=== PATIENT | female | born 1950 | race Caucasian/White ===

== ENCOUNTER 2020-06-16 15:19 | Inpatient (IN) | payer MEDICARE, BC, OTHER ==
[~2020-06-16] VITALS: Ht 175.3 cm; Wt 92.6 kg
[2020-06-16] MEDS ORDERED: METO-239 PO (18:25)
[2020-06-16] MEDS ORDERED: METF500T PO (18:25)
[2020-06-16] MEDS ORDERED: QUET50TA5 PO (18:25)
[2020-06-16] MEDS ORDERED: LACT1CAP2 PO (18:25)
[2020-06-16] MEDS ORDERED: INSU100I13 SQ (18:25)
[2020-06-16] MEDS ORDERED: vitamin d PO (18:25)
[2020-06-16] MEDS ORDERED: ATOR40TA PO (18:25)
[2020-06-16] MEDS ORDERED: MELA3TAB4 PO (18:25)
[2020-06-16] MEDS ORDERED: ASPI-889 PO (18:25)
[2020-06-16] MEDS ORDERED: APIX5TAB3 PO (18:25)
[2020-06-16] MEDS ORDERED: MULT-121 PO (18:25)
[2020-06-16] MEDS ORDERED: OMEP20CA16 PO (18:25)
[2020-06-16] MEDS ORDERED: GABA100C81 PO (18:25)
[2020-06-16] MEDS ORDERED: DIVA125C2 PO (18:25)
[2020-06-16] MEDS ORDERED: HYDR-2155 PO (18:25)
[2020-06-16] MEDS ORDERED: CYAN500T17 PO (18:25)
[2020-06-16] MEDS ORDERED: LINA5TAB4 PO (18:25)
[2020-06-16] MEDS ORDERED: NICO1PAT25 TD (18:25)
[2020-06-16] MEDS ORDERED: MAG HYDROX/AL HYDROX/SIMETH 30 ML ORAL.SUSP PO PRN (20:30)
[2020-06-16] MEDS ORDERED: METHYL SALICYLATE/MENTHOL TOPICAL OINTMENT 57GM TUBE. TP PRN (20:30)
[2020-06-16] MEDS ORDERED: MAGNESIUM HYDROXIDE 2,400 MG/30 ML ORAL.SUSP. PO PRN (20:30)
[2020-06-16] MEDS ORDERED: INSU100I40 SQ (20:52)
[2020-06-16 20:55] VITALS: BP 194/90
[2020-06-16] MEDS ORDERED: DEXTROSE 50% 25 GM / 50ML DISP.SYRIN. IV PRN (21:00)
[2020-06-16] MEDS ORDERED: HYDROcodone/APAP 5/325MG 1 TAB TABLET PO PRN (21:00)
--- NOTE | 2020-06-16 21:53 | PDOC ---
Exam Note: Edgar Note: Please also refer to the separate dictated note~for this date of service dictated separately.~Patient seen individually. Discussed the patient with Nursing staff reviewed the chart.~Reviewed interim history and current functioning. Reviewed vital signs,~Labs/ Radiology~and current medications noted below. Continue current treatment with the changes noted in the dictated addendum note Assessment: Vital Signs/I&O: Vital Signs Date Time Temp Pulse Resp B/P (MAP) Pulse Ox O2 Delivery O2 Flow Rate FiO2 06/16/20 20:55 98.3 103 20 194/90 (124) 97 Room Air Labs: Laboratory Tests Test 06/16/20 20:21 Glucose (Fingerstick) 240 mg/dL (70-99) H Current Medications: I have reviewed the current psychotropics carefully including drug interactions. Risk benefit ratio favors no change other than as noted in my dictated progress note. Diagnosis: Problems: (1) Schizoaffective disorder, bipolar type CHAVO WANG MD Jun 16, 2020 21:53
[2020-06-16] MEDS: ATORVASTATIN CALCIUM 20 MG TABLET PO SCH ×2 (22:42→22:59)
[2020-06-16] MEDS: APIXABAN 5 MG TABLET. PO SCH (22:42)
[2020-06-16] MEDS: MELATONIN 3 MG TABLET PO SCH ×2 (22:42→23:00)
[2020-06-16] MEDS: DIVALPROEX 125 MG CAP.SPRINK PO SCH ×2 (22:42→22:59)
[2020-06-16] MEDS: QUEtiapine 50 MG TABLET. PO SCH (22:42)
[2020-06-16] MEDS: GABAPENTIN 100 MG CAPSULE. PO SCH ×2 (22:42→23:00)
[2020-06-16 22:50] LABS: BASO % 0 % (0-3); EOS # 0.1 x10^3/uL (0.0-0.7); EOS % 2 % (0-3); HEMOGLOBIN 11.3 g/dL (12.0-15.5); LYMPH # 2.7 x10^3/uL (1.0-4.8); LYMPH % 31 % (24-48); MEAN CORPUSCULAR HEMOGLOBIN 28 pg (25-35); MEAN CORPUSCULAR HGB CONC 32 g/dL (31-37); MEAN CORPUSCULAR VOLUME 85 fL (79-100); MONO # 0.8 x10^3/uL (0.0-1.1); MONO % 8 % (0-9); NEUT # 5.3 x10^3uL (1.8-7.7); NEUT % 59 % (31-73); PLATELET COUNT 252 x10^3/uL (140-400); RED BLOOD COUNT 4.11 x10^6/uL (3.50-5.40); RED CELL DISTRIBUTION WIDTH 15.8 % (11.5-14.5); WHITE BLOOD COUNT 8.9 x10^3/uL (4.0-11.0)
--- NOTE | 2020-06-16 22:59 | HP ---
ADMIT DATE: 06/16/2020 PSYCHIATRIC ADMISSION HISTORY AND EVALUATION This was a telehealth visit with the patient. Previously discussed with Sadaf Mendosa, drug safety coordinator and nursing staff. IDENTIFYING DATA: The patient is a 70-year-old female referred to us from [facility] in [place], [place] by her primary care physician/psychiatrist on account of acute exacerbation of schizoaffective disorder, bipolar type. She has been manic, yelling, "help me." She was angry, agitated, aggressive to staff and peers and intrusive, intimidating and restless. She is having sleep and appetite changes, appeared paranoid. Behaviors were deemed dangerous, unmanageable at the facility, having failed outpatient psychiatric interventions. She was referred inpatient stabilization. CHIEF COMPLAINT: "There is nothing wrong with me. We will have a traffic technician to decide this." HISTORY OF PRESENT ILLNESS: The patient reportedly has a history of schizoaffective disorder, bipolar type. She has been increasingly manic, grandiose with marked mood lability, agitation, paranoia as noted above. Behaviors have been disruptive, dangerous, unmanageable at the facility. No active suicidal or homicidal ideation. Since admission on the unit, the patient has been agitated, labile, angry, paranoid, demeaning, using profanities with everyone, threatening. PAST PSYCHIATRIC HISTORY: As above. 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 ALLERGIES: DOXYCYCLINE AND AUGMENTIN. CODE STATUS: Full code. ACCU-CHEKS: Before meals and at bedtime. DIET: Diabetic. Ambulates wheelchair, Justice for transfers. CURRENT PSYCHOTROPICS: Melatonin 3 mg at bedtime, Seroquel 50 mg b.i.d., Depakote Sprinkles 125 mg t.i.d., Zyprexa was added p.r.n. following admission because of her marked psychosis, agitation, and mood lability. FAMILY HISTORY: Noncontributory. SOCIAL HISTORY: No history of alcohol, drug abuse, physical, sexual or elder abuse. She is not known to be a perpetrator. REACTION TO HOSPITALIZATION: The patient accepting of it. REVIEW OF SYSTEMS: Ambulation impaired. No CV, , pulmonary, eye, ENT system symptoms on review. Reliability poor. She was threatening, demanding, loud, labile as I met with her on telehealth rounds. MENTAL STATUS EXAMINATION: The patient is oriented to herself and situation. Speech coherent, rapid, loud at times. Abstraction fair, computation impaired, language function intact, attention span short. Mood and affect, extremely labile. She is very inattentive, distractible, grandiose. LABORATORY DATA: Reviewed. IMPRESSION: Schizoaffective disorder, bipolar type, mixed with psychotic features; anxiety disorder, unspecified; impulse control disorder, unspecified. Rest as above. PLAN: Admit to Geropsychiatry Unit at [facility]. I will see the patient daily individually from a psychiatric standpoint. Medical followup with Dr. Reddy/Dr. Cheema. Continue the patient on her current psychotropics. Check a valproic acid level since she is on Depakote Sprinkles 125 mg t.i.d. Adjust to reach therapeutic level. ESTIMATED LENGTH OF STAY: 10-12 days. DISPOSITION: Plans back to snf when stable. MAN Lisa WANG MD DR: LA/abhinav JOB#: [id number] / [id number]
[2020-06-16 23:01] LABS: ALBUMIN 3.1 g/dL (3.4-5.0); ALBUMIN/GLOBULIN RATIO 0.9 (1.0-1.7); ALK PHOS 86 U/L (46-116); ALT (SGPT) 22 U/L (14-59); ANION GAP 9 (6-14); AST (SGOT) 11 U/L (15-37); BLOOD UREA NITROGEN 16 mg/dL (7-20); BUN/CREATININE RATIO 16 (6-20); CALCIUM 8.6 mg/dL (8.5-10.1); CARBON DIOXIDE 26 mmol/L (21-32); CHLORIDE 103 mmol/L (98-107); GLUCOSE 233 mg/dL (70-99); MAGNESIUM 1.6 mg/dL (1.8-2.4); POTASSIUM 3.7 mmol/L (3.5-5.1); SODIUM 138 mmol/L (136-145); TOTAL BILIRUBIN 0.2 mg/dL (0.2-1.0); TOTAL PROTEIN 6.6 g/dL (6.4-8.2)
[2020-06-16 23:16] LABS: VAL ACID 15 mcg/mL (50-100)
[2020-06-17] MEDS: INSULIN LISPRO 300 UNITS/3 ML VIAL. SQ SCH ×3 (08:00→17:00)
[2020-06-17] MEDS: QUEtiapine 50 MG TABLET. PO SCH ×2 (08:16→21:00)
[2020-06-17] MEDS: METOPROLOL SUCC 24HR ER 25 MG TAB.ER.24H. PO SCH (08:16)
[2020-06-17] MEDS: GABAPENTIN 100 MG CAPSULE. PO SCH ×2 (08:16→21:02)
[2020-06-17] MEDS: APIXABAN 5 MG TABLET. PO SCH ×2 (08:16→21:02)
[2020-06-17] MEDS: CHOLECALCIFEROL (VITAMIN D3) 1,000 UNIT TABLET PO SCH (08:17)
[2020-06-17] MEDS: LINAGLIPTIN 5 MG TABLET PO SCH (08:17)
[2020-06-17] MEDS: DIVALPROEX 125 MG CAP.SPRINK PO SCH ×3 (08:17→20:59)
[2020-06-17] MEDS: metFORMIN 500 MG TABLET PO SCH ×2 (08:17→17:12)
[2020-06-17] MEDS: CYANOCOBALAMIN (VITAMIN B-12) 250 MCG TABLET. PO SCH (08:17)
[2020-06-17] MEDS: ASPIRIN ENTERIC COATED 81 MG TABLET.DR. PO SCH (08:17)
[2020-06-17] MEDS: PANTOPRAZOLE 40 MG TABLET. PO SCH (08:17)
[2020-06-17] MEDS: INSULIN GLARGINE SYRINGE. SQ SCH (08:18)
[2020-06-17] MEDS: MULTIVITAMIN with MINERAL TABLET. PO SCH (08:18)
[2020-06-17] MEDS: LACTOBACILLUS RHAMNOSUS GG 1 CAPSULE. PO SCH (08:18)
[2020-06-17] MEDS: NICOTINE 14MG PATCH. TD SCH (08:19)
--- NOTE | 2020-06-17 11:36 | PN ---
DATE: 06/17/2020 SUBJECTIVE: The patient was seen today, met with the staff, chart reviewed and also covering for Dr. Conteh. Staff reports that the patient is constantly yelling loud, verbally abusive towards staff, increased agitation, restlessness, having significant problems with her thinking and not able to follow directions. OBSERVATION: The patient refused vital signs. The patient slept fair. Appetite normal. The patient is noncompliant with the treatment, constantly yelling, confronting the staff why she is here and wanting to be discharged. The patient is not able to talk about her problems. The patient verbally abusive to the staff. The patient was able to share limited information stating that she was a resident at [facility], but she does not know why she is there and also questioning why she was sent here. The patient denies the problems that she had prior to coming here that was reported. The patient claims she has been working until recently. 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 She also stated that she is single, no children. Her main contact with her brother. The patient did not want to talk about her treatment, her medications, her options. MEDICATIONS: The patient's current medications include Seroquel 50 mg twice a day. The patient is also on Depakote 125 mg t.i.d. p.o. The patient is also on metoprolol, Humalog, Lipitor, gabapentin. LABORATORY DATA: The patient's lab reviewed. The patient's hemoglobin was 11.3, HCT 35. The patient's electrolytes were within normal range. Blood sugar was 240 yesterday, today was 161. The patient's Depakote level was 15. ASSESSMENT: 1. Schizoaffective disorder, bipolar type. 2. Generalized anxiety disorder. PLAN: The patient is currently not willing to participate in any programs. She is hostile, intimidating, loud, verbally abusive towards the staff. The patient currently not showing much insight to her problems. The patient denies any visual or auditory hallucinations. The patient appears to be irritable, rasmussen and also somewhat grandiose and having racing thoughts and also agitated easily. She is oriented to time, place and person. Her memory seems to be intact. Judgment is impaired. Insight limited. The patient's Seroquel to be changed to 150 mg at night and also increase her Depakote 250 mg t.i.d. p.o. and monitor serum Depakote levels. JP DOMINGUEZ MD DR: MARCO/abhinav JOB#: [id number] / [id number]
--- NOTE | 2020-06-17 11:37 | CONS ---
DATE OF CONSULTATION: NO DICTATION MELANIE HUTCHINSON MD DR: CHINMAY/abhinav JOB#: [id number] / [id number]
--- NOTE | 2020-06-17 12:09 | CONS ---
DATE OF CONSULTATION: 06/17/2020 REASON FOR CONSULTATION: Medical management. HISTORY OF PRESENT ILLNESS: The patient is a 70-year-old female patient who was referred from [facility] at [place], [place] by her primary care physician and psychiatrist on account of acute exacerbation of schizoaffective disorder, bipolar type. She has been manic, yelling, help me. She was angry, agitated, aggressive to staff and peers and intrusive, intimidating and restless. She is having sleep and appetite changes, appeared paranoid behaviors that are deemed dangerous, unmanageable at the facility, having failed outpatient psychiatric intervention. She was admitted to this unit for inpatient psychiatric stabilization. PAST MEDICAL HISTORY: Significant for type 2 diabetes mellitus, hypertension, hyperlipidemia, atrial fibrillation, chronic kidney disease, history of DVT, history of osteomyelitis. PAST SURGICAL HISTORY: Significant for left below-knee amputation, tonsillectomy and cholecystectomy. ALLERGIES: SHE IS ALLERGIC TO AMOXICILLIN/CLAVULANIC ACID, AND DOXYCYCLINE. MEDICATIONS: She is currently on following medications: She is on Nicoderm patch 14 mg transdermal daily, apixaban 5 mg twice a day, atorvastatin calcium 40 mg at bedtime. She is on metoprolol succinate 25 mg once a day, aspirin 81 mg once a day, hydrocodone/APAP 5/325 one tablet every 4 hours, divalproex 125 mg 3 times a day, gabapentin 100 mg twice a day, quetiapine fumarate 50 mg twice a day, lactobacillus acidophilus 1 capsule once a day, omeprazole 20 mg twice a day, metformin 500 mg twice a day with meals. She is on linagliptin 5 mg daily. She is on Lantus insulin 35 units subcutaneously daily. She is on insulin lispro 2-5 units subcutaneously 4 times a day before meals and bedtime. She is on cyanocobalamin 500 mcg tablet once a day, multivitamin 1 tablet once a day, melatonin 3 mg at bedtime, and vitamin E 400 units once a day. FAMILY HISTORY: Noncontributory. SOCIAL HISTORY: She is a resident at [facility]. She apparently does not smoke, drink alcohol or use recreational drugs. REVIEW OF SYSTEMS: As per history of present illness. PHYSICAL EXAMINATION: GENERAL: When I examined her, she was sitting in her wheelchair comfortably, in no apparent distress. No pallor, jaundice, cyanosis or thyromegaly. No jugular venous distention or limb edema. VITAL SIGNS: Her heart rate was 103, blood pressure was 194/90, temperature was 98.3, respiratory rate 20, and oxygen saturation was 97%. HEAD, EYES, EARS, NOSE AND THROAT: Showed normocephalic, atraumatic. NECK: Supple. HEART: Normal first and second heart sounds. No gallop or murmur. CHEST: Clear to auscultation. No crepitation or rhonchi. ABDOMEN: Distended, soft, nontender. NEUROLOGIC: She is awake, alert, responding appropriately. All cranial nerves intact. EXTREMITIES: She moves her upper extremities without difficulty. She wheels herself around in her wheelchair. She has left below-knee amputation. LABORATORY DATA: Showed a white cell count of 8900, hemoglobin 11, hematocrit 35, MCV 85 and platelet count 252,000. Her chemistry showed a serum sodium 138, potassium 3.7, chloride 103, bicarbonate 26, anion gap of 9, BUN 16, creatinine 1, estimated GFR was 55 mL per minute. Her glucose was 233, calcium was 8.6, magnesium was 1.6. Total bilirubin, AST, ALT, alkaline phosphatase were normal. Total protein 6.6, albumin 3.1. Her D-dimer was high at 0.94 and urine toxic screen showed his valproic acid was only 15 mcg/mL. IMPRESSION: In summary, this is a 70-year-old female patient who was referred from [facility] on account of acute exacerbation of her schizoaffective disorder, bipolar type. She has been manic, yelling, angry, agitated, aggressive to staff and peers and intrusive and intimidating and restless. She apparently has failed outpatient psychiatric several interventions and given that her behaviors were deemed dangerous and unmanageable, she was admitted for inpatient psychiatric stabilization. Medically, she has type 2 diabetes mellitus, hyperlipidemia, heart disease, atrial fibrillation, chronic kidney disease, history of DVT, left below-knee amputation and history of osteomyelitis. The patient's blood pressures seem to be poorly controlled. Unfortunately, while she is agitated, it might be the reason why her blood pressure is extremely high like that. She is only on metoprolol 25 mg once a day and her heart rate is high and could theoretically increase her metoprolol to 50 mg. Other than that, she has also normochromic normocytic anemia and she does have hypomagnesemia and chronic kidney disease. Her blood pressure is suboptimally controlled. PLAN: My plan is to continue to monitor her blood sugar and adjust her insulin as needed. Continue to monitor her blood pressure, if continues to be high, we could increase her metoprolol to 50 mg or even higher as her heart rate and blood pressure are extremely high. Thank you, Dr. Conteh, for allowing me to participate in the care of this patient. MELANIE HUTCHINSON MD DR: CHINMAY/abhinav JOB#: [id number] / [id number]
[2020-06-17 12:10] LABS: THYROID STIM HORMONE (TSH) 1.586 uIU/mL (0.358-3.740)
[2020-06-17 14:06] LABS: BILIRUBIN,URINE NEG (NEG); CLARITY,URINE CLOUDY; COLOR,URINE YELLOW; GLUCOSE,URINE 250 mg/dL (NEG)
[2020-06-17 14:07] LABS: BACTERIA,URINE MANY /HPF (0-FEW); NITRITE,URINE NEG (NEG); RBC,URINE OCC /HPF (0-2); SQUAMOUS EPITHELIAL CELL,UR FEW /LPF; UROBILINOGEN,URINE 0.2 mg/dL (0.2 mg/dL); WBC,URINE >40 /HPF (0-4)
[2020-06-17 15:28] VITALS: BP 146/82
[2020-06-17] MEDS: MELATONIN 3 MG TABLET PO SCH (20:59)
[2020-06-17] MEDS: ATORVASTATIN CALCIUM 20 MG TABLET PO SCH (21:01)
[2020-06-18 01:16] LABS: THYROXINE 5.9 ug/dL (4.5-12.0)
[2020-06-18 05:41] LABS: HEMOGLOBIN A1C 8.3 % (4.8-5.6)
[2020-06-18 06:32] VITALS: BP 151/73
[2020-06-18] MEDS: INSULIN LISPRO 300 UNITS/3 ML VIAL. SQ SCH ×3 (08:00→17:00)
[2020-06-18] MEDS: METOPROLOL SUCC 24HR ER 25 MG TAB.ER.24H. PO SCH (08:12)
[2020-06-18] MEDS: NICOTINE 14MG PATCH. TD SCH (08:12)
[2020-06-18] MEDS: MULTIVITAMIN with MINERAL TABLET. PO SCH (08:12)
[2020-06-18] MEDS: LINAGLIPTIN 5 MG TABLET PO SCH (08:12)
[2020-06-18] MEDS: LACTOBACILLUS RHAMNOSUS GG 1 CAPSULE. PO SCH (08:12)
[2020-06-18] MEDS: PANTOPRAZOLE 40 MG TABLET. PO SCH (08:12)
[2020-06-18] MEDS: ASPIRIN ENTERIC COATED 81 MG TABLET.DR. PO SCH (08:12)
[2020-06-18] MEDS: APIXABAN 5 MG TABLET. PO SCH ×2 (08:12→20:28)
[2020-06-18] MEDS: GABAPENTIN 100 MG CAPSULE. PO SCH ×2 (08:12→20:27)
[2020-06-18] MEDS: CYANOCOBALAMIN (VITAMIN B-12) 250 MCG TABLET. PO SCH (08:13)
[2020-06-18] MEDS: CHOLECALCIFEROL (VITAMIN D3) 1,000 UNIT TABLET PO SCH (08:13)
[2020-06-18] MEDS: DIVALPROEX 125 MG CAP.SPRINK PO SCH ×3 (08:13→20:28)
[2020-06-18] MEDS: metFORMIN 500 MG TABLET PO SCH ×2 (08:13→17:16)
[2020-06-18] MEDS: INSULIN GLARGINE SYRINGE. SQ SCH (08:14)
[2020-06-18] MEDS: QUEtiapine 25 MG TABLET. PO PRN ×2 (10:34→18:14)
--- NOTE | 2020-06-18 12:52 | PN ---
DATE: 06/18/2020 SUBJECTIVE: The patient was seen today, met with the staff, chart reviewed. The patient's behavior remains the same. She is angry being here, wanting to live and also angry with the staff. The patient is not admitting to having any problems. OBSERVATION: VITAL SIGNS: Temperature 97.9, blood pressure 151/73, pulse 73, respirations 18, O2 sat 96%. GENERAL: Slept about 8 hours last night. The patient's appetite is normal. The patient continues to have behavior problems, resistive to care, wanting to stay in bed, not accepting of her treatment. She is also loud, hollering, cursing, not showing much insight to her problems. The patient has taken her medication last night, she took Seroquel 150 mg at night. Apparently, she slept better and staff reports that the patient is still having problems during the daytime and she was started on Seroquel 25 mg every 4-6 hours p.r.n. The patient is not presenting with any medical issues at this time. LABORATORY DATA: Reviewed. Her hemoglobin was 11.3. Blood sugar fluctuates around 160 to 274. The patient's hemoglobin A1c 8.3 also has hyperlipidemia. ASSESSMENT: 1. Schizoaffective disorder, bipolar type. 2. Generalized anxiety disorder. PLAN: To continue with the current treatment plan. LENGTH OF STAY: 5-7 days. JP DOMINGUEZ MD DR: MARCO/abhinav JOB#: [id number] / [id number]
[2020-06-18 16:01] VITALS: BP 150/80
[2020-06-18] MEDS: QUEtiapine 50 MG TABLET. PO SCH (20:27)
[2020-06-18] MEDS: ATORVASTATIN CALCIUM 20 MG TABLET PO SCH (20:27)
[2020-06-18] MEDS: MELATONIN 3 MG TABLET PO SCH (20:28)
[2020-06-19 06:00] VITALS: BP 166/92
[2020-06-19] MEDS: INSULIN LISPRO 300 UNITS/3 ML VIAL. SQ SCH ×3 (08:00→17:00)
[2020-06-19] MEDS: METOPROLOL SUCC 24HR ER 25 MG TAB.ER.24H. PO SCH (09:01)
[2020-06-19] MEDS: metFORMIN 500 MG TABLET PO SCH ×2 (09:01→17:17)
[2020-06-19] MEDS: DIVALPROEX 125 MG CAP.SPRINK PO SCH ×3 (09:01→21:34)
[2020-06-19] MEDS: ASPIRIN ENTERIC COATED 81 MG TABLET.DR. PO SCH (09:01)
[2020-06-19] MEDS: GABAPENTIN 100 MG CAPSULE. PO SCH ×2 (09:01→21:34)
[2020-06-19] MEDS: CHOLECALCIFEROL (VITAMIN D3) 1,000 UNIT TABLET PO SCH (09:01)
[2020-06-19] MEDS: CYANOCOBALAMIN (VITAMIN B-12) 250 MCG TABLET. PO SCH (09:01)
[2020-06-19] MEDS: LACTOBACILLUS RHAMNOSUS GG 1 CAPSULE. PO SCH (09:01)
[2020-06-19] MEDS: PANTOPRAZOLE 40 MG TABLET. PO SCH (09:02)
[2020-06-19] MEDS: LINAGLIPTIN 5 MG TABLET PO SCH (09:02)
[2020-06-19] MEDS: NICOTINE 14MG PATCH. TD SCH (09:02)
[2020-06-19] MEDS: MULTIVITAMIN with MINERAL TABLET. PO SCH (09:02)
[2020-06-19] MEDS: APIXABAN 5 MG TABLET. PO SCH ×2 (09:02→21:34)
[2020-06-19] MEDS: INSULIN GLARGINE SYRINGE. SQ SCH (09:07)
[2020-06-19] MEDS: QUEtiapine 25 MG TABLET. PO PRN (12:55)
[2020-06-19 16:26] VITALS: BP 135/83
--- NOTE | 2020-06-19 20:59 | PDOC ---
Exam Note: Edgar Note: Please also refer to the separate dictated note~for this date of service dictated separately.~Patient seen individually. Discussed the patient with Nursing staff reviewed the chart.~Reviewed interim history and current functioning. Reviewed vital signs,~Labs/ Radiology~and current medications noted below. Continue current treatment with the changes noted in the dictated addendum note Assessment: Vital Signs/I&O: Vital Signs Date Time Temp Pulse Resp B/P (MAP) Pulse Ox O2 Delivery O2 Flow Rate FiO2 06/19/20 16:26 98.1 95 16 135/83 (100) 99 06/18/20 06:32 Room Air I & O 06/18/20 06/18/20 06/19/20 15:00 23:00 07:00 Intake Total 360 ml 360 ml Balance 360 ml 360 ml Labs: Laboratory Tests Test 06/19/20 07:20 06/19/20 11:32 06/19/20 17:01 06/19/20 19:07 Glucose (Fingerstick) 189 mg/dL (70-99) H 190 mg/dL (70-99) H 211 mg/dL (70-99) H 253 mg/dL (70-99) H Current Medications: I have reviewed the current psychotropics carefully including drug interactions. Risk benefit ratio favors no change other than as noted in my dictated progress note. Diagnosis: Problems: (1) Schizoaffective disorder, bipolar type (2) Bipolar disorder, curr episode mixed, severe, with psychotic features (3) Anxiety disorder, unspecified (4) Impulse control disorder, unspecified CHAVO WANG MD Jun 19, 2020 20:59
[2020-06-19] MEDS: ATORVASTATIN CALCIUM 20 MG TABLET PO SCH (21:34)
[2020-06-19] MEDS: QUEtiapine 50 MG TABLET. PO SCH (21:34)
[2020-06-19] MEDS: MELATONIN 3 MG TABLET PO SCH (21:35)
[2020-06-20 05:43] VITALS: BP 109/66
[2020-06-20 07:30] LABS: BASO % 1 % (0-3); EOS # 0.2 x10^3/uL (0.0-0.7); EOS % 2 % (0-3); HEMATOCRIT 33.6 % (36.0-47.0); HEMOGLOBIN 10.8 g/dL (12.0-15.5); LYMPH # 2.6 x10^3/uL (1.0-4.8); LYMPH % 37 % (24-48); MEAN CORPUSCULAR HEMOGLOBIN 27 pg (25-35); MEAN CORPUSCULAR HGB CONC 32 g/dL (31-37); MEAN CORPUSCULAR VOLUME 85 fL (79-100); MONO # 0.6 x10^3/uL (0.0-1.1); MONO % 9 % (0-9); NEUT # 3.5 x10^3uL (1.8-7.7); NEUT % 51 % (31-73); PLATELET COUNT 252 x10^3/uL (140-400); RED BLOOD COUNT 3.95 x10^6/uL (3.50-5.40); RED CELL DISTRIBUTION WIDTH 15.6 % (11.5-14.5); WHITE BLOOD COUNT 6.9 x10^3/uL (4.0-11.0)
[2020-06-20 07:39] LABS: ALBUMIN 2.8 g/dL (3.4-5.0); ALBUMIN/GLOBULIN RATIO 0.8 (1.0-1.7); ALK PHOS 63 U/L (46-116); ALT (SGPT) 24 U/L (14-59); ANION GAP 10 (6-14); AST (SGOT) 14 U/L (15-37); BLOOD UREA NITROGEN 18 mg/dL (7-20); BUN/CREATININE RATIO 20 (6-20); CALCIUM 8.7 mg/dL (8.5-10.1); CARBON DIOXIDE 26 mmol/L (21-32); CHLORIDE 107 mmol/L (98-107); CREATININE 0.9 mg/dL (0.6-1.0); GFR 62.1; GLUCOSE 116 mg/dL (70-99); POTASSIUM 3.4 mmol/L (3.5-5.1); SODIUM 143 mmol/L (136-145); TOTAL BILIRUBIN 0.4 mg/dL (0.2-1.0); TOTAL PROTEIN 6.1 g/dL (6.4-8.2)
[2020-06-20 07:47] LABS: VAL ACID 32 mcg/mL (50-100)
[2020-06-20] MEDS: INSULIN LISPRO 300 UNITS/3 ML VIAL. SQ SCH ×3 (08:00→17:00)
[2020-06-20] MEDS: GABAPENTIN 100 MG CAPSULE. PO SCH ×2 (08:28→20:53)
[2020-06-20] MEDS: DIVALPROEX 125 MG CAP.SPRINK PO SCH ×2 (08:28→13:04)
[2020-06-20] MEDS: LINAGLIPTIN 5 MG TABLET PO SCH (08:28)
[2020-06-20] MEDS: CYANOCOBALAMIN (VITAMIN B-12) 250 MCG TABLET. PO SCH (08:28)
[2020-06-20] MEDS: metFORMIN 500 MG TABLET PO SCH ×2 (08:29→17:27)
[2020-06-20] MEDS: METOPROLOL SUCC 24HR ER 25 MG TAB.ER.24H. PO SCH (08:29)
[2020-06-20] MEDS: MULTIVITAMIN with MINERAL TABLET. PO SCH (08:29)
[2020-06-20] MEDS: PANTOPRAZOLE 40 MG TABLET. PO SCH (08:30)
[2020-06-20] MEDS: NICOTINE 14MG PATCH. TD SCH (08:30)
[2020-06-20] MEDS: LACTOBACILLUS RHAMNOSUS GG 1 CAPSULE. PO SCH (08:30)
[2020-06-20] MEDS: APIXABAN 5 MG TABLET. PO SCH ×2 (08:30→20:53)
[2020-06-20] MEDS: ASPIRIN ENTERIC COATED 81 MG TABLET.DR. PO SCH (08:30)
[2020-06-20] MEDS: CHOLECALCIFEROL (VITAMIN D3) 1,000 UNIT TABLET PO SCH (08:30)
[2020-06-20] MEDS: INSULIN GLARGINE SYRINGE. SQ SCH (08:42)
--- NOTE | 2020-06-20 08:53 | PDOC ---
Exam Note: Edgar Note: This note is a late entry for 06/19/2020 covers elements not covered in my initial note. Subjective: The patient was reviewed on telehealth rounds in the morning of 06/19/2020 for a treatment team meeting with Iraida Wills, Sadaf Aguilar and Mari (geriatric social work professor), Zonia Merida, activity therapy and Treasure MELGAR. The patient was also seen in the evening on telehealth rounds. Reviewed information from Dr. Gleason, reviewed the chart. She slept 8-1/2 hours previous night. She has been having episodes of yelling, agitation, falling to the floor from the wheelchair. Stool for C. difficile is negative. Valproic acid level is 15, subtherapeutic on 250 mg twice a day and we will repeat labs and a level in the morning. Review of Systems: Ambulation impaired. No CV, , pulmonary, eye, ENT system symptoms on review. Mental Status Exam: The patient is oriented to herself and situation. Speech is coherent, rapid, loud, disruptive, yelling, and abrasive as I met with her, demanding, threatening to staff. Attention span is short. Language function is intact. Attention span is short. Mood and affect remains labile. Laboratory Data: Reviewed. Impression: Schizoaffective disorder bipolar type, mixed with psychotic features. Anxiety disorder unspecified. Impulse control disorder unspecified. Plan: Check CBC, CMP, valproic acid level, ammonia level in the morning. Adjust Depakote to reach therapeutic level. Continue rest of the psychotropics. We may need to increase Seroquel as a mood stabilizer. UA is greater than 100,000 colonies of E. coli. We will defer to Dr. Reddy to treat the UTI. Assessment: Vital Signs/I&O: Vital Signs Date Time Temp Pulse Resp B/P (MAP) Pulse Ox O2 Delivery O2 Flow Rate FiO2 06/20/20 08:29 85 109/66 06/20/20 05:43 97.0 18 97 06/18/20 06:32 Room Air I & O 06/19/20 06/19/20 06/20/20 15:00 23:00 07:00 Intake Total 720 ml 480 ml Balance 720 ml 480 ml Labs: Laboratory Tests Test 06/19/20 11:32 06/19/20 17:01 06/19/20 19:07 1/19/21 06:28 Glucose (Fingerstick) 190 mg/dL (70-99) H 211 mg/dL (70-99) H 253 mg/dL (70-99) H White Blood Count 6.9 x10^3/uL (4.0-11.0) Red Blood Count 3.95 x10^6/uL (3.50-5.40) Hemoglobin 10.8 g/dL (12.0-15.5) L Hematocrit 33.6 % (36.0-47.0) L Mean Corpuscular Volume 85 fL (79-100) Mean Corpuscular Hemoglobin 27 pg (25-35) Mean Corpuscular Hemoglobin Concent 32 g/dL (31-37) Red Cell Distribution Width 15.6 % (11.5-14.5) H Platelet Count 252 x10^3/uL (140-400) Neutrophils (%) (Auto) 51 % (31-73) Lymphocytes (%) (Auto) 37 % (24-48) Monocytes (%) (Auto) 9 % (0-9) Eosinophils (%) (Auto) 2 % (0-3) Basophils (%) (Auto) 1 % (0-3) Neutrophils # (Auto) 3.5 x10^3uL (1.8-7.7) Lymphocytes # (Auto) 2.6 x10^3/uL (1.0-4.8) Monocytes # (Auto) 0.6 x10^3/uL (0.0-1.1) Eosinophils # (Auto) 0.2 x10^3/uL (0.0-0.7) Basophils # (Auto) 0.0 x10^3/uL (0.0-0.2) Sodium Level 143 mmol/L (136-145) Potassium Level 3.4 mmol/L (3.5-5.1) L Chloride Level 107 mmol/L (98-107) Carbon Dioxide Level 26 mmol/L (21-32) Anion Gap 10 (6-14) Blood Urea Nitrogen 18 mg/dL (7-20) Creatinine 0.9 mg/dL (0.6-1.0) Estimated GFR (Cockcroft-Gault) 62.1 BUN/Creatinine Ratio 20 (6-20) Glucose Level 116 mg/dL (70-99) H Calcium Level 8.7 mg/dL (8.5-10.1) Total Bilirubin 0.4 mg/dL (0.2-1.0) Aspartate Amino Transferase (AST) 14 U/L (15-37) L Alanine Aminotransferase (ALT) 24 U/L (14-59) Alkaline Phosphatase 63 U/L (46-116) Total Protein 6.1 g/dL (6.4-8.2) L Albumin 2.8 g/dL (3.4-5.0) L Albumin/Globulin Ratio 0.8 (1.0-1.7) L Valproic Acid Level 32 mcg/mL (50-100) L Valproic Acid Last Dose Date 06/19/20 Valproic Acid Last Dose Time 2100 Test 06/20/20 07:38 Glucose (Fingerstick) 139 mg/dL (70-99) H Current Medications: Meds: Laboratory Tests Test 06/19/20 11:32 06/19/20 17:01 06/19/20 19:07 06/20/20 06:28 Glucose (Fingerstick) 190 mg/dL 211 mg/dL 253 mg/dL White Blood Count 6.9 x10^3/uL Red Blood Count 3.95 x10^6/uL Hemoglobin 10.8 g/dL Hematocrit 33.6 % Mean Corpuscular Volume 85 fL Mean Corpuscular Hemoglobin 27 pg Mean Corpuscular Hemoglobin Concent 32 g/dL Red Cell Distribution Width 15.6 % Platelet Count 252 x10^3/uL Neutrophils (%) (Auto) 51 % Lymphocytes (%) (Auto) 37 % Monocytes (%) (Auto) 9 % Eosinophils (%) (Auto) 2 % Basophils (%) (Auto) 1 % Neutrophils # (Auto) 3.5 x10^3uL Lymphocytes # (Auto) 2.6 x10^3/uL Monocytes # (Auto) 0.6 x10^3/uL Eosinophils # (Auto) 0.2 x10^3/uL Basophils # (Auto) 0.0 x10^3/uL Sodium Level 143 mmol/L Potassium Level 3.4 mmol/L Chloride Level 107 mmol/L Carbon Dioxide Level 26 mmol/L Anion Gap 10 Blood Urea Nitrogen 18 mg/dL Creatinine 0.9 mg/dL Estimated GFR (Cockcroft-Gault) 62.1 BUN/Creatinine Ratio 20 Glucose Level 116 mg/dL Calcium Level 8.7 mg/dL Total Bilirubin 0.4 mg/dL Aspartate Amino Transf (AST/SGOT) 14 U/L Alanine Aminotransferase (ALT/SGPT) 24 U/L Alkaline Phosphatase 63 U/L Total Protein 6.1 g/dL Albumin 2.8 g/dL Albumin/Globulin Ratio 0.8 Valproic Acid (Depakene) Level 32 mcg/mL Valproic Acid Last Dose Date 06/19/20 Valproic Acid Last Dose Time 2100 Test 06/20/20 07:38 Glucose (Fingerstick) 139 mg/dL Current Medications Medications (Trade) Dose Ordered Sig/Alexx Route PRN Reason Start Time Stop Time Status Last Admin Dose Admin Acetaminophen (Tylenol) 650 mg PRN Q6HRS PRN PO MILD PAIN / TEMP > 100.3'F 06/16/20 20:30 Multi-Ingredient Ointment (Analgesic [place]) 1 rocio PRN QID PRN TP MUSCLE PAIN 06/16/20 20:30 Al Hydroxide/Mg Hydroxide (Mylanta Plus Xs) 15 ml PRN AFTMEALHC PRN PO DYSPEPSIA 06/16/20 20:30 Magnesium Hydroxide (Milk Of Magnesia) 2,400 mg PRN QHS PRN PO CONSTIPATION 06/16/20 20:30 Apixaban (Eliquis) 5 mg BID PO 06/16/20 21:00 06/20/20 08:30 Aspirin (Aspirin Enteric Coated) 81 mg DAILY PO 06/17/20 09:00 06/20/20 08:30 Divalproex Sodium (Depakote Sprinkles) 125 mg TID PO 06/16/20 21:30 06/17/20 11:56 DC 06/17/20 08:17 Gabapentin (Neurontin) 100 mg BID PO 06/16/20 21:30 06/20/20 08:28 Acetaminophen/ Hydrocodone Bitart (Lortab 5/325) 1 tab PRN Q4HRS PRN PO PAIN 06/16/20 21:00 Linagliptin (Tradjenta) 5 mg DAILY PO 06/17/20 09:00 06/20/20 08:28 Melatonin (Melatonin) 3 mg HS PO 06/16/20 21:30 06/19/20 21:35 Metformin HCl (Glucophage) 750 mg BIDWMEALS PO 06/17/20 08:00 06/20/20 08:29 Metoprolol Succinate (Toprol Xl) 25 mg DAILY PO 06/17/20 09:00 06/20/20 08:29 Nicotine (Nicoderm Cq 14mg Patch) 1 patch DAILY TD 06/17/20 09:00 06/20/20 08:30 Quetiapine Fumarate (SEROquel) 50 mg BID PO 06/16/20 21:30 06/17/20 11:56 DC 06/17/20 08:16 Atorvastatin Calcium (Lipitor) 40 mg QHS PO 06/16/20 21:30 06/19/20 21:34 Cyanocobalamin (Vitamin B-12) 500 mcg DAILY PO 06/17/20 09:00 06/20/20 08:28 Insulin Glargine (Lantus Syringe) 35 unit DAILY SQ 06/17/20 09:00 06/20/20 08:42 Lactobacillus Rhamnosus (Culturelle) 1 cap DAILY PO 06/17/20 09:00 06/20/20 08:30 Multivitamins/ Calcium (Thera-M Plus) 1 tab DAILY PO 06/17/20 09:00 06/20/20 08:29 Pantoprazole Sodium (Protonix) 40 mg DAILY PO 06/17/20 09:00 06/20/20 08:30 Vitamin D (Vitamin D3) 500 unit DAILY PO 06/17/20 09:00 06/20/20 08:30 Insulin Human Lispro (HumaLOG) 0-5 UNITS TIDWMEALS SQ 06/17/20 08:00 06/17/20 12:18 Dextrose (Dextrose 50%-Water Syringe) 12.5 gm PRN Q15MIN PRN IV SEE COMMENTS 06/16/20 21:00 Olanzapine (ZyPREXA ZYDIS) 2.5 mg PRN Q2HRS PRN PO PSYCHOSIS/Agitation 06/16/20 21:15 06/18/20 18:00 DC 06/18/20 08:45 Divalproex Sodium (Depakote Sprinkles) 250 mg TID PO 06/17/20 14:00 06/20/20 08:28 Quetiapine Fumarate (SEROquel) 150 mg HS PO 06/17/20 21:00 06/19/20 21:34 Quetiapine Fumarate (SEROquel) 25 mg PRN Q4HRS PRN PO AGITATION 06/18/20 10:00 06/19/20 12:55 I have reviewed the current psychotropics carefully including drug interactions. Risk benefit ratio favors no change other than as noted in my dictated progress note. Diagnosis: Problems: (1) Schizoaffective disorder, bipolar type (2) Impulse control disorder, unspecified (3) Anxiety disorder, unspecified (4) Bipolar disorder, curr episode mixed, severe, with psychotic features CHAVO WANG MD Jun 20, 2020 08:53
--- NOTE | 2020-06-20 11:25 | TX PLAN ---
Interdisciplinary Tx Plan Admission Information Jun 16, 2020 at 19:54 Legal Status (on Admission): Voluntary DPOA/Guardian Name: Jerman Carrera Contact Other Contact Name: Lucy Murry Other Contact Verified Code Status: Full Code Allergies: Coded Allergies: amoxicillin (Verified Allergy, Unknown, 06/16/20) clavulanic acid (Verified Allergy, Unknown, 06/16/20) doxycycline (Verified Allergy, Unknown, 06/16/20) Diagnoses Primary Diagnosis: Schizoaffective Bipolar type exacerbation Reasons for Admission: Aggressive, Agitated, Combative, Poor impulse control Problem in Patient's Words: When she is bored,she creates trouble. Her behaviors have also increased and concerned that her medications are not stable. Additional Admission Comments: According to the intake, pt is manic,yelling out "help me", angry/agitated, aggressive towards staff and peers, invading others' space, intimidating, restless Problems Active Problems: Medication resistive Yelling out Agitated Aggressive Restless Inactive Problems: N/A Pt Strengths/Limitations Ability for [place]: Poor Cognitive Functioning/Ability: Poor Communication Skills/Ability: Fair Financial Resources: Fair Insight/Judgement: Poor Intellectual Ability: Fair Physical Health: Poor Social Skills: Poor Stability in Family: Good Stability in School/Work: Poor Verbal Skills: Fair Discharge Criteria Discharge Criteria: No need for close observ., Adequate arrangements @DC, Improved behavior, Improved mood/thought Preliminary Discharge Plan Preliminary DC Plan: Current Living Arrange. Special Precautions Fall Risk: Moderate Initial D/C Plan Pt will plan to return to [facility] Identified Discharge Needs: Psychiatric services Currently Utilized Resources Currently Utilized Resources/P: Primary Care Physician Telehealth for counseling Referrals Community Resources: Psychiatrist Identified Problems/Hx/Goals Objectives/Short-Term Goals Short Term Goals: Dec. Aggression, Dec. Hallucination/Delus, Dec. Outbursts, Improved Social Skills, Promote Coping Skill Short Term Goals in Patient's: N/A Interventions/Frequency Staff Interventions/Frequency&: Psychiatrist to assess pt at least 3x per week for medicaiton management. Social Work to assess pt at least 2x per week for discharge planning and identification of any barriers to care. Nursing to asses pt medication effects, behavioral management, and complete 15 minute checks. Encourage group participation in group activities (if applicable) or 1:1 engagement based off Activity Dept goals. History Vocational History: Pt worked for the post [employer] for many years. 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 Pt has a Bachelors and Masters in Business Administration Community Follow-up Primary Care Physician Telehealth for counseling Community Provider/Family Inpu: "Just make sure you keep her busy. It'll help everyone out in the long run" Treatment Plan Explained Patient/Living Manager had this treatment plan explained to him/her as indicated by the signature below and has been given the opportunity to ask questions and make suggestions: Date: Patient/Living Manager Signature: Patient/Living Manager Decline: JEANNIE Michael Jun 20, 2020 11:25
[2020-06-20] MEDS: QUEtiapine 25 MG TABLET. PO PRN (13:04)
[2020-06-20 16:02] VITALS: BP 185/83
[2020-06-20] MEDS: ATORVASTATIN CALCIUM 20 MG TABLET PO SCH (20:53)
[2020-06-20] MEDS: QUEtiapine 50 MG TABLET. PO SCH (20:53)
[2020-06-20] MEDS: MELATONIN 3 MG TABLET PO SCH (20:53)
[2020-06-20] MEDS: SMZ/TMP 400/80MG TABLET. PO SCH (20:55)
--- NOTE | 2020-06-20 21:01 | PDOC ---
Exam Note: Edgar Note: Please also refer to the separate dictated note~for this date of service dictated separately.~Patient seen individually. Discussed the patient with Nursing staff reviewed the chart.~Reviewed interim history and current functioning. Reviewed vital signs,~Labs/ Radiology~and current medications noted below. Continue current treatment with the changes noted in the dictated addendum note Assessment: Vital Signs/I&O: Vital Signs Date Time Temp Pulse Resp B/P (MAP) Pulse Ox O2 Delivery O2 Flow Rate FiO2 06/20/20 16:02 98.6 83 20 185/83 (117) 97 06/18/20 06:32 Room Air I & O 06/19/20 06/19/20 06/20/20 15:00 23:00 07:00 Intake Total 720 ml 480 ml Balance 720 ml 480 ml Labs: Laboratory Tests Test 06/20/20 06:28 06/20/20 07:38 06/20/20 11:58 06/20/20 17:02 White Blood Count 6.9 x10^3/uL (4.0-11.0) Red Blood Count 3.95 x10^6/uL (3.50-5.40) Hemoglobin 10.8 g/dL (12.0-15.5) L Hematocrit 33.6 % (36.0-47.0) L Mean Corpuscular Volume 85 fL (79-100) Mean Corpuscular Hemoglobin 27 pg (25-35) Mean Corpuscular Hemoglobin Concent 32 g/dL (31-37) Red Cell Distribution Width 15.6 % (11.5-14.5) H Platelet Count 252 x10^3/uL (140-400) Neutrophils (%) (Auto) 51 % (31-73) Lymphocytes (%) (Auto) 37 % (24-48) Monocytes (%) (Auto) 9 % (0-9) Eosinophils (%) (Auto) 2 % (0-3) Basophils (%) (Auto) 1 % (0-3) Neutrophils # (Auto) 3.5 x10^3uL (1.8-7.7) Lymphocytes # (Auto) 2.6 x10^3/uL (1.0-4.8) Monocytes # (Auto) 0.6 x10^3/uL (0.0-1.1) Eosinophils # (Auto) 0.2 x10^3/uL (0.0-0.7) Basophils # (Auto) 0.0 x10^3/uL (0.0-0.2) Sodium Level 143 mmol/L (136-145) Potassium Level 3.4 mmol/L (3.5-5.1) L Chloride Level 107 mmol/L (98-107) Carbon Dioxide Level 26 mmol/L (21-32) Anion Gap 10 (6-14) Blood Urea Nitrogen 18 mg/dL (7-20) Creatinine 0.9 mg/dL (0.6-1.0) Estimated GFR (Cockcroft-Gault) 62.1 BUN/Creatinine Ratio 20 (6-20) Glucose Level 116 mg/dL (70-99) H Calcium Level 8.7 mg/dL (8.5-10.1) Total Bilirubin 0.4 mg/dL (0.2-1.0) Aspartate Amino Transferase (AST) 14 U/L (15-37) L Alanine Aminotransferase (ALT) 24 U/L (14-59) Alkaline Phosphatase 63 U/L (46-116) Total Protein 6.1 g/dL (6.4-8.2) L Albumin 2.8 g/dL (3.4-5.0) L Albumin/Globulin Ratio 0.8 (1.0-1.7) L Valproic Acid Level 32 mcg/mL (50-100) L Valproic Acid Last Dose Date 06/19/20 Valproic Acid Last Dose Time 2100 Glucose (Fingerstick) 139 mg/dL (70-99) H 151 mg/dL (70-99) H 151 mg/dL (70-99) H Test 06/20/20 19:00 Glucose (Fingerstick) 182 mg/dL (70-99) H Current Medications: Meds: Laboratory Tests Test 06/20/20 06:28 06/20/20 07:38 06/20/20 11:58 06/20/20 17:02 White Blood Count 6.9 x10^3/uL Red Blood Count 3.95 x10^6/uL Hemoglobin 10.8 g/dL Hematocrit 33.6 % Mean Corpuscular Volume 85 fL Mean Corpuscular Hemoglobin 27 pg Mean Corpuscular Hemoglobin Concent 32 g/dL Red Cell Distribution Width 15.6 % Platelet Count 252 x10^3/uL Neutrophils (%) (Auto) 51 % Lymphocytes (%) (Auto) 37 % Monocytes (%) (Auto) 9 % Eosinophils (%) (Auto) 2 % Basophils (%) (Auto) 1 % Neutrophils # (Auto) 3.5 x10^3uL Lymphocytes # (Auto) 2.6 x10^3/uL Monocytes # (Auto) 0.6 x10^3/uL Eosinophils # (Auto) 0.2 x10^3/uL Basophils # (Auto) 0.0 x10^3/uL Sodium Level 143 mmol/L Potassium Level 3.4 mmol/L Chloride Level 107 mmol/L Carbon Dioxide Level 26 mmol/L Anion Gap 10 Blood Urea Nitrogen 18 mg/dL Creatinine 0.9 mg/dL Estimated GFR (Cockcroft-Gault) 62.1 BUN/Creatinine Ratio 20 Glucose Level 116 mg/dL Calcium Level 8.7 mg/dL Total Bilirubin 0.4 mg/dL Aspartate Amino Transf (AST/SGOT) 14 U/L Alanine Aminotransferase (ALT/SGPT) 24 U/L Alkaline Phosphatase 63 U/L Total Protein 6.1 g/dL Albumin 2.8 g/dL Albumin/Globulin Ratio 0.8 Valproic Acid (Depakene) Level 32 mcg/mL Valproic Acid Last Dose Date 06/19/20 Valproic Acid Last Dose Time 2100 Glucose (Fingerstick) 139 mg/dL 151 mg/dL 151 mg/dL Test 06/20/20 19:00 Glucose (Fingerstick) 182 mg/dL Current Medications Medications (Trade) Dose Ordered Sig/Alexx Route PRN Reason Start Time Stop Time Status Last Admin Dose Admin Acetaminophen (Tylenol) 650 mg PRN Q6HRS PRN PO MILD PAIN / TEMP > 100.3'F 06/16/20 20:30 Multi-Ingredient Ointment (Analgesic [place]) 1 rocio PRN QID PRN TP MUSCLE PAIN 06/16/20 20:30 Al Hydroxide/Mg Hydroxide (Mylanta Plus Xs) 15 ml PRN AFTMEALHC PRN PO DYSPEPSIA 06/16/20 20:30 Magnesium Hydroxide (Milk Of Magnesia) 2,400 mg PRN QHS PRN PO CONSTIPATION 06/16/20 20:30 Apixaban (Eliquis) 5 mg BID PO 06/16/20 21:00 06/20/20 20:53 Aspirin (Aspirin Enteric Coated) 81 mg DAILY PO 06/17/20 09:00 06/20/20 08:30 Divalproex Sodium (Depakote Sprinkles) 125 mg TID PO 06/16/20 21:30 06/17/20 11:56 DC 06/17/20 08:17 Gabapentin (Neurontin) 100 mg BID PO 06/16/20 21:30 06/20/20 20:53 Acetaminophen/ Hydrocodone Bitart (Lortab 5/325) 1 tab PRN Q4HRS PRN PO MOD-SEV PAIN 06/16/20 21:00 Linagliptin (Tradjenta) 5 mg DAILY PO 06/17/20 09:00 06/20/20 08:28 Melatonin (Melatonin) 3 mg HS PO 06/16/20 21:30 06/20/20 20:53 Metformin HCl (Glucophage) 750 mg BIDWMEALS PO 06/17/20 08:00 06/20/20 17:27 Metoprolol Succinate (Toprol Xl) 25 mg DAILY PO 06/17/20 09:00 06/20/20 16:14 DC 06/20/20 08:29 Nicotine (Nicoderm Cq 14mg Patch) 1 patch DAILY TD 06/17/20 09:00 06/20/20 08:30 Quetiapine Fumarate (SEROquel) 50 mg BID PO 06/16/20 21:30 06/17/20 11:56 DC 06/17/20 08:16 Atorvastatin Calcium (Lipitor) 40 mg QHS PO 06/16/20 21:30 06/20/20 20:53 Cyanocobalamin (Vitamin B-12) 500 mcg DAILY PO 06/17/20 09:00 06/20/20 08:28 Insulin Glargine (Lantus Syringe) 35 unit DAILY SQ 06/17/20 09:00 06/20/20 08:42 Lactobacillus Rhamnosus (Culturelle) 1 cap DAILY PO 06/17/20 09:00 06/20/20 08:30 Multivitamins/ Calcium (Thera-M Plus) 1 tab DAILY PO 06/17/20 09:00 06/20/20 08:29 Pantoprazole Sodium (Protonix) 40 mg DAILY PO 06/17/20 09:00 06/20/20 08:30 Vitamin D (Vitamin D3) 500 unit DAILY PO 06/17/20 09:00 06/20/20 08:30 Insulin Human Lispro (HumaLOG) 0-5 UNITS TIDWMEALS SQ 06/17/20 08:00 06/17/20 12:18 Dextrose (Dextrose 50%-Water Syringe) 12.5 gm PRN Q15MIN PRN IV SEE COMMENTS 06/16/20 21:00 Olanzapine (ZyPREXA ZYDIS) 2.5 mg PRN Q2HRS PRN PO PSYCHOSIS/Agitation 06/16/20 21:15 06/18/20 18:00 DC 06/18/20 08:45 Divalproex Sodium (Depakote Sprinkles) 250 mg TID PO 06/17/20 14:00 06/20/20 18:07 DC 06/20/20 13:04 Quetiapine Fumarate (SEROquel) 150 mg HS PO 06/17/20 21:00 06/20/20 20:53 Quetiapine Fumarate (SEROquel) 25 mg PRN Q4HRS PRN PO AGITATION 06/18/20 10:00 06/20/20 13:04 Trimethoprim/ Sulfamethoxazole (Bactrim Ss) 1 tab BID PO 06/20/20 21:00 06/28/20 21:00 06/20/20 20:55 Metoprolol Succinate (Toprol Xl) 50 mg DAILY PO 06/21/20 09:00 Divalproex Sodium (Depakote Sprinkles) 500 mg 0900,1700 PO 06/21/20 09:00 Current Medications Medications (Trade) Dose Ordered Sig/Alexx Route PRN Reason Start Time Stop Time Status Last Admin Dose Admin Trimethoprim/ Sulfamethoxazole (Bactrim Ss) 1 tab BID PO 06/20/20 21:00 06/28/20 21:00 06/20/20 20:55 I have reviewed the current psychotropics carefully including drug interactions. Risk benefit ratio favors no change other than as noted in my dictated progress note. Diagnosis: Problems: (1) Schizoaffective disorder, bipolar type (2) Impulse control disorder, unspecified (3) Anxiety disorder, unspecified (4) Bipolar disorder, curr episode mixed, severe, with psychotic features CHAVO WANG MD Jun 20, 2020 21:01
[2020-06-21 06:32] VITALS: BP 155/79
[2020-06-21] MEDS: INSULIN LISPRO 300 UNITS/3 ML VIAL. SQ SCH ×3 (08:00→17:00)
[2020-06-21] MEDS: metFORMIN 500 MG TABLET PO SCH ×2 (08:00→17:00)
[2020-06-21] MEDS: ASPIRIN ENTERIC COATED 81 MG TABLET.DR. PO SCH (08:13)
[2020-06-21] MEDS: SMZ/TMP 400/80MG TABLET. PO SCH ×2 (08:14→21:05)
[2020-06-21] MEDS: LACTOBACILLUS RHAMNOSUS GG 1 CAPSULE. PO SCH (08:14)
[2020-06-21] MEDS: DIVALPROEX 125 MG CAP.SPRINK PO SCH ×2 (08:15→17:00)
[2020-06-21] MEDS: GABAPENTIN 100 MG CAPSULE. PO SCH ×2 (08:15→21:00)
[2020-06-21] MEDS: PANTOPRAZOLE 40 MG TABLET. PO SCH (08:15)
[2020-06-21] MEDS: APIXABAN 5 MG TABLET. PO SCH ×2 (08:15→21:04)
[2020-06-21] MEDS: LINAGLIPTIN 5 MG TABLET PO SCH (08:16)
[2020-06-21] MEDS: MULTIVITAMIN with MINERAL TABLET. PO SCH (08:16)
[2020-06-21] MEDS: CYANOCOBALAMIN (VITAMIN B-12) 250 MCG TABLET. PO SCH (08:17)
[2020-06-21] MEDS: CHOLECALCIFEROL (VITAMIN D3) 1,000 UNIT TABLET PO SCH (08:17)
[2020-06-21] MEDS: NICOTINE 14MG PATCH. TD SCH (08:18)
[2020-06-21] MEDS: INSULIN GLARGINE SYRINGE. SQ SCH (08:21)
[2020-06-21] MEDS: METOPROLOL SUCC 24HR ER 50 MG TAB.ER.24H. PO SCH (08:22)
[2020-06-21 15:09] VITALS: BP 146/77
[2020-06-21] MEDS: hydrALAZINE 25 MG TABLET PO PRN (17:44)
--- NOTE | 2020-06-21 20:44 | PDOC ---
Exam Note: Edgar Note: Please also refer to the separate dictated note~for this date of service dictated separately.~Patient seen individually. Discussed the patient with Nursing staff reviewed the chart.~Reviewed interim history and current functioning. Reviewed vital signs,~Labs/ Radiology~and current medications noted below. Continue current treatment with the changes noted in the dictated addendum note Assessment: Vital Signs/I&O: Vital Signs Date Time Temp Pulse Resp B/P (MAP) Pulse Ox O2 Delivery O2 Flow Rate FiO2 06/21/20 17:44 87 146/77 06/21/20 15:09 97.5 18 96 06/21/20 06:32 Room Air I & O 06/20/20 06/20/20 06/21/20 15:00 23:00 07:00 Intake Total 600 ml 450 ml Balance 600 ml 450 ml Labs: Laboratory Tests Test 06/21/20 07:46 06/21/20 11:38 06/21/20 16:54 06/21/20 19:44 Glucose (Fingerstick) 126 mg/dL (70-99) H 154 mg/dL (70-99) H 176 mg/dL (70-99) H 129 mg/dL (70-99) H Current Medications: Meds: Laboratory Tests Test 06/21/20 07:46 06/21/20 11:38 06/21/20 16:54 06/21/20 19:44 Glucose (Fingerstick) 126 mg/dL 154 mg/dL 176 mg/dL 129 mg/dL Current Medications Medications (Trade) Dose Ordered Sig/Alexx Route PRN Reason Start Time Stop Time Status Last Admin Dose Admin Acetaminophen (Tylenol) 650 mg PRN Q6HRS PRN PO MILD PAIN / TEMP > 100.3'F 06/16/20 20:30 Multi-Ingredient Ointment (Analgesic [place]) 1 rocio PRN QID PRN TP MUSCLE PAIN 06/16/20 20:30 Al Hydroxide/Mg Hydroxide (Mylanta Plus Xs) 15 ml PRN AFTMEALHC PRN PO DYSPEPSIA 06/16/20 20:30 Magnesium Hydroxide (Milk Of Magnesia) 2,400 mg PRN QHS PRN PO CONSTIPATION 06/16/20 20:30 Apixaban (Eliquis) 5 mg BID PO 06/16/20 21:00 06/21/20 08:15 Aspirin (Aspirin Enteric Coated) 81 mg DAILY PO 06/17/20 09:00 06/21/20 08:13 Divalproex Sodium (Depakote Sprinkles) 125 mg TID PO 06/16/20 21:30 06/17/20 11:56 DC 06/17/20 08:17 Gabapentin (Neurontin) 100 mg BID PO 06/16/20 21:30 06/21/20 08:15 Acetaminophen/ Hydrocodone Bitart (Lortab 5/325) 1 tab PRN Q4HRS PRN PO MOD-SEV PAIN 06/16/20 21:00 Linagliptin (Tradjenta) 5 mg DAILY PO 06/17/20 09:00 06/21/20 08:16 Melatonin (Melatonin) 3 mg HS PO 06/16/20 21:30 06/20/20 20:53 Metformin HCl (Glucophage) 750 mg BIDWMEALS PO 06/17/20 08:00 06/21/20 17:00 Metoprolol Succinate (Toprol Xl) 25 mg DAILY PO 06/17/20 09:00 06/20/20 16:14 DC 06/20/20 08:29 Nicotine (Nicoderm Cq 14mg Patch) 1 patch DAILY TD 06/17/20 09:00 06/21/20 08:18 Quetiapine Fumarate (SEROquel) 50 mg BID PO 06/16/20 21:30 06/17/20 11:56 DC 06/17/20 08:16 Atorvastatin Calcium (Lipitor) 40 mg QHS PO 06/16/20 21:30 06/20/20 20:53 Cyanocobalamin (Vitamin B-12) 500 mcg DAILY PO 06/17/20 09:00 06/21/20 08:17 Insulin Glargine (Lantus Syringe) 35 unit DAILY SQ 06/17/20 09:00 06/21/20 08:21 Lactobacillus Rhamnosus (Culturelle) 1 cap DAILY PO 06/17/20 09:00 06/21/20 08:14 Multivitamins/ Calcium (Thera-M Plus) 1 tab DAILY PO 06/17/20 09:00 06/21/20 08:16 Pantoprazole Sodium (Protonix) 40 mg DAILY PO 06/17/20 09:00 06/21/20 08:15 Vitamin D (Vitamin D3) 500 unit DAILY PO 06/17/20 09:00 06/21/20 08:17 Insulin Human Lispro (HumaLOG) 0-5 UNITS TIDWMEALS SQ 06/17/20 08:00 06/17/20 12:18 Dextrose (Dextrose 50%-Water Syringe) 12.5 gm PRN Q15MIN PRN IV SEE COMMENTS 06/16/20 21:00 Olanzapine (ZyPREXA ZYDIS) 2.5 mg PRN Q2HRS PRN PO PSYCHOSIS/Agitation 06/16/20 21:15 06/18/20 18:00 DC 06/18/20 08:45 Divalproex Sodium (Depakote Sprinkles) 250 mg TID PO 06/17/20 14:00 06/20/20 18:07 DC 06/20/20 13:04 Quetiapine Fumarate (SEROquel) 150 mg HS PO 06/17/20 21:00 06/21/20 17:15 DC 06/20/20 20:53 Quetiapine Fumarate (SEROquel) 25 mg PRN Q4HRS PRN PO AGITATION 06/18/20 10:00 06/20/20 13:04 Trimethoprim/ Sulfamethoxazole (Bactrim Ss) 1 tab BID PO 06/20/20 21:00 06/28/20 21:00 06/21/20 08:14 Metoprolol Succinate (Toprol Xl) 50 mg DAILY PO 06/21/20 09:00 06/21/20 08:22 Divalproex Sodium (Depakote Sprinkles) 500 mg 0900,1700 PO 06/21/20 09:00 06/21/20 17:00 Risperidone (RisperDAL) 0.5 mg BID PO 06/21/20 21:00 Hydralazine HCl (Apresoline) 25 mg PRN TID PRN PO anxiety 06/21/20 17:30 06/21/20 17:44 Current Medications Medications (Trade) Dose Ordered Sig/Alexx Route PRN Reason Start Time Stop Time Status Last Admin Dose Admin Trimethoprim/ Sulfamethoxazole (Bactrim Ss) 1 tab BID PO 06/20/20 21:00 06/28/20 21:00 06/21/20 08:14 Metoprolol Succinate (Toprol Xl) 50 mg DAILY PO 06/21/20 09:00 06/21/20 08:22 Divalproex Sodium (Depakote Sprinkles) 500 mg 0900,1700 PO 06/21/20 09:00 06/21/20 17:00 Hydralazine HCl (Apresoline) 25 mg PRN TID PRN PO anxiety 06/21/20 17:30 06/21/20 17:44 I have reviewed the current psychotropics carefully including drug interactions. Risk benefit ratio favors no change other than as noted in my dictated progress note. Diagnosis: Problems: (1) Schizoaffective disorder, bipolar type (2) Impulse control disorder, unspecified (3) Anxiety disorder, unspecified (4) Bipolar disorder, curr episode mixed, severe, with psychotic features CHAVO WANG MD Jun 21, 2020 20:44
--- NOTE | 2020-06-21 20:44 | PDOC ---
Exam Note: Edgar Note: This note is a late entry for 06/20/2020 covers elements not covered in my initial note. Subjective: The patient was reviewed on telehealth rounds in the evening of 06/20/2020 with rTeasure MELGAR. Discussed with nursing staff, reviewed the chart. She slept 5-1/4 hours previous night. Previous evening reportedly the patient was arguing with a nursing staff regarding her medications and during the day on 06/20 she was yelling profanities at the nursing staff. She did receive p.r.n. Seroquel at 1300 hours. She does have UTI on antibiotics and hopefully as this resolves, some of her irritability will improve as well. Review of Systems: Ambulation impaired. No CV, , pulmonary, eye, ENT system symptoms on review. Reliability poor. Mental Status Exam: The patient is reasonably oriented. Speech rapid, loud, disruptive, angry, paranoid, threatening staff and myself for admitting her here, threatening legal action, extremely labile in her mood. Attention span is short. Language function is intact. Laboratory Data: Reviewed. Valproic acid level is subtherapeutic at 32 on Depakote Sprinkle 250 mg t.i.d. Impression: Schizoaffective disorder bipolar type, mixed with psychotic features. Anxiety disorder unspecified. Impulse control disorder unspecified. Plan: Increase Depakote to 500 mg b.i.d. at 9 a.m., 5 p.m. Check CBC, CMP, valproic acid level in 3 days with plan to reach therapeutic level. Continue melatonin, Seroquel unchanged, the latter both p.r.n. and scheduled. We may need to change Seroquel to Risperdal if psychotic symptoms persist. I have carefully reviewed drug interactions, risk-benefit ratio. Assessment: Vital Signs/I&O: Vital Signs Date Time Temp Pulse Resp B/P (MAP) Pulse Ox O2 Delivery O2 Flow Rate FiO2 06/21/20 17:44 87 146/77 06/21/20 15:09 97.5 18 96 06/21/20 06:32 Room Air I & O 06/20/20 06/20/20 06/21/20 15:00 23:00 07:00 Intake Total 600 ml 450 ml Balance 600 ml 450 ml Labs: Laboratory Tests Test 06/21/20 07:46 06/21/20 11:38 06/21/20 16:54 06/21/20 19:44 Glucose (Fingerstick) 126 mg/dL (70-99) H 154 mg/dL (70-99) H 176 mg/dL (70-99) H 129 mg/dL (70-99) H Current Medications: Meds: Laboratory Tests Test 06/21/20 07:46 06/21/20 11:38 06/21/20 16:54 06/21/20 19:44 Glucose (Fingerstick) 126 mg/dL 154 mg/dL 176 mg/dL 129 mg/dL Current Medications Medications (Trade) Dose Ordered Sig/Alexx Route PRN Reason Start Time Stop Time Status Last Admin Dose Admin Acetaminophen (Tylenol) 650 mg PRN Q6HRS PRN PO MILD PAIN / TEMP > 100.3'F 06/16/20 20:30 Multi-Ingredient Ointment (Analgesic [place]) 1 rocio PRN QID PRN TP MUSCLE PAIN 06/16/20 20:30 Al Hydroxide/Mg Hydroxide (Mylanta Plus Xs) 15 ml PRN AFTMEALHC PRN PO DYSPEPSIA 06/16/20 20:30 Magnesium Hydroxide (Milk Of Magnesia) 2,400 mg PRN QHS PRN PO CONSTIPATION 06/16/20 20:30 Apixaban (Eliquis) 5 mg BID PO 06/16/20 21:00 06/21/20 08:15 Aspirin (Aspirin Enteric Coated) 81 mg DAILY PO 06/17/20 09:00 06/21/20 08:13 Divalproex Sodium (Depakote Sprinkles) 125 mg TID PO 06/16/20 21:30 06/17/20 11:56 DC 06/17/20 08:17 Gabapentin (Neurontin) 100 mg BID PO 06/16/20 21:30 06/21/20 08:15 Acetaminophen/ Hydrocodone Bitart (Lortab 5/325) 1 tab PRN Q4HRS PRN PO MOD-SEV PAIN 06/16/20 21:00 Linagliptin (Tradjenta) 5 mg DAILY PO 06/17/20 09:00 06/21/20 08:16 Melatonin (Melatonin) 3 mg HS PO 06/16/20 21:30 06/20/20 20:53 Metformin HCl (Glucophage) 750 mg BIDWMEALS PO 06/17/20 08:00 06/21/20 17:00 Metoprolol Succinate (Toprol Xl) 25 mg DAILY PO 06/17/20 09:00 06/20/20 16:14 DC 06/20/20 08:29 Nicotine (Nicoderm Cq 14mg Patch) 1 patch DAILY TD 06/17/20 09:00 06/21/20 08:18 Quetiapine Fumarate (SEROquel) 50 mg BID PO 06/16/20 21:30 06/17/20 11:56 DC 06/17/20 08:16 Atorvastatin Calcium (Lipitor) 40 mg QHS PO 06/16/20 21:30 06/20/20 20:53 Cyanocobalamin (Vitamin B-12) 500 mcg DAILY PO 06/17/20 09:00 06/21/20 08:17 Insulin Glargine (Lantus Syringe) 35 unit DAILY SQ 06/17/20 09:00 06/21/20 08:21 Lactobacillus Rhamnosus (Culturelle) 1 cap DAILY PO 06/17/20 09:00 06/21/20 08:14 Multivitamins/ Calcium (Thera-M Plus) 1 tab DAILY PO 06/17/20 09:00 06/21/20 08:16 Pantoprazole Sodium (Protonix) 40 mg DAILY PO 06/17/20 09:00 06/21/20 08:15 Vitamin D (Vitamin D3) 500 unit DAILY PO 06/17/20 09:00 06/21/20 08:17 Insulin Human Lispro (HumaLOG) 0-5 UNITS TIDWMEALS SQ 06/17/20 08:00 06/17/20 12:18 Dextrose (Dextrose 50%-Water Syringe) 12.5 gm PRN Q15MIN PRN IV SEE COMMENTS 06/16/20 21:00 Olanzapine (ZyPREXA ZYDIS) 2.5 mg PRN Q2HRS PRN PO PSYCHOSIS/Agitation 06/16/20 21:15 06/18/20 18:00 DC 06/18/20 08:45 Divalproex Sodium (Depakote Sprinkles) 250 mg TID PO 06/17/20 14:00 06/20/20 18:07 DC 06/20/20 13:04 Quetiapine Fumarate (SEROquel) 150 mg HS PO 06/17/20 21:00 06/21/20 17:15 DC 06/20/20 20:53 Quetiapine Fumarate (SEROquel) 25 mg PRN Q4HRS PRN PO AGITATION 06/18/20 10:00 06/20/20 13:04 Trimethoprim/ Sulfamethoxazole (Bactrim Ss) 1 tab BID PO 06/20/20 21:00 06/28/20 21:00 06/21/20 08:14 Metoprolol Succinate (Toprol Xl) 50 mg DAILY PO 06/21/20 09:00 06/21/20 08:22 Divalproex Sodium (Depakote Sprinkles) 500 mg 0900,1700 PO 06/21/20 09:00 06/21/20 17:00 Risperidone (RisperDAL) 0.5 mg BID PO 06/21/20 21:00 Hydralazine HCl (Apresoline) 25 mg PRN TID PRN PO anxiety 06/21/20 17:30 06/21/20 17:44 Current Medications Medications (Trade) Dose Ordered Sig/Alexx Route PRN Reason Start Time Stop Time Status Last Admin Dose Admin Trimethoprim/ Sulfamethoxazole (Bactrim Ss) 1 tab BID PO 06/20/20 21:00 06/28/20 21:00 06/21/20 08:14 Metoprolol Succinate (Toprol Xl) 50 mg DAILY PO 06/21/20 09:00 06/21/20 08:22 Divalproex Sodium (Depakote Sprinkles) 500 mg 0900,1700 PO 06/21/20 09:00 06/21/20 17:00 Hydralazine HCl (Apresoline) 25 mg PRN TID PRN PO anxiety 06/21/20 17:30 06/21/20 17:44 I have reviewed the current psychotropics carefully including drug interactions. Risk benefit ratio favors no change other than as noted in my dictated progress note. Diagnosis: Problems: (1) Schizoaffective disorder, bipolar type (2) Impulse control disorder, unspecified (3) Anxiety disorder, unspecified (4) Bipolar disorder, curr episode mixed, severe, with psychotic features CHAVO WANG MD Jun 21, 2020 20:44
[2020-06-21] MEDS: MELATONIN 3 MG TABLET PO SCH (21:00)
[2020-06-21] MEDS: ATORVASTATIN CALCIUM 20 MG TABLET PO SCH (21:01)
[2020-06-21] MEDS: risperiDONE 0.5 MG TABLET. PO SCH (21:04)
[2020-06-22 06:17] VITALS: BP 170/68
[2020-06-22] MEDS: INSULIN LISPRO 300 UNITS/3 ML VIAL. SQ SCH ×3 (08:00→17:00)
--- NOTE | 2020-06-22 08:01 | PDOC ---
Exam Note: Edgar Note: This note is a late entry for 06/21/2020 covers elements not covered in my initial note. Subjective: The patient was reviewed on telehealth rounds in the evening of 06/21/2020 with Sandra MELGAR. Discussed with nursing staff, reviewed the chart. She slept 8-1/2 hours previous night. The patient has been anxious, especially about her leg that has been amputated, wanting something for this and we will add hydroxyzine 25 mg t.i.d. p.r.n. anxiety. She has been aggressive with cares, yelling in the morning, then did better in the afternoon after getting her p.r.n. Review of Systems: Ambulation impaired in wheelchair. No CV, , pulmonary, eye, ENT system symptoms on review. Mental Status Exam: The patient is reasonably oriented. Speech coherent, rapid at times. Abstraction is fair. Computation is impaired. Language function is intact. She is less grandiose. No active suicidal or homicidal ideation. She remains paranoid. Laboratory Data: Reviewed. Impression: Schizoaffective disorder bipolar type, mixed versus bipolar disorder mixed with psychotic features. Anxiety disorder unspecified. Impulse control disorder unspecified. Plan: Given the extent of the patients psychosis, we will change Seroquel 50 mg b.i.d. to Risperdal 0.5 mg b.i.d. Maintain Depakote 500 mg b.i.d. Check valproic acid level. Continue Seroquel p.r.n., melatonin at current dosage. Adjust further as clinically indicated. Assessment: Vital Signs/I&O: Vital Signs Date Time Temp Pulse Resp B/P (MAP) Pulse Ox O2 Delivery O2 Flow Rate FiO2 06/22/20 06:17 97.4 86 18 170/68 (102) 94 Room Air I & O 06/21/20 06/21/20 06/22/20 14:59 22:59 06:59 Intake Total 840 ml 580 ml Balance 840 ml 580 ml Labs: Laboratory Tests Test 06/21/20 11:38 06/21/20 16:54 06/21/20 19:44 Glucose (Fingerstick) 154 mg/dL (70-99) H 176 mg/dL (70-99) H 129 mg/dL (70-99) H Current Medications: Meds: Laboratory Tests Test 06/21/20 11:38 06/21/20 16:54 06/21/20 19:44 Glucose (Fingerstick) 154 mg/dL 176 mg/dL 129 mg/dL Current Medications Medications (Trade) Dose Ordered Sig/Alexx Route PRN Reason Start Time Stop Time Status Last Admin Dose Admin Acetaminophen (Tylenol) 650 mg PRN Q6HRS PRN PO MILD PAIN / TEMP > 100.3'F 06/16/20 20:30 Multi-Ingredient Ointment (Analgesic [place]) 1 rocio PRN QID PRN TP MUSCLE PAIN 06/16/20 20:30 Al Hydroxide/Mg Hydroxide (Mylanta Plus Xs) 15 ml PRN AFTMEALHC PRN PO DYSPEPSIA 06/16/20 20:30 Magnesium Hydroxide (Milk Of Magnesia) 2,400 mg PRN QHS PRN PO CONSTIPATION 06/16/20 20:30 Apixaban (Eliquis) 5 mg BID PO 06/16/20 21:00 06/21/20 21:04 Aspirin (Aspirin Enteric Coated) 81 mg DAILY PO 06/17/20 09:00 06/21/20 08:13 Divalproex Sodium (Depakote Sprinkles) 125 mg TID PO 06/16/20 21:30 06/17/20 11:56 DC 06/17/20 08:17 Gabapentin (Neurontin) 100 mg BID PO 06/16/20 21:30 06/21/20 21:00 Acetaminophen/ Hydrocodone Bitart (Lortab 5/325) 1 tab PRN Q4HRS PRN PO MOD-SEV PAIN 06/16/20 21:00 Linagliptin (Tradjenta) 5 mg DAILY PO 06/17/20 09:00 06/21/20 08:16 Melatonin (Melatonin) 3 mg HS PO 06/16/20 21:30 06/21/20 21:00 Metformin HCl (Glucophage) 750 mg BIDWMEALS PO 06/17/20 08:00 06/21/20 17:00 Metoprolol Succinate (Toprol Xl) 25 mg DAILY PO 06/17/20 09:00 06/20/20 16:14 DC 06/20/20 08:29 Nicotine (Nicoderm Cq 14mg Patch) 1 patch DAILY TD 06/17/20 09:00 06/21/20 08:18 Quetiapine Fumarate (SEROquel) 50 mg BID PO 06/16/20 21:30 06/17/20 11:56 DC 06/17/20 08:16 Atorvastatin Calcium (Lipitor) 40 mg QHS PO 06/16/20 21:30 06/21/20 21:01 Cyanocobalamin (Vitamin B-12) 500 mcg DAILY PO 06/17/20 09:00 06/21/20 08:17 Insulin Glargine (Lantus Syringe) 35 unit DAILY SQ 06/17/20 09:00 06/21/20 08:21 Lactobacillus Rhamnosus (Culturelle) 1 cap DAILY PO 06/17/20 09:00 06/21/20 08:14 Multivitamins/ Calcium (Thera-M Plus) 1 tab DAILY PO 06/17/20 09:00 06/21/20 08:16 Pantoprazole Sodium (Protonix) 40 mg DAILY PO 06/17/20 09:00 06/21/20 08:15 Vitamin D (Vitamin D3) 500 unit DAILY PO 06/17/20 09:00 06/21/20 08:17 Insulin Human Lispro (HumaLOG) 0-5 UNITS TIDWMEALS SQ 06/17/20 08:00 06/17/20 12:18 Dextrose (Dextrose 50%-Water Syringe) 12.5 gm PRN Q15MIN PRN IV SEE COMMENTS 06/16/20 21:00 Olanzapine (ZyPREXA ZYDIS) 2.5 mg PRN Q2HRS PRN PO PSYCHOSIS/Agitation 06/16/20 21:15 06/18/20 18:00 DC 06/18/20 08:45 Divalproex Sodium (Depakote Sprinkles) 250 mg TID PO 06/17/20 14:00 06/20/20 18:07 DC 06/20/20 13:04 Quetiapine Fumarate (SEROquel) 150 mg HS PO 06/17/20 21:00 06/21/20 17:15 DC 06/20/20 20:53 Quetiapine Fumarate (SEROquel) 25 mg PRN Q4HRS PRN PO AGITATION 06/18/20 10:00 06/20/20 13:04 Trimethoprim/ Sulfamethoxazole (Bactrim Ss) 1 tab BID PO 06/20/20 21:00 06/28/20 21:00 06/21/20 21:05 Metoprolol Succinate (Toprol Xl) 50 mg DAILY PO 06/21/20 09:00 06/21/20 08:22 Divalproex Sodium (Depakote Sprinkles) 500 mg 0900,1700 PO 06/21/20 09:00 06/21/20 17:00 Risperidone (RisperDAL) 0.5 mg BID PO 06/21/20 21:00 06/21/20 21:04 Hydralazine HCl (Apresoline) 25 mg PRN TID PRN PO anxiety 06/21/20 17:30 06/21/20 17:44 Current Medications Medications (Trade) Dose Ordered Sig/Alexx Route PRN Reason Start Time Stop Time Status Last Admin Dose Admin Metoprolol Succinate (Toprol Xl) 50 mg DAILY PO 06/21/20 09:00 06/21/20 08:22 Divalproex Sodium (Depakote Sprinkles) 500 mg 0900,1700 PO 06/21/20 09:00 06/21/20 17:00 Risperidone (RisperDAL) 0.5 mg BID PO 06/21/20 21:00 06/21/20 21:04 Hydralazine HCl (Apresoline) 25 mg PRN TID PRN PO anxiety 06/21/20 17:30 06/21/20 17:44 I have reviewed the current psychotropics carefully including drug interactions. Risk benefit ratio favors no change other than as noted in my dictated progress note. Diagnosis: Problems: (1) Schizoaffective disorder, bipolar type (2) Impulse control disorder, unspecified (3) Anxiety disorder, unspecified (4) Bipolar disorder, curr episode mixed, severe, with psychotic features CHAVO WANG MD Jun 22, 2020 08:01
[2020-06-22] MEDS: LINAGLIPTIN 5 MG TABLET PO SCH (08:57)
[2020-06-22] MEDS: risperiDONE 0.5 MG TABLET. PO SCH ×2 (08:57→20:09)
[2020-06-22] MEDS: DIVALPROEX 125 MG CAP.SPRINK PO SCH ×2 (08:57→17:11)
[2020-06-22] MEDS: LACTOBACILLUS RHAMNOSUS GG 1 CAPSULE. PO SCH (08:57)
[2020-06-22] MEDS: CYANOCOBALAMIN (VITAMIN B-12) 250 MCG TABLET. PO SCH (08:57)
[2020-06-22] MEDS: ASPIRIN ENTERIC COATED 81 MG TABLET.DR. PO SCH (08:57)
[2020-06-22] MEDS: APIXABAN 5 MG TABLET. PO SCH ×2 (08:57→20:10)
[2020-06-22] MEDS: CHOLECALCIFEROL (VITAMIN D3) 1,000 UNIT TABLET PO SCH (08:57)
[2020-06-22] MEDS: metFORMIN 500 MG TABLET PO SCH ×2 (08:57→17:11)
[2020-06-22] MEDS: METOPROLOL SUCC 24HR ER 50 MG TAB.ER.24H. PO SCH (08:57)
[2020-06-22] MEDS: MULTIVITAMIN with MINERAL TABLET. PO SCH (08:58)
[2020-06-22] MEDS: SMZ/TMP 400/80MG TABLET. PO SCH ×2 (09:00→20:11)
[2020-06-22] MEDS: GABAPENTIN 100 MG CAPSULE. PO SCH ×2 (09:01→20:10)
[2020-06-22] MEDS: PANTOPRAZOLE 40 MG TABLET. PO SCH (09:01)
[2020-06-22] MEDS: NICOTINE 14MG PATCH. TD SCH (09:02)
[2020-06-22] MEDS: INSULIN GLARGINE SYRINGE. SQ SCH (09:04)
[2020-06-22 16:07] VITALS: BP 147/76
[2020-06-22] MEDS: MELATONIN 3 MG TABLET PO SCH (20:09)
[2020-06-22] MEDS: ATORVASTATIN CALCIUM 20 MG TABLET PO SCH (20:09)
--- NOTE | 2020-06-22 20:58 | PDOC ---
Exam Note: Edgar Note: Please also refer to the separate dictated note~for this date of service dictated separately.~Patient seen individually. Discussed the patient with Nursing staff reviewed the chart.~Reviewed interim history and current functioning. Reviewed vital signs,~Labs/ Radiology~and current medications noted below. Continue current treatment with the changes noted in the dictated addendum note Assessment: Vital Signs/I&O: Vital Signs Date Time Temp Pulse Resp B/P (MAP) Pulse Ox O2 Delivery O2 Flow Rate FiO2 06/22/20 16:07 98.0 86 20 147/76 (99) 97 06/22/20 06:17 Room Air I & O 06/21/20 06/21/20 06/22/20 14:59 22:59 06:59 Intake Total 840 ml 580 ml Balance 840 ml 580 ml Labs: Laboratory Tests Test 06/22/20 07:54 06/22/20 11:54 06/22/20 16:49 Glucose (Fingerstick) 122 mg/dL (70-99) H 194 mg/dL (70-99) H 95 mg/dL (70-99) Current Medications: Meds: Laboratory Tests Test 06/22/20 07:54 06/22/20 11:54 06/22/20 16:49 Glucose (Fingerstick) 122 mg/dL 194 mg/dL 95 mg/dL Current Medications Medications (Trade) Dose Ordered Sig/Alexx Route PRN Reason Start Time Stop Time Status Last Admin Dose Admin Acetaminophen (Tylenol) 650 mg PRN Q6HRS PRN PO MILD PAIN / TEMP > 100.3'F 06/16/20 20:30 Multi-Ingredient Ointment (Analgesic [place]) 1 rocio PRN QID PRN TP MUSCLE PAIN 06/16/20 20:30 Al Hydroxide/Mg Hydroxide (Mylanta Plus Xs) 15 ml PRN AFTMEALHC PRN PO DYSPEPSIA 06/16/20 20:30 Magnesium Hydroxide (Milk Of Magnesia) 2,400 mg PRN QHS PRN PO CONSTIPATION 06/16/20 20:30 Apixaban (Eliquis) 5 mg BID PO 06/16/20 21:00 06/22/20 20:10 Aspirin (Aspirin Enteric Coated) 81 mg DAILY PO 06/17/20 09:00 06/22/20 08:57 Divalproex Sodium (Depakote Sprinkles) 125 mg TID PO 06/16/20 21:30 06/17/20 11:56 DC 06/17/20 08:17 Gabapentin (Neurontin) 100 mg BID PO 06/16/20 21:30 06/22/20 20:10 Acetaminophen/ Hydrocodone Bitart (Lortab 5/325) 1 tab PRN Q4HRS PRN PO MOD-SEV PAIN 06/16/20 21:00 Linagliptin (Tradjenta) 5 mg DAILY PO 06/17/20 09:00 06/22/20 08:57 Melatonin (Melatonin) 3 mg HS PO 06/16/20 21:30 06/22/20 20:09 Metformin HCl (Glucophage) 750 mg BIDWMEALS PO 06/17/20 08:00 06/22/20 17:11 Metoprolol Succinate (Toprol Xl) 25 mg DAILY PO 06/17/20 09:00 06/20/20 16:14 DC 06/20/20 08:29 Nicotine (Nicoderm Cq 14mg Patch) 1 patch DAILY TD 06/17/20 09:00 06/22/20 09:02 Quetiapine Fumarate (SEROquel) 50 mg BID PO 06/16/20 21:30 06/17/20 11:56 DC 06/17/20 08:16 Atorvastatin Calcium (Lipitor) 40 mg QHS PO 06/16/20 21:30 06/22/20 20:09 Cyanocobalamin (Vitamin B-12) 500 mcg DAILY PO 06/17/20 09:00 06/22/20 08:57 Insulin Glargine (Lantus Syringe) 35 unit DAILY SQ 06/17/20 09:00 06/22/20 09:04 Lactobacillus Rhamnosus (Culturelle) 1 cap DAILY PO 06/17/20 09:00 06/22/20 08:57 Multivitamins/ Calcium (Thera-M Plus) 1 tab DAILY PO 06/17/20 09:00 06/22/20 08:58 Pantoprazole Sodium (Protonix) 40 mg DAILY PO 06/17/20 09:00 06/22/20 09:01 Vitamin D (Vitamin D3) 500 unit DAILY PO 06/17/20 09:00 06/22/20 08:57 Insulin Human Lispro (HumaLOG) 0-5 UNITS TIDWMEALS SQ 06/17/20 08:00 06/17/20 12:18 Dextrose (Dextrose 50%-Water Syringe) 12.5 gm PRN Q15MIN PRN IV SEE COMMENTS 06/16/20 21:00 Olanzapine (ZyPREXA ZYDIS) 2.5 mg PRN Q2HRS PRN PO PSYCHOSIS/Agitation 06/16/20 21:15 06/18/20 18:00 DC 06/18/20 08:45 Divalproex Sodium (Depakote Sprinkles) 250 mg TID PO 06/17/20 14:00 06/20/20 18:07 DC 06/20/20 13:04 Quetiapine Fumarate (SEROquel) 150 mg HS PO 06/17/20 21:00 06/21/20 17:15 DC 06/20/20 20:53 Quetiapine Fumarate (SEROquel) 25 mg PRN Q4HRS PRN PO AGITATION 06/18/20 10:00 06/20/20 13:04 Trimethoprim/ Sulfamethoxazole (Bactrim Ss) 1 tab BID PO 06/20/20 21:00 06/28/20 21:00 06/22/20 20:11 Metoprolol Succinate (Toprol Xl) 50 mg DAILY PO 06/21/20 09:00 06/22/20 08:57 Divalproex Sodium (Depakote Sprinkles) 500 mg 0900,1700 PO 06/21/20 09:00 06/22/20 17:11 Risperidone (RisperDAL) 0.5 mg BID PO 06/21/20 21:00 06/22/20 20:09 Hydralazine HCl (Apresoline) 25 mg PRN TID PRN PO anxiety 06/21/20 17:30 06/21/20 17:44 Current Medications Medications (Trade) Dose Ordered Sig/Alexx Route PRN Reason Start Time Stop Time Status Last Admin Dose Admin Risperidone (RisperDAL) 0.5 mg BID PO 06/21/20 21:00 06/22/20 20:09 I have reviewed the current psychotropics carefully including drug interactions. Risk benefit ratio favors no change other than as noted in my dictated progress note. Diagnosis: Problems: (1) Schizoaffective disorder, bipolar type (2) Impulse control disorder, unspecified (3) Anxiety disorder, unspecified (4) Bipolar disorder, curr episode mixed, severe, with psychotic features CHAVO WANG MD Jun 22, 2020 20:58
[2020-06-23 06:07] VITALS: BP 161/71
[2020-06-23] MEDS: INSULIN LISPRO 300 UNITS/3 ML VIAL. SQ SCH ×3 (08:00→17:00)
--- NOTE | 2020-06-23 08:16 | PDOC ---
Exam Note: Edgar Note: This note is a late entry for 06/22/2020 covers elements not covered in my initial note. Subjective: The patient was reviewed on telehealth rounds in the evening of 06/22/2020 with Treasure MELGAR. Discussed with nursing staff, reviewed the chart. She slept 7-1/2 hours previous night. The patient has been agitated, yelling at night, wanting to call 911. She took her medications hesitantly. Today she was yelling in the evening, still demanding. There was no reason for her to be sent here. I processed this with her. Review of Systems: Ambulation impaired in wheelchair and she has leg amputation. No CV, , pulmonary, eye, ENT system symptoms on review. Mental Status Exam: The patient is reasonably oriented. Speech coherent, rapid, loud at times. Abstraction is fair. Computation is impaired. Language function is intact. Attention span is short. Mood and affect remains labile but improved. Laboratory Data: Reviewed. Impression: Schizoaffective disorder bipolar type, mixed versus bipolar disorder mixed with psychotic features. Anxiety disorder unspecified. Impulse control disorder unspecified. Plan: Continue current psychotropics. We will check a valproic acid level on 06/24. Adjust Depakote to reach therapeutic level. Assessment: Vital Signs/I&O: Vital Signs Date Time Temp Pulse Resp B/P (MAP) Pulse Ox O2 Delivery O2 Flow Rate FiO2 06/23/20 06:07 98.2 91 18 161/71 (101) 97 06/22/20 06:17 Room Air I & O 06/22/20 06/22/20 06/23/20 15:00 23:00 07:00 Intake Total 840 ml 340 ml Balance 840 ml 340 ml Labs: Laboratory Tests Test 06/22/20 11:54 06/22/20 16:49 06/23/20 07:26 Glucose (Fingerstick) 194 mg/dL (70-99) H 95 mg/dL (70-99) 137 mg/dL (70-99) H Current Medications: Meds: Laboratory Tests Test 06/22/20 11:54 06/22/20 16:49 06/23/20 07:26 Glucose (Fingerstick) 194 mg/dL 95 mg/dL 137 mg/dL Current Medications Medications (Trade) Dose Ordered Sig/Alexx Route PRN Reason Start Time Stop Time Status Last Admin Dose Admin Acetaminophen (Tylenol) 650 mg PRN Q6HRS PRN PO MILD PAIN / TEMP > 100.3'F 06/16/20 20:30 Multi-Ingredient Ointment (Analgesic [place]) 1 rocio PRN QID PRN TP MUSCLE PAIN 06/16/20 20:30 Al Hydroxide/Mg Hydroxide (Mylanta Plus Xs) 15 ml PRN AFTMEALHC PRN PO DYSPEPSIA 06/16/20 20:30 Magnesium Hydroxide (Milk Of Magnesia) 2,400 mg PRN QHS PRN PO CONSTIPATION 06/16/20 20:30 Apixaban (Eliquis) 5 mg BID PO 06/16/20 21:00 06/22/20 20:10 Aspirin (Aspirin Enteric Coated) 81 mg DAILY PO 06/17/20 09:00 06/22/20 08:57 Divalproex Sodium (Depakote Sprinkles) 125 mg TID PO 06/16/20 21:30 06/17/20 11:56 DC 06/17/20 08:17 Gabapentin (Neurontin) 100 mg BID PO 06/16/20 21:30 06/22/20 20:10 Acetaminophen/ Hydrocodone Bitart (Lortab 5/325) 1 tab PRN Q4HRS PRN PO MOD-SEV PAIN 06/16/20 21:00 Linagliptin (Tradjenta) 5 mg DAILY PO 06/17/20 09:00 06/22/20 08:57 Melatonin (Melatonin) 3 mg HS PO 06/16/20 21:30 06/22/20 20:09 Metformin HCl (Glucophage) 750 mg BIDWMEALS PO 06/17/20 08:00 06/22/20 17:11 Metoprolol Succinate (Toprol Xl) 25 mg DAILY PO 06/17/20 09:00 06/20/20 16:14 DC 06/20/20 08:29 Nicotine (Nicoderm Cq 14mg Patch) 1 patch DAILY TD 06/17/20 09:00 06/22/20 09:02 Quetiapine Fumarate (SEROquel) 50 mg BID PO 06/16/20 21:30 06/17/20 11:56 DC 06/17/20 08:16 Atorvastatin Calcium (Lipitor) 40 mg QHS PO 06/16/20 21:30 06/22/20 20:09 Cyanocobalamin (Vitamin B-12) 500 mcg DAILY PO 06/17/20 09:00 06/22/20 08:57 Insulin Glargine (Lantus Syringe) 35 unit DAILY SQ 06/17/20 09:00 06/22/20 09:04 Lactobacillus Rhamnosus (Culturelle) 1 cap DAILY PO 06/17/20 09:00 06/22/20 08:57 Multivitamins/ Calcium (Thera-M Plus) 1 tab DAILY PO 06/17/20 09:00 06/22/20 08:58 Pantoprazole Sodium (Protonix) 40 mg DAILY PO 06/17/20 09:00 06/22/20 09:01 Vitamin D (Vitamin D3) 500 unit DAILY PO 06/17/20 09:00 06/22/20 08:57 Insulin Human Lispro (HumaLOG) 0-5 UNITS TIDWMEALS SQ 06/17/20 08:00 06/17/20 12:18 Dextrose (Dextrose 50%-Water Syringe) 12.5 gm PRN Q15MIN PRN IV SEE COMMENTS 06/16/20 21:00 Olanzapine (ZyPREXA ZYDIS) 2.5 mg PRN Q2HRS PRN PO PSYCHOSIS/Agitation 06/16/20 21:15 06/18/20 18:00 DC 06/18/20 08:45 Divalproex Sodium (Depakote Sprinkles) 250 mg TID PO 06/17/20 14:00 06/20/20 18:07 DC 06/20/20 13:04 Quetiapine Fumarate (SEROquel) 150 mg HS PO 06/17/20 21:00 06/21/20 17:15 DC 06/20/20 20:53 Quetiapine Fumarate (SEROquel) 25 mg PRN Q4HRS PRN PO AGITATION 06/18/20 10:00 06/20/20 13:04 Trimethoprim/ Sulfamethoxazole (Bactrim Ss) 1 tab BID PO 06/20/20 21:00 06/28/20 21:00 06/22/20 20:11 Metoprolol Succinate (Toprol Xl) 50 mg DAILY PO 06/21/20 09:00 06/22/20 08:57 Divalproex Sodium (Depakote Sprinkles) 500 mg 0900,1700 PO 06/21/20 09:00 06/22/20 17:11 Risperidone (RisperDAL) 0.5 mg BID PO 06/21/20 21:00 06/22/20 20:09 Hydralazine HCl (Apresoline) 25 mg PRN TID PRN PO anxiety 06/21/20 17:30 06/21/20 17:44 I have reviewed the current psychotropics carefully including drug interactions. Risk benefit ratio favors no change other than as noted in my dictated progress note. Diagnosis: Problems: (1) Schizoaffective disorder, bipolar type (2) Impulse control disorder, unspecified (3) Anxiety disorder, unspecified (4) Bipolar disorder, curr episode mixed, severe, with psychotic features CHAVO WANG MD Jun 23, 2020 08:16
[2020-06-23] MEDS: metFORMIN 500 MG TABLET PO SCH ×2 (08:41→17:34)
[2020-06-23] MEDS: CHOLECALCIFEROL (VITAMIN D3) 1,000 UNIT TABLET PO SCH (08:41)
[2020-06-23] MEDS: DIVALPROEX 125 MG CAP.SPRINK PO SCH ×2 (08:41→17:33)
[2020-06-23] MEDS: ASPIRIN ENTERIC COATED 81 MG TABLET.DR. PO SCH (08:41)
[2020-06-23] MEDS: LINAGLIPTIN 5 MG TABLET PO SCH (08:41)
[2020-06-23] MEDS: MULTIVITAMIN with MINERAL TABLET. PO SCH (08:42)
[2020-06-23] MEDS: NICOTINE 14MG PATCH. TD SCH (08:42)
[2020-06-23] MEDS: GABAPENTIN 100 MG CAPSULE. PO SCH ×2 (08:42→21:18)
[2020-06-23] MEDS: APIXABAN 5 MG TABLET. PO SCH ×2 (08:42→21:18)
[2020-06-23] MEDS: risperiDONE 0.5 MG TABLET. PO SCH ×2 (08:42→21:18)
[2020-06-23] MEDS: CYANOCOBALAMIN (VITAMIN B-12) 250 MCG TABLET. PO SCH (08:42)
[2020-06-23] MEDS: METOPROLOL SUCC 24HR ER 50 MG TAB.ER.24H. PO SCH (08:42)
[2020-06-23] MEDS: PANTOPRAZOLE 40 MG TABLET. PO SCH (08:42)
[2020-06-23] MEDS: LACTOBACILLUS RHAMNOSUS GG 1 CAPSULE. PO SCH (08:42)
[2020-06-23] MEDS: INSULIN GLARGINE SYRINGE. SQ SCH (08:45)
[2020-06-23] MEDS: SMZ/TMP 400/80MG TABLET. PO SCH ×2 (08:47→21:00)
[2020-06-23] MEDS: QUEtiapine 25 MG TABLET. PO PRN ×2 (10:38→14:55)
[2020-06-23] MEDS: hydrALAZINE 25 MG TABLET PO PRN (10:38)
[2020-06-23 16:29] VITALS: BP 117/74
--- NOTE | 2020-06-23 21:06 | PDOC ---
Exam Note: Edgar Note: Please also refer to the separate dictated note~for this date of service dictated separately.~Patient seen individually. Discussed the patient with Nursing staff reviewed the chart.~Reviewed interim history and current functioning. Reviewed vital signs,~Labs/ Radiology~and current medications noted below. Continue current treatment with the changes noted in the dictated addendum note Assessment: Vital Signs/I&O: Vital Signs Date Time Temp Pulse Resp B/P (MAP) Pulse Ox O2 Delivery O2 Flow Rate FiO2 06/23/20 16:29 97.2 95 20 117/74 (88) 97 Room Air I & O 06/22/20 06/22/20 06/23/20 15:00 23:00 07:00 Intake Total 840 ml 340 ml Balance 840 ml 340 ml Labs: Laboratory Tests Test 06/23/20 07:26 06/23/20 11:42 06/23/20 16:49 06/23/20 19:53 Glucose (Fingerstick) 137 mg/dL (70-99) H 176 mg/dL (70-99) H 185 mg/dL (70-99) H 155 mg/dL (70-99) H Current Medications: Meds: Laboratory Tests Test 06/23/20 07:26 06/23/20 11:42 06/23/20 16:49 06/23/20 19:53 Glucose (Fingerstick) 137 mg/dL 176 mg/dL 185 mg/dL 155 mg/dL Current Medications Medications (Trade) Dose Ordered Sig/Alexx Route PRN Reason Start Time Stop Time Status Last Admin Dose Admin Acetaminophen (Tylenol) 650 mg PRN Q6HRS PRN PO MILD PAIN / TEMP > 100.3'F 06/16/20 20:30 Multi-Ingredient Ointment (Analgesic [place]) 1 rocio PRN QID PRN TP MUSCLE PAIN 06/16/20 20:30 Al Hydroxide/Mg Hydroxide (Mylanta Plus Xs) 15 ml PRN AFTMEALHC PRN PO DYSPEPSIA 06/16/20 20:30 Magnesium Hydroxide (Milk Of Magnesia) 2,400 mg PRN QHS PRN PO CONSTIPATION 06/16/20 20:30 Apixaban (Eliquis) 5 mg BID PO 06/16/20 21:00 06/23/20 08:42 Aspirin (Aspirin Enteric Coated) 81 mg DAILY PO 06/17/20 09:00 06/23/20 08:41 Divalproex Sodium (Depakote Sprinkles) 125 mg TID PO 06/16/20 21:30 06/17/20 11:56 DC 06/17/20 08:17 Gabapentin (Neurontin) 100 mg BID PO 06/16/20 21:30 06/23/20 08:42 Acetaminophen/ Hydrocodone Bitart (Lortab 5/325) 1 tab PRN Q4HRS PRN PO MOD-SEV PAIN 06/16/20 21:00 Linagliptin (Tradjenta) 5 mg DAILY PO 06/17/20 09:00 06/23/20 08:41 Melatonin (Melatonin) 3 mg HS PO 06/16/20 21:30 06/22/20 20:09 Metformin HCl (Glucophage) 750 mg BIDWMEALS PO 06/17/20 08:00 06/23/20 17:34 Metoprolol Succinate (Toprol Xl) 25 mg DAILY PO 06/17/20 09:00 06/20/20 16:14 DC 06/20/20 08:29 Nicotine (Nicoderm Cq 14mg Patch) 1 patch DAILY TD 06/17/20 09:00 06/23/20 08:42 Quetiapine Fumarate (SEROquel) 50 mg BID PO 06/16/20 21:30 06/17/20 11:56 DC 06/17/20 08:16 Atorvastatin Calcium (Lipitor) 40 mg QHS PO 06/16/20 21:30 06/22/20 20:09 Cyanocobalamin (Vitamin B-12) 500 mcg DAILY PO 06/17/20 09:00 06/23/20 08:42 Insulin Glargine (Lantus Syringe) 35 unit DAILY SQ 06/17/20 09:00 06/23/20 08:45 Lactobacillus Rhamnosus (Culturelle) 1 cap DAILY PO 06/17/20 09:00 06/23/20 08:42 Multivitamins/ Calcium (Thera-M Plus) 1 tab DAILY PO 06/17/20 09:00 06/23/20 08:42 Pantoprazole Sodium (Protonix) 40 mg DAILY PO 06/17/20 09:00 06/23/20 08:42 Vitamin D (Vitamin D3) 500 unit DAILY PO 06/17/20 09:00 06/23/20 08:41 Insulin Human Lispro (HumaLOG) 0-5 UNITS TIDWMEALS SQ 06/17/20 08:00 06/17/20 12:18 Dextrose (Dextrose 50%-Water Syringe) 12.5 gm PRN Q15MIN PRN IV SEE COMMENTS 06/16/20 21:00 Olanzapine (ZyPREXA ZYDIS) 2.5 mg PRN Q2HRS PRN PO PSYCHOSIS/Agitation 06/16/20 21:15 06/18/20 18:00 DC 06/18/20 08:45 Divalproex Sodium (Depakote Sprinkles) 250 mg TID PO 06/17/20 14:00 06/20/20 18:07 DC 06/20/20 13:04 Quetiapine Fumarate (SEROquel) 150 mg HS PO 06/17/20 21:00 06/21/20 17:15 DC 06/20/20 20:53 Quetiapine Fumarate (SEROquel) 25 mg PRN Q4HRS PRN PO AGITATION 06/18/20 10:00 06/23/20 14:55 Trimethoprim/ Sulfamethoxazole (Bactrim Ss) 1 tab BID PO 06/20/20 21:00 06/28/20 21:00 06/23/20 08:47 Metoprolol Succinate (Toprol Xl) 50 mg DAILY PO 06/21/20 09:00 06/23/20 08:42 Divalproex Sodium (Depakote Sprinkles) 500 mg 0900,1700 PO 06/21/20 09:00 06/23/20 17:33 Risperidone (RisperDAL) 0.5 mg BID PO 06/21/20 21:00 06/23/20 08:42 Hydralazine HCl (Apresoline) 25 mg PRN TID PRN PO anxiety 06/21/20 17:30 06/23/20 10:38 I have reviewed the current psychotropics carefully including drug interactions. Risk benefit ratio favors no change other than as noted in my dictated progress note. Diagnosis: Problems: (1) Schizoaffective disorder, bipolar type (2) Impulse control disorder, unspecified (3) Anxiety disorder, unspecified (4) Bipolar disorder, curr episode mixed, severe, with psychotic features CHAVO WANG MD Jun 23, 2020 21:06
[2020-06-23] MEDS: MELATONIN 3 MG TABLET PO SCH (21:18)
[2020-06-23] MEDS: ATORVASTATIN CALCIUM 20 MG TABLET PO SCH (21:18)
[2020-06-24 05:57] VITALS: BP 134/80
[2020-06-24 07:23] LABS: BASO % 1 % (0-3); EOS # 0.1 x10^3/uL (0.0-0.7); EOS % 2 % (0-3); HEMOGLOBIN 11.4 g/dL (12.0-15.5); LYMPH # 2.1 x10^3/uL (1.0-4.8); LYMPH % 23 % (24-48); MEAN CORPUSCULAR HEMOGLOBIN 28 pg (25-35); MEAN CORPUSCULAR HGB CONC 32 g/dL (31-37); MEAN CORPUSCULAR VOLUME 88 fL (79-100); MONO # 0.7 x10^3/uL (0.0-1.1); MONO % 8 % (0-9); NEUT # 6.2 x10^3uL (1.8-7.7); NEUT % 67 % (31-73); PLATELET COUNT 271 x10^3/uL (140-400); RED CELL DISTRIBUTION WIDTH 15.9 % (11.5-14.5); WHITE BLOOD COUNT 9.3 x10^3/uL (4.0-11.0)
--- NOTE | 2020-06-24 07:37 | PDOC ---
Exam Note: Edgar Note: This note is a late entry for 06/23/2020 covers elements not covered in my initial note. Subjective: The patient was reviewed on telehealth rounds in the evening of 06/23/2020 with Treasure MELGAR. Discussed with nursing staff, reviewed the chart. She slept 4-1/2 hours previous night. The patient has irritable, putting herself on the floor, rolled on the floor, hollering, agitated, paranoid, wanting to call 911. [facility] and is on contact precaution since she has ESBL E. coli in her urine. She received p.r.n. x2. I met with her on telehealth rounds in the evening. She is paranoid, talking that she has not been arrested because she did not even get her citations and her environmental attorney told her this. Review of Systems: Ambulation impaired. No CV, , pulmonary, eye, ENT system symptoms on review. Mental Status Exam: The patient is reasonably oriented. Speech coherent, pressured at times. Abstraction is fair. Computation is impaired. Language function is intact. Mood and affect withdrawn. Laboratory Data: Reviewed. Impression: Schizoaffective disorder bipolar type, mixed versus bipolar disorder mixed with psychotic features. Anxiety disorder unspecified. Impulse control disorder unspecified. Plan: No change from initial note. We will make further adjustments in psychotropics as clinically indicated. We will check CBC, CMP, valproic acid level in the morning. Assessment: Vital Signs/I&O: Vital Signs Date Time Temp Pulse Resp B/P (MAP) Pulse Ox O2 Delivery O2 Flow Rate FiO2 06/24/20 05:57 98.1 90 18 134/80 (98) 95 06/23/20 16:29 Room Air I & O 06/23/20 06/23/20 06/24/20 14:59 22:59 06:59 Intake Total 600 ml 340 ml Balance 600 ml 340 ml Labs: Laboratory Tests Test 06/23/20 11:42 06/23/20 16:49 06/23/20 19:53 06/24/20 07:11 Glucose (Fingerstick) 176 mg/dL (70-99) H 185 mg/dL (70-99) H 155 mg/dL (70-99) H 130 mg/dL (70-99) H Current Medications: Meds: Laboratory Tests Test 06/23/20 11:42 06/23/20 16:49 06/23/20 19:53 06/24/20 07:11 Glucose (Fingerstick) 176 mg/dL 185 mg/dL 155 mg/dL 130 mg/dL Current Medications Medications (Trade) Dose Ordered Sig/Alexx Route PRN Reason Start Time Stop Time Status Last Admin Dose Admin Acetaminophen (Tylenol) 650 mg PRN Q6HRS PRN PO MILD PAIN / TEMP > 100.3'F 06/16/20 20:30 Multi-Ingredient Ointment (Analgesic [place]) 1 rocio PRN QID PRN TP MUSCLE PAIN 06/16/20 20:30 Al Hydroxide/Mg Hydroxide (Mylanta Plus Xs) 15 ml PRN AFTMEALHC PRN PO DYSPEPSIA 06/16/20 20:30 Magnesium Hydroxide (Milk Of Magnesia) 2,400 mg PRN QHS PRN PO CONSTIPATION 06/16/20 20:30 Apixaban (Eliquis) 5 mg BID PO 06/16/20 21:00 06/23/20 21:18 Aspirin (Aspirin Enteric Coated) 81 mg DAILY PO 06/17/20 09:00 06/23/20 08:41 Divalproex Sodium (Depakote Sprinkles) 125 mg TID PO 06/16/20 21:30 06/17/20 11:56 DC 06/17/20 08:17 Gabapentin (Neurontin) 100 mg BID PO 06/16/20 21:30 06/23/20 21:18 Acetaminophen/ Hydrocodone Bitart (Lortab 5/325) 1 tab PRN Q4HRS PRN PO MOD-SEV PAIN 06/16/20 21:00 Linagliptin (Tradjenta) 5 mg DAILY PO 06/17/20 09:00 06/23/20 08:41 Melatonin (Melatonin) 3 mg HS PO 06/16/20 21:30 06/23/20 21:18 Metformin HCl (Glucophage) 750 mg BIDWMEALS PO 06/17/20 08:00 06/23/20 17:34 Metoprolol Succinate (Toprol Xl) 25 mg DAILY PO 06/17/20 09:00 06/20/20 16:14 DC 06/20/20 08:29 Nicotine (Nicoderm Cq 14mg Patch) 1 patch DAILY TD 06/17/20 09:00 06/23/20 08:42 Quetiapine Fumarate (SEROquel) 50 mg BID PO 06/16/20 21:30 06/17/20 11:56 DC 06/17/20 08:16 Atorvastatin Calcium (Lipitor) 40 mg QHS PO 06/16/20 21:30 06/23/20 21:18 Cyanocobalamin (Vitamin B-12) 500 mcg DAILY PO 06/17/20 09:00 06/23/20 08:42 Insulin Glargine (Lantus Syringe) 35 unit DAILY SQ 06/17/20 09:00 06/23/20 08:45 Lactobacillus Rhamnosus (Culturelle) 1 cap DAILY PO 06/17/20 09:00 06/23/20 08:42 Multivitamins/ Calcium (Thera-M Plus) 1 tab DAILY PO 06/17/20 09:00 06/23/20 08:42 Pantoprazole Sodium (Protonix) 40 mg DAILY PO 06/17/20 09:00 06/23/20 08:42 Vitamin D (Vitamin D3) 500 unit DAILY PO 06/17/20 09:00 06/23/20 08:41 Insulin Human Lispro (HumaLOG) 0-5 UNITS TIDWMEALS SQ 06/17/20 08:00 06/17/20 12:18 Dextrose (Dextrose 50%-Water Syringe) 12.5 gm PRN Q15MIN PRN IV SEE COMMENTS 06/16/20 21:00 Olanzapine (ZyPREXA ZYDIS) 2.5 mg PRN Q2HRS PRN PO PSYCHOSIS/Agitation 06/16/20 21:15 06/18/20 18:00 DC 06/18/20 08:45 Divalproex Sodium (Depakote Sprinkles) 250 mg TID PO 06/17/20 14:00 06/20/20 18:07 DC 06/20/20 13:04 Quetiapine Fumarate (SEROquel) 150 mg HS PO 06/17/20 21:00 06/21/20 17:15 DC 06/20/20 20:53 Quetiapine Fumarate (SEROquel) 25 mg PRN Q4HRS PRN PO AGITATION 06/18/20 10:00 06/23/20 14:55 Trimethoprim/ Sulfamethoxazole (Bactrim Ss) 1 tab BID PO 06/20/20 21:00 06/28/20 21:00 06/23/20 21:00 Metoprolol Succinate (Toprol Xl) 50 mg DAILY PO 06/21/20 09:00 06/23/20 08:42 Divalproex Sodium (Depakote Sprinkles) 500 mg 0900,1700 PO 06/21/20 09:00 06/23/20 17:33 Risperidone (RisperDAL) 0.5 mg BID PO 06/21/20 21:00 06/23/20 21:18 Hydralazine HCl (Apresoline) 25 mg PRN TID PRN PO anxiety 06/21/20 17:30 06/23/20 10:38 I have reviewed the current psychotropics carefully including drug interactions. Risk benefit ratio favors no change other than as noted in my dictated progress note. Diagnosis: Problems: (1) Schizoaffective disorder, bipolar type (2) Impulse control disorder, unspecified (3) Anxiety disorder, unspecified (4) Bipolar disorder, curr episode mixed, severe, with psychotic features CHAVO WANG MD Jun 24, 2020 07:37
[2020-06-24] MEDS: INSULIN LISPRO 300 UNITS/3 ML VIAL. SQ SCH ×3 (07:49→17:00)
[2020-06-24] MEDS: ASPIRIN ENTERIC COATED 81 MG TABLET.DR. PO SCH (08:42)
[2020-06-24] MEDS: MULTIVITAMIN with MINERAL TABLET. PO SCH (08:42)
[2020-06-24] MEDS: metFORMIN 500 MG TABLET PO SCH ×2 (08:42→17:21)
[2020-06-24] MEDS: METOPROLOL SUCC 24HR ER 50 MG TAB.ER.24H. PO SCH (08:42)
[2020-06-24] MEDS: APIXABAN 5 MG TABLET. PO SCH ×2 (08:42→21:00)
[2020-06-24] MEDS: risperiDONE 0.5 MG TABLET. PO SCH ×2 (08:42→19:23)
[2020-06-24] MEDS: CYANOCOBALAMIN (VITAMIN B-12) 250 MCG TABLET. PO SCH (08:42)
[2020-06-24] MEDS: DIVALPROEX 125 MG CAP.SPRINK PO SCH ×2 (08:43→21:00)
[2020-06-24] MEDS: GABAPENTIN 100 MG CAPSULE. PO SCH ×2 (08:43→19:22)
[2020-06-24] MEDS: CHOLECALCIFEROL (VITAMIN D3) 1,000 UNIT TABLET PO SCH (08:43)
[2020-06-24] MEDS: LACTOBACILLUS RHAMNOSUS GG 1 CAPSULE. PO SCH (08:43)
[2020-06-24] MEDS: LINAGLIPTIN 5 MG TABLET PO SCH (08:43)
[2020-06-24] MEDS: PANTOPRAZOLE 40 MG TABLET. PO SCH (08:43)
[2020-06-24] MEDS: NICOTINE 14MG PATCH. TD SCH (08:43)
[2020-06-24] MEDS: INSULIN GLARGINE SYRINGE. SQ SCH (08:45)
[2020-06-24] MEDS: SMZ/TMP 400/80MG TABLET. PO SCH ×2 (08:45→21:00)
[2020-06-24 09:12] LABS: ALBUMIN/GLOBULIN RATIO 0.9 (1.0-1.7); ALK PHOS 67 U/L (46-116); ALT (SGPT) 32 U/L (14-59); ANION GAP 10 (6-14); AST (SGOT) 18 U/L (15-37); BLOOD UREA NITROGEN 18 mg/dL (7-20); BUN/CREATININE RATIO 15 (6-20); CALCIUM 8.8 mg/dL (8.5-10.1); CARBON DIOXIDE 25 mmol/L (21-32); CHLORIDE 105 mmol/L (98-107); CREATININE 1.2 mg/dL (0.6-1.0); GFR 44.5; GLUCOSE 134 mg/dL (70-99); POTASSIUM 3.9 mmol/L (3.5-5.1); SODIUM 140 mmol/L (136-145); TOTAL BILIRUBIN 0.3 mg/dL (0.2-1.0); TOTAL PROTEIN 6.5 g/dL (6.4-8.2)
[2020-06-24 09:28] LABS: VAL ACID 51 mcg/mL (50-100)
[2020-06-24 16:08] VITALS: BP 110/73
[2020-06-24] MEDS: ATORVASTATIN CALCIUM 20 MG TABLET PO SCH (19:22)
[2020-06-24] MEDS: MELATONIN 3 MG TABLET PO SCH (19:22)
--- NOTE | 2020-06-24 20:50 | PDOC ---
Exam Note: Edgar Note: Please also refer to the separate dictated note~for this date of service dictated separately.~Patient seen individually. Discussed the patient with Nursing staff reviewed the chart.~Reviewed interim history and current functioning. Reviewed vital signs,~Labs/ Radiology~and current medications noted below. Continue current treatment with the changes noted in the dictated addendum note Assessment: Vital Signs/I&O: Vital Signs Date Time Temp Pulse Resp B/P (MAP) Pulse Ox O2 Delivery O2 Flow Rate FiO2 06/24/20 16:08 97.8 95 18 110/73 (85) 98 06/23/20 16:29 Room Air I & O 06/23/20 06/23/20 06/24/20 15:00 23:00 07:00 Intake Total 600 ml 340 ml Balance 600 ml 340 ml Labs: Laboratory Tests Test 06/24/20 07:00 06/24/20 07:11 06/24/20 11:31 06/24/20 16:28 White Blood Count 9.3 x10^3/uL (4.0-11.0) Red Blood Count 4.10 x10^6/uL (3.50-5.40) Hemoglobin 11.4 g/dL (12.0-15.5) L Hematocrit 36.0 % (36.0-47.0) Mean Corpuscular Volume 88 fL (79-100) Mean Corpuscular Hemoglobin 28 pg (25-35) Mean Corpuscular Hemoglobin Concent 32 g/dL (31-37) Red Cell Distribution Width 15.9 % (11.5-14.5) H Platelet Count 271 x10^3/uL (140-400) Neutrophils (%) (Auto) 67 % (31-73) Lymphocytes (%) (Auto) 23 % (24-48) L Monocytes (%) (Auto) 8 % (0-9) Eosinophils (%) (Auto) 2 % (0-3) Basophils (%) (Auto) 1 % (0-3) Neutrophils # (Auto) 6.2 x10^3uL (1.8-7.7) Lymphocytes # (Auto) 2.1 x10^3/uL (1.0-4.8) Monocytes # (Auto) 0.7 x10^3/uL (0.0-1.1) Eosinophils # (Auto) 0.1 x10^3/uL (0.0-0.7) Basophils # (Auto) 0.0 x10^3/uL (0.0-0.2) Sodium Level 140 mmol/L (136-145) Potassium Level 3.9 mmol/L (3.5-5.1) Chloride Level 105 mmol/L (98-107) Carbon Dioxide Level 25 mmol/L (21-32) Anion Gap 10 (6-14) Blood Urea Nitrogen 18 mg/dL (7-20) Creatinine 1.2 mg/dL (0.6-1.0) H Estimated GFR (Cockcroft-Gault) 44.5 BUN/Creatinine Ratio 15 (6-20) Glucose Level 134 mg/dL (70-99) H Calcium Level 8.8 mg/dL (8.5-10.1) Total Bilirubin 0.3 mg/dL (0.2-1.0) Aspartate Amino Transferase (AST) 18 U/L (15-37) Alanine Aminotransferase (ALT) 32 U/L (14-59) Alkaline Phosphatase 67 U/L (46-116) Total Protein 6.5 g/dL (6.4-8.2) Albumin 3.0 g/dL (3.4-5.0) L Albumin/Globulin Ratio 0.9 (1.0-1.7) L Valproic Acid Level 51 mcg/mL (50-100) Valproic Acid Last Dose Date 06/23/2020 Valproic Acid Last Dose Time 1700 Glucose (Fingerstick) 130 mg/dL (70-99) H 118 mg/dL (70-99) H 140 mg/dL (70-99) H Test 06/24/20 19:32 Glucose (Fingerstick) 117 mg/dL (70-99) H Current Medications: Meds: Laboratory Tests Test 06/24/20 07:00 06/24/20 07:11 06/24/20 11:31 06/24/20 16:28 White Blood Count 9.3 x10^3/uL Red Blood Count 4.10 x10^6/uL Hemoglobin 11.4 g/dL Hematocrit 36.0 % Mean Corpuscular Volume 88 fL Mean Corpuscular Hemoglobin 28 pg Mean Corpuscular Hemoglobin Concent 32 g/dL Red Cell Distribution Width 15.9 % Platelet Count 271 x10^3/uL Neutrophils (%) (Auto) 67 % Lymphocytes (%) (Auto) 23 % Monocytes (%) (Auto) 8 % Eosinophils (%) (Auto) 2 % Basophils (%) (Auto) 1 % Neutrophils # (Auto) 6.2 x10^3uL Lymphocytes # (Auto) 2.1 x10^3/uL Monocytes # (Auto) 0.7 x10^3/uL Eosinophils # (Auto) 0.1 x10^3/uL Basophils # (Auto) 0.0 x10^3/uL Sodium Level 140 mmol/L Potassium Level 3.9 mmol/L Chloride Level 105 mmol/L Carbon Dioxide Level 25 mmol/L Anion Gap 10 Blood Urea Nitrogen 18 mg/dL Creatinine 1.2 mg/dL Estimated GFR (Cockcroft-Gault) 44.5 BUN/Creatinine Ratio 15 Glucose Level 134 mg/dL Calcium Level 8.8 mg/dL Total Bilirubin 0.3 mg/dL Aspartate Amino Transf (AST/SGOT) 18 U/L Alanine Aminotransferase (ALT/SGPT) 32 U/L Alkaline Phosphatase 67 U/L Total Protein 6.5 g/dL Albumin 3.0 g/dL Albumin/Globulin Ratio 0.9 Valproic Acid (Depakene) Level 51 mcg/mL Valproic Acid Last Dose Date 06/23/2020 Valproic Acid Last Dose Time 1700 Glucose (Fingerstick) 130 mg/dL 118 mg/dL 140 mg/dL Test 06/24/20 19:32 Glucose (Fingerstick) 117 mg/dL Current Medications Medications (Trade) Dose Ordered Sig/Alexx Route PRN Reason Start Time Stop Time Status Last Admin Dose Admin Acetaminophen (Tylenol) 650 mg PRN Q6HRS PRN PO MILD PAIN / TEMP > 100.3'F 06/16/20 20:30 Multi-Ingredient Ointment (Analgesic [place]) 1 rocio PRN QID PRN TP MUSCLE PAIN 06/16/20 20:30 Al Hydroxide/Mg Hydroxide (Mylanta Plus Xs) 15 ml PRN AFTMEALHC PRN PO DYSPEPSIA 06/16/20 20:30 Magnesium Hydroxide (Milk Of Magnesia) 2,400 mg PRN QHS PRN PO CONSTIPATION 06/16/20 20:30 Apixaban (Eliquis) 5 mg BID PO 06/16/20 21:00 06/24/20 08:42 Aspirin (Aspirin Enteric Coated) 81 mg DAILY PO 06/17/20 09:00 06/24/20 08:42 Divalproex Sodium (Depakote Sprinkles) 125 mg TID PO 06/16/20 21:30 06/17/20 11:56 DC 06/17/20 08:17 Gabapentin (Neurontin) 100 mg BID PO 06/16/20 21:30 06/24/20 19:22 Acetaminophen/ Hydrocodone Bitart (Lortab 5/325) 1 tab PRN Q4HRS PRN PO MOD-SEV PAIN 06/16/20 21:00 Linagliptin (Tradjenta) 5 mg DAILY PO 06/17/20 09:00 06/24/20 08:43 Melatonin (Melatonin) 3 mg HS PO 06/16/20 21:30 06/24/20 19:22 Metformin HCl (Glucophage) 750 mg BIDWMEALS PO 06/17/20 08:00 06/24/20 17:21 Metoprolol Succinate (Toprol Xl) 25 mg DAILY PO 06/17/20 09:00 06/20/20 16:14 DC 06/20/20 08:29 Nicotine (Nicoderm Cq 14mg Patch) 1 patch DAILY TD 06/17/20 09:00 06/24/20 08:43 Quetiapine Fumarate (SEROquel) 50 mg BID PO 06/16/20 21:30 06/17/20 11:56 DC 06/17/20 08:16 Atorvastatin Calcium (Lipitor) 40 mg QHS PO 06/16/20 21:30 06/24/20 19:22 Cyanocobalamin (Vitamin B-12) 500 mcg DAILY PO 06/17/20 09:00 06/24/20 08:42 Insulin Glargine (Lantus Syringe) 35 unit DAILY SQ 06/17/20 09:00 06/24/20 08:45 Lactobacillus Rhamnosus (Culturelle) 1 cap DAILY PO 06/17/20 09:00 06/24/20 08:43 Multivitamins/ Calcium (Thera-M Plus) 1 tab DAILY PO 06/17/20 09:00 06/24/20 08:42 Pantoprazole Sodium (Protonix) 40 mg DAILY PO 06/17/20 09:00 06/24/20 08:43 Vitamin D (Vitamin D3) 500 unit DAILY PO 06/17/20 09:00 06/24/20 08:43 Insulin Human Lispro (HumaLOG) 0-5 UNITS TIDWMEALS SQ 06/17/20 08:00 06/17/20 12:18 Dextrose (Dextrose 50%-Water Syringe) 12.5 gm PRN Q15MIN PRN IV SEE COMMENTS 06/16/20 21:00 Olanzapine (ZyPREXA ZYDIS) 2.5 mg PRN Q2HRS PRN PO PSYCHOSIS/Agitation 06/16/20 21:15 06/18/20 18:00 DC 06/18/20 08:45 Divalproex Sodium (Depakote Sprinkles) 250 mg TID PO 06/17/20 14:00 06/20/20 18:07 DC 06/20/20 13:04 Quetiapine Fumarate (SEROquel) 150 mg HS PO 06/17/20 21:00 06/21/20 17:15 DC 06/20/20 20:53 Quetiapine Fumarate (SEROquel) 25 mg PRN Q4HRS PRN PO AGITATION 06/18/20 10:00 06/23/20 14:55 Trimethoprim/ Sulfamethoxazole (Bactrim Ss) 1 tab BID PO 06/20/20 21:00 06/28/20 21:00 06/24/20 08:45 Metoprolol Succinate (Toprol Xl) 50 mg DAILY PO 06/21/20 09:00 06/24/20 08:42 Divalproex Sodium (Depakote Sprinkles) 500 mg 0900,1700 PO 06/21/20 09:00 06/24/20 17:10 DC 06/24/20 08:43 Risperidone (RisperDAL) 0.5 mg BID PO 06/21/20 21:00 06/24/20 19:23 Hydralazine HCl (Apresoline) 25 mg PRN TID PRN PO anxiety 06/21/20 17:30 06/23/20 10:38 Divalproex Sodium (Depakote Sprinkles) 500 mg 0900 PO 06/25/20 09:00 Divalproex Sodium (Depakote Sprinkles) 750 mg HS PO 06/24/20 21:00 I have reviewed the current psychotropics carefully including drug interactions. Risk benefit ratio favors no change other than as noted in my dictated progress note. Diagnosis: Problems: (1) Schizoaffective disorder, bipolar type (2) Impulse control disorder, unspecified (3) Anxiety disorder, unspecified (4) Bipolar disorder, curr episode mixed, severe, with psychotic features CHAVO WANG MD Jun 24, 2020 20:50
[2020-06-25 06:39] VITALS: BP 138/85
--- NOTE | 2020-06-25 07:37 | PDOC ---
Exam Note: Edgar Note: This note is a late entry for 06/24/2020 covers elements not covered in my initial note. Subjective: The patient was reviewed on telehealth rounds in the evening of 06/24/2020 with Tomi MELGAR. Discussed with nursing staff, reviewed the chart. She slept 8 hours previous night. Overall the patient has done better. She remains in the [facility] hallway to reduce her sensory stimuli and this seems to have been very helpful to her agitation. She has been in the wheelchair at times during the day, yelling, upset. Valproic acid level is 51 on Depakote 500 mg b.i.d. We will increase it to 500 mg a.m. and 750 mg h.s. Check CBC, CMP, valproic acid level in 3 days. Review of Systems: Impaired ambulation. No CV, , pulmonary, eye, ENT system symptoms on review. Mental Status Exam: The patient is reasonably oriented. Speech coherent, little pressured. Abstraction is fair. Computation is impaired. Language function is intact. Attention span is short. Mood and affect less anxious, labile though earlier in the day it was quite labile. Laboratory Data: Reviewed. Impression: Schizoaffective disorder bipolar type, mixed versus bipolar disorder mixed with psychotic features. Anxiety disorder unspecified. Impulse control disorder unspecified. Plan: Increase the Depakote as above. Continue rest of the psychotropics unchanged. Adjust as clinically indicated. Assessment: Vital Signs/I&O: Vital Signs Date Time Temp Pulse Resp B/P (MAP) Pulse Ox O2 Delivery O2 Flow Rate FiO2 06/25/20 06:39 97.1 85 18 138/85 (102) 97 06/23/20 16:29 Room Air I & O 06/24/20 06/24/20 06/25/20 14:59 22:59 06:59 Intake Total 480 ml 600 ml Balance 480 ml 600 ml Labs: Laboratory Tests Test 06/24/20 11:31 06/24/20 16:28 06/24/20 19:32 Glucose (Fingerstick) 118 mg/dL (70-99) H 140 mg/dL (70-99) H 117 mg/dL (70-99) H Current Medications: Meds: Laboratory Tests Test 06/24/20 11:31 06/24/20 16:28 06/24/20 19:32 Glucose (Fingerstick) 118 mg/dL 140 mg/dL 117 mg/dL Current Medications Medications (Trade) Dose Ordered Sig/Alexx Route PRN Reason Start Time Stop Time Status Last Admin Dose Admin Acetaminophen (Tylenol) 650 mg PRN Q6HRS PRN PO MILD PAIN / TEMP > 100.3'F 06/16/20 20:30 Multi-Ingredient Ointment (Analgesic [place]) 1 rocio PRN QID PRN TP MUSCLE PAIN 06/16/20 20:30 Al Hydroxide/Mg Hydroxide (Mylanta Plus Xs) 15 ml PRN AFTMEALHC PRN PO DYSPEPSIA 06/16/20 20:30 Magnesium Hydroxide (Milk Of Magnesia) 2,400 mg PRN QHS PRN PO CONSTIPATION 06/16/20 20:30 Apixaban (Eliquis) 5 mg BID PO 06/16/20 21:00 06/24/20 21:00 Aspirin (Aspirin Enteric Coated) 81 mg DAILY PO 06/17/20 09:00 06/24/20 08:42 Divalproex Sodium (Depakote Sprinkles) 125 mg TID PO 06/16/20 21:30 06/17/20 11:56 DC 06/17/20 08:17 Gabapentin (Neurontin) 100 mg BID PO 06/16/20 21:30 06/24/20 19:22 Acetaminophen/ Hydrocodone Bitart (Lortab 5/325) 1 tab PRN Q4HRS PRN PO MOD-SEV PAIN 06/16/20 21:00 Linagliptin (Tradjenta) 5 mg DAILY PO 06/17/20 09:00 06/24/20 08:43 Melatonin (Melatonin) 3 mg HS PO 06/16/20 21:30 06/24/20 19:22 Metformin HCl (Glucophage) 750 mg BIDWMEALS PO 06/17/20 08:00 06/24/20 17:21 Metoprolol Succinate (Toprol Xl) 25 mg DAILY PO 06/17/20 09:00 06/20/20 16:14 DC 06/20/20 08:29 Nicotine (Nicoderm Cq 14mg Patch) 1 patch DAILY TD 06/17/20 09:00 06/24/20 08:43 Quetiapine Fumarate (SEROquel) 50 mg BID PO 06/16/20 21:30 06/17/20 11:56 DC 06/17/20 08:16 Atorvastatin Calcium (Lipitor) 40 mg QHS PO 06/16/20 21:30 06/24/20 19:22 Cyanocobalamin (Vitamin B-12) 500 mcg DAILY PO 06/17/20 09:00 06/24/20 08:42 Insulin Glargine (Lantus Syringe) 35 unit DAILY SQ 06/17/20 09:00 06/24/20 08:45 Lactobacillus Rhamnosus (Culturelle) 1 cap DAILY PO 06/17/20 09:00 06/24/20 08:43 Multivitamins/ Calcium (Thera-M Plus) 1 tab DAILY PO 06/17/20 09:00 06/24/20 08:42 Pantoprazole Sodium (Protonix) 40 mg DAILY PO 06/17/20 09:00 06/24/20 08:43 Vitamin D (Vitamin D3) 500 unit DAILY PO 06/17/20 09:00 06/24/20 08:43 Insulin Human Lispro (HumaLOG) 0-5 UNITS TIDWMEALS SQ 06/17/20 08:00 06/17/20 12:18 Dextrose (Dextrose 50%-Water Syringe) 12.5 gm PRN Q15MIN PRN IV SEE COMMENTS 06/16/20 21:00 Olanzapine (ZyPREXA ZYDIS) 2.5 mg PRN Q2HRS PRN PO PSYCHOSIS/Agitation 06/16/20 21:15 06/18/20 18:00 DC 06/18/20 08:45 Divalproex Sodium (Depakote Sprinkles) 250 mg TID PO 06/17/20 14:00 06/20/20 18:07 DC 06/20/20 13:04 Quetiapine Fumarate (SEROquel) 150 mg HS PO 06/17/20 21:00 06/21/20 17:15 DC 06/20/20 20:53 Quetiapine Fumarate (SEROquel) 25 mg PRN Q4HRS PRN PO AGITATION 06/18/20 10:00 06/23/20 14:55 Trimethoprim/ Sulfamethoxazole (Bactrim Ss) 1 tab BID PO 06/20/20 21:00 06/28/20 21:00 06/24/20 21:00 Metoprolol Succinate (Toprol Xl) 50 mg DAILY PO 06/21/20 09:00 06/24/20 08:42 Divalproex Sodium (Depakote Sprinkles) 500 mg 0900,1700 PO 06/21/20 09:00 06/24/20 17:10 DC 06/24/20 08:43 Risperidone (RisperDAL) 0.5 mg BID PO 06/21/20 21:00 06/24/20 19:23 Hydralazine HCl (Apresoline) 25 mg PRN TID PRN PO anxiety 06/21/20 17:30 06/23/20 10:38 Divalproex Sodium (Depakote Sprinkles) 500 mg 0900 PO 06/25/20 09:00 Divalproex Sodium (Depakote Sprinkles) 750 mg HS PO 06/24/20 21:00 06/24/20 21:00 Current Medications Medications (Trade) Dose Ordered Sig/Alexx Route PRN Reason Start Time Stop Time Status Last Admin Dose Admin Divalproex Sodium (Depakote Sprinkles) 750 mg HS PO 06/24/20 21:00 06/24/20 21:00 I have reviewed the current psychotropics carefully including drug interactions. Risk benefit ratio favors no change other than as noted in my dictated progress note. Diagnosis: Problems: (1) Schizoaffective disorder, bipolar type (2) Impulse control disorder, unspecified (3) Anxiety disorder, unspecified (4) Bipolar disorder, curr episode mixed, severe, with psychotic features CHAVO WANG MD Jun 25, 2020 07:37
[2020-06-25] MEDS: INSULIN LISPRO 300 UNITS/3 ML VIAL. SQ SCH ×3 (08:00→17:00)
[2020-06-25] MEDS: metFORMIN 500 MG TABLET PO SCH ×2 (08:22→17:04)
[2020-06-25] MEDS: DIVALPROEX 125 MG CAP.SPRINK PO SCH ×2 (08:22→19:33)
[2020-06-25] MEDS: PANTOPRAZOLE 40 MG TABLET. PO SCH (08:23)
[2020-06-25] MEDS: risperiDONE 0.5 MG TABLET. PO SCH ×2 (08:23→19:35)
[2020-06-25] MEDS: LACTOBACILLUS RHAMNOSUS GG 1 CAPSULE. PO SCH (08:23)
[2020-06-25] MEDS: MULTIVITAMIN with MINERAL TABLET. PO SCH (08:23)
[2020-06-25] MEDS: METOPROLOL SUCC 24HR ER 50 MG TAB.ER.24H. PO SCH (08:23)
[2020-06-25] MEDS: LINAGLIPTIN 5 MG TABLET PO SCH (08:23)
[2020-06-25] MEDS: APIXABAN 5 MG TABLET. PO SCH ×2 (08:23→19:33)
[2020-06-25] MEDS: ASPIRIN ENTERIC COATED 81 MG TABLET.DR. PO SCH (08:23)
[2020-06-25] MEDS: GABAPENTIN 100 MG CAPSULE. PO SCH ×2 (08:23→19:35)
[2020-06-25] MEDS: SMZ/TMP 400/80MG TABLET. PO SCH ×2 (08:23→19:35)
[2020-06-25] MEDS: CYANOCOBALAMIN (VITAMIN B-12) 250 MCG TABLET. PO SCH (08:24)
[2020-06-25] MEDS: CHOLECALCIFEROL (VITAMIN D3) 1,000 UNIT TABLET PO SCH (08:24)
[2020-06-25] MEDS: NICOTINE 14MG PATCH. TD SCH (08:24)
[2020-06-25] MEDS: INSULIN GLARGINE SYRINGE. SQ SCH (08:25)
[2020-06-25 15:44] VITALS: BP 131/83
[2020-06-25] MEDS: ACETAMINOPHEN 325 MG TABLET PO PRN (18:24)
[2020-06-25] MEDS: MELATONIN 3 MG TABLET PO SCH (19:33)
[2020-06-25] MEDS: ATORVASTATIN CALCIUM 20 MG TABLET PO SCH (19:33)
--- NOTE | 2020-06-25 20:49 | PDOC ---
Exam Note: Edgar Note: Please also refer to the separate dictated note~for this date of service dictated separately.~Patient seen individually. Discussed the patient with Nursing staff reviewed the chart.~Reviewed interim history and current functioning. Reviewed vital signs,~Labs/ Radiology~and current medications noted below. Continue current treatment with the changes noted in the dictated addendum note Assessment: Vital Signs/I&O: Vital Signs Date Time Temp Pulse Resp B/P (MAP) Pulse Ox O2 Delivery O2 Flow Rate FiO2 06/25/20 15:44 97.7 89 18 131/83 (99) 96 06/23/20 16:29 Room Air I & O 06/24/20 06/24/20 06/25/20 15:00 23:00 07:00 Intake Total 480 ml 600 ml Balance 480 ml 600 ml Labs: Laboratory Tests Test 06/25/20 12:07 06/25/20 17:01 06/25/20 19:37 Glucose (Fingerstick) 156 mg/dL (70-99) H 252 mg/dL (70-99) H 229 mg/dL (70-99) H Current Medications: Meds: Laboratory Tests Test 06/25/20 12:07 06/25/20 17:01 06/25/20 19:37 Glucose (Fingerstick) 156 mg/dL 252 mg/dL 229 mg/dL Current Medications Medications (Trade) Dose Ordered Sig/Alexx Route PRN Reason Start Time Stop Time Status Last Admin Dose Admin Acetaminophen (Tylenol) 650 mg PRN Q6HRS PRN PO MILD PAIN / TEMP > 100.3'F 06/16/20 20:30 06/25/20 18:24 Multi-Ingredient Ointment (Analgesic [place]) 1 rocio PRN QID PRN TP MUSCLE PAIN 06/16/20 20:30 Al Hydroxide/Mg Hydroxide (Mylanta Plus Xs) 15 ml PRN AFTMEALHC PRN PO DYSPEPSIA 06/16/20 20:30 Magnesium Hydroxide (Milk Of Magnesia) 2,400 mg PRN QHS PRN PO CONSTIPATION 06/16/20 20:30 Apixaban (Eliquis) 5 mg BID PO 06/16/20 21:00 06/25/20 19:33 Aspirin (Aspirin Enteric Coated) 81 mg DAILY PO 06/17/20 09:00 06/25/20 08:23 Divalproex Sodium (Depakote Sprinkles) 125 mg TID PO 06/16/20 21:30 06/17/20 11:56 DC 06/17/20 08:17 Gabapentin (Neurontin) 100 mg BID PO 06/16/20 21:30 06/25/20 19:35 Acetaminophen/ Hydrocodone Bitart (Lortab 5/325) 1 tab PRN Q4HRS PRN PO MOD-SEV PAIN 06/16/20 21:00 Linagliptin (Tradjenta) 5 mg DAILY PO 06/17/20 09:00 06/25/20 08:23 Melatonin (Melatonin) 3 mg HS PO 06/16/20 21:30 06/25/20 19:33 Metformin HCl (Glucophage) 750 mg BIDWMEALS PO 06/17/20 08:00 06/25/20 17:04 Metoprolol Succinate (Toprol Xl) 25 mg DAILY PO 06/17/20 09:00 06/20/20 16:14 DC 06/20/20 08:29 Nicotine (Nicoderm Cq 14mg Patch) 1 patch DAILY TD 06/17/20 09:00 06/25/20 08:24 Quetiapine Fumarate (SEROquel) 50 mg BID PO 06/16/20 21:30 06/17/20 11:56 DC 06/17/20 08:16 Atorvastatin Calcium (Lipitor) 40 mg QHS PO 06/16/20 21:30 06/25/20 19:33 Cyanocobalamin (Vitamin B-12) 500 mcg DAILY PO 06/17/20 09:00 06/25/20 08:24 Insulin Glargine (Lantus Syringe) 35 unit DAILY SQ 06/17/20 09:00 06/25/20 08:25 Lactobacillus Rhamnosus (Culturelle) 1 cap DAILY PO 06/17/20 09:00 06/25/20 08:23 Multivitamins/ Calcium (Thera-M Plus) 1 tab DAILY PO 06/17/20 09:00 06/25/20 08:23 Pantoprazole Sodium (Protonix) 40 mg DAILY PO 06/17/20 09:00 06/25/20 08:23 Vitamin D (Vitamin D3) 500 unit DAILY PO 06/17/20 09:00 06/25/20 08:24 Insulin Human Lispro (HumaLOG) 0-5 UNITS TIDWMEALS SQ 06/17/20 08:00 06/17/20 12:18 Dextrose (Dextrose 50%-Water Syringe) 12.5 gm PRN Q15MIN PRN IV SEE COMMENTS 06/16/20 21:00 Olanzapine (ZyPREXA ZYDIS) 2.5 mg PRN Q2HRS PRN PO PSYCHOSIS/Agitation 06/16/20 21:15 06/18/20 18:00 DC 06/18/20 08:45 Divalproex Sodium (Depakote Sprinkles) 250 mg TID PO 06/17/20 14:00 06/20/20 18:07 DC 06/20/20 13:04 Quetiapine Fumarate (SEROquel) 150 mg HS PO 06/17/20 21:00 06/21/20 17:15 DC 06/20/20 20:53 Quetiapine Fumarate (SEROquel) 25 mg PRN Q4HRS PRN PO AGITATION 06/18/20 10:00 06/23/20 14:55 Trimethoprim/ Sulfamethoxazole (Bactrim Ss) 1 tab BID PO 06/20/20 21:00 06/28/20 21:00 06/25/20 19:35 Metoprolol Succinate (Toprol Xl) 50 mg DAILY PO 06/21/20 09:00 06/25/20 08:23 Divalproex Sodium (Depakote Sprinkles) 500 mg 0900,1700 PO 06/21/20 09:00 06/24/20 17:10 DC 06/24/20 08:43 Risperidone (RisperDAL) 0.5 mg BID PO 06/21/20 21:00 06/25/20 19:35 Hydralazine HCl (Apresoline) 25 mg PRN TID PRN PO anxiety 06/21/20 17:30 06/23/20 10:38 Divalproex Sodium (Depakote Sprinkles) 500 mg 0900 PO 06/25/20 09:00 06/25/20 08:22 Divalproex Sodium (Depakote Sprinkles) 750 mg HS PO 06/24/20 21:00 06/25/20 19:33 Current Medications Medications (Trade) Dose Ordered Sig/Alexx Route PRN Reason Start Time Stop Time Status Last Admin Dose Admin Divalproex Sodium (Depakote Sprinkles) 500 mg 0900 PO 06/25/20 09:00 06/25/20 08:22 Divalproex Sodium (Depakote Sprinkles) 750 mg HS PO 06/24/20 21:00 06/25/20 19:33 I have reviewed the current psychotropics carefully including drug interactions. Risk benefit ratio favors no change other than as noted in my dictated progress note. Diagnosis: Problems: (1) Schizoaffective disorder, bipolar type (2) Impulse control disorder, unspecified (3) Anxiety disorder, unspecified (4) Bipolar disorder, curr episode mixed, severe, with psychotic features CHAVO WANG MD Jun 25, 2020 20:49
[2020-06-26 06:06] VITALS: BP 141/74
[2020-06-26] MEDS: INSULIN LISPRO 300 UNITS/3 ML VIAL. SQ SCH ×3 (08:00→17:00)
[2020-06-26] MEDS: APIXABAN 5 MG TABLET. PO SCH ×2 (08:18→20:21)
[2020-06-26] MEDS: metFORMIN 500 MG TABLET PO SCH ×2 (08:18→17:28)
[2020-06-26] MEDS: MULTIVITAMIN with MINERAL TABLET. PO SCH (08:18)
[2020-06-26] MEDS: CHOLECALCIFEROL (VITAMIN D3) 1,000 UNIT TABLET PO SCH (08:18)
[2020-06-26] MEDS: LINAGLIPTIN 5 MG TABLET PO SCH (08:18)
[2020-06-26] MEDS: GABAPENTIN 100 MG CAPSULE. PO SCH ×2 (08:18→20:21)
[2020-06-26] MEDS: METOPROLOL SUCC 24HR ER 50 MG TAB.ER.24H. PO SCH (08:19)
[2020-06-26] MEDS: ASPIRIN ENTERIC COATED 81 MG TABLET.DR. PO SCH (08:19)
[2020-06-26] MEDS: risperiDONE 0.5 MG TABLET. PO SCH ×2 (08:19→20:20)
[2020-06-26] MEDS: LACTOBACILLUS RHAMNOSUS GG 1 CAPSULE. PO SCH (08:19)
[2020-06-26] MEDS: PANTOPRAZOLE 40 MG TABLET. PO SCH (08:19)
[2020-06-26] MEDS: DIVALPROEX 125 MG CAP.SPRINK PO SCH ×2 (08:19→20:20)
[2020-06-26] MEDS: CYANOCOBALAMIN (VITAMIN B-12) 250 MCG TABLET. PO SCH (08:20)
[2020-06-26] MEDS: NICOTINE 14MG PATCH. TD SCH (08:20)
--- NOTE | 2020-06-26 08:21 | PDOC ---
Exam Note: Edgar Note: This note is a late entry for 06/25/2020 covers elements not covered in my initial note. Subjective: The patient was reviewed on telehealth rounds in the evening of 06/25/2020 with Tomi MELGAR. Discussed with nursing staff, reviewed the chart. She slept 4 hours previous night. The patient has had a good day. She has been in a wheelchair, is back in her room rather than the West hallway. 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 Review of Systems: Impaired ambulation. No CV, , pulmonary, eye, ENT system symptoms on review. Mental Status Exam: The patient is awake, alert and oriented. She is pleasant, interactive. Speech coherent, less pressured, verbal, smiling. Abstraction is fair. Computation is impaired. Language function is intact. Attention span is short. Mood and affect showing improvement, less paranoid. Laboratory Data: Reviewed. Impression: Schizoaffective disorder bipolar type, mixed versus bipolar disorder mixed with psychotic features. Anxiety disorder unspecified. Impulse control disorder unspecified. Plan: Continue current psychotropics. Valproic acid level is therapeutic. We have still increased the Depakote. Repeat level on 06/27. Continue rest of the psychotropics unchanged including Risperdal 0.5 mg b.i.d. and Seroquel p.r.n. Assessment: Vital Signs/I&O: Vital Signs Date Time Temp Pulse Resp B/P (MAP) Pulse Ox O2 Delivery O2 Flow Rate FiO2 06/26/20 06:06 97.7 87 20 141/74 (96) 97 Room Air I & O 06/25/20 06/25/20 06/26/20 15:00 23:00 07:00 Intake Total 580 ml 480 ml Balance 580 ml 480 ml Labs: Laboratory Tests Test 06/25/20 12:07 06/25/20 17:01 06/25/20 19:37 06/26/20 07:29 Glucose (Fingerstick) 156 mg/dL (70-99) H 252 mg/dL (70-99) H 229 mg/dL (70-99) H 145 mg/dL (70-99) H Current Medications: Meds: Laboratory Tests Test 06/25/20 12:07 06/25/20 17:01 06/25/20 19:37 06/26/20 07:29 Glucose (Fingerstick) 156 mg/dL 252 mg/dL 229 mg/dL 145 mg/dL Current Medications Medications (Trade) Dose Ordered Sig/Alexx Route PRN Reason Start Time Stop Time Status Last Admin Dose Admin Acetaminophen (Tylenol) 650 mg PRN Q6HRS PRN PO MILD PAIN / TEMP > 100.3'F 06/16/20 20:30 06/25/20 18:24 Multi-Ingredient Ointment (Analgesic [place]) 1 rocio PRN QID PRN TP MUSCLE PAIN 06/16/20 20:30 Al Hydroxide/Mg Hydroxide (Mylanta Plus Xs) 15 ml PRN AFTMEALHC PRN PO DYSPEPSIA 06/16/20 20:30 Magnesium Hydroxide (Milk Of Magnesia) 2,400 mg PRN QHS PRN PO CONSTIPATION 06/16/20 20:30 Apixaban (Eliquis) 5 mg BID PO 06/16/20 21:00 06/25/20 19:33 Aspirin (Aspirin Enteric Coated) 81 mg DAILY PO 06/17/20 09:00 06/25/20 08:23 Divalproex Sodium (Depakote Sprinkles) 125 mg TID PO 06/16/20 21:30 06/17/20 11:56 DC 06/17/20 08:17 Gabapentin (Neurontin) 100 mg BID PO 06/16/20 21:30 06/25/20 19:35 Acetaminophen/ Hydrocodone Bitart (Lortab 5/325) 1 tab PRN Q4HRS PRN PO MOD-SEV PAIN 06/16/20 21:00 Linagliptin (Tradjenta) 5 mg DAILY PO 06/17/20 09:00 06/25/20 08:23 Melatonin (Melatonin) 3 mg HS PO 06/16/20 21:30 06/25/20 19:33 Metformin HCl (Glucophage) 750 mg BIDWMEALS PO 06/17/20 08:00 06/25/20 17:04 Metoprolol Succinate (Toprol Xl) 25 mg DAILY PO 06/17/20 09:00 06/20/20 16:14 DC 06/20/20 08:29 Nicotine (Nicoderm Cq 14mg Patch) 1 patch DAILY TD 06/17/20 09:00 06/25/20 08:24 Quetiapine Fumarate (SEROquel) 50 mg BID PO 06/16/20 21:30 06/17/20 11:56 DC 06/17/20 08:16 Atorvastatin Calcium (Lipitor) 40 mg QHS PO 06/16/20 21:30 06/25/20 19:33 Cyanocobalamin (Vitamin B-12) 500 mcg DAILY PO 06/17/20 09:00 06/25/20 08:24 Insulin Glargine (Lantus Syringe) 35 unit DAILY SQ 06/17/20 09:00 06/25/20 08:25 Lactobacillus Rhamnosus (Culturelle) 1 cap DAILY PO 06/17/20 09:00 06/25/20 08:23 Multivitamins/ Calcium (Thera-M Plus) 1 tab DAILY PO 06/17/20 09:00 06/25/20 08:23 Pantoprazole Sodium (Protonix) 40 mg DAILY PO 06/17/20 09:00 06/25/20 08:23 Vitamin D (Vitamin D3) 500 unit DAILY PO 06/17/20 09:00 06/25/20 08:24 Insulin Human Lispro (HumaLOG) 0-5 UNITS TIDWMEALS SQ 06/17/20 08:00 06/17/20 12:18 Dextrose (Dextrose 50%-Water Syringe) 12.5 gm PRN Q15MIN PRN IV SEE COMMENTS 06/16/20 21:00 Olanzapine (ZyPREXA ZYDIS) 2.5 mg PRN Q2HRS PRN PO PSYCHOSIS/Agitation 06/16/20 21:15 06/18/20 18:00 DC 06/18/20 08:45 Divalproex Sodium (Depakote Sprinkles) 250 mg TID PO 06/17/20 14:00 06/20/20 18:07 DC 06/20/20 13:04 Quetiapine Fumarate (SEROquel) 150 mg HS PO 06/17/20 21:00 06/21/20 17:15 DC 06/20/20 20:53 Quetiapine Fumarate (SEROquel) 25 mg PRN Q4HRS PRN PO AGITATION 06/18/20 10:00 06/23/20 14:55 Trimethoprim/ Sulfamethoxazole (Bactrim Ss) 1 tab BID PO 06/20/20 21:00 06/28/20 21:00 06/25/20 19:35 Metoprolol Succinate (Toprol Xl) 50 mg DAILY PO 06/21/20 09:00 06/25/20 08:23 Divalproex Sodium (Depakote Sprinkles) 500 mg 0900,1700 PO 06/21/20 09:00 06/24/20 17:10 DC 06/24/20 08:43 Risperidone (RisperDAL) 0.5 mg BID PO 06/21/20 21:00 06/25/20 19:35 Hydralazine HCl (Apresoline) 25 mg PRN TID PRN PO anxiety 06/21/20 17:30 06/23/20 10:38 Divalproex Sodium (Depakote Sprinkles) 500 mg 0900 PO 06/25/20 09:00 06/25/20 08:22 Divalproex Sodium (Depakote Sprinkles) 750 mg HS PO 06/24/20 21:00 06/25/20 19:33 Current Medications Medications (Trade) Dose Ordered Sig/Alexx Route PRN Reason Start Time Stop Time Status Last Admin Dose Admin Divalproex Sodium (Depakote Sprinkles) 500 mg 0900 PO 06/25/20 09:00 06/25/20 08:22 I have reviewed the current psychotropics carefully including drug interactions. Risk benefit ratio favors no change other than as noted in my dictated progress note. Diagnosis: Problems: (1) Schizoaffective disorder, bipolar type (2) Impulse control disorder, unspecified (3) Anxiety disorder, unspecified (4) Bipolar disorder, curr episode mixed, severe, with psychotic features CHAVO WANG MD Jun 26, 2020 08:21
[2020-06-26] MEDS: SMZ/TMP 400/80MG TABLET. PO SCH ×2 (08:23→20:22)
[2020-06-26] MEDS: INSULIN GLARGINE SYRINGE. SQ SCH (08:35)
[2020-06-26 16:28] VITALS: BP 139/65
--- NOTE | 2020-06-26 17:21 | TX PLAN ---
Interdisciplinary Tx Plan Admission Information Jun 16, 2020 at 19:54 Legal Status (on Admission): Voluntary DPOA/Guardian Name: Jerman Carrera Contact Other Contact Name: Lucy Murry Other Contact Verified Code Status: Full Code Allergies: Coded Allergies: I S O L A T I O N *CONTACT* (Verified Allergy, Unknown, 06/21/20) ESBL amoxicillin (Verified Allergy, Unknown, 06/16/20) clavulanic acid (Verified Allergy, Unknown, 06/16/20) doxycycline (Verified Allergy, Unknown, 06/16/20) Diagnoses Primary Diagnosis: Schizoaffective Bipolar type exacerbation Reasons for Admission: Aggressive, Agitated, Combative, Poor impulse control Problem in Patient's Words: When she is bored,she creates trouble. Her behaviors have also increased and concerned that her medications are not stable. Additional Admission Comments: According to the intake, pt is manic,yelling out "help me", angry/agitated, aggressive towards staff and peers, invading others' space, intimidating, restless Problems Active Problems: Medication resistive Yelling out Agitated Aggressive Restless Inactive Problems: N/A Pt Strengths/Limitations Ability for [place]: Poor Cognitive Functioning/Ability: Poor Communication Skills/Ability: Fair Financial Resources: Fair Insight/Judgement: Poor Intellectual Ability: Fair Physical Health: Poor Social Skills: Poor Stability in Family: Good Stability in School/Work: Poor Verbal Skills: Fair Discharge Criteria Discharge Criteria: No need for close observ., Adequate arrangements @DC, Improved behavior, Improved mood/thought Preliminary Discharge Plan Preliminary DC Plan: Current Living Arrange. Special Precautions Fall Risk: Moderate Initial D/C Plan Pt will plan to return to [facility] Identified Discharge Needs: Psychiatric services Currently Utilized Resources Currently Utilized Resources/P: Primary Care Physician Telehealth for counseling Referrals Community Resources: Psychiatrist Identified Problems/Hx/Goals Objectives/Short-Term Goals Short Term Goals: Dec. Aggression, Dec. Hallucination/Delus, Dec. Outbursts, Improved Social Skills, Promote Coping Skill Short Term Goals in Patient's: N/A Interventions/Frequency Staff Interventions/Frequency&: Psychiatrist to assess pt at least 3x per week for medicaiton management. Social Work to assess pt at least 2x per week for discharge planning and identification of any barriers to care. Nursing to asses pt medication effects, behavioral management, and complete 15 minute checks. Encourage group participation in group activities (if applicable) or 1:1 engagement based off Activity Dept goals. History Vocational History: Pt worked for the post [employer] for many years. 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 Pt has a Bachelors and Masters in Business Administration Community Follow-up Primary Care Physician Telehealth for counseling Community Provider/Family Inpu: "Just make sure you keep her busy. It'll help everyone out in the long run" Treatment Plan Explained Patient/Log Skidder had this treatment plan explained to him/her as indicated by the signature below and has been given the opportunity to ask questions and make suggestions: Date: Patient/Log Skidder Signature: Status Update Update Pt is eating 100% of meals and sleeping on average 9 hours per night. Pt is ca lm, cooperative and medication compliant. Pt is on Isolation contact due to ESBL in her urine. Pt has been intermittently placing herself on the floor when she gets upset; but is redirectable. At this time, pt will plan to return to [facility] later this week. Pt is currently on Seroquel, Risperdal, Depakote Sprinkles, and Melatonin. JEANNIE ROMERO Jun 26, 2020 17:21
[2020-06-26] MEDS: MELATONIN 3 MG TABLET PO SCH (20:20)
[2020-06-26] MEDS: ATORVASTATIN CALCIUM 20 MG TABLET PO SCH (20:21)
--- NOTE | 2020-06-26 20:55 | PDOC ---
Exam Note: Edgar Note: Please also refer to the separate dictated note~for this date of service dictated separately.~Patient seen individually. Discussed the patient with Nursing staff reviewed the chart.~Reviewed interim history and current functioning. Reviewed vital signs,~Labs/ Radiology~and current medications noted below. Continue current treatment with the changes noted in the dictated addendum note Assessment: Vital Signs/I&O: Vital Signs Date Time Temp Pulse Resp B/P (MAP) Pulse Ox O2 Delivery O2 Flow Rate FiO2 06/26/20 16:28 98.0 85 18 139/65 (89) 96 06/26/20 06:06 Room Air I & O 06/25/20 06/25/20 06/26/20 15:00 23:00 07:00 Intake Total 580 ml 480 ml Balance 580 ml 480 ml Labs: Laboratory Tests Test 06/26/20 07:29 06/26/20 12:00 06/26/20 17:23 06/26/20 19:11 Glucose (Fingerstick) 145 mg/dL (70-99) H 160 mg/dL (70-99) H 210 mg/dL (70-99) H 203 mg/dL (70-99) H Current Medications: Meds: Laboratory Tests Test 06/26/20 07:29 06/26/20 12:00 06/26/20 17:23 06/26/20 19:11 Glucose (Fingerstick) 145 mg/dL 160 mg/dL 210 mg/dL 203 mg/dL Current Medications Medications (Trade) Dose Ordered Sig/Alexx Route PRN Reason Start Time Stop Time Status Last Admin Dose Admin Acetaminophen (Tylenol) 650 mg PRN Q6HRS PRN PO MILD PAIN / TEMP > 100.3'F 06/16/20 20:30 06/25/20 18:24 Multi-Ingredient Ointment (Analgesic [place]) 1 rocio PRN QID PRN TP MUSCLE PAIN 06/16/20 20:30 Al Hydroxide/Mg Hydroxide (Mylanta Plus Xs) 15 ml PRN AFTMEALHC PRN PO DYSPEPSIA 06/16/20 20:30 Magnesium Hydroxide (Milk Of Magnesia) 2,400 mg PRN QHS PRN PO CONSTIPATION 06/16/20 20:30 Apixaban (Eliquis) 5 mg BID PO 06/16/20 21:00 06/26/20 20:21 Aspirin (Aspirin Enteric Coated) 81 mg DAILY PO 06/17/20 09:00 06/26/20 08:19 Divalproex Sodium (Depakote Sprinkles) 125 mg TID PO 06/16/20 21:30 06/17/20 11:56 DC 06/17/20 08:17 Gabapentin (Neurontin) 100 mg BID PO 06/16/20 21:30 06/26/20 20:21 Acetaminophen/ Hydrocodone Bitart (Lortab 5/325) 1 tab PRN Q4HRS PRN PO MOD-SEV PAIN 06/16/20 21:00 Linagliptin (Tradjenta) 5 mg DAILY PO 06/17/20 09:00 06/26/20 08:18 Melatonin (Melatonin) 3 mg HS PO 06/16/20 21:30 06/26/20 20:20 Metformin HCl (Glucophage) 750 mg BIDWMEALS PO 06/17/20 08:00 06/26/20 17:28 Metoprolol Succinate (Toprol Xl) 25 mg DAILY PO 06/17/20 09:00 06/20/20 16:14 DC 06/20/20 08:29 Nicotine (Nicoderm Cq 14mg Patch) 1 patch DAILY TD 06/17/20 09:00 06/26/20 08:20 Quetiapine Fumarate (SEROquel) 50 mg BID PO 06/16/20 21:30 06/17/20 11:56 DC 06/17/20 08:16 Atorvastatin Calcium (Lipitor) 40 mg QHS PO 06/16/20 21:30 06/26/20 20:21 Cyanocobalamin (Vitamin B-12) 500 mcg DAILY PO 06/17/20 09:00 06/26/20 08:20 Insulin Glargine (Lantus Syringe) 35 unit DAILY SQ 06/17/20 09:00 06/26/20 08:35 Lactobacillus Rhamnosus (Culturelle) 1 cap DAILY PO 06/17/20 09:00 06/26/20 08:19 Multivitamins/ Calcium (Thera-M Plus) 1 tab DAILY PO 06/17/20 09:00 06/26/20 08:18 Pantoprazole Sodium (Protonix) 40 mg DAILY PO 06/17/20 09:00 06/26/20 08:19 Vitamin D (Vitamin D3) 500 unit DAILY PO 06/17/20 09:00 06/26/20 08:18 Insulin Human Lispro (HumaLOG) 0-5 UNITS TIDWMEALS SQ 06/17/20 08:00 06/17/20 12:18 Dextrose (Dextrose 50%-Water Syringe) 12.5 gm PRN Q15MIN PRN IV SEE COMMENTS 06/16/20 21:00 Olanzapine (ZyPREXA ZYDIS) 2.5 mg PRN Q2HRS PRN PO PSYCHOSIS/Agitation 06/16/20 21:15 06/18/20 18:00 DC 06/18/20 08:45 Divalproex Sodium (Depakote Sprinkles) 250 mg TID PO 06/17/20 14:00 06/20/20 18:07 DC 06/20/20 13:04 Quetiapine Fumarate (SEROquel) 150 mg HS PO 06/17/20 21:00 06/21/20 17:15 DC 06/20/20 20:53 Quetiapine Fumarate (SEROquel) 25 mg PRN Q4HRS PRN PO AGITATION 06/18/20 10:00 06/23/20 14:55 Trimethoprim/ Sulfamethoxazole (Bactrim Ss) 1 tab BID PO 06/20/20 21:00 06/28/20 21:00 06/26/20 20:22 Metoprolol Succinate (Toprol Xl) 50 mg DAILY PO 06/21/20 09:00 06/26/20 08:19 Divalproex Sodium (Depakote Sprinkles) 500 mg 0900,1700 PO 06/21/20 09:00 06/24/20 17:10 DC 06/24/20 08:43 Risperidone (RisperDAL) 0.5 mg BID PO 06/21/20 21:00 06/26/20 20:20 Hydralazine HCl (Apresoline) 25 mg PRN TID PRN PO anxiety 06/21/20 17:30 06/23/20 10:38 Divalproex Sodium (Depakote Sprinkles) 500 mg 0900 PO 06/25/20 09:00 06/26/20 08:19 Divalproex Sodium (Depakote Sprinkles) 750 mg HS PO 06/24/20 21:00 06/26/20 20:20 I have reviewed the current psychotropics carefully including drug interactions. Risk benefit ratio favors no change other than as noted in my dictated progress note. Diagnosis: Problems: (1) Schizoaffective disorder, bipolar type (2) Impulse control disorder, unspecified (3) Anxiety disorder, unspecified (4) Bipolar disorder, curr episode mixed, severe, with psychotic features CHAVO WANG MD Jun 26, 2020 20:55
[2020-06-27 05:58] VITALS: BP 162/68
[2020-06-27 07:08] LABS: BASO % 0 % (0-3); EOS # 0.2 x10^3/uL (0.0-0.7); EOS % 3 % (0-3); HEMATOCRIT 34.6 % (36.0-47.0); LYMPH # 2.8 x10^3/uL (1.0-4.8); LYMPH % 36 % (24-48); MEAN CORPUSCULAR HEMOGLOBIN 28 pg (25-35); MEAN CORPUSCULAR HGB CONC 32 g/dL (31-37); MEAN CORPUSCULAR VOLUME 88 fL (79-100); MONO # 0.7 x10^3/uL (0.0-1.1); MONO % 9 % (0-9); NEUT # 3.9 x10^3uL (1.8-7.7); NEUT % 51 % (31-73); PLATELET COUNT 258 x10^3/uL (140-400); RED BLOOD COUNT 3.93 x10^6/uL (3.50-5.40); RED CELL DISTRIBUTION WIDTH 15.7 % (11.5-14.5); WHITE BLOOD COUNT 7.6 x10^3/uL (4.0-11.0)
[2020-06-27 07:24] LABS: ALBUMIN 2.9 g/dL (3.4-5.0); ALBUMIN/GLOBULIN RATIO 0.9 (1.0-1.7); ALK PHOS 66 U/L (46-116); ALT (SGPT) 37 U/L (14-59); ANION GAP 10 (6-14); AST (SGOT) 21 U/L (15-37); BLOOD UREA NITROGEN 19 mg/dL (7-20); BUN/CREATININE RATIO 19 (6-20); CALCIUM 8.7 mg/dL (8.5-10.1); CARBON DIOXIDE 24 mmol/L (21-32); CHLORIDE 104 mmol/L (98-107); GLUCOSE 145 mg/dL (70-99); POTASSIUM 4.2 mmol/L (3.5-5.1); SODIUM 138 mmol/L (136-145); TOTAL BILIRUBIN 0.2 mg/dL (0.2-1.0); TOTAL PROTEIN 6.2 g/dL (6.4-8.2)
[2020-06-27 07:27] LABS: VAL ACID 66 mcg/mL (50-100)
[2020-06-27] MEDS: CYANOCOBALAMIN (VITAMIN B-12) 250 MCG TABLET. PO SCH (07:48)
[2020-06-27] MEDS: ASPIRIN ENTERIC COATED 81 MG TABLET.DR. PO SCH (07:48)
[2020-06-27] MEDS: DIVALPROEX 125 MG CAP.SPRINK PO SCH ×2 (07:48→19:58)
[2020-06-27] MEDS: risperiDONE 0.5 MG TABLET. PO SCH ×2 (07:49→19:57)
[2020-06-27] MEDS: MULTIVITAMIN with MINERAL TABLET. PO SCH (07:49)
[2020-06-27] MEDS: metFORMIN 500 MG TABLET PO SCH ×2 (07:49→17:17)
[2020-06-27] MEDS: LACTOBACILLUS RHAMNOSUS GG 1 CAPSULE. PO SCH (07:49)
[2020-06-27] MEDS: LINAGLIPTIN 5 MG TABLET PO SCH (07:49)
[2020-06-27] MEDS: NICOTINE 14MG PATCH. TD SCH (07:50)
[2020-06-27] MEDS: METOPROLOL SUCC 24HR ER 50 MG TAB.ER.24H. PO SCH (07:50)
[2020-06-27] MEDS: APIXABAN 5 MG TABLET. PO SCH ×2 (07:50→19:57)
[2020-06-27] MEDS: CHOLECALCIFEROL (VITAMIN D3) 1,000 UNIT TABLET PO SCH (07:50)
[2020-06-27] MEDS: INSULIN LISPRO 300 UNITS/3 ML VIAL. SQ SCH ×3 (07:52→17:00)
[2020-06-27] MEDS: PANTOPRAZOLE 40 MG TABLET. PO SCH (07:52)
[2020-06-27] MEDS: GABAPENTIN 100 MG CAPSULE. PO SCH ×2 (07:55→19:58)
[2020-06-27] MEDS: SMZ/TMP 400/80MG TABLET. PO SCH ×2 (07:55→20:02)
--- NOTE | 2020-06-27 08:11 | PDOC ---
Exam Note: Edgar Note: This note is a late entry for 06/26/2020 covers elements not covered in my initial note. Subjective: The patient was seen face to face in the morning of 06/26/2020 for a treatment team meeting with Iraida Wills, Sadaf Aguilar and Mari (school social worker), Zonia Merida, activity therapy and Treasure MELGAR. Discussed with nursing staff, reviewed the chart. She slept 4-1/2 hours previous night. Overall the patient was agitated previous evening, had to be in the West hallway but today is back in her room where I met with her in the evening. Review of Systems: Impaired ambulation. No CV, , pulmonary, eye, ENT system symptoms on review. Mental Status Exam: The patient is oriented. She is pleasant, verbal, interactive, quite animated as I met with her, not irritable or yelling, less paranoid. Speech coherent, less pressured, verbal, smiling. Abstraction is fair. Computation is impaired. Language function is intact. Attention span is short. Mood and affect showing improvement, less paranoid. No suicidal or homicidal ideation. Laboratory Data: Reviewed. Impression: Schizoaffective disorder bipolar type, mixed versus bipolar disorder mixed with psychotic features. Anxiety disorder unspecified. Impulse control disorder unspecified. Plan: No change from initial note. Assessment: Vital Signs/I&O: Vital Signs Date Time Temp Pulse Resp B/P (MAP) Pulse Ox O2 Delivery O2 Flow Rate FiO2 06/27/20 07:50 77 162/68 06/27/20 05:58 98.8 22 97 Room Air I & O 06/26/20 06/26/20 06/27/20 15:00 23:00 07:00 Intake Total 480 ml 360 ml Balance 480 ml 360 ml Labs: Laboratory Tests Test 06/26/20 12:00 06/26/20 17:23 06/26/20 19:11 06/27/20 06:30 Glucose (Fingerstick) 160 mg/dL (70-99) H 210 mg/dL (70-99) H 203 mg/dL (70-99) H White Blood Count 7.6 x10^3/uL (4.0-11.0) Red Blood Count 3.93 x10^6/uL (3.50-5.40) Hemoglobin 11.0 g/dL (12.0-15.5) L Hematocrit 34.6 % (36.0-47.0) L Mean Corpuscular Volume 88 fL (79-100) Mean Corpuscular Hemoglobin 28 pg (25-35) Mean Corpuscular Hemoglobin Concent 32 g/dL (31-37) Red Cell Distribution Width 15.7 % (11.5-14.5) H Platelet Count 258 x10^3/uL (140-400) Neutrophils (%) (Auto) 51 % (31-73) Lymphocytes (%) (Auto) 36 % (24-48) Monocytes (%) (Auto) 9 % (0-9) Eosinophils (%) (Auto) 3 % (0-3) Basophils (%) (Auto) 0 % (0-3) Neutrophils # (Auto) 3.9 x10^3uL (1.8-7.7) Lymphocytes # (Auto) 2.8 x10^3/uL (1.0-4.8) Monocytes # (Auto) 0.7 x10^3/uL (0.0-1.1) Eosinophils # (Auto) 0.2 x10^3/uL (0.0-0.7) Basophils # (Auto) 0.0 x10^3/uL (0.0-0.2) Sodium Level 138 mmol/L (136-145) Potassium Level 4.2 mmol/L (3.5-5.1) Chloride Level 104 mmol/L (98-107) Carbon Dioxide Level 24 mmol/L (21-32) Anion Gap 10 (6-14) Blood Urea Nitrogen 19 mg/dL (7-20) Creatinine 1.0 mg/dL (0.6-1.0) Estimated GFR (Cockcroft-Gault) 55.0 BUN/Creatinine Ratio 19 (6-20) Glucose Level 145 mg/dL (70-99) H Calcium Level 8.7 mg/dL (8.5-10.1) Total Bilirubin 0.2 mg/dL (0.2-1.0) Aspartate Amino Transferase (AST) 21 U/L (15-37) Alanine Aminotransferase (ALT) 37 U/L (14-59) Alkaline Phosphatase 66 U/L (46-116) Total Protein 6.2 g/dL (6.4-8.2) L Albumin 2.9 g/dL (3.4-5.0) L Albumin/Globulin Ratio 0.9 (1.0-1.7) L Valproic Acid Level 66 mcg/mL (50-100) Valproic Acid Last Dose Date 06/26/20 Valproic Acid Last Dose Time 2100 Test 06/27/20 07:28 Glucose (Fingerstick) 155 mg/dL (70-99) H Current Medications: Meds: Laboratory Tests Test 06/26/20 12:00 06/26/20 17:23 06/26/20 19:11 06/27/20 06:30 Glucose (Fingerstick) 160 mg/dL 210 mg/dL 203 mg/dL White Blood Count 7.6 x10^3/uL Red Blood Count 3.93 x10^6/uL Hemoglobin 11.0 g/dL Hematocrit 34.6 % Mean Corpuscular Volume 88 fL Mean Corpuscular Hemoglobin 28 pg Mean Corpuscular Hemoglobin Concent 32 g/dL Red Cell Distribution Width 15.7 % Platelet Count 258 x10^3/uL Neutrophils (%) (Auto) 51 % Lymphocytes (%) (Auto) 36 % Monocytes (%) (Auto) 9 % Eosinophils (%) (Auto) 3 % Basophils (%) (Auto) 0 % Neutrophils # (Auto) 3.9 x10^3uL Lymphocytes # (Auto) 2.8 x10^3/uL Monocytes # (Auto) 0.7 x10^3/uL Eosinophils # (Auto) 0.2 x10^3/uL Basophils # (Auto) 0.0 x10^3/uL Sodium Level 138 mmol/L Potassium Level 4.2 mmol/L Chloride Level 104 mmol/L Carbon Dioxide Level 24 mmol/L Anion Gap 10 Blood Urea Nitrogen 19 mg/dL Creatinine 1.0 mg/dL Estimated GFR (Cockcroft-Gault) 55.0 BUN/Creatinine Ratio 19 Glucose Level 145 mg/dL Calcium Level 8.7 mg/dL Total Bilirubin 0.2 mg/dL Aspartate Amino Transf (AST/SGOT) 21 U/L Alanine Aminotransferase (ALT/SGPT) 37 U/L Alkaline Phosphatase 66 U/L Total Protein 6.2 g/dL Albumin 2.9 g/dL Albumin/Globulin Ratio 0.9 Valproic Acid (Depakene) Level 66 mcg/mL Valproic Acid Last Dose Date 06/26/20 Valproic Acid Last Dose Time 2100 Test 06/27/20 07:28 Glucose (Fingerstick) 155 mg/dL Current Medications Medications (Trade) Dose Ordered Sig/Alexx Route PRN Reason Start Time Stop Time Status Last Admin Dose Admin Acetaminophen (Tylenol) 650 mg PRN Q6HRS PRN PO MILD PAIN / TEMP > 100.3'F 06/16/20 20:30 06/25/20 18:24 Multi-Ingredient Ointment (Analgesic [place]) 1 rocio PRN QID PRN TP MUSCLE PAIN 06/16/20 20:30 Al Hydroxide/Mg Hydroxide (Mylanta Plus Xs) 15 ml PRN AFTMEALHC PRN PO DYSPEPSIA 06/16/20 20:30 Magnesium Hydroxide (Milk Of Magnesia) 2,400 mg PRN QHS PRN PO CONSTIPATION 06/16/20 20:30 Apixaban (Eliquis) 5 mg BID PO 06/16/20 21:00 06/27/20 07:50 Aspirin (Aspirin Enteric Coated) 81 mg DAILY PO 06/17/20 09:00 06/27/20 07:48 Divalproex Sodium (Depakote Sprinkles) 125 mg TID PO 06/16/20 21:30 06/17/20 11:56 DC 06/17/20 08:17 Gabapentin (Neurontin) 100 mg BID PO 06/16/20 21:30 06/27/20 07:55 Acetaminophen/ Hydrocodone Bitart (Lortab 5/325) 1 tab PRN Q4HRS PRN PO MOD-SEV PAIN 06/16/20 21:00 Linagliptin (Tradjenta) 5 mg DAILY PO 06/17/20 09:00 06/27/20 07:49 Melatonin (Melatonin) 3 mg HS PO 06/16/20 21:30 06/26/20 20:20 Metformin HCl (Glucophage) 750 mg BIDWMEALS PO 06/17/20 08:00 06/27/20 07:49 Metoprolol Succinate (Toprol Xl) 25 mg DAILY PO 06/17/20 09:00 06/20/20 16:14 DC 06/20/20 08:29 Nicotine (Nicoderm Cq 14mg Patch) 1 patch DAILY TD 06/17/20 09:00 06/27/20 07:50 Quetiapine Fumarate (SEROquel) 50 mg BID PO 06/16/20 21:30 06/17/20 11:56 DC 06/17/20 08:16 Atorvastatin Calcium (Lipitor) 40 mg QHS PO 06/16/20 21:30 06/26/20 20:21 Cyanocobalamin (Vitamin B-12) 500 mcg DAILY PO 06/17/20 09:00 06/27/20 07:48 Insulin Glargine (Lantus Syringe) 35 unit DAILY SQ 06/17/20 09:00 06/26/20 08:35 Lactobacillus Rhamnosus (Culturelle) 1 cap DAILY PO 06/17/20 09:00 06/27/20 07:49 Multivitamins/ Calcium (Thera-M Plus) 1 tab DAILY PO 06/17/20 09:00 06/27/20 07:49 Pantoprazole Sodium (Protonix) 40 mg DAILY PO 06/17/20 09:00 06/27/20 07:52 Vitamin D (Vitamin D3) 500 unit DAILY PO 06/17/20 09:00 06/27/20 07:50 Insulin Human Lispro (HumaLOG) 0-5 UNITS TIDWMEALS SQ 06/17/20 08:00 06/17/20 12:18 Dextrose (Dextrose 50%-Water Syringe) 12.5 gm PRN Q15MIN PRN IV SEE COMMENTS 06/16/20 21:00 Olanzapine (ZyPREXA ZYDIS) 2.5 mg PRN Q2HRS PRN PO PSYCHOSIS/Agitation 06/16/20 21:15 06/18/20 18:00 DC 06/18/20 08:45 Divalproex Sodium (Depakote Sprinkles) 250 mg TID PO 06/17/20 14:00 06/20/20 18:07 DC 06/20/20 13:04 Quetiapine Fumarate (SEROquel) 150 mg HS PO 06/17/20 21:00 06/21/20 17:15 DC 06/20/20 20:53 Quetiapine Fumarate (SEROquel) 25 mg PRN Q4HRS PRN PO AGITATION 06/18/20 10:00 06/23/20 14:55 Trimethoprim/ Sulfamethoxazole (Bactrim Ss) 1 tab BID PO 06/20/20 21:00 06/28/20 21:00 06/27/20 07:55 Metoprolol Succinate (Toprol Xl) 50 mg DAILY PO 06/21/20 09:00 06/27/20 07:50 Divalproex Sodium (Depakote Sprinkles) 500 mg 0900,1700 PO 06/21/20 09:00 06/24/20 17:10 DC 06/24/20 08:43 Risperidone (RisperDAL) 0.5 mg BID PO 06/21/20 21:00 06/27/20 07:49 Hydralazine HCl (Apresoline) 25 mg PRN TID PRN PO anxiety 06/21/20 17:30 06/23/20 10:38 Divalproex Sodium (Depakote Sprinkles) 500 mg 0900 PO 06/25/20 09:00 06/27/20 07:48 Divalproex Sodium (Depakote Sprinkles) 750 mg HS PO 06/24/20 21:00 06/26/20 20:20 I have reviewed the current psychotropics carefully including drug interactions. Risk benefit ratio favors no change other than as noted in my dictated progress note. Diagnosis: Problems: (1) Schizoaffective disorder, bipolar type (2) Impulse control disorder, unspecified (3) Anxiety disorder, unspecified (4) Bipolar disorder, curr episode mixed, severe, with psychotic features CHAVO WANG MD Jun 27, 2020 08:11
[2020-06-27] MEDS: INSULIN GLARGINE SYRINGE. SQ SCH (09:12)
[2020-06-27] MEDS: QUEtiapine 25 MG TABLET. PO PRN (10:30)
[2020-06-27] MEDS: hydrALAZINE 25 MG TABLET PO PRN (15:50)
[2020-06-27 15:59] VITALS: BP 135/67
[2020-06-27] MEDS: ATORVASTATIN CALCIUM 20 MG TABLET PO SCH (19:57)
[2020-06-27] MEDS: MELATONIN 3 MG TABLET PO SCH (19:57)
--- NOTE | 2020-06-27 21:27 | PDOC ---
Exam Note: Edgar Note: Please also refer to the separate dictated note~for this date of service dictated separately.~Patient seen individually. Discussed the patient with Nursing staff reviewed the chart.~Reviewed interim history and current functioning. Reviewed vital signs,~Labs/ Radiology~and current medications noted below. Continue current treatment with the changes noted in the dictated addendum note Assessment: Vital Signs/I&O: Vital Signs Date Time Temp Pulse Resp B/P (MAP) Pulse Ox O2 Delivery O2 Flow Rate FiO2 06/27/20 15:59 97.6 124 20 135/67 (89) 98 Room Air I & O 06/26/20 06/26/20 06/27/20 15:00 23:00 07:00 Intake Total 480 ml 360 ml Balance 480 ml 360 ml Labs: Laboratory Tests Test 06/27/20 06:30 06/27/20 07:28 06/27/20 11:38 06/27/20 17:04 White Blood Count 7.6 x10^3/uL (4.0-11.0) Red Blood Count 3.93 x10^6/uL (3.50-5.40) Hemoglobin 11.0 g/dL (12.0-15.5) L Hematocrit 34.6 % (36.0-47.0) L Mean Corpuscular Volume 88 fL (79-100) Mean Corpuscular Hemoglobin 28 pg (25-35) Mean Corpuscular Hemoglobin Concent 32 g/dL (31-37) Red Cell Distribution Width 15.7 % (11.5-14.5) H Platelet Count 258 x10^3/uL (140-400) Neutrophils (%) (Auto) 51 % (31-73) Lymphocytes (%) (Auto) 36 % (24-48) Monocytes (%) (Auto) 9 % (0-9) Eosinophils (%) (Auto) 3 % (0-3) Basophils (%) (Auto) 0 % (0-3) Neutrophils # (Auto) 3.9 x10^3uL (1.8-7.7) Lymphocytes # (Auto) 2.8 x10^3/uL (1.0-4.8) Monocytes # (Auto) 0.7 x10^3/uL (0.0-1.1) Eosinophils # (Auto) 0.2 x10^3/uL (0.0-0.7) Basophils # (Auto) 0.0 x10^3/uL (0.0-0.2) Sodium Level 138 mmol/L (136-145) Potassium Level 4.2 mmol/L (3.5-5.1) Chloride Level 104 mmol/L (98-107) Carbon Dioxide Level 24 mmol/L (21-32) Anion Gap 10 (6-14) Blood Urea Nitrogen 19 mg/dL (7-20) Creatinine 1.0 mg/dL (0.6-1.0) Estimated GFR (Cockcroft-Gault) 55.0 BUN/Creatinine Ratio 19 (6-20) Glucose Level 145 mg/dL (70-99) H Calcium Level 8.7 mg/dL (8.5-10.1) Total Bilirubin 0.2 mg/dL (0.2-1.0) Aspartate Amino Transferase (AST) 21 U/L (15-37) Alanine Aminotransferase (ALT) 37 U/L (14-59) Alkaline Phosphatase 66 U/L (46-116) Total Protein 6.2 g/dL (6.4-8.2) L Albumin 2.9 g/dL (3.4-5.0) L Albumin/Globulin Ratio 0.9 (1.0-1.7) L Valproic Acid Level 66 mcg/mL (50-100) Valproic Acid Last Dose Date 06/26/20 Valproic Acid Last Dose Time 2100 Glucose (Fingerstick) 155 mg/dL (70-99) H 146 mg/dL (70-99) H 185 mg/dL (70-99) H Test 06/27/20 19:06 Glucose (Fingerstick) 198 mg/dL (70-99) H Current Medications: Meds: Laboratory Tests Test 06/27/20 06:30 06/27/20 07:28 06/27/20 11:38 06/27/20 17:04 White Blood Count 7.6 x10^3/uL Red Blood Count 3.93 x10^6/uL Hemoglobin 11.0 g/dL Hematocrit 34.6 % Mean Corpuscular Volume 88 fL Mean Corpuscular Hemoglobin 28 pg Mean Corpuscular Hemoglobin Concent 32 g/dL Red Cell Distribution Width 15.7 % Platelet Count 258 x10^3/uL Neutrophils (%) (Auto) 51 % Lymphocytes (%) (Auto) 36 % Monocytes (%) (Auto) 9 % Eosinophils (%) (Auto) 3 % Basophils (%) (Auto) 0 % Neutrophils # (Auto) 3.9 x10^3uL Lymphocytes # (Auto) 2.8 x10^3/uL Monocytes # (Auto) 0.7 x10^3/uL Eosinophils # (Auto) 0.2 x10^3/uL Basophils # (Auto) 0.0 x10^3/uL Sodium Level 138 mmol/L Potassium Level 4.2 mmol/L Chloride Level 104 mmol/L Carbon Dioxide Level 24 mmol/L Anion Gap 10 Blood Urea Nitrogen 19 mg/dL Creatinine 1.0 mg/dL Estimated GFR (Cockcroft-Gault) 55.0 BUN/Creatinine Ratio 19 Glucose Level 145 mg/dL Calcium Level 8.7 mg/dL Total Bilirubin 0.2 mg/dL Aspartate Amino Transf (AST/SGOT) 21 U/L Alanine Aminotransferase (ALT/SGPT) 37 U/L Alkaline Phosphatase 66 U/L Total Protein 6.2 g/dL Albumin 2.9 g/dL Albumin/Globulin Ratio 0.9 Valproic Acid (Depakene) Level 66 mcg/mL Valproic Acid Last Dose Date 06/26/20 Valproic Acid Last Dose Time 2100 Glucose (Fingerstick) 155 mg/dL 146 mg/dL 185 mg/dL Test 06/27/20 19:06 Glucose (Fingerstick) 198 mg/dL Current Medications Medications (Trade) Dose Ordered Sig/Alexx Route PRN Reason Start Time Stop Time Status Last Admin Dose Admin Acetaminophen (Tylenol) 650 mg PRN Q6HRS PRN PO MILD PAIN / TEMP > 100.3'F 06/16/20 20:30 06/25/20 18:24 Multi-Ingredient Ointment (Analgesic [place]) 1 rocio PRN QID PRN TP MUSCLE PAIN 06/16/20 20:30 Al Hydroxide/Mg Hydroxide (Mylanta Plus Xs) 15 ml PRN AFTMEALHC PRN PO DYSPEPSIA 06/16/20 20:30 Magnesium Hydroxide (Milk Of Magnesia) 2,400 mg PRN QHS PRN PO CONSTIPATION 06/16/20 20:30 Apixaban (Eliquis) 5 mg BID PO 06/16/20 21:00 06/27/20 19:57 Aspirin (Aspirin Enteric Coated) 81 mg DAILY PO 06/17/20 09:00 06/27/20 07:48 Divalproex Sodium (Depakote Sprinkles) 125 mg TID PO 06/16/20 21:30 06/17/20 11:56 DC 06/17/20 08:17 Gabapentin (Neurontin) 100 mg BID PO 06/16/20 21:30 06/27/20 19:58 Acetaminophen/ Hydrocodone Bitart (Lortab 5/325) 1 tab PRN Q4HRS PRN PO MOD-SEV PAIN 06/16/20 21:00 Linagliptin (Tradjenta) 5 mg DAILY PO 06/17/20 09:00 06/27/20 07:49 Melatonin (Melatonin) 3 mg HS PO 06/16/20 21:30 06/27/20 19:57 Metformin HCl (Glucophage) 750 mg BIDWMEALS PO 06/17/20 08:00 06/27/20 17:17 Metoprolol Succinate (Toprol Xl) 25 mg DAILY PO 06/17/20 09:00 06/20/20 16:14 DC 06/20/20 08:29 Nicotine (Nicoderm Cq 14mg Patch) 1 patch DAILY TD 06/17/20 09:00 06/27/20 07:50 Quetiapine Fumarate (SEROquel) 50 mg BID PO 06/16/20 21:30 06/17/20 11:56 DC 06/17/20 08:16 Atorvastatin Calcium (Lipitor) 40 mg QHS PO 06/16/20 21:30 06/27/20 19:57 Cyanocobalamin (Vitamin B-12) 500 mcg DAILY PO 06/17/20 09:00 06/27/20 07:48 Insulin Glargine (Lantus Syringe) 35 unit DAILY SQ 06/17/20 09:00 06/27/20 09:12 Lactobacillus Rhamnosus (Culturelle) 1 cap DAILY PO 06/17/20 09:00 06/27/20 07:49 Multivitamins/ Calcium (Thera-M Plus) 1 tab DAILY PO 06/17/20 09:00 06/27/20 07:49 Pantoprazole Sodium (Protonix) 40 mg DAILY PO 06/17/20 09:00 06/27/20 07:52 Vitamin D (Vitamin D3) 500 unit DAILY PO 06/17/20 09:00 06/27/20 07:50 Insulin Human Lispro (HumaLOG) 0-5 UNITS TIDWMEALS SQ 06/17/20 08:00 06/17/20 12:18 Dextrose (Dextrose 50%-Water Syringe) 12.5 gm PRN Q15MIN PRN IV SEE COMMENTS 06/16/20 21:00 Olanzapine (ZyPREXA ZYDIS) 2.5 mg PRN Q2HRS PRN PO PSYCHOSIS/Agitation 06/16/20 21:15 06/18/20 18:00 DC 06/18/20 08:45 Divalproex Sodium (Depakote Sprinkles) 250 mg TID PO 06/17/20 14:00 06/20/20 18:07 DC 06/20/20 13:04 Quetiapine Fumarate (SEROquel) 150 mg HS PO 06/17/20 21:00 06/21/20 17:15 DC 06/20/20 20:53 Quetiapine Fumarate (SEROquel) 25 mg PRN Q4HRS PRN PO AGITATION 06/18/20 10:00 06/27/20 10:30 Trimethoprim/ Sulfamethoxazole (Bactrim Ss) 1 tab BID PO 06/20/20 21:00 06/28/20 21:00 06/27/20 20:02 Metoprolol Succinate (Toprol Xl) 50 mg DAILY PO 06/21/20 09:00 06/27/20 07:50 Divalproex Sodium (Depakote Sprinkles) 500 mg 0900,1700 PO 06/21/20 09:00 06/24/20 17:10 DC 06/24/20 08:43 Risperidone (RisperDAL) 0.5 mg BID PO 06/21/20 21:00 06/27/20 19:57 Hydralazine HCl (Apresoline) 25 mg PRN TID PRN PO anxiety 06/21/20 17:30 06/27/20 15:50 Divalproex Sodium (Depakote Sprinkles) 500 mg 0900 PO 06/25/20 09:00 06/27/20 07:48 Divalproex Sodium (Depakote Sprinkles) 750 mg HS PO 06/24/20 21:00 06/27/20 19:58 I have reviewed the current psychotropics carefully including drug interactions. Risk benefit ratio favors no change other than as noted in my dictated progress note. Diagnosis: Problems: (1) Schizoaffective disorder, bipolar type (2) Impulse control disorder, unspecified (3) Anxiety disorder, unspecified (4) Bipolar disorder, curr episode mixed, severe, with psychotic features CHAVO WANG MD Jun 27, 2020 21:27
[2020-06-28 06:01] VITALS: BP 122/71
[2020-06-28] MEDS: INSULIN LISPRO 300 UNITS/3 ML VIAL. SQ SCH ×3 (08:00→17:00)
[2020-06-28] MEDS: NICOTINE 14MG PATCH. TD SCH (08:48)
[2020-06-28] MEDS: METOPROLOL SUCC 24HR ER 50 MG TAB.ER.24H. PO SCH (08:49)
[2020-06-28] MEDS: metFORMIN 500 MG TABLET PO SCH ×2 (08:49→17:03)
[2020-06-28] MEDS: PANTOPRAZOLE 40 MG TABLET. PO SCH (08:49)
[2020-06-28] MEDS: LACTOBACILLUS RHAMNOSUS GG 1 CAPSULE. PO SCH (08:49)
[2020-06-28] MEDS: CYANOCOBALAMIN (VITAMIN B-12) 250 MCG TABLET. PO SCH (08:49)
[2020-06-28] MEDS: risperiDONE 0.5 MG TABLET. PO SCH ×2 (08:49→20:38)
[2020-06-28] MEDS: LINAGLIPTIN 5 MG TABLET PO SCH (08:49)
[2020-06-28] MEDS: CHOLECALCIFEROL (VITAMIN D3) 1,000 UNIT TABLET PO SCH (08:49)
[2020-06-28] MEDS: DIVALPROEX 125 MG CAP.SPRINK PO SCH ×2 (08:49→20:38)
[2020-06-28] MEDS: ASPIRIN ENTERIC COATED 81 MG TABLET.DR. PO SCH (08:50)
[2020-06-28] MEDS: MULTIVITAMIN with MINERAL TABLET. PO SCH (08:50)
[2020-06-28] MEDS: APIXABAN 5 MG TABLET. PO SCH ×2 (08:50→20:38)
[2020-06-28] MEDS: SMZ/TMP 400/80MG TABLET. PO SCH ×2 (08:53→20:39)
[2020-06-28] MEDS: GABAPENTIN 100 MG CAPSULE. PO SCH ×2 (08:53→20:38)
[2020-06-28] MEDS: INSULIN GLARGINE SYRINGE. SQ SCH (09:32)
[2020-06-28] MEDS: QUEtiapine 25 MG TABLET. PO PRN (12:23)
[2020-06-28 17:38] VITALS: BP 138/64
[2020-06-28] MEDS: ATORVASTATIN CALCIUM 20 MG TABLET PO SCH (20:38)
[2020-06-28] MEDS: MELATONIN 3 MG TABLET PO SCH (20:38)
--- NOTE | 2020-06-28 20:50 | PDOC ---
Exam Note: Edgar Note: Please also refer to the separate dictated note~for this date of service dictated separately.~Patient seen individually. Discussed the patient with Nursing staff reviewed the chart.~Reviewed interim history and current functioning. Reviewed vital signs,~Labs/ Radiology~and current medications noted below. Continue current treatment with the changes noted in the dictated addendum note Assessment: Vital Signs/I&O: Vital Signs Date Time Temp Pulse Resp B/P (MAP) Pulse Ox O2 Delivery O2 Flow Rate FiO2 06/28/20 17:38 98.2 79 16 138/64 (88) 96 06/28/20 06:01 Room Air I & O 06/27/20 06/27/20 06/28/20 15:00 23:00 07:00 Intake Total 720 ml 360 ml Balance 720 ml 360 ml Labs: Laboratory Tests Test 06/28/20 07:24 06/28/20 16:54 06/28/20 19:11 Glucose (Fingerstick) 114 mg/dL (70-99) H 181 mg/dL (70-99) H 179 mg/dL (70-99) H Current Medications: Meds: Laboratory Tests Test 06/28/20 07:24 06/28/20 16:54 06/28/20 19:11 Glucose (Fingerstick) 114 mg/dL 181 mg/dL 179 mg/dL Current Medications Medications (Trade) Dose Ordered Sig/Alexx Route PRN Reason Start Time Stop Time Status Last Admin Dose Admin Acetaminophen (Tylenol) 650 mg PRN Q6HRS PRN PO MILD PAIN / TEMP > 100.3'F 06/16/20 20:30 06/25/20 18:24 Multi-Ingredient Ointment (Analgesic [place]) 1 rocio PRN QID PRN TP MUSCLE PAIN 06/16/20 20:30 Al Hydroxide/Mg Hydroxide (Mylanta Plus Xs) 15 ml PRN AFTMEALHC PRN PO DYSPEPSIA 06/16/20 20:30 Magnesium Hydroxide (Milk Of Magnesia) 2,400 mg PRN QHS PRN PO CONSTIPATION 06/16/20 20:30 Apixaban (Eliquis) 5 mg BID PO 06/16/20 21:00 06/28/20 20:38 Aspirin (Aspirin Enteric Coated) 81 mg DAILY PO 06/17/20 09:00 06/28/20 08:50 Divalproex Sodium (Depakote Sprinkles) 125 mg TID PO 06/16/20 21:30 06/17/20 11:56 DC 06/17/20 08:17 Gabapentin (Neurontin) 100 mg BID PO 06/16/20 21:30 06/28/20 20:38 Acetaminophen/ Hydrocodone Bitart (Lortab 5/325) 1 tab PRN Q4HRS PRN PO MOD-SEV PAIN 06/16/20 21:00 Linagliptin (Tradjenta) 5 mg DAILY PO 06/17/20 09:00 06/28/20 08:49 Melatonin (Melatonin) 3 mg HS PO 06/16/20 21:30 06/28/20 20:38 Metformin HCl (Glucophage) 750 mg BIDWMEALS PO 06/17/20 08:00 06/28/20 17:03 Metoprolol Succinate (Toprol Xl) 25 mg DAILY PO 06/17/20 09:00 06/20/20 16:14 DC 06/20/20 08:29 Nicotine (Nicoderm Cq 14mg Patch) 1 patch DAILY TD 06/17/20 09:00 06/28/20 08:48 Quetiapine Fumarate (SEROquel) 50 mg BID PO 06/16/20 21:30 06/17/20 11:56 DC 06/17/20 08:16 Atorvastatin Calcium (Lipitor) 40 mg QHS PO 06/16/20 21:30 06/28/20 20:38 Cyanocobalamin (Vitamin B-12) 500 mcg DAILY PO 06/17/20 09:00 06/28/20 08:49 Insulin Glargine (Lantus Syringe) 35 unit DAILY SQ 06/17/20 09:00 06/28/20 09:32 Lactobacillus Rhamnosus (Culturelle) 1 cap DAILY PO 06/17/20 09:00 06/28/20 08:49 Multivitamins/ Calcium (Thera-M Plus) 1 tab DAILY PO 06/17/20 09:00 06/28/20 08:50 Pantoprazole Sodium (Protonix) 40 mg DAILY PO 06/17/20 09:00 06/28/20 08:49 Vitamin D (Vitamin D3) 500 unit DAILY PO 06/17/20 09:00 06/28/20 08:49 Insulin Human Lispro (HumaLOG) 0-5 UNITS TIDWMEALS SQ 06/17/20 08:00 06/17/20 12:18 Dextrose (Dextrose 50%-Water Syringe) 12.5 gm PRN Q15MIN PRN IV SEE COMMENTS 06/16/20 21:00 Olanzapine (ZyPREXA ZYDIS) 2.5 mg PRN Q2HRS PRN PO PSYCHOSIS/Agitation 06/16/20 21:15 06/18/20 18:00 DC 06/18/20 08:45 Divalproex Sodium (Depakote Sprinkles) 250 mg TID PO 06/17/20 14:00 06/20/20 18:07 DC 06/20/20 13:04 Quetiapine Fumarate (SEROquel) 150 mg HS PO 06/17/20 21:00 06/21/20 17:15 DC 06/20/20 20:53 Quetiapine Fumarate (SEROquel) 25 mg PRN Q4HRS PRN PO AGITATION 06/18/20 10:00 06/28/20 12:23 Trimethoprim/ Sulfamethoxazole (Bactrim Ss) 1 tab BID PO 06/20/20 21:00 06/28/20 21:00 06/28/20 20:39 Metoprolol Succinate (Toprol Xl) 50 mg DAILY PO 06/21/20 09:00 06/28/20 08:49 Divalproex Sodium (Depakote Sprinkles) 500 mg 0900,1700 PO 06/21/20 09:00 06/24/20 17:10 DC 06/24/20 08:43 Risperidone (RisperDAL) 0.5 mg BID PO 06/21/20 21:00 06/28/20 20:38 Hydralazine HCl (Apresoline) 25 mg PRN TID PRN PO anxiety 06/21/20 17:30 06/28/20 11:51 DC 06/27/20 15:50 Divalproex Sodium (Depakote Sprinkles) 500 mg 0900 PO 06/25/20 09:00 06/28/20 08:49 Divalproex Sodium (Depakote Sprinkles) 750 mg HS PO 06/24/20 21:00 06/28/20 20:38 Hydroxyzine HCl (Atarax) 25 mg PRN TID PRN PO ANXIETY / AGITATION 06/28/20 12:00 I have reviewed the current psychotropics carefully including drug interactions. Risk benefit ratio favors no change other than as noted in my dictated progress note. Diagnosis: Problems: (1) Schizoaffective disorder, bipolar type (2) Impulse control disorder, unspecified (3) Anxiety disorder, unspecified (4) Bipolar disorder, curr episode mixed, severe, with psychotic features CHAVO WANG MD Jun 28, 2020 20:50
[2020-06-29 06:19] VITALS: BP 115/66
[2020-06-29] MEDS: INSULIN LISPRO 300 UNITS/3 ML VIAL. SQ SCH ×3 (08:00→17:00)
[2020-06-29] MEDS: CYANOCOBALAMIN (VITAMIN B-12) 250 MCG TABLET. PO SCH (08:11)
[2020-06-29] MEDS: DIVALPROEX 125 MG CAP.SPRINK PO SCH ×2 (08:11→19:57)
[2020-06-29] MEDS: risperiDONE 0.5 MG TABLET. PO SCH ×2 (08:11→19:57)
[2020-06-29] MEDS: NICOTINE 14MG PATCH. TD SCH (08:11)
[2020-06-29] MEDS: LINAGLIPTIN 5 MG TABLET PO SCH (08:11)
[2020-06-29] MEDS: CHOLECALCIFEROL (VITAMIN D3) 1,000 UNIT TABLET PO SCH (08:11)
[2020-06-29] MEDS: APIXABAN 5 MG TABLET. PO SCH ×2 (08:11→19:57)
[2020-06-29] MEDS: GABAPENTIN 100 MG CAPSULE. PO SCH ×2 (08:12→19:57)
[2020-06-29] MEDS: LACTOBACILLUS RHAMNOSUS GG 1 CAPSULE. PO SCH (08:12)
[2020-06-29] MEDS: metFORMIN 500 MG TABLET PO SCH ×2 (08:12→17:24)
[2020-06-29] MEDS: ASPIRIN ENTERIC COATED 81 MG TABLET.DR. PO SCH (08:12)
[2020-06-29] MEDS: MULTIVITAMIN with MINERAL TABLET. PO SCH (08:12)
[2020-06-29] MEDS: PANTOPRAZOLE 40 MG TABLET. PO SCH (08:12)
[2020-06-29] MEDS: METOPROLOL SUCC 24HR ER 50 MG TAB.ER.24H. PO SCH (08:12)
--- NOTE | 2020-06-29 08:52 | PDOC ---
Exam Note: Edgar Note: This note is a late entry for 06/27/2020 covers elements not covered in my initial note. Subjective: The patient was seen face to face in the evening of 06/27/2020 with Treasure MELGAR. Discussed with nursing staff, reviewed the chart. She slept 6-1/4 hours previous night. The patient had one episode of yelling, otherwise, done better. She had one episode of urinary incontinence as well. Received Seroquel for anxiety and her heart rate was 124 at that time. Valproic acid level is 66, therapeutic. Review of Systems: Ambulation impaired. No CV, , pulmonary, eye system symptoms on review. She does complain of some discomfort at times. Mental Status Exam: The patient is reasonably oriented. Speech is coherent, less pressured. Abstraction is fair. Computation is impaired. Language function is intact. Overall mood is better. Over the weekend she had some mood lability, but since then she has shown gradual stabilization of her mood. Attention span is short. No suicidal or homicidal ideation. Laboratory Data: Reviewed. Impression: Schizoaffective disorder bipolar type, mixed versus bipolar disorder mixed with psychotic features. Anxiety disorder unspecified. Impulse control disorder unspecified. Plan: No change from initial note. Additionally her valproic acid level is therapeutic at 66. Also discussed with Iraida Wills, social service staff about [facility] plans [facility]. Assessment: Vital Signs/I&O: Vital Signs Date Time Temp Pulse Resp B/P (MAP) Pulse Ox O2 Delivery O2 Flow Rate FiO2 06/29/20 08:12 84 115/66 06/29/20 06:19 97.6 19 96 Room Air I & O 06/28/20 06/28/20 06/29/20 15:00 23:00 07:00 Intake Total 840 ml 480 ml Balance 840 ml 480 ml Labs: Laboratory Tests Test 06/28/20 16:54 06/28/20 19:11 06/29/20 07:31 Glucose (Fingerstick) 181 mg/dL (70-99) H 179 mg/dL (70-99) H 87 mg/dL (70-99) Current Medications: Meds: Laboratory Tests Test 06/28/20 16:54 06/28/20 19:11 06/29/20 07:31 Glucose (Fingerstick) 181 mg/dL 179 mg/dL 87 mg/dL Current Medications Medications (Trade) Dose Ordered Sig/Alexx Route PRN Reason Start Time Stop Time Status Last Admin Dose Admin Acetaminophen (Tylenol) 650 mg PRN Q6HRS PRN PO MILD PAIN / TEMP > 100.3'F 06/16/20 20:30 06/25/20 18:24 Multi-Ingredient Ointment (Analgesic [place]) 1 rocio PRN QID PRN TP MUSCLE PAIN 06/16/20 20:30 Al Hydroxide/Mg Hydroxide (Mylanta Plus Xs) 15 ml PRN AFTMEALHC PRN PO DYSPEPSIA 06/16/20 20:30 Magnesium Hydroxide (Milk Of Magnesia) 2,400 mg PRN QHS PRN PO CONSTIPATION 06/16/20 20:30 Apixaban (Eliquis) 5 mg BID PO 06/16/20 21:00 06/29/20 08:11 Aspirin (Aspirin Enteric Coated) 81 mg DAILY PO 06/17/20 09:00 06/29/20 08:12 Divalproex Sodium (Depakote Sprinkles) 125 mg TID PO 06/16/20 21:30 06/17/20 11:56 DC 06/17/20 08:17 Gabapentin (Neurontin) 100 mg BID PO 06/16/20 21:30 06/29/20 08:12 Acetaminophen/ Hydrocodone Bitart (Lortab 5/325) 1 tab PRN Q4HRS PRN PO MOD-SEV PAIN 06/16/20 21:00 Linagliptin (Tradjenta) 5 mg DAILY PO 06/17/20 09:00 06/29/20 08:11 Melatonin (Melatonin) 3 mg HS PO 06/16/20 21:30 06/28/20 20:38 Metformin HCl (Glucophage) 750 mg BIDWMEALS PO 06/17/20 08:00 06/29/20 08:12 Metoprolol Succinate (Toprol Xl) 25 mg DAILY PO 06/17/20 09:00 06/20/20 16:14 DC 06/20/20 08:29 Nicotine (Nicoderm Cq 14mg Patch) 1 patch DAILY TD 06/17/20 09:00 06/29/20 08:11 Quetiapine Fumarate (SEROquel) 50 mg BID PO 06/16/20 21:30 06/17/20 11:56 DC 06/17/20 08:16 Atorvastatin Calcium (Lipitor) 40 mg QHS PO 06/16/20 21:30 06/28/20 20:38 Cyanocobalamin (Vitamin B-12) 500 mcg DAILY PO 06/17/20 09:00 06/29/20 08:11 Insulin Glargine (Lantus Syringe) 35 unit DAILY SQ 06/17/20 09:00 06/28/20 09:32 Lactobacillus Rhamnosus (Culturelle) 1 cap DAILY PO 06/17/20 09:00 06/29/20 08:12 Multivitamins/ Calcium (Thera-M Plus) 1 tab DAILY PO 06/17/20 09:00 06/29/20 08:12 Pantoprazole Sodium (Protonix) 40 mg DAILY PO 06/17/20 09:00 06/29/20 08:12 Vitamin D (Vitamin D3) 500 unit DAILY PO 06/17/20 09:00 06/29/20 08:11 Insulin Human Lispro (HumaLOG) 0-5 UNITS TIDWMEALS SQ 06/17/20 08:00 06/17/20 12:18 Dextrose (Dextrose 50%-Water Syringe) 12.5 gm PRN Q15MIN PRN IV SEE COMMENTS 06/16/20 21:00 Olanzapine (ZyPREXA ZYDIS) 2.5 mg PRN Q2HRS PRN PO PSYCHOSIS/Agitation 06/16/20 21:15 06/18/20 18:00 DC 06/18/20 08:45 Divalproex Sodium (Depakote Sprinkles) 250 mg TID PO 06/17/20 14:00 06/20/20 18:07 DC 06/20/20 13:04 Quetiapine Fumarate (SEROquel) 150 mg HS PO 06/17/20 21:00 06/21/20 17:15 DC 06/20/20 20:53 Quetiapine Fumarate (SEROquel) 25 mg PRN Q4HRS PRN PO AGITATION 06/18/20 10:00 06/28/20 12:23 Trimethoprim/ Sulfamethoxazole (Bactrim Ss) 1 tab BID PO 06/20/20 21:00 06/28/20 21:00 DC 06/28/20 20:39 Metoprolol Succinate (Toprol Xl) 50 mg DAILY PO 06/21/20 09:00 06/29/20 08:12 Divalproex Sodium (Depakote Sprinkles) 500 mg 0900,1700 PO 06/21/20 09:00 06/24/20 17:10 DC 06/24/20 08:43 Risperidone (RisperDAL) 0.5 mg BID PO 06/21/20 21:00 06/29/20 08:11 Hydralazine HCl (Apresoline) 25 mg PRN TID PRN PO anxiety 06/21/20 17:30 06/28/20 11:51 DC 06/27/20 15:50 Divalproex Sodium (Depakote Sprinkles) 500 mg 0900 PO 06/25/20 09:00 06/29/20 08:11 Divalproex Sodium (Depakote Sprinkles) 750 mg HS PO 06/24/20 21:00 06/28/20 20:38 Hydroxyzine HCl (Atarax) 25 mg PRN TID PRN PO ANXIETY / AGITATION 06/28/20 12:00 I have reviewed the current psychotropics carefully including drug interactions. Risk benefit ratio favors no change other than as noted in my dictated progress note. Diagnosis: Problems: (1) Schizoaffective disorder, bipolar type (2) Impulse control disorder, unspecified (3) Anxiety disorder, unspecified (4) Bipolar disorder, curr episode mixed, severe, with psychotic features CHAVO WANG MD Jun 29, 2020 08:52
--- NOTE | 2020-06-29 09:12 | PDOC ---
Exam Note: Edgar Note: This note is a late entry for 06/28/2020 covers elements not covered in my initial note. Subjective: The patient was seen face to face in the evening of 06/28/2020 with Treasure MELGAR. Discussed with nursing staff, reviewed the chart. She slept 6-3/4 hours previous night. Overall the patient has been fairly cooperative, alittle anxious, restless, labile in her mood in the evening. Review of Systems: Ambulation impaired in wheelchair. 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 No CV, , pulmonary, eye system symptoms on review. Mental Status Exam: The patient is reasonably oriented. She is pleasant, verbal, alittle paranoid. Speech is coherent, less pressured. Abstraction is fair. Computation is impaired. Language function is intact. Attention span is short. Mood and affect much less labile. No suicidal or homicidal ideation. Laboratory Data: Reviewed. Valproic acid level is therapeutic at 66. Impression: Schizoaffective disorder bipolar type, mixed versus bipolar disorder mixed with psychotic features. Anxiety disorder unspecified. Impulse control disorder unspecified. Plan: No change from initial note. Assessment: Vital Signs/I&O: Vital Signs Date Time Temp Pulse Resp B/P (MAP) Pulse Ox O2 Delivery O2 Flow Rate FiO2 06/29/20 08:12 84 115/66 06/29/20 06:19 97.6 19 96 Room Air I & O 06/28/20 06/28/20 06/29/20 15:00 23:00 07:00 Intake Total 840 ml 480 ml Balance 840 ml 480 ml Labs: Laboratory Tests Test 06/28/20 16:54 06/28/20 19:11 06/29/20 07:31 Glucose (Fingerstick) 181 mg/dL (70-99) H 179 mg/dL (70-99) H 87 mg/dL (70-99) Current Medications: Meds: Laboratory Tests Test 06/28/20 16:54 06/28/20 19:11 06/29/20 07:31 Glucose (Fingerstick) 181 mg/dL 179 mg/dL 87 mg/dL Current Medications Medications (Trade) Dose Ordered Sig/Alexx Route PRN Reason Start Time Stop Time Status Last Admin Dose Admin Acetaminophen (Tylenol) 650 mg PRN Q6HRS PRN PO MILD PAIN / TEMP > 100.3'F 1/15/21 20:30 06/25/20 18:24 Multi-Ingredient Ointment (Analgesic [place]) 1 rocio PRN QID PRN TP MUSCLE PAIN 06/16/20 20:30 Al Hydroxide/Mg Hydroxide (Mylanta Plus Xs) 15 ml PRN AFTMEALHC PRN PO DYSPEPSIA 06/16/20 20:30 Magnesium Hydroxide (Milk Of Magnesia) 2,400 mg PRN QHS PRN PO CONSTIPATION 06/16/20 20:30 Apixaban (Eliquis) 5 mg BID PO 06/16/20 21:00 06/29/20 08:11 Aspirin (Aspirin Enteric Coated) 81 mg DAILY PO 06/17/20 09:00 06/29/20 08:12 Divalproex Sodium (Depakote Sprinkles) 125 mg TID PO 06/16/20 21:30 06/17/20 11:56 DC 06/17/20 08:17 Gabapentin (Neurontin) 100 mg BID PO 06/16/20 21:30 06/29/20 08:12 Acetaminophen/ Hydrocodone Bitart (Lortab 5/325) 1 tab PRN Q4HRS PRN PO MOD-SEV PAIN 06/16/20 21:00 Linagliptin (Tradjenta) 5 mg DAILY PO 06/17/20 09:00 06/29/20 08:11 Melatonin (Melatonin) 3 mg HS PO 06/16/20 21:30 06/28/20 20:38 Metformin HCl (Glucophage) 750 mg BIDWMEALS PO 06/17/20 08:00 06/29/20 08:12 Metoprolol Succinate (Toprol Xl) 25 mg DAILY PO 06/17/20 09:00 06/20/20 16:14 DC 06/20/20 08:29 Nicotine (Nicoderm Cq 14mg Patch) 1 patch DAILY TD 06/17/20 09:00 06/29/20 08:11 Quetiapine Fumarate (SEROquel) 50 mg BID PO 06/16/20 21:30 06/17/20 11:56 DC 06/17/20 08:16 Atorvastatin Calcium (Lipitor) 40 mg QHS PO 06/16/20 21:30 06/28/20 20:38 Cyanocobalamin (Vitamin B-12) 500 mcg DAILY PO 06/17/20 09:00 06/29/20 08:11 Insulin Glargine (Lantus Syringe) 35 unit DAILY SQ 06/17/20 09:00 06/28/20 09:32 Lactobacillus Rhamnosus (Culturelle) 1 cap DAILY PO 06/17/20 09:00 06/29/20 08:12 Multivitamins/ Calcium (Thera-M Plus) 1 tab DAILY PO 06/17/20 09:00 06/29/20 08:12 Pantoprazole Sodium (Protonix) 40 mg DAILY PO 06/17/20 09:00 06/29/20 08:12 Vitamin D (Vitamin D3) 500 unit DAILY PO 06/17/20 09:00 06/29/20 08:11 Insulin Human Lispro (HumaLOG) 0-5 UNITS TIDWMEALS SQ 06/17/20 08:00 06/17/20 12:18 Dextrose (Dextrose 50%-Water Syringe) 12.5 gm PRN Q15MIN PRN IV SEE COMMENTS 06/16/20 21:00 Olanzapine (ZyPREXA ZYDIS) 2.5 mg PRN Q2HRS PRN PO PSYCHOSIS/Agitation 06/16/20 21:15 06/18/20 18:00 DC 06/18/20 08:45 Divalproex Sodium (Depakote Sprinkles) 250 mg TID PO 06/17/20 14:00 06/20/20 18:07 DC 06/20/20 13:04 Quetiapine Fumarate (SEROquel) 150 mg HS PO 06/17/20 21:00 06/21/20 17:15 DC 06/20/20 20:53 Quetiapine Fumarate (SEROquel) 25 mg PRN Q4HRS PRN PO AGITATION 06/18/20 10:00 06/28/20 12:23 Trimethoprim/ Sulfamethoxazole (Bactrim Ss) 1 tab BID PO 06/20/20 21:00 06/28/20 21:00 DC 06/28/20 20:39 Metoprolol Succinate (Toprol Xl) 50 mg DAILY PO 06/21/20 09:00 06/29/20 08:12 Divalproex Sodium (Depakote Sprinkles) 500 mg 0900,1700 PO 06/21/20 09:00 06/24/20 17:10 DC 06/24/20 08:43 Risperidone (RisperDAL) 0.5 mg BID PO 06/21/20 21:00 06/29/20 08:11 Hydralazine HCl (Apresoline) 25 mg PRN TID PRN PO anxiety 06/21/20 17:30 06/28/20 11:51 DC 06/27/20 15:50 Divalproex Sodium (Depakote Sprinkles) 500 mg 0900 PO 06/25/20 09:00 06/29/20 08:11 Divalproex Sodium (Depakote Sprinkles) 750 mg HS PO 06/24/20 21:00 06/28/20 20:38 Hydroxyzine HCl (Atarax) 25 mg PRN TID PRN PO ANXIETY / AGITATION 06/28/20 12:00 I have reviewed the current psychotropics carefully including drug interactions. Risk benefit ratio favors no change other than as noted in my dictated progress note. Diagnosis: Problems: (1) Schizoaffective disorder, bipolar type (2) Impulse control disorder, unspecified (3) Anxiety disorder, unspecified (4) Bipolar disorder, curr episode mixed, severe, with psychotic features CHAVO WANG MD Jun 29, 2020 09:12
[2020-06-29] MEDS: INSULIN GLARGINE SYRINGE. SQ SCH (10:38)
[2020-06-29] MEDS: hydrOXYzine HCL 25 MG TABLET PO PRN (14:26)
[2020-06-29 15:37] VITALS: BP 133/77
[2020-06-29] MEDS: MELATONIN 3 MG TABLET PO SCH (19:57)
[2020-06-29] MEDS: ATORVASTATIN CALCIUM 20 MG TABLET PO SCH (19:58)
--- NOTE | 2020-06-29 21:04 | PDOC ---
Exam Note: Edgar Note: Please also refer to the separate dictated note~for this date of service dictated separately.~Patient seen individually. Discussed the patient with Nursing staff reviewed the chart.~Reviewed interim history and current functioning. Reviewed vital signs,~Labs/ Radiology~and current medications noted below. Continue current treatment with the changes noted in the dictated addendum note Assessment: Vital Signs/I&O: Vital Signs Date Time Temp Pulse Resp B/P (MAP) Pulse Ox O2 Delivery O2 Flow Rate FiO2 06/29/20 15:37 97.4 94 16 133/77 (95) 99 06/29/20 06:19 Room Air I & O 06/28/20 06/28/20 06/29/20 15:00 23:00 07:00 Intake Total 840 ml 480 ml Balance 840 ml 480 ml Labs: Laboratory Tests Test 06/29/20 07:31 06/29/20 10:00 06/29/20 11:42 06/29/20 17:13 Glucose (Fingerstick) 87 mg/dL (70-99) 133 mg/dL (70-99) H 124 mg/dL (70-99) H 194 mg/dL (70-99) H Test 06/29/20 19:17 Glucose (Fingerstick) 296 mg/dL (70-99) H Current Medications: Meds: Laboratory Tests Test 06/29/20 07:31 06/29/20 10:00 06/29/20 11:42 06/29/20 17:13 Glucose (Fingerstick) 87 mg/dL 133 mg/dL 124 mg/dL 194 mg/dL Test 06/29/20 19:17 Glucose (Fingerstick) 296 mg/dL Current Medications Medications (Trade) Dose Ordered Sig/Alexx Route PRN Reason Start Time Stop Time Status Last Admin Dose Admin Acetaminophen (Tylenol) 650 mg PRN Q6HRS PRN PO MILD PAIN / TEMP > 100.3'F 06/16/20 20:30 06/25/20 18:24 Multi-Ingredient Ointment (Analgesic [place]) 1 rocio PRN QID PRN TP MUSCLE PAIN 06/16/20 20:30 Al Hydroxide/Mg Hydroxide (Mylanta Plus Xs) 15 ml PRN AFTMEALHC PRN PO DYSPEPSIA 06/16/20 20:30 Magnesium Hydroxide (Milk Of Magnesia) 2,400 mg PRN QHS PRN PO CONSTIPATION 06/16/20 20:30 Apixaban (Eliquis) 5 mg BID PO 06/16/20 21:00 06/29/20 19:57 Aspirin (Aspirin Enteric Coated) 81 mg DAILY PO 06/17/20 09:00 06/29/20 08:12 Divalproex Sodium (Depakote Sprinkles) 125 mg TID PO 06/16/20 21:30 06/17/20 11:56 DC 06/17/20 08:17 Gabapentin (Neurontin) 100 mg BID PO 06/16/20 21:30 06/29/20 19:57 Acetaminophen/ Hydrocodone Bitart (Lortab 5/325) 1 tab PRN Q4HRS PRN PO MOD-SEV PAIN 06/16/20 21:00 Linagliptin (Tradjenta) 5 mg DAILY PO 06/17/20 09:00 06/29/20 08:11 Melatonin (Melatonin) 3 mg HS PO 06/16/20 21:30 06/29/20 19:57 Metformin HCl (Glucophage) 750 mg BIDWMEALS PO 06/17/20 08:00 06/29/20 17:24 Metoprolol Succinate (Toprol Xl) 25 mg DAILY PO 06/17/20 09:00 06/20/20 16:14 DC 06/20/20 08:29 Nicotine (Nicoderm Cq 14mg Patch) 1 patch DAILY TD 06/17/20 09:00 06/29/20 08:11 Quetiapine Fumarate (SEROquel) 50 mg BID PO 06/16/20 21:30 06/17/20 11:56 DC 06/17/20 08:16 Atorvastatin Calcium (Lipitor) 40 mg QHS PO 06/16/20 21:30 06/29/20 19:58 Cyanocobalamin (Vitamin B-12) 500 mcg DAILY PO 06/17/20 09:00 06/29/20 08:11 Insulin Glargine (Lantus Syringe) 35 unit DAILY SQ 06/17/20 09:00 06/29/20 10:38 Lactobacillus Rhamnosus (Culturelle) 1 cap DAILY PO 06/17/20 09:00 06/29/20 08:12 Multivitamins/ Calcium (Thera-M Plus) 1 tab DAILY PO 06/17/20 09:00 06/29/20 08:12 Pantoprazole Sodium (Protonix) 40 mg DAILY PO 06/17/20 09:00 06/29/20 08:12 Vitamin D (Vitamin D3) 500 unit DAILY PO 06/17/20 09:00 06/29/20 08:11 Insulin Human Lispro (HumaLOG) 0-5 UNITS TIDWMEALS SQ 06/17/20 08:00 06/17/20 12:18 Dextrose (Dextrose 50%-Water Syringe) 12.5 gm PRN Q15MIN PRN IV SEE COMMENTS 06/16/20 21:00 Olanzapine (ZyPREXA ZYDIS) 2.5 mg PRN Q2HRS PRN PO PSYCHOSIS/Agitation 06/16/20 21:15 06/18/20 18:00 DC 06/18/20 08:45 Divalproex Sodium (Depakote Sprinkles) 250 mg TID PO 06/17/20 14:00 06/20/20 18:07 DC 06/20/20 13:04 Quetiapine Fumarate (SEROquel) 150 mg HS PO 06/17/20 21:00 06/21/20 17:15 DC 06/20/20 20:53 Quetiapine Fumarate (SEROquel) 25 mg PRN Q4HRS PRN PO AGITATION 06/18/20 10:00 06/28/20 12:23 Trimethoprim/ Sulfamethoxazole (Bactrim Ss) 1 tab BID PO 06/20/20 21:00 06/28/20 21:00 DC 06/28/20 20:39 Metoprolol Succinate (Toprol Xl) 50 mg DAILY PO 06/21/20 09:00 06/29/20 08:12 Divalproex Sodium (Depakote Sprinkles) 500 mg 0900,1700 PO 06/21/20 09:00 06/24/20 17:10 DC 06/24/20 08:43 Risperidone (RisperDAL) 0.5 mg BID PO 06/21/20 21:00 06/29/20 19:57 Hydralazine HCl (Apresoline) 25 mg PRN TID PRN PO anxiety 06/21/20 17:30 06/28/20 11:51 DC 06/27/20 15:50 Divalproex Sodium (Depakote Sprinkles) 500 mg 0900 PO 06/25/20 09:00 06/29/20 08:11 Divalproex Sodium (Depakote Sprinkles) 750 mg HS PO 06/24/20 21:00 06/29/20 19:57 Hydroxyzine HCl (Atarax) 25 mg PRN TID PRN PO ANXIETY / AGITATION 06/28/20 12:00 06/29/20 14:26 I have reviewed the current psychotropics carefully including drug interactions. Risk benefit ratio favors no change other than as noted in my dictated progress note. Diagnosis: Problems: (1) Schizoaffective disorder, bipolar type (2) Impulse control disorder, unspecified (3) Anxiety disorder, unspecified (4) Bipolar disorder, curr episode mixed, severe, with psychotic features CHAVO WANG MD Jun 29, 2020 21:04
[2020-06-29] MEDS ORDERED: ACET325T21 PO (23:32)
[2020-06-29] MEDS ORDERED: DIVA125C2 PO (23:35)
[2020-06-29] MEDS ORDERED: MAG-83 PO (23:38)
[2020-06-29] MEDS ORDERED: MAGN24003 PO (23:38)
[2020-06-29] MEDS ORDERED: METH28OI2 TP (23:39)
[2020-06-29] MEDS ORDERED: RISP0.5T62 PO (23:40)
[2020-06-29] MEDS ORDERED: HYDR25TA PO (23:40)
[2020-06-30 06:04] VITALS: BP 145/74
--- NOTE | 2020-06-30 07:31 | PDOC ---
Exam Note: Edgar Note: This note is a late entry for 06/29/2020 covers elements not covered in my initial note. Subjective: The patient was seen face to face in the evening of 06/29/2020 with Treasure MELGAR. Discussed with nursing staff, reviewed the chart. She slept 4-3/4 hours previous night. The patients contact precautions have been discontinued. She has been less agitated, less labile in her mood. I met with her at some length and discussed discharge for 06/30. Review of Systems: Ambulation impaired in wheelchair. No CV, , pulmonary, eye system symptoms on review. Mental Status Exam: The patient is reasonably oriented. Speech is coherent, less pressured. Abstraction is fair. Computation is impaired. Language function is intact. Attention span is short. Mood and affect remains improved, less labile. Laboratory Data: Reviewed. Impression: Schizoaffective disorder bipolar type, mixed versus bipolar disorder mixed with psychotic features. Anxiety disorder unspecified. Impulse control disorder unspecified. Plan: No change from initial note. Transition back to [facility] 06/30/2020. Assessment: Vital Signs/I&O: Vital Signs Date Time Temp Pulse Resp B/P (MAP) Pulse Ox O2 Delivery O2 Flow Rate FiO2 06/30/20 06:04 97.0 83 18 145/74 (97) 97 Room Air I & O 06/29/20 06/29/20 06/30/20 15:00 23:00 07:00 Intake Total 840 ml 360 ml Balance 840 ml 360 ml Labs: Laboratory Tests Test 06/29/20 07:31 06/29/20 10:00 06/29/20 11:42 06/29/20 17:13 Glucose (Fingerstick) 87 mg/dL (70-99) 133 mg/dL (70-99) H 124 mg/dL (70-99) H 194 mg/dL (70-99) H Test 06/29/20 19:17 Glucose (Fingerstick) 296 mg/dL (70-99) H Current Medications: Meds: Laboratory Tests Test 06/29/20 07:31 06/29/20 10:00 06/29/20 11:42 06/29/20 17:13 Glucose (Fingerstick) 87 mg/dL 133 mg/dL 124 mg/dL 194 mg/dL Test 06/29/20 19:17 Glucose (Fingerstick) 296 mg/dL Current Medications Medications (Trade) Dose Ordered Sig/Alexx Route PRN Reason Start Time Stop Time Status Last Admin Dose Admin Acetaminophen (Tylenol) 650 mg PRN Q6HRS PRN PO MILD PAIN / TEMP > 100.3'F 06/16/20 20:30 06/25/20 18:24 Multi-Ingredient Ointment (Analgesic [place]) 1 rocio PRN QID PRN TP MUSCLE PAIN 06/16/20 20:30 Al Hydroxide/Mg Hydroxide (Mylanta Plus Xs) 15 ml PRN AFTMEALHC PRN PO DYSPEPSIA 06/16/20 20:30 Magnesium Hydroxide (Milk Of Magnesia) 2,400 mg PRN QHS PRN PO CONSTIPATION 06/16/20 20:30 Apixaban (Eliquis) 5 mg BID PO 06/16/20 21:00 06/29/20 19:57 Aspirin (Aspirin Enteric Coated) 81 mg DAILY PO 06/17/20 09:00 06/29/20 08:12 Divalproex Sodium (Depakote Sprinkles) 125 mg TID PO 06/16/20 21:30 06/17/20 11:56 DC 06/17/20 08:17 Gabapentin (Neurontin) 100 mg BID PO 06/16/20 21:30 06/29/20 19:57 Acetaminophen/ Hydrocodone Bitart (Lortab 5/325) 1 tab PRN Q4HRS PRN PO MOD-SEV PAIN 06/16/20 21:00 Linagliptin (Tradjenta) 5 mg DAILY PO 06/17/20 09:00 06/29/20 08:11 Melatonin (Melatonin) 3 mg HS PO 06/16/20 21:30 06/29/20 19:57 Metformin HCl (Glucophage) 750 mg BIDWMEALS PO 06/17/20 08:00 06/29/20 17:24 Metoprolol Succinate (Toprol Xl) 25 mg DAILY PO 06/17/20 09:00 06/20/20 16:14 DC 06/20/20 08:29 Nicotine (Nicoderm Cq 14mg Patch) 1 patch DAILY TD 06/17/20 09:00 06/29/20 08:11 Quetiapine Fumarate (SEROquel) 50 mg BID PO 06/16/20 21:30 06/17/20 11:56 DC 06/17/20 08:16 Atorvastatin Calcium (Lipitor) 40 mg QHS PO 06/16/20 21:30 06/29/20 19:58 Cyanocobalamin (Vitamin B-12) 500 mcg DAILY PO 06/17/20 09:00 06/29/20 08:11 Insulin Glargine (Lantus Syringe) 35 unit DAILY SQ 06/17/20 09:00 06/29/20 10:38 Lactobacillus Rhamnosus (Culturelle) 1 cap DAILY PO 06/17/20 09:00 06/29/20 08:12 Multivitamins/ Calcium (Thera-M Plus) 1 tab DAILY PO 06/17/20 09:00 06/29/20 08:12 Pantoprazole Sodium (Protonix) 40 mg DAILY PO 06/17/20 09:00 06/29/20 08:12 Vitamin D (Vitamin D3) 500 unit DAILY PO 06/17/20 09:00 06/29/20 08:11 Insulin Human Lispro (HumaLOG) 0-5 UNITS TIDWMEALS SQ 06/17/20 08:00 06/17/20 12:18 Dextrose (Dextrose 50%-Water Syringe) 12.5 gm PRN Q15MIN PRN IV SEE COMMENTS 06/16/20 21:00 Olanzapine (ZyPREXA ZYDIS) 2.5 mg PRN Q2HRS PRN PO PSYCHOSIS/Agitation 06/16/20 21:15 06/18/20 18:00 DC 06/18/20 08:45 Divalproex Sodium (Depakote Sprinkles) 250 mg TID PO 06/17/20 14:00 06/20/20 18:07 DC 06/20/20 13:04 Quetiapine Fumarate (SEROquel) 150 mg HS PO 06/17/20 21:00 06/21/20 17:15 DC 06/20/20 20:53 Quetiapine Fumarate (SEROquel) 25 mg PRN Q4HRS PRN PO AGITATION 06/18/20 10:00 06/28/20 12:23 Trimethoprim/ Sulfamethoxazole (Bactrim Ss) 1 tab BID PO 06/20/20 21:00 06/28/20 21:00 DC 06/28/20 20:39 Metoprolol Succinate (Toprol Xl) 50 mg DAILY PO 06/21/20 09:00 06/29/20 08:12 Divalproex Sodium (Depakote Sprinkles) 500 mg 0900,1700 PO 06/21/20 09:00 06/24/20 17:10 DC 06/24/20 08:43 Risperidone (RisperDAL) 0.5 mg BID PO 06/21/20 21:00 06/29/20 19:57 Hydralazine HCl (Apresoline) 25 mg PRN TID PRN PO anxiety 06/21/20 17:30 06/28/20 11:51 DC 06/27/20 15:50 Divalproex Sodium (Depakote Sprinkles) 500 mg 0900 PO 06/25/20 09:00 06/29/20 08:11 Divalproex Sodium (Depakote Sprinkles) 750 mg HS PO 06/24/20 21:00 06/29/20 19:57 Hydroxyzine HCl (Atarax) 25 mg PRN TID PRN PO ANXIETY / AGITATION 06/28/20 12:00 06/29/20 14:26 I have reviewed the current psychotropics carefully including drug interactions. Risk benefit ratio favors no change other than as noted in my dictated progress note. Diagnosis: Problems: (1) Schizoaffective disorder, bipolar type (2) Impulse control disorder, unspecified (3) Anxiety disorder, unspecified (4) Bipolar disorder, curr episode mixed, severe, with psychotic features CHAVO WANG MD Jun 30, 2020 07:31
[2020-06-30] MEDS: INSULIN LISPRO 300 UNITS/3 ML VIAL. SQ SCH ×3 (08:00→16:55)
[2020-06-30] MEDS: APIXABAN 5 MG TABLET. PO SCH ×2 (08:32→20:56)
[2020-06-30] MEDS: DIVALPROEX 125 MG CAP.SPRINK PO SCH ×2 (08:32→20:57)
[2020-06-30] MEDS: LINAGLIPTIN 5 MG TABLET PO SCH (08:32)
[2020-06-30] MEDS: NICOTINE 14MG PATCH. TD SCH (08:32)
[2020-06-30] MEDS: CHOLECALCIFEROL (VITAMIN D3) 1,000 UNIT TABLET PO SCH (08:33)
[2020-06-30] MEDS: ASPIRIN ENTERIC COATED 81 MG TABLET.DR. PO SCH (08:33)
[2020-06-30] MEDS: risperiDONE 0.5 MG TABLET. PO SCH ×2 (08:33→20:57)
[2020-06-30] MEDS: METOPROLOL SUCC 24HR ER 50 MG TAB.ER.24H. PO SCH (08:33)
[2020-06-30] MEDS: PANTOPRAZOLE 40 MG TABLET. PO SCH (08:33)
[2020-06-30] MEDS: LACTOBACILLUS RHAMNOSUS GG 1 CAPSULE. PO SCH (08:33)
[2020-06-30] MEDS: metFORMIN 500 MG TABLET PO SCH ×2 (08:34→16:55)
[2020-06-30] MEDS: GABAPENTIN 100 MG CAPSULE. PO SCH ×2 (08:34→20:56)
[2020-06-30] MEDS: CYANOCOBALAMIN (VITAMIN B-12) 250 MCG TABLET. PO SCH (08:34)
[2020-06-30] MEDS: MULTIVITAMIN with MINERAL TABLET. PO SCH (08:34)
[2020-06-30] MEDS: INSULIN GLARGINE SYRINGE. SQ SCH (09:12)
[2020-06-30 16:10] VITALS: BP 132/73
[2020-06-30] MEDS: ATORVASTATIN CALCIUM 20 MG TABLET PO SCH (20:57)
[2020-06-30] MEDS: MELATONIN 3 MG TABLET PO SCH (20:57)
--- NOTE | 2020-06-30 21:06 | PDOC ---
Exam Note: Edgar Note: Please also refer to the separate dictated note~for this date of service dictated separately.~Patient seen individually. Discussed the patient with Nursing staff reviewed the chart.~Reviewed interim history and current functioning. Reviewed vital signs,~Labs/ Radiology~and current medications noted below. Continue current treatment with the changes noted in the dictated addendum note Assessment: Vital Signs/I&O: Vital Signs Date Time Temp Pulse Resp B/P (MAP) Pulse Ox O2 Delivery O2 Flow Rate FiO2 06/30/20 16:10 97.6 78 20 132/73 (92) 98 Room Air I & O 06/29/20 06/29/20 06/30/20 15:00 23:00 07:00 Intake Total 840 ml 360 ml Balance 840 ml 360 ml Labs: Laboratory Tests Test 06/30/20 07:33 06/30/20 11:45 06/30/20 16:35 06/30/20 19:05 Glucose (Fingerstick) 115 mg/dL (70-99) H 125 mg/dL (70-99) H 162 mg/dL (70-99) H 155 mg/dL (70-99) H Current Medications: Meds: Laboratory Tests Test 06/30/20 07:33 06/30/20 11:45 06/30/20 16:35 06/30/20 19:05 Glucose (Fingerstick) 115 mg/dL 125 mg/dL 162 mg/dL 155 mg/dL Current Medications Medications (Trade) Dose Ordered Sig/Alexx Route PRN Reason Start Time Stop Time Status Last Admin Dose Admin Acetaminophen (Tylenol) 650 mg PRN Q6HRS PRN PO MILD PAIN / TEMP > 100.3'F 06/16/20 20:30 06/25/20 18:24 Multi-Ingredient Ointment (Analgesic [place]) 1 rocio PRN QID PRN TP MUSCLE PAIN 06/16/20 20:30 Al Hydroxide/Mg Hydroxide (Mylanta Plus Xs) 15 ml PRN AFTMEALHC PRN PO DYSPEPSIA 06/16/20 20:30 Magnesium Hydroxide (Milk Of Magnesia) 2,400 mg PRN QHS PRN PO CONSTIPATION 06/16/20 20:30 Apixaban (Eliquis) 5 mg BID PO 06/16/20 21:00 06/30/20 20:56 Aspirin (Aspirin Enteric Coated) 81 mg DAILY PO 06/17/20 09:00 06/30/20 08:33 Divalproex Sodium (Depakote Sprinkles) 125 mg TID PO 06/16/20 21:30 06/17/20 11:56 DC 06/17/20 08:17 Gabapentin (Neurontin) 100 mg BID PO 06/16/20 21:30 06/30/20 20:56 Acetaminophen/ Hydrocodone Bitart (Lortab 5/325) 1 tab PRN Q4HRS PRN PO MOD-SEV PAIN 06/16/20 21:00 Linagliptin (Tradjenta) 5 mg DAILY PO 06/17/20 09:00 06/30/20 08:32 Melatonin (Melatonin) 3 mg HS PO 06/16/20 21:30 06/30/20 20:57 Metformin HCl (Glucophage) 750 mg BIDWMEALS PO 06/17/20 08:00 06/30/20 16:55 Metoprolol Succinate (Toprol Xl) 25 mg DAILY PO 06/17/20 09:00 06/20/20 16:14 DC 06/20/20 08:29 Nicotine (Nicoderm Cq 14mg Patch) 1 patch DAILY TD 06/17/20 09:00 06/30/20 08:32 Quetiapine Fumarate (SEROquel) 50 mg BID PO 06/16/20 21:30 06/17/20 11:56 DC 06/17/20 08:16 Atorvastatin Calcium (Lipitor) 40 mg QHS PO 06/16/20 21:30 06/30/20 20:57 Cyanocobalamin (Vitamin B-12) 500 mcg DAILY PO 06/17/20 09:00 06/30/20 08:34 Insulin Glargine (Lantus Syringe) 35 unit DAILY SQ 06/17/20 09:00 06/30/20 09:12 Lactobacillus Rhamnosus (Culturelle) 1 cap DAILY PO 06/17/20 09:00 06/30/20 08:33 Multivitamins/ Calcium (Thera-M Plus) 1 tab DAILY PO 06/17/20 09:00 06/30/20 08:34 Pantoprazole Sodium (Protonix) 40 mg DAILY PO 06/17/20 09:00 06/30/20 08:33 Vitamin D (Vitamin D3) 500 unit DAILY PO 06/17/20 09:00 06/30/20 08:33 Insulin Human Lispro (HumaLOG) 0-5 UNITS TIDWMEALS SQ 06/17/20 08:00 06/17/20 12:18 Dextrose (Dextrose 50%-Water Syringe) 12.5 gm PRN Q15MIN PRN IV SEE COMMENTS 06/16/20 21:00 Olanzapine (ZyPREXA ZYDIS) 2.5 mg PRN Q2HRS PRN PO PSYCHOSIS/Agitation 06/16/20 21:15 06/18/20 18:00 DC 06/18/20 08:45 Divalproex Sodium (Depakote Sprinkles) 250 mg TID PO 06/17/20 14:00 06/20/20 18:07 DC 06/20/20 13:04 Quetiapine Fumarate (SEROquel) 150 mg HS PO 06/17/20 21:00 06/21/20 17:15 DC 06/20/20 20:53 Quetiapine Fumarate (SEROquel) 25 mg PRN Q4HRS PRN PO AGITATION 06/18/20 10:00 06/28/20 12:23 Trimethoprim/ Sulfamethoxazole (Bactrim Ss) 1 tab BID PO 06/20/20 21:00 06/28/20 21:00 DC 06/28/20 20:39 Metoprolol Succinate (Toprol Xl) 50 mg DAILY PO 06/21/20 09:00 06/30/20 08:33 Divalproex Sodium (Depakote Sprinkles) 500 mg 0900,1700 PO 06/21/20 09:00 06/24/20 17:10 DC 06/24/20 08:43 Risperidone (RisperDAL) 0.5 mg BID PO 06/21/20 21:00 06/30/20 20:57 Hydralazine HCl (Apresoline) 25 mg PRN TID PRN PO anxiety 06/21/20 17:30 06/28/20 11:51 DC 06/27/20 15:50 Divalproex Sodium (Depakote Sprinkles) 500 mg 0900 PO 06/25/20 09:00 06/30/20 08:32 Divalproex Sodium (Depakote Sprinkles) 750 mg HS PO 06/24/20 21:00 06/30/20 20:57 Hydroxyzine HCl (Atarax) 25 mg PRN TID PRN PO ANXIETY / AGITATION 06/28/20 12:00 06/29/20 14:26 I have reviewed the current psychotropics carefully including drug interactions. Risk benefit ratio favors no change other than as noted in my dictated progress note. Diagnosis: Problems: (1) Schizoaffective disorder, bipolar type (2) Impulse control disorder, unspecified (3) Anxiety disorder, unspecified (4) Bipolar disorder, curr episode mixed, severe, with psychotic features CHAVO WANG MD Jun 30, 2020 21:05
[2020-07-01 06:07] VITALS: BP 131/67
[2020-07-01] MEDS: NICOTINE 14MG PATCH. TD SCH (07:48)
[2020-07-01] MEDS: PANTOPRAZOLE 40 MG TABLET. PO SCH (07:49)
[2020-07-01] MEDS: risperiDONE 0.5 MG TABLET. PO SCH ×2 (07:49→20:17)
[2020-07-01] MEDS: ASPIRIN ENTERIC COATED 81 MG TABLET.DR. PO SCH (07:49)
[2020-07-01] MEDS: DIVALPROEX 125 MG CAP.SPRINK PO SCH ×2 (07:49→20:17)
[2020-07-01] MEDS: CHOLECALCIFEROL (VITAMIN D3) 1,000 UNIT TABLET PO SCH (07:49)
[2020-07-01] MEDS: METOPROLOL SUCC 24HR ER 50 MG TAB.ER.24H. PO SCH (07:49)
[2020-07-01] MEDS: APIXABAN 5 MG TABLET. PO SCH ×2 (07:49→20:17)
[2020-07-01] MEDS: LACTOBACILLUS RHAMNOSUS GG 1 CAPSULE. PO SCH (07:49)
[2020-07-01] MEDS: LINAGLIPTIN 5 MG TABLET PO SCH (07:50)
[2020-07-01] MEDS: GABAPENTIN 100 MG CAPSULE. PO SCH ×2 (07:50→20:17)
[2020-07-01] MEDS: CYANOCOBALAMIN (VITAMIN B-12) 250 MCG TABLET. PO SCH (07:50)
[2020-07-01] MEDS: MULTIVITAMIN with MINERAL TABLET. PO SCH (07:50)
[2020-07-01] MEDS: metFORMIN 500 MG TABLET PO SCH ×2 (07:50→17:42)
[2020-07-01] MEDS: INSULIN GLARGINE SYRINGE. SQ SCH (07:56)
[2020-07-01] MEDS: INSULIN LISPRO 300 UNITS/3 ML VIAL. SQ SCH ×3 (07:56→17:00)
[2020-07-01 15:00] VITALS: BP 128/76
[2020-07-01] MEDS: MELATONIN 3 MG TABLET PO SCH (20:16)
[2020-07-01] MEDS: ATORVASTATIN CALCIUM 20 MG TABLET PO SCH (20:17)
[2020-07-01] MEDS: NEOMY/BACITR/POLYMYXIN OINT PACKET. TP SCH (20:18)
--- NOTE | 2020-07-01 21:00 | PDOC ---
Exam Note: Edgar Note: Please also refer to the separate dictated note~for this date of service dictated separately.~Patient seen individually. Discussed the patient with Nursing staff reviewed the chart.~Reviewed interim history and current functioning. Reviewed vital signs,~Labs/ Radiology~and current medications noted below. Continue current treatment with the changes noted in the dictated addendum note Assessment: Vital Signs/I&O: Vital Signs Date Time Temp Pulse Resp B/P (MAP) Pulse Ox O2 Delivery O2 Flow Rate FiO2 07/01/20 15:00 97.6 80 20 128/76 (93) 97 Room Air I & O 06/30/20 06/30/20 07/01/20 14:59 22:59 06:59 Intake Total 720 ml 840 ml Balance 720 ml 840 ml Labs: Laboratory Tests Test 07/01/20 07:45 07/01/20 11:40 07/01/20 16:56 07/01/20 19:00 Glucose (Fingerstick) 128 mg/dL (70-99) H 120 mg/dL (70-99) H 197 mg/dL (70-99) H 270 mg/dL (70-99) H Current Medications: Meds: Laboratory Tests Test 07/01/20 07:45 07/01/20 11:40 07/01/20 16:56 07/01/20 19:00 Glucose (Fingerstick) 128 mg/dL 120 mg/dL 197 mg/dL 270 mg/dL Current Medications Medications (Trade) Dose Ordered Sig/Alexx Route PRN Reason Start Time Stop Time Status Last Admin Dose Admin Acetaminophen (Tylenol) 650 mg PRN Q6HRS PRN PO MILD PAIN / TEMP > 100.3'F 06/16/20 20:30 06/25/20 18:24 Multi-Ingredient Ointment (Analgesic [place]) 1 rocio PRN QID PRN TP MUSCLE PAIN 06/16/20 20:30 Al Hydroxide/Mg Hydroxide (Mylanta Plus Xs) 15 ml PRN AFTMEALHC PRN PO DYSPEPSIA 06/16/20 20:30 Magnesium Hydroxide (Milk Of Magnesia) 2,400 mg PRN QHS PRN PO CONSTIPATION 06/16/20 20:30 Apixaban (Eliquis) 5 mg BID PO 06/16/20 21:00 07/01/20 20:17 Aspirin (Aspirin Enteric Coated) 81 mg DAILY PO 06/17/20 09:00 07/01/20 07:49 Divalproex Sodium (Depakote Sprinkles) 125 mg TID PO 06/16/20 21:30 06/17/20 11:56 DC 06/17/20 08:17 Gabapentin (Neurontin) 100 mg BID PO 06/16/20 21:30 07/01/20 20:17 Acetaminophen/ Hydrocodone Bitart (Lortab 5/325) 1 tab PRN Q4HRS PRN PO MOD-SEV PAIN 06/16/20 21:00 Linagliptin (Tradjenta) 5 mg DAILY PO 06/17/20 09:00 07/01/20 07:50 Melatonin (Melatonin) 3 mg HS PO 06/16/20 21:30 07/01/20 20:16 Metformin HCl (Glucophage) 750 mg BIDWMEALS PO 06/17/20 08:00 07/01/20 17:42 Metoprolol Succinate (Toprol Xl) 25 mg DAILY PO 06/17/20 09:00 06/20/20 16:14 DC 06/20/20 08:29 Nicotine (Nicoderm Cq 14mg Patch) 1 patch DAILY TD 06/17/20 09:00 07/01/20 07:48 Quetiapine Fumarate (SEROquel) 50 mg BID PO 06/16/20 21:30 06/17/20 11:56 DC 06/17/20 08:16 Atorvastatin Calcium (Lipitor) 40 mg QHS PO 06/16/20 21:30 07/01/20 20:17 Cyanocobalamin (Vitamin B-12) 500 mcg DAILY PO 06/17/20 09:00 07/01/20 07:50 Insulin Glargine (Lantus Syringe) 35 unit DAILY SQ 06/17/20 09:00 07/01/20 07:56 Lactobacillus Rhamnosus (Culturelle) 1 cap DAILY PO 06/17/20 09:00 07/01/20 07:49 Multivitamins/ Calcium (Thera-M Plus) 1 tab DAILY PO 06/17/20 09:00 07/01/20 07:50 Pantoprazole Sodium (Protonix) 40 mg DAILY PO 06/17/20 09:00 07/01/20 07:49 Vitamin D (Vitamin D3) 500 unit DAILY PO 06/17/20 09:00 07/01/20 07:49 Insulin Human Lispro (HumaLOG) 0-5 UNITS TIDWMEALS SQ 06/17/20 08:00 06/17/20 12:18 Dextrose (Dextrose 50%-Water Syringe) 12.5 gm PRN Q15MIN PRN IV SEE COMMENTS 06/16/20 21:00 Olanzapine (ZyPREXA ZYDIS) 2.5 mg PRN Q2HRS PRN PO PSYCHOSIS/Agitation 06/16/20 21:15 06/18/20 18:00 DC 06/18/20 08:45 Divalproex Sodium (Depakote Sprinkles) 250 mg TID PO 06/17/20 14:00 06/20/20 18:07 DC 06/20/20 13:04 Quetiapine Fumarate (SEROquel) 150 mg HS PO 06/17/20 21:00 06/21/20 17:15 DC 06/20/20 20:53 Quetiapine Fumarate (SEROquel) 25 mg PRN Q4HRS PRN PO AGITATION 06/18/20 10:00 06/28/20 12:23 Trimethoprim/ Sulfamethoxazole (Bactrim Ss) 1 tab BID PO 06/20/20 21:00 06/28/20 21:00 DC 06/28/20 20:39 Metoprolol Succinate (Toprol Xl) 50 mg DAILY PO 06/21/20 09:00 07/01/20 07:49 Divalproex Sodium (Depakote Sprinkles) 500 mg 0900,1700 PO 06/21/20 09:00 06/24/20 17:10 DC 06/24/20 08:43 Risperidone (RisperDAL) 0.5 mg BID PO 06/21/20 21:00 07/01/20 20:17 Hydralazine HCl (Apresoline) 25 mg PRN TID PRN PO anxiety 06/21/20 17:30 06/28/20 11:51 DC 06/27/20 15:50 Divalproex Sodium (Depakote Sprinkles) 500 mg 0900 PO 06/25/20 09:00 07/01/20 07:49 Divalproex Sodium (Depakote Sprinkles) 750 mg HS PO 06/24/20 21:00 07/01/20 20:17 Hydroxyzine HCl (Atarax) 25 mg PRN TID PRN PO ANXIETY / AGITATION 06/28/20 12:00 06/29/20 14:26 Neomycin/ Polymyxin/ Bacitracin (Triple Antibiotic Ointment) 1 pkt BID TP 07/01/20 21:00 07/01/20 20:18 Current Medications Medications (Trade) Dose Ordered Sig/Alexx Route PRN Reason Start Time Stop Time Status Last Admin Dose Admin Neomycin/ Polymyxin/ Bacitracin (Triple Antibiotic Ointment) 1 pkt BID TP 07/01/20 21:00 07/01/20 20:18 I have reviewed the current psychotropics carefully including drug interactions. Risk benefit ratio favors no change other than as noted in my dictated progress note. Diagnosis: Problems: (1) Schizoaffective disorder, bipolar type (2) Impulse control disorder, unspecified (3) Anxiety disorder, unspecified (4) Bipolar disorder, curr episode mixed, severe, with psychotic features CHAVO WANG MD Jul 01, 2020 21:00
[2020-07-02 06:29] VITALS: BP 137/80
[2020-07-02] MEDS: LINAGLIPTIN 5 MG TABLET PO SCH (07:48)
[2020-07-02] MEDS: NICOTINE 14MG PATCH. TD SCH (07:48)
[2020-07-02] MEDS: DIVALPROEX 125 MG CAP.SPRINK PO SCH ×2 (07:48→20:28)
[2020-07-02] MEDS: METOPROLOL SUCC 24HR ER 50 MG TAB.ER.24H. PO SCH (07:48)
[2020-07-02] MEDS: PANTOPRAZOLE 40 MG TABLET. PO SCH (07:49)
[2020-07-02] MEDS: risperiDONE 0.5 MG TABLET. PO SCH ×2 (07:49→20:28)
[2020-07-02] MEDS: MULTIVITAMIN with MINERAL TABLET. PO SCH (07:49)
[2020-07-02] MEDS: CYANOCOBALAMIN (VITAMIN B-12) 250 MCG TABLET. PO SCH (07:49)
[2020-07-02] MEDS: GABAPENTIN 100 MG CAPSULE. PO SCH ×2 (07:49→20:28)
[2020-07-02] MEDS: ASPIRIN ENTERIC COATED 81 MG TABLET.DR. PO SCH (07:49)
[2020-07-02] MEDS: CHOLECALCIFEROL (VITAMIN D3) 1,000 UNIT TABLET PO SCH (07:49)
[2020-07-02] MEDS: LACTOBACILLUS RHAMNOSUS GG 1 CAPSULE. PO SCH (07:49)
[2020-07-02] MEDS: APIXABAN 5 MG TABLET. PO SCH ×2 (07:49→20:28)
[2020-07-02] MEDS: NEOMY/BACITR/POLYMYXIN OINT PACKET. TP SCH ×2 (07:49→20:28)
[2020-07-02] MEDS: metFORMIN 500 MG TABLET PO SCH ×2 (07:50→17:00)
[2020-07-02] MEDS: hydrOXYzine HCL 25 MG TABLET PO PRN (07:57)
[2020-07-02] MEDS: INSULIN LISPRO 300 UNITS/3 ML VIAL. SQ SCH ×3 (08:00→17:00)
[2020-07-02] MEDS: INSULIN GLARGINE SYRINGE. SQ SCH (08:49)
[2020-07-02 16:35] VITALS: BP 158/88
[2020-07-02] MEDS: MELATONIN 3 MG TABLET PO SCH (20:28)
[2020-07-02] MEDS: ATORVASTATIN CALCIUM 20 MG TABLET PO SCH (20:28)
--- NOTE | 2020-07-02 20:54 | PDOC ---
Exam Note: Edgar Note: This note is a late entry for 06/30/2020 covers elements not covered in my initial note. Subjective: The patient was seen face to face in the evening of 06/30/2020 with Nancie MELGAR. Discussed with nursing staff, reviewed the chart. She slept 7-3/4 hours previous night. Overall the patient did reasonably well, somewhat anxious in the morning, better later in the day. 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 No CV, , pulmonary, eye system symptoms on review. Mental Status Exam: The patient is reasonably oriented. Speech is coherent, less pressured. Abstraction is fair. Computation is impaired. Language function is intact. Attention span is short. Mood and affect remains improved, less labile. Laboratory Data: Reviewed. Impression: Schizoaffective disorder bipolar type, mixed versus bipolar disorder mixed with psychotic features. Anxiety disorder unspecified. Impulse control disorder unspecified. Plan: No change from initial note. Assessment: Vital Signs/I&O: Vital Signs Date Time Temp Pulse Resp B/P (MAP) Pulse Ox O2 Delivery O2 Flow Rate FiO2 07/02/20 16:35 97.5 77 18 158/88 (111) 97 07/02/20 06:29 Room Air I & O 07/01/20 07/01/20 07/02/20 15:00 23:00 07:00 Intake Total 600 ml 560 ml Balance 600 ml 560 ml Labs: Laboratory Tests Test 07/02/20 07:35 07/02/20 12:07 07/02/20 16:46 07/02/20 19:14 Glucose (Fingerstick) 100 mg/dL (70-99) H 99 mg/dL (70-99) 165 mg/dL (70-99) H 207 mg/dL (70-99) H Current Medications: Meds: Laboratory Tests Test 07/02/20 07:35 07/02/20 12:07 07/02/20 16:46 07/02/20 19:14 Glucose (Fingerstick) 100 mg/dL 99 mg/dL 165 mg/dL 207 mg/dL Current Medications Medications (Trade) Dose Ordered Sig/Alexx Route PRN Reason Start Time Stop Time Status Last Admin Dose Admin Acetaminophen (Tylenol) 650 mg PRN Q6HRS PRN PO MILD PAIN / TEMP > 100.3'F 06/16/20 20:30 06/25/20 18:24 Multi-Ingredient Ointment (Analgesic [place]) 1 rocio PRN QID PRN TP MUSCLE PAIN 06/16/20 20:30 Al Hydroxide/Mg Hydroxide (Mylanta Plus Xs) 15 ml PRN AFTMEALHC PRN PO DYSPEPSIA 06/16/20 20:30 Magnesium Hydroxide (Milk Of Magnesia) 2,400 mg PRN QHS PRN PO CONSTIPATION 06/16/20 20:30 Apixaban (Eliquis) 5 mg BID PO 06/16/20 21:00 07/02/20 20:28 Aspirin (Aspirin Enteric Coated) 81 mg DAILY PO 06/17/20 09:00 07/02/20 07:49 Divalproex Sodium (Depakote Sprinkles) 125 mg TID PO 06/16/20 21:30 06/17/20 11:56 DC 06/17/20 08:17 Gabapentin (Neurontin) 100 mg BID PO 06/16/20 21:30 07/02/20 20:28 Acetaminophen/ Hydrocodone Bitart (Lortab 5/325) 1 tab PRN Q4HRS PRN PO MOD-SEV PAIN 06/16/20 21:00 Linagliptin (Tradjenta) 5 mg DAILY PO 06/17/20 09:00 07/02/20 07:48 Melatonin (Melatonin) 3 mg HS PO 06/16/20 21:30 07/02/20 20:28 Metformin HCl (Glucophage) 750 mg BIDWMEALS PO 06/17/20 08:00 07/02/20 17:00 Metoprolol Succinate (Toprol Xl) 25 mg DAILY PO 06/17/20 09:00 06/20/20 16:14 DC 06/20/20 08:29 Nicotine (Nicoderm Cq 14mg Patch) 1 patch DAILY TD 06/17/20 09:00 07/02/20 07:48 Quetiapine Fumarate (SEROquel) 50 mg BID PO 06/16/20 21:30 06/17/20 11:56 DC 06/17/20 08:16 Atorvastatin Calcium (Lipitor) 40 mg QHS PO 06/16/20 21:30 07/02/20 20:28 Cyanocobalamin (Vitamin B-12) 500 mcg DAILY PO 06/17/20 09:00 07/02/20 07:49 Insulin Glargine (Lantus Syringe) 35 unit DAILY SQ 06/17/20 09:00 07/02/20 08:49 Lactobacillus Rhamnosus (Culturelle) 1 cap DAILY PO 06/17/20 09:00 07/02/20 07:49 Multivitamins/ Calcium (Thera-M Plus) 1 tab DAILY PO 06/17/20 09:00 07/02/20 07:49 Pantoprazole Sodium (Protonix) 40 mg DAILY PO 06/17/20 09:00 07/02/20 07:49 Vitamin D (Vitamin D3) 500 unit DAILY PO 06/17/20 09:00 07/02/20 07:49 Insulin Human Lispro (HumaLOG) 0-5 UNITS TIDWMEALS SQ 06/17/20 08:00 06/17/20 12:18 Dextrose (Dextrose 50%-Water Syringe) 12.5 gm PRN Q15MIN PRN IV SEE COMMENTS 06/16/20 21:00 Olanzapine (ZyPREXA ZYDIS) 2.5 mg PRN Q2HRS PRN PO PSYCHOSIS/Agitation 06/16/20 21:15 06/18/20 18:00 DC 06/18/20 08:45 Divalproex Sodium (Depakote Sprinkles) 250 mg TID PO 06/17/20 14:00 06/20/20 18:07 DC 06/20/20 13:04 Quetiapine Fumarate (SEROquel) 150 mg HS PO 06/17/20 21:00 06/21/20 17:15 DC 06/20/20 20:53 Quetiapine Fumarate (SEROquel) 25 mg PRN Q4HRS PRN PO AGITATION 06/18/20 10:00 06/28/20 12:23 Trimethoprim/ Sulfamethoxazole (Bactrim Ss) 1 tab BID PO 06/20/20 21:00 06/28/20 21:00 DC 06/28/20 20:39 Metoprolol Succinate (Toprol Xl) 50 mg DAILY PO 06/21/20 09:00 07/02/20 07:48 Divalproex Sodium (Depakote Sprinkles) 500 mg 0900,1700 PO 06/21/20 09:00 06/24/20 17:10 DC 06/24/20 08:43 Risperidone (RisperDAL) 0.5 mg BID PO 06/21/20 21:00 07/02/20 20:28 Hydralazine HCl (Apresoline) 25 mg PRN TID PRN PO anxiety 06/21/20 17:30 06/28/20 11:51 DC 06/27/20 15:50 Divalproex Sodium (Depakote Sprinkles) 500 mg 0900 PO 06/25/20 09:00 07/02/20 07:48 Divalproex Sodium (Depakote Sprinkles) 750 mg HS PO 06/24/20 21:00 07/02/20 20:28 Hydroxyzine HCl (Atarax) 25 mg PRN TID PRN PO ANXIETY / AGITATION 06/28/20 12:00 07/02/20 07:57 Neomycin/ Polymyxin/ Bacitracin (Triple Antibiotic Ointment) 1 pkt BID TP 07/01/20 21:00 07/02/20 20:28 Current Medications Medications (Trade) Dose Ordered Sig/Alexx Route PRN Reason Start Time Stop Time Status Last Admin Dose Admin Neomycin/ Polymyxin/ Bacitracin (Triple Antibiotic Ointment) 1 pkt BID TP 07/01/20 21:00 07/02/20 20:28 I have reviewed the current psychotropics carefully including drug interactions. Risk benefit ratio favors no change other than as noted in my dictated progress note. Diagnosis: Problems: (1) Schizoaffective disorder, bipolar type (2) Impulse control disorder, unspecified (3) Anxiety disorder, unspecified (4) Bipolar disorder, curr episode mixed, severe, with psychotic features CHAVO WANG MD Jul 02, 2020 20:54
[2020-07-02] MEDS: ACETAMINOPHEN 325 MG TABLET PO PRN (21:11)
--- NOTE | 2020-07-02 21:30 | PDOC ---
Exam Note: Edgar Note: Please also refer to the separate dictated note~for this date of service dictated separately.~Patient seen individually. Discussed the patient with Nursing staff reviewed the chart.~Reviewed interim history and current functioning. Reviewed vital signs,~Labs/ Radiology~and current medications noted below. Continue current treatment with the changes noted in the dictated addendum note Assessment: Vital Signs/I&O: Vital Signs Date Time Temp Pulse Resp B/P (MAP) Pulse Ox O2 Delivery O2 Flow Rate FiO2 07/02/20 16:35 97.5 77 18 158/88 (111) 97 07/02/20 06:29 Room Air I & O 07/01/20 07/01/20 07/02/20 15:00 23:00 07:00 Intake Total 600 ml 560 ml Balance 600 ml 560 ml Labs: Laboratory Tests Test 07/02/20 07:35 07/02/20 12:07 07/02/20 16:46 07/02/20 19:14 Glucose (Fingerstick) 100 mg/dL (70-99) H 99 mg/dL (70-99) 165 mg/dL (70-99) H 207 mg/dL (70-99) H Current Medications: Meds: Laboratory Tests Test 07/02/20 07:35 07/02/20 12:07 07/02/20 16:46 07/02/20 19:14 Glucose (Fingerstick) 100 mg/dL 99 mg/dL 165 mg/dL 207 mg/dL Current Medications Medications (Trade) Dose Ordered Sig/Alexx Route PRN Reason Start Time Stop Time Status Last Admin Dose Admin Acetaminophen (Tylenol) 650 mg PRN Q6HRS PRN PO MILD PAIN / TEMP > 100.3'F 06/16/20 20:30 07/02/20 21:11 Multi-Ingredient Ointment (Analgesic [place]) 1 rocio PRN QID PRN TP MUSCLE PAIN 06/16/20 20:30 Al Hydroxide/Mg Hydroxide (Mylanta Plus Xs) 15 ml PRN AFTMEALHC PRN PO DYSPEPSIA 06/16/20 20:30 Magnesium Hydroxide (Milk Of Magnesia) 2,400 mg PRN QHS PRN PO CONSTIPATION 06/16/20 20:30 Apixaban (Eliquis) 5 mg BID PO 06/16/20 21:00 07/02/20 20:28 Aspirin (Aspirin Enteric Coated) 81 mg DAILY PO 06/17/20 09:00 07/02/20 07:49 Divalproex Sodium (Depakote Sprinkles) 125 mg TID PO 06/16/20 21:30 06/17/20 11:56 DC 06/17/20 08:17 Gabapentin (Neurontin) 100 mg BID PO 06/16/20 21:30 07/02/20 20:28 Acetaminophen/ Hydrocodone Bitart (Lortab 5/325) 1 tab PRN Q4HRS PRN PO MOD-SEV PAIN 06/16/20 21:00 Linagliptin (Tradjenta) 5 mg DAILY PO 06/17/20 09:00 07/02/20 07:48 Melatonin (Melatonin) 3 mg HS PO 06/16/20 21:30 07/02/20 20:28 Metformin HCl (Glucophage) 750 mg BIDWMEALS PO 06/17/20 08:00 07/02/20 17:00 Metoprolol Succinate (Toprol Xl) 25 mg DAILY PO 06/17/20 09:00 06/20/20 16:14 DC 06/20/20 08:29 Nicotine (Nicoderm Cq 14mg Patch) 1 patch DAILY TD 06/17/20 09:00 07/02/20 07:48 Quetiapine Fumarate (SEROquel) 50 mg BID PO 06/16/20 21:30 06/17/20 11:56 DC 06/17/20 08:16 Atorvastatin Calcium (Lipitor) 40 mg QHS PO 06/16/20 21:30 07/02/20 20:28 Cyanocobalamin (Vitamin B-12) 500 mcg DAILY PO 06/17/20 09:00 07/02/20 07:49 Insulin Glargine (Lantus Syringe) 35 unit DAILY SQ 06/17/20 09:00 07/02/20 08:49 Lactobacillus Rhamnosus (Culturelle) 1 cap DAILY PO 06/17/20 09:00 07/02/20 07:49 Multivitamins/ Calcium (Thera-M Plus) 1 tab DAILY PO 06/17/20 09:00 07/02/20 07:49 Pantoprazole Sodium (Protonix) 40 mg DAILY PO 06/17/20 09:00 07/02/20 07:49 Vitamin D (Vitamin D3) 500 unit DAILY PO 06/17/20 09:00 07/02/20 07:49 Insulin Human Lispro (HumaLOG) 0-5 UNITS TIDWMEALS SQ 06/17/20 08:00 06/17/20 12:18 Dextrose (Dextrose 50%-Water Syringe) 12.5 gm PRN Q15MIN PRN IV SEE COMMENTS 06/16/20 21:00 Olanzapine (ZyPREXA ZYDIS) 2.5 mg PRN Q2HRS PRN PO PSYCHOSIS/Agitation 06/16/20 21:15 06/18/20 18:00 DC 06/18/20 08:45 Divalproex Sodium (Depakote Sprinkles) 250 mg TID PO 06/17/20 14:00 06/20/20 18:07 DC 06/20/20 13:04 Quetiapine Fumarate (SEROquel) 150 mg HS PO 06/17/20 21:00 06/21/20 17:15 DC 06/20/20 20:53 Quetiapine Fumarate (SEROquel) 25 mg PRN Q4HRS PRN PO AGITATION 06/18/20 10:00 06/28/20 12:23 Trimethoprim/ Sulfamethoxazole (Bactrim Ss) 1 tab BID PO 06/20/20 21:00 06/28/20 21:00 DC 06/28/20 20:39 Metoprolol Succinate (Toprol Xl) 50 mg DAILY PO 06/21/20 09:00 07/02/20 07:48 Divalproex Sodium (Depakote Sprinkles) 500 mg 0900,1700 PO 06/21/20 09:00 06/24/20 17:10 DC 06/24/20 08:43 Risperidone (RisperDAL) 0.5 mg BID PO 06/21/20 21:00 07/02/20 20:28 Hydralazine HCl (Apresoline) 25 mg PRN TID PRN PO anxiety 06/21/20 17:30 06/28/20 11:51 DC 06/27/20 15:50 Divalproex Sodium (Depakote Sprinkles) 500 mg 0900 PO 06/25/20 09:00 07/02/20 07:48 Divalproex Sodium (Depakote Sprinkles) 750 mg HS PO 06/24/20 21:00 07/02/20 20:28 Hydroxyzine HCl (Atarax) 25 mg PRN TID PRN PO ANXIETY / AGITATION 06/28/20 12:00 07/02/20 07:57 Neomycin/ Polymyxin/ Bacitracin (Triple Antibiotic Ointment) 1 pkt BID TP 07/01/20 21:00 07/02/20 20:28 I have reviewed the current psychotropics carefully including drug interactions. Risk benefit ratio favors no change other than as noted in my dictated progress note. Diagnosis: Problems: (1) Schizoaffective disorder, bipolar type (2) Impulse control disorder, unspecified (3) Anxiety disorder, unspecified (4) Bipolar disorder, curr episode mixed, severe, with psychotic features CHAVO WANG MD Jul 02, 2020 21:30
--- NOTE | 2020-07-02 21:30 | PDOC ---
Exam Note: Edgar Note: This note is a late entry for 07/01/2020 covers elements not covered in my initial note. Subjective: The patient was seen face to face in the evening of 07/01/2020 with Nancie MELGAR. Discussed with nursing staff, reviewed the chart. She slept 5-3/4 hours previous night. The patients was being attention seeking, needy during the day but compliant with her medications. Review of Systems: Ambulation impaired in wheelchair. No CV, , pulmonary, eye system symptoms on review. Mental Status Exam: The patient is reasonably oriented. The patient was upset about the cover for her amputated lower extremity, wanted nursing to change it. We will defer to nursing staff. Speech is coherent, less pressured. Abstraction is fair. Computation is impaired. Language function is intact. Attention span is short. Mood and affect remains less labile. Laboratory Data: Reviewed. Impression: Schizoaffective disorder bipolar type, mixed versus bipolar disorder mixed with psychotic features. Anxiety disorder unspecified. Impulse control disorder unspecified. Plan: No change from initial note. Assessment: Vital Signs/I&O: Vital Signs Date Time Temp Pulse Resp B/P (MAP) Pulse Ox O2 Delivery O2 Flow Rate FiO2 07/02/20 16:35 97.5 77 18 158/88 (111) 97 07/02/20 06:29 Room Air I & O 07/01/20 07/01/20 07/02/20 15:00 23:00 07:00 Intake Total 600 ml 560 ml Balance 600 ml 560 ml Labs: Laboratory Tests Test 07/02/20 07:35 07/02/20 12:07 07/02/20 16:46 07/02/20 19:14 Glucose (Fingerstick) 100 mg/dL (70-99) H 99 mg/dL (70-99) 165 mg/dL (70-99) H 207 mg/dL (70-99) H Current Medications: Meds: Laboratory Tests Test 07/02/20 07:35 07/02/20 12:07 07/02/20 16:46 07/02/20 19:14 Glucose (Fingerstick) 100 mg/dL 99 mg/dL 165 mg/dL 207 mg/dL Current Medications Medications (Trade) Dose Ordered Sig/Alexx Route PRN Reason Start Time Stop Time Status Last Admin Dose Admin Acetaminophen (Tylenol) 650 mg PRN Q6HRS PRN PO MILD PAIN / TEMP > 100.3'F 06/16/20 20:30 07/02/20 21:11 Multi-Ingredient Ointment (Analgesic [place]) 1 rocio PRN QID PRN TP MUSCLE PAIN 06/16/20 20:30 Al Hydroxide/Mg Hydroxide (Mylanta Plus Xs) 15 ml PRN AFTMEALHC PRN PO DYSPEPSIA 06/16/20 20:30 Magnesium Hydroxide (Milk Of Magnesia) 2,400 mg PRN QHS PRN PO CONSTIPATION 06/16/20 20:30 Apixaban (Eliquis) 5 mg BID PO 06/16/20 21:00 07/02/20 20:28 Aspirin (Aspirin Enteric Coated) 81 mg DAILY PO 06/17/20 09:00 07/02/20 07:49 Divalproex Sodium (Depakote Sprinkles) 125 mg TID PO 06/16/20 21:30 06/17/20 11:56 DC 06/17/20 08:17 Gabapentin (Neurontin) 100 mg BID PO 06/16/20 21:30 07/02/20 20:28 Acetaminophen/ Hydrocodone Bitart (Lortab 5/325) 1 tab PRN Q4HRS PRN PO MOD-SEV PAIN 06/16/20 21:00 Linagliptin (Tradjenta) 5 mg DAILY PO 06/17/20 09:00 07/02/20 07:48 Melatonin (Melatonin) 3 mg HS PO 06/16/20 21:30 07/02/20 20:28 Metformin HCl (Glucophage) 750 mg BIDWMEALS PO 06/17/20 08:00 07/02/20 17:00 Metoprolol Succinate (Toprol Xl) 25 mg DAILY PO 06/17/20 09:00 06/20/20 16:14 DC 06/20/20 08:29 Nicotine (Nicoderm Cq 14mg Patch) 1 patch DAILY TD 06/17/20 09:00 07/02/20 07:48 Quetiapine Fumarate (SEROquel) 50 mg BID PO 06/16/20 21:30 06/17/20 11:56 DC 06/17/20 08:16 Atorvastatin Calcium (Lipitor) 40 mg QHS PO 06/16/20 21:30 07/02/20 20:28 Cyanocobalamin (Vitamin B-12) 500 mcg DAILY PO 06/17/20 09:00 07/02/20 07:49 Insulin Glargine (Lantus Syringe) 35 unit DAILY SQ 06/17/20 09:00 07/02/20 08:49 Lactobacillus Rhamnosus (Culturelle) 1 cap DAILY PO 06/17/20 09:00 07/02/20 07:49 Multivitamins/ Calcium (Thera-M Plus) 1 tab DAILY PO 06/17/20 09:00 07/02/20 07:49 Pantoprazole Sodium (Protonix) 40 mg DAILY PO 06/17/20 09:00 07/02/20 07:49 Vitamin D (Vitamin D3) 500 unit DAILY PO 06/17/20 09:00 07/02/20 07:49 Insulin Human Lispro (HumaLOG) 0-5 UNITS TIDWMEALS SQ 06/17/20 08:00 06/17/20 12:18 Dextrose (Dextrose 50%-Water Syringe) 12.5 gm PRN Q15MIN PRN IV SEE COMMENTS 06/16/20 21:00 Olanzapine (ZyPREXA ZYDIS) 2.5 mg PRN Q2HRS PRN PO PSYCHOSIS/Agitation 06/16/20 21:15 06/18/20 18:00 DC 06/18/20 08:45 Divalproex Sodium (Depakote Sprinkles) 250 mg TID PO 06/17/20 14:00 06/20/20 18:07 DC 06/20/20 13:04 Quetiapine Fumarate (SEROquel) 150 mg HS PO 06/17/20 21:00 06/21/20 17:15 DC 06/20/20 20:53 Quetiapine Fumarate (SEROquel) 25 mg PRN Q4HRS PRN PO AGITATION 06/18/20 10:00 06/28/20 12:23 Trimethoprim/ Sulfamethoxazole (Bactrim Ss) 1 tab BID PO 06/20/20 21:00 06/28/20 21:00 DC 06/28/20 20:39 Metoprolol Succinate (Toprol Xl) 50 mg DAILY PO 06/21/20 09:00 07/02/20 07:48 Divalproex Sodium (Depakote Sprinkles) 500 mg 0900,1700 PO 06/21/20 09:00 06/24/20 17:10 DC 06/24/20 08:43 Risperidone (RisperDAL) 0.5 mg BID PO 06/21/20 21:00 07/02/20 20:28 Hydralazine HCl (Apresoline) 25 mg PRN TID PRN PO anxiety 06/21/20 17:30 06/28/20 11:51 DC 06/27/20 15:50 Divalproex Sodium (Depakote Sprinkles) 500 mg 0900 PO 06/25/20 09:00 07/02/20 07:48 Divalproex Sodium (Depakote Sprinkles) 750 mg HS PO 06/24/20 21:00 07/02/20 20:28 Hydroxyzine HCl (Atarax) 25 mg PRN TID PRN PO ANXIETY / AGITATION 06/28/20 12:00 07/02/20 07:57 Neomycin/ Polymyxin/ Bacitracin (Triple Antibiotic Ointment) 1 pkt BID TP 07/01/20 21:00 07/02/20 20:28 I have reviewed the current psychotropics carefully including drug interactions. Risk benefit ratio favors no change other than as noted in my dictated progress note. Diagnosis: Problems: (1) Schizoaffective disorder, bipolar type (2) Impulse control disorder, unspecified (3) Anxiety disorder, unspecified (4) Bipolar disorder, curr episode mixed, severe, with psychotic features CHAVO WANG MD Jul 02, 2020 21:30
[2020-07-03] MEDS: hydrOXYzine HCL 25 MG TABLET PO PRN (05:47)
[2020-07-03 06:12] VITALS: BP 130/75
[2020-07-03] MEDS: INSULIN LISPRO 300 UNITS/3 ML VIAL. SQ SCH ×3 (08:00→17:00)
--- NOTE | 2020-07-03 08:15 | PDOC ---
Exam Note: Edgar Note: This note is a late entry for 07/02/2020 covers elements not covered in my initial note. Subjective: The patient was seen face to face in the evening of 07/02/2020 with Nancie MELGAR. Discussed with nursing staff, reviewed the chart. She slept 6-1/4 hours previous night. The patient has been somewhat anxious at night, yelling with morning cares. Rest of the day better. I met with her in her room. 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 No CV, , pulmonary, eye system symptoms on review. Mental Status Exam: The patient is reasonably oriented. Speech has some latency, coherent, later somewhat pressured. Abstraction is fair. Computation is impaired. Language function is intact. Attention span is short. Mood and affect somewhat withdrawn at times. Laboratory Data: Reviewed. Impression: Schizoaffective disorder bipolar type, mixed versus bipolar disorder mixed with psychotic features. Anxiety disorder unspecified. Impulse control disorder unspecified. Plan: No change from initial note. Assessment: Vital Signs/I&O: Vital Signs Date Time Temp Pulse Resp B/P (MAP) Pulse Ox O2 Delivery O2 Flow Rate FiO2 07/03/20 06:12 97.9 88 14 130/75 (93) 96 Room Air I & O 07/02/20 07/02/20 07/03/20 15:00 23:00 07:00 Intake Total 360 ml 320 ml Balance 360 ml 320 ml Labs: Laboratory Tests Test 07/02/20 12:07 07/02/20 16:46 07/02/20 19:14 07/03/20 07:47 Glucose (Fingerstick) 99 mg/dL (70-99) 165 mg/dL (70-99) H 207 mg/dL (70-99) H 117 mg/dL (70-99) H Current Medications: Meds: Laboratory Tests Test 07/02/20 12:07 07/02/20 16:46 07/02/20 19:14 07/03/20 07:47 Glucose (Fingerstick) 99 mg/dL 165 mg/dL 207 mg/dL 117 mg/dL Current Medications Medications (Trade) Dose Ordered Sig/Alexx Route PRN Reason Start Time Stop Time Status Last Admin Dose Admin Acetaminophen (Tylenol) 650 mg PRN Q6HRS PRN PO MILD PAIN / TEMP > 100.3'F 06/16/20 20:30 07/02/20 21:11 Multi-Ingredient Ointment (Analgesic [place]) 1 rocio PRN QID PRN TP MUSCLE PAIN 06/16/20 20:30 Al Hydroxide/Mg Hydroxide (Mylanta Plus Xs) 15 ml PRN AFTMEALHC PRN PO DYSPEPSIA 06/16/20 20:30 Magnesium Hydroxide (Milk Of Magnesia) 2,400 mg PRN QHS PRN PO CONSTIPATION 06/16/20 20:30 Apixaban (Eliquis) 5 mg BID PO 06/16/20 21:00 07/02/20 20:28 Aspirin (Aspirin Enteric Coated) 81 mg DAILY PO 06/17/20 09:00 07/02/20 07:49 Divalproex Sodium (Depakote Sprinkles) 125 mg TID PO 06/16/20 21:30 06/17/20 11:56 DC 06/17/20 08:17 Gabapentin (Neurontin) 100 mg BID PO 06/16/20 21:30 07/02/20 20:28 Acetaminophen/ Hydrocodone Bitart (Lortab 5/325) 1 tab PRN Q4HRS PRN PO MOD-SEV PAIN 06/16/20 21:00 Linagliptin (Tradjenta) 5 mg DAILY PO 06/17/20 09:00 07/02/20 07:48 Melatonin (Melatonin) 3 mg HS PO 06/16/20 21:30 07/02/20 20:28 Metformin HCl (Glucophage) 750 mg BIDWMEALS PO 06/17/20 08:00 07/02/20 17:00 Metoprolol Succinate (Toprol Xl) 25 mg DAILY PO 06/17/20 09:00 06/20/20 16:14 DC 06/20/20 08:29 Nicotine (Nicoderm Cq 14mg Patch) 1 patch DAILY TD 06/17/20 09:00 07/02/20 07:48 Quetiapine Fumarate (SEROquel) 50 mg BID PO 06/16/20 21:30 06/17/20 11:56 DC 06/17/20 08:16 Atorvastatin Calcium (Lipitor) 40 mg QHS PO 06/16/20 21:30 07/02/20 20:28 Cyanocobalamin (Vitamin B-12) 500 mcg DAILY PO 06/17/20 09:00 07/02/20 07:49 Insulin Glargine (Lantus Syringe) 35 unit DAILY SQ 06/17/20 09:00 07/02/20 08:49 Lactobacillus Rhamnosus (Culturelle) 1 cap DAILY PO 06/17/20 09:00 07/02/20 07:49 Multivitamins/ Calcium (Thera-M Plus) 1 tab DAILY PO 06/17/20 09:00 07/02/20 07:49 Pantoprazole Sodium (Protonix) 40 mg DAILY PO 06/17/20 09:00 07/02/20 07:49 Vitamin D (Vitamin D3) 500 unit DAILY PO 06/17/20 09:00 07/02/20 07:49 Insulin Human Lispro (HumaLOG) 0-5 UNITS TIDWMEALS SQ 06/17/20 08:00 06/17/20 12:18 Dextrose (Dextrose 50%-Water Syringe) 12.5 gm PRN Q15MIN PRN IV SEE COMMENTS 06/16/20 21:00 Olanzapine (ZyPREXA ZYDIS) 2.5 mg PRN Q2HRS PRN PO PSYCHOSIS/Agitation 06/16/20 21:15 06/18/20 18:00 DC 06/18/20 08:45 Divalproex Sodium (Depakote Sprinkles) 250 mg TID PO 06/17/20 14:00 06/20/20 18:07 DC 06/20/20 13:04 Quetiapine Fumarate (SEROquel) 150 mg HS PO 06/17/20 21:00 06/21/20 17:15 DC 06/20/20 20:53 Quetiapine Fumarate (SEROquel) 25 mg PRN Q4HRS PRN PO AGITATION 06/18/20 10:00 06/28/20 12:23 Trimethoprim/ Sulfamethoxazole (Bactrim Ss) 1 tab BID PO 06/20/20 21:00 06/28/20 21:00 DC 06/28/20 20:39 Metoprolol Succinate (Toprol Xl) 50 mg DAILY PO 06/21/20 09:00 07/02/20 07:48 Divalproex Sodium (Depakote Sprinkles) 500 mg 0900,1700 PO 06/21/20 09:00 06/24/20 17:10 DC 06/24/20 08:43 Risperidone (RisperDAL) 0.5 mg BID PO 06/21/20 21:00 07/02/20 20:28 Hydralazine HCl (Apresoline) 25 mg PRN TID PRN PO anxiety 06/21/20 17:30 06/28/20 11:51 DC 06/27/20 15:50 Divalproex Sodium (Depakote Sprinkles) 500 mg 0900 PO 06/25/20 09:00 07/02/20 07:48 Divalproex Sodium (Depakote Sprinkles) 750 mg HS PO 06/24/20 21:00 07/02/20 20:28 Hydroxyzine HCl (Atarax) 25 mg PRN TID PRN PO ANXIETY / AGITATION 06/28/20 12:00 07/03/20 05:47 Neomycin/ Polymyxin/ Bacitracin (Triple Antibiotic Ointment) 1 pkt BID TP 07/01/20 21:00 07/02/20 20:28 I have reviewed the current psychotropics carefully including drug interactions. Risk benefit ratio favors no change other than as noted in my dictated progress note. Diagnosis: Problems: (1) Schizoaffective disorder, bipolar type (2) Impulse control disorder, unspecified (3) Anxiety disorder, unspecified (4) Bipolar disorder, curr episode mixed, severe, with psychotic features CHAVO WANG MD Jul 03, 2020 08:15
[2020-07-03] MEDS: ASPIRIN ENTERIC COATED 81 MG TABLET.DR. PO SCH (09:01)
[2020-07-03] MEDS: CHOLECALCIFEROL (VITAMIN D3) 1,000 UNIT TABLET PO SCH (09:01)
[2020-07-03] MEDS: metFORMIN 500 MG TABLET PO SCH ×2 (09:02→17:03)
[2020-07-03] MEDS: CYANOCOBALAMIN (VITAMIN B-12) 250 MCG TABLET. PO SCH (09:02)
[2020-07-03] MEDS: METOPROLOL SUCC 24HR ER 50 MG TAB.ER.24H. PO SCH (09:02)
[2020-07-03] MEDS: PANTOPRAZOLE 40 MG TABLET. PO SCH (09:02)
[2020-07-03] MEDS: GABAPENTIN 100 MG CAPSULE. PO SCH ×2 (09:02→20:03)
[2020-07-03] MEDS: MULTIVITAMIN with MINERAL TABLET. PO SCH (09:02)
[2020-07-03] MEDS: LINAGLIPTIN 5 MG TABLET PO SCH (09:02)
[2020-07-03] MEDS: risperiDONE 0.5 MG TABLET. PO SCH ×2 (09:02→20:03)
[2020-07-03] MEDS: LACTOBACILLUS RHAMNOSUS GG 1 CAPSULE. PO SCH (09:02)
[2020-07-03] MEDS: APIXABAN 5 MG TABLET. PO SCH ×2 (09:02→20:03)
[2020-07-03] MEDS: NEOMY/BACITR/POLYMYXIN OINT PACKET. TP SCH ×2 (09:03→20:03)
[2020-07-03] MEDS: DIVALPROEX 125 MG CAP.SPRINK PO SCH ×2 (09:03→20:03)
[2020-07-03] MEDS: NICOTINE 14MG PATCH. TD SCH (09:03)
[2020-07-03] MEDS: INSULIN GLARGINE SYRINGE. SQ SCH (10:25)
--- NOTE | 2020-07-03 14:41 | TX PLAN ---
Interdisciplinary Tx Plan Admission Information Jun 16, 2020 at 19:54 Legal Status (on Admission): Voluntary DPOA/Guardian Name: Jerman Carrera Contact Other Contact Name: Lucy Murry Other Contact Verified Code Status: Full Code Allergies: Coded Allergies: I S O L A T I O N *CONTACT* (Verified Allergy, Unknown, 06/21/20) ESBL amoxicillin (Verified Allergy, Unknown, 06/16/20) clavulanic acid (Verified Allergy, Unknown, 06/16/20) doxycycline (Verified Allergy, Unknown, 06/16/20) Diagnoses Primary Diagnosis: Schizoaffective Bipolar type exacerbation Reasons for Admission: Aggressive, Agitated, Combative, Poor impulse control Problem in Patient's Words: When she is bored,she creates trouble. Her behaviors have also increased and concerned that her medications are not stable. Additional Admission Comments: According to the intake, pt is manic,yelling out "help me", angry/agitated, aggressive towards staff and peers, invading others' space, intimidating, restless Problems Active Problems: Medication resistive Yelling out Agitated Aggressive Restless Inactive Problems: N/A Pt Strengths/Limitations Ability for Mize: Poor Cognitive Functioning/Ability: Poor Communication Skills/Ability: Fair Financial Resources: Fair Insight/Judgement: Poor Intellectual Ability: Fair Physical Health: Poor Social Skills: Poor Stability in Family: Good Stability in School/Work: Poor Verbal Skills: Fair Discharge Criteria Discharge Criteria: No need for close observ., Adequate arrangements @DC, Improved behavior, Improved mood/thought Preliminary Discharge Plan Preliminary DC Plan: Current Living Arrange. Special Precautions Fall Risk: Moderate Initial D/C Plan Pt will plan to return to [facility] Identified Discharge Needs: Psychiatric services Currently Utilized Resources Currently Utilized Resources/P: Primary Care Physician Telehealth for counseling Referrals Community Resources: Psychiatrist Identified Problems/Hx/Goals Objectives/Short-Term Goals Short Term Goals: Dec. Aggression, Dec. Hallucination/Delus, Dec. Outbursts, Improved Social Skills, Promote Coping Skill Short Term Goals in Patient's: N/A Interventions/Frequency Staff Interventions/Frequency&: Psychiatrist to assess pt at least 3x per week for medicaiton management. Social Work to assess pt at least 2x per week for discharge planning and identification of any barriers to care. Nursing to asses pt medication effects, behavioral management, and complete 15 minute checks. Encourage group participation in group activities (if applicable) or 1:1 engagement based off Activity Dept goals. History Vocational History: Pt worked for the post [employer] for many years. 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 Pt has a Bachelors and Masters in Business Administration Community Follow-up Primary Care Physician Telehealth for counseling Community Provider/Family Inpu: "Just make sure you keep her busy. It'll help everyone out in the long run" Treatment Plan Explained Patient/Instrument Adjuster had this treatment plan explained to him/her as indicated by the signature below and has been given the opportunity to ask questions and make suggestions: Date: Patient/Instrument Adjuster Signature: Status Update Update Pt is eating 100% of meals and sleeping on average 5 hours per night. Pt has b een more calm and compliant; however, pt did have an episode last night being combative with cares and yelling for "someone to call the elevator operator". Pt was placed in the [place] to calm down and ended up putting herself on the floor. Pt was eventually calm and compliant. Pt morning has been going well. Pt is on Depakote Sprinkles 500mg 0900, 750mg at 1700; Seroquel 25mg PRN, and Risperdal .5mg BID. Pt was initially scheduled to discharge on Friday. Due to a positive Covid case, pt discharge was postponed. SW to follow up with facility to discuss discharge options for quarantine once returned to [facility]. JEANNIE ROMERO Jul 03, 2020 14:41
[2020-07-03 16:19] VITALS: BP 118/80
[2020-07-03] MEDS: ATORVASTATIN CALCIUM 20 MG TABLET PO SCH (20:03)
[2020-07-03] MEDS: MELATONIN 3 MG TABLET PO SCH (20:03)
--- NOTE | 2020-07-03 21:01 | PDOC ---
Exam Note: Edgar Note: Please also refer to the separate dictated note~for this date of service dictated separately.~Patient seen individually. Discussed the patient with Nursing staff reviewed the chart.~Reviewed interim history and current functioning. Reviewed vital signs,~Labs/ Radiology~and current medications noted below. Continue current treatment with the changes noted in the dictated addendum note Assessment: Vital Signs/I&O: Vital Signs Date Time Temp Pulse Resp B/P (MAP) Pulse Ox O2 Delivery O2 Flow Rate FiO2 07/03/20 16:19 98.5 91 20 118/80 (93) 97 07/03/20 06:12 Room Air I & O 07/02/20 07/02/20 07/03/20 15:00 23:00 07:00 Intake Total 360 ml 320 ml Balance 360 ml 320 ml Labs: Laboratory Tests Test 07/03/20 07:47 07/03/20 12:02 07/03/20 16:59 07/03/20 19:07 Glucose (Fingerstick) 117 mg/dL (70-99) H 140 mg/dL (70-99) H 139 mg/dL (70-99) H 137 mg/dL (70-99) H Current Medications: Meds: Laboratory Tests Test 07/03/20 07:47 07/03/20 12:02 07/03/20 16:59 07/03/20 19:07 Glucose (Fingerstick) 117 mg/dL 140 mg/dL 139 mg/dL 137 mg/dL Current Medications Medications (Trade) Dose Ordered Sig/Alexx Route PRN Reason Start Time Stop Time Status Last Admin Dose Admin Acetaminophen (Tylenol) 650 mg PRN Q6HRS PRN PO MILD PAIN / TEMP > 100.3'F 06/16/20 20:30 07/02/20 21:11 Multi-Ingredient Ointment (Analgesic [place]) 1 rocio PRN QID PRN TP MUSCLE PAIN 06/16/20 20:30 Al Hydroxide/Mg Hydroxide (Mylanta Plus Xs) 15 ml PRN AFTMEALHC PRN PO DYSPEPSIA 06/16/20 20:30 Magnesium Hydroxide (Milk Of Magnesia) 2,400 mg PRN QHS PRN PO CONSTIPATION 06/16/20 20:30 Apixaban (Eliquis) 5 mg BID PO 06/16/20 21:00 07/03/20 20:03 Aspirin (Aspirin Enteric Coated) 81 mg DAILY PO 06/17/20 09:00 07/03/20 09:01 Divalproex Sodium (Depakote Sprinkles) 125 mg TID PO 06/16/20 21:30 06/17/20 11:56 DC 06/17/20 08:17 Gabapentin (Neurontin) 100 mg BID PO 06/16/20 21:30 07/03/20 20:03 Acetaminophen/ Hydrocodone Bitart (Lortab 5/325) 1 tab PRN Q4HRS PRN PO MOD-SEV PAIN 06/16/20 21:00 Linagliptin (Tradjenta) 5 mg DAILY PO 06/17/20 09:00 07/03/20 09:02 Melatonin (Melatonin) 3 mg HS PO 06/16/20 21:30 07/03/20 20:03 Metformin HCl (Glucophage) 750 mg BIDWMEALS PO 06/17/20 08:00 07/03/20 17:03 Metoprolol Succinate (Toprol Xl) 25 mg DAILY PO 06/17/20 09:00 06/20/20 16:14 DC 06/20/20 08:29 Nicotine (Nicoderm Cq 14mg Patch) 1 patch DAILY TD 06/17/20 09:00 07/03/20 09:03 Quetiapine Fumarate (SEROquel) 50 mg BID PO 06/16/20 21:30 06/17/20 11:56 DC 06/17/20 08:16 Atorvastatin Calcium (Lipitor) 40 mg QHS PO 06/16/20 21:30 07/03/20 20:03 Cyanocobalamin (Vitamin B-12) 500 mcg DAILY PO 06/17/20 09:00 07/03/20 09:02 Insulin Glargine (Lantus Syringe) 35 unit DAILY SQ 06/17/20 09:00 07/03/20 10:25 Lactobacillus Rhamnosus (Culturelle) 1 cap DAILY PO 06/17/20 09:00 07/03/20 09:02 Multivitamins/ Calcium (Thera-M Plus) 1 tab DAILY PO 06/17/20 09:00 07/03/20 09:02 Pantoprazole Sodium (Protonix) 40 mg DAILY PO 06/17/20 09:00 07/03/20 09:02 Vitamin D (Vitamin D3) 500 unit DAILY PO 06/17/20 09:00 07/03/20 09:01 Insulin Human Lispro (HumaLOG) 0-5 UNITS TIDWMEALS SQ 06/17/20 08:00 06/17/20 12:18 Dextrose (Dextrose 50%-Water Syringe) 12.5 gm PRN Q15MIN PRN IV SEE COMMENTS 06/16/20 21:00 Olanzapine (ZyPREXA ZYDIS) 2.5 mg PRN Q2HRS PRN PO PSYCHOSIS/Agitation 06/16/20 21:15 06/18/20 18:00 DC 06/18/20 08:45 Divalproex Sodium (Depakote Sprinkles) 250 mg TID PO 06/17/20 14:00 06/20/20 18:07 DC 06/20/20 13:04 Quetiapine Fumarate (SEROquel) 150 mg HS PO 06/17/20 21:00 06/21/20 17:15 DC 06/20/20 20:53 Quetiapine Fumarate (SEROquel) 25 mg PRN Q4HRS PRN PO AGITATION 06/18/20 10:00 06/28/20 12:23 Trimethoprim/ Sulfamethoxazole (Bactrim Ss) 1 tab BID PO 06/20/20 21:00 06/28/20 21:00 DC 06/28/20 20:39 Metoprolol Succinate (Toprol Xl) 50 mg DAILY PO 06/21/20 09:00 07/03/20 09:02 Divalproex Sodium (Depakote Sprinkles) 500 mg 0900,1700 PO 06/21/20 09:00 06/24/20 17:10 DC 06/24/20 08:43 Risperidone (RisperDAL) 0.5 mg BID PO 06/21/20 21:00 07/03/20 20:03 Hydralazine HCl (Apresoline) 25 mg PRN TID PRN PO anxiety 06/21/20 17:30 06/28/20 11:51 DC 06/27/20 15:50 Divalproex Sodium (Depakote Sprinkles) 500 mg 0900 PO 06/25/20 09:00 07/03/20 09:03 Divalproex Sodium (Depakote Sprinkles) 750 mg HS PO 06/24/20 21:00 07/03/20 20:03 Hydroxyzine HCl (Atarax) 25 mg PRN TID PRN PO ANXIETY / AGITATION 06/28/20 12:00 07/03/20 05:47 Neomycin/ Polymyxin/ Bacitracin (Triple Antibiotic Ointment) 1 pkt BID TP 07/01/20 21:00 07/03/20 20:03 I have reviewed the current psychotropics carefully including drug interactions. Risk benefit ratio favors no change other than as noted in my dictated progress note. Diagnosis: Problems: (1) Schizoaffective disorder, bipolar type (2) Impulse control disorder, unspecified (3) Anxiety disorder, unspecified (4) Bipolar disorder, curr episode mixed, severe, with psychotic features CHAVO WANG MD Jul 03, 2020 21:01
[2020-07-04 06:29] VITALS: BP 149/67
[2020-07-04 07:21] LABS: BASO % 0 % (0-3); EOS # 0.2 x10^3/uL (0.0-0.7); EOS % 2 % (0-3); HEMATOCRIT 34.2 % (36.0-47.0); HEMOGLOBIN 10.9 g/dL (12.0-15.5); LYMPH # 2.5 x10^3/uL (1.0-4.8); LYMPH % 30 % (24-48); MEAN CORPUSCULAR HEMOGLOBIN 28 pg (25-35); MEAN CORPUSCULAR HGB CONC 32 g/dL (31-37); MEAN CORPUSCULAR VOLUME 88 fL (79-100); MONO # 0.7 x10^3/uL (0.0-1.1); MONO % 9 % (0-9); NEUT # 4.8 x10^3uL (1.8-7.7); NEUT % 58 % (31-73); PLATELET COUNT 198 x10^3/uL (140-400); RED BLOOD COUNT 3.88 x10^6/uL (3.50-5.40); WHITE BLOOD COUNT 8.3 x10^3/uL (4.0-11.0)
[2020-07-04 07:32] LABS: ALBUMIN 2.7 g/dL (3.4-5.0); ALBUMIN/GLOBULIN RATIO 0.8 (1.0-1.7); CALCIUM 8.4 mg/dL (8.5-10.1); CREATININE 0.9 mg/dL (0.6-1.0); GFR 62.1; TOTAL BILIRUBIN 0.2 mg/dL (0.2-1.0); TOTAL PROTEIN 5.9 g/dL (6.4-8.2)
[2020-07-04] MEDS: MULTIVITAMIN with MINERAL TABLET. PO SCH (08:10)
[2020-07-04] MEDS: INSULIN LISPRO 300 UNITS/3 ML VIAL. SQ SCH ×3 (08:10→17:07)
[2020-07-04] MEDS: CHOLECALCIFEROL (VITAMIN D3) 1,000 UNIT TABLET PO SCH (08:11)
[2020-07-04] MEDS: PANTOPRAZOLE 40 MG TABLET. PO SCH (08:11)
[2020-07-04] MEDS: DIVALPROEX 125 MG CAP.SPRINK PO SCH ×2 (08:11→20:19)
[2020-07-04] MEDS: ASPIRIN ENTERIC COATED 81 MG TABLET.DR. PO SCH (08:11)
[2020-07-04] MEDS: LINAGLIPTIN 5 MG TABLET PO SCH (08:11)
[2020-07-04] MEDS: METOPROLOL SUCC 24HR ER 50 MG TAB.ER.24H. PO SCH (08:11)
[2020-07-04] MEDS: metFORMIN 500 MG TABLET PO SCH ×2 (08:12→17:04)
[2020-07-04] MEDS: GABAPENTIN 100 MG CAPSULE. PO SCH ×2 (08:12→20:19)
[2020-07-04] MEDS: CYANOCOBALAMIN (VITAMIN B-12) 250 MCG TABLET. PO SCH (08:12)
[2020-07-04] MEDS: LACTOBACILLUS RHAMNOSUS GG 1 CAPSULE. PO SCH (08:12)
[2020-07-04] MEDS: APIXABAN 5 MG TABLET. PO SCH ×2 (08:12→20:18)
[2020-07-04] MEDS: NICOTINE 14MG PATCH. TD SCH (08:13)
[2020-07-04] MEDS: risperiDONE 0.5 MG TABLET. PO SCH ×2 (08:13→20:18)
[2020-07-04] MEDS: NEOMY/BACITR/POLYMYXIN OINT PACKET. TP SCH ×2 (08:13→20:19)
[2020-07-04] MEDS: INSULIN GLARGINE SYRINGE. SQ SCH (09:36)
[2020-07-04 15:34] VITALS: BP 167/91
[2020-07-04] MEDS: MELATONIN 3 MG TABLET PO SCH (20:18)
[2020-07-04] MEDS: ATORVASTATIN CALCIUM 20 MG TABLET PO SCH (20:18)
--- NOTE | 2020-07-04 20:54 | PDOC ---
Exam Note: Edgar Note: Please also refer to the separate dictated note~for this date of service dictated separately.~Patient seen individually. Discussed the patient with Nursing staff reviewed the chart.~Reviewed interim history and current functioning. Reviewed vital signs,~Labs/ Radiology~and current medications noted below. Continue current treatment with the changes noted in the dictated addendum note Assessment: Vital Signs/I&O: Vital Signs Date Time Temp Pulse Resp B/P (MAP) Pulse Ox O2 Delivery O2 Flow Rate FiO2 07/04/20 15:34 97.8 88 17 167/91 (116) 96 07/04/20 06:29 Room Air I & O 07/03/20 07/03/20 07/04/20 15:00 23:00 07:00 Intake Total 720 ml 360 ml Balance 720 ml 360 ml Labs: Laboratory Tests Test 07/04/20 06:33 07/04/20 07:40 07/04/20 11:30 07/04/20 17:01 White Blood Count 8.3 x10^3/uL (4.0-11.0) Red Blood Count 3.88 x10^6/uL (3.50-5.40) Hemoglobin 10.9 g/dL (12.0-15.5) L Hematocrit 34.2 % (36.0-47.0) L Mean Corpuscular Volume 88 fL (79-100) Mean Corpuscular Hemoglobin 28 pg (25-35) Mean Corpuscular Hemoglobin Concent 32 g/dL (31-37) Red Cell Distribution Width 16.0 % (11.5-14.5) H Platelet Count 198 x10^3/uL (140-400) Neutrophils (%) (Auto) 58 % (31-73) Lymphocytes (%) (Auto) 30 % (24-48) Monocytes (%) (Auto) 9 % (0-9) Eosinophils (%) (Auto) 2 % (0-3) Basophils (%) (Auto) 0 % (0-3) Neutrophils # (Auto) 4.8 x10^3uL (1.8-7.7) Lymphocytes # (Auto) 2.5 x10^3/uL (1.0-4.8) Monocytes # (Auto) 0.7 x10^3/uL (0.0-1.1) Eosinophils # (Auto) 0.2 x10^3/uL (0.0-0.7) Basophils # (Auto) 0.0 x10^3/uL (0.0-0.2) Sodium Level 141 mmol/L (136-145) Potassium Level 4.0 mmol/L (3.5-5.1) Chloride Level 105 mmol/L (98-107) Carbon Dioxide Level 26 mmol/L (21-32) Anion Gap 10 (6-14) Blood Urea Nitrogen 23 mg/dL (7-20) H Creatinine 0.9 mg/dL (0.6-1.0) Estimated GFR (Cockcroft-Gault) 62.1 BUN/Creatinine Ratio 26 (6-20) H Glucose Level 76 mg/dL (70-99) Calcium Level 8.4 mg/dL (8.5-10.1) L Total Bilirubin 0.2 mg/dL (0.2-1.0) Aspartate Amino Transferase (AST) 17 U/L (15-37) Alanine Aminotransferase (ALT) 27 U/L (14-59) Alkaline Phosphatase 56 U/L (46-116) Total Protein 5.9 g/dL (6.4-8.2) L Albumin 2.7 g/dL (3.4-5.0) L Albumin/Globulin Ratio 0.8 (1.0-1.7) L Glucose (Fingerstick) 81 mg/dL (70-99) 118 mg/dL (70-99) H 186 mg/dL (70-99) H Test 07/04/20 19:11 Glucose (Fingerstick) 177 mg/dL (70-99) H Current Medications: Meds: Laboratory Tests Test 07/04/20 06:33 07/04/20 07:40 07/04/20 11:30 07/04/20 17:01 White Blood Count 8.3 x10^3/uL Red Blood Count 3.88 x10^6/uL Hemoglobin 10.9 g/dL Hematocrit 34.2 % Mean Corpuscular Volume 88 fL Mean Corpuscular Hemoglobin 28 pg Mean Corpuscular Hemoglobin Concent 32 g/dL Red Cell Distribution Width 16.0 % Platelet Count 198 x10^3/uL Neutrophils (%) (Auto) 58 % Lymphocytes (%) (Auto) 30 % Monocytes (%) (Auto) 9 % Eosinophils (%) (Auto) 2 % Basophils (%) (Auto) 0 % Neutrophils # (Auto) 4.8 x10^3uL Lymphocytes # (Auto) 2.5 x10^3/uL Monocytes # (Auto) 0.7 x10^3/uL Eosinophils # (Auto) 0.2 x10^3/uL Basophils # (Auto) 0.0 x10^3/uL Sodium Level 141 mmol/L Potassium Level 4.0 mmol/L Chloride Level 105 mmol/L Carbon Dioxide Level 26 mmol/L Anion Gap 10 Blood Urea Nitrogen 23 mg/dL Creatinine 0.9 mg/dL Estimated GFR (Cockcroft-Gault) 62.1 BUN/Creatinine Ratio 26 Glucose Level 76 mg/dL Calcium Level 8.4 mg/dL Total Bilirubin 0.2 mg/dL Aspartate Amino Transf (AST/SGOT) 17 U/L Alanine Aminotransferase (ALT/SGPT) 27 U/L Alkaline Phosphatase 56 U/L Total Protein 5.9 g/dL Albumin 2.7 g/dL Albumin/Globulin Ratio 0.8 Glucose (Fingerstick) 81 mg/dL 118 mg/dL 186 mg/dL Test 07/04/20 19:11 Glucose (Fingerstick) 177 mg/dL Current Medications Medications (Trade) Dose Ordered Sig/Alexx Route PRN Reason Start Time Stop Time Status Last Admin Dose Admin Acetaminophen (Tylenol) 650 mg PRN Q6HRS PRN PO MILD PAIN / TEMP > 100.3'F 06/16/20 20:30 07/02/20 21:11 Multi-Ingredient Ointment (Analgesic [place]) 1 rocio PRN QID PRN TP MUSCLE PAIN 06/16/20 20:30 Al Hydroxide/Mg Hydroxide (Mylanta Plus Xs) 15 ml PRN AFTMEALHC PRN PO DYSPEPSIA 06/16/20 20:30 Magnesium Hydroxide (Milk Of Magnesia) 2,400 mg PRN QHS PRN PO CONSTIPATION 06/16/20 20:30 Apixaban (Eliquis) 5 mg BID PO 06/16/20 21:00 07/04/20 20:18 Aspirin (Aspirin Enteric Coated) 81 mg DAILY PO 06/17/20 09:00 07/04/20 08:11 Divalproex Sodium (Depakote Sprinkles) 125 mg TID PO 06/16/20 21:30 06/17/20 11:56 DC 06/17/20 08:17 Gabapentin (Neurontin) 100 mg BID PO 06/16/20 21:30 07/04/20 20:19 Acetaminophen/ Hydrocodone Bitart (Lortab 5/325) 1 tab PRN Q4HRS PRN PO MOD-SEV PAIN 06/16/20 21:00 Linagliptin (Tradjenta) 5 mg DAILY PO 06/17/20 09:00 07/04/20 08:11 Melatonin (Melatonin) 3 mg HS PO 06/16/20 21:30 07/04/20 20:18 Metformin HCl (Glucophage) 750 mg BIDWMEALS PO 06/17/20 08:00 07/04/20 17:04 Metoprolol Succinate (Toprol Xl) 25 mg DAILY PO 06/17/20 09:00 06/20/20 16:14 DC 06/20/20 08:29 Nicotine (Nicoderm Cq 14mg Patch) 1 patch DAILY TD 06/17/20 09:00 07/04/20 08:13 Quetiapine Fumarate (SEROquel) 50 mg BID PO 06/16/20 21:30 06/17/20 11:56 DC 06/17/20 08:16 Atorvastatin Calcium (Lipitor) 40 mg QHS PO 06/16/20 21:30 07/04/20 20:18 Cyanocobalamin (Vitamin B-12) 500 mcg DAILY PO 06/17/20 09:00 07/04/20 08:12 Insulin Glargine (Lantus Syringe) 35 unit DAILY SQ 06/17/20 09:00 07/04/20 09:36 Lactobacillus Rhamnosus (Culturelle) 1 cap DAILY PO 06/17/20 09:00 07/04/20 08:12 Multivitamins/ Calcium (Thera-M Plus) 1 tab DAILY PO 06/17/20 09:00 07/04/20 08:10 Pantoprazole Sodium (Protonix) 40 mg DAILY PO 06/17/20 09:00 07/04/20 08:11 Vitamin D (Vitamin D3) 500 unit DAILY PO 06/17/20 09:00 07/04/20 08:11 Insulin Human Lispro (HumaLOG) 0-5 UNITS TIDWMEALS SQ 06/17/20 08:00 06/17/20 12:18 Dextrose (Dextrose 50%-Water Syringe) 12.5 gm PRN Q15MIN PRN IV SEE COMMENTS 06/16/20 21:00 Olanzapine (ZyPREXA ZYDIS) 2.5 mg PRN Q2HRS PRN PO PSYCHOSIS/Agitation 06/16/20 21:15 06/18/20 18:00 DC 06/18/20 08:45 Divalproex Sodium (Depakote Sprinkles) 250 mg TID PO 06/17/20 14:00 06/20/20 18:07 DC 06/20/20 13:04 Quetiapine Fumarate (SEROquel) 150 mg HS PO 06/17/20 21:00 06/21/20 17:15 DC 06/20/20 20:53 Quetiapine Fumarate (SEROquel) 25 mg PRN Q4HRS PRN PO AGITATION 06/18/20 10:00 06/28/20 12:23 Trimethoprim/ Sulfamethoxazole (Bactrim Ss) 1 tab BID PO 06/20/20 21:00 06/28/20 21:00 DC 06/28/20 20:39 Metoprolol Succinate (Toprol Xl) 50 mg DAILY PO 06/21/20 09:00 07/04/20 08:11 Divalproex Sodium (Depakote Sprinkles) 500 mg 0900,1700 PO 06/21/20 09:00 06/24/20 17:10 DC 06/24/20 08:43 Risperidone (RisperDAL) 0.5 mg BID PO 06/21/20 21:00 07/04/20 20:18 Hydralazine HCl (Apresoline) 25 mg PRN TID PRN PO anxiety 06/21/20 17:30 06/28/20 11:51 DC 06/27/20 15:50 Divalproex Sodium (Depakote Sprinkles) 500 mg 0900 PO 06/25/20 09:00 07/04/20 08:11 Divalproex Sodium (Depakote Sprinkles) 750 mg HS PO 06/24/20 21:00 07/04/20 20:19 Hydroxyzine HCl (Atarax) 25 mg PRN TID PRN PO ANXIETY / AGITATION 06/28/20 12:00 07/03/20 05:47 Neomycin/ Polymyxin/ Bacitracin (Triple Antibiotic Ointment) 1 pkt BID TP 07/01/20 21:00 07/04/20 20:19 I have reviewed the current psychotropics carefully including drug interactions. Risk benefit ratio favors no change other than as noted in my dictated progress note. Diagnosis: Problems: (1) Schizoaffective disorder, bipolar type (2) Impulse control disorder, unspecified (3) Anxiety disorder, unspecified (4) Bipolar disorder, curr episode mixed, severe, with psychotic features CHAVO WANG MD Jul 04, 2020 20:54
[2020-07-05 06:18] VITALS: BP 139/72
[2020-07-05] MEDS: INSULIN LISPRO 300 UNITS/3 ML VIAL. SQ SCH ×3 (08:00→17:00)
--- NOTE | 2020-07-05 08:39 | PDOC ---
Exam Note: Edgar Note: This note is a late entry for 07/03/2020 covers elements not covered in my initial note. Subjective: The patient was seen face to face in the evening of 07/03/2020 with Carole MELGAR. Discussed with nursing staff, reviewed the chart. She slept 5-3/4 hours previous night. The patient has been obsessed about her left lower extremity amputation and I processed this with her. It seems stable. She was irritable previous night, arguing with the roommate, compliance with medications. The patient is repeatedly asking about discharge plans. Initial plans were for discharge on 07/03 but this has been postponed. We will defer to social service staff. Discussed this with the patient. She was ultimately able to accept this. 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 No CV, , pulmonary, eye system symptoms on review. Mental Status Exam: The patient is reasonably oriented. Speech has some latency, coherent, later somewhat pressured. Abstraction is fair. Computation is impaired. Language function is intact. Attention span is short. Mood and affect somewhat withdrawn at times. Laboratory Data: Reviewed. Impression: Schizoaffective disorder bipolar type, mixed versus bipolar disorder mixed with psychotic features. Anxiety disorder unspecified. Impulse control disorder unspecified. Plan: No change from initial note. Assessment: Vital Signs/I&O: Vital Signs Date Time Temp Pulse Resp B/P (MAP) Pulse Ox O2 Delivery O2 Flow Rate FiO2 07/05/20 06:18 98.0 71 16 139/72 (94) 96 Room Air I & O 07/04/20 07/04/20 07/05/20 15:00 23:00 07:00 Intake Total 720 ml 480 ml Balance 720 ml 480 ml Labs: Laboratory Tests Test 07/04/20 11:30 07/04/20 17:01 07/04/20 19:11 07/05/20 07:32 Glucose (Fingerstick) 118 mg/dL (70-99) H 186 mg/dL (70-99) H 177 mg/dL (70-99) H 81 mg/dL (70-99) Current Medications: Meds: Laboratory Tests Test 07/04/20 11:30 07/04/20 17:01 07/04/20 19:11 07/05/20 07:32 Glucose (Fingerstick) 118 mg/dL 186 mg/dL 177 mg/dL 81 mg/dL Current Medications Medications (Trade) Dose Ordered Sig/Alexx Route PRN Reason Start Time Stop Time Status Last Admin Dose Admin Acetaminophen (Tylenol) 650 mg PRN Q6HRS PRN PO MILD PAIN / TEMP > 100.3'F 06/16/20 20:30 07/02/20 21:11 Multi-Ingredient Ointment (Analgesic [place]) 1 rocio PRN QID PRN TP MUSCLE PAIN 06/16/20 20:30 Al Hydroxide/Mg Hydroxide (Mylanta Plus Xs) 15 ml PRN AFTMEALHC PRN PO DYSPEPSIA 06/16/20 20:30 Magnesium Hydroxide (Milk Of Magnesia) 2,400 mg PRN QHS PRN PO CONSTIPATION 06/16/20 20:30 Apixaban (Eliquis) 5 mg BID PO 06/16/20 21:00 07/04/20 20:18 Aspirin (Aspirin Enteric Coated) 81 mg DAILY PO 06/17/20 09:00 07/04/20 08:11 Divalproex Sodium (Depakote Sprinkles) 125 mg TID PO 06/16/20 21:30 06/17/20 11:56 DC 06/17/20 08:17 Gabapentin (Neurontin) 100 mg BID PO 06/16/20 21:30 07/04/20 20:19 Acetaminophen/ Hydrocodone Bitart (Lortab 5/325) 1 tab PRN Q4HRS PRN PO MOD-SEV PAIN 06/16/20 21:00 Linagliptin (Tradjenta) 5 mg DAILY PO 06/17/20 09:00 07/04/20 08:11 Melatonin (Melatonin) 3 mg HS PO 06/16/20 21:30 07/04/20 20:18 Metformin HCl (Glucophage) 750 mg BIDWMEALS PO 06/17/20 08:00 07/04/20 17:04 Metoprolol Succinate (Toprol Xl) 25 mg DAILY PO 06/17/20 09:00 06/20/20 16:14 DC 06/20/20 08:29 Nicotine (Nicoderm Cq 14mg Patch) 1 patch DAILY TD 06/17/20 09:00 07/04/20 08:13 Quetiapine Fumarate (SEROquel) 50 mg BID PO 06/16/20 21:30 06/17/20 11:56 DC 06/17/20 08:16 Atorvastatin Calcium (Lipitor) 40 mg QHS PO 06/16/20 21:30 07/04/20 20:18 Cyanocobalamin (Vitamin B-12) 500 mcg DAILY PO 06/17/20 09:00 07/04/20 08:12 Insulin Glargine (Lantus Syringe) 35 unit DAILY SQ 06/17/20 09:00 07/04/20 09:36 Lactobacillus Rhamnosus (Culturelle) 1 cap DAILY PO 06/17/20 09:00 07/04/20 08:12 Multivitamins/ Calcium (Thera-M Plus) 1 tab DAILY PO 06/17/20 09:00 07/04/20 08:10 Pantoprazole Sodium (Protonix) 40 mg DAILY PO 06/17/20 09:00 07/04/20 08:11 Vitamin D (Vitamin D3) 500 unit DAILY PO 06/17/20 09:00 07/04/20 08:11 Insulin Human Lispro (HumaLOG) 0-5 UNITS TIDWMEALS SQ 06/17/20 08:00 06/17/20 12:18 Dextrose (Dextrose 50%-Water Syringe) 12.5 gm PRN Q15MIN PRN IV SEE COMMENTS 06/16/20 21:00 Olanzapine (ZyPREXA ZYDIS) 2.5 mg PRN Q2HRS PRN PO PSYCHOSIS/Agitation 06/16/20 21:15 06/18/20 18:00 DC 06/18/20 08:45 Divalproex Sodium (Depakote Sprinkles) 250 mg TID PO 06/17/20 14:00 06/20/20 18:07 DC 06/20/20 13:04 Quetiapine Fumarate (SEROquel) 150 mg HS PO 06/17/20 21:00 06/21/20 17:15 DC 06/20/20 20:53 Quetiapine Fumarate (SEROquel) 25 mg PRN Q4HRS PRN PO AGITATION 06/18/20 10:00 06/28/20 12:23 Trimethoprim/ Sulfamethoxazole (Bactrim Ss) 1 tab BID PO 06/20/20 21:00 06/28/20 21:00 DC 06/28/20 20:39 Metoprolol Succinate (Toprol Xl) 50 mg DAILY PO 06/21/20 09:00 07/04/20 08:11 Divalproex Sodium (Depakote Sprinkles) 500 mg 0900,1700 PO 06/21/20 09:00 06/24/20 17:10 DC 06/24/20 08:43 Risperidone (RisperDAL) 0.5 mg BID PO 06/21/20 21:00 07/04/20 20:18 Hydralazine HCl (Apresoline) 25 mg PRN TID PRN PO anxiety 06/21/20 17:30 06/28/20 11:51 DC 06/27/20 15:50 Divalproex Sodium (Depakote Sprinkles) 500 mg 0900 PO 06/25/20 09:00 07/04/20 08:11 Divalproex Sodium (Depakote Sprinkles) 750 mg HS PO 06/24/20 21:00 07/04/20 20:19 Hydroxyzine HCl (Atarax) 25 mg PRN TID PRN PO ANXIETY / AGITATION 06/28/20 12:00 07/03/20 05:47 Neomycin/ Polymyxin/ Bacitracin (Triple Antibiotic Ointment) 1 pkt BID TP 07/01/20 21:00 07/04/20 20:19 I have reviewed the current psychotropics carefully including drug interactions. Risk benefit ratio favors no change other than as noted in my dictated progress note. Diagnosis: Problems: (1) Schizoaffective disorder, bipolar type (2) Impulse control disorder, unspecified (3) Anxiety disorder, unspecified (4) Bipolar disorder, curr episode mixed, severe, with psychotic features CHAVO WANG MD Jul 05, 2020 08:39
[2020-07-05] MEDS: NICOTINE 14MG PATCH. TD SCH (08:47)
[2020-07-05] MEDS: metFORMIN 500 MG TABLET PO SCH ×2 (08:48→17:29)
[2020-07-05] MEDS: LINAGLIPTIN 5 MG TABLET PO SCH (08:48)
[2020-07-05] MEDS: CHOLECALCIFEROL (VITAMIN D3) 1,000 UNIT TABLET PO SCH (08:48)
[2020-07-05] MEDS: LACTOBACILLUS RHAMNOSUS GG 1 CAPSULE. PO SCH (08:48)
[2020-07-05] MEDS: risperiDONE 0.5 MG TABLET. PO SCH ×2 (08:48→20:23)
[2020-07-05] MEDS: PANTOPRAZOLE 40 MG TABLET. PO SCH (08:48)
[2020-07-05] MEDS: ASPIRIN ENTERIC COATED 81 MG TABLET.DR. PO SCH (08:48)
[2020-07-05] MEDS: MULTIVITAMIN with MINERAL TABLET. PO SCH (08:48)
[2020-07-05] MEDS: GABAPENTIN 100 MG CAPSULE. PO SCH ×2 (08:48→20:22)
[2020-07-05] MEDS: APIXABAN 5 MG TABLET. PO SCH ×2 (08:49→20:23)
[2020-07-05] MEDS: DIVALPROEX 125 MG CAP.SPRINK PO SCH ×2 (08:49→20:22)
[2020-07-05] MEDS: METOPROLOL SUCC 24HR ER 50 MG TAB.ER.24H. PO SCH (08:49)
[2020-07-05] MEDS: NEOMY/BACITR/POLYMYXIN OINT PACKET. TP SCH ×2 (08:52→20:22)
[2020-07-05] MEDS: CYANOCOBALAMIN (VITAMIN B-12) 250 MCG TABLET. PO SCH (08:52)
[2020-07-05] MEDS: INSULIN GLARGINE SYRINGE. SQ SCH (08:53)
--- NOTE | 2020-07-05 09:06 | PDOC ---
Exam Note: Edgar Note: This note is a late entry for 07/04/2020 covers elements not covered in my initial note. Subjective: The patient was seen face to face in the evening of 07/04/2020 with nursing staff, reviewed the chart. She slept 5 hours previous night. Overall the patient has done reasonably well. She has had an episode of emesis after breakfast. We will defer to Dr. Reddy. Blood sugar has been unremarkable. 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 No CV, , pulmonary, eye system symptoms on review. Mental Status Exam: The patient is reasonably oriented. She was again obsessing about discharge plans and social service staff will address with the patient. Abstraction is fair. Computation is impaired. Language function is intact. Attention span is short. Mood and affect somewhat withdrawn at times. Laboratory Data: Reviewed. Impression: Schizoaffective disorder bipolar type, mixed versus bipolar disorder mixed with psychotic features. Anxiety disorder unspecified. Impulse control disorder unspecified. Plan: No change from initial note. Assessment: Vital Signs/I&O: Vital Signs Date Time Temp Pulse Resp B/P (MAP) Pulse Ox O2 Delivery O2 Flow Rate FiO2 07/05/20 08:49 71 139/72 07/05/20 06:18 98.0 16 96 Room Air I & O 07/04/20 07/04/20 07/05/20 15:00 23:00 07:00 Intake Total 720 ml 480 ml Balance 720 ml 480 ml Labs: Laboratory Tests Test 07/04/20 11:30 07/04/20 17:01 07/04/20 19:11 07/05/20 07:32 Glucose (Fingerstick) 118 mg/dL (70-99) H 186 mg/dL (70-99) H 177 mg/dL (70-99) H 81 mg/dL (70-99) Current Medications: Meds: Laboratory Tests Test 07/04/20 11:30 07/04/20 17:01 07/04/20 19:11 07/05/20 07:32 Glucose (Fingerstick) 118 mg/dL 186 mg/dL 177 mg/dL 81 mg/dL Current Medications Medications (Trade) Dose Ordered Sig/Alexx Route PRN Reason Start Time Stop Time Status Last Admin Dose Admin Acetaminophen (Tylenol) 650 mg PRN Q6HRS PRN PO MILD PAIN / TEMP > 100.3'F 06/16/20 20:30 07/02/20 21:11 Multi-Ingredient Ointment (Analgesic [place]) 1 rocio PRN QID PRN TP MUSCLE PAIN 06/16/20 20:30 Al Hydroxide/Mg Hydroxide (Mylanta Plus Xs) 15 ml PRN AFTMEALHC PRN PO DYSPEPSIA 06/16/20 20:30 Magnesium Hydroxide (Milk Of Magnesia) 2,400 mg PRN QHS PRN PO CONSTIPATION 06/16/20 20:30 Apixaban (Eliquis) 5 mg BID PO 06/16/20 21:00 07/05/20 08:49 Aspirin (Aspirin Enteric Coated) 81 mg DAILY PO 06/17/20 09:00 07/05/20 08:48 Divalproex Sodium (Depakote Sprinkles) 125 mg TID PO 06/16/20 21:30 06/17/20 11:56 DC 06/17/20 08:17 Gabapentin (Neurontin) 100 mg BID PO 06/16/20 21:30 07/05/20 08:48 Acetaminophen/ Hydrocodone Bitart (Lortab 5/325) 1 tab PRN Q4HRS PRN PO MOD-SEV PAIN 06/16/20 21:00 Linagliptin (Tradjenta) 5 mg DAILY PO 06/17/20 09:00 07/05/20 08:48 Melatonin (Melatonin) 3 mg HS PO 06/16/20 21:30 07/04/20 20:18 Metformin HCl (Glucophage) 750 mg BIDWMEALS PO 06/17/20 08:00 07/05/20 08:48 Metoprolol Succinate (Toprol Xl) 25 mg DAILY PO 06/17/20 09:00 06/20/20 16:14 DC 06/20/20 08:29 Nicotine (Nicoderm Cq 14mg Patch) 1 patch DAILY TD 06/17/20 09:00 07/05/20 08:47 Quetiapine Fumarate (SEROquel) 50 mg BID PO 06/16/20 21:30 06/17/20 11:56 DC 06/17/20 08:16 Atorvastatin Calcium (Lipitor) 40 mg QHS PO 06/16/20 21:30 07/04/20 20:18 Cyanocobalamin (Vitamin B-12) 500 mcg DAILY PO 06/17/20 09:00 07/05/20 08:52 Insulin Glargine (Lantus Syringe) 35 unit DAILY SQ 06/17/20 09:00 07/05/20 08:53 Lactobacillus Rhamnosus (Culturelle) 1 cap DAILY PO 06/17/20 09:00 07/05/20 08:48 Multivitamins/ Calcium (Thera-M Plus) 1 tab DAILY PO 06/17/20 09:00 07/05/20 08:48 Pantoprazole Sodium (Protonix) 40 mg DAILY PO 06/17/20 09:00 07/05/20 08:48 Vitamin D (Vitamin D3) 500 unit DAILY PO 06/17/20 09:00 07/05/20 08:48 Insulin Human Lispro (HumaLOG) 0-5 UNITS TIDWMEALS SQ 06/17/20 08:00 06/17/20 12:18 Dextrose (Dextrose 50%-Water Syringe) 12.5 gm PRN Q15MIN PRN IV SEE COMMENTS 06/16/20 21:00 Olanzapine (ZyPREXA ZYDIS) 2.5 mg PRN Q2HRS PRN PO PSYCHOSIS/Agitation 06/16/20 21:15 06/18/20 18:00 DC 06/18/20 08:45 Divalproex Sodium (Depakote Sprinkles) 250 mg TID PO 06/17/20 14:00 06/20/20 18:07 DC 06/20/20 13:04 Quetiapine Fumarate (SEROquel) 150 mg HS PO 06/17/20 21:00 06/21/20 17:15 DC 06/20/20 20:53 Quetiapine Fumarate (SEROquel) 25 mg PRN Q4HRS PRN PO AGITATION 06/18/20 10:00 06/28/20 12:23 Trimethoprim/ Sulfamethoxazole (Bactrim Ss) 1 tab BID PO 06/20/20 21:00 06/28/20 21:00 DC 06/28/20 20:39 Metoprolol Succinate (Toprol Xl) 50 mg DAILY PO 06/21/20 09:00 07/05/20 08:49 Divalproex Sodium (Depakote Sprinkles) 500 mg 0900,1700 PO 06/21/20 09:00 06/24/20 17:10 DC 06/24/20 08:43 Risperidone (RisperDAL) 0.5 mg BID PO 06/21/20 21:00 07/05/20 08:48 Hydralazine HCl (Apresoline) 25 mg PRN TID PRN PO anxiety 06/21/20 17:30 06/28/20 11:51 DC 06/27/20 15:50 Divalproex Sodium (Depakote Sprinkles) 500 mg 0900 PO 06/25/20 09:00 07/05/20 08:49 Divalproex Sodium (Depakote Sprinkles) 750 mg HS PO 06/24/20 21:00 07/04/20 20:19 Hydroxyzine HCl (Atarax) 25 mg PRN TID PRN PO ANXIETY / AGITATION 06/28/20 12:00 07/03/20 05:47 Neomycin/ Polymyxin/ Bacitracin (Triple Antibiotic Ointment) 1 pkt BID TP 07/01/20 21:00 07/05/20 08:52 I have reviewed the current psychotropics carefully including drug interactions. Risk benefit ratio favors no change other than as noted in my dictated progress note. Diagnosis: Problems: (1) Schizoaffective disorder, bipolar type (2) Impulse control disorder, unspecified (3) Anxiety disorder, unspecified (4) Bipolar disorder, curr episode mixed, severe, with psychotic features CHAVO WANG MD Jul 05, 2020 09:06
[2020-07-05] MEDS: hydrOXYzine HCL 25 MG TABLET PO PRN ×2 (11:38→20:22)
[2020-07-05 15:55] VITALS: BP 135/99
[2020-07-05] MEDS: ATORVASTATIN CALCIUM 20 MG TABLET PO SCH (20:22)
[2020-07-05] MEDS: MELATONIN 3 MG TABLET PO SCH (20:22)
--- NOTE | 2020-07-05 20:54 | PDOC ---
Exam Note: Edgar Note: Please also refer to the separate dictated note~for this date of service dictated separately.~Patient seen individually. Discussed the patient with Nursing staff reviewed the chart.~Reviewed interim history and current functioning. Reviewed vital signs,~Labs/ Radiology~and current medications noted below. Continue current treatment with the changes noted in the dictated addendum note Assessment: Vital Signs/I&O: Vital Signs Date Time Temp Pulse Resp B/P (MAP) Pulse Ox O2 Delivery O2 Flow Rate FiO2 07/05/20 15:55 98.6 99 18 135/99 (111) 95 07/05/20 06:18 Room Air I & O 07/04/20 07/04/20 07/05/20 15:00 23:00 07:00 Intake Total 720 ml 480 ml Balance 720 ml 480 ml Labs: Laboratory Tests Test 07/05/20 07:32 07/05/20 11:58 07/05/20 16:55 07/05/20 19:02 Glucose (Fingerstick) 81 mg/dL (70-99) 113 mg/dL (70-99) H 149 mg/dL (70-99) H 204 mg/dL (70-99) H Current Medications: Meds: Laboratory Tests Test 07/05/20 07:32 07/05/20 11:58 07/05/20 16:55 07/05/20 19:02 Glucose (Fingerstick) 81 mg/dL 113 mg/dL 149 mg/dL 204 mg/dL Current Medications Medications (Trade) Dose Ordered Sig/Alexx Route PRN Reason Start Time Stop Time Status Last Admin Dose Admin Acetaminophen (Tylenol) 650 mg PRN Q6HRS PRN PO MILD PAIN / TEMP > 100.3'F 06/16/20 20:30 07/02/20 21:11 Multi-Ingredient Ointment (Analgesic [place]) 1 rocio PRN QID PRN TP MUSCLE PAIN 06/16/20 20:30 Al Hydroxide/Mg Hydroxide (Mylanta Plus Xs) 15 ml PRN AFTMEALHC PRN PO DYSPEPSIA 06/16/20 20:30 Magnesium Hydroxide (Milk Of Magnesia) 2,400 mg PRN QHS PRN PO CONSTIPATION 06/16/20 20:30 Apixaban (Eliquis) 5 mg BID PO 06/16/20 21:00 07/05/20 20:23 Aspirin (Aspirin Enteric Coated) 81 mg DAILY PO 06/17/20 09:00 07/05/20 08:48 Divalproex Sodium (Depakote Sprinkles) 125 mg TID PO 06/16/20 21:30 06/17/20 11:56 DC 06/17/20 08:17 Gabapentin (Neurontin) 100 mg BID PO 06/16/20 21:30 07/05/20 20:22 Acetaminophen/ Hydrocodone Bitart (Lortab 5/325) 1 tab PRN Q4HRS PRN PO MOD-SEV PAIN 06/16/20 21:00 Linagliptin (Tradjenta) 5 mg DAILY PO 06/17/20 09:00 07/05/20 08:48 Melatonin (Melatonin) 3 mg HS PO 06/16/20 21:30 07/05/20 20:22 Metformin HCl (Glucophage) 750 mg BIDWMEALS PO 06/17/20 08:00 07/05/20 17:29 Metoprolol Succinate (Toprol Xl) 25 mg DAILY PO 06/17/20 09:00 06/20/20 16:14 DC 06/20/20 08:29 Nicotine (Nicoderm Cq 14mg Patch) 1 patch DAILY TD 06/17/20 09:00 07/05/20 08:47 Quetiapine Fumarate (SEROquel) 50 mg BID PO 06/16/20 21:30 06/17/20 11:56 DC 06/17/20 08:16 Atorvastatin Calcium (Lipitor) 40 mg QHS PO 06/16/20 21:30 07/05/20 20:22 Cyanocobalamin (Vitamin B-12) 500 mcg DAILY PO 06/17/20 09:00 07/05/20 08:52 Insulin Glargine (Lantus Syringe) 35 unit DAILY SQ 06/17/20 09:00 07/05/20 08:53 Lactobacillus Rhamnosus (Culturelle) 1 cap DAILY PO 06/17/20 09:00 07/05/20 08:48 Multivitamins/ Calcium (Thera-M Plus) 1 tab DAILY PO 06/17/20 09:00 07/05/20 08:48 Pantoprazole Sodium (Protonix) 40 mg DAILY PO 06/17/20 09:00 07/05/20 08:48 Vitamin D (Vitamin D3) 500 unit DAILY PO 06/17/20 09:00 07/05/20 08:48 Insulin Human Lispro (HumaLOG) 0-5 UNITS TIDWMEALS SQ 06/17/20 08:00 06/17/20 12:18 Dextrose (Dextrose 50%-Water Syringe) 12.5 gm PRN Q15MIN PRN IV SEE COMMENTS 06/16/20 21:00 Olanzapine (ZyPREXA ZYDIS) 2.5 mg PRN Q2HRS PRN PO PSYCHOSIS/Agitation 06/16/20 21:15 06/18/20 18:00 DC 06/18/20 08:45 Divalproex Sodium (Depakote Sprinkles) 250 mg TID PO 06/17/20 14:00 06/20/20 18:07 DC 06/20/20 13:04 Quetiapine Fumarate (SEROquel) 150 mg HS PO 06/17/20 21:00 06/21/20 17:15 DC 06/20/20 20:53 Quetiapine Fumarate (SEROquel) 25 mg PRN Q4HRS PRN PO AGITATION 06/18/20 10:00 06/28/20 12:23 Trimethoprim/ Sulfamethoxazole (Bactrim Ss) 1 tab BID PO 06/20/20 21:00 06/28/20 21:00 DC 06/28/20 20:39 Metoprolol Succinate (Toprol Xl) 50 mg DAILY PO 06/21/20 09:00 07/05/20 08:49 Divalproex Sodium (Depakote Sprinkles) 500 mg 0900,1700 PO 06/21/20 09:00 06/24/20 17:10 DC 06/24/20 08:43 Risperidone (RisperDAL) 0.5 mg BID PO 06/21/20 21:00 07/05/20 20:23 Hydralazine HCl (Apresoline) 25 mg PRN TID PRN PO anxiety 06/21/20 17:30 06/28/20 11:51 DC 06/27/20 15:50 Divalproex Sodium (Depakote Sprinkles) 500 mg 0900 PO 06/25/20 09:00 07/05/20 08:49 Divalproex Sodium (Depakote Sprinkles) 750 mg HS PO 06/24/20 21:00 07/05/20 20:22 Hydroxyzine HCl (Atarax) 25 mg PRN TID PRN PO ANXIETY / AGITATION 06/28/20 12:00 07/05/20 20:22 Neomycin/ Polymyxin/ Bacitracin (Triple Antibiotic Ointment) 1 pkt BID TP 07/01/20 21:00 07/05/20 20:22 I have reviewed the current psychotropics carefully including drug interactions. Risk benefit ratio favors no change other than as noted in my dictated progress note. Diagnosis: Problems: (1) Schizoaffective disorder, bipolar type (2) Impulse control disorder, unspecified (3) Anxiety disorder, unspecified (4) Bipolar disorder, curr episode mixed, severe, with psychotic features CHAVO WANG MD Jul 05, 2020 20:54
--- NOTE | 2020-07-05 22:33 | PN ---
DATE: 07/05/2020 PSYCHIATRIC PROGRESS NOTE This note covers elements not covered in my initial note 07/05/2020. SUBJECTIVE: Discussed with nursing staff, reviewed the chart. Per TALIA Palacios, the patient slept 6-1/2 hours previous night. Generally she has done well most of the day, but this evening as I met with her at length in her room, she was quite upset with her roommate who is quite demented. She is getting more anxious, but plan is for her to transition to [facility] tomorrow and I addressed with her how important it was for her to improve her perspective of the situation, so as not to jeopardize her discharge for tomorrow. She was insightful. REVIEW OF SYSTEMS: Ambulation impaired, in wheelchair. No CV, , pulmonary, eye system symptoms on review. MENTAL STATUS EXAM: Reasonably oriented. Speech coherent, somewhat pressured. Abstraction fair, computation impaired, language function intact, attention span short. Mood and affect, somewhat anxious, but improved. No suicidal or homicidal ideation. LABORATORY DATA: Reviewed. IMPRESSION: Unchanged from initial note. PLAN: No change from initial note. MAN Lisa WANG MD DR: LA/abhinav JOB#: [id number] / [id number]
[2020-07-06 05:52] VITALS: BP 133/66
[2020-07-06] MEDS: INSULIN LISPRO 300 UNITS/3 ML VIAL. SQ SCH ×2 (08:00→12:00)
[2020-07-06] MEDS: LACTOBACILLUS RHAMNOSUS GG 1 CAPSULE. PO SCH (08:31)
[2020-07-06] MEDS: APIXABAN 5 MG TABLET. PO SCH (08:31)
[2020-07-06] MEDS: CHOLECALCIFEROL (VITAMIN D3) 1,000 UNIT TABLET PO SCH (08:32)
[2020-07-06] MEDS: ASPIRIN ENTERIC COATED 81 MG TABLET.DR. PO SCH (08:32)
[2020-07-06] MEDS: DIVALPROEX 125 MG CAP.SPRINK PO SCH (08:32)
[2020-07-06] MEDS: CYANOCOBALAMIN (VITAMIN B-12) 250 MCG TABLET. PO SCH (08:32)
[2020-07-06] MEDS: risperiDONE 0.5 MG TABLET. PO SCH (08:32)
[2020-07-06 08:33] VITALS: BP 133/66
[2020-07-06] MEDS: NEOMY/BACITR/POLYMYXIN OINT PACKET. TP SCH (08:33)
[2020-07-06] MEDS: metFORMIN 500 MG TABLET PO SCH (08:33)
[2020-07-06] MEDS: MULTIVITAMIN with MINERAL TABLET. PO SCH (08:33)
[2020-07-06] MEDS: LINAGLIPTIN 5 MG TABLET PO SCH (08:33)
[2020-07-06] MEDS: PANTOPRAZOLE 40 MG TABLET. PO SCH (08:33)
[2020-07-06] MEDS: METOPROLOL SUCC 24HR ER 50 MG TAB.ER.24H. PO SCH (08:33)
[2020-07-06] MEDS: GABAPENTIN 100 MG CAPSULE. PO SCH (08:33)
[2020-07-06] MEDS: NICOTINE 14MG PATCH. TD SCH (08:34)
[2020-07-06] MEDS: INSULIN GLARGINE SYRINGE. SQ SCH (08:42)
--- NOTE | 2020-07-06 21:18 | PDOC ---
Exam Note: Edgar Note: Please also refer to the separate dictated note~for this date of service dictated separately.~Patient seen individually. Discussed the patient with Nursing staff reviewed the chart.~Reviewed interim history and current functioning. Reviewed vital signs,~Labs/ Radiology~and current medications noted below. Continue current treatment with the changes noted in the dictated addendum note Assessment: Vital Signs/I&O: Vital Signs Date Time Temp Pulse Resp B/P (MAP) Pulse Ox O2 Delivery O2 Flow Rate FiO2 07/06/20 08:33 72 133/66 07/06/20 05:52 97.2 18 94 07/05/20 06:18 Room Air I & O 07/05/20 07/05/20 07/06/20 15:00 23:00 07:00 Intake Total 480 ml 440 ml Balance 480 ml 440 ml Labs: Laboratory Tests Test 07/06/20 07:40 07/06/20 12:04 Glucose (Fingerstick) 96 mg/dL (70-99) 110 mg/dL (70-99) H Current Medications: Meds: Laboratory Tests Test 07/06/20 07:40 07/06/20 12:04 Glucose (Fingerstick) 96 mg/dL 110 mg/dL Current Medications Medications (Trade) Dose Ordered Sig/Alexx Route PRN Reason Start Time Stop Time Status Last Admin Dose Admin Acetaminophen (Tylenol) 650 mg PRN Q6HRS PRN PO MILD PAIN / TEMP > 100.3'F 06/16/20 20:30 07/06/20 15:22 DC 07/02/20 21:11 Multi-Ingredient Ointment (Analgesic [place]) 1 rocio PRN QID PRN TP MUSCLE PAIN 06/16/20 20:30 07/06/20 15:22 DC Al Hydroxide/Mg Hydroxide (Mylanta Plus Xs) 15 ml PRN AFTMEALHC PRN PO DYSPEPSIA 06/16/20 20:30 07/06/20 15:22 DC Magnesium Hydroxide (Milk Of Magnesia) 2,400 mg PRN QHS PRN PO CONSTIPATION 06/16/20 20:30 07/06/20 15:22 DC Apixaban (Eliquis) 5 mg BID PO 06/16/20 21:00 07/06/20 15:22 DC 07/06/20 08:31 Aspirin (Aspirin Enteric Coated) 81 mg DAILY PO 06/17/20 09:00 07/06/20 15:22 DC 07/06/20 08:32 Divalproex Sodium (Depakote Sprinkles) 125 mg TID PO 06/16/20 21:30 06/17/20 11:56 DC 06/17/20 08:17 Gabapentin (Neurontin) 100 mg BID PO 06/16/20 21:30 07/06/20 15:22 DC 07/06/20 08:33 Acetaminophen/ Hydrocodone Bitart (Lortab 5/325) 1 tab PRN Q4HRS PRN PO MOD-SEV PAIN 06/16/20 21:00 07/06/20 15:22 DC Linagliptin (Tradjenta) 5 mg DAILY PO 06/17/20 09:00 07/06/20 15:22 DC 07/06/20 08:33 Melatonin (Melatonin) 3 mg HS PO 06/16/20 21:30 07/06/20 15:22 DC 07/05/20 20:22 Metformin HCl (Glucophage) 750 mg BIDWMEALS PO 06/17/20 08:00 07/06/20 15:22 DC 07/06/20 08:33 Metoprolol Succinate (Toprol Xl) 25 mg DAILY PO 06/17/20 09:00 06/20/20 16:14 DC 06/20/20 08:29 Nicotine (Nicoderm Cq 14mg Patch) 1 patch DAILY TD 06/17/20 09:00 07/06/20 15:22 DC 07/06/20 08:34 Quetiapine Fumarate (SEROquel) 50 mg BID PO 06/16/20 21:30 06/17/20 11:56 DC 06/17/20 08:16 Atorvastatin Calcium (Lipitor) 40 mg QHS PO 06/16/20 21:30 07/06/20 15:22 DC 07/05/20 20:22 Cyanocobalamin (Vitamin B-12) 500 mcg DAILY PO 06/17/20 09:00 07/06/20 15:22 DC 07/06/20 08:32 Insulin Glargine (Lantus Syringe) 35 unit DAILY SQ 06/17/20 09:00 07/06/20 15:22 DC 07/06/20 08:42 Lactobacillus Rhamnosus (Culturelle) 1 cap DAILY PO 06/17/20 09:00 07/06/20 15:22 DC 07/06/20 08:31 Multivitamins/ Calcium (Thera-M Plus) 1 tab DAILY PO 06/17/20 09:00 07/06/20 15:22 DC 07/06/20 08:33 Pantoprazole Sodium (Protonix) 40 mg DAILY PO 06/17/20 09:00 07/06/20 15:22 DC 07/06/20 08:33 Vitamin D (Vitamin D3) 500 unit DAILY PO 06/17/20 09:00 07/06/20 15:22 DC 07/06/20 08:32 Insulin Human Lispro (HumaLOG) 0-5 UNITS TIDWMEALS SQ 06/17/20 08:00 07/06/20 15:22 DC 06/17/20 12:18 Dextrose (Dextrose 50%-Water Syringe) 12.5 gm PRN Q15MIN PRN IV SEE COMMENTS 06/16/20 21:00 07/06/20 15:22 DC Olanzapine (ZyPREXA ZYDIS) 2.5 mg PRN Q2HRS PRN PO PSYCHOSIS/Agitation 06/16/20 21:15 06/18/20 18:00 DC 06/18/20 08:45 Divalproex Sodium (Depakote Sprinkles) 250 mg TID PO 06/17/20 14:00 06/20/20 18:07 DC 06/20/20 13:04 Quetiapine Fumarate (SEROquel) 150 mg HS PO 06/17/20 21:00 06/21/20 17:15 DC 06/20/20 20:53 Quetiapine Fumarate (SEROquel) 25 mg PRN Q4HRS PRN PO AGITATION 06/18/20 10:00 07/06/20 15:22 DC 06/28/20 12:23 Trimethoprim/ Sulfamethoxazole (Bactrim Ss) 1 tab BID PO 06/20/20 21:00 06/28/20 21:00 DC 06/28/20 20:39 Metoprolol Succinate (Toprol Xl) 50 mg DAILY PO 06/21/20 09:00 07/06/20 15:22 DC 07/06/20 08:33 Divalproex Sodium (Depakote Sprinkles) 500 mg 0900,1700 PO 06/21/20 09:00 06/24/20 17:10 DC 06/24/20 08:43 Risperidone (RisperDAL) 0.5 mg BID PO 06/21/20 21:00 07/06/20 15:22 DC 07/06/20 08:32 Hydralazine HCl (Apresoline) 25 mg PRN TID PRN PO anxiety 06/21/20 17:30 06/28/20 11:51 DC 06/27/20 15:50 Divalproex Sodium (Depakote Sprinkles) 500 mg 0900 PO 06/25/20 09:00 07/06/20 15:22 DC 07/06/20 08:32 Divalproex Sodium (Depakote Sprinkles) 750 mg HS PO 06/24/20 21:00 07/06/20 15:22 DC 07/05/20 20:22 Hydroxyzine HCl (Atarax) 25 mg PRN TID PRN PO ANXIETY / AGITATION 06/28/20 12:00 07/06/20 15:22 DC 07/05/20 20:22 Neomycin/ Polymyxin/ Bacitracin (Triple Antibiotic Ointment) 1 pkt BID TP 07/01/20 21:00 07/06/20 15:22 DC 07/06/20 08:33 I have reviewed the current psychotropics carefully including drug interactions. Risk benefit ratio favors no change other than as noted in my dictated progress note. Diagnosis: Problems: (1) Schizoaffective disorder, bipolar type (2) Impulse control disorder, unspecified (3) Anxiety disorder, unspecified (4) Bipolar disorder, curr episode mixed, severe, with psychotic features CHAVO WANG MD Jul 06, 2020 21:18
--- NOTE | 2020-07-08 21:53 | DS ---
DATE OF DISCHARGE: 07/06/2020 DISCHARGE SUMMARY/PSYCHIATRIC PROGRESS NOTE This late entry date of service 07/06/2020 covers the elements not covered in my initial note. REASON FOR ADMISSION: Please refer to the admission history for details. Briefly, the patient is a 70-year-old female referred to us from [facility] in [place], [place] by her primary care physician and psychiatrist on account of an acute exacerbation of her schizoaffective disorder, bipolar type. She had appeared manic, was yelling "help me" repeatedly. She is angry, agitated, aggressive to staff and peers and intrusive, intimidating and restless. Behaviors had failed outpatient psychiatric interventions. She was unmanageable at the facility, significantly disruptive to the entire environment referred for inpatient psychiatric stabilization. SIGNIFICANT FINDINGS AND CLINICAL COURSE: Following admission, the patient was seen daily individually by myself from a psychiatric standpoint, medical followup per Dr. Reddy/Dr. Bowen. The patient was initially extremely loud, disruptive, angry, aggressive, paranoid, and disruptive. Adjustments were made in her psychotropics and she seemed to respond to a combination of Depakote Sprinkle 750 mg at 1700, 500 mg 0900 with a valproic acid level therapeutic at 66. She was also on melatonin 3 mg at bedtime, Seroquel p.r.n., Risperdal 0.5 mg b.i.d., hydroxyzine 25 mg t.i.d. p.r.n. anxiety. REVIEW OF SYSTEMS: Prior to discharge on 07/06/2020, ambulation impaired, in wheelchair due to her lower extremity amputation. No CV, , pulmonary, eye, ENT system symptoms on review. MENTAL STATUS EXAM: Oriented to herself and situation. Speech coherent, less pressured. Abstraction fair, computation impaired, language function intact, attention span short. Mood and affect remains much improved, euthymic with mild anxiety. No suicidal or homicidal ideation at discharge. CONDITION AT DISCHARGE: Improved. FINAL DIAGNOSES: Schizoaffective disorder, bipolar type, mixed with psychotic features, in partial remission; anxiety disorder, unspecified; impulse control disorder, unspecified. DISCHARGE MEDICATIONS: Please refer to the [facility]. DISCHARGE INSTRUCTIONS: [facility]. Time for discharge day management greater than 30 minutes. MAN Lisa WANG MD DR: Deneen JOB#: [id number] / [id number]
== END 2020-07-06 15:22 | DRG 885 ==
LOC: GEROPSY 19:54
PROVIDERS: ADMIT Psychiatry & Neurology Psychiatry; ATTEND Psychiatry & Neurology Psychiatry
DX: F25.0 Schizoaffective disorder, bipolar type (principal); N18.9 Chronic kidney disease, unspecified; E11.22 Type 2 diabetes mellitus with diabetic chronic kidney disease; E78.5 Hyperlipidemia, unspecified; I12.9 Hypertensive chronic kidney disease with stage 1 through stage 4 chronic kidney disease, or unspecified chronic kidney disease; F63.9 Impulse disorder, unspecified; F41.1 Generalized anxiety disorder; E83.42 Hypomagnesemia; D64.9 Anemia, unspecified; I48.91 Unspecified atrial fibrillation; Z88.8 Allergy status to other drugs, medicaments and biological substances; Z89.512 Acquired absence of left leg below knee; Z91.19 Patient's noncompliance with other medical treatment and regimen; Z79.899 Other long term (current) drug therapy; Z86.718 Personal history of other venous thrombosis and embolism; Z20.822 Contact with and (suspected) exposure to COVID-19
CPT/HCPCS: 36415; 80053; 80061; 80164; 81001; 82306; 82607; 82947; 83036; 83540; 83550; 83735; 84436; 84443; 84480; 85025; 85379; 86592; 87086; 87493; J1815; U0003; 97530

== ENCOUNTER 2020-10-13 18:01 | Observation (INO) | payer MEDICARE, BC ==
[~2020-10-13] VITALS: Ht 175.3 cm; Wt 83.5 kg
[~2020-10-13 18:01] MED LIST: ACET325T21 PO; APIX5TAB3 PO; ASPI-889 PO; ATOR40TA PO; CYAN500T17 PO; DIVA125C2 PO; GABA100C81 PO; HYDR-2155 PO; HYDR25TA PO; INSU100I13 SQ; INSU100I40 SQ; LACT1CAP2 PO; LINA5TAB4 PO; MAG-83 PO; MAGN24003 PO; MELA3TAB4 PO; METF500T PO; METH28OI2 TP; METO-239 PO; MULT-121 PO; NICO1PAT25 TD; OMEP20CA16 PO; QUET50TA5 PO; RISP0.5T62 PO; vitamin d PO
[2020-10-13 18:19] VITALS: BP 108/66
[2020-10-13 19:00] VITALS: BP_SYST 64
--- NOTE | 2020-10-13 19:00 | NUR ---
The patient, MICAELA LYNCH, 70 y/o, F admitted by NAZARIO LEDEZMA MD, was given written information regarding hospital policies, unit procedures and contact persons. Valuables were checked and left with the patient.
[2020-10-13] MEDS: risperiDONE 0.5 MG TABLET. PO SCH ×2 (21:00→23:03)
[2020-10-13] MEDS ORDERED: HYDROcodone/APAP 5/325MG 1 TAB TABLET PO PRN (21:15)
[2020-10-13] MEDS ORDERED: SERT50TA PO (21:18)
[2020-10-13] MEDS ORDERED: FURO-69 PO (21:18)
[2020-10-13] MEDS ORDERED: ASPI-889 PO (21:18)
[2020-10-13] MEDS ORDERED: POTA10TA5 PO (21:18)
[2020-10-13] MEDS ORDERED: DEXTROSE 50% 25 GM / 50ML DISP.SYRIN. IV PRN (21:45)
[2020-10-13 21:50] LABS: HEMATOCRIT 40.9 % (36.0-47.0); HEMOGLOBIN 13.1 g/dL (12.0-15.5); RED BLOOD COUNT 4.42 x10^6/uL (3.50-5.40); RED CELL DISTRIBUTION WIDTH 17.7 % (11.5-14.5); WHITE BLOOD COUNT 11.6 x10^3/uL (4.0-11.0)
[2020-10-13 22:06] LABS: ALBUMIN 2.7 g/dL (3.4-5.0); ALBUMIN/GLOBULIN RATIO 0.7 (1.0-1.7); CALCIUM 8.9 mg/dL (8.5-10.1); CREATININE 1.3 mg/dL (0.6-1.0); GFR 40.6; MAGNESIUM 1.6 mg/dL (1.8-2.4); TOTAL BILIRUBIN 0.2 mg/dL (0.2-1.0); TOTAL PROTEIN 6.4 g/dL (6.4-8.2)
[2020-10-13] MEDS: GABAPENTIN 100 MG CAPSULE. PO SCH (23:02)
[2020-10-13] MEDS: MELATONIN 3 MG TABLET PO SCH (23:02)
[2020-10-13] MEDS: ATORVASTATIN CALCIUM 20 MG TABLET PO SCH (23:02)
[2020-10-13 23:06] VITALS: BP 108/75
--- NOTE | 2020-10-14 05:39 | NUR ---
Pt is pleasant, calm and cooperative. She has slept very little this night. She has been watching television and occasionally calling out "hello." When checked on, she does not have any needs or requests that she can vocalize but rather engages in casual conversation with statements that are not logical. She has asked about some paperwork she "can shuffle and take care of" and another time, pointed at the television asking to "talk to the terminal." Pt has removed her gown and found lying in bed naked watching television. Pt redressed. She has denied pain or discomfort and declined food or drink. Will continue to monitor.
--- NOTE | 2020-10-14 06:24 | EKG ---
[address] [address] Test Date: 2020-10-14 Test Time: 05:00:05 Pat Name: MICAELA LYNCH Department: Room: 105 A Gender: F Dip [place]: : 1950 Requested By: NAZARIO LEDEZMA Order Number: [id number] Reading MD: Measurements Intervals [place] Rate: 128 P: [place]: QRS: -15 QRSD: 86 T: 114 QT: 322 QTc: 474 Interpretive Statements ACCELERATED JUNCTIONAL RHYTHM LEFTWARD AXIS CONSIDER RIGHT VENTRICULAR HYPERTROPHY QRS(T) CONTOUR ABNORMALITY CONSIDER ANTEROSEPTAL INFARCT ST & T ABNORMALITY, CONSIDER HIGH LATERAL ISCHEMIA OR LEFT VENTRICULAR STRAIN ABNORMAL ECG RI6.01 No previous ECG available for comparison
[2020-10-14 06:52] VITALS: BP 96/58
[2020-10-14] MEDS ORDERED: INSULIN LISPRO 300 UNITS/3 ML VIAL. SQ SCH (07:30)
[2020-10-14] MEDS ORDERED: PANTOPRAZOLE 40 MG TABLET. PO SCH (07:30)
[2020-10-14] MEDS: INSULIN LISPRO 300 UNITS/3 ML VIAL. SQ SCH ×4 (07:30→19:22)
[2020-10-14] MEDS: GABAPENTIN 100 MG CAPSULE. PO SCH ×2 (08:15→19:21)
[2020-10-14] MEDS: metFORMIN 500 MG TABLET PO SCH ×2 (08:15→18:07)
[2020-10-14] MEDS: APIXABAN 5 MG TABLET. PO SCH ×2 (08:15→19:21)
[2020-10-14] MEDS: risperiDONE 0.5 MG TABLET. PO SCH ×2 (08:15→19:21)
[2020-10-14] MEDS ORDERED: CHOLECALCIFEROL (VITAMIN D3) 1,000 UNIT TABLET PO SCH (09:00)
[2020-10-14] MEDS ORDERED: LINAGLIPTIN 5 MG TABLET PO SCH (09:00)
[2020-10-14] MEDS ORDERED: METOPROLOL SUCC 24HR ER 25 MG TAB.ER.24H. PO SCH (09:00)
[2020-10-14] MEDS ORDERED: INSULIN GLARGINE SYRINGE. SQ SCH (09:00)
[2020-10-14] MEDS ORDERED: ASPIRIN ENTERIC COATED 81 MG TABLET.DR. PO SCH (09:00)
--- NOTE | 2020-10-14 10:48 | HP ---
ADMIT DATE: 10/13/2020 ATTENDING PHYSICIAN: Dr. Bowen. We are asked to see this patient for admission to the medical floor prior to going to the [facility]. HISTORY OF PRESENT ILLNESS: The patient is a 70-year-old female resident of a group home in [place], [place]. She has underlying dementia with schizoaffective disorder. Lately, she has been refusing showers, bad threatening to harm others, yelling out and has belligerent behavioral issues with being verbally aggressive. She is quite agitated. She had been to the [facility] earlier this year in June spending 3 weeks of therapy. She could not give much history, most of it is obtained from the chart. PAST MEDICAL HISTORY: Significant for generalized anxiety, schizoaffective disorder, paroxysmal atrial fibrillation, type 2 diabetes, dementia, osteoarthritis and peripheral vascular disease. She has had a left [id number] amputation for peripheral vascular disease. CURRENT MEDICATIONS: Her current medicines include Tylenol, apixaban, aspirin, Lipitor, vitamin B12, Depakote, Lasix, Neurontin, hydrocodone, hydroxyzine, lactobacillus, Tradjenta, magnesium, melatonin, metformin, methyl salicylate, metoprolol, multivitamin, Nicoderm patch, omeprazole, potassium, Seroquel, risperidone, Zoloft. SOCIAL HISTORY: She is a smoker. She denies any alcohol use. FAMILY HISTORY: Unobtainable. REVIEW OF SYSTEMS: Unobtainable due to patient's mentation. PHYSICAL EXAMINATION: GENERAL: When I saw her, this is a pleasant, calm, elderly female who is bedridden. INITIAL VITAL SIGNS: Showed a blood pressure 108/75, pulse is 91 and regular, temperature 97.7 degrees Fahrenheit, oxygen saturation 93% on room air. HEENT: Head is without trauma. Pupils are reactive. Sclerae nonicteric. Oropharynx clear. NECK: Supple, no bruits identified. LUNGS: Otherwise clear. CARDIOVASCULAR: Showed regular heart tones. No gallop. ABDOMEN: Soft, obese, protuberant. No organomegaly. Bowel sounds were hypoactive. EXTREMITIES: Showed no edema. There is surgical absence of the left leg [id number]. The stump is clean. SKIN: Warm and dry. PERTINENT LABORATORY STUDIES: Admission hemoglobin 13.1 grams per deciliter. Electrolytes within normal range, creatinine 1.3 mg%. Nonfasting blood sugar 120. Transaminase and liver panel all within normal range. ASSESSMENT: 1. This is a 70-year-old female from a group home at [place], [place] has behavioral issues. 2. Underlying schizoaffective disorder. 3. Dementia. 4. Peripheral vascular disease with left [id number] amputation. 5. Type 2 diabetes. 6. Generalized debilitation. 7. Hypertension. 8. Paroxysmal atrial fibrillation. PLAN: 1. Admit to the medical unit. 2. Await swab for coronavirus. 3. Home meds reviewed and continued. 4. Diabetic diet. 5. She will go upstairs to the behavioral unit when her coronavirus swab comes back negative. LUZMARIA/OLGA DR: Eddie TID: [id number] CC: CHAVO WANG MD
[2020-10-14 11:20] LABS: THYROID STIM HORMONE (TSH) 2.513 uIU/mL (0.358-3.740)
[2020-10-14 11:42] VITALS: BP 92/64
[2020-10-14 15:38] VITALS: BP 110/73
[2020-10-14] MEDS: MELATONIN 3 MG TABLET PO SCH (19:21)
[2020-10-14] MEDS: ATORVASTATIN CALCIUM 20 MG TABLET PO SCH (19:21)
--- NOTE | 2020-10-14 19:55 | NUR ---
Report called to [facility] on [facility]. Pt alert and oriented x4, forgetful at times yelling out. Pt calm and compliant with medications and assessment. pT Transferred to wheelchair x2 assist with seamus. Pt accompanied upstair by tech, all belonging with pt.
[2020-10-14] MEDS ORDERED: NYST15PO9 TP (20:32)
--- NOTE | 2020-10-15 00:43 | DS ---
DATE OF DISCHARGE: 10/14/2020 ATTENDING PHYSICIAN: Dr. Bowen. FINAL DISCHARGE DIAGNOSES: 1. Schizoaffective disorder. 2. Aggressive behavior issues. 3. Type 2 diabetes mellitus. 4. Peripheral vascular disease. 5. Left below-knee amputation. HISTORY OF PRESENT ILLNESS: The patient is a 70-year-old female who is from a alf in [place], [place]. She has underlying schizoaffective disorder. She has had behavioral issues with aggressive behavior, not willing to take her meds and not cooperative. She had [facility] this [facility] in June, she was there for 3 weeks. PHYSICAL EXAMINATION: Please see my dictated note. PERTINENT LABORATORY AND X-RAY STUDIES: Normal CBC, chemistry panel, liver panel unremarkable. Blood sugars within acceptable range and her COVID coronavirus swab was reported as negative. COURSE IN HOSPITAL: The patient was admitted overnight. She had blood work done. Home medications were continued. When her coronavirus swab came back negative, she was able to be discharged for admission to the [facility] on the evening of the second hospital day. Her home meds are as the same as on the H and P unchanged. Her prognosis is fair. She was discharged from our hospital to go to the [facility] in stable condition with explicit instructions and followup care. SILVIA/CHIVO DR: Eddie TID: [id number] CC: CHAVO WANG MD
[2020-10-15 01:06] LABS: HEMOGLOBIN A1C 6.9 % (4.8-5.6)
== END 2020-10-14 20:00 | disposition psychiatric hospital, planned readmission (93) ==
LOC: 1 SOUTH 18:01
PROVIDERS: ADMIT Psychiatry & Neurology Psychiatry; ATTEND Internal Medicine
DX: F25.9 Schizoaffective disorder, unspecified (principal); Z20.822 Contact with and (suspected) exposure to COVID-19; F03.90 Unspecified dementia, unspecified severity, without behavioral disturbance, psychotic disturbance, mood disturbance, and anxiety; I73.9 Peripheral vascular disease, unspecified; E11.9 Type 2 diabetes mellitus without complications; R53.81 Other malaise; I10 Essential (primary) hypertension; I48.0 Paroxysmal atrial fibrillation; F41.1 Generalized anxiety disorder; F17.200 Nicotine dependence, unspecified, uncomplicated; Z89.512 Acquired absence of left leg below knee; Z79.899 Other long term (current) drug therapy; Z98.890 Other specified postprocedural states
CPT/HCPCS: 36415; 80053; 80061; 82306; 82607; 82947; 83036; 83735; 84443; 85027; 85379; 86592; 93005; G0378; G0379; J1815; U0003

== ENCOUNTER 2020-10-14 07:30 | Inpatient (IN) | payer MEDICARE, BC ==
[~2020-10-14] VITALS: Ht 175.3 cm; Wt 83.5 kg
[~2020-10-14 07:30] MED LIST changes: +FURO-69 PO; +POTA10TA5 PO; +SERT50TA PO
[2020-10-14] MEDS ORDERED: ACETAMINOPHEN 325 MG TABLET PO PRN ×2 (20:15→23:15)
[2020-10-14] MEDS ORDERED: MAG HYDROX/AL HYDROX/SIMETH 30 ML ORAL.SUSP PO PRN ×2 (20:15→23:15)
[2020-10-14] MEDS ORDERED: NYST15PO9 TP (20:32)
[2020-10-14] MEDS ORDERED: METHYL SALICYLATE/MENTHOL TOPICAL OINTMENT 57GM TUBE. TP PRN ×2 (21:00→23:15)
[2020-10-14] MEDS: NYSTATIN TOPICAL POWDER 15GM BOTTLE. TP SCH (21:00)
[2020-10-14 22:21] VITALS: BP 110/67
[2020-10-14] MEDS: risperiDONE 0.5 MG TABLET. PO SCH (22:39)
[2020-10-14] MEDS: MELATONIN 3 MG TABLET PO SCH (22:39)
[2020-10-14] MEDS: DIVALPROEX 125 MG CAP.SPRINK PO SCH (22:39)
[2020-10-14] MEDS: GABAPENTIN 100 MG CAPSULE. PO SCH (22:39)
[2020-10-14] MEDS: ATORVASTATIN CALCIUM 20 MG TABLET PO SCH (22:40)
[2020-10-14] MEDS: APIXABAN 5 MG TABLET. PO SCH (22:40)
[2020-10-14] MEDS ORDERED: MAGNESIUM HYDROXIDE 2,400 MG/30 ML ORAL.SUSP. PO PRN (23:15)
--- NOTE | 2020-10-14 23:43 | NUR ---
Nursing Note Pt admitted at shift change. Pt alert but forgetful. Seems pleasant and cooperative at first, but later is threatening staff and doesn't want anyone to touch her. Easily agitated, irritable and generally short tempered. Takes po meds willingly, whole with lots of encouragement, states "I don't want to take this stuff." Pt eventually took that meds after many minutes of swirling the meds around in her cup. Resting well now.
[2020-10-15 06:01] VITALS: BP 103/66
[2020-10-15 06:49] LABS: BASO % 0 % (0-3); EOS # 0.1 x10^3/uL (0.0-0.7); EOS % 2 % (0-3); HEMATOCRIT 38.1 % (36.0-47.0); HEMOGLOBIN 12.4 g/dL (12.0-15.5); LYMPH # 3.2 x10^3/uL (1.0-4.8); LYMPH % 38 % (24-48); MEAN CORPUSCULAR HEMOGLOBIN 30 pg (25-35); MEAN CORPUSCULAR HGB CONC 32 g/dL (31-37); MEAN CORPUSCULAR VOLUME 92 fL (79-100); MONO # 0.7 x10^3/uL (0.0-1.1); MONO % 9 % (0-9); NEUT # 4.4 x10^3uL (1.8-7.7); NEUT % 52 % (31-73); PLATELET COUNT 180 x10^3/uL (140-400); RED BLOOD COUNT 4.16 x10^6/uL (3.50-5.40); RED CELL DISTRIBUTION WIDTH 17.6 % (11.5-14.5); WHITE BLOOD COUNT 8.5 x10^3/uL (4.0-11.0)
[2020-10-15 07:09] LABS: ALBUMIN 2.4 g/dL (3.4-5.0); ALBUMIN/GLOBULIN RATIO 0.7 (1.0-1.7); ALK PHOS 57 U/L (46-116); ALT (SGPT) 19 U/L (14-59); AST (SGOT) 20 U/L (15-37); BLOOD UREA NITROGEN 33 mg/dL (7-20); BUN/CREATININE RATIO 33 (6-20); CALCIUM 8.3 mg/dL (8.5-10.1); CHLORIDE 106 mmol/L (98-107); GLUCOSE 81 mg/dL (70-99); MAGNESIUM 1.6 mg/dL (1.8-2.4); POTASSIUM 3.9 mmol/L (3.5-5.1); SODIUM 141 mmol/L (136-145); TOTAL BILIRUBIN 0.2 mg/dL (0.2-1.0); TOTAL PROTEIN 5.8 g/dL (6.4-8.2)
[2020-10-15 07:38] LABS: ANION GAP 12 (6-14); CARBON DIOXIDE 23 mmol/L (21-32)
[2020-10-15 07:42] LABS: VAL ACID 58 mcg/mL (50-100)
[2020-10-15] MEDS ORDERED: INSULIN LISPRO 300 UNITS/3 ML VIAL. SQ SCH (08:00)
[2020-10-15] MEDS: risperiDONE 0.5 MG TABLET. PO SCH ×2 (08:41→20:28)
[2020-10-15] MEDS: POTASSIUM CHLORIDE 10 MEQ TABLET.ER. PO SCH (08:41)
[2020-10-15] MEDS: PANTOPRAZOLE 40 MG TABLET. PO SCH ×2 (08:41→17:23)
[2020-10-15] MEDS: CYANOCOBALAMIN (VITAMIN B-12) 250 MCG TABLET. PO SCH (08:41)
[2020-10-15] MEDS: metFORMIN 500 MG TABLET PO SCH ×2 (08:41→17:23)
[2020-10-15] MEDS: GABAPENTIN 100 MG CAPSULE. PO SCH ×2 (08:41→20:27)
[2020-10-15] MEDS: LACTOBACILLUS RHAMNOSUS GG 1 CAPSULE. PO SCH (08:41)
[2020-10-15] MEDS: HYDROcodone/APAP 5/325MG 1 TAB TABLET PO PRN (08:41)
[2020-10-15] MEDS: APIXABAN 5 MG TABLET. PO SCH ×2 (08:41→20:28)
[2020-10-15] MEDS: MULTIVITAMIN with MINERAL TABLET. PO SCH (08:41)
[2020-10-15] MEDS: METOPROLOL SUCC 24HR ER 50 MG TAB.ER.24H. PO SCH (08:42)
[2020-10-15] MEDS: LINAGLIPTIN 5 MG TABLET PO SCH (08:42)
[2020-10-15] MEDS: ASPIRIN ENTERIC COATED 81 MG TABLET.DR. PO SCH (08:42)
[2020-10-15] MEDS: SERTRALINE 50 MG TABLET. PO SCH (08:42)
[2020-10-15] MEDS: FUROSEMIDE 20 MG TABLET PO SCH (08:42)
[2020-10-15] MEDS: CHOLECALCIFEROL (VITAMIN D3) 1,000 UNIT TABLET PO SCH (08:42)
[2020-10-15] MEDS: DIVALPROEX 125 MG CAP.SPRINK PO SCH ×4 (08:42→20:29)
[2020-10-15] MEDS: INSULIN GLARGINE SYRINGE. SQ SCH (08:55)
[2020-10-15] MEDS: NYSTATIN TOPICAL POWDER 15GM BOTTLE. TP SCH ×2 (08:56→20:29)
[2020-10-15] MEDS ORDERED: ASPIRIN ENTERIC COATED 81 MG TABLET.DR. PO SCH (09:00)
[2020-10-15] MEDS: INSULIN LISPRO 300 UNITS/3 ML VIAL. SQ SCH ×2 (12:15→17:22)
[2020-10-15 15:58] VITALS: BP 103/73
[2020-10-15] MEDS: MELATONIN 3 MG TABLET PO SCH (20:27)
[2020-10-15] MEDS: ATORVASTATIN CALCIUM 20 MG TABLET PO SCH (20:29)
[2020-10-15 21:58] LABS: THYROID STIM HORMONE (TSH) 2.952 uIU/mL (0.358-3.740)
[2020-10-15 23:08] LABS: THYROXINE 5.4 ug/dL (4.5-12.0)
--- NOTE | 2020-10-16 00:20 | PSYEV ---
DATE OF SERVICE: 10/15/2020 REASON FOR ADMISSION: This 70-year-old female was readmitted to [facility] from medical floor from [facility]. Apparently, she has been presenting with behavior problems including refusing showers, threatening to kick staff, yelling out, name calling, belligerent, verbally aggressive, also cursing and disruptive to others, also difficult to redirect and several episodes of agitation. Staff is unable to manage at the assisted. HISTORY OF PRESENT ILLNESS: The patient has a long history of psychiatric problems with a diagnosis of schizoaffective disorder, bipolar type, and also she has been exhibiting manic symptoms with marked mood lability, agitation and paranoia in the past. The patient also presenting behaviors which are considered dangerous at times. The patient did not make any suicidal statements. The patient denies of having any problems prior to coming here, as she has no recall about her behaviors at the assisted. Patient still irritable, rasmussen and not showing much insight into her problems. PAST PSYCHIATRIC HISTORY: The patient apparently was hospitalized here in 2020. PAST MEDICAL HISTORY: Diabetes mellitus type 2, hyperlipidemia, heart disease, atrial fibrillation, chronic kidney disease, history of DVT, history of osteomyelitis and left below-knee amputation. ALLERGIES: The patient is allergic to DOXYCYCLINE, AUGMENTIN. CODE STATUS: Full code. DIET: Diabetic. Ambulates by wheelchair ____ transfers. CURRENT MEDICATIONS: Include insulin glargine 35 units subcutaneously daily, B12 at 500 mcg daily, Zoloft 50 mg daily, metoprolol 50 mg daily, Tradjenta 5 mg daily, Lasix 20 mg daily, Depakote sprinkles 500 mg 3 times a day, aspirin 81 mg daily, potassium chloride 10 mEq daily, Protonix 40 mg twice a day, metformin 750 mg twice a day, Lipitor 40 mg twice a day, Risperdal 0.5 mg twice a day, melatonin 3 mg at night, gabapentin 100 mg twice a day, Depakote 750 mg at night. FAMILY HISTORY: Noncontributory. SOCIAL HISTORY: The patient has no prior history of alcohol or drug abuse and denies of any physical or sexual abuse. REVIEW OF SYSTEMS: The patient is currently on a wheelchair, not able to ambulate secondary to left below-knee amputation of left lower extremity. The patient dependent on staff for ADLs. The patient is currently not exhibiting any other physical complaints. The patient is mainly confused, does not recall events that happened prior to coming here. MENTAL STATUS EXAM: The patient appeared to be of her stated age, casually dressed, pleasant, but confused. She knew she was in the hospital, but she did not know the date or year. The patient did not show any involuntary movements. Her speech was monosyllabic, but coherent. The patient's ____. The patient currently not presenting with any major behavior problems except episodes of agitation, misinterpretation of her environment. The patient apparently accepting of her stay and she is aware that she was here before. Patient interacts with the staff fairly well. The patient's speech is clear, monotone, decreased rate and rhythm. Affect and mood showed somewhat bewildered. She did not know why they sent her here. Patient has no recall of events that brought her here. The patient denies of having any problems with sleep or appetite. The patient denies of any psychotic symptoms at this time. The patient is disoriented to her surroundings except she knows she has been in the hospital. Patient's memory is not testable at this time. Judgment impaired. Insight limited. STRENGTHS: Fairly in good health. The patient apparently has been compliant with medications. WEAKNESSES: The patient apparently exhibiting behaviors including agitation, hyperverbal, verbally abusive towards others and also threatening, having significant mood swings and also lacking insight to her problems. ADMITTING DIAGNOSES: AXIS I: 1. Schizoaffective disorder, bipolar type, mixed with psychotic features. 2. Generalized anxiety disorder. 3. Impulse control disorder, unspecified. PLAN: To continue with the treatment. The patient will be seen by the psychiatrist daily. Patient to be followed up by Dr. Reddy for medical followup. She will continue on the current medications. Also, we will check the Depakote level. LENGTH OF STAY: 10-12 days. AFTERCARE PLANS: The patient will return to [facility] after she is emotionally and psychiatrically stable. JAMMIE/THERESA DR: Roney TID: [id number]
--- NOTE | 2020-10-16 00:59 | NUR ---
Nursing Note The patient was located in her room for her assessment and medication pass. The patient was alert to name, date and location. The patient was pleasant during interactions with this nurse. The patient was compliant with her medication and was able to take them whole. The patient is currently sleeping in her room.
[2020-10-16 02:09] LABS: HEMOGLOBIN A1C 6.9 % (4.8-5.6)
[2020-10-16 05:55] VITALS: BP 91/60
[2020-10-16] MEDS: INSULIN LISPRO 300 UNITS/3 ML VIAL. SQ SCH ×3 (08:00→17:33)
[2020-10-16] MEDS: CHOLECALCIFEROL (VITAMIN D3) 1,000 UNIT TABLET PO SCH (08:29)
[2020-10-16] MEDS: metFORMIN 500 MG TABLET PO SCH ×2 (08:30→17:26)
[2020-10-16] MEDS: POTASSIUM CHLORIDE 10 MEQ TABLET.ER. PO SCH (08:30)
[2020-10-16] MEDS: SERTRALINE 50 MG TABLET. PO SCH (08:31)
[2020-10-16] MEDS: CYANOCOBALAMIN (VITAMIN B-12) 250 MCG TABLET. PO SCH (08:31)
[2020-10-16] MEDS: DIVALPROEX 125 MG CAP.SPRINK PO SCH ×4 (08:31→21:11)
[2020-10-16] MEDS: risperiDONE 0.5 MG TABLET. PO SCH ×2 (08:31→21:11)
[2020-10-16] MEDS: LINAGLIPTIN 5 MG TABLET PO SCH (08:31)
[2020-10-16] MEDS: ASPIRIN ENTERIC COATED 81 MG TABLET.DR. PO SCH (08:31)
[2020-10-16] MEDS: MULTIVITAMIN with MINERAL TABLET. PO SCH (08:31)
[2020-10-16] MEDS: PANTOPRAZOLE 40 MG TABLET. PO SCH ×2 (08:31→17:26)
[2020-10-16] MEDS: APIXABAN 5 MG TABLET. PO SCH ×2 (08:31→21:12)
[2020-10-16] MEDS: LACTOBACILLUS RHAMNOSUS GG 1 CAPSULE. PO SCH (08:31)
[2020-10-16] MEDS: GABAPENTIN 100 MG CAPSULE. PO SCH ×2 (08:32→21:11)
[2020-10-16] MEDS: FUROSEMIDE 20 MG TABLET PO SCH (08:32)
[2020-10-16] MEDS: NYSTATIN TOPICAL POWDER 15GM BOTTLE. TP SCH ×2 (08:33→21:18)
[2020-10-16] MEDS: METOPROLOL SUCC 24HR ER 50 MG TAB.ER.24H. PO SCH (08:35)
[2020-10-16] MEDS: INSULIN GLARGINE SYRINGE. SQ SCH (08:35)
--- NOTE | 2020-10-16 13:18 | NUR ---
WEEKLY ACTIVITY THERAPY NOTE Date of Admission: 10/14/20 Date of AT Assessment: TBD Precipitating behaviors that initiated intake and admission: yelling out, name calling, belligerent, verbally aggressive, cursing, socially disruptive, agitated, resistant to cares Goal aimed:TBD Initial Goal: TBD Weekly progress towards goal: NA Group participation level: NA Weekly highlights: arrived on [facility] Behaviors observed: Plan: meet/assess pt Beneficial adaptations:music
--- NOTE | 2020-10-16 14:20 | NUR ---
ACTIVITY THERAPY ASSESSMENT completed based on notes, observation and interview.Pt was sitting in her wheelchair in the day room. Pt's leg is amputated below the knee on her left leg. Pt ambulates with a wheelchair. AT explained groups that are offered on [facility]. AT then asked pt what activities she enjoys. Pt said she likes reading, watching TV and listening to music.Pt needed some pharmaceutical assistant listing leisure preferences. Pt is aware and oriented to most facts and details. Pt said that she is not nor does she have children. AT asked pt what brought her here and she said "I'm crazy." AT asked pt to explain why she thinks that. Pt said that the doctor told her she was crazy. AT then asked pt if she felt stressed at this point in time and pt reported no stress. AT asked pt how she jyothi with stress and pt said "I cope with it the best I can." AT then asked pt if she came from home or a facility prior to admission and pt said that she thinks she she came from home. Pt said that she lived on her own. Per notes came from a facility. Initial goal aimed to support socialization and engagement. Pt will participate in at least three individual or group Activity Therapy sessions per week.
[2020-10-16 15:50] VITALS: BP 103/71
--- NOTE | 2020-10-16 16:57 | NUR ---
Nursing note: Pt in dining room at time of AM med pass and assessment. She was compliant with meds floated in applesauce and cooperative with assessment. Pt denies having any pain/concerns. Pt is very pleasant and social with staff and peers. She occasionally will call out for help and is unable to remember why she asked for help. She is currently in the dining room getting ready for supper. Will continue to monitor.
[2020-10-16] MEDS: MELATONIN 3 MG TABLET PO SCH (21:11)
[2020-10-16] MEDS: ATORVASTATIN CALCIUM 20 MG TABLET PO SCH (21:12)
--- NOTE | 2020-10-17 02:25 | NUR ---
Nursing Note The patient was located in her room for her assessment and medication pass. The patient was calm and cooperative during her assessment and medication pass. The patient took her medication whole. The patient is currently sleeping in her room.
--- NOTE | 2020-10-17 03:01 | PN ---
DATE: 10/16/2020 SUBJECTIVE: The patient was seen today, met with the staff, chart reviewed and also covering for Dr. Conteh. Staff reports no major behavioral problems. She is calm, cooperative and medication compliant. OBJECTIVE: VITAL SIGNS: Temperature 98.2, blood pressure 91/60, pulse 70, respirations 20, O2 sat 95%. GENERAL: Slept about 7 hours last night. The patient's appetite improved. MEDICATIONS: Reviewed. The patient currently on Zoloft 50 mg daily, Depakote sprinkles 500 mg 3 times a day, Risperdal 0.5 mg twice a day, melatonin 3 mg at night and gabapentin 100 mg twice a day. She is also on Depakote 750 mg at night. LABORATORY DATA: The patient's lab reviewed. The patient's Depakote level was 58. The patient's appetite, normal. ASSESSMENT: 1. Schizoaffective disorder, bipolar type, mixed with psychotic features. 2. Generalized anxiety disorder. 3. Impulse control disorder, unspecified. PLAN: To continue with the current treatment plan. LENGTH OF STAY: 10-[address]: Roney TID: [id number]
[2020-10-17 06:03] VITALS: BP 93/64
[2020-10-17 06:27] LABS: BACTERIA,URINE MANY /HPF (0-FEW); BILIRUBIN,URINE NEG (NEG); CLARITY,URINE CLEAR; COLOR,URINE YELLOW; GLUCOSE,URINE NEG (NEG); NITRITE,URINE POS (NEG); RBC,URINE 0 /HPF (0-2); SQUAMOUS EPITHELIAL CELL,UR OCC /LPF; UROBILINOGEN,URINE 0.2 mg/dL (0.2 mg/dL)
[2020-10-17] MEDS: INSULIN LISPRO 300 UNITS/3 ML VIAL. SQ SCH ×3 (07:55→17:00)
[2020-10-17] MEDS: metFORMIN 500 MG TABLET PO SCH ×2 (08:42→17:10)
[2020-10-17] MEDS: CYANOCOBALAMIN (VITAMIN B-12) 250 MCG TABLET. PO SCH (08:42)
[2020-10-17] MEDS: ASPIRIN ENTERIC COATED 81 MG TABLET.DR. PO SCH (08:43)
[2020-10-17] MEDS: POTASSIUM CHLORIDE 10 MEQ TABLET.ER. PO SCH (08:43)
[2020-10-17] MEDS: APIXABAN 5 MG TABLET. PO SCH ×2 (08:43→20:31)
[2020-10-17] MEDS: risperiDONE 0.5 MG TABLET. PO SCH ×2 (08:43→20:30)
[2020-10-17] MEDS: LACTOBACILLUS RHAMNOSUS GG 1 CAPSULE. PO SCH (08:43)
[2020-10-17] MEDS: MULTIVITAMIN with MINERAL TABLET. PO SCH (08:43)
[2020-10-17] MEDS: CHOLECALCIFEROL (VITAMIN D3) 1,000 UNIT TABLET PO SCH (08:43)
[2020-10-17] MEDS: PANTOPRAZOLE 40 MG TABLET. PO SCH ×2 (08:44→17:10)
[2020-10-17] MEDS: FUROSEMIDE 20 MG TABLET PO SCH (08:44)
[2020-10-17] MEDS: LINAGLIPTIN 5 MG TABLET PO SCH (08:44)
[2020-10-17] MEDS: DIVALPROEX 125 MG CAP.SPRINK PO SCH ×4 (08:44→20:31)
[2020-10-17] MEDS: SERTRALINE 50 MG TABLET. PO SCH (08:44)
[2020-10-17] MEDS: GABAPENTIN 100 MG CAPSULE. PO SCH ×2 (08:44→20:30)
[2020-10-17] MEDS: NYSTATIN TOPICAL POWDER 15GM BOTTLE. TP SCH ×2 (08:51→20:30)
[2020-10-17] MEDS: METOPROLOL SUCC 24HR ER 50 MG TAB.ER.24H. PO SCH (08:51)
[2020-10-17] MEDS: INSULIN GLARGINE SYRINGE. SQ SCH (10:25)
--- NOTE | 2020-10-17 10:50 | NUR ---
PSYCHOSOCIAL ASSESSMENT ADMISSION DATE: 10/14/20 CONTACT INFORMATION: DPOA/Guardian Contact Name: Jerman Carrera Contact Address: [place] [address] Contact Phone #: ETHNIC ORIGIN: REASONS FOR ADMISSION: ADDITIONAL ADMISSION COMMENTS: According to the intake pt is refusing showers and baths, threatening to kick other's asses, yelling out, name calling peers, belligerent, verbally aggressive, cursing, socially disruptive, agitated, bangs on the duncan, throwing things during outbursts. REASON FOR ADMISSION IN PATIENT/FAMILY'S OWN WORDS: Needs further medication evaluation PATIENT/FAMILY EXPECTATIONS FOR ADMISSION: Medication and behavioral mgmt LIVING SITUATION: Patient lives with: Usp Other living arrangements: Contact Name: [facility] Contact Address: [address] [place] [id number] Contact Phone #: Contact Fax #: FAMILY RELATIONS: Marital Status: Single # of Marriages: 0 # of Children: 0 [facility] Family Support: Involved in DC Planning Additional Comments r/t Family: Pt has never and never had any children. SIGNIFICANT PSYCHIATRIC/MEDICAL HISTORY: Psychiatric/Treatment History: This is pt 2nd admission to [facility], her first June 16, 2020. She has a previous evaluation through an out psychiatrist who reported some short term memory deficits. Pertinent Family History: According to pt brother, there are no major mental illness in the family. Pt father did have Parkinson's and displayed Dementia symptoms (Parkinson's related) towards the end of life. HISTORICAL DATA: Childhood Environment: [place] Supportive Childhood Environment Additional Comments: Pt grew up with both parents in [place] Her father was a police patrol officer and did some part-time gigs for supplemental income. Pt mother was mostly a SAHM with intermittent periods of working random jobs as well. Pt has 1 brother Jerman, who reports that they grew up in a supportive home with everything they needed. 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 service: N Advent background: Grew up Sikh; but does not currently practice any Nikia Sexual orientation: Heterosexual Educational Level: Pt graduated High School (12th grade) and attended college in [place]. Pt has a Bachelors and Masters in Business Administration. Past/Present Interests/Hobbies: Watch TV and tons of chain smoking, thrift shopping, used to [place] (but went [place]) Financial support/resources: Correction/Pension Monthly income: Person handling finances: Money immediately goes to [facility] d/t Medicaid ins. Do you have a history of legal problems: N Cultural considerations: None SOCIAL RELATIONSHIPS-CURRENT/PAST: Psychiatrist: None PCP: Rand Pagan Counselor/Therapist: counselor seen through telehealth Veterans[employer] Administration: None Support Group: None Due Diligence Coordinator/Weather Algorithm Scientist: Stefanie @ [facility] Other relationships: staff @ [facility] STRENGTHS & WEAKNESSES: Patient's strengths: Good family support Good verbal skills Other patient strengths: Patient's weaknesses: Impulsive Health problems Physically Aggressive Verbally Aggressive Other patient weaknesses: PRELIMINARY PLAN OF TREATMENT: Preliminary plan: Dec. Hallucination/Delus Promote Coping Skill Improved Social Skills Dec. Outbursts Dec. Aggression Other preliminary treatment comments: DISCHARGE PLANNING: Discharge planning/disposition: Current Living Arrange. Additional discharge needs identified: Psychiatric services ADDITIONAL INFORMATION: Other Pertinent Data: PSA was completed from pt prior admission. In talking to pt brother, he believes pt just needs her medications tweaked again. It was noted that pt will need a UA completed and wonders if pt has a UTI, which is causing behaviors also. SW will contact Jerman with updates over pt stay.
--- NOTE | 2020-10-17 13:16 | TX PLAN ---
Interdisciplinary Tx Plan Admission Information October 14, 2020 at 07:30 Legal Status (on Admission): Voluntary DPOA/Guardian Name: Jerman Carrera Contact Other Contact Name: [facility] Other Contact Verified Code Status: Full Code Allergies: Coded Allergies: I S O L A T I O N *CONTACT* (Verified Allergy, Unknown, 06/21/20) ESBL amoxicillin (Verified Allergy, Unknown, 06/16/20) clavulanic acid (Verified Allergy, Unknown, 06/16/20) doxycycline (Verified Allergy, Unknown, 06/16/20) Diagnoses Primary Diagnosis: Schizoaffective D/O, Bipolar type Reasons for Admission: Aggressive, Angry, Combative, Confusion/Disoriented Problem in Patient's Words: Needs further medication evaluation Additional Admission Comments: According to the intake pt is refusing showers and baths, threatening to kick other's asses, yelling out, name calling peers, belligerent, verbally aggressive, cursing, socially disruptive, agitated, bangs on the duncan, throwing things during outbursts. Problems Active Problems: Agitated possible UTI attention-seeking Inactive Problems: medication mgmt redirectable Pt Strengths/Limitations Ability for [place]: Poor Cognitive Functioning/Ability: Poor Communication Skills/Ability: Fair Financial Resources: Fair Insight/Judgement: Poor Intellectual Ability: Fair Physical Health: Poor Social Skills: Fair Stability in Family: Good Stability in School/Work: Poor Verbal Skills: Fair Discharge Criteria Discharge Criteria: No need for close observ., Adequate arrangements @DC, Improved behavior, Improved mood/thought Preliminary Discharge Plan Preliminary DC Plan: Current Living Arrange. Special Precautions Fall Risk: Moderate Initial D/C Plan Pt to return to [facility] once stable Identified Discharge Needs: Psychiatric services Currently Utilized Resources Currently Utilized Resources/P: Primary Care physician Identified Problems/Hx/Goals Objectives/Short-Term Goals Short Term Goals: Dec. Aggression, Dec. Hallucination/Delus, Dec. Outbursts, Improved Social Skills, Promote Coping Skill Short Term Goals in Patient's: NA Interventions/Frequency Staff Interventions/Frequency&: Psychiatrist to assess pt at least 3x per week for medication mgmt. Social Work to assess pt at least 2x per week to identify barriers to care and discharge planning. Nursing to assess medication effects, behavior management and completion of 15 minute checks daily. Encourage participation in group activities (if applicable) or 1:1 engagement based off Activity Dept goals. 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 Education: Pt graduated High School (12th grade) and attended college in [place]. Pt has a Bachelors and Masters in Business Administration. 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
--- NOTE | 2020-10-17 14:00 | NUR ---
Nursing note: Pt in hallway at time of AM med pass and assessment. She is pleasant, compliant with meds floated and cooperative with assessment. Pt has no complaints of pain/concerns. She has spent most of the shift in the day room, but is currently resting quietly in bed. Will continue to monitor.
[2020-10-17 16:00] VITALS: BP 117/78
[2020-10-17] MEDS: MELATONIN 3 MG TABLET PO SCH (20:30)
[2020-10-17] MEDS: ATORVASTATIN CALCIUM 20 MG TABLET PO SCH (20:31)
--- NOTE | 2020-10-17 23:56 | NUR ---
Nursing Note The patient was up in her wheel chair while awake this shift. The patient was pleasant and interactive with this nurse during her assessment and medication pass. The patient was cooperative with her medication and took them whole. The patient is currently sleeping in her room. The patient was alert to name, date and location.
[2020-10-18 05:49] VITALS: BP 107/63
[2020-10-18] MEDS: INSULIN LISPRO 300 UNITS/3 ML VIAL. SQ SCH ×3 (08:00→17:00)
[2020-10-18] MEDS: METOPROLOL SUCC 24HR ER 50 MG TAB.ER.24H. PO SCH (08:21)
[2020-10-18] MEDS: PANTOPRAZOLE 40 MG TABLET. PO SCH ×2 (08:21→17:30)
[2020-10-18] MEDS: ASPIRIN ENTERIC COATED 81 MG TABLET.DR. PO SCH (08:21)
[2020-10-18] MEDS: metFORMIN 500 MG TABLET PO SCH ×2 (08:21→17:30)
[2020-10-18] MEDS: MULTIVITAMIN with MINERAL TABLET. PO SCH (08:21)
[2020-10-18] MEDS: APIXABAN 5 MG TABLET. PO SCH ×2 (08:21→20:12)
[2020-10-18] MEDS: CYANOCOBALAMIN (VITAMIN B-12) 250 MCG TABLET. PO SCH (08:22)
[2020-10-18] MEDS: DIVALPROEX 125 MG CAP.SPRINK PO SCH ×4 (08:22→20:12)
[2020-10-18] MEDS: LACTOBACILLUS RHAMNOSUS GG 1 CAPSULE. PO SCH (08:22)
[2020-10-18] MEDS: CHOLECALCIFEROL (VITAMIN D3) 1,000 UNIT TABLET PO SCH (08:22)
[2020-10-18] MEDS: POTASSIUM CHLORIDE 10 MEQ TABLET.ER. PO SCH (08:22)
[2020-10-18] MEDS: risperiDONE 0.5 MG TABLET. PO SCH ×2 (08:23→20:11)
[2020-10-18] MEDS: SERTRALINE 50 MG TABLET. PO SCH (08:23)
[2020-10-18] MEDS: LINAGLIPTIN 5 MG TABLET PO SCH (08:23)
[2020-10-18] MEDS: NYSTATIN TOPICAL POWDER 15GM BOTTLE. TP SCH ×2 (08:23→20:11)
[2020-10-18] MEDS: FUROSEMIDE 20 MG TABLET PO SCH (08:23)
[2020-10-18] MEDS: GABAPENTIN 100 MG CAPSULE. PO SCH ×2 (08:23→20:11)
[2020-10-18] MEDS: INSULIN GLARGINE SYRINGE. SQ SCH (09:00)
--- NOTE | 2020-10-18 11:13 | NUR ---
Nursing note: Pt in dining room for AM med pass and assessment. Pt wished for her meds to be crushed in applesauce this AM for easier swallowing. Pt was compliant with meds crushed and cooperative with assessment. She denies having any pain/concerns. She has been propelling herself around the unit and has not yelled out as of yet this shift. Will continue to monitor.
[2020-10-18 16:03] VITALS: BP 116/72
[2020-10-18] MEDS: ATORVASTATIN CALCIUM 20 MG TABLET PO SCH (20:11)
[2020-10-18] MEDS: MELATONIN 3 MG TABLET PO SCH (20:12)
--- NOTE | 2020-10-19 00:24 | PN ---
DATE: 10/18/2020 SUBJECTIVE: The patient was seen today, met with the staff, chart reviewed. The patient continues to show improvement, pleasant, somewhat withdrawn on wheelchair. The patient has not presented with any major behavior problems today and no medical complaints. PHYSICAL EXAMINATION: VITAL SIGNS: Temperature 97.0, blood pressure 107/63, pulse 79, respirations 16, O2 sat 84%. Slept about 6 hours last night. The patient's appetite normal. CURRENT MEDICATIONS: Include Zoloft 50 mg daily, Depakote Sprinkles 500 mg 3 times daily, Risperdal 0.5 mg twice a day, melatonin 3 mg at night, gabapentin 100 mg twice a day. She is also on Depakote 750 mg at night. LABORATORY DATA: The patient's lab reviewed. The patient's Depakote level was 58. ASSESSMENT: 1. Schizoaffective disorder, bipolar type, mixed with psychotic features. 2. Generalized anxiety disorder. 3. Impulse control disorder, unspecified. PLAN: To continue with the current treatment plan. LENGTH OF STAY: 10 to [address]: Roney TID: [id number]
--- NOTE | 2020-10-19 00:33 | PN ---
DATE: 10/17/2020 SUBJECTIVE: The patient was seen today via telehealth. Discussed with the staff and reviewed the chart. Staff reports no major behavior problems. The patient still does not remember the events that brought her here from [place] [facility]. The patient also has some mild cognitive disorder, tend to forget things. OBJECTIVE: The patient's vital signs stable. Appetite improved. Sleeping fair. MEDICATIONS: The patient's medication reviewed and not having any side effects. LABORATORY DATA: The patient's lab reviewed. ASSESSMENT: 1. Schizoaffective disorder, bipolar type with psychotic features. 2. Generalized anxiety disorder. 3. Impulse control disorder, unspecified. PLAN: Continue with the current treatment. LENGTH OF STAY: 10-[address]: Roney TID: [id number]
--- NOTE | 2020-10-19 01:09 | NUR ---
Last evening pt wheeled self around the unit and has been pleasant and cooperative. Meds were taken whole she cooperated with cares and has had no behaviors tonight.
[2020-10-19 05:41] VITALS: BP 104/61
[2020-10-19] MEDS: INSULIN LISPRO 300 UNITS/3 ML VIAL. SQ SCH ×3 (08:00→17:00)
[2020-10-19] MEDS: MULTIVITAMIN with MINERAL TABLET. PO SCH (09:28)
[2020-10-19] MEDS: CHOLECALCIFEROL (VITAMIN D3) 1,000 UNIT TABLET PO SCH (09:29)
[2020-10-19] MEDS: APIXABAN 5 MG TABLET. PO SCH ×2 (09:30→20:39)
[2020-10-19] MEDS: FUROSEMIDE 20 MG TABLET PO SCH (09:30)
[2020-10-19] MEDS: METOPROLOL SUCC 24HR ER 50 MG TAB.ER.24H. PO SCH (09:30)
[2020-10-19] MEDS: LACTOBACILLUS RHAMNOSUS GG 1 CAPSULE. PO SCH (09:30)
[2020-10-19] MEDS: DIVALPROEX 125 MG CAP.SPRINK PO SCH ×4 (09:31→20:39)
[2020-10-19] MEDS: CYANOCOBALAMIN (VITAMIN B-12) 250 MCG TABLET. PO SCH (09:31)
[2020-10-19] MEDS: POTASSIUM CHLORIDE 10 MEQ TABLET.ER. PO SCH (09:31)
[2020-10-19] MEDS: LINAGLIPTIN 5 MG TABLET PO SCH (09:31)
[2020-10-19] MEDS: metFORMIN 500 MG TABLET PO SCH ×2 (09:31→17:34)
[2020-10-19] MEDS: PANTOPRAZOLE 40 MG TABLET. PO SCH ×2 (09:32→17:34)
[2020-10-19] MEDS: SERTRALINE 50 MG TABLET. PO SCH (09:32)
[2020-10-19] MEDS: GABAPENTIN 100 MG CAPSULE. PO SCH ×2 (09:32→20:39)
[2020-10-19] MEDS: risperiDONE 0.5 MG TABLET. PO SCH ×2 (09:32→20:39)
[2020-10-19] MEDS: ASPIRIN ENTERIC COATED 81 MG TABLET.DR. PO SCH (09:33)
[2020-10-19] MEDS: NYSTATIN TOPICAL POWDER 15GM BOTTLE. TP SCH ×2 (09:33→20:39)
[2020-10-19] MEDS: INSULIN GLARGINE SYRINGE. SQ SCH (09:37)
[2020-10-19 16:06] VITALS: BP 120/77
--- NOTE | 2020-10-19 18:30 | NUR ---
Patient has been disorganized, helpless, and mildly confused throughout this shift. She has been compliant with medications. Patient frequently calls out for help, then is unable to describe what she needs help with, usually stating 'I need you to help me' or 'I don't remember'. Patient's UA positive for ESBL, she was placed in contact isolation in her room. MD notified during rounds, will continue to monitor.
[2020-10-19] MEDS: ATORVASTATIN CALCIUM 20 MG TABLET PO SCH (20:39)
[2020-10-19] MEDS: MELATONIN 3 MG TABLET PO SCH (20:39)
--- NOTE | 2020-10-19 22:15 | PN ---
DATE: 10/19/2020 SUBJECTIVE: The patient was seen today, met with the staff, chart reviewed. Staff reports no major problems. She is calm, cooperative and medication compliant. OBSERVATION: VITAL SIGNS: Temperature 97.6, blood pressure 120/77, pulse 82, respirations 16, O2 sat 99%. GENERAL: The patient's appetite improved. MEDICATIONS: Reviewed, not having any side effects. LABORATORY DATA: Reviewed. ASSESSMENT: 1. Schizoaffective disorder, bipolar type with psychotic features. 2. Generalized anxiety disorder. 3. Impulse control disorder, unspecified. PLAN: To continue with treatment. LENGTH OF STAY: 10-[address]: Roney TID: [id number]
--- NOTE | 2020-10-20 00:50 | NUR ---
Pt withdrawn to her room, lying in bed awake when approached. Pt calm and pleasant during encounter but will intermittently yell out "Help". Pt cooperative with assessment and compliant with medications administered crushed in pudding. No agitation or aggression noted thus far this shift.
[2020-10-20 06:03] VITALS: BP 95/60
[2020-10-20] MEDS: PANTOPRAZOLE 40 MG TABLET. PO SCH ×2 (08:40→17:17)
[2020-10-20] MEDS: CHOLECALCIFEROL (VITAMIN D3) 1,000 UNIT TABLET PO SCH (08:40)
[2020-10-20] MEDS: DIVALPROEX 125 MG CAP.SPRINK PO SCH ×4 (08:40→20:23)
[2020-10-20] MEDS: MULTIVITAMIN with MINERAL TABLET. PO SCH (08:40)
[2020-10-20] MEDS: APIXABAN 5 MG TABLET. PO SCH ×2 (08:40→20:23)
[2020-10-20] MEDS: LACTOBACILLUS RHAMNOSUS GG 1 CAPSULE. PO SCH (08:41)
[2020-10-20] MEDS: risperiDONE 0.5 MG TABLET. PO SCH ×2 (08:41→20:23)
[2020-10-20] MEDS: ASPIRIN ENTERIC COATED 81 MG TABLET.DR. PO SCH (08:42)
[2020-10-20] MEDS: FUROSEMIDE 20 MG TABLET PO SCH (08:42)
[2020-10-20] MEDS: CYANOCOBALAMIN (VITAMIN B-12) 250 MCG TABLET. PO SCH (08:42)
[2020-10-20] MEDS: SERTRALINE 50 MG TABLET. PO SCH (08:42)
[2020-10-20] MEDS: LINAGLIPTIN 5 MG TABLET PO SCH (08:42)
[2020-10-20] MEDS: NYSTATIN TOPICAL POWDER 15GM BOTTLE. TP SCH ×2 (08:42→20:23)
[2020-10-20] MEDS: POTASSIUM CHLORIDE 10 MEQ TABLET.ER. PO SCH (08:42)
[2020-10-20] MEDS: metFORMIN 500 MG TABLET PO SCH ×2 (08:43→17:17)
[2020-10-20] MEDS: GABAPENTIN 100 MG CAPSULE. PO SCH ×2 (08:43→20:23)
[2020-10-20] MEDS: INSULIN LISPRO 300 UNITS/3 ML VIAL. SQ SCH ×3 (08:43→17:00)
[2020-10-20] MEDS: METOPROLOL SUCC 24HR ER 50 MG TAB.ER.24H. PO SCH (08:48)
[2020-10-20] MEDS: ERTAPENEM 1 GM in IV NORMAL SALINE 50ML 50 ML IV SCH (09:57)
[2020-10-20] MEDS: INSULIN GLARGINE SYRINGE. SQ SCH (10:08)
[2020-10-20 15:40] VITALS: BP 111/69
[2020-10-20] MEDS: ATORVASTATIN CALCIUM 20 MG TABLET PO SCH (20:23)
[2020-10-20] MEDS: MELATONIN 3 MG TABLET PO SCH (20:23)
--- NOTE | 2020-10-21 00:01 | PN ---
DATE: 10/20/2020 SUBJECTIVE: The patient was seen today, met with the staff. Chart reviewed and also covering for Dr. Conteh. The patient continues to show improvement. Staff reports no major complaints. She is calm, cooperative and medication compliant. OBSERVATION: VITAL SIGNS: Temperature 97.2, blood pressure 95/60, pulse 73, respirations 16, O2 sat 92%. Slept about 7 hours last night. The patient's appetite is normal. MEDICATIONS: The patient's medications reviewed. She is not having any side effects. LABORATORY DATA: The patient's lab reviewed. ASSESSMENT: 1. Schizoaffective disorder, bipolar type with psychotic features. 2. Generalized anxiety disorder. 3. Impulse control disorder, unspecified. PLAN: To continue with treatment. LENGTH OF STAY: 10-[address]: Roney TID: [id number]
--- NOTE | 2020-10-21 01:46 | NUR ---
Pt withdrawn to room, lying in bed when approached. Pt calm, pleasant, and interactive during encounter. Pt yelling out occasionally. Pt cooperative with assessment and compliant with medications administered crushed.
[2020-10-21 06:14] VITALS: BP 117/69
[2020-10-21] MEDS: INSULIN LISPRO 300 UNITS/3 ML VIAL. SQ SCH ×3 (08:00→17:00)
[2020-10-21] MEDS: ASPIRIN ENTERIC COATED 81 MG TABLET.DR. PO SCH (09:50)
[2020-10-21] MEDS: ERTAPENEM 1 GM in IV NORMAL SALINE 50ML 50 ML IV SCH (09:50)
[2020-10-21] MEDS: MULTIVITAMIN with MINERAL TABLET. PO SCH (09:50)
[2020-10-21] MEDS: PANTOPRAZOLE 40 MG TABLET. PO SCH ×2 (09:50→20:12)
[2020-10-21] MEDS: NYSTATIN TOPICAL POWDER 15GM BOTTLE. TP SCH ×2 (09:50→20:15)
[2020-10-21] MEDS: SERTRALINE 50 MG TABLET. PO SCH (09:50)
[2020-10-21] MEDS: CHOLECALCIFEROL (VITAMIN D3) 1,000 UNIT TABLET PO SCH (09:51)
[2020-10-21] MEDS: LINAGLIPTIN 5 MG TABLET PO SCH (09:51)
[2020-10-21] MEDS: CYANOCOBALAMIN (VITAMIN B-12) 250 MCG TABLET. PO SCH (09:51)
[2020-10-21] MEDS: METOPROLOL SUCC 24HR ER 50 MG TAB.ER.24H. PO SCH (09:51)
[2020-10-21] MEDS: LACTOBACILLUS RHAMNOSUS GG 1 CAPSULE. PO SCH (09:51)
[2020-10-21] MEDS: risperiDONE 0.5 MG TABLET. PO SCH ×2 (09:52→20:12)
[2020-10-21] MEDS: DIVALPROEX 125 MG CAP.SPRINK PO SCH ×4 (09:52→20:12)
[2020-10-21] MEDS: metFORMIN 500 MG TABLET PO SCH ×2 (09:52→17:00)
[2020-10-21] MEDS: APIXABAN 5 MG TABLET. PO SCH ×2 (09:53→20:12)
[2020-10-21] MEDS: GABAPENTIN 100 MG CAPSULE. PO SCH ×2 (09:53→20:12)
[2020-10-21] MEDS: FUROSEMIDE 20 MG TABLET PO SCH (09:53)
[2020-10-21] MEDS: POTASSIUM CHLORIDE 10 MEQ TABLET.ER. PO SCH (09:53)
[2020-10-21] MEDS: INSULIN GLARGINE SYRINGE. SQ SCH ×2 (10:03→17:00)
[2020-10-21 16:04] VITALS: BP 109/71
[2020-10-21] MEDS: ATORVASTATIN CALCIUM 20 MG TABLET PO SCH (20:12)
[2020-10-21] MEDS: MELATONIN 3 MG TABLET PO SCH (20:12)
--- NOTE | 2020-10-21 22:50 | NUR ---
Pt sitting up in w/c in her room when approached. Pt calm, pleasant, and interactive when approached. Pt cooperative with assessment and compliant with medications administered crushed in pudding. No agitation, aggression, or yelling out thus far this shift.
--- NOTE | 2020-10-21 22:57 | PN ---
DATE: 10/21/2020 SUBJECTIVE: The patient was seen today, met with the staff. Chart was reviewed and also covering for Dr. Conteh. Staff reports no major behavioral problems. She is withdrawn, some decreased psychomotor activity, but she is calm, cooperative and medication compliant. The patient complains of feeling tired. OBSERVATION: VITAL SIGNS: Temperature 98.9, blood pressure 117/69, pulse 83, respirations 16, O2 sat 95%. GENERAL: Slept about 9 hours last night. The patient's appetite is fair. CURRENT MEDICATIONS: The patient's medications reviewed. No new side effects. LABORATORY DATA: The patient's lab reviewed. ASSESSMENT: 1. Schizoaffective disorder, bipolar type with psychotic features. 2. Generalized anxiety disorder. 3. Impulse control disorder, unspecified. PLAN: To continue with treatment. LENGTH OF STAY: 10-[address]: Roney TID: [id number]
[2020-10-22 05:57] VITALS: BP 111/71
[2020-10-22] MEDS: ERTAPENEM 1 GM in IV NORMAL SALINE 50ML 50 ML IV SCH (08:40)
[2020-10-22] MEDS: metFORMIN 500 MG TABLET PO SCH ×2 (08:41→17:47)
[2020-10-22] MEDS: NYSTATIN TOPICAL POWDER 15GM BOTTLE. TP SCH ×2 (08:41→20:31)
[2020-10-22] MEDS: MULTIVITAMIN with MINERAL TABLET. PO SCH (08:42)
[2020-10-22] MEDS: GABAPENTIN 100 MG CAPSULE. PO SCH ×2 (08:42→20:30)
[2020-10-22] MEDS: PANTOPRAZOLE 40 MG TABLET. PO SCH ×2 (08:42→17:47)
[2020-10-22] MEDS: risperiDONE 0.5 MG TABLET. PO SCH ×2 (08:42→20:30)
[2020-10-22] MEDS: SERTRALINE 50 MG TABLET. PO SCH (08:42)
[2020-10-22] MEDS: ASPIRIN ENTERIC COATED 81 MG TABLET.DR. PO SCH (08:42)
[2020-10-22] MEDS: LINAGLIPTIN 5 MG TABLET PO SCH (08:42)
[2020-10-22] MEDS: LACTOBACILLUS RHAMNOSUS GG 1 CAPSULE. PO SCH (08:42)
[2020-10-22] MEDS: POTASSIUM CHLORIDE 10 MEQ TABLET.ER. PO SCH (08:42)
[2020-10-22] MEDS: CYANOCOBALAMIN (VITAMIN B-12) 250 MCG TABLET. PO SCH (08:42)
[2020-10-22] MEDS: FUROSEMIDE 20 MG TABLET PO SCH (08:42)
[2020-10-22] MEDS: METOPROLOL SUCC 24HR ER 50 MG TAB.ER.24H. PO SCH (08:43)
[2020-10-22] MEDS: DIVALPROEX 125 MG CAP.SPRINK PO SCH ×4 (08:43→20:31)
[2020-10-22] MEDS: CHOLECALCIFEROL (VITAMIN D3) 1,000 UNIT TABLET PO SCH (08:43)
[2020-10-22] MEDS: APIXABAN 5 MG TABLET. PO SCH ×2 (08:43→20:30)
[2020-10-22] MEDS: INSULIN GLARGINE SYRINGE. SQ SCH (08:57)
[2020-10-22] MEDS: INSULIN LISPRO 300 UNITS/3 ML VIAL. SQ SCH ×3 (08:58→17:00)
[2020-10-22 10:25] LABS: BASO % 0 % (0-3); EOS % 0 % (0-3); HEMATOCRIT 36.6 % (36.0-47.0); HEMOGLOBIN 12.1 g/dL (12.0-15.5); LYMPH # 1.1 x10^3/uL (1.0-4.8); LYMPH % 11 % (24-48); MEAN CORPUSCULAR HEMOGLOBIN 30 pg (25-35); MEAN CORPUSCULAR HGB CONC 33 g/dL (31-37); MEAN CORPUSCULAR VOLUME 91 fL (79-100); MONO % 9 % (0-9); NEUT # 8.4 x10^3uL (1.8-7.7); NEUT % 80 % (31-73); PLATELET COUNT 170 x10^3/uL (140-400); RED BLOOD COUNT 4.03 x10^6/uL (3.50-5.40); RED CELL DISTRIBUTION WIDTH 18.2 % (11.5-14.5); WHITE BLOOD COUNT 10.5 x10^3/uL (4.0-11.0)
[2020-10-22 10:35] LABS: ALBUMIN 2.5 g/dL (3.4-5.0); ALBUMIN/GLOBULIN RATIO 0.6 (1.0-1.7); CALCIUM 8.8 mg/dL (8.5-10.1); POTASSIUM 4.3 mmol/L (3.5-5.1); TOTAL BILIRUBIN 0.3 mg/dL (0.2-1.0); TOTAL PROTEIN 6.4 g/dL (6.4-8.2)
[2020-10-22 15:25] VITALS: BP 103/65
--- NOTE | 2020-10-22 16:36 | NUR ---
nsg note; shift behavior sarbjit has stayed in her room because she is in contact isolation for ESBL. she was up in her wheelchair at shift change, awake and alert. she will answer short questions but longer questions confuse her and she stays silent. she feeds herself and was med compliant. after lunch, she was put back for a nap
[2020-10-22] MEDS: MELATONIN 3 MG TABLET PO SCH (20:30)
[2020-10-22] MEDS: ATORVASTATIN CALCIUM 20 MG TABLET PO SCH (20:30)
--- NOTE | 2020-10-23 00:53 | PN ---
DATE: 10/22/2020 SUBJECTIVE: The patient was seen today, met with the staff, chart reviewed. The patient complains of feeling tired. Staff reports that she has been staying in bed most of the time, but not presenting with any major problems and she is medication compliant. The patient has not presented with any major behavior problems. No psychotic behaviors. OBSERVATION: VITAL SIGNS: Temperature 98.1, blood pressure 111/71, pulse 86, respirations 18, O2 sat 93%. GENERAL: Slept about 7 hours last night. The patient's appetite is fair. LABORATORY DATA: The patient's lab reviewed. MEDICATIONS: The patient's medications reviewed. No new side effects. ASSESSMENT: 1. Schizoaffective disorder, bipolar type with psychotic features. 2. Generalized anxiety disorder. 3. Impulse control disorder, unspecified. PLAN: To continue with the treatment. The patient's Depakote was decreased to 500 mg b.i.d. and 750 mg at night and she will continue on the Risperdal 0.5 mg twice a day and Zoloft 50 mg daily. LENGTH OF STAY: 10-[address]: Roney TID: [id number]
--- NOTE | 2020-10-23 01:00 | NUR ---
Nursing Note The patient was located in her room for her assessment and medication pass. The patient took her medication whole. The patient was alert to name, date and location. The patient was pleasant and appropriate during interactions with this nurse. The patient is currently sleeping in her room.
[2020-10-23 05:36] VITALS: BP 101/65
[2020-10-23] MEDS: INSULIN LISPRO 300 UNITS/3 ML VIAL. SQ SCH ×3 (08:00→17:00)
[2020-10-23] MEDS: FUROSEMIDE 20 MG TABLET PO SCH (10:03)
[2020-10-23] MEDS: POTASSIUM CHLORIDE 10 MEQ TABLET.ER. PO SCH (10:04)
[2020-10-23] MEDS: LINAGLIPTIN 5 MG TABLET PO SCH (10:04)
[2020-10-23] MEDS: NYSTATIN TOPICAL POWDER 15GM BOTTLE. TP SCH ×2 (10:04→21:00)
[2020-10-23] MEDS: ASPIRIN ENTERIC COATED 81 MG TABLET.DR. PO SCH (10:04)
[2020-10-23] MEDS: CYANOCOBALAMIN (VITAMIN B-12) 250 MCG TABLET. PO SCH (10:04)
[2020-10-23] MEDS: LACTOBACILLUS RHAMNOSUS GG 1 CAPSULE. PO SCH (10:04)
[2020-10-23] MEDS: APIXABAN 5 MG TABLET. PO SCH ×2 (10:05→20:54)
[2020-10-23] MEDS: metFORMIN 500 MG TABLET PO SCH ×2 (10:05→16:58)
[2020-10-23] MEDS: GABAPENTIN 100 MG CAPSULE. PO SCH ×2 (10:05→20:54)
[2020-10-23] MEDS: PANTOPRAZOLE 40 MG TABLET. PO SCH ×2 (10:05→16:57)
[2020-10-23] MEDS: risperiDONE 0.5 MG TABLET. PO SCH ×2 (10:06→20:54)
[2020-10-23] MEDS: MULTIVITAMIN with MINERAL TABLET. PO SCH (10:06)
[2020-10-23] MEDS: SERTRALINE 50 MG TABLET. PO SCH (10:06)
[2020-10-23] MEDS: METOPROLOL SUCC 24HR ER 50 MG TAB.ER.24H. PO SCH (10:06)
[2020-10-23] MEDS: CHOLECALCIFEROL (VITAMIN D3) 1,000 UNIT TABLET PO SCH (10:06)
[2020-10-23] MEDS: DIVALPROEX 125 MG CAP.SPRINK PO SCH ×3 (10:07→20:54)
[2020-10-23] MEDS: INSULIN GLARGINE SYRINGE. SQ SCH (10:12)
[2020-10-23] MEDS: ERTAPENEM 1 GM in IV NORMAL SALINE 50ML 50 ML IV SCH (10:30)
--- NOTE | 2020-10-23 13:34 | NUR ---
WEEKLY ACTIVITY THERAPY NOTE Date of Admission: 10/14/20 Date of AT Assessment: 10/16 Precipitating behaviors that initiated intake and admission: yelling out, name calling, belligerent, verbally aggressive, cursing, socially disruptive, agitated, resistant to cares Goal aimed:support socialization and engagement Initial Goal: Pt will participate in at least three individual or group Activity Therapy sessions per week. Weekly progress towards goal: did not achieve, 1/3 Group participation level: 1 mod Weekly highlights: answered Get to Know You questions Friday Behaviors observed: prompting needs, withdrawn to room Plan: no change to goal Beneficial adaptations:music
[2020-10-23 15:38] VITALS: BP 87/54
--- NOTE | 2020-10-23 15:50 | TX PLAN ---
Interdisciplinary Tx Plan Admission Information October 14, 2020 at 07:30 Legal Status (on Admission): Voluntary DPOA/Guardian Name: Jerman Carrera Contact Other Contact Name: [facility] Other Contact Verified Code Status: Full Code Allergies: Coded Allergies: I S O L A T I O N *CONTACT* (Verified Allergy, Unknown, 06/21/20) ESBL amoxicillin (Verified Allergy, Unknown, 06/16/20) clavulanic acid (Verified Allergy, Unknown, 06/16/20) doxycycline (Verified Allergy, Unknown, 06/16/20) Diagnoses Primary Diagnosis: Schizoaffective D/O, Bipolar type Reasons for Admission: Aggressive, Angry, Combative, Confusion/Disoriented Problem in Patient's Words: Needs further medication evaluation Additional Admission Comments: According to the intake pt is refusing showers and baths, threatening to kick other's asses, yelling out, name calling peers, belligerent, verbally aggressive, cursing, socially disruptive, agitated, bangs on the duncan, throwing things during outbursts. Problems Active Problems: Agitated possible UTI attention-seeking Inactive Problems: medication mgmt redirectable Pt Strengths/Limitations Ability for [place]: Poor Cognitive Functioning/Ability: Poor Communication Skills/Ability: Fair Financial Resources: Fair Insight/Judgement: Poor Intellectual Ability: Fair Physical Health: Poor Social Skills: Fair Stability in Family: Good Stability in School/Work: Poor Verbal Skills: Fair Discharge Criteria Discharge Criteria: No need for close observ., Adequate arrangements @DC, Improved behavior, Improved mood/thought Preliminary Discharge Plan Preliminary DC Plan: Current Living Arrange. Special Precautions Fall Risk: Moderate Initial D/C Plan Pt to return to [facility] once stable Identified Discharge Needs: Psychiatric services Currently Utilized Resources Currently Utilized Resources/P: Primary Care physician Identified Problems/Hx/Goals Objectives/Short-Term Goals Short Term Goals: Dec. Aggression, Dec. Hallucination/Delus, Dec. Outbursts, Improved Social Skills, Promote Coping Skill Short Term Goals in Patient's: NA Interventions/Frequency Staff Interventions/Frequency&: Psychiatrist to assess pt at least 3x per week for medication mgmt. Social Work to assess pt at least 2x per week to identify barriers to care and discharge planning. Nursing to assess medication effects, behavior management and completion of 15 minute checks daily. Encourage participation in group activities (if applicable) or 1:1 engagement based off Activity Dept goals. 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 Education: Pt graduated High School (12th grade) and attended college in [place]. Pt has a Bachelors and Masters in Business Administration. Community Follow-up Primary Care Physician Treatment Plan Explained Patient/Veterinary Practice Manager had this treatment plan explained to him/her as indicated by the signature below and has been given the opportunity to ask questions and make suggestions: Date: Patient/Veterinary Practice Manager Signature: Status Update Update Pt is eating roughly 75% of meals; this morning, pt ate 100% of breakfast. Pt is mainly calm, cooperative and compliant with medications whole. Pt was able to attend one group this week with minimal participation before having to be in contact isolation due to ESBL in her urine. Pt has been noted to yell out a lot while in her room for help with various things; however, no physical aggression has been noted as reported upon admission. Pt will plan to return to [facility] at discharge. They have initiated a resident review to be completed in this process which will re-assess if pt is appropriate for a level II placement or will maintain as a Level I. JEANNIE ROMERO October 23, 2020 15:50
[2020-10-23] MEDS: hydrOXYzine HCL 25 MG TABLET PO PRN (16:57)
--- NOTE | 2020-10-23 17:46 | NUR ---
Patient has been disorganized, occasionally helpless, compliant with medications, and mildly confused throughout this shift. Patient occasionally calls out for help. Patient continues on contact isolation in her room. Will continue to monitor and report to oncoming shift.
[2020-10-23] MEDS: MELATONIN 3 MG TABLET PO SCH (20:54)
[2020-10-23] MEDS: ATORVASTATIN CALCIUM 20 MG TABLET PO SCH (20:54)
--- NOTE | 2020-10-23 21:51 | PDOC ---
Exam Note: Edgar Note: Please also refer to the separate dictated note~for this date of service dictated separately.~Patient seen individually. Discussed the patient with Nursing staff reviewed the chart.~Reviewed interim history and current functioning. Reviewed vital signs,~Labs/ Radiology~and current medications noted below. Continue current treatment with the changes noted in the dictated addendum note Assessment: Vital Signs/I&O: Vital Signs Date Time Temp Pulse Resp B/P (MAP) Pulse Ox O2 Delivery O2 Flow Rate FiO2 10/23/20 15:38 97.8 80 16 87/54 (65) 93 10/21/20 16:04 Room Air I & O 10/22/20 10/22/20 10/23/20 15:00 23:00 07:00 Intake Total 690 ml 360 ml Balance 690 ml 360 ml Labs: Laboratory Tests Test 10/23/20 07:41 10/23/20 11:57 10/23/20 16:46 10/23/20 19:10 Glucose (Fingerstick) 118 mg/dL (70-99) H 166 mg/dL (70-99) H 135 mg/dL (70-99) H 131 mg/dL (70-99) H Current Medications: Meds: Laboratory Tests Test 10/23/20 07:41 10/23/20 11:57 10/23/20 16:46 10/23/20 19:10 Glucose (Fingerstick) 118 mg/dL 166 mg/dL 135 mg/dL 131 mg/dL Current Medications Medications (Trade) Dose Ordered Sig/Alexx Route PRN Reason Start Time Stop Time Status Last Admin Dose Admin Acetaminophen (Tylenol) 650 mg PRN Q6HRS PRN PO MILD PAIN / TEMP > 100.3'F 10/14/20 20:15 Apixaban (Eliquis) 5 mg BID PO 10/14/20 21:00 10/23/20 20:54 Aspirin (Aspirin Enteric Coated) 81 mg DAILY PO 10/15/20 09:00 10/23/20 10:04 Aspirin (Aspirin Enteric Coated) 81 mg DAILY PO 10/15/20 09:00 UNV Divalproex Sodium (Depakote Sprinkles) 500 mg 0900,1300,1700 PO 10/15/20 09:00 10/22/20 17:40 DC 10/22/20 13:11 Divalproex Sodium (Depakote Sprinkles) 750 mg HS PO 10/14/20 21:00 10/23/20 20:54 Furosemide (Lasix) 20 mg DAILY PO 10/15/20 09:00 10/23/20 10:03 Gabapentin (Neurontin) 100 mg BID PO 10/14/20 21:00 10/23/20 20:54 Acetaminophen/ Hydrocodone Bitart (Lortab 5/325) 1 tab PRN Q4HRS PRN PO MODERATE PAIN, SEVERE PAIN 10/14/20 20:15 10/15/20 08:41 Hydroxyzine HCl (Atarax) 25 mg PRN TID PRN PO ITCHING 10/14/20 21:00 10/23/20 16:57 Insulin Human Lispro (HumaLOG) 1 units TIDWMEALS SQ 10/15/20 08:00 Cancel Linagliptin (Tradjenta) 5 mg DAILY PO 10/15/20 09:00 10/23/20 10:04 Al Hydroxide/Mg Hydroxide (Mylanta Plus Xs) 15 ml PRN BFRMEALHC PRN PO DYSPEPSIA 10/14/20 20:15 Melatonin (Melatonin) 3 mg HS PO 10/14/20 21:00 10/23/20 20:54 Metformin HCl (Glucophage) 750 mg BIDWMEALS PO 10/15/20 08:00 10/23/20 16:58 Metoprolol Succinate (Toprol Xl) 50 mg DAILY PO 10/15/20 09:00 10/23/20 10:06 Nystatin (Nystop) 15 rocio BID TP 10/14/20 21:00 10/23/20 21:00 Risperidone (RisperDAL) 0.5 mg BID PO 10/14/20 21:00 10/23/20 20:54 Sertraline HCl (Zoloft) 50 mg DAILY PO 10/15/20 09:00 10/23/20 10:06 Atorvastatin Calcium (Lipitor) 40 mg QHS PO 10/14/20 21:00 10/23/20 20:54 Cyanocobalamin (Vitamin B-12) 500 mcg DAILY PO 10/15/20 09:00 10/23/20 10:04 Insulin Glargine (Lantus Syringe) 35 unit DAILY SQ 10/15/20 09:00 10/21/20 16:52 DC 10/21/20 10:03 Lactobacillus Rhamnosus (Culturelle) 1 cap DAILY PO 10/15/20 09:00 10/23/20 10:04 Magnesium Hydroxide (Milk Of Magnesia) 2,400 mg PRN DAILY PRN PO CONSTIPATION 10/14/20 21:00 Multi-Ingredient Ointment (Analgesic [place]) 1 rocio PRN Q6HRS PRN TP MUSCLE PAIN 10/14/20 21:00 Multivitamins/ Calcium (Thera-M Plus) 1 tab DAILY PO 10/15/20 09:00 10/23/20 10:06 Pantoprazole Sodium (Protonix) 40 mg BIDWMEALS PO 10/15/20 08:00 10/23/20 16:57 Potassium Chloride (Klor-Con) 10 meq DAILYWBKFT PO 10/15/20 08:00 10/23/20 10:04 Vitamin D (Vitamin D3) 500 unit DAILY PO 10/15/20 09:00 10/23/20 10:06 Acetaminophen (Tylenol) 650 mg PRN Q6HRS PRN PO MILD PAIN / TEMP > 100.3'F 10/14/20 23:15 10/14/20 23:34 DC Multi-Ingredient Ointment (Analgesic [place]) 1 rocio PRN QID PRN TP MUSCLE PAIN 10/14/20 23:15 10/16/20 08:37 DC Al Hydroxide/Mg Hydroxide (Mylanta Plus Xs) 15 ml PRN AFTMEALHC PRN PO DYSPEPSIA 10/14/20 23:15 10/14/20 23:39 DC Magnesium Hydroxide (Milk Of Magnesia) 2,400 mg PRN QHS PRN PO CONSTIPATION 10/14/20 23:15 10/14/20 23:39 DC Insulin Human Lispro (HumaLOG) 0-5 UNITS TIDWMEALS SQ 10/15/20 12:00 10/23/20 12:45 Ertapenem 1 gm/ Sodium Chloride 50 ml @ 100 mls/hr DAILY IV 10/20/20 09:00 10/28/20 22:00 10/23/20 10:30 Insulin Glargine (Lantus Syringe) 20 unit DAILY SQ 10/21/20 17:00 10/23/20 10:12 Divalproex Sodium (Depakote Sprinkles) 500 mg 0900,1400 PO 10/23/20 09:00 10/23/20 12:42 Current Medications Medications (Trade) Dose Ordered Sig/Alexx Route PRN Reason Start Time Stop Time Status Last Admin Dose Admin Divalproex Sodium (Depakote Sprinkles) 500 mg 0900,1400 PO 10/23/20 09:00 10/23/20 12:42 I have reviewed the current psychotropics carefully including drug interactions. Risk benefit ratio favors no change other than as noted in my dictated progress note. Diagnosis: Problems: (1) Schizoaffective disorder, bipolar type (2) Impulse control disorder, unspecified (3) Anxiety disorder, unspecified (4) Bipolar disorder, curr episode mixed, severe, with psychotic features CHAVO WANG MD October 23, 2020 21:51
--- NOTE | 2020-10-24 01:18 | NUR ---
Nursing Note The patient was located in he room for her assessment and medication pass. The patient took her medication and was pleasant during interactions with this nurse. The patient was alert to name and the name of the hospital. The patient discussed classical music with this nurse. The patient is currently sleeping in her room.
[2020-10-24 05:41] VITALS: BP 114/74
[2020-10-24] MEDS: INSULIN LISPRO 300 UNITS/3 ML VIAL. SQ SCH ×3 (08:00→17:00)
[2020-10-24] MEDS: LACTOBACILLUS RHAMNOSUS GG 1 CAPSULE. PO SCH (09:29)
[2020-10-24] MEDS: LINAGLIPTIN 5 MG TABLET PO SCH (09:29)
[2020-10-24] MEDS: metFORMIN 500 MG TABLET PO SCH ×2 (09:29→17:49)
[2020-10-24] MEDS: MULTIVITAMIN with MINERAL TABLET. PO SCH (09:29)
[2020-10-24] MEDS: PANTOPRAZOLE 40 MG TABLET. PO SCH ×2 (09:30→17:49)
[2020-10-24] MEDS: SERTRALINE 50 MG TABLET. PO SCH (09:30)
[2020-10-24] MEDS: POTASSIUM CHLORIDE 10 MEQ TABLET.ER. PO SCH (09:30)
[2020-10-24] MEDS: GABAPENTIN 100 MG CAPSULE. PO SCH ×2 (09:30→20:42)
[2020-10-24] MEDS: NYSTATIN TOPICAL POWDER 15GM BOTTLE. TP SCH ×2 (09:30→20:43)
[2020-10-24] MEDS: METOPROLOL SUCC 24HR ER 50 MG TAB.ER.24H. PO SCH (09:31)
[2020-10-24] MEDS: DIVALPROEX 125 MG CAP.SPRINK PO SCH ×3 (09:31→20:42)
[2020-10-24] MEDS: CHOLECALCIFEROL (VITAMIN D3) 1,000 UNIT TABLET PO SCH (09:31)
[2020-10-24] MEDS: risperiDONE 0.5 MG TABLET. PO SCH ×2 (09:31→20:42)
[2020-10-24] MEDS: CYANOCOBALAMIN (VITAMIN B-12) 250 MCG TABLET. PO SCH (09:31)
[2020-10-24] MEDS: APIXABAN 5 MG TABLET. PO SCH ×2 (09:31→20:42)
[2020-10-24] MEDS: FUROSEMIDE 20 MG TABLET PO SCH (09:32)
[2020-10-24] MEDS: ERTAPENEM 1 GM in IV NORMAL SALINE 50ML 50 ML IV SCH (09:32)
[2020-10-24] MEDS: ASPIRIN ENTERIC COATED 81 MG TABLET.DR. PO SCH (09:32)
[2020-10-24] MEDS: INSULIN GLARGINE SYRINGE. SQ SCH (09:37)
--- NOTE | 2020-10-24 11:53 | NUR ---
KEITH received a call from Dana with [facility] who is wanting to complete the Level II screen requested from pt facility. KEITH gave Dana an update on pt behaviors and explained that she has ESBL in her urine, which could be cause for the behavior. Pt had the same bacteria on her first stay in June. Dana questioned if pt had the same behaviors here in which KEITH explained that pt has not been physically aggressive; however, is needy and requires a lot of help with things. Pt is in a w/c and uses a seamus for transfers as she is in a wheelchair and left BKA. Dana set up a Zoom meeting for KEITH tomorrow at 1030 so she can assess pt. KEITH will update pt brother about this scenario.
--- NOTE | 2020-10-24 11:58 | NUR ---
SW attempted to contact pt brother Jerman and was not able to leave a message; no answering service/voicemail picked up. KEITH will try back at a later time.
[2020-10-24 15:40] VITALS: BP 110/67
--- NOTE | 2020-10-24 17:00 | NUR ---
Wound/Ostomy Care Wound Type/Assessment: Patient seen per wound care consult. See wound assessment. Patient has stage II PU to left buttock. Wound cleansed and assessed. Patient is extremely incontinent and saturated at this time of assessment. This patient's RN with me for assessment. Patient brief and chux changed at this time. Treatment Recommendations/Plan: Recommendations for calazime cream to be applied BID PRN and with every brief change. Patient to be turned every 2 hours as well. A&D ointment applied at this time. Education provided: Patient educated on turning and PU treatment and managment, but will need reinforcement due to mental status. Offloading surface/device: Patient to turn every 2 hours and for purple wedge to be used when turning. Recommended Referrals/Tests: N/A Discharge Recommendations for dressings: Dressing change instructions left at nursing station and placed in chart. Spoke with RN regarding POC. Wound care will follow up in one week for reassessment.
[2020-10-24] MEDS: HYDROcodone/APAP 5/325MG 1 TAB TABLET PO PRN (17:49)
--- NOTE | 2020-10-24 18:30 | NUR ---
Patient has been disorganized, occasionally helpless, compliant with medications, and mildly confused throughout this shift. Patient occasionally calls out for help. Patient continues on contact isolation in her room. She was resistive when wound care came to evaluate her and changed her brief with staff members. She complained of neck pain at dinner time, prn medication provided per eMAR. Will continue to monitor and report to oncoming shift.
[2020-10-24] MEDS: MELATONIN 3 MG TABLET PO SCH (20:42)
[2020-10-24] MEDS: ATORVASTATIN CALCIUM 20 MG TABLET PO SCH (20:42)
[2020-10-24] MEDS: MAGNESIUM HYDROXIDE 2,400 MG/30 ML ORAL.SUSP. PO PRN (21:36)
--- NOTE | 2020-10-24 21:41 | PDOC ---
Exam Note: Edgar Note: Please also refer to the separate dictated note~for this date of service dictated separately.~Patient seen individually. Discussed the patient with Nursing staff reviewed the chart.~Reviewed interim history and current functioning. Reviewed vital signs,~Labs/ Radiology~and current medications noted below. Continue current treatment with the changes noted in the dictated addendum note Assessment: Vital Signs/I&O: Vital Signs Date Time Temp Pulse Resp B/P (MAP) Pulse Ox O2 Delivery O2 Flow Rate FiO2 10/24/20 18:20 16 96 Room Air 10/24/20 15:40 96.9 75 110/67 (81) I & O 10/23/20 10/23/20 10/24/20 15:00 23:00 07:00 Intake Total 720 ml 120 ml Balance 720 ml 120 ml Labs: Laboratory Tests Test 10/24/20 07:23 10/24/20 11:48 10/24/20 17:10 10/24/20 19:03 Glucose (Fingerstick) 78 mg/dL (70-99) 119 mg/dL (70-99) H 80 mg/dL (70-99) 110 mg/dL (70-99) H Current Medications: Meds: Laboratory Tests Test 10/24/20 07:23 10/24/20 11:48 10/24/20 17:10 10/24/20 19:03 Glucose (Fingerstick) 78 mg/dL 119 mg/dL 80 mg/dL 110 mg/dL Current Medications Medications (Trade) Dose Ordered Sig/Alexx Route PRN Reason Start Time Stop Time Status Last Admin Dose Admin Acetaminophen (Tylenol) 650 mg PRN Q6HRS PRN PO MILD PAIN / TEMP > 100.3'F 10/14/20 20:15 Apixaban (Eliquis) 5 mg BID PO 10/14/20 21:00 10/24/20 20:42 Aspirin (Aspirin Enteric Coated) 81 mg DAILY PO 10/15/20 09:00 10/24/20 09:32 Aspirin (Aspirin Enteric Coated) 81 mg DAILY PO 10/15/20 09:00 UNV Divalproex Sodium (Depakote Sprinkles) 500 mg 0900,1300,1700 PO 10/15/20 09:00 10/22/20 17:40 DC 10/22/20 13:11 Divalproex Sodium (Depakote Sprinkles) 750 mg HS PO 10/14/20 21:00 10/24/20 20:42 Furosemide (Lasix) 20 mg DAILY PO 10/15/20 09:00 10/24/20 09:32 Gabapentin (Neurontin) 100 mg BID PO 10/14/20 21:00 10/24/20 20:42 Acetaminophen/ Hydrocodone Bitart (Lortab 5/325) 1 tab PRN Q4HRS PRN PO MODERATE PAIN, SEVERE PAIN 10/14/20 20:15 10/24/20 17:49 Hydroxyzine HCl (Atarax) 25 mg PRN TID PRN PO ITCHING 10/14/20 21:00 10/23/20 16:57 Insulin Human Lispro (HumaLOG) 1 units TIDWMEALS SQ 10/15/20 08:00 Cancel Linagliptin (Tradjenta) 5 mg DAILY PO 10/15/20 09:00 10/24/20 09:29 Al Hydroxide/Mg Hydroxide (Mylanta Plus Xs) 15 ml PRN BFRMEALHC PRN PO DYSPEPSIA 10/14/20 20:15 Melatonin (Melatonin) 3 mg HS PO 10/14/20 21:00 10/24/20 20:42 Metformin HCl (Glucophage) 750 mg BIDWMEALS PO 10/15/20 08:00 10/24/20 17:49 Metoprolol Succinate (Toprol Xl) 50 mg DAILY PO 10/15/20 09:00 10/24/20 09:31 Nystatin (Nystop) 15 rocio BID TP 10/14/20 21:00 10/24/20 19:29 DC 10/24/20 09:30 Risperidone (RisperDAL) 0.5 mg BID PO 10/14/20 21:00 10/24/20 20:42 Sertraline HCl (Zoloft) 50 mg DAILY PO 10/15/20 09:00 10/24/20 09:30 Atorvastatin Calcium (Lipitor) 40 mg QHS PO 10/14/20 21:00 10/24/20 20:42 Cyanocobalamin (Vitamin B-12) 500 mcg DAILY PO 10/15/20 09:00 10/24/20 09:31 Insulin Glargine (Lantus Syringe) 35 unit DAILY SQ 10/15/20 09:00 10/21/20 16:52 DC 10/21/20 10:03 Lactobacillus Rhamnosus (Culturelle) 1 cap DAILY PO 10/15/20 09:00 10/24/20 09:29 Magnesium Hydroxide (Milk Of Magnesia) 2,400 mg PRN DAILY PRN PO CONSTIPATION 10/14/20 21:00 10/24/20 21:36 Multi-Ingredient Ointment (Analgesic [place]) 1 rocio PRN Q6HRS PRN TP MUSCLE PAIN 10/14/20 21:00 Multivitamins/ Calcium (Thera-M Plus) 1 tab DAILY PO 10/15/20 09:00 10/24/20 09:29 Pantoprazole Sodium (Protonix) 40 mg BIDWMEALS PO 10/15/20 08:00 10/24/20 17:49 Potassium Chloride (Klor-Con) 10 meq DAILYWBKFT PO 10/15/20 08:00 10/24/20 09:30 Vitamin D (Vitamin D3) 500 unit DAILY PO 10/15/20 09:00 10/24/20 09:31 Acetaminophen (Tylenol) 650 mg PRN Q6HRS PRN PO MILD PAIN / TEMP > 100.3'F 10/14/20 23:15 10/14/20 23:34 DC Multi-Ingredient Ointment (Analgesic [place]) 1 rocio PRN QID PRN TP MUSCLE PAIN 10/14/20 23:15 10/16/20 08:37 DC Al Hydroxide/Mg Hydroxide (Mylanta Plus Xs) 15 ml PRN AFTMEALHC PRN PO DYSPEPSIA 10/14/20 23:15 10/14/20 23:39 DC Magnesium Hydroxide (Milk Of Magnesia) 2,400 mg PRN QHS PRN PO CONSTIPATION 10/14/20 23:15 10/14/20 23:39 DC Insulin Human Lispro (HumaLOG) 0-5 UNITS TIDWMEALS SQ 10/15/20 12:00 10/23/20 12:45 Ertapenem 1 gm/ Sodium Chloride 50 ml @ 100 mls/hr DAILY IV 10/20/20 09:00 10/28/20 22:00 10/24/20 09:32 Insulin Glargine (Lantus Syringe) 20 unit DAILY SQ 10/21/20 17:00 10/24/20 09:37 Divalproex Sodium (Depakote Sprinkles) 500 mg 0900,1400 PO 10/23/20 09:00 10/24/20 14:09 Nystatin (Nystop) 1 rocio BID TP 10/24/20 21:00 10/24/20 20:43 Current Medications Medications (Trade) Dose Ordered Sig/Alexx Route PRN Reason Start Time Stop Time Status Last Admin Dose Admin Nystatin (Nystop) 1 rocio BID TP 10/24/20 21:00 10/24/20 20:43 I have reviewed the current psychotropics carefully including drug interactions. Risk benefit ratio favors no change other than as noted in my dictated progress note. Diagnosis: Problems: (1) Schizoaffective disorder, bipolar type (2) Impulse control disorder, unspecified (3) Anxiety disorder, unspecified (4) Bipolar disorder, curr episode mixed, severe, with psychotic features CHAVO WANG MD October 24, 2020 21:41
--- NOTE | 2020-10-25 04:51 | NUR ---
Nursing Note The patient was located in her room for her assessment and medication pass. The patient took her medication whole. The patient was alert to name and location. The patient reports her last BM was 4 days ago. EMR reflects this information. The patient was given Milk of Magnesia per PRN order. The patient is currently sleeping in her room.
[2020-10-25 05:27] VITALS: BP 153/89
[2020-10-25] MEDS: INSULIN LISPRO 300 UNITS/3 ML VIAL. SQ SCH ×3 (08:00→17:00)
--- NOTE | 2020-10-25 08:16 | PDOC ---
Exam Note: Edgar Note: This note is a late entry for 10/23/2020 covers elements not covered in my initial note. Subjective: The patient was reviewed in the morning of 10/23/2020 for a treatment team meeting with Sadaf Aguilar, Iraida Wills and Mari (addiction social worker), Cheri, activity therapy and Mahesh MELGAR, discussed and reviewed the chart. She slept 7 hours previous night. Appetite is 50%. She has been anxious, restless, repeatedly calling out for help. She is on contact precautions due to her ESBL UTI and is on Invanz per Dr. Reddy for her antibiotic. She has been screened for level 2. I met with her in her room at length in the evening. 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 Review of Systems: Ambulation impaired in wheelchair. No CV, , pulmonary, eye system symptoms on review. Mental Status Exam: The patient is reasonably oriented to herself. Speech is coherent, little pressured at times. Abstraction is fair. Computation impaired. Language function intact. Attention span short. Mood and affect remains somewhat anxious, labile. Laboratory Data: Reviewed. Impression: Schizoaffective disorder bipolar type. Impulse control disorder unspecified. Anxiety disorder unspecified. ESBL UTI. Plan: Treat the UTI. Valproic acid level is therapeutic at 58. Continue rest of the psychotropics. Once the UTI resolves, if mood lability persists, we will adjust her psychotropics further perhaps increasing the Risperdal currently 0.5 mg b.i.d. Assessment: Vital Signs/I&O: Vital Signs Date Time Temp Pulse Resp B/P (MAP) Pulse Ox O2 Delivery O2 Flow Rate FiO2 10/25/20 05:27 97.3 66 20 153/89 (110) 94 Room Air I & O 10/24/20 10/24/20 10/25/20 15:00 23:00 07:00 Intake Total 420 ml 480 ml Balance 420 ml 480 ml Labs: Laboratory Tests Test 10/24/20 11:48 10/24/20 17:10 10/24/20 19:03 10/25/20 08:08 Glucose (Fingerstick) 119 mg/dL (70-99) H 80 mg/dL (70-99) 110 mg/dL (70-99) H 102 mg/dL (70-99) H Current Medications: Meds: Laboratory Tests Test 10/24/20 11:48 10/24/20 17:10 10/24/20 19:03 10/25/20 08:08 Glucose (Fingerstick) 119 mg/dL 80 mg/dL 110 mg/dL 102 mg/dL Current Medications Medications (Trade) Dose Ordered Sig/Alexx Route PRN Reason Start Time Stop Time Status Last Admin Dose Admin Acetaminophen (Tylenol) 650 mg PRN Q6HRS PRN PO MILD PAIN / TEMP > 100.3'F 10/14/20 20:15 Apixaban (Eliquis) 5 mg BID PO 10/14/20 21:00 10/24/20 20:42 Aspirin (Aspirin Enteric Coated) 81 mg DAILY PO 10/15/20 09:00 10/24/20 09:32 Aspirin (Aspirin Enteric Coated) 81 mg DAILY PO 10/15/20 09:00 UNV Divalproex Sodium (Depakote Sprinkles) 500 mg 0900,1300,1700 PO 10/15/20 09:00 10/22/20 17:40 DC 10/22/20 13:11 Divalproex Sodium (Depakote Sprinkles) 750 mg HS PO 10/14/20 21:00 10/24/20 20:42 Furosemide (Lasix) 20 mg DAILY PO 10/15/20 09:00 10/24/20 09:32 Gabapentin (Neurontin) 100 mg BID PO 10/14/20 21:00 10/24/20 20:42 Acetaminophen/ Hydrocodone Bitart (Lortab 5/325) 1 tab PRN Q4HRS PRN PO MODERATE PAIN, SEVERE PAIN 10/14/20 20:15 10/24/20 17:49 Hydroxyzine HCl (Atarax) 25 mg PRN TID PRN PO ITCHING 10/14/20 21:00 10/23/20 16:57 Insulin Human Lispro (HumaLOG) 1 units TIDWMEALS SQ 10/15/20 08:00 Cancel Linagliptin (Tradjenta) 5 mg DAILY PO 10/15/20 09:00 10/24/20 09:29 Al Hydroxide/Mg Hydroxide (Mylanta Plus Xs) 15 ml PRN BFRMEALHC PRN PO DYSPEPSIA 10/14/20 20:15 Melatonin (Melatonin) 3 mg HS PO 10/14/20 21:00 10/24/20 20:42 Metformin HCl (Glucophage) 750 mg BIDWMEALS PO 10/15/20 08:00 10/24/20 17:49 Metoprolol Succinate (Toprol Xl) 50 mg DAILY PO 10/15/20 09:00 10/24/20 09:31 Nystatin (Nystop) 15 rocio BID TP 10/14/20 21:00 10/24/20 19:29 DC 10/24/20 09:30 Risperidone (RisperDAL) 0.5 mg BID PO 10/14/20 21:00 10/24/20 20:42 Sertraline HCl (Zoloft) 50 mg DAILY PO 10/15/20 09:00 10/24/20 09:30 Atorvastatin Calcium (Lipitor) 40 mg QHS PO 10/14/20 21:00 10/24/20 20:42 Cyanocobalamin (Vitamin B-12) 500 mcg DAILY PO 10/15/20 09:00 10/24/20 09:31 Insulin Glargine (Lantus Syringe) 35 unit DAILY SQ 10/15/20 09:00 10/21/20 16:52 DC 10/21/20 10:03 Lactobacillus Rhamnosus (Culturelle) 1 cap DAILY PO 10/15/20 09:00 10/24/20 09:29 Magnesium Hydroxide (Milk Of Magnesia) 2,400 mg PRN DAILY PRN PO CONSTIPATION 10/14/20 21:00 10/24/20 21:36 Multi-Ingredient Ointment (Analgesic [place]) 1 rocio PRN Q6HRS PRN TP MUSCLE PAIN 10/14/20 21:00 Multivitamins/ Calcium (Thera-M Plus) 1 tab DAILY PO 10/15/20 09:00 10/24/20 09:29 Pantoprazole Sodium (Protonix) 40 mg BIDWMEALS PO 10/15/20 08:00 10/24/20 17:49 Potassium Chloride (Klor-Con) 10 meq DAILYWBKFT PO 10/15/20 08:00 10/24/20 09:30 Vitamin D (Vitamin D3) 500 unit DAILY PO 10/15/20 09:00 10/24/20 09:31 Acetaminophen (Tylenol) 650 mg PRN Q6HRS PRN PO MILD PAIN / TEMP > 100.3'F 10/14/20 23:15 10/14/20 23:34 DC Multi-Ingredient Ointment (Analgesic [place]) 1 rocio PRN QID PRN TP MUSCLE PAIN 10/14/20 23:15 10/16/20 08:37 DC Al Hydroxide/Mg Hydroxide (Mylanta Plus Xs) 15 ml PRN AFTMEALHC PRN PO DYSPEPSIA 10/14/20 23:15 10/14/20 23:39 DC Magnesium Hydroxide (Milk Of Magnesia) 2,400 mg PRN QHS PRN PO CONSTIPATION 10/14/20 23:15 10/14/20 23:39 DC Insulin Human Lispro (HumaLOG) 0-5 UNITS TIDWMEALS SQ 10/15/20 12:00 10/23/20 12:45 Ertapenem 1 gm/ Sodium Chloride 50 ml @ 100 mls/hr DAILY IV 10/20/20 09:00 10/28/20 22:00 10/24/20 09:32 Insulin Glargine (Lantus Syringe) 20 unit DAILY SQ 10/21/20 17:00 10/24/20 09:37 Divalproex Sodium (Depakote Sprinkles) 500 mg 0900,1400 PO 10/23/20 09:00 10/24/20 14:09 Nystatin (Nystop) 1 rocio BID TP 10/24/20 21:00 10/24/20 20:43 Current Medications Medications (Trade) Dose Ordered Sig/Alexx Route PRN Reason Start Time Stop Time Status Last Admin Dose Admin Nystatin (Nystop) 1 rocio BID TP 10/24/20 21:00 10/24/20 20:43 I have reviewed the current psychotropics carefully including drug interactions. Risk benefit ratio favors no change other than as noted in my dictated progress note. Diagnosis: Problems: (1) UTI due to extended-spectrum beta lactamase (ESBL) producing Escherichia coli (2) Schizoaffective disorder, bipolar type (3) Impulse control disorder, unspecified (4) Anxiety disorder, unspecified (5) Bipolar disorder, curr episode mixed, severe, with psychotic features CHAVO WANG MD October 25, 2020 08:16
--- NOTE | 2020-10-25 08:45 | PDOC ---
Exam Note: Edgar Note: This note is a late entry for 10/23/2020 covers elements not covered in my initial note. Subjective: The patient was seen individually in the evening of 10/24/2020 with Mahesh MELGAR, discussed and reviewed the chart. She slept 8 hours previous night. She has been pleasant. I met with her in her room. She remains on contact precautions due to ESBL UTI. She has involved herself with word searches, spending much time in bed. Nursing staff will give her a alana to try and keep her mind occupied. She had many questions of me about reasons prompting her admission. I addressed with her. Review of Systems: Ambulation impaired in wheelchair with Hoyerlift. She complains of leg pain. No CV, , pulmonary, eye system symptoms on review. Mental Status Exam: The patient is reasonably oriented to herself. Speech is coherent, little pressured at times. Abstraction is fair. Computation impaired. Language function intact. Attention span short. Mood and affect remains somewhat anxious, labile. Laboratory Data: Reviewed. Impression: Schizoaffective disorder bipolar type. Impulse control disorder unspecified. Anxiety disorder unspecified. ESBL UTI. Plan: Continue rest of the psychotropics unchanged. Assessment: Vital Signs/I&O: Vital Signs Date Time Temp Pulse Resp B/P (MAP) Pulse Ox O2 Delivery O2 Flow Rate FiO2 10/25/20 05:27 97.3 66 20 153/89 (110) 94 Room Air I & O 10/24/20 10/24/20 10/25/20 14:59 22:59 06:59 Intake Total 420 ml 480 ml Balance 420 ml 480 ml Labs: Laboratory Tests Test 10/24/20 11:48 10/24/20 17:10 10/24/20 19:03 10/25/20 08:08 Glucose (Fingerstick) 119 mg/dL (70-99) H 80 mg/dL (70-99) 110 mg/dL (70-99) H 102 mg/dL (70-99) H Current Medications: Meds: Laboratory Tests Test 10/24/20 11:48 10/24/20 17:10 10/24/20 19:03 10/25/20 08:08 Glucose (Fingerstick) 119 mg/dL 80 mg/dL 110 mg/dL 102 mg/dL Current Medications Medications (Trade) Dose Ordered Sig/Alexx Route PRN Reason Start Time Stop Time Status Last Admin Dose Admin Acetaminophen (Tylenol) 650 mg PRN Q6HRS PRN PO MILD PAIN / TEMP > 100.3'F 10/14/20 20:15 Apixaban (Eliquis) 5 mg BID PO 10/14/20 21:00 10/24/20 20:42 Aspirin (Aspirin Enteric Coated) 81 mg DAILY PO 10/15/20 09:00 10/24/20 09:32 Aspirin (Aspirin Enteric Coated) 81 mg DAILY PO 10/15/20 09:00 UNV Divalproex Sodium (Depakote Sprinkles) 500 mg 0900,1300,1700 PO 10/15/20 09:00 10/22/20 17:40 DC 10/22/20 13:11 Divalproex Sodium (Depakote Sprinkles) 750 mg HS PO 10/14/20 21:00 10/24/20 20:42 Furosemide (Lasix) 20 mg DAILY PO 10/15/20 09:00 10/24/20 09:32 Gabapentin (Neurontin) 100 mg BID PO 10/14/20 21:00 10/24/20 20:42 Acetaminophen/ Hydrocodone Bitart (Lortab 5/325) 1 tab PRN Q4HRS PRN PO MODERATE PAIN, SEVERE PAIN 10/14/20 20:15 10/24/20 17:49 Hydroxyzine HCl (Atarax) 25 mg PRN TID PRN PO ITCHING 10/14/20 21:00 10/23/20 16:57 Insulin Human Lispro (HumaLOG) 1 units TIDWMEALS SQ 10/15/20 08:00 Cancel Linagliptin (Tradjenta) 5 mg DAILY PO 10/15/20 09:00 10/24/20 09:29 Al Hydroxide/Mg Hydroxide (Mylanta Plus Xs) 15 ml PRN BFRMEALHC PRN PO DYSPEPSIA 10/14/20 20:15 Melatonin (Melatonin) 3 mg HS PO 10/14/20 21:00 10/24/20 20:42 Metformin HCl (Glucophage) 750 mg BIDWMEALS PO 10/15/20 08:00 10/24/20 17:49 Metoprolol Succinate (Toprol Xl) 50 mg DAILY PO 10/15/20 09:00 10/24/20 09:31 Nystatin (Nystop) 15 rocio BID TP 10/14/20 21:00 10/24/20 19:29 DC 10/24/20 09:30 Risperidone (RisperDAL) 0.5 mg BID PO 10/14/20 21:00 10/24/20 20:42 Sertraline HCl (Zoloft) 50 mg DAILY PO 10/15/20 09:00 10/24/20 09:30 Atorvastatin Calcium (Lipitor) 40 mg QHS PO 10/14/20 21:00 10/24/20 20:42 Cyanocobalamin (Vitamin B-12) 500 mcg DAILY PO 10/15/20 09:00 10/24/20 09:31 Insulin Glargine (Lantus Syringe) 35 unit DAILY SQ 10/15/20 09:00 10/21/20 16:52 DC 10/21/20 10:03 Lactobacillus Rhamnosus (Culturelle) 1 cap DAILY PO 10/15/20 09:00 10/24/20 09:29 Magnesium Hydroxide (Milk Of Magnesia) 2,400 mg PRN DAILY PRN PO CONSTIPATION 10/14/20 21:00 10/24/20 21:36 Multi-Ingredient Ointment (Analgesic [place]) 1 rocio PRN Q6HRS PRN TP MUSCLE PAIN 10/14/20 21:00 Multivitamins/ Calcium (Thera-M Plus) 1 tab DAILY PO 10/15/20 09:00 10/24/20 09:29 Pantoprazole Sodium (Protonix) 40 mg BIDWMEALS PO 10/15/20 08:00 10/24/20 17:49 Potassium Chloride (Klor-Con) 10 meq DAILYWBKFT PO 10/15/20 08:00 10/24/20 09:30 Vitamin D (Vitamin D3) 500 unit DAILY PO 10/15/20 09:00 10/24/20 09:31 Acetaminophen (Tylenol) 650 mg PRN Q6HRS PRN PO MILD PAIN / TEMP > 100.3'F 10/14/20 23:15 10/14/20 23:34 DC Multi-Ingredient Ointment (Analgesic [place]) 1 rocio PRN QID PRN TP MUSCLE PAIN 10/14/20 23:15 10/16/20 08:37 DC Al Hydroxide/Mg Hydroxide (Mylanta Plus Xs) 15 ml PRN AFTMEALHC PRN PO DYSPEPSIA 10/14/20 23:15 10/14/20 23:39 DC Magnesium Hydroxide (Milk Of Magnesia) 2,400 mg PRN QHS PRN PO CONSTIPATION 10/14/20 23:15 10/14/20 23:39 DC Insulin Human Lispro (HumaLOG) 0-5 UNITS TIDWMEALS SQ 10/15/20 12:00 10/23/20 12:45 Ertapenem 1 gm/ Sodium Chloride 50 ml @ 100 mls/hr DAILY IV 10/20/20 09:00 10/28/20 22:00 10/24/20 09:32 Insulin Glargine (Lantus Syringe) 20 unit DAILY SQ 10/21/20 17:00 10/24/20 09:37 Divalproex Sodium (Depakote Sprinkles) 500 mg 0900,1400 PO 10/23/20 09:00 10/24/20 14:09 Nystatin (Nystop) 1 rocio BID TP 10/24/20 21:00 10/24/20 20:43 Current Medications Medications (Trade) Dose Ordered Sig/Alexx Route PRN Reason Start Time Stop Time Status Last Admin Dose Admin Nystatin (Nystop) 1 rocio BID TP 10/24/20 21:00 10/24/20 20:43 I have reviewed the current psychotropics carefully including drug interactions. Risk benefit ratio favors no change other than as noted in my dictated progress note. Diagnosis: Problems: (1) Schizoaffective disorder, bipolar type (2) Impulse control disorder, unspecified (3) Anxiety disorder, unspecified (4) Bipolar disorder, curr episode mixed, severe, with psychotic features (5) UTI due to extended-spectrum beta lactamase (ESBL) producing Escherichia coli CHAVO WANG MD October 25, 2020 08:44
[2020-10-25] MEDS: metFORMIN 500 MG TABLET PO SCH ×2 (09:25→17:47)
[2020-10-25] MEDS: MULTIVITAMIN with MINERAL TABLET. PO SCH (09:25)
[2020-10-25] MEDS: SERTRALINE 50 MG TABLET. PO SCH (09:25)
[2020-10-25] MEDS: CYANOCOBALAMIN (VITAMIN B-12) 250 MCG TABLET. PO SCH (09:26)
[2020-10-25] MEDS: LACTOBACILLUS RHAMNOSUS GG 1 CAPSULE. PO SCH (09:26)
[2020-10-25] MEDS: METOPROLOL SUCC 24HR ER 50 MG TAB.ER.24H. PO SCH (09:26)
[2020-10-25] MEDS: DIVALPROEX 125 MG CAP.SPRINK PO SCH ×3 (09:26→20:05)
[2020-10-25] MEDS: CHOLECALCIFEROL (VITAMIN D3) 1,000 UNIT TABLET PO SCH (09:26)
[2020-10-25] MEDS: GABAPENTIN 100 MG CAPSULE. PO SCH ×2 (09:27→20:04)
[2020-10-25] MEDS: ASPIRIN ENTERIC COATED 81 MG TABLET.DR. PO SCH (09:27)
[2020-10-25] MEDS: PANTOPRAZOLE 40 MG TABLET. PO SCH ×2 (09:27→17:46)
[2020-10-25] MEDS: APIXABAN 5 MG TABLET. PO SCH ×2 (09:27→20:04)
[2020-10-25] MEDS: FUROSEMIDE 20 MG TABLET PO SCH (09:27)
[2020-10-25] MEDS: LINAGLIPTIN 5 MG TABLET PO SCH (09:27)
[2020-10-25] MEDS: POTASSIUM CHLORIDE 10 MEQ TABLET.ER. PO SCH (09:27)
[2020-10-25] MEDS: risperiDONE 0.5 MG TABLET. PO SCH ×2 (09:27→20:04)
[2020-10-25] MEDS: NYSTATIN TOPICAL POWDER 15GM BOTTLE. TP SCH ×2 (09:28→20:04)
[2020-10-25] MEDS: ERTAPENEM 1 GM in IV NORMAL SALINE 50ML 50 ML IV SCH (09:28)
[2020-10-25] MEDS: INSULIN GLARGINE SYRINGE. SQ SCH (09:32)
--- NOTE | 2020-10-25 10:45 | NUR ---
KEITH completed a Zoom meeting with the sales representative from the state re: pt Level II. Initially pt was very cooperative; however, by the end of the meet, she became irritated stating "why are you asking so many fucking questions". KEITH explained that the lady wanted to make sure she was getting what she needed at her placement. Pt closed her eyes and turned her head, which KEITH took to mean that she was done with the assessment. Based off Mary's, state workers role, she did not see a need for pt to have a Level II placement. Because pt was not able to answer her orientation questions, a mental health nursing facility is not appropriate for her at this time.
[2020-10-25 15:55] VITALS: BP 108/71
--- NOTE | 2020-10-25 18:30 | NUR ---
Patient has been disorganized, occasionally helpless, compliant with medications, and mildly confused throughout this shift. Patient occasionally calls out 'Help' or 'Hello' repeatedly, she is easily re-directed.. Patient continues on contact isolation in her room. She was resistive when wound care came to evaluate her and changed her brief with staff members. She complained of neck pain at dinner time, prn medication provided per eMAR. Will continue to monitor and report to oncoming shift.
[2020-10-25] MEDS: MAGNESIUM HYDROXIDE 2,400 MG/30 ML ORAL.SUSP. PO PRN (20:04)
[2020-10-25] MEDS: MELATONIN 3 MG TABLET PO SCH (20:05)
[2020-10-25] MEDS: ATORVASTATIN CALCIUM 20 MG TABLET PO SCH (20:05)
--- NOTE | 2020-10-25 22:05 | PDOC ---
Exam Note: Edgar Note: Please also refer to the separate dictated note~for this date of service dictated separately.~Patient seen individually. Discussed the patient with Nursing staff reviewed the chart.~Reviewed interim history and current functioning. Reviewed vital signs,~Labs/ Radiology~and current medications noted below. Continue current treatment with the changes noted in the dictated addendum note Assessment: Vital Signs/I&O: Vital Signs Date Time Temp Pulse Resp B/P (MAP) Pulse Ox O2 Delivery O2 Flow Rate FiO2 10/25/20 15:55 99.1 96 18 108/71 (83) 92 10/25/20 05:27 Room Air I & O 10/24/20 10/24/20 10/25/20 15:00 23:00 07:00 Intake Total 420 ml 480 ml Balance 420 ml 480 ml Labs: Laboratory Tests Test 10/25/20 08:08 10/25/20 12:04 10/25/20 16:44 10/25/20 19:20 Glucose (Fingerstick) 102 mg/dL (70-99) H 171 mg/dL (70-99) H 93 mg/dL (70-99) 106 mg/dL (70-99) H Current Medications: Meds: Laboratory Tests Test 10/25/20 08:08 10/25/20 12:04 10/25/20 16:44 10/25/20 19:20 Glucose (Fingerstick) 102 mg/dL 171 mg/dL 93 mg/dL 106 mg/dL Current Medications Medications (Trade) Dose Ordered Sig/Alexx Route PRN Reason Start Time Stop Time Status Last Admin Dose Admin Acetaminophen (Tylenol) 650 mg PRN Q6HRS PRN PO MILD PAIN / TEMP > 100.3'F 10/14/20 20:15 Apixaban (Eliquis) 5 mg BID PO 10/14/20 21:00 10/25/20 20:04 Aspirin (Aspirin Enteric Coated) 81 mg DAILY PO 10/15/20 09:00 10/25/20 09:27 Aspirin (Aspirin Enteric Coated) 81 mg DAILY PO 10/15/20 09:00 UNV Divalproex Sodium (Depakote Sprinkles) 500 mg 0900,1300,1700 PO 10/15/20 09:00 10/22/20 17:40 DC 10/22/20 13:11 Divalproex Sodium (Depakote Sprinkles) 750 mg HS PO 10/14/20 21:00 10/25/20 20:05 Furosemide (Lasix) 20 mg DAILY PO 10/15/20 09:00 10/25/20 09:27 Gabapentin (Neurontin) 100 mg BID PO 10/14/20 21:00 10/25/20 20:04 Acetaminophen/ Hydrocodone Bitart (Lortab 5/325) 1 tab PRN Q4HRS PRN PO MODERATE PAIN, SEVERE PAIN 10/14/20 20:15 10/24/20 17:49 Hydroxyzine HCl (Atarax) 25 mg PRN TID PRN PO ITCHING 10/14/20 21:00 10/23/20 16:57 Insulin Human Lispro (HumaLOG) 1 units TIDWMEALS SQ 10/15/20 08:00 Cancel Linagliptin (Tradjenta) 5 mg DAILY PO 10/15/20 09:00 10/25/20 09:27 Al Hydroxide/Mg Hydroxide (Mylanta Plus Xs) 15 ml PRN BFRMEALHC PRN PO DYSPEPSIA 10/14/20 20:15 Melatonin (Melatonin) 3 mg HS PO 10/14/20 21:00 10/25/20 20:05 Metformin HCl (Glucophage) 750 mg BIDWMEALS PO 10/15/20 08:00 10/25/20 17:47 Metoprolol Succinate (Toprol Xl) 50 mg DAILY PO 10/15/20 09:00 10/25/20 09:26 Nystatin (Nystop) 15 rocio BID TP 10/14/20 21:00 10/24/20 19:29 DC 10/24/20 09:30 Risperidone (RisperDAL) 0.5 mg BID PO 10/14/20 21:00 10/25/20 20:04 Sertraline HCl (Zoloft) 50 mg DAILY PO 10/15/20 09:00 10/25/20 09:25 Atorvastatin Calcium (Lipitor) 40 mg QHS PO 10/14/20 21:00 10/25/20 20:05 Cyanocobalamin (Vitamin B-12) 500 mcg DAILY PO 10/15/20 09:00 10/25/20 09:26 Insulin Glargine (Lantus Syringe) 35 unit DAILY SQ 10/15/20 09:00 10/21/20 16:52 DC 10/21/20 10:03 Lactobacillus Rhamnosus (Culturelle) 1 cap DAILY PO 10/15/20 09:00 10/25/20 09:26 Magnesium Hydroxide (Milk Of Magnesia) 2,400 mg PRN DAILY PRN PO CONSTIPATION 10/14/20 21:00 10/25/20 20:04 Multi-Ingredient Ointment (Analgesic [place]) 1 rocio PRN Q6HRS PRN TP MUSCLE PAIN 10/14/20 21:00 Multivitamins/ Calcium (Thera-M Plus) 1 tab DAILY PO 10/15/20 09:00 10/25/20 09:25 Pantoprazole Sodium (Protonix) 40 mg BIDWMEALS PO 10/15/20 08:00 10/25/20 17:46 Potassium Chloride (Klor-Con) 10 meq DAILYWBKFT PO 10/15/20 08:00 10/25/20 09:27 Vitamin D (Vitamin D3) 500 unit DAILY PO 10/15/20 09:00 10/25/20 09:26 Acetaminophen (Tylenol) 650 mg PRN Q6HRS PRN PO MILD PAIN / TEMP > 100.3'F 10/14/20 23:15 10/14/20 23:34 DC Multi-Ingredient Ointment (Analgesic [place]) 1 rocio PRN QID PRN TP MUSCLE PAIN 10/14/20 23:15 10/16/20 08:37 DC Al Hydroxide/Mg Hydroxide (Mylanta Plus Xs) 15 ml PRN AFTMEALHC PRN PO DYSPEPSIA 10/14/20 23:15 10/14/20 23:39 DC Magnesium Hydroxide (Milk Of Magnesia) 2,400 mg PRN QHS PRN PO CONSTIPATION 10/14/20 23:15 10/14/20 23:39 DC Insulin Human Lispro (HumaLOG) 0-5 UNITS TIDWMEALS SQ 10/15/20 12:00 10/25/20 12:19 Ertapenem 1 gm/ Sodium Chloride 50 ml @ 100 mls/hr DAILY IV 10/20/20 09:00 10/28/20 22:00 10/25/20 09:28 Insulin Glargine (Lantus Syringe) 20 unit DAILY SQ 5/22/21 17:00 10/25/20 09:32 Divalproex Sodium (Depakote Sprinkles) 500 mg 0900,1400 PO 10/23/20 09:00 10/25/20 13:52 Nystatin (Nystop) 1 rocio BID TP 10/24/20 21:00 10/25/20 20:04 I have reviewed the current psychotropics carefully including drug interactions. Risk benefit ratio favors no change other than as noted in my dictated progress note. Diagnosis: Problems: (1) Schizoaffective disorder, bipolar type (2) Impulse control disorder, unspecified (3) Anxiety disorder, unspecified (4) Bipolar disorder, curr episode mixed, severe, with psychotic features (5) UTI due to extended-spectrum beta lactamase (ESBL) producing Escherichia coli CHAVO WANG MD October 25, 2020 22:05
--- NOTE | 2020-10-25 23:59 | NUR ---
Patient is located in her room on assumption of care, sitting up in her chair. She is disorganized, helpless. Compliant with assessments and medications floated in applesauce. MOM given at HS for no recorded BM since 10/20. No agitation. Patient denies any pain or discomfort. She appears to be sleeping comfortably at present time. Will continue to monitor.
[2020-10-26 06:09] VITALS: BP 107/66
--- NOTE | 2020-10-26 06:46 | PDOC ---
Exam Note: Edgar Note: This note is a late entry for 10/25/2020 covers elements not covered in my initial note. Subjective: The patient was seen individually in the evening of 10/25/2020 with Mahesh MELGAR, discussed and reviewed the chart. She slept 5 hours previous night. She did reasonably well previous night but during the day today she has been repeatedly calling out for nursing staff, screaming during cares. Appetite is poor, compliant with medications. I met with her in her room. She still had her dinner tray in front of her. She remains on isolation due to ESBL UTI. Review of Systems: Ambulation impaired in wheelchair. No CV, , pulmonary, eye system symptoms on review. Mental Status Exam: The patient is reasonably oriented to herself. Speech is coherent. Abstraction is fair. Computation impaired. Language function intact. Attention span short. Mood and affect anxious, labile. Laboratory Data: Reviewed. Impression: Schizoaffective disorder bipolar type. Impulse control disorder unspecified. Anxiety disorder unspecified. ESBL UTI. Plan: Continue rest of the psychotropics unchanged. We will wait for the UTI to resolve and if agitation, mood lability, yelling persist despite this we will make further adjustments in her psychotropics including increasing Zoloft and adjusting the Risperdal. Assessment: Vital Signs/I&O: Vital Signs Date Time Temp Pulse Resp B/P (MAP) Pulse Ox O2 Delivery O2 Flow Rate FiO2 10/26/20 06:09 98.7 75 16 107/66 (80) 92 Room Air I & O 10/25/20 10/25/20 10/26/20 15:00 23:00 07:00 Intake Total 360 ml 480 ml Balance 360 ml 480 ml Labs: Laboratory Tests Test 10/25/20 08:08 10/25/20 12:04 10/25/20 16:44 10/25/20 19:20 Glucose (Fingerstick) 102 mg/dL (70-99) H 171 mg/dL (70-99) H 93 mg/dL (70-99) 106 mg/dL (70-99) H Current Medications: Meds: Laboratory Tests Test 10/25/20 08:08 10/25/20 12:04 10/25/20 16:44 10/25/20 19:20 Glucose (Fingerstick) 102 mg/dL 171 mg/dL 93 mg/dL 106 mg/dL Current Medications Medications (Trade) Dose Ordered Sig/Alexx Route PRN Reason Start Time Stop Time Status Last Admin Dose Admin Acetaminophen (Tylenol) 650 mg PRN Q6HRS PRN PO MILD PAIN / TEMP > 100.3'F 10/14/20 20:15 Apixaban (Eliquis) 5 mg BID PO 10/14/20 21:00 10/25/20 20:04 Aspirin (Aspirin Enteric Coated) 81 mg DAILY PO 10/15/20 09:00 10/25/20 09:27 Aspirin (Aspirin Enteric Coated) 81 mg DAILY PO 10/15/20 09:00 UNV Divalproex Sodium (Depakote Sprinkles) 500 mg 0900,1300,1700 PO 10/15/20 09:00 10/22/20 17:40 DC 10/22/20 13:11 Divalproex Sodium (Depakote Sprinkles) 750 mg HS PO 10/14/20 21:00 10/25/20 20:05 Furosemide (Lasix) 20 mg DAILY PO 10/15/20 09:00 10/25/20 09:27 Gabapentin (Neurontin) 100 mg BID PO 10/14/20 21:00 10/25/20 20:04 Acetaminophen/ Hydrocodone Bitart (Lortab 5/325) 1 tab PRN Q4HRS PRN PO MODERATE PAIN, SEVERE PAIN 10/14/20 20:15 10/24/20 17:49 Hydroxyzine HCl (Atarax) 25 mg PRN TID PRN PO ITCHING 10/14/20 21:00 10/23/20 16:57 Insulin Human Lispro (HumaLOG) 1 units TIDWMEALS SQ 10/15/20 08:00 Cancel Linagliptin (Tradjenta) 5 mg DAILY PO 10/15/20 09:00 10/25/20 09:27 Al Hydroxide/Mg Hydroxide (Mylanta Plus Xs) 15 ml PRN BFRMEALHC PRN PO DYSPEPSIA 10/14/20 20:15 Melatonin (Melatonin) 3 mg HS PO 10/14/20 21:00 10/25/20 20:05 Metformin HCl (Glucophage) 750 mg BIDWMEALS PO 10/15/20 08:00 10/25/20 17:47 Metoprolol Succinate (Toprol Xl) 50 mg DAILY PO 10/15/20 09:00 10/25/20 09:26 Nystatin (Nystop) 15 rocio BID TP 10/14/20 21:00 10/24/20 19:29 DC 10/24/20 09:30 Risperidone (RisperDAL) 0.5 mg BID PO 10/14/20 21:00 10/25/20 20:04 Sertraline HCl (Zoloft) 50 mg DAILY PO 10/15/20 09:00 10/25/20 09:25 Atorvastatin Calcium (Lipitor) 40 mg QHS PO 10/14/20 21:00 10/25/20 20:05 Cyanocobalamin (Vitamin B-12) 500 mcg DAILY PO 10/15/20 09:00 10/25/20 09:26 Insulin Glargine (Lantus Syringe) 35 unit DAILY SQ 10/15/20 09:00 10/21/20 16:52 DC 10/21/20 10:03 Lactobacillus Rhamnosus (Culturelle) 1 cap DAILY PO 10/15/20 09:00 10/25/20 09:26 Magnesium Hydroxide (Milk Of Magnesia) 2,400 mg PRN DAILY PRN PO CONSTIPATION 10/14/20 21:00 10/25/20 20:04 Multi-Ingredient Ointment (Analgesic Harts) 1 rocio PRN Q6HRS PRN TP MUSCLE PAIN 10/14/20 21:00 Multivitamins/ Calcium (Thera-M Plus) 1 tab DAILY PO 10/15/20 09:00 10/25/20 09:25 Pantoprazole Sodium (Protonix) 40 mg BIDWMEALS PO 10/15/20 08:00 10/25/20 17:46 Potassium Chloride (Klor-Con) 10 meq DAILYWBKFT PO 10/15/20 08:00 10/25/20 09:27 Vitamin D (Vitamin D3) 500 unit DAILY PO 10/15/20 09:00 10/25/20 09:26 Acetaminophen (Tylenol) 650 mg PRN Q6HRS PRN PO MILD PAIN / TEMP > 100.3'F 10/14/20 23:15 10/14/20 23:34 DC Multi-Ingredient Ointment (Analgesic Harts) 1 rocio PRN QID PRN TP MUSCLE PAIN 10/14/20 23:15 10/16/20 08:37 DC Al Hydroxide/Mg Hydroxide (Mylanta Plus Xs) 15 ml PRN AFTMEALHC PRN PO DYSPEPSIA 10/14/20 23:15 10/14/20 23:39 DC Magnesium Hydroxide (Milk Of Magnesia) 2,400 mg PRN QHS PRN PO CONSTIPATION 10/14/20 23:15 10/14/20 23:39 DC Insulin Human Lispro (HumaLOG) 0-5 UNITS TIDWMEALS SQ 10/15/20 12:00 10/25/20 12:19 Ertapenem 1 gm/ Sodium Chloride 50 ml @ 100 mls/hr DAILY IV 10/20/20 09:00 10/28/20 22:00 10/25/20 09:28 Insulin Glargine (Lantus Syringe) 20 unit DAILY SQ 10/21/20 17:00 10/25/20 09:32 Divalproex Sodium (Depakote Sprinkles) 500 mg 0900,1400 PO 10/23/20 09:00 10/25/20 13:52 Nystatin (Nystop) 1 rocio BID TP 10/24/20 21:00 10/25/20 20:04 I have reviewed the current psychotropics carefully including drug interactions. Risk benefit ratio favors no change other than as noted in my dictated progress note. Diagnosis: Problems: (1) Schizoaffective disorder, bipolar type (2) Impulse control disorder, unspecified (3) Anxiety disorder, unspecified (4) Bipolar disorder, curr episode mixed, severe, with psychotic features (5) UTI due to extended-spectrum beta lactamase (ESBL) producing Escherichia coli CHAVO WANG MD October 26, 2020 06:45
[2020-10-26] MEDS: INSULIN LISPRO 300 UNITS/3 ML VIAL. SQ SCH ×3 (07:36→17:00)
[2020-10-26] MEDS: NYSTATIN TOPICAL POWDER 15GM BOTTLE. TP SCH ×2 (09:00→20:40)
[2020-10-26] MEDS: INSULIN GLARGINE SYRINGE. SQ SCH (09:00)
[2020-10-26] MEDS: LACTOBACILLUS RHAMNOSUS GG 1 CAPSULE. PO SCH (10:17)
[2020-10-26] MEDS: metFORMIN 500 MG TABLET PO SCH ×2 (10:17→18:05)
[2020-10-26] MEDS: MULTIVITAMIN with MINERAL TABLET. PO SCH (10:18)
[2020-10-26] MEDS: risperiDONE 0.5 MG TABLET. PO SCH ×2 (10:18→20:40)
[2020-10-26] MEDS: APIXABAN 5 MG TABLET. PO SCH ×2 (10:18→20:39)
[2020-10-26] MEDS: GABAPENTIN 100 MG CAPSULE. PO SCH ×2 (10:18→20:40)
[2020-10-26] MEDS: POTASSIUM CHLORIDE 10 MEQ TABLET.ER. PO SCH (10:18)
[2020-10-26] MEDS: CHOLECALCIFEROL (VITAMIN D3) 1,000 UNIT TABLET PO SCH (10:18)
[2020-10-26] MEDS: LINAGLIPTIN 5 MG TABLET PO SCH (10:18)
[2020-10-26] MEDS: PANTOPRAZOLE 40 MG TABLET. PO SCH ×2 (10:18→18:04)
[2020-10-26] MEDS: FUROSEMIDE 20 MG TABLET PO SCH (10:19)
[2020-10-26] MEDS: ASPIRIN ENTERIC COATED 81 MG TABLET.DR. PO SCH (10:19)
[2020-10-26] MEDS: DIVALPROEX 125 MG CAP.SPRINK PO SCH ×3 (10:19→20:40)
[2020-10-26] MEDS: METOPROLOL SUCC 24HR ER 50 MG TAB.ER.24H. PO SCH (10:19)
[2020-10-26] MEDS: SERTRALINE 50 MG TABLET. PO SCH (10:19)
[2020-10-26] MEDS: CYANOCOBALAMIN (VITAMIN B-12) 250 MCG TABLET. PO SCH (10:19)
[2020-10-26] MEDS: ERTAPENEM 1 GM in IV NORMAL SALINE 50ML 50 ML IV SCH (10:20)
--- NOTE | 2020-10-26 11:26 | NUR ---
Please disregard Nursing Communication Intervention documentation for 10/26/20 at 0950, this was entered in error.
--- NOTE | 2020-10-26 11:51 | NUR ---
Pt is alert and forgetful. She is absent of SI/HI/VH/AH/delusions/pain at this time. Her behaviors are appropriate with others. She is compliant with medications taken whole. She remains on isolation precautions d/t ESBL and remains on IV ABT. At this time VS are WNL and she is afebrile. Plan of care continues, will pass to next shift.
[2020-10-26 15:49] VITALS: BP 111/67
[2020-10-26] MEDS: ATORVASTATIN CALCIUM 20 MG TABLET PO SCH (20:39)
[2020-10-26] MEDS: MELATONIN 3 MG TABLET PO SCH (20:40)
--- NOTE | 2020-10-26 21:58 | PDOC ---
Exam Note: Edgar Note: Please also refer to the separate dictated note~for this date of service dictated separately.~Patient seen individually. Discussed the patient with Nursing staff reviewed the chart.~Reviewed interim history and current functioning. Reviewed vital signs,~Labs/ Radiology~and current medications noted below. Continue current treatment with the changes noted in the dictated addendum note Assessment: Vital Signs/I&O: Vital Signs Date Time Temp Pulse Resp B/P (MAP) Pulse Ox O2 Delivery O2 Flow Rate FiO2 10/26/20 15:49 98.5 78 18 111/67 (82) 93 10/26/20 06:09 Room Air I & O 10/25/20 10/25/20 10/26/20 15:00 23:00 07:00 Intake Total 360 ml 480 ml Balance 360 ml 480 ml Labs: Laboratory Tests Test 10/26/20 07:23 10/26/20 11:58 10/26/20 16:39 10/26/20 19:17 Glucose (Fingerstick) 86 mg/dL (70-99) 154 mg/dL (70-99) H 98 mg/dL (70-99) 141 mg/dL (70-99) H Current Medications: Meds: Laboratory Tests Test 10/26/20 07:23 10/26/20 11:58 10/26/20 16:39 10/26/20 19:17 Glucose (Fingerstick) 86 mg/dL 154 mg/dL 98 mg/dL 141 mg/dL Current Medications Medications (Trade) Dose Ordered Sig/Alexx Route PRN Reason Start Time Stop Time Status Last Admin Dose Admin Acetaminophen (Tylenol) 650 mg PRN Q6HRS PRN PO MILD PAIN / TEMP > 100.3'F 10/14/20 20:15 Apixaban (Eliquis) 5 mg BID PO 10/14/20 21:00 10/26/20 20:39 Aspirin (Aspirin Enteric Coated) 81 mg DAILY PO 10/15/20 09:00 10/26/20 10:19 Aspirin (Aspirin Enteric Coated) 81 mg DAILY PO 10/15/20 09:00 UNV Divalproex Sodium (Depakote Sprinkles) 500 mg 0900,1300,1700 PO 10/15/20 09:00 10/22/20 17:40 DC 10/22/20 13:11 Divalproex Sodium (Depakote Sprinkles) 750 mg HS PO 10/14/20 21:00 10/26/20 20:40 Furosemide (Lasix) 20 mg DAILY PO 10/15/20 09:00 10/26/20 10:19 Gabapentin (Neurontin) 100 mg BID PO 10/14/20 21:00 10/26/20 20:40 Acetaminophen/ Hydrocodone Bitart (Lortab 5/325) 1 tab PRN Q4HRS PRN PO MODERATE PAIN, SEVERE PAIN 10/14/20 20:15 10/24/20 17:49 Hydroxyzine HCl (Atarax) 25 mg PRN TID PRN PO ITCHING 10/14/20 21:00 10/23/20 16:57 Insulin Human Lispro (HumaLOG) 1 units TIDWMEALS SQ 10/15/20 08:00 Cancel Linagliptin (Tradjenta) 5 mg DAILY PO 10/15/20 09:00 10/26/20 10:18 Al Hydroxide/Mg Hydroxide (Mylanta Plus Xs) 15 ml PRN BFRMEALHC PRN PO DYSPEPSIA 10/14/20 20:15 Melatonin (Melatonin) 3 mg HS PO 10/14/20 21:00 10/26/20 20:40 Metformin HCl (Glucophage) 750 mg BIDWMEALS PO 10/15/20 08:00 10/26/20 18:05 Metoprolol Succinate (Toprol Xl) 50 mg DAILY PO 10/15/20 09:00 10/26/20 10:19 Nystatin (Nystop) 15 rocio BID TP 10/14/20 21:00 10/24/20 19:29 DC 10/24/20 09:30 Risperidone (RisperDAL) 0.5 mg BID PO 10/14/20 21:00 10/26/20 20:40 Sertraline HCl (Zoloft) 50 mg DAILY PO 10/15/20 09:00 10/26/20 10:19 Atorvastatin Calcium (Lipitor) 40 mg QHS PO 10/14/20 21:00 10/26/20 20:39 Cyanocobalamin (Vitamin B-12) 500 mcg DAILY PO 10/15/20 09:00 10/26/20 10:19 Insulin Glargine (Lantus Syringe) 35 unit DAILY SQ 10/15/20 09:00 10/21/20 16:52 DC 10/21/20 10:03 Lactobacillus Rhamnosus (Culturelle) 1 cap DAILY PO 10/15/20 09:00 10/26/20 10:17 Magnesium Hydroxide (Milk Of Magnesia) 2,400 mg PRN DAILY PRN PO CONSTIPATION 10/14/20 21:00 10/25/20 20:04 Multi-Ingredient Ointment (Analgesic Crane) 1 rocio PRN Q6HRS PRN TP MUSCLE PAIN 10/14/20 21:00 Multivitamins/ Calcium (Thera-M Plus) 1 tab DAILY PO 10/15/20 09:00 10/26/20 10:18 Pantoprazole Sodium (Protonix) 40 mg BIDWMEALS PO 10/15/20 08:00 10/26/20 18:04 Potassium Chloride (Klor-Con) 10 meq DAILYWBKFT PO 10/15/20 08:00 10/26/20 10:18 Vitamin D (Vitamin D3) 500 unit DAILY PO 10/15/20 09:00 10/26/20 10:18 Acetaminophen (Tylenol) 650 mg PRN Q6HRS PRN PO MILD PAIN / TEMP > 100.3'F 10/14/20 23:15 10/14/20 23:34 DC Multi-Ingredient Ointment (Analgesic Crane) 1 rocio PRN QID PRN TP MUSCLE PAIN 10/14/20 23:15 10/16/20 08:37 DC Al Hydroxide/Mg Hydroxide (Mylanta Plus Xs) 15 ml PRN AFTMEALHC PRN PO DYSPEPSIA 10/14/20 23:15 10/14/20 23:39 DC Magnesium Hydroxide (Milk Of Magnesia) 2,400 mg PRN QHS PRN PO CONSTIPATION 10/14/20 23:15 10/14/20 23:39 DC Insulin Human Lispro (HumaLOG) 0-5 UNITS TIDWMEALS SQ 10/15/20 12:00 10/26/20 12:36 Ertapenem 1 gm/ Sodium Chloride 50 ml @ 100 mls/hr DAILY IV 10/20/20 09:00 10/28/20 22:00 10/26/20 10:20 Insulin Glargine (Lantus Syringe) 20 unit DAILY SQ 10/21/20 17:00 10/25/20 09:32 Divalproex Sodium (Depakote Sprinkles) 500 mg 0900,1400 PO 10/23/20 09:00 10/26/20 15:23 Nystatin (Nystop) 1 rocio BID TP 10/24/20 21:00 10/26/20 20:40 I have reviewed the current psychotropics carefully including drug interactions. Risk benefit ratio favors no change other than as noted in my dictated progress note. Diagnosis: Problems: (1) Schizoaffective disorder, bipolar type (2) Impulse control disorder, unspecified (3) Anxiety disorder, unspecified (4) Bipolar disorder, curr episode mixed, severe, with psychotic features (5) UTI due to extended-spectrum beta lactamase (ESBL) producing Escherichia coli CHAVO WANG MD October 26, 2020 21:58
--- NOTE | 2020-10-26 23:59 | NUR ---
Patient is located in her room on assumption of care, sitting up in her chair. She is disorganized, helpless. Compliant with assessments and medications floated in applesauce. No agitation. Patient denies any pain or discomfort. She appears to be sleeping comfortably at present time. Will continue to monitor.
[2020-10-27 06:08] VITALS: BP 112/72
[2020-10-27] MEDS: INSULIN LISPRO 300 UNITS/3 ML VIAL. SQ SCH ×3 (07:54→17:00)
[2020-10-27] MEDS: LINAGLIPTIN 5 MG TABLET PO SCH (09:00)
[2020-10-27] MEDS: NYSTATIN TOPICAL POWDER 15GM BOTTLE. TP SCH ×2 (09:00→20:48)
[2020-10-27] MEDS: risperiDONE 0.5 MG TABLET. PO SCH ×2 (09:00→20:48)
[2020-10-27] MEDS: INSULIN GLARGINE SYRINGE. SQ SCH (09:00)
[2020-10-27] MEDS: CYANOCOBALAMIN (VITAMIN B-12) 250 MCG TABLET. PO SCH (09:00)
[2020-10-27] MEDS: LACTOBACILLUS RHAMNOSUS GG 1 CAPSULE. PO SCH (09:11)
[2020-10-27] MEDS: SERTRALINE 50 MG TABLET. PO SCH (09:11)
[2020-10-27] MEDS: MULTIVITAMIN with MINERAL TABLET. PO SCH (09:11)
[2020-10-27] MEDS: FUROSEMIDE 20 MG TABLET PO SCH (09:11)
[2020-10-27] MEDS: PANTOPRAZOLE 40 MG TABLET. PO SCH ×2 (09:12→17:00)
[2020-10-27] MEDS: CHOLECALCIFEROL (VITAMIN D3) 1,000 UNIT TABLET PO SCH (09:12)
[2020-10-27] MEDS: METOPROLOL SUCC 24HR ER 50 MG TAB.ER.24H. PO SCH (09:12)
[2020-10-27] MEDS: APIXABAN 5 MG TABLET. PO SCH ×2 (09:12→20:48)
[2020-10-27] MEDS: ASPIRIN ENTERIC COATED 81 MG TABLET.DR. PO SCH (09:12)
[2020-10-27] MEDS: DIVALPROEX 125 MG CAP.SPRINK PO SCH ×3 (09:13→20:48)
[2020-10-27] MEDS: metFORMIN 500 MG TABLET PO SCH ×2 (09:14→17:00)
[2020-10-27] MEDS: GABAPENTIN 100 MG CAPSULE. PO SCH ×2 (09:14→20:48)
[2020-10-27] MEDS: POTASSIUM CHLORIDE 10 MEQ TABLET.ER. PO SCH (09:14)
[2020-10-27] MEDS: ERTAPENEM 1 GM in IV NORMAL SALINE 50ML 50 ML IV SCH (09:15)
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
--- NOTE | 2020-10-27 10:16 | PDOC ---
Exam Note: Edgar Note: This note is a late entry for 10/26/2020 covers elements not covered in my initial note. Subjective: The patient was seen individually in the evening of 10/26/2020 with Norberto MELGAR, discussed and reviewed the chart. She slept 7-1/4 hours previous night. She yells out at times for help but otherwise cooperative. We discussed her diagnoses, discharge plans. Review of Systems: Ambulation impaired in wheelchair. No CV, , pulmonary, eye system symptoms on review. Mental Status Exam: The patient is reasonably oriented to herself. I met with her in her room. She was not yelling and actually quite pleasant as I met with her. Speech is coherent. Abstraction is fair. Computation impaired. Language function intact. Attention span short. Mood and affect anxious, labile. Laboratory Data: Reviewed. Impression: Schizoaffective disorder bipolar type. Impulse control disorder unspecified. Anxiety disorder unspecified. Plan: Continue rest of the psychotropics unchanged. Assessment: Vital Signs/I&O: Vital Signs Date Time Temp Pulse Resp B/P (MAP) Pulse Ox O2 Delivery O2 Flow Rate FiO2 10/27/20 09:12 72 112/72 10/27/20 06:08 96.7 20 93 10/26/20 06:09 Room Air I & O 10/26/20 10/26/20 10/27/20 15:00 23:00 07:00 Intake Total 320 ml 550 ml Balance 320 ml 550 ml Labs: Laboratory Tests Test 10/26/20 11:58 10/26/20 16:39 10/26/20 19:17 10/27/20 07:50 Glucose (Fingerstick) 154 mg/dL (70-99) H 98 mg/dL (70-99) 141 mg/dL (70-99) H 115 mg/dL (70-99) H Current Medications: Meds: Laboratory Tests Test 10/26/20 11:58 10/26/20 16:39 10/26/20 19:17 10/27/20 07:50 Glucose (Fingerstick) 154 mg/dL 98 mg/dL 141 mg/dL 115 mg/dL Current Medications Medications (Trade) Dose Ordered Sig/Alexx Route PRN Reason Start Time Stop Time Status Last Admin Dose Admin Acetaminophen (Tylenol) 650 mg PRN Q6HRS PRN PO MILD PAIN / TEMP > 100.3'F 10/14/20 20:15 Apixaban (Eliquis) 5 mg BID PO 10/14/20 21:00 10/27/20 09:12 Aspirin (Aspirin Enteric Coated) 81 mg DAILY PO 10/15/20 09:00 10/27/20 09:12 Aspirin (Aspirin Enteric Coated) 81 mg DAILY PO 10/15/20 09:00 UNV Divalproex Sodium (Depakote Sprinkles) 500 mg 0900,1300,1700 PO 10/15/20 09:00 10/22/20 17:40 DC 10/22/20 13:11 Divalproex Sodium (Depakote Sprinkles) 750 mg HS PO 10/14/20 21:00 10/26/20 20:40 Furosemide (Lasix) 20 mg DAILY PO 10/15/20 09:00 10/27/20 09:11 Gabapentin (Neurontin) 100 mg BID PO 10/14/20 21:00 10/27/20 09:14 Acetaminophen/ Hydrocodone Bitart (Lortab 5/325) 1 tab PRN Q4HRS PRN PO MODERATE PAIN, SEVERE PAIN 10/14/20 20:15 10/24/20 17:49 Hydroxyzine HCl (Atarax) 25 mg PRN TID PRN PO ITCHING 10/14/20 21:00 10/23/20 16:57 Insulin Human Lispro (HumaLOG) 1 units TIDWMEALS SQ 10/15/20 08:00 Cancel Linagliptin (Tradjenta) 5 mg DAILY PO 10/15/20 09:00 10/27/20 09:00 Al Hydroxide/Mg Hydroxide (Mylanta Plus Xs) 15 ml PRN BFRMEALHC PRN PO DYSPEPSIA 10/14/20 20:15 Melatonin (Melatonin) 3 mg HS PO 10/14/20 21:00 10/26/20 20:40 Metformin HCl (Glucophage) 750 mg BIDWMEALS PO 10/15/20 08:00 10/27/20 09:14 Metoprolol Succinate (Toprol Xl) 50 mg DAILY PO 10/15/20 09:00 10/27/20 09:12 Nystatin (Nystop) 15 rocio BID TP 10/14/20 21:00 10/24/20 19:29 DC 10/24/20 09:30 Risperidone (RisperDAL) 0.5 mg BID PO 10/14/20 21:00 10/27/20 09:00 Sertraline HCl (Zoloft) 50 mg DAILY PO 10/15/20 09:00 10/27/20 09:11 Atorvastatin Calcium (Lipitor) 40 mg QHS PO 10/14/20 21:00 10/26/20 20:39 Cyanocobalamin (Vitamin B-12) 500 mcg DAILY PO 10/15/20 09:00 10/27/20 09:00 Insulin Glargine (Lantus Syringe) 35 unit DAILY SQ 10/15/20 09:00 10/21/20 16:52 DC 10/21/20 10:03 Lactobacillus Rhamnosus (Culturelle) 1 cap DAILY PO 10/15/20 09:00 10/27/20 09:11 Magnesium Hydroxide (Milk Of Magnesia) 2,400 mg PRN DAILY PRN PO CONSTIPATION 10/14/20 21:00 10/25/20 20:04 Multi-Ingredient Ointment (Analgesic Ransom) 1 rocio PRN Q6HRS PRN TP MUSCLE PAIN 10/14/20 21:00 Multivitamins/ Calcium (Thera-M Plus) 1 tab DAILY PO 10/15/20 09:00 10/27/20 09:11 Pantoprazole Sodium (Protonix) 40 mg BIDWMEALS PO 10/15/20 08:00 10/27/20 09:12 Potassium Chloride (Klor-Con) 10 meq DAILYWBKFT PO 10/15/20 08:00 10/27/20 09:14 Vitamin D (Vitamin D3) 500 unit DAILY PO 10/15/20 09:00 10/27/20 09:12 Acetaminophen (Tylenol) 650 mg PRN Q6HRS PRN PO MILD PAIN / TEMP > 100.3'F 10/14/20 23:15 10/14/20 23:34 DC Multi-Ingredient Ointment (Analgesic Ransom) 1 rocio PRN QID PRN TP MUSCLE PAIN 10/14/20 23:15 10/16/20 08:37 DC Al Hydroxide/Mg Hydroxide (Mylanta Plus Xs) 15 ml PRN AFTMEALHC PRN PO DYSPEPSIA 10/14/20 23:15 10/14/20 23:39 DC Magnesium Hydroxide (Milk Of Magnesia) 2,400 mg PRN QHS PRN PO CONSTIPATION 10/14/20 23:15 10/14/20 23:39 DC Insulin Human Lispro (HumaLOG) 0-5 UNITS TIDWMEALS SQ 10/15/20 12:00 10/26/20 12:36 Ertapenem 1 gm/ Sodium Chloride 50 ml @ 100 mls/hr DAILY IV 10/20/20 09:00 10/28/20 22:00 10/27/20 09:15 Insulin Glargine (Lantus Syringe) 20 unit DAILY SQ 10/21/20 17:00 10/27/20 09:00 Divalproex Sodium (Depakote Sprinkles) 500 mg 0900,1400 PO 10/23/20 09:00 10/27/20 09:13 Nystatin (Nystop) 1 rocio BID TP 10/24/20 21:00 10/27/20 09:00 I have reviewed the current psychotropics carefully including drug interactions. Risk benefit ratio favors no change other than as noted in my dictated progress note. Diagnosis: Problems: (1) Schizoaffective disorder, bipolar type (2) Impulse control disorder, unspecified (3) Anxiety disorder, unspecified (4) Bipolar disorder, curr episode mixed, severe, with psychotic features CHAVO WANG MD October 27, 2020 10:16
[2020-10-27 15:52] VITALS: BP 111/72
[2020-10-27] MEDS: hydrOXYzine HCL 25 MG TABLET PO PRN (18:36)
--- NOTE | 2020-10-27 18:37 | NUR ---
Pt calling out from her room more repeatedly and reporting increasing anxiety. PRN Hydroxyzine 25 mg PO administered at her request.
[2020-10-27] MEDS: ATORVASTATIN CALCIUM 20 MG TABLET PO SCH (20:48)
[2020-10-27] MEDS: MELATONIN 3 MG TABLET PO SCH (20:48)
--- NOTE | 2020-10-27 21:48 | PDOC ---
Exam Note: Edgar Note: Please also refer to the separate dictated note~for this date of service dictated separately.~Patient seen individually. Discussed the patient with Nursing staff reviewed the chart.~Reviewed interim history and current functioning. Reviewed vital signs,~Labs/ Radiology~and current medications noted below. Continue current treatment with the changes noted in the dictated addendum note Assessment: Vital Signs/I&O: Vital Signs Date Time Temp Pulse Resp B/P (MAP) Pulse Ox O2 Delivery O2 Flow Rate FiO2 10/27/20 15:52 98.0 71 20 111/72 (85) 95 Room Air I & O 10/26/20 10/26/20 10/27/20 15:00 23:00 07:00 Intake Total 320 ml 550 ml Balance 320 ml 550 ml Labs: Laboratory Tests Test 10/27/20 07:50 10/27/20 11:34 10/27/20 17:27 10/27/20 19:11 Glucose (Fingerstick) 115 mg/dL (70-99) H 137 mg/dL (70-99) H 81 mg/dL (70-99) 111 mg/dL (70-99) H Current Medications: Meds: Laboratory Tests Test 10/27/20 07:50 10/27/20 11:34 10/27/20 17:27 10/27/20 19:11 Glucose (Fingerstick) 115 mg/dL 137 mg/dL 81 mg/dL 111 mg/dL Current Medications Medications (Trade) Dose Ordered Sig/Alexx Route PRN Reason Start Time Stop Time Status Last Admin Dose Admin Acetaminophen (Tylenol) 650 mg PRN Q6HRS PRN PO MILD PAIN / TEMP > 100.3'F 10/14/20 20:15 Apixaban (Eliquis) 5 mg BID PO 10/14/20 21:00 10/27/20 20:48 Aspirin (Aspirin Enteric Coated) 81 mg DAILY PO 10/15/20 09:00 10/27/20 09:12 Aspirin (Aspirin Enteric Coated) 81 mg DAILY PO 10/15/20 09:00 UNV Divalproex Sodium (Depakote Sprinkles) 500 mg 0900,1300,1700 PO 10/15/20 09:00 10/22/20 17:40 DC 10/22/20 13:11 Divalproex Sodium (Depakote Sprinkles) 750 mg HS PO 10/14/20 21:00 10/27/20 20:48 Furosemide (Lasix) 20 mg DAILY PO 10/15/20 09:00 10/27/20 09:11 Gabapentin (Neurontin) 100 mg BID PO 10/14/20 21:00 10/27/20 20:48 Acetaminophen/ Hydrocodone Bitart (Lortab 5/325) 1 tab PRN Q4HRS PRN PO MODERATE PAIN, SEVERE PAIN 10/14/20 20:15 10/24/20 17:49 Hydroxyzine HCl (Atarax) 25 mg PRN TID PRN PO ITCHING 10/14/20 21:00 10/27/20 18:36 Insulin Human Lispro (HumaLOG) 1 units TIDWMEALS SQ 10/15/20 08:00 Cancel Linagliptin (Tradjenta) 5 mg DAILY PO 10/15/20 09:00 10/27/20 09:00 Al Hydroxide/Mg Hydroxide (Mylanta Plus Xs) 15 ml PRN BFRMEALHC PRN PO DYSPEPSIA 10/14/20 20:15 Melatonin (Melatonin) 3 mg HS PO 10/14/20 21:00 10/27/20 20:48 Metformin HCl (Glucophage) 750 mg BIDWMEALS PO 10/15/20 08:00 10/27/20 17:00 Metoprolol Succinate (Toprol Xl) 50 mg DAILY PO 10/15/20 09:00 10/27/20 09:12 Nystatin (Nystop) 15 rocio BID TP 10/14/20 21:00 10/24/20 19:29 DC 10/24/20 09:30 Risperidone (RisperDAL) 0.5 mg BID PO 10/14/20 21:00 10/27/20 20:48 Sertraline HCl (Zoloft) 50 mg DAILY PO 10/15/20 09:00 10/27/20 09:11 Atorvastatin Calcium (Lipitor) 40 mg QHS PO 10/14/20 21:00 10/27/20 20:48 Cyanocobalamin (Vitamin B-12) 500 mcg DAILY PO 10/15/20 09:00 10/27/20 09:00 Insulin Glargine (Lantus Syringe) 35 unit DAILY SQ 10/15/20 09:00 10/21/20 16:52 DC 10/21/20 10:03 Lactobacillus Rhamnosus (Culturelle) 1 cap DAILY PO 10/15/20 09:00 10/27/20 09:11 Magnesium Hydroxide (Milk Of Magnesia) 2,400 mg PRN DAILY PRN PO CONSTIPATION 10/14/20 21:00 10/25/20 20:04 Multi-Ingredient Ointment (Analgesic Picacho) 1 rocio PRN Q6HRS PRN TP MUSCLE PAIN 10/14/20 21:00 Multivitamins/ Calcium (Thera-M Plus) 1 tab DAILY PO 10/15/20 09:00 10/27/20 09:11 Pantoprazole Sodium (Protonix) 40 mg BIDWMEALS PO 10/15/20 08:00 10/27/20 17:00 Potassium Chloride (Klor-Con) 10 meq DAILYWBKFT PO 10/15/20 08:00 10/27/20 09:14 Vitamin D (Vitamin D3) 500 unit DAILY PO 10/15/20 09:00 10/27/20 09:12 Acetaminophen (Tylenol) 650 mg PRN Q6HRS PRN PO MILD PAIN / TEMP > 100.3'F 10/14/20 23:15 10/14/20 23:34 DC Multi-Ingredient Ointment (Analgesic [place]acho) 1 rocio PRN QID PRN TP MUSCLE PAIN 10/14/20 23:15 10/16/20 08:37 DC Al Hydroxide/Mg Hydroxide (Mylanta Plus Xs) 15 ml PRN AFTMEALHC PRN PO DYSPEPSIA 10/14/20 23:15 10/14/20 23:39 DC Magnesium Hydroxide (Milk Of Magnesia) 2,400 mg PRN QHS PRN PO CONSTIPATION 10/14/20 23:15 10/14/20 23:39 DC Insulin Human Lispro (HumaLOG) 0-5 UNITS TIDWMEALS SQ 10/15/20 12:00 10/26/20 12:36 Ertapenem 1 gm/ Sodium Chloride 50 ml @ 100 mls/hr DAILY IV 10/20/20 09:00 10/28/20 22:00 10/27/20 09:15 Insulin Glargine (Lantus Syringe) 20 unit DAILY SQ 10/21/20 17:00 10/27/20 09:00 Divalproex Sodium (Depakote Sprinkles) 500 mg 0900,1400 PO 10/23/20 09:00 10/27/20 14:00 Nystatin (Nystop) 1 rocio BID TP 10/24/20 21:00 10/27/20 20:48 I have reviewed the current psychotropics carefully including drug interactions. Risk benefit ratio favors no change other than as noted in my dictated progress note. Diagnosis: Problems: (1) Schizoaffective disorder, bipolar type (2) Impulse control disorder, unspecified (3) Anxiety disorder, unspecified (4) Bipolar disorder, curr episode mixed, severe, with psychotic features CHAVO WANG MD October 27, 2020 21:48
--- NOTE | 2020-10-27 23:09 | NUR ---
Patient is located in her room on assumption of care, sitting up in her chair. She is disorganized, helpless. Compliant with assessments and medications crushed in chocolate pudding. No agitation. Patient denies any pain or discomfort. She appears to be sleeping comfortably at present time. Will continue to monitor.
[2020-10-28 06:03] VITALS: BP 112/68
[2020-10-28] MEDS: LACTOBACILLUS RHAMNOSUS GG 1 CAPSULE. PO SCH (09:35)
[2020-10-28] MEDS: DIVALPROEX 125 MG CAP.SPRINK PO SCH ×3 (09:35→20:58)
[2020-10-28] MEDS: POTASSIUM CHLORIDE 10 MEQ TABLET.ER. PO SCH (09:35)
[2020-10-28] MEDS: LINAGLIPTIN 5 MG TABLET PO SCH (09:36)
[2020-10-28] MEDS: CHOLECALCIFEROL (VITAMIN D3) 1,000 UNIT TABLET PO SCH (09:36)
[2020-10-28] MEDS: risperiDONE 0.5 MG TABLET. PO SCH ×2 (09:36→20:58)
[2020-10-28] MEDS: metFORMIN 500 MG TABLET PO SCH ×2 (09:36→17:10)
[2020-10-28] MEDS: SERTRALINE 50 MG TABLET. PO SCH (09:36)
[2020-10-28] MEDS: APIXABAN 5 MG TABLET. PO SCH ×2 (09:36→20:58)
[2020-10-28] MEDS: METOPROLOL SUCC 24HR ER 50 MG TAB.ER.24H. PO SCH (09:36)
[2020-10-28] MEDS: ASPIRIN ENTERIC COATED 81 MG TABLET.DR. PO SCH (09:37)
[2020-10-28] MEDS: MULTIVITAMIN with MINERAL TABLET. PO SCH (09:37)
[2020-10-28] MEDS: FUROSEMIDE 20 MG TABLET PO SCH (09:37)
[2020-10-28] MEDS: CYANOCOBALAMIN (VITAMIN B-12) 250 MCG TABLET. PO SCH (09:37)
[2020-10-28] MEDS: INSULIN GLARGINE SYRINGE. SQ SCH (09:38)
[2020-10-28] MEDS: PANTOPRAZOLE 40 MG TABLET. PO SCH ×2 (09:40→17:12)
[2020-10-28] MEDS: ERTAPENEM 1 GM in IV NORMAL SALINE 50ML 50 ML IV SCH (09:40)
[2020-10-28] MEDS: INSULIN LISPRO 300 UNITS/3 ML VIAL. SQ SCH ×3 (10:25→17:09)
[2020-10-28] MEDS: GABAPENTIN 100 MG CAPSULE. PO SCH ×2 (10:25→20:58)
[2020-10-28] MEDS: NYSTATIN TOPICAL POWDER 15GM BOTTLE. TP SCH ×2 (10:26→20:58)
[2020-10-28 15:46] VITALS: BP 96/67
--- NOTE | 2020-10-28 17:49 | NUR ---
Pt is alert and oriented x 3. Pt is still in ISOLATION and has remained in her room throughout the day. Pt is in good mood and compliant with her medications. Pt did get her infusion of Invanz via IV.
[2020-10-28] MEDS: ATORVASTATIN CALCIUM 20 MG TABLET PO SCH (20:58)
[2020-10-28] MEDS: MELATONIN 3 MG TABLET PO SCH (20:58)
--- NOTE | 2020-10-28 22:13 | PDOC ---
Exam Note: Edgar Note: Please also refer to the separate dictated note~for this date of service dictated separately.~Patient seen individually. Discussed the patient with Nursing staff reviewed the chart.~Reviewed interim history and current functioning. Reviewed vital signs,~Labs/ Radiology~and current medications noted below. Continue current treatment with the changes noted in the dictated addendum note Assessment: Vital Signs/I&O: Vital Signs Date Time Temp Pulse Resp B/P (MAP) Pulse Ox O2 Delivery O2 Flow Rate FiO2 10/28/20 15:46 97.3 100 18 96/67 (77) 95 10/28/20 06:03 Room Air I & O 10/27/20 10/27/20 10/28/20 15:00 23:00 07:00 Intake Total 480 ml 360 ml Balance 480 ml 360 ml Labs: Laboratory Tests Test 10/28/20 07:59 10/28/20 12:04 10/28/20 16:51 10/28/20 19:12 Glucose (Fingerstick) 90 mg/dL (70-99) 103 mg/dL (70-99) H 144 mg/dL (70-99) H 148 mg/dL (70-99) H Current Medications: Meds: Laboratory Tests Test 10/28/20 07:59 10/28/20 12:04 10/28/20 16:51 10/28/20 19:12 Glucose (Fingerstick) 90 mg/dL 103 mg/dL 144 mg/dL 148 mg/dL Current Medications Medications (Trade) Dose Ordered Sig/Alexx Route PRN Reason Start Time Stop Time Status Last Admin Dose Admin Acetaminophen (Tylenol) 650 mg PRN Q6HRS PRN PO MILD PAIN / TEMP > 100.3'F 10/14/20 20:15 Apixaban (Eliquis) 5 mg BID PO 10/14/20 21:00 10/28/20 20:58 Aspirin (Aspirin Enteric Coated) 81 mg DAILY PO 10/15/20 09:00 10/28/20 09:37 Aspirin (Aspirin Enteric Coated) 81 mg DAILY PO 10/15/20 09:00 UNV Divalproex Sodium (Depakote Sprinkles) 500 mg 0900,1300,1700 PO 10/15/20 09:00 10/22/20 17:40 DC 10/22/20 13:11 Divalproex Sodium (Depakote Sprinkles) 750 mg HS PO 10/14/20 21:00 10/28/20 20:58 Furosemide (Lasix) 20 mg DAILY PO 10/15/20 09:00 10/28/20 09:37 Gabapentin (Neurontin) 100 mg BID PO 10/14/20 21:00 10/28/20 20:58 Acetaminophen/ Hydrocodone Bitart (Lortab 5/325) 1 tab PRN Q4HRS PRN PO MODERATE PAIN, SEVERE PAIN 10/14/20 20:15 10/24/20 17:49 Hydroxyzine HCl (Atarax) 25 mg PRN TID PRN PO ITCHING 10/14/20 21:00 10/27/20 18:36 Insulin Human Lispro (HumaLOG) 1 units TIDWMEALS SQ 10/15/20 08:00 Cancel Linagliptin (Tradjenta) 5 mg DAILY PO 10/15/20 09:00 10/28/20 09:36 Al Hydroxide/Mg Hydroxide (Mylanta Plus Xs) 15 ml PRN BFRMEALHC PRN PO DYSPEPSIA 10/14/20 20:15 Melatonin (Melatonin) 3 mg HS PO 10/14/20 21:00 10/28/20 20:58 Metformin HCl (Glucophage) 750 mg BIDWMEALS PO 10/15/20 08:00 10/28/20 17:10 Metoprolol Succinate (Toprol Xl) 50 mg DAILY PO 10/15/20 09:00 10/28/20 09:36 Nystatin (Nystop) 15 rocio BID TP 10/14/20 21:00 10/24/20 19:29 DC 10/24/20 09:30 Risperidone (RisperDAL) 0.5 mg BID PO 10/14/20 21:00 10/28/20 20:58 Sertraline HCl (Zoloft) 50 mg DAILY PO 10/15/20 09:00 10/28/20 09:36 Atorvastatin Calcium (Lipitor) 40 mg QHS PO 10/14/20 21:00 10/28/20 20:58 Cyanocobalamin (Vitamin B-12) 500 mcg DAILY PO 10/15/20 09:00 10/28/20 09:37 Insulin Glargine (Lantus Syringe) 35 unit DAILY SQ 10/15/20 09:00 10/21/20 16:52 DC 10/21/20 10:03 Lactobacillus Rhamnosus (Culturelle) 1 cap DAILY PO 10/15/20 09:00 10/28/20 09:35 Magnesium Hydroxide (Milk Of Magnesia) 2,400 mg PRN DAILY PRN PO CONSTIPATION 10/14/20 21:00 10/25/20 20:04 Multi-Ingredient Ointment (Analgesic [place]) 1 rocio PRN Q6HRS PRN TP MUSCLE PAIN 10/14/20 21:00 Multivitamins/ Calcium (Thera-M Plus) 1 tab DAILY PO 10/15/20 09:00 10/28/20 09:37 Pantoprazole Sodium (Protonix) 40 mg BIDWMEALS PO 10/15/20 08:00 10/28/20 17:12 Potassium Chloride (Klor-Con) 10 meq DAILYWBKFT PO 10/15/20 08:00 10/28/20 09:35 Vitamin D (Vitamin D3) 500 unit DAILY PO 10/15/20 09:00 10/28/20 09:36 Acetaminophen (Tylenol) 650 mg PRN Q6HRS PRN PO MILD PAIN / TEMP > 100.3'F 10/14/20 23:15 10/14/20 23:34 DC Multi-Ingredient Ointment (Analgesic [place]) 1 rocio PRN QID PRN TP MUSCLE PAIN 10/14/20 23:15 10/16/20 08:37 DC Al Hydroxide/Mg Hydroxide (Mylanta Plus Xs) 15 ml PRN AFTMEALHC PRN PO DYSPEPSIA 10/14/20 23:15 10/14/20 23:39 DC Magnesium Hydroxide (Milk Of Magnesia) 2,400 mg PRN QHS PRN PO CONSTIPATION 10/14/20 23:15 10/14/20 23:39 DC Insulin Human Lispro (HumaLOG) 0-5 UNITS TIDWMEALS SQ 10/15/20 12:00 10/26/20 12:36 Ertapenem 1 gm/ Sodium Chloride 50 ml @ 100 mls/hr DAILY IV 10/20/20 09:00 10/28/20 22:00 DC 10/28/20 09:40 Insulin Glargine (Lantus Syringe) 20 unit DAILY SQ 10/21/20 17:00 10/27/20 09:00 Divalproex Sodium (Depakote Sprinkles) 500 mg 0900,1400 PO 10/23/20 09:00 10/28/20 14:42 Nystatin (Nystop) 1 rocio BID TP 10/24/20 21:00 10/28/20 20:58 I have reviewed the current psychotropics carefully including drug interactions. Risk benefit ratio favors no change other than as noted in my dictated progress note. Diagnosis: Problems: (1) Schizoaffective disorder, bipolar type (2) Impulse control disorder, unspecified (3) Anxiety disorder, unspecified (4) Bipolar disorder, curr episode mixed, severe, with psychotic features CHAVO WANG MD October 28, 2020 22:13
--- NOTE | 2020-10-28 23:44 | NUR ---
Pt located in her room this evening sitting calmly. Compliant with crushed medications. Continues to act helpless, yells intermittently during ADLs.
[2020-10-29 05:30] VITALS: BP 94/62
[2020-10-29] MEDS: INSULIN LISPRO 300 UNITS/3 ML VIAL. SQ SCH ×3 (07:45→16:04)
--- NOTE | 2020-10-29 08:54 | PDOC ---
Exam Note: Edgar Note: This note is a late entry for 10/27/2020 covers elements not covered in my initial note. Subjective: The patient was seen individually in the evening of 10/27/2020 with Miriam MELGAR, discussed and reviewed the chart. She slept 6 hours previous night. The patient remains isolative, yelling at times, stays in her room due to ESBL UTI. Repeatedly asking for nursing staff sometimes for no reason and when questioned she states I have anxiety. I processed this with her at some length. Review of Systems: Ambulation impaired in wheelchair. No CV, , pulmonary, eye, ENT system symptoms on review. Mental Status Exam: The patient is reasonably oriented to herself. Speech is coherent. Abstraction is fair. Computation impaired. Language function intact. Attention span short. Mood and affect anxious, labile. Laboratory Data: Reviewed. Impression: Schizoaffective disorder bipolar type. Impulse control disorder unspecified. Anxiety disorder unspecified. Plan: Continue rest of the psychotropics unchanged. Assessment: Vital Signs/I&O: Vital Signs Date Time Temp Pulse Resp B/P (MAP) Pulse Ox O2 Delivery O2 Flow Rate FiO2 10/29/20 05:30 96.8 66 20 94/62 (73) 97 10/28/20 06:03 Room Air I & O 10/28/20 10/28/20 10/29/20 15:00 23:00 07:00 Intake Total 490 ml 720 ml Balance 490 ml 720 ml Labs: Laboratory Tests Test 10/28/20 12:04 10/28/20 16:51 10/28/20 19:12 10/29/20 07:43 Glucose (Fingerstick) 103 mg/dL (70-99) H 144 mg/dL (70-99) H 148 mg/dL (70-99) H 88 mg/dL (70-99) Current Medications: Meds: Laboratory Tests Test 10/28/20 12:04 10/28/20 16:51 10/28/20 19:12 10/29/20 07:43 Glucose (Fingerstick) 103 mg/dL 144 mg/dL 148 mg/dL 88 mg/dL Current Medications Medications (Trade) Dose Ordered Sig/Alexx Route PRN Reason Start Time Stop Time Status Last Admin Dose Admin Acetaminophen (Tylenol) 650 mg PRN Q6HRS PRN PO MILD PAIN / TEMP > 100.3'F 10/14/20 20:15 Apixaban (Eliquis) 5 mg BID PO 10/14/20 21:00 10/28/20 20:58 Aspirin (Aspirin Enteric Coated) 81 mg DAILY PO 10/15/20 09:00 10/28/20 09:37 Aspirin (Aspirin Enteric Coated) 81 mg DAILY PO 10/15/20 09:00 UNV Divalproex Sodium (Depakote Sprinkles) 500 mg 0900,1300,1700 PO 10/15/20 09:00 10/22/20 17:40 DC 10/22/20 13:11 Divalproex Sodium (Depakote Sprinkles) 750 mg HS PO 10/14/20 21:00 10/28/20 20:58 Furosemide (Lasix) 20 mg DAILY PO 10/15/20 09:00 10/28/20 09:37 Gabapentin (Neurontin) 100 mg BID PO 10/14/20 21:00 10/28/20 20:58 Acetaminophen/ Hydrocodone Bitart (Lortab 5/325) 1 tab PRN Q4HRS PRN PO MODERATE PAIN, SEVERE PAIN 10/14/20 20:15 10/24/20 17:49 Hydroxyzine HCl (Atarax) 25 mg PRN TID PRN PO ITCHING 10/14/20 21:00 10/27/20 18:36 Insulin Human Lispro (HumaLOG) 1 units TIDWMEALS SQ 10/15/20 08:00 Cancel Linagliptin (Tradjenta) 5 mg DAILY PO 10/15/20 09:00 10/28/20 09:36 Al Hydroxide/Mg Hydroxide (Mylanta Plus Xs) 15 ml PRN BFRMEALHC PRN PO DYSPEPSIA 10/14/20 20:15 Melatonin (Melatonin) 3 mg HS PO 10/14/20 21:00 10/28/20 20:58 Metformin HCl (Glucophage) 750 mg BIDWMEALS PO 10/15/20 08:00 10/28/20 17:10 Metoprolol Succinate (Toprol Xl) 50 mg DAILY PO 10/15/20 09:00 10/28/20 09:36 Nystatin (Nystop) 15 rocio BID TP 10/14/20 21:00 10/24/20 19:29 DC 10/24/20 09:30 Risperidone (RisperDAL) 0.5 mg BID PO 10/14/20 21:00 10/28/20 20:58 Sertraline HCl (Zoloft) 50 mg DAILY PO 10/15/20 09:00 10/28/20 09:36 Atorvastatin Calcium (Lipitor) 40 mg QHS PO 10/14/20 21:00 10/28/20 20:58 Cyanocobalamin (Vitamin B-12) 500 mcg DAILY PO 10/15/20 09:00 10/28/20 09:37 Insulin Glargine (Lantus Syringe) 35 unit DAILY SQ 10/15/20 09:00 10/21/20 16:52 DC 10/21/20 10:03 Lactobacillus Rhamnosus (Culturelle) 1 cap DAILY PO 10/15/20 09:00 10/28/20 09:35 Magnesium Hydroxide (Milk Of Magnesia) 2,400 mg PRN DAILY PRN PO CONSTIPATION 10/14/20 21:00 10/25/20 20:04 Multi-Ingredient Ointment (Analgesic [place]) 1 rocio PRN Q6HRS PRN TP MUSCLE PAIN 10/14/20 21:00 Multivitamins/ Calcium (Thera-M Plus) 1 tab DAILY PO 10/15/20 09:00 10/28/20 09:37 Pantoprazole Sodium (Protonix) 40 mg BIDWMEALS PO 10/15/20 08:00 10/28/20 17:12 Potassium Chloride (Klor-Con) 10 meq DAILYWBKFT PO 10/15/20 08:00 10/28/20 09:35 Vitamin D (Vitamin D3) 500 unit DAILY PO 10/15/20 09:00 10/28/20 09:36 Acetaminophen (Tylenol) 650 mg PRN Q6HRS PRN PO MILD PAIN / TEMP > 100.3'F 10/14/20 23:15 10/14/20 23:34 DC Multi-Ingredient Ointment (Analgesic [place]) 1 rocio PRN QID PRN TP MUSCLE PAIN 10/14/20 23:15 10/16/20 08:37 DC Al Hydroxide/Mg Hydroxide (Mylanta Plus Xs) 15 ml PRN AFTMEALHC PRN PO DYSPEPSIA 10/14/20 23:15 5/15/21 23:39 DC Magnesium Hydroxide (Milk Of Magnesia) 2,400 mg PRN QHS PRN PO CONSTIPATION 10/14/20 23:15 10/14/20 23:39 DC Insulin Human Lispro (HumaLOG) 0-5 UNITS TIDWMEALS SQ 10/15/20 12:00 10/26/20 12:36 Ertapenem 1 gm/ Sodium Chloride 50 ml @ 100 mls/hr DAILY IV 10/20/20 09:00 10/28/20 22:00 DC 10/28/20 09:40 Insulin Glargine (Lantus Syringe) 20 unit DAILY SQ 10/21/20 17:00 10/27/20 09:00 Divalproex Sodium (Depakote Sprinkles) 500 mg 0900,1400 PO 10/23/20 09:00 10/28/20 14:42 Nystatin (Nystop) 1 rocio BID TP 10/24/20 21:00 10/28/20 20:58 I have reviewed the current psychotropics carefully including drug interactions. Risk benefit ratio favors no change other than as noted in my dictated progress note. Diagnosis: Problems: (1) Schizoaffective disorder, bipolar type (2) Impulse control disorder, unspecified (3) Anxiety disorder, unspecified (4) Bipolar disorder, curr episode mixed, severe, with psychotic features (5) UTI due to extended-spectrum beta lactamase (ESBL) producing Escherichia coli CHAVO WANG MD October 29, 2020 08:54
[2020-10-29] MEDS: INSULIN GLARGINE SYRINGE. SQ SCH (09:00)
--- NOTE | 2020-10-29 09:15 | PDOC ---
Exam Note: Edgar Note: This note is a late entry for 10/28/2020 covers elements not covered in my initial note. Subjective: The patient was seen individually in the evening of 10/28/2020 with Esther MELGAR, discussed and reviewed the chart. She slept 5-1/2 hours previous night. She remains in isolation in her room, otherwise, pleasant, anxious at times, calling out for nursing staff, compliant with medications, curses with cares. Review of Systems: Ambulation impaired in wheelchair. No CV, , pulmonary, eye system symptoms on review. Mental Status Exam: The patient is reasonably oriented to herself. Speech is coherent. Abstraction is fair. Computation impaired. Language function intact. Attention span short. Mood and affect anxious, labile. Laboratory Data: Reviewed. Impression: Schizoaffective disorder bipolar type. Impulse control disorder unspecified. Anxiety disorder unspecified. Plan: Continue rest of the psychotropics unchanged. Assessment: Vital Signs/I&O: Vital Signs Date Time Temp Pulse Resp B/P (MAP) Pulse Ox O2 Delivery O2 Flow Rate FiO2 10/29/20 05:30 96.8 66 20 94/62 (73) 97 10/28/20 06:03 Room Air I & O 10/28/20 10/28/20 10/29/20 14:59 22:59 06:59 Intake Total 490 ml 720 ml Balance 490 ml 720 ml Labs: Laboratory Tests Test 10/28/20 12:04 10/28/20 16:51 10/28/20 19:12 10/29/20 07:43 Glucose (Fingerstick) 103 mg/dL (70-99) H 144 mg/dL (70-99) H 148 mg/dL (70-99) H 88 mg/dL (70-99) Current Medications: Meds: Laboratory Tests Test 10/28/20 12:04 10/28/20 16:51 10/28/20 19:12 10/29/20 07:43 Glucose (Fingerstick) 103 mg/dL 144 mg/dL 148 mg/dL 88 mg/dL Current Medications Medications (Trade) Dose Ordered Sig/Alexx Route PRN Reason Start Time Stop Time Status Last Admin Dose Admin Acetaminophen (Tylenol) 650 mg PRN Q6HRS PRN PO MILD PAIN / TEMP > 100.3'F 10/14/20 20:15 Apixaban (Eliquis) 5 mg BID PO 10/14/20 21:00 10/28/20 20:58 Aspirin (Aspirin Enteric Coated) 81 mg DAILY PO 10/15/20 09:00 10/28/20 09:37 Aspirin (Aspirin Enteric Coated) 81 mg DAILY PO 10/15/20 09:00 UNV Divalproex Sodium (Depakote Sprinkles) 500 mg 0900,1300,1700 PO 10/15/20 09:00 10/22/20 17:40 DC 10/22/20 13:11 Divalproex Sodium (Depakote Sprinkles) 750 mg HS PO 10/14/20 21:00 10/28/20 20:58 Furosemide (Lasix) 20 mg DAILY PO 10/15/20 09:00 10/28/20 09:37 Gabapentin (Neurontin) 100 mg BID PO 10/14/20 21:00 10/28/20 20:58 Acetaminophen/ Hydrocodone Bitart (Lortab 5/325) 1 tab PRN Q4HRS PRN PO MODERATE PAIN, SEVERE PAIN 10/14/20 20:15 10/24/20 17:49 Hydroxyzine HCl (Atarax) 25 mg PRN TID PRN PO ITCHING 10/14/20 21:00 10/27/20 18:36 Insulin Human Lispro (HumaLOG) 1 units TIDWMEALS SQ 10/15/20 08:00 Cancel Linagliptin (Tradjenta) 5 mg DAILY PO 10/15/20 09:00 10/28/20 09:36 Al Hydroxide/Mg Hydroxide (Mylanta Plus Xs) 15 ml PRN BFRMEALHC PRN PO DYSPEPSIA 10/14/20 20:15 Melatonin (Melatonin) 3 mg HS PO 10/14/20 21:00 10/28/20 20:58 Metformin HCl (Glucophage) 750 mg BIDWMEALS PO 10/15/20 08:00 10/28/20 17:10 Metoprolol Succinate (Toprol Xl) 50 mg DAILY PO 10/15/20 09:00 10/28/20 09:36 Nystatin (Nystop) 15 rocio BID TP 10/14/20 21:00 10/24/20 19:29 DC 10/24/20 09:30 Risperidone (RisperDAL) 0.5 mg BID PO 10/14/20 21:00 10/28/20 20:58 Sertraline HCl (Zoloft) 50 mg DAILY PO 10/15/20 09:00 10/28/20 09:36 Atorvastatin Calcium (Lipitor) 40 mg QHS PO 10/14/20 21:00 10/28/20 20:58 Cyanocobalamin (Vitamin B-12) 500 mcg DAILY PO 10/15/20 09:00 10/28/20 09:37 Insulin Glargine (Lantus Syringe) 35 unit DAILY SQ 10/15/20 09:00 10/21/20 16:52 DC 10/21/20 10:03 Lactobacillus Rhamnosus (Culturelle) 1 cap DAILY PO 10/15/20 09:00 10/28/20 09:35 Magnesium Hydroxide (Milk Of Magnesia) 2,400 mg PRN DAILY PRN PO CONSTIPATION 10/14/20 21:00 10/25/20 20:04 Multi-Ingredient Ointment (Analgesic [place]) 1 rocio PRN Q6HRS PRN TP MUSCLE PAIN 10/14/20 21:00 Multivitamins/ Calcium (Thera-M Plus) 1 tab DAILY PO 10/15/20 09:00 10/28/20 09:37 Pantoprazole Sodium (Protonix) 40 mg BIDWMEALS PO 10/15/20 08:00 10/28/20 17:12 Potassium Chloride (Klor-Con) 10 meq DAILYWBKFT PO 10/15/20 08:00 10/28/20 09:35 Vitamin D (Vitamin D3) 500 unit DAILY PO 10/15/20 09:00 10/28/20 09:36 Acetaminophen (Tylenol) 650 mg PRN Q6HRS PRN PO MILD PAIN / TEMP > 100.3'F 10/14/20 23:15 10/14/20 23:34 DC Multi-Ingredient Ointment (Analgesic [place]) 1 rocio PRN QID PRN TP MUSCLE PAIN 10/14/20 23:15 10/16/20 08:37 DC Al Hydroxide/Mg Hydroxide (Mylanta Plus Xs) 15 ml PRN AFTMEALHC PRN PO DYSPEPSIA 10/14/20 23:15 10/14/20 23:39 DC Magnesium Hydroxide (Milk Of Magnesia) 2,400 mg PRN QHS PRN PO CONSTIPATION 10/14/20 23:15 10/14/20 23:39 DC Insulin Human Lispro (HumaLOG) 0-5 UNITS TIDWMEALS SQ 10/15/20 12:00 10/26/20 12:36 Ertapenem 1 gm/ Sodium Chloride 50 ml @ 100 mls/hr DAILY IV 10/20/20 09:00 10/28/20 22:00 DC 10/28/20 09:40 Insulin Glargine (Lantus Syringe) 20 unit DAILY SQ 10/21/20 17:00 10/27/20 09:00 Divalproex Sodium (Depakote Sprinkles) 500 mg 0900,1400 PO 10/23/20 09:00 10/28/20 14:42 Nystatin (Nystop) 1 rocio BID TP 10/24/20 21:00 10/28/20 20:58 I have reviewed the current psychotropics carefully including drug interactions. Risk benefit ratio favors no change other than as noted in my dictated progress note. Diagnosis: Problems: (1) Schizoaffective disorder, bipolar type (2) Impulse control disorder, unspecified (3) Anxiety disorder, unspecified (4) Bipolar disorder, curr episode mixed, severe, with psychotic features (5) UTI due to extended-spectrum beta lactamase (ESBL) producing Escherichia coli CHAVO WANG MD October 29, 2020 09:15
[2020-10-29 09:18] VITALS: BP 104/63
[2020-10-29] MEDS: FUROSEMIDE 20 MG TABLET PO SCH (09:20)
[2020-10-29] MEDS: MULTIVITAMIN with MINERAL TABLET. PO SCH (09:20)
[2020-10-29] MEDS: CHOLECALCIFEROL (VITAMIN D3) 1,000 UNIT TABLET PO SCH (09:21)
[2020-10-29] MEDS: SERTRALINE 50 MG TABLET. PO SCH (09:21)
[2020-10-29] MEDS: risperiDONE 0.5 MG TABLET. PO SCH ×2 (09:21→20:28)
[2020-10-29] MEDS: APIXABAN 5 MG TABLET. PO SCH ×2 (09:21→20:28)
[2020-10-29] MEDS: LACTOBACILLUS RHAMNOSUS GG 1 CAPSULE. PO SCH (09:21)
[2020-10-29] MEDS: METOPROLOL SUCC 24HR ER 50 MG TAB.ER.24H. PO SCH (09:21)
[2020-10-29] MEDS: PANTOPRAZOLE 40 MG TABLET. PO SCH ×2 (09:21→16:05)
[2020-10-29] MEDS: GABAPENTIN 100 MG CAPSULE. PO SCH ×2 (09:21→20:29)
[2020-10-29] MEDS: CYANOCOBALAMIN (VITAMIN B-12) 250 MCG TABLET. PO SCH (09:21)
[2020-10-29] MEDS: LINAGLIPTIN 5 MG TABLET PO SCH (09:21)
[2020-10-29] MEDS: ASPIRIN ENTERIC COATED 81 MG TABLET.DR. PO SCH (09:21)
[2020-10-29] MEDS: POTASSIUM CHLORIDE 10 MEQ TABLET.ER. PO SCH (09:22)
[2020-10-29] MEDS: metFORMIN 500 MG TABLET PO SCH ×2 (09:22→16:05)
[2020-10-29] MEDS: NYSTATIN TOPICAL POWDER 15GM BOTTLE. TP SCH ×2 (09:23→20:29)
[2020-10-29] MEDS: DIVALPROEX 125 MG CAP.SPRINK PO SCH ×2 (09:23→13:48)
--- NOTE | 2020-10-29 09:47 | NUR ---
Pt rude and verbally aggressive today. When administered morning medications whole in pudding (which she has been capable of taking in days prior), she spit all the pills out on her tray and declared "I'm done." When pills were collected on a spoon and a second attempt was made to re-administer she began to refuse and spit the pills out. This nurse reminded pt that I have worked with her on previous days and previous admissions, and I am aware of her capabilities of taking whole medications floated in pudding. This nurse instructed pt to take her medications and to not act as if she is unable to. Further attempts to administer the medications was met with pt hysterically screaming "Help" and "fucking bitch." trade union secretary Emma Kuo entered and attempted to encourage pt to take medications....pt continued to cheek and pocket medications in her mouth and spit them out in a helpless manner. TALIA Thornton attempted to administer medications on spoon, and pt made multiple attempts to spit them out...when instructed by this nurse to swallow medications and to not spit them out she would reply "fucking bitch" and attempt to spit out medications again. Multiple administrations were made with pudding and fluids. Pt finally did swallow the medications.
[2020-10-29 15:39] VITALS: BP 105/68
--- NOTE | 2020-10-29 16:16 | NUR ---
1700 medications administered whole and floated in yogurt. Pt ate the yogurt and handed the cup back to this nurse with the pills inside. She apparently ate all the yogurt around the pills and left the pills in the cup. This nurse scooped the pills onto the spoon and put the spoon into pt's mouth. This nurse then gave a cup of water to pt and instructed her to drink the entire cup. Afterwords this nurse asked pt to open mouth, and no pills were visible in pt's mouth. This nurse commented that it appears that pt is able to take pills whole and is deciding to not take them. Pt responded by smiling and chuckling to herself.
[2020-10-29] MEDS: MELATONIN 3 MG TABLET PO SCH (20:27)
[2020-10-29] MEDS: ATORVASTATIN CALCIUM 20 MG TABLET PO SCH (20:28)
[2020-10-29] MEDS ORDERED: DIVALPROEX 125 MG CAP.SPRINK PO SCH (21:00)
--- NOTE | 2020-10-29 22:07 | PDOC ---
Exam Note: Edgar Note: Please also refer to the separate dictated note~for this date of service dictated separately.~Patient seen individually. Discussed the patient with Nursing staff reviewed the chart.~Reviewed interim history and current functioning. Reviewed vital signs,~Labs/ Radiology~and current medications noted below. Continue current treatment with the changes noted in the dictated addendum note Assessment: Vital Signs/I&O: Vital Signs Date Time Temp Pulse Resp B/P (MAP) Pulse Ox O2 Delivery O2 Flow Rate FiO2 10/29/20 15:39 97.5 78 18 105/68 (80) 97 10/28/20 06:03 Room Air I & O 10/28/20 10/28/20 10/29/20 15:00 23:00 07:00 Intake Total 490 ml 720 ml Balance 490 ml 720 ml Labs: Laboratory Tests Test 10/29/20 07:43 10/29/20 11:14 10/29/20 16:01 10/29/20 19:14 Glucose (Fingerstick) 88 mg/dL (70-99) 206 mg/dL (70-99) H 111 mg/dL (70-99) H 207 mg/dL (70-99) H Current Medications: Meds: Laboratory Tests Test 10/29/20 07:43 10/29/20 11:14 10/29/20 16:01 10/29/20 19:14 Glucose (Fingerstick) 88 mg/dL 206 mg/dL 111 mg/dL 207 mg/dL Current Medications Medications (Trade) Dose Ordered Sig/Alexx Route PRN Reason Start Time Stop Time Status Last Admin Dose Admin Acetaminophen (Tylenol) 650 mg PRN Q6HRS PRN PO MILD PAIN / TEMP > 100.3'F 10/14/20 20:15 Apixaban (Eliquis) 5 mg BID PO 10/14/20 21:00 10/29/20 20:28 Aspirin (Aspirin Enteric Coated) 81 mg DAILY PO 10/15/20 09:00 10/29/20 09:21 Aspirin (Aspirin Enteric Coated) 81 mg DAILY PO 10/15/20 09:00 UNV Divalproex Sodium (Depakote Sprinkles) 500 mg 0900,1300,1700 PO 10/15/20 09:00 10/22/20 17:40 DC 10/22/20 13:11 Divalproex Sodium (Depakote Sprinkles) 750 mg HS PO 10/14/20 21:00 10/29/20 18:37 DC 10/28/20 20:58 Furosemide (Lasix) 20 mg DAILY PO 10/15/20 09:00 10/29/20 09:20 Gabapentin (Neurontin) 100 mg BID PO 10/14/20 21:00 10/29/20 20:29 Acetaminophen/ Hydrocodone Bitart (Lortab 5/325) 1 tab PRN Q4HRS PRN PO MODERATE PAIN, SEVERE PAIN 10/14/20 20:15 10/24/20 17:49 Hydroxyzine HCl (Atarax) 25 mg PRN TID PRN PO ITCHING 10/14/20 21:00 10/27/20 18:36 Insulin Human Lispro (HumaLOG) 1 units TIDWMEALS SQ 10/15/20 08:00 Cancel Linagliptin (Tradjenta) 5 mg DAILY PO 10/15/20 09:00 10/29/20 09:21 Al Hydroxide/Mg Hydroxide (Mylanta Plus Xs) 15 ml PRN BFRMEALHC PRN PO DYSPEPSIA 10/14/20 20:15 Melatonin (Melatonin) 3 mg HS PO 10/14/20 21:00 10/29/20 20:27 Metformin HCl (Glucophage) 750 mg BIDWMEALS PO 10/15/20 08:00 10/29/20 16:05 Metoprolol Succinate (Toprol Xl) 50 mg DAILY PO 10/15/20 09:00 10/29/20 09:21 Nystatin (Nystop) 15 rocio BID TP 10/14/20 21:00 10/24/20 19:29 DC 10/24/20 09:30 Risperidone (RisperDAL) 0.5 mg BID PO 10/14/20 21:00 10/29/20 20:28 Sertraline HCl (Zoloft) 50 mg DAILY PO 10/15/20 09:00 10/29/20 09:21 Atorvastatin Calcium (Lipitor) 40 mg QHS PO 10/14/20 21:00 10/29/20 20:28 Cyanocobalamin (Vitamin B-12) 500 mcg DAILY PO 10/15/20 09:00 10/29/20 09:21 Insulin Glargine (Lantus Syringe) 35 unit DAILY SQ 10/15/20 09:00 10/21/20 16:52 DC 10/21/20 10:03 Lactobacillus Rhamnosus (Culturelle) 1 cap DAILY PO 10/15/20 09:00 10/29/20 09:21 Magnesium Hydroxide (Milk Of Magnesia) 2,400 mg PRN DAILY PRN PO CONSTIPATION 10/14/20 21:00 10/25/20 20:04 Multi-Ingredient Ointment (Analgesic [place]) 1 rocio PRN Q6HRS PRN TP MUSCLE PAIN 10/14/20 21:00 Multivitamins/ Calcium (Thera-M Plus) 1 tab DAILY PO 10/15/20 09:00 10/29/20 09:20 Pantoprazole Sodium (Protonix) 40 mg BIDWMEALS PO 10/15/20 08:00 10/29/20 16:05 Potassium Chloride (Klor-Con) 10 meq DAILYWBKFT PO 10/15/20 08:00 10/29/20 09:22 Vitamin D (Vitamin D3) 500 unit DAILY PO 10/15/20 09:00 10/29/20 09:21 Acetaminophen (Tylenol) 650 mg PRN Q6HRS PRN PO MILD PAIN / TEMP > 100.3'F 10/14/20 23:15 10/14/20 23:34 DC Multi-Ingredient Ointment (Analgesic [place]) 1 rocio PRN QID PRN TP MUSCLE PAIN 10/14/20 23:15 10/16/20 08:37 DC Al Hydroxide/Mg Hydroxide (Mylanta Plus Xs) 15 ml PRN AFTMEALHC PRN PO DYSPEPSIA 10/14/20 23:15 10/14/20 23:39 DC Magnesium Hydroxide (Milk Of Magnesia) 2,400 mg PRN QHS PRN PO CONSTIPATION 10/14/20 23:15 10/14/20 23:39 DC Insulin Human Lispro (HumaLOG) 0-5 UNITS TIDWMEALS SQ 10/15/20 12:00 10/29/20 12:00 Ertapenem 1 gm/ Sodium Chloride 50 ml @ 100 mls/hr DAILY IV 10/20/20 09:00 10/28/20 22:00 DC 10/28/20 09:40 Insulin Glargine (Lantus Syringe) 20 unit DAILY SQ 10/21/20 17:00 10/29/20 09:00 Divalproex Sodium (Depakote Sprinkles) 500 mg 0900,1400 PO 10/23/20 09:00 10/29/20 18:37 DC 10/29/20 13:48 Nystatin (Nystop) 1 rocio BID TP 10/24/20 21:00 10/29/20 20:29 Divalproex Sodium (Depakote Sprinkles) 500 mg 0900,1400 PO 10/30/20 09:00 Divalproex Sodium (Depakote Sprinkles) 750 mg HS PO 10/29/20 21:00 10/29/20 20:27 Current Medications Medications (Trade) Dose Ordered Sig/Alexx Route PRN Reason Start Time Stop Time Status Last Admin Dose Admin Divalproex Sodium (Depakote Sprinkles) 750 mg HS PO 10/29/20 21:00 10/29/20 20:27 I have reviewed the current psychotropics carefully including drug interactions. Risk benefit ratio favors no change other than as noted in my dictated progress note. Diagnosis: Problems: (1) Schizoaffective disorder, bipolar type (2) Impulse control disorder, unspecified (3) Anxiety disorder, unspecified (4) Bipolar disorder, curr episode mixed, severe, with psychotic features (5) UTI due to extended-spectrum beta lactamase (ESBL) producing Escherichia coli CHAVO WANG MD October 29, 2020 22:07
--- NOTE | 2020-10-29 22:55 | NUR ---
Pt wandering unit this evening. Pleasant and cooperative. Compliant with crushed medications. Occasionally yelling out for help. When asked why she continues to yell out, pt stated "because I'm crazy." Once taken to the shower, pt screamed and yelled out continuously until placed in bed.
[2020-10-30 06:19] VITALS: BP 93/61
--- NOTE | 2020-10-30 06:55 | PDOC ---
Exam Note: Edgar Note: This note is a late entry for 10/29/2020 covers elements not covered in my initial note. Subjective: The patient was seen individually in the evening of 10/29/2020 with Miriam MELGAR, discussed and reviewed the chart. She slept 5-3/4 hours previous night. She takes medications floated in pudding but refusing them today. Staff had to intervene quite persistently for her to take her meds, spitting them out, screaming at times, verbally abusive to nursing staff. We will go ahead and do pharmacy consult and change any of her psychotropics to liquid to help with compliance. Review of Systems: Ambulation impaired in wheelchair. No CV, , pulmonary, eye system symptoms on review. Mental Status Exam: The patient is reasonably oriented to herself. Speech is coherent. Abstraction is fair. Computation impaired. Language function intact. Attention span short. Mood and affect anxious, labile. Laboratory Data: Reviewed. Impression: Schizoaffective disorder bipolar type. Impulse control disorder unspecified. Anxiety disorder unspecified. Plan: Continue rest of the psychotropics unchanged. Assessment: Vital Signs/I&O: Vital Signs Date Time Temp Pulse Resp B/P (MAP) Pulse Ox O2 Delivery O2 Flow Rate FiO2 10/30/20 06:19 98.0 82 18 93/61 (72) 94 10/28/20 06:03 Room Air I & O 10/29/20 10/29/20 10/30/20 14:59 22:59 06:59 Intake Total 360 ml 480 ml Balance 360 ml 480 ml Labs: Laboratory Tests Test 10/29/20 07:43 10/29/20 11:14 10/29/20 16:01 10/29/20 19:14 Glucose (Fingerstick) 88 mg/dL (70-99) 206 mg/dL (70-99) H 111 mg/dL (70-99) H 207 mg/dL (70-99) H Current Medications: Meds: Laboratory Tests Test 10/29/20 07:43 10/29/20 11:14 10/29/20 16:01 10/29/20 19:14 Glucose (Fingerstick) 88 mg/dL 206 mg/dL 111 mg/dL 207 mg/dL Current Medications Medications (Trade) Dose Ordered Sig/Alexx Route PRN Reason Start Time Stop Time Status Last Admin Dose Admin Acetaminophen (Tylenol) 650 mg PRN Q6HRS PRN PO MILD PAIN / TEMP > 100.3'F 10/14/20 20:15 Apixaban (Eliquis) 5 mg BID PO 10/14/20 21:00 10/29/20 20:28 Aspirin (Aspirin Enteric Coated) 81 mg DAILY PO 10/15/20 09:00 10/29/20 09:21 Aspirin (Aspirin Enteric Coated) 81 mg DAILY PO 10/15/20 09:00 UNV Divalproex Sodium (Depakote Sprinkles) 500 mg 0900,1300,1700 PO 10/15/20 09:00 10/22/20 17:40 DC 10/22/20 13:11 Divalproex Sodium (Depakote Sprinkles) 750 mg HS PO 10/14/20 21:00 10/29/20 18:37 DC 10/28/20 20:58 Furosemide (Lasix) 20 mg DAILY PO 10/15/20 09:00 10/29/20 09:20 Gabapentin (Neurontin) 100 mg BID PO 10/14/20 21:00 10/29/20 20:29 Acetaminophen/ Hydrocodone Bitart (Lortab 5/325) 1 tab PRN Q4HRS PRN PO MODERATE PAIN, SEVERE PAIN 10/14/20 20:15 10/24/20 17:49 Hydroxyzine HCl (Atarax) 25 mg PRN TID PRN PO ITCHING 10/14/20 21:00 10/27/20 18:36 Insulin Human Lispro (HumaLOG) 1 units TIDWMEALS SQ 10/15/20 08:00 Cancel Linagliptin (Tradjenta) 5 mg DAILY PO 10/15/20 09:00 10/29/20 09:21 Al Hydroxide/Mg Hydroxide (Mylanta Plus Xs) 15 ml PRN BFRMEALHC PRN PO DYSPEPSIA 10/14/20 20:15 Melatonin (Melatonin) 3 mg HS PO 10/14/20 21:00 10/29/20 20:27 Metformin HCl (Glucophage) 750 mg BIDWMEALS PO 10/15/20 08:00 10/29/20 16:05 Metoprolol Succinate (Toprol Xl) 50 mg DAILY PO 10/15/20 09:00 10/29/20 09:21 Nystatin (Nystop) 15 rocio BID TP 10/14/20 21:00 10/24/20 19:29 DC 10/24/20 09:30 Risperidone (RisperDAL) 0.5 mg BID PO 10/14/20 21:00 10/29/20 20:28 Sertraline HCl (Zoloft) 50 mg DAILY PO 10/15/20 09:00 10/29/20 09:21 Atorvastatin Calcium (Lipitor) 40 mg QHS PO 10/14/20 21:00 10/29/20 20:28 Cyanocobalamin (Vitamin B-12) 500 mcg DAILY PO 10/15/20 09:00 10/29/20 09:21 Insulin Glargine (Lantus Syringe) 35 unit DAILY SQ 10/15/20 09:00 10/21/20 16:52 DC 10/21/20 10:03 Lactobacillus Rhamnosus (Culturelle) 1 cap DAILY PO 10/15/20 09:00 10/29/20 09:21 Magnesium Hydroxide (Milk Of Magnesia) 2,400 mg PRN DAILY PRN PO CONSTIPATION 10/14/20 21:00 10/25/20 20:04 Multi-Ingredient Ointment (Analgesic [place]) 1 rocio PRN Q6HRS PRN TP MUSCLE PAIN 10/14/20 21:00 Multivitamins/ Calcium (Thera-M Plus) 1 tab DAILY PO 10/15/20 09:00 10/29/20 09:20 Pantoprazole Sodium (Protonix) 40 mg BIDWMEALS PO 10/15/20 08:00 10/29/20 16:05 Potassium Chloride (Klor-Con) 10 meq DAILYWBKFT PO 10/15/20 08:00 10/29/20 09:22 Vitamin D (Vitamin D3) 500 unit DAILY PO 10/15/20 09:00 10/29/20 09:21 Acetaminophen (Tylenol) 650 mg PRN Q6HRS PRN PO MILD PAIN / TEMP > 100.3'F 10/14/20 23:15 10/14/20 23:34 DC Multi-Ingredient Ointment (Analgesic [place]) 1 rocio PRN QID PRN TP MUSCLE PAIN 10/14/20 23:15 10/16/20 08:37 DC Al Hydroxide/Mg Hydroxide (Mylanta Plus Xs) 15 ml PRN AFTMEALHC PRN PO DYSPEPSIA 10/14/20 23:15 10/14/20 23:39 DC Magnesium Hydroxide (Milk Of Magnesia) 2,400 mg PRN QHS PRN PO CONSTIPATION 10/14/20 23:15 10/14/20 23:39 DC Insulin Human Lispro (HumaLOG) 0-5 UNITS TIDWMEALS SQ 10/15/20 12:00 10/29/20 12:00 Ertapenem 1 gm/ Sodium Chloride 50 ml @ 100 mls/hr DAILY IV 10/20/20 09:00 10/28/20 22:00 DC 10/28/20 09:40 Insulin Glargine (Lantus Syringe) 20 unit DAILY SQ 10/21/20 17:00 10/29/20 09:00 Divalproex Sodium (Depakote Sprinkles) 500 mg 0900,1400 PO 10/23/20 09:00 10/29/20 18:37 DC 10/29/20 13:48 Nystatin (Nystop) 1 rocio BID TP 10/24/20 21:00 10/29/20 20:29 Divalproex Sodium (Depakote Sprinkles) 500 mg 0900,1400 PO 10/30/20 09:00 Divalproex Sodium (Depakote Sprinkles) 750 mg HS PO 10/29/20 21:00 10/29/20 20:27 Current Medications Medications (Trade) Dose Ordered Sig/Alexx Route PRN Reason Start Time Stop Time Status Last Admin Dose Admin Divalproex Sodium (Depakote Sprinkles) 750 mg HS PO 10/29/20 21:00 10/29/20 20:27 I have reviewed the current psychotropics carefully including drug interactions. Risk benefit ratio favors no change other than as noted in my dictated progress note. Diagnosis: Problems: (1) Schizoaffective disorder, bipolar type (2) Impulse control disorder, unspecified (3) Anxiety disorder, unspecified (4) Bipolar disorder, curr episode mixed, severe, with psychotic features (5) UTI due to extended-spectrum beta lactamase (ESBL) producing Escherichia coli CHAVO WANG MD October 30, 2020 06:55
[2020-10-30] MEDS: INSULIN LISPRO 300 UNITS/3 ML VIAL. SQ SCH ×3 (07:02→16:40)
[2020-10-30 07:49] LABS: BASO # 0.1 x10^3/uL (0.0-0.2); BASO % 1 % (0-3); EOS # 0.2 x10^3/uL (0.0-0.7); EOS % 1 % (0-3); HEMATOCRIT 33.8 % (36.0-47.0); HEMOGLOBIN 10.9 g/dL (12.0-15.5); LYMPH # 2.2 x10^3/uL (1.0-4.8); LYMPH % 20 % (24-48); MEAN CORPUSCULAR HEMOGLOBIN 29 pg (25-35); MEAN CORPUSCULAR HGB CONC 32 g/dL (31-37); MEAN CORPUSCULAR VOLUME 91 fL (79-100); MONO # 0.6 x10^3/uL (0.0-1.1); MONO % 6 % (0-9); NEUT % 73 % (31-73); PLATELET COUNT 380 x10^3/uL (140-400); RED CELL DISTRIBUTION WIDTH 17.8 % (11.5-14.5)
[2020-10-30 07:59] LABS: ALBUMIN 2.3 g/dL (3.4-5.0); ALBUMIN/GLOBULIN RATIO 0.5 (1.0-1.7); CALCIUM 8.8 mg/dL (8.5-10.1); TOTAL BILIRUBIN 0.3 mg/dL (0.2-1.0); TOTAL PROTEIN 6.6 g/dL (6.4-8.2)
[2020-10-30] MEDS: MULTIVITAMIN with MINERAL TABLET. PO SCH (08:35)
[2020-10-30] MEDS: risperiDONE 0.5 MG TABLET. PO SCH (08:35)
[2020-10-30] MEDS: LACTOBACILLUS RHAMNOSUS GG 1 CAPSULE. PO SCH (08:35)
[2020-10-30] MEDS: ASPIRIN ENTERIC COATED 81 MG TABLET.DR. PO SCH (08:35)
[2020-10-30] MEDS: DIVALPROEX 125 MG CAP.SPRINK PO SCH ×2 (08:35→12:45)
[2020-10-30] MEDS: CYANOCOBALAMIN (VITAMIN B-12) 250 MCG TABLET. PO SCH (08:35)
[2020-10-30] MEDS: CHOLECALCIFEROL (VITAMIN D3) 1,000 UNIT TABLET PO SCH (08:35)
[2020-10-30] MEDS: POTASSIUM CHLORIDE 10 MEQ TABLET.ER. PO SCH (08:36)
[2020-10-30] MEDS: PANTOPRAZOLE 40 MG TABLET. PO SCH ×2 (08:36→17:00)
[2020-10-30] MEDS: FUROSEMIDE 20 MG TABLET PO SCH (08:36)
[2020-10-30] MEDS: APIXABAN 5 MG TABLET. PO SCH ×2 (08:37→19:48)
[2020-10-30] MEDS: SERTRALINE 50 MG TABLET. PO SCH (08:37)
[2020-10-30] MEDS: metFORMIN 500 MG TABLET PO SCH ×2 (08:37→17:00)
[2020-10-30] MEDS: LINAGLIPTIN 5 MG TABLET PO SCH (08:37)
[2020-10-30] MEDS: GABAPENTIN 100 MG CAPSULE. PO SCH (08:37)
[2020-10-30 08:51] VITALS: BP 93/65
[2020-10-30] MEDS: METOPROLOL SUCC 24HR ER 50 MG TAB.ER.24H. PO SCH (09:00)
[2020-10-30] MEDS: NYSTATIN TOPICAL POWDER 15GM BOTTLE. TP SCH ×2 (09:00→19:48)
[2020-10-30] MEDS: INSULIN GLARGINE SYRINGE. SQ SCH (09:00)
--- NOTE | 2020-10-30 12:48 | NUR ---
Pt continues with abrasive affect and verbal aggression towards staff. Pt lacks insight and claims she has "never" acted in the fashion alleged by Lucy Murry during her intake, claims she has "never" insulted members of [facility] staff, and claims she has "never" insulted this nurse the previous day before. It is unknown if this is a refusal to take responsibility/accountability for actions, or a genuine memory defect. Pt has responded to medication instructions with "fuck you bitch." Firm reiteration of instructions resulted in eventual medication compliance. Attempts at redirection were met with further insults, slurs, and "you're not my nurse anymore." Pt continues to act helpless with tasks which she has demonstrated ability to perform in the past and calls out for help repeatedly. She has been absent of physical aggression towards others. Plan of care continues, will pass to next shift.
[2020-10-30 15:58] VITALS: BP 90/63
--- NOTE | 2020-10-30 17:36 | NUR ---
When this nurse and KETTLE GIRL moved pt's bed to reposition pt, multiple pills were found on the floor between her bed and the wall. When asked how the pills got behind her bed pt replied, "The alberta next door did it."
[2020-10-30] MEDS: GABAPENTIN 250 MG/5 ML ORAL SOLUTION. PO SCH (19:47)
[2020-10-30] MEDS: risperiDONE ORAL 1 MG/ML 30ml BOTTLE. PO SCH (19:48)
[2020-10-30] MEDS: ATORVASTATIN CALCIUM 20 MG TABLET PO SCH (19:48)
[2020-10-30] MEDS: MELATONIN 3 MG TABLET PO SCH (19:48)
[2020-10-30] MEDS ORDERED: VALPROATE ACID 250 MG/5 ML ORAL SOLUTION PO SCH (21:00)
--- NOTE | 2020-10-30 22:11 | PDOC ---
Exam Note: Edgar Note: Please also refer to the separate dictated note~for this date of service dictated separately.~Patient seen individually. Discussed the patient with Nursing staff reviewed the chart.~Reviewed interim history and current functioning. Reviewed vital signs,~Labs/ Radiology~and current medications noted below. Continue current treatment with the changes noted in the dictated addendum note Assessment: Vital Signs/I&O: Vital Signs Date Time Temp Pulse Resp B/P (MAP) Pulse Ox O2 Delivery O2 Flow Rate FiO2 10/30/20 15:58 97.4 75 16 90/63 (72) 96 10/28/20 06:03 Room Air I & O 10/29/20 10/29/20 10/30/20 15:00 23:00 07:00 Intake Total 360 ml 480 ml Balance 360 ml 480 ml Labs: Laboratory Tests Test 10/30/20 06:57 10/30/20 07:34 10/30/20 08:08 10/30/20 11:20 Glucose (Fingerstick) 122 mg/dL (70-99) H 146 mg/dL (70-99) H 124 mg/dL (70-99) H White Blood Count 11.0 x10^3/uL (4.0-11.0) Red Blood Count 3.70 x10^6/uL (3.50-5.40) Hemoglobin 10.9 g/dL (12.0-15.5) L Hematocrit 33.8 % (36.0-47.0) L Mean Corpuscular Volume 91 fL (79-100) Mean Corpuscular Hemoglobin 29 pg (25-35) Mean Corpuscular Hemoglobin Concent 32 g/dL (31-37) Red Cell Distribution Width 17.8 % (11.5-14.5) H Platelet Count 380 x10^3/uL (140-400) Neutrophils (%) (Auto) 73 % (31-73) Lymphocytes (%) (Auto) 20 % (24-48) L Monocytes (%) (Auto) 6 % (0-9) Eosinophils (%) (Auto) 1 % (0-3) Basophils (%) (Auto) 1 % (0-3) Neutrophils # (Auto) 8.0 x10^3uL (1.8-7.7) H Lymphocytes # (Auto) 2.2 x10^3/uL (1.0-4.8) Monocytes # (Auto) 0.6 x10^3/uL (0.0-1.1) Eosinophils # (Auto) 0.2 x10^3/uL (0.0-0.7) Basophils # (Auto) 0.1 x10^3/uL (0.0-0.2) Sodium Level 141 mmol/L (136-145) Potassium Level 4.0 mmol/L (3.5-5.1) Chloride Level 105 mmol/L (98-107) Carbon Dioxide Level 25 mmol/L (21-32) Anion Gap 11 (6-14) Blood Urea Nitrogen 26 mg/dL (7-20) H Creatinine 1.0 mg/dL (0.6-1.0) Estimated GFR (Cockcroft-Gault) 55.0 BUN/Creatinine Ratio 26 (6-20) H Glucose Level 129 mg/dL (70-99) H Calcium Level 8.8 mg/dL (8.5-10.1) Total Bilirubin 0.3 mg/dL (0.2-1.0) Aspartate Amino Transferase (AST) 43 U/L (15-37) H Alanine Aminotransferase (ALT) 35 U/L (14-59) Alkaline Phosphatase 87 U/L (46-116) Total Protein 6.6 g/dL (6.4-8.2) Albumin 2.3 g/dL (3.4-5.0) L Albumin/Globulin Ratio 0.5 (1.0-1.7) L Test 10/30/20 16:35 10/30/20 19:13 Glucose (Fingerstick) 100 mg/dL (70-99) H 93 mg/dL (70-99) Current Medications: Meds: Laboratory Tests Test 10/30/20 06:57 10/30/20 07:34 10/30/20 08:08 10/30/20 11:20 Glucose (Fingerstick) 122 mg/dL 146 mg/dL 124 mg/dL White Blood Count 11.0 x10^3/uL Red Blood Count 3.70 x10^6/uL Hemoglobin 10.9 g/dL Hematocrit 33.8 % Mean Corpuscular Volume 91 fL Mean Corpuscular Hemoglobin 29 pg Mean Corpuscular Hemoglobin Concent 32 g/dL Red Cell Distribution Width 17.8 % Platelet Count 380 x10^3/uL Neutrophils (%) (Auto) 73 % Lymphocytes (%) (Auto) 20 % Monocytes (%) (Auto) 6 % Eosinophils (%) (Auto) 1 % Basophils (%) (Auto) 1 % Neutrophils # (Auto) 8.0 x10^3uL Lymphocytes # (Auto) 2.2 x10^3/uL Monocytes # (Auto) 0.6 x10^3/uL Eosinophils # (Auto) 0.2 x10^3/uL Basophils # (Auto) 0.1 x10^3/uL Sodium Level 141 mmol/L Potassium Level 4.0 mmol/L Chloride Level 105 mmol/L Carbon Dioxide Level 25 mmol/L Anion Gap 11 Blood Urea Nitrogen 26 mg/dL Creatinine 1.0 mg/dL Estimated GFR (Cockcroft-Gault) 55.0 BUN/Creatinine Ratio 26 Glucose Level 129 mg/dL Calcium Level 8.8 mg/dL Total Bilirubin 0.3 mg/dL Aspartate Amino Transf (AST/SGOT) 43 U/L Alanine Aminotransferase (ALT/SGPT) 35 U/L Alkaline Phosphatase 87 U/L Total Protein 6.6 g/dL Albumin 2.3 g/dL Albumin/Globulin Ratio 0.5 Test 10/30/20 16:35 10/30/20 19:13 Glucose (Fingerstick) 100 mg/dL 93 mg/dL Current Medications Medications (Trade) Dose Ordered Sig/Alexx Route PRN Reason Start Time Stop Time Status Last Admin Dose Admin Acetaminophen (Tylenol) 650 mg PRN Q6HRS PRN PO MILD PAIN / TEMP > 100.3'F 10/14/20 20:15 Apixaban (Eliquis) 5 mg BID PO 10/14/20 21:00 10/30/20 19:48 Aspirin (Aspirin Enteric Coated) 81 mg DAILY PO 10/15/20 09:00 10/30/20 08:35 Aspirin (Aspirin Enteric Coated) 81 mg DAILY PO 10/15/20 09:00 UNV Divalproex Sodium (Depakote Sprinkles) 500 mg 0900,1300,1700 PO 10/15/20 09:00 10/22/20 17:40 DC 10/22/20 13:11 Divalproex Sodium (Depakote Sprinkles) 750 mg HS PO 10/14/20 21:00 10/29/20 18:37 DC 10/28/20 20:58 Furosemide (Lasix) 20 mg DAILY PO 10/15/20 09:00 10/30/20 08:36 Gabapentin (Neurontin) 100 mg BID PO 10/14/20 21:00 10/30/20 16:03 DC 10/30/20 08:37 Acetaminophen/ Hydrocodone Bitart (Lortab 5/325) 1 tab PRN Q4HRS PRN PO MODERATE PAIN, SEVERE PAIN 10/14/20 20:15 10/24/20 17:49 Hydroxyzine HCl (Atarax) 25 mg PRN TID PRN PO ITCHING 10/14/20 21:00 10/27/20 18:36 Insulin Human Lispro (HumaLOG) 1 units TIDWMEALS SQ 10/15/20 08:00 Cancel Linagliptin (Tradjenta) 5 mg DAILY PO 10/15/20 09:00 10/30/20 08:37 Al Hydroxide/Mg Hydroxide (Mylanta Plus Xs) 15 ml PRN BFRMEALHC PRN PO DYSPEPSIA 10/14/20 20:15 Melatonin (Melatonin) 3 mg HS PO 10/14/20 21:00 10/30/20 19:48 Metformin HCl (Glucophage) 750 mg BIDWMEALS PO 10/15/20 08:00 10/30/20 17:00 Metoprolol Succinate (Toprol Xl) 50 mg DAILY PO 10/15/20 09:00 10/29/20 09:21 Nystatin (Nystop) 15 rocio BID TP 10/14/20 21:00 10/24/20 19:29 DC 10/24/20 09:30 Risperidone (RisperDAL) 0.5 mg BID PO 10/14/20 21:00 10/30/20 16:03 DC 10/30/20 08:35 Sertraline HCl (Zoloft) 50 mg DAILY PO 10/15/20 09:00 10/30/20 08:37 Atorvastatin Calcium (Lipitor) 40 mg QHS PO 10/14/20 21:00 10/30/20 19:48 Cyanocobalamin (Vitamin B-12) 500 mcg DAILY PO 10/15/20 09:00 10/30/20 08:35 Insulin Glargine (Lantus Syringe) 35 unit DAILY SQ 10/15/20 09:00 10/21/20 16:52 DC 10/21/20 10:03 Lactobacillus Rhamnosus (Culturelle) 1 cap DAILY PO 10/15/20 09:00 10/30/20 08:35 Magnesium Hydroxide (Milk Of Magnesia) 2,400 mg PRN DAILY PRN PO CONSTIPATION 10/14/20 21:00 10/25/20 20:04 Multi-Ingredient Ointment (Analgesic [place]) 1 rocio PRN Q6HRS PRN TP MUSCLE PAIN 10/14/20 21:00 Multivitamins/ Calcium (Thera-M Plus) 1 tab DAILY PO 10/15/20 09:00 10/30/20 08:35 Pantoprazole Sodium (Protonix) 40 mg BIDWMEALS PO 10/15/20 08:00 10/30/20 17:00 Potassium Chloride (Klor-Con) 10 meq DAILYWBKFT PO 10/15/20 08:00 10/30/20 08:36 Vitamin D (Vitamin D3) 500 unit DAILY PO 10/15/20 09:00 10/30/20 08:35 Acetaminophen (Tylenol) 650 mg PRN Q6HRS PRN PO MILD PAIN / TEMP > 100.3'F 10/14/20 23:15 10/14/20 23:34 DC Multi-Ingredient Ointment (Analgesic [place]) 1 rocio PRN QID PRN TP MUSCLE PAIN 10/14/20 23:15 10/16/20 08:37 DC Al Hydroxide/Mg Hydroxide (Mylanta Plus Xs) 15 ml PRN AFTMEALHC PRN PO DYSPEPSIA 10/14/20 23:15 10/14/20 23:39 DC Magnesium Hydroxide (Milk Of Magnesia) 2,400 mg PRN QHS PRN PO CONSTIPATION 10/14/20 23:15 10/14/20 23:39 DC Insulin Human Lispro (HumaLOG) 0-5 UNITS TIDWMEALS SQ 10/15/20 12:00 10/29/20 12:00 Ertapenem 1 gm/ Sodium Chloride 50 ml @ 100 mls/hr DAILY IV 10/20/20 09:00 10/28/20 22:00 DC 10/28/20 09:40 Insulin Glargine (Lantus Syringe) 20 unit DAILY SQ 10/21/20 17:00 10/30/20 09:00 Divalproex Sodium (Depakote Sprinkles) 500 mg 0900,1400 PO 10/23/20 09:00 10/29/20 18:37 DC 10/29/20 13:48 Nystatin (Nystop) 1 rocio BID TP 10/24/20 21:00 10/30/20 19:48 Divalproex Sodium (Depakote Sprinkles) 500 mg 0900,1400 PO 10/30/20 09:00 10/30/20 16:03 DC 10/30/20 12:45 Divalproex Sodium (Depakote Sprinkles) 750 mg HS PO 10/29/20 21:00 10/30/20 16:03 DC 10/29/20 20:27 Valproic Acid (Depakene) 750 mg QHS PO 10/30/20 21:00 10/30/20 19:47 Valproic Acid (Depakene) 500 mg 0900,1400 PO 10/31/20 09:00 Gabapentin (Neurontin Oral Soln) 100 mg BID PO 10/30/20 21:00 10/30/20 19:47 Risperidone (RisperDAL) 0.5 mg BID PO 10/30/20 21:00 10/30/20 19:48 Current Medications Medications (Trade) Dose Ordered Sig/Alexx Route PRN Reason Start Time Stop Time Status Last Admin Dose Admin Divalproex Sodium (Depakote Sprinkles) 500 mg 0900,1400 PO 10/30/20 09:00 10/30/20 16:03 DC 10/30/20 12:45 Valproic Acid (Depakene) 750 mg QHS PO 10/30/20 21:00 10/30/20 19:47 Gabapentin (Neurontin Oral Soln) 100 mg BID PO 10/30/20 21:00 10/30/20 19:47 Risperidone (RisperDAL) 0.5 mg BID PO 10/30/20 21:00 10/30/20 19:48 I have reviewed the current psychotropics carefully including drug interactions. Risk benefit ratio favors no change other than as noted in my dictated progress note. Diagnosis: Problems: (1) Schizoaffective disorder, bipolar type (2) Impulse control disorder, unspecified (3) Anxiety disorder, unspecified (4) Bipolar disorder, curr episode mixed, severe, with psychotic features CHAVO WANG MD October 30, 2020 22:11
--- NOTE | 2020-10-30 22:14 | NUR ---
Pt located in her room this evening laying calmly in bed. Pt pleasant when approached. Many HS medications (Depakote, Gabapentin, Risperdal) had been changed to liquid form per dayshift RN. Liquid medications administered in grape juice. Pt resistive and only consumed approximately 50% of liquid. The remaining medications were crushed in chocolate pudding and pt was compliant with those medications. No yelling this evening. Continues to be resistive with ADLs at times.
[2020-10-30] MEDS: hydrOXYzine HCL 25 MG TABLET PO PRN (22:43)
[2020-10-31 06:11] VITALS: BP 126/74
[2020-10-31] MEDS: INSULIN LISPRO 300 UNITS/3 ML VIAL. SQ SCH ×3 (08:00→17:17)
[2020-10-31] MEDS: GABAPENTIN 250 MG/5 ML ORAL SOLUTION. PO SCH (08:26)
[2020-10-31] MEDS: VALPROATE ACID 250 MG/5 ML ORAL SOLUTION PO SCH ×2 (08:26→13:36)
[2020-10-31] MEDS: SERTRALINE 50 MG TABLET. PO SCH (08:27)
[2020-10-31] MEDS: ASPIRIN ENTERIC COATED 81 MG TABLET.DR. PO SCH (08:27)
[2020-10-31] MEDS: CYANOCOBALAMIN (VITAMIN B-12) 250 MCG TABLET. PO SCH (08:27)
[2020-10-31] MEDS: FUROSEMIDE 20 MG TABLET PO SCH (08:27)
[2020-10-31] MEDS: METOPROLOL SUCC 24HR ER 50 MG TAB.ER.24H. PO SCH (08:28)
[2020-10-31] MEDS: CHOLECALCIFEROL (VITAMIN D3) 1,000 UNIT TABLET PO SCH (08:28)
[2020-10-31] MEDS: MULTIVITAMIN with MINERAL TABLET. PO SCH (08:28)
[2020-10-31] MEDS: LINAGLIPTIN 5 MG TABLET PO SCH (08:28)
[2020-10-31] MEDS: LACTOBACILLUS RHAMNOSUS GG 1 CAPSULE. PO SCH (08:28)
[2020-10-31] MEDS: metFORMIN 500 MG TABLET PO SCH ×2 (08:28→17:12)
[2020-10-31] MEDS: PANTOPRAZOLE 40 MG TABLET. PO SCH ×2 (08:29→17:12)
[2020-10-31] MEDS: APIXABAN 5 MG TABLET. PO SCH ×2 (08:29→21:20)
[2020-10-31] MEDS: POTASSIUM CHLORIDE 10 MEQ TABLET.ER. PO SCH (08:29)
[2020-10-31] MEDS: risperiDONE ORAL 1 MG/ML 30ml BOTTLE. PO SCH (08:29)
[2020-10-31] MEDS: NYSTATIN TOPICAL POWDER 15GM BOTTLE. TP SCH ×2 (08:42→21:21)
[2020-10-31] MEDS: INSULIN GLARGINE SYRINGE. SQ SCH (09:20)
--- NOTE | 2020-10-31 12:21 | NUR ---
Nursing note: Pt in dining room at time of AM med pass and assessment. She is compliant with meds crushed in applesauce and liquid meds mixed with sprite. Pt denies having any pain/concerns. Pt has remained in the day room for most of the shift, but is currently in the dining room eating lunch. Will continue to monitor.
--- NOTE | 2020-10-31 13:04 | NUR ---
WEEKLY ACTIVITY THERAPY NOTE Date of Admission: 10/14/20 Date of AT Assessment: 10/16 Precipitating behaviors that initiated intake and admission: yelling out, name calling, belligerent, verbally aggressive, cursing, socially disruptive, agitated, resistant to cares Goal aimed:support socialization and engagement Initial Goal: Pt will participate in at least three individual or group Activity Therapy sessions per week. Weekly progress towards goal: did not achieve, 0/3 Group participation level: none Weekly highlights: Behaviors observed: on contact isolation, unable to attend groups Plan: no change to goal Beneficial adaptations:music
[2020-10-31 15:54] VITALS: BP 100/67
[2020-10-31] MEDS: risperiDONE 0.25 MG TABLET. PO SCH (21:20)
[2020-10-31] MEDS: ATORVASTATIN CALCIUM 20 MG TABLET PO SCH (21:20)
[2020-10-31] MEDS: DIVALPROEX 125 MG CAP.SPRINK PO SCH (21:20)
[2020-10-31] MEDS: MELATONIN 3 MG TABLET PO SCH (21:20)
[2020-10-31] MEDS: GABAPENTIN 100 MG CAPSULE. PO SCH (21:20)
--- NOTE | 2020-10-31 21:52 | PDOC ---
Exam Note: Edgar Note: Please also refer to the separate dictated note~for this date of service dictated separately.~Patient seen individually. Discussed the patient with Nursing staff reviewed the chart.~Reviewed interim history and current functioning. Reviewed vital signs,~Labs/ Radiology~and current medications noted below. Continue current treatment with the changes noted in the dictated addendum note Assessment: Vital Signs/I&O: Vital Signs Date Time Temp Pulse Resp B/P (MAP) Pulse Ox O2 Delivery O2 Flow Rate FiO2 10/31/20 15:54 97.4 85 20 100/67 (78) 96 10/28/20 06:03 Room Air I & O 10/30/20 10/30/20 10/31/20 15:00 23:00 07:00 Intake Total 480 ml 320 ml Balance 480 ml 320 ml Labs: Laboratory Tests Test 10/31/20 07:20 10/31/20 11:35 10/31/20 16:48 10/31/20 19:18 Glucose (Fingerstick) 99 mg/dL (70-99) 135 mg/dL (70-99) H 151 mg/dL (70-99) H 138 mg/dL (70-99) H Current Medications: Meds: Laboratory Tests Test 10/31/20 07:20 10/31/20 11:35 10/31/20 16:48 10/31/20 19:18 Glucose (Fingerstick) 99 mg/dL 135 mg/dL 151 mg/dL 138 mg/dL Current Medications Medications (Trade) Dose Ordered Sig/Alexx Route PRN Reason Start Time Stop Time Status Last Admin Dose Admin Acetaminophen (Tylenol) 650 mg PRN Q6HRS PRN PO MILD PAIN / TEMP > 100.3'F 10/14/20 20:15 Apixaban (Eliquis) 5 mg BID PO 10/14/20 21:00 10/31/20 21:20 Aspirin (Aspirin Enteric Coated) 81 mg DAILY PO 10/15/20 09:00 10/31/20 08:27 Aspirin (Aspirin Enteric Coated) 81 mg DAILY PO 10/15/20 09:00 UNV Divalproex Sodium (Depakote Sprinkles) 500 mg 0900,1300,1700 PO 10/15/20 09:00 10/22/20 17:40 DC 10/22/20 13:11 Divalproex Sodium (Depakote Sprinkles) 750 mg HS PO 10/14/20 21:00 10/29/20 18:37 DC 10/28/20 20:58 Furosemide (Lasix) 20 mg DAILY PO 10/15/20 09:00 10/31/20 08:27 Gabapentin (Neurontin) 100 mg BID PO 10/14/20 21:00 10/30/20 16:03 DC 10/30/20 08:37 Acetaminophen/ Hydrocodone Bitart (Lortab 5/325) 1 tab PRN Q4HRS PRN PO MODERATE PAIN, SEVERE PAIN 10/14/20 20:15 10/24/20 17:49 Hydroxyzine HCl (Atarax) 25 mg PRN TID PRN PO ITCHING 10/14/20 21:00 10/30/20 22:43 Insulin Human Lispro (HumaLOG) 1 units TIDWMEALS SQ 10/15/20 08:00 Cancel Linagliptin (Tradjenta) 5 mg DAILY PO 10/15/20 09:00 10/31/20 08:28 Al Hydroxide/Mg Hydroxide (Mylanta Plus Xs) 15 ml PRN BFRMEALHC PRN PO DYSPEPSIA 10/14/20 20:15 Melatonin (Melatonin) 3 mg HS PO 10/14/20 21:00 10/31/20 21:20 Metformin HCl (Glucophage) 750 mg BIDWMEALS PO 10/15/20 08:00 10/31/20 17:12 Metoprolol Succinate (Toprol Xl) 50 mg DAILY PO 10/15/20 09:00 10/31/20 08:28 Nystatin (Nystop) 15 rocio BID TP 10/14/20 21:00 10/24/20 19:29 DC 10/24/20 09:30 Risperidone (RisperDAL) 0.5 mg BID PO 10/14/20 21:00 10/30/20 16:03 DC 10/30/20 08:35 Sertraline HCl (Zoloft) 50 mg DAILY PO 10/15/20 09:00 10/31/20 08:27 Atorvastatin Calcium (Lipitor) 40 mg QHS PO 10/14/20 21:00 10/31/20 21:20 Cyanocobalamin (Vitamin B-12) 500 mcg DAILY PO 10/15/20 09:00 10/31/20 08:27 Insulin Glargine (Lantus Syringe) 35 unit DAILY SQ 10/15/20 09:00 10/21/20 16:52 DC 10/21/20 10:03 Lactobacillus Rhamnosus (Culturelle) 1 cap DAILY PO 10/15/20 09:00 10/31/20 08:28 Magnesium Hydroxide (Milk Of Magnesia) 2,400 mg PRN DAILY PRN PO CONSTIPATION 10/14/20 21:00 10/25/20 20:04 Multi-Ingredient Ointment (Analgesic [place]) 1 rocio PRN Q6HRS PRN TP MUSCLE PAIN 10/14/20 21:00 Multivitamins/ Calcium (Thera-M Plus) 1 tab DAILY PO 10/15/20 09:00 10/31/20 08:28 Pantoprazole Sodium (Protonix) 40 mg BIDWMEALS PO 10/15/20 08:00 10/31/20 17:12 Potassium Chloride (Klor-Con) 10 meq DAILYWBKFT PO 10/15/20 08:00 10/31/20 08:29 Vitamin D (Vitamin D3) 500 unit DAILY PO 10/15/20 09:00 10/31/20 08:28 Acetaminophen (Tylenol) 650 mg PRN Q6HRS PRN PO MILD PAIN / TEMP > 100.3'F 10/14/20 23:15 10/14/20 23:34 DC Multi-Ingredient Ointment (Analgesic [place]) 1 rocio PRN QID PRN TP MUSCLE PAIN 10/14/20 23:15 10/16/20 08:37 DC Al Hydroxide/Mg Hydroxide (Mylanta Plus Xs) 15 ml PRN AFTMEALHC PRN PO DYSPEPSIA 10/14/20 23:15 10/14/20 23:39 DC Magnesium Hydroxide (Milk Of Magnesia) 2,400 mg PRN QHS PRN PO CONSTIPATION 10/14/20 23:15 10/14/20 23:39 DC Insulin Human Lispro (HumaLOG) 0-5 UNITS TIDWMEALS SQ 10/15/20 12:00 10/31/20 17:17 Ertapenem 1 gm/ Sodium Chloride 50 ml @ 100 mls/hr DAILY IV 10/20/20 09:00 10/28/20 22:00 DC 10/28/20 09:40 Insulin Glargine (Lantus Syringe) 20 unit DAILY SQ 10/21/20 17:00 10/31/20 09:20 Divalproex Sodium (Depakote Sprinkles) 500 mg 0900,1400 PO 10/23/20 09:00 10/29/20 18:37 DC 10/29/20 13:48 Nystatin (Nystop) 1 rocio BID TP 10/24/20 21:00 10/31/20 21:21 Divalproex Sodium (Depakote Sprinkles) 500 mg 0900,1400 PO 10/30/20 09:00 10/30/20 16:03 DC 10/30/20 12:45 Divalproex Sodium (Depakote Sprinkles) 750 mg HS PO 10/29/20 21:00 10/30/20 16:03 DC 10/29/20 20:27 Valproic Acid (Depakene) 750 mg QHS PO 10/30/20 21:00 10/31/20 15:02 DC 10/30/20 19:47 Valproic Acid (Depakene) 500 mg 0900,1400 PO 10/31/20 09:00 10/31/20 15:02 DC 10/31/20 13:36 Gabapentin (Neurontin Oral Soln) 100 mg BID PO 10/30/20 21:00 10/31/20 15:02 DC 10/31/20 08:26 Risperidone (RisperDAL) 0.5 mg BID PO 10/30/20 21:00 10/31/20 15:02 DC 10/31/20 08:29 Divalproex Sodium (Depakote Sprinkles) 750 mg HS PO 10/31/20 21:00 10/31/20 21:20 Divalproex Sodium (Depakote Sprinkles) 500 mg 0900,1400 PO 11/01/20 09:00 Risperidone (RisperDAL) 0.5 mg BID PO 10/31/20 21:00 10/31/20 21:20 Gabapentin (Neurontin) 100 mg BID PO 10/31/20 21:00 10/31/20 21:20 Current Medications Medications (Trade) Dose Ordered Sig/Alexx Route PRN Reason Start Time Stop Time Status Last Admin Dose Admin Valproic Acid (Depakene) 500 mg 0900,1400 PO 10/31/20 09:00 10/31/20 15:02 DC 10/31/20 13:36 Divalproex Sodium (Depakote Sprinkles) 750 mg HS PO 10/31/20 21:00 10/31/20 21:20 Risperidone (RisperDAL) 0.5 mg BID PO 10/31/20 21:00 10/31/20 21:20 Gabapentin (Neurontin) 100 mg BID PO 10/31/20 21:00 10/31/20 21:20 I have reviewed the current psychotropics carefully including drug interactions. Risk benefit ratio favors no change other than as noted in my dictated progress note. Diagnosis: Problems: (1) Schizoaffective disorder, bipolar type (2) Impulse control disorder, unspecified (3) Anxiety disorder, unspecified (4) Bipolar disorder, curr episode mixed, severe, with psychotic features CHAVO WANG MD Oct 31, 2020 21:52
--- NOTE | 2020-11-01 01:06 | NUR ---
Nursing Note The patient was located in her room laying in bed for her assessment and medication. The patient was alert to name, date and location. The patient took her medication whole floated in apple sauce. The patient was pleasant during interactions with this nurse. The patient is currently sleeping in her room.
[2020-11-01 05:57] VITALS: BP 108/67
--- NOTE | 2020-11-01 06:47 | PDOC ---
Exam Note: Edgar Note: This note is a late entry for 10/30/2020 covers elements not covered in my initial note. Subjective: The patient was seen individually in the evening of 10/30/2020 with Miriam MELGAR, discussed and reviewed the chart. She slept 7 hours previous night. She did well taking her medications previous night, yelling with cares and showers during the day today. She went into someone elses room, was agitated at nursing staff, tries to act helpless per nursing report even though she can do more for herself. The patient has been hoarding pills in her bed and we will change her Neurontin and Risperdal to liquid to help with this. Review of Systems: Ambulation impaired in wheelchair. No CV, , pulmonary, eye system symptoms on review. Mental Status Exam: The patient is reasonably oriented to herself. Speech is coherent. Abstraction is fair. Computation impaired. Language function intact. Attention span short. Mood and affect anxious, labile. Laboratory Data: Reviewed. Impression: Schizoaffective disorder bipolar type. Impulse control disorder unspecified. Anxiety disorder unspecified. Plan: Continue rest of the psychotropics unchanged. Assessment: Vital Signs/I&O: Vital Signs Date Time Temp Pulse Resp B/P (MAP) Pulse Ox O2 Delivery O2 Flow Rate FiO2 11/01/20 05:57 97.8 62 18 108/67 (81) 95 Room Air I & O 10/31/20 10/31/20 11/01/20 15:00 23:00 07:00 Intake Total 600 ml 240 ml 120 ml Balance 600 ml 240 ml 120 ml Labs: Laboratory Tests Test 10/31/20 07:20 10/31/20 11:35 10/31/20 16:48 10/31/20 19:18 Glucose (Fingerstick) 99 mg/dL (70-99) 135 mg/dL (70-99) H 151 mg/dL (70-99) H 138 mg/dL (70-99) H Current Medications: Meds: Laboratory Tests Test 10/31/20 07:20 10/31/20 11:35 10/31/20 16:48 10/31/20 19:18 Glucose (Fingerstick) 99 mg/dL 135 mg/dL 151 mg/dL 138 mg/dL Current Medications Medications (Trade) Dose Ordered Sig/Alexx Route PRN Reason Start Time Stop Time Status Last Admin Dose Admin Acetaminophen (Tylenol) 650 mg PRN Q6HRS PRN PO MILD PAIN / TEMP > 100.3'F 10/14/20 20:15 Apixaban (Eliquis) 5 mg BID PO 10/14/20 21:00 10/31/20 21:20 Aspirin (Aspirin Enteric Coated) 81 mg DAILY PO 10/15/20 09:00 10/31/20 08:27 Aspirin (Aspirin Enteric Coated) 81 mg DAILY PO 10/15/20 09:00 UNV Divalproex Sodium (Depakote Sprinkles) 500 mg 0900,1300,1700 PO 10/15/20 09:00 10/22/20 17:40 DC 10/22/20 13:11 Divalproex Sodium (Depakote Sprinkles) 750 mg HS PO 10/14/20 21:00 10/29/20 18:37 DC 10/28/20 20:58 Furosemide (Lasix) 20 mg DAILY PO 10/15/20 09:00 10/31/20 08:27 Gabapentin (Neurontin) 100 mg BID PO 10/14/20 21:00 10/30/20 16:03 DC 10/30/20 08:37 Acetaminophen/ Hydrocodone Bitart (Lortab 5/325) 1 tab PRN Q4HRS PRN PO MODERATE PAIN, SEVERE PAIN 10/14/20 20:15 10/24/20 17:49 Hydroxyzine HCl (Atarax) 25 mg PRN TID PRN PO ITCHING 10/14/20 21:00 10/30/20 22:43 Insulin Human Lispro (HumaLOG) 1 units TIDWMEALS SQ 10/15/20 08:00 Cancel Linagliptin (Tradjenta) 5 mg DAILY PO 10/15/20 09:00 10/31/20 08:28 Al Hydroxide/Mg Hydroxide (Mylanta Plus Xs) 15 ml PRN BFRMEALHC PRN PO DYSPEPSIA 10/14/20 20:15 Melatonin (Melatonin) 3 mg HS PO 10/14/20 21:00 10/31/20 21:20 Metformin HCl (Glucophage) 750 mg BIDWMEALS PO 10/15/20 08:00 10/31/20 17:12 Metoprolol Succinate (Toprol Xl) 50 mg DAILY PO 10/15/20 09:00 10/31/20 08:28 Nystatin (Nystop) 15 rocio BID TP 10/14/20 21:00 10/24/20 19:29 DC 10/24/20 09:30 Risperidone (RisperDAL) 0.5 mg BID PO 10/14/20 21:00 10/30/20 16:03 DC 10/30/20 08:35 Sertraline HCl (Zoloft) 50 mg DAILY PO 10/15/20 09:00 10/31/20 08:27 Atorvastatin Calcium (Lipitor) 40 mg QHS PO 10/14/20 21:00 10/31/20 21:20 Cyanocobalamin (Vitamin B-12) 500 mcg DAILY PO 10/15/20 09:00 10/31/20 08:27 Insulin Glargine (Lantus Syringe) 35 unit DAILY SQ 10/15/20 09:00 10/21/20 16:52 DC 10/21/20 10:03 Lactobacillus Rhamnosus (Culturelle) 1 cap DAILY PO 10/15/20 09:00 10/31/20 08:28 Magnesium Hydroxide (Milk Of Magnesia) 2,400 mg PRN DAILY PRN PO CONSTIPATION 10/14/20 21:00 10/25/20 20:04 Multi-Ingredient Ointment (Analgesic [place]) 1 rocio PRN Q6HRS PRN TP MUSCLE PAIN 10/14/20 21:00 Multivitamins/ Calcium (Thera-M Plus) 1 tab DAILY PO 10/15/20 09:00 10/31/20 08:28 Pantoprazole Sodium (Protonix) 40 mg BIDWMEALS PO 10/15/20 08:00 10/31/20 17:12 Potassium Chloride (Klor-Con) 10 meq DAILYWBKFT PO 10/15/20 08:00 10/31/20 08:29 Vitamin D (Vitamin D3) 500 unit DAILY PO 10/15/20 09:00 10/31/20 08:28 Acetaminophen (Tylenol) 650 mg PRN Q6HRS PRN PO MILD PAIN / TEMP > 100.3'F 10/14/20 23:15 10/14/20 23:34 DC Multi-Ingredient Ointment (Analgesic [place]) 1 rocio PRN QID PRN TP MUSCLE PAIN 10/14/20 23:15 10/16/20 08:37 DC Al Hydroxide/Mg Hydroxide (Mylanta Plus Xs) 15 ml PRN AFTMEALHC PRN PO DYSPEPSIA 10/14/20 23:15 10/14/20 23:39 DC Magnesium Hydroxide (Milk Of Magnesia) 2,400 mg PRN QHS PRN PO CONSTIPATION 10/14/20 23:15 10/14/20 23:39 DC Insulin Human Lispro (HumaLOG) 0-5 UNITS TIDWMEALS SQ 10/15/20 12:00 10/31/20 17:17 Ertapenem 1 gm/ Sodium Chloride 50 ml @ 100 mls/hr DAILY IV 10/20/20 09:00 10/28/20 22:00 DC 10/28/20 09:40 Insulin Glargine (Lantus Syringe) 20 unit DAILY SQ 10/21/20 17:00 10/31/20 09:20 Divalproex Sodium (Depakote Sprinkles) 500 mg 0900,1400 PO 10/23/20 09:00 10/29/20 18:37 DC 10/29/20 13:48 Nystatin (Nystop) 1 rocio BID TP 10/24/20 21:00 10/31/20 21:21 Divalproex Sodium (Depakote Sprinkles) 500 mg 0900,1400 PO 10/30/20 09:00 10/30/20 16:03 DC 10/30/20 12:45 Divalproex Sodium (Depakote Sprinkles) 750 mg HS PO 10/29/20 21:00 10/30/20 16:03 DC 10/29/20 20:27 Valproic Acid (Depakene) 750 mg QHS PO 10/30/20 21:00 10/31/20 15:02 DC 10/30/20 19:47 Valproic Acid (Depakene) 500 mg 0900,1400 PO 10/31/20 09:00 10/31/20 15:02 DC 10/31/20 13:36 Gabapentin (Neurontin Oral Soln) 100 mg BID PO 10/30/20 21:00 10/31/20 15:02 DC 10/31/20 08:26 Risperidone (RisperDAL) 0.5 mg BID PO 10/30/20 21:00 10/31/20 15:02 DC 10/31/20 08:29 Divalproex Sodium (Depakote Sprinkles) 750 mg HS PO 10/31/20 21:00 10/31/20 21:20 Divalproex Sodium (Depakote Sprinkles) 500 mg 0900,1400 PO 11/01/20 09:00 Risperidone (RisperDAL) 0.5 mg BID PO 10/31/20 21:00 10/31/20 21:20 Gabapentin (Neurontin) 100 mg BID PO 10/31/20 21:00 10/31/20 21:20 Current Medications Medications (Trade) Dose Ordered Sig/Alexx Route PRN Reason Start Time Stop Time Status Last Admin Dose Admin Valproic Acid (Depakene) 500 mg 0900,1400 PO 10/31/20 09:00 10/31/20 15:02 DC 10/31/20 13:36 Divalproex Sodium (Depakote Sprinkles) 750 mg HS PO 10/31/20 21:00 10/31/20 21:20 Risperidone (RisperDAL) 0.5 mg BID PO 10/31/20 21:00 10/31/20 21:20 Gabapentin (Neurontin) 100 mg BID PO 10/31/20 21:00 10/31/20 21:20 I have reviewed the current psychotropics carefully including drug interactions. Risk benefit ratio favors no change other than as noted in my dictated progress note. Diagnosis: Problems: (1) Schizoaffective disorder, bipolar type (2) Impulse control disorder, unspecified (3) Anxiety disorder, unspecified (4) Bipolar disorder, curr episode mixed, severe, with psychotic features CHAVO WANG MD Nov 01, 2020 06:47
--- NOTE | 2020-11-01 07:23 | PDOC ---
Exam Note: Edgar Note: This note is a late entry for 10/31/2020 covers elements not covered in my initial note. Subjective: The patient was reviewed in the morning of 10/31/2020 for a treatment team meeting with Sadaf Aguilar, Iraida Wills and Mari (drug abuse social worker), Cheri, activity therapy and Treasure MELGAR, discussed and reviewed the chart. She slept 7-1/2 hours previous night. Appetite is 70%. She is yelling with cares. She takes her medications crushed in apple sauce. Depakote, Risperdal were initially changed to liquid but now she is compliant with her regular meds and we will change it back to Depakote Sprinkle and Risperdal tablets. Review of Systems: Ambulation impaired in wheelchair. No CV, , pulmonary, eye system symptoms on review. Mental Status Exam: The patient is reasonably oriented to herself. Speech is c oherent. Abstraction is fair. Computation impaired. Language function intact. Attention span short. Mood and affect anxious, labile. Laboratory Data: Reviewed. Impression: Schizoaffective disorder bipolar type. Impulse control disorder unspecified. Anxiety disorder unspecified. Plan: Continue rest of the psychotropics unchanged. Assessment: Vital Signs/I&O: Vital Signs Date Time Temp Pulse Resp B/P (MAP) Pulse Ox O2 Delivery O2 Flow Rate FiO2 11/01/20 05:57 97.8 62 18 108/67 (81) 95 Room Air I & O 10/31/20 10/31/20 11/01/20 15:00 23:00 07:00 Intake Total 600 ml 240 ml 120 ml Balance 600 ml 240 ml 120 ml Labs: Laboratory Tests Test 10/31/20 11:35 10/31/20 16:48 10/31/20 19:18 11/01/20 07:15 Glucose (Fingerstick) 135 mg/dL (70-99) H 151 mg/dL (70-99) H 138 mg/dL (70-99) H 92 mg/dL (70-99) Current Medications: Meds: Laboratory Tests Test 10/31/20 11:35 10/31/20 16:48 10/31/20 19:18 11/01/20 07:15 Glucose (Fingerstick) 135 mg/dL 151 mg/dL 138 mg/dL 92 mg/dL Current Medications Medications (Trade) Dose Ordered Sig/Alexx Route PRN Reason Start Time Stop Time Status Last Admin Dose Admin Acetaminophen (Tylenol) 650 mg PRN Q6HRS PRN PO MILD PAIN / TEMP > 100.3'F 10/14/20 20:15 Apixaban (Eliquis) 5 mg BID PO 10/14/20 21:00 10/31/20 21:20 Aspirin (Aspirin Enteric Coated) 81 mg DAILY PO 10/15/20 09:00 10/31/20 08:27 Aspirin (Aspirin Enteric Coated) 81 mg DAILY PO 10/15/20 09:00 UNV Divalproex Sodium (Depakote Sprinkles) 500 mg 0900,1300,1700 PO 10/15/20 09:00 10/22/20 17:40 DC 10/22/20 13:11 Divalproex Sodium (Depakote Sprinkles) 750 mg HS PO 10/14/20 21:00 10/29/20 18:37 DC 10/28/20 20:58 Furosemide (Lasix) 20 mg DAILY PO 10/15/20 09:00 10/31/20 08:27 Gabapentin (Neurontin) 100 mg BID PO 10/14/20 21:00 10/30/20 16:03 DC 10/30/20 08:37 Acetaminophen/ Hydrocodone Bitart (Lortab 5/325) 1 tab PRN Q4HRS PRN PO MODERATE PAIN, SEVERE PAIN 10/14/20 20:15 10/24/20 17:49 Hydroxyzine HCl (Atarax) 25 mg PRN TID PRN PO ITCHING 10/14/20 21:00 10/30/20 22:43 Insulin Human Lispro (HumaLOG) 1 units TIDWMEALS SQ 10/15/20 08:00 Cancel Linagliptin (Tradjenta) 5 mg DAILY PO 10/15/20 09:00 10/31/20 08:28 Al Hydroxide/Mg Hydroxide (Mylanta Plus Xs) 15 ml PRN BFRMEALHC PRN PO DYSPEPSIA 10/14/20 20:15 Melatonin (Melatonin) 3 mg HS PO 10/14/20 21:00 10/31/20 21:20 Metformin HCl (Glucophage) 750 mg BIDWMEALS PO 10/15/20 08:00 10/31/20 17:12 Metoprolol Succinate (Toprol Xl) 50 mg DAILY PO 10/15/20 09:00 10/31/20 08:28 Nystatin (Nystop) 15 rocio BID TP 10/14/20 21:00 10/24/20 19:29 DC 10/24/20 09:30 Risperidone (RisperDAL) 0.5 mg BID PO 10/14/20 21:00 10/30/20 16:03 DC 10/30/20 08:35 Sertraline HCl (Zoloft) 50 mg DAILY PO 10/15/20 09:00 10/31/20 08:27 Atorvastatin Calcium (Lipitor) 40 mg QHS PO 10/14/20 21:00 10/31/20 21:20 Cyanocobalamin (Vitamin B-12) 500 mcg DAILY PO 10/15/20 09:00 10/31/20 08:27 Insulin Glargine (Lantus Syringe) 35 unit DAILY SQ 10/15/20 09:00 10/21/20 16:52 DC 10/21/20 10:03 Lactobacillus Rhamnosus (Culturelle) 1 cap DAILY PO 10/15/20 09:00 10/31/20 08:28 Magnesium Hydroxide (Milk Of Magnesia) 2,400 mg PRN DAILY PRN PO CONSTIPATION 10/14/20 21:00 10/25/20 20:04 Multi-Ingredient Ointment (Analgesic [place]) 1 rocio PRN Q6HRS PRN TP MUSCLE PAIN 10/14/20 21:00 Multivitamins/ Calcium (Thera-M Plus) 1 tab DAILY PO 10/15/20 09:00 10/31/20 08:28 Pantoprazole Sodium (Protonix) 40 mg BIDWMEALS PO 10/15/20 08:00 10/31/20 17:12 Potassium Chloride (Klor-Con) 10 meq DAILYWBKFT PO 10/15/20 08:00 10/31/20 08:29 Vitamin D (Vitamin D3) 500 unit DAILY PO 10/15/20 09:00 10/31/20 08:28 Acetaminophen (Tylenol) 650 mg PRN Q6HRS PRN PO MILD PAIN / TEMP > 100.3'F 10/14/20 23:15 10/14/20 23:34 DC Multi-Ingredient Ointment (Analgesic [place]) 1 rocio PRN QID PRN TP MUSCLE PAIN 10/14/20 23:15 10/16/20 08:37 DC Al Hydroxide/Mg Hydroxide (Mylanta Plus Xs) 15 ml PRN AFTMEALHC PRN PO DYSPEPSIA 10/14/20 23:15 10/14/20 23:39 DC Magnesium Hydroxide (Milk Of Magnesia) 2,400 mg PRN QHS PRN PO CONSTIPATION 10/14/20 23:15 10/14/20 23:39 DC Insulin Human Lispro (HumaLOG) 0-5 UNITS TIDWMEALS SQ 10/15/20 12:00 10/31/20 17:17 Ertapenem 1 gm/ Sodium Chloride 50 ml @ 100 mls/hr DAILY IV 10/20/20 09:00 10/28/20 22:00 DC 10/28/20 09:40 Insulin Glargine (Lantus Syringe) 20 unit DAILY SQ 10/21/20 17:00 10/31/20 09:20 Divalproex Sodium (Depakote Sprinkles) 500 mg 0900,1400 PO 10/23/20 09:00 10/29/20 18:37 DC 10/29/20 13:48 Nystatin (Nystop) 1 rocio BID TP 10/24/20 21:00 10/31/20 21:21 Divalproex Sodium (Depakote Sprinkles) 500 mg 0900,1400 PO 10/30/20 09:00 10/30/20 16:03 DC 10/30/20 12:45 Divalproex Sodium (Depakote Sprinkles) 750 mg HS PO 10/29/20 21:00 10/30/20 16:03 DC 10/29/20 20:27 Valproic Acid (Depakene) 750 mg QHS PO 10/30/20 21:00 10/31/20 15:02 DC 10/30/20 19:47 Valproic Acid (Depakene) 500 mg 0900,1400 PO 10/31/20 09:00 10/31/20 15:02 DC 10/31/20 13:36 Gabapentin (Neurontin Oral Soln) 100 mg BID PO 10/30/20 21:00 10/31/20 15:02 DC 10/31/20 08:26 Risperidone (RisperDAL) 0.5 mg BID PO 10/30/20 21:00 10/31/20 15:02 DC 10/31/20 08:29 Divalproex Sodium (Depakote Sprinkles) 750 mg HS PO 10/31/20 21:00 10/31/20 21:20 Divalproex Sodium (Depakote Sprinkles) 500 mg 0900,1400 PO 11/01/20 09:00 Risperidone (RisperDAL) 0.5 mg BID PO 10/31/20 21:00 10/31/20 21:20 Gabapentin (Neurontin) 100 mg BID PO 10/31/20 21:00 10/31/20 21:20 Current Medications Medications (Trade) Dose Ordered Sig/Alexx Route PRN Reason Start Time Stop Time Status Last Admin Dose Admin Valproic Acid (Depakene) 500 mg 0900,1400 PO 10/31/20 09:00 10/31/20 15:02 DC 10/31/20 13:36 Divalproex Sodium (Depakote Sprinkles) 750 mg HS PO 10/31/20 21:00 10/31/20 21:20 Risperidone (RisperDAL) 0.5 mg BID PO 10/31/20 21:00 10/31/20 21:20 Gabapentin (Neurontin) 100 mg BID PO 10/31/20 21:00 10/31/20 21:20 I have reviewed the current psychotropics carefully including drug interactions. Risk benefit ratio favors no change other than as noted in my dictated progress note. Diagnosis: Problems: (1) Schizoaffective disorder, bipolar type (2) Impulse control disorder, unspecified (3) Anxiety disorder, unspecified (4) Bipolar disorder, curr episode mixed, severe, with psychotic features CHAVO WANG MD Nov 01, 2020 07:23
[2020-11-01] MEDS: INSULIN LISPRO 300 UNITS/3 ML VIAL. SQ SCH ×3 (07:24→17:00)
[2020-11-01] MEDS: POTASSIUM CHLORIDE 10 MEQ TABLET.ER. PO SCH (08:04)
[2020-11-01] MEDS: risperiDONE 0.25 MG TABLET. PO SCH ×2 (08:04→20:15)
[2020-11-01] MEDS: CHOLECALCIFEROL (VITAMIN D3) 1,000 UNIT TABLET PO SCH (08:04)
[2020-11-01] MEDS: FUROSEMIDE 20 MG TABLET PO SCH (08:04)
[2020-11-01] MEDS: LACTOBACILLUS RHAMNOSUS GG 1 CAPSULE. PO SCH (08:05)
[2020-11-01] MEDS: MULTIVITAMIN with MINERAL TABLET. PO SCH (08:05)
[2020-11-01] MEDS: metFORMIN 500 MG TABLET PO SCH ×2 (08:05→17:29)
[2020-11-01] MEDS: CYANOCOBALAMIN (VITAMIN B-12) 250 MCG TABLET. PO SCH (08:06)
[2020-11-01] MEDS: LINAGLIPTIN 5 MG TABLET PO SCH (08:06)
[2020-11-01] MEDS: ASPIRIN ENTERIC COATED 81 MG TABLET.DR. PO SCH (08:06)
[2020-11-01] MEDS: METOPROLOL SUCC 24HR ER 50 MG TAB.ER.24H. PO SCH (08:06)
[2020-11-01] MEDS: SERTRALINE 50 MG TABLET. PO SCH (08:07)
[2020-11-01] MEDS: GABAPENTIN 100 MG CAPSULE. PO SCH ×2 (08:07→20:16)
[2020-11-01] MEDS: PANTOPRAZOLE 40 MG TABLET. PO SCH ×2 (08:07→17:29)
[2020-11-01] MEDS: APIXABAN 5 MG TABLET. PO SCH ×2 (08:07→20:15)
[2020-11-01] MEDS: NYSTATIN TOPICAL POWDER 15GM BOTTLE. TP SCH ×2 (08:07→20:16)
[2020-11-01] MEDS: DIVALPROEX 125 MG CAP.SPRINK PO SCH ×3 (08:07→20:15)
--- NOTE | 2020-11-01 08:42 | NUR ---
Nursing note: Pt in dining room at time of AM med pass and assessment. She is pleasant, med compliant and cooperative. Pt denies having any pain/concerns. Will continue to monitor.
[2020-11-01] MEDS: INSULIN GLARGINE SYRINGE. SQ SCH (08:50)
--- NOTE | 2020-11-01 10:56 | TX PLAN ---
Interdisciplinary Tx Plan Admission Information October 14, 2020 at 07:30 Legal Status (on Admission): Voluntary DPOA/Guardian Name: Jerman Carrera Contact Other Contact Name: [facility] Other Contact Verified Code Status: Full Code Allergies: Coded Allergies: I S O L A T I O N *CONTACT* (Verified Allergy, Unknown, 06/21/20) ESBL amoxicillin (Verified Allergy, Unknown, 06/16/20) clavulanic acid (Verified Allergy, Unknown, 06/16/20) doxycycline (Verified Allergy, Unknown, 06/16/20) Diagnoses Primary Diagnosis: Schizoaffective D/O, Bipolar type Reasons for Admission: Aggressive, Angry, Combative, Confusion/Disoriented Problem in Patient's Words: Needs further medication evaluation Additional Admission Comments: According to the intake pt is refusing showers and baths, threatening to kick other's asses, yelling out, name calling peers, belligerent, verbally aggressive, cursing, socially disruptive, agitated, bangs on the duncan, throwing things during outbursts. Problems Active Problems: Agitated possible UTI attention-seeking Inactive Problems: medication mgmt redirectable Pt Strengths/Limitations Ability for [place]: Poor Cognitive Functioning/Ability: Poor Communication Skills/Ability: Fair Financial Resources: Fair Insight/Judgement: Poor Intellectual Ability: Fair Physical Health: Poor Social Skills: Fair Stability in Family: Good Stability in School/Work: Poor Verbal Skills: Fair Discharge Criteria Discharge Criteria: No need for close observ., Adequate arrangements @DC, Improved behavior, Improved mood/thought Preliminary Discharge Plan Preliminary DC Plan: Current Living Arrange. Special Precautions Fall Risk: Moderate Initial D/C Plan Pt to return to [facility] once stable Identified Discharge Needs: Psychiatric services Currently Utilized Resources Currently Utilized Resources/P: Primary Care physician Identified Problems/Hx/Goals Objectives/Short-Term Goals Short Term Goals: Dec. Aggression, Dec. Hallucination/Delus, Dec. Outbursts, Improved Social Skills, Promote Coping Skill Short Term Goals in Patient's: NA Interventions/Frequency Staff Interventions/Frequency&: Psychiatrist to assess pt at least 3x per week for medication mgmt. Social Work to assess pt at least 2x per week to identify barriers to care and discharge planning. Nursing to assess medication effects, behavior management and completion of 15 minute checks daily. Encourage participation in group activities (if applicable) or 1:1 engagement based off Activity Dept goals. 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 Education: Pt graduated High School (12th grade) and attended college in [place]. Pt has a Bachelors and Masters in Business Administration. 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 Pt is compliant with medications, mostly either crushed or in liquid form. Pt does intermittently yell during cares but is redirectable. Pt has completed her antibiotic for her UTI and has been able to be out with the rest of pt peers. No behaviors have been noted. Pt is able to return to [facility] without a Level II option. SW will work with pt brother Jerman and the facility on making t hose arrangements. JEANNIE ROMERO Nov 01, 2020 10:56
--- NOTE | 2020-11-01 10:59 | NUR ---
Treatment team note: Pt is eating roughly 75% of meals and sleeping on average 7 hours per night. Pt is compliant with medications, mostly either crushed or in liquid form. Pt does intermittently yell during cares but is redirectable. Pt has completed her antibiotic for her UTI and has been able to be out with the rest of pt peers. No behaviors have been noted. Pt is able to return to [facility] without a Level II option. SW will work with pt brother Jerman and the facility on making those arrangements.
[2020-11-01 15:28] VITALS: BP 101/67
--- NOTE | 2020-11-01 16:00 | NUR ---
KEITH faxed over updated notes for Lucy Murry to review.
--- NOTE | 2020-11-01 16:15 | NUR ---
Wound/Ostomy Care Wound Type/Assessment: Patient seen for follow up per wound care. See wound assessment. 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 Patient also has area of redness surrounding the wound most likely IAD. Wound cleansed, assessed, measured, and pictured. Wound has deteriorated since last assessment. Patient is incontinent and brief changed at this time. Treatment Recommendations/Plan: Recommendations to switch to A&D ointment to be applied BID PRN and with every brief change. Patient to be turned every 2 hours as well. A&D ointment applied at this time. Patient should only be in the wheelchair for meals, considering wound has worsened. Education provided: Patient educated on turning and PU treatment and managment, but will need reinforcement due to mental status. Offloading surface/device: Patient to turn every 2 hours and for purple wedge to be used when turning. We placed a wheelchair cushion in her chair along with a new wedge for turning. Recommended Referrals/Tests: N/A Discharge Recommendations for dressings: Dressing change instructions left at nursing station and placed in chart. Wound care will follow up in one week for reassessment.
[2020-11-01] MEDS: hydrOXYzine HCL 25 MG TABLET PO PRN (20:15)
[2020-11-01] MEDS: MELATONIN 3 MG TABLET PO SCH (20:15)
[2020-11-01] MEDS: ATORVASTATIN CALCIUM 20 MG TABLET PO SCH (20:15)
--- NOTE | 2020-11-01 22:01 | PDOC ---
Exam Note: Edgar Note: Please also refer to the separate dictated note~for this date of service dictated separately.~Patient seen individually. Discussed the patient with Nursing staff reviewed the chart.~Reviewed interim history and current functioning. Reviewed vital signs,~Labs/ Radiology~and current medications noted below. Continue current treatment with the changes noted in the dictated addendum note Assessment: Vital Signs/I&O: Vital Signs Date Time Temp Pulse Resp B/P (MAP) Pulse Ox O2 Delivery O2 Flow Rate FiO2 11/01/20 15:28 97.9 73 18 101/67 (78) 97 11/01/20 05:57 Room Air I & O 10/31/20 10/31/20 11/01/20 15:00 23:00 07:00 Intake Total 600 ml 240 ml 120 ml Balance 600 ml 240 ml 120 ml Labs: Laboratory Tests Test 11/01/20 07:15 11/01/20 11:21 11/01/20 16:57 11/01/20 19:01 Glucose (Fingerstick) 92 mg/dL (70-99) 136 mg/dL (70-99) H 130 mg/dL (70-99) H 165 mg/dL (70-99) H Current Medications: Meds: Laboratory Tests Test 11/01/20 07:15 11/01/20 11:21 11/01/20 16:57 11/01/20 19:01 Glucose (Fingerstick) 92 mg/dL 136 mg/dL 130 mg/dL 165 mg/dL Current Medications Medications (Trade) Dose Ordered Sig/Alexx Route PRN Reason Start Time Stop Time Status Last Admin Dose Admin Acetaminophen (Tylenol) 650 mg PRN Q6HRS PRN PO MILD PAIN / TEMP > 100.3'F 10/14/20 20:15 Apixaban (Eliquis) 5 mg BID PO 10/14/20 21:00 11/01/20 20:15 Aspirin (Aspirin Enteric Coated) 81 mg DAILY PO 10/15/20 09:00 11/01/20 08:06 Aspirin (Aspirin Enteric Coated) 81 mg DAILY PO 10/15/20 09:00 UNV Divalproex Sodium (Depakote Sprinkles) 500 mg 0900,1300,1700 PO 10/15/20 09:00 10/22/20 17:40 DC 10/22/20 13:11 Divalproex Sodium (Depakote Sprinkles) 750 mg HS PO 10/14/20 21:00 10/29/20 18:37 DC 10/28/20 20:58 Furosemide (Lasix) 20 mg DAILY PO 10/15/20 09:00 11/01/20 08:04 Gabapentin (Neurontin) 100 mg BID PO 10/14/20 21:00 10/30/20 16:03 DC 10/30/20 08:37 Acetaminophen/ Hydrocodone Bitart (Lortab 5/325) 1 tab PRN Q4HRS PRN PO MODERATE PAIN, SEVERE PAIN 10/14/20 20:15 10/24/20 17:49 Hydroxyzine HCl (Atarax) 25 mg PRN TID PRN PO ITCHING 10/14/20 21:00 11/01/20 20:15 Insulin Human Lispro (HumaLOG) 1 units TIDWMEALS SQ 10/15/20 08:00 Cancel Linagliptin (Tradjenta) 5 mg DAILY PO 10/15/20 09:00 11/01/20 08:06 Al Hydroxide/Mg Hydroxide (Mylanta Plus Xs) 15 ml PRN BFRMEALHC PRN PO DYSPEPSIA 10/14/20 20:15 Melatonin (Melatonin) 3 mg HS PO 10/14/20 21:00 11/01/20 20:15 Metformin HCl (Glucophage) 750 mg BIDWMEALS PO 10/15/20 08:00 11/01/20 17:29 Metoprolol Succinate (Toprol Xl) 50 mg DAILY PO 10/15/20 09:00 11/01/20 08:06 Nystatin (Nystop) 15 rocio BID TP 10/14/20 21:00 10/24/20 19:29 DC 10/24/20 09:30 Risperidone (RisperDAL) 0.5 mg BID PO 10/14/20 21:00 10/30/20 16:03 DC 10/30/20 08:35 Sertraline HCl (Zoloft) 50 mg DAILY PO 10/15/20 09:00 11/01/20 08:07 Atorvastatin Calcium (Lipitor) 40 mg QHS PO 10/14/20 21:00 11/01/20 20:15 Cyanocobalamin (Vitamin B-12) 500 mcg DAILY PO 10/15/20 09:00 11/01/20 08:06 Insulin Glargine (Lantus Syringe) 35 unit DAILY SQ 10/15/20 09:00 10/21/20 16:52 DC 10/21/20 10:03 Lactobacillus Rhamnosus (Culturelle) 1 cap DAILY PO 10/15/20 09:00 11/01/20 08:05 Magnesium Hydroxide (Milk Of Magnesia) 2,400 mg PRN DAILY PRN PO CONSTIPATION 10/14/20 21:00 10/25/20 20:04 Multi-Ingredient Ointment (Analgesic Lancing) 1 rocio PRN Q6HRS PRN TP MUSCLE PAIN 10/14/20 21:00 Multivitamins/ Calcium (Thera-M Plus) 1 tab DAILY PO 10/15/20 09:00 11/01/20 08:05 Pantoprazole Sodium (Protonix) 40 mg BIDWMEALS PO 10/15/20 08:00 11/01/20 17:29 Potassium Chloride (Klor-Con) 10 meq DAILYWBKFT PO 10/15/20 08:00 11/01/20 08:04 Vitamin D (Vitamin D3) 500 unit DAILY PO 10/15/20 09:00 11/01/20 08:04 Acetaminophen (Tylenol) 650 mg PRN Q6HRS PRN PO MILD PAIN / TEMP > 100.3'F 10/14/20 23:15 10/14/20 23:34 DC Multi-Ingredient Ointment (Analgesic [place]) 1 rocio PRN QID PRN TP MUSCLE PAIN 10/14/20 23:15 10/16/20 08:37 DC Al Hydroxide/Mg Hydroxide (Mylanta Plus Xs) 15 ml PRN AFTMEALHC PRN PO DYSPEPSIA 10/14/20 23:15 10/14/20 23:39 DC Magnesium Hydroxide (Milk Of Magnesia) 2,400 mg PRN QHS PRN PO CONSTIPATION 10/14/20 23:15 10/14/20 23:39 DC Insulin Human Lispro (HumaLOG) 0-5 UNITS TIDWMEALS SQ 10/15/20 12:00 10/31/20 17:17 Ertapenem 1 gm/ Sodium Chloride 50 ml @ 100 mls/hr DAILY IV 10/20/20 09:00 10/28/20 22:00 DC 10/28/20 09:40 Insulin Glargine (Lantus Syringe) 20 unit DAILY SQ 10/21/20 17:00 11/01/20 08:50 Divalproex Sodium (Depakote Sprinkles) 500 mg 0900,1400 PO 10/23/20 09:00 10/29/20 18:37 DC 10/29/20 13:48 Nystatin (Nystop) 1 rocio BID TP 10/24/20 21:00 11/01/20 20:16 Divalproex Sodium (Depakote Sprinkles) 500 mg 0900,1400 PO 10/30/20 09:00 10/30/20 16:03 DC 10/30/20 12:45 Divalproex Sodium (Depakote Sprinkles) 750 mg HS PO 10/29/20 21:00 10/30/20 16:03 DC 10/29/20 20:27 Valproic Acid (Depakene) 750 mg QHS PO 10/30/20 21:00 10/31/20 15:02 DC 10/30/20 19:47 Valproic Acid (Depakene) 500 mg 0900,1400 PO 10/31/20 09:00 10/31/20 15:02 DC 10/31/20 13:36 Gabapentin (Neurontin Oral Soln) 100 mg BID PO 10/30/20 21:00 10/31/20 15:02 DC 10/31/20 08:26 Risperidone (RisperDAL) 0.5 mg BID PO 10/30/20 21:00 10/31/20 15:02 DC 10/31/20 08:29 Divalproex Sodium (Depakote Sprinkles) 750 mg HS PO 10/31/20 21:00 11/01/20 20:15 Divalproex Sodium (Depakote Sprinkles) 500 mg 0900,1400 PO 11/01/20 09:00 11/01/20 13:42 Risperidone (RisperDAL) 0.5 mg BID PO 10/31/20 21:00 11/01/20 20:15 Gabapentin (Neurontin) 100 mg BID PO 10/31/20 21:00 11/01/20 20:16 Current Medications Medications (Trade) Dose Ordered Sig/Alexx Route PRN Reason Start Time Stop Time Status Last Admin Dose Admin Divalproex Sodium (Depakote Sprinkles) 500 mg 0900,1400 PO 11/01/20 09:00 11/01/20 13:42 I have reviewed the current psychotropics carefully including drug interactions. Risk benefit ratio favors no change other than as noted in my dictated progress note. Diagnosis: Problems: (1) Schizoaffective disorder, bipolar type (2) Impulse control disorder, unspecified (3) Anxiety disorder, unspecified (4) Bipolar disorder, curr episode mixed, severe, with psychotic features CHAVO WANG MD Nov 01, 2020 22:01
--- NOTE | 2020-11-01 23:03 | NUR ---
Pt sitting up in WC in day room watching a movie when approached for assessment. Pt pleasant and cooperative, interacting appropriately. Pt took meds crushed in applesauce, tolerated well. Pt became resistive and verbally aggressive when [employer] staff were assisting with HS cares. Pt soiled with urine and feces and did not want to be changed. Pt not easily redirected.
[2020-11-02 06:04] VITALS: BP 119/71
[2020-11-02] MEDS: INSULIN LISPRO 300 UNITS/3 ML VIAL. SQ SCH ×3 (08:00→17:00)
[2020-11-02] MEDS: LINAGLIPTIN 5 MG TABLET PO SCH (08:19)
[2020-11-02] MEDS: risperiDONE 0.25 MG TABLET. PO SCH ×2 (08:19→20:34)
[2020-11-02] MEDS: PANTOPRAZOLE 40 MG TABLET. PO SCH ×2 (08:19→16:50)
[2020-11-02] MEDS: METOPROLOL SUCC 24HR ER 50 MG TAB.ER.24H. PO SCH (08:19)
[2020-11-02] MEDS: metFORMIN 500 MG TABLET PO SCH ×2 (08:19→16:50)
[2020-11-02] MEDS: SERTRALINE 50 MG TABLET. PO SCH (08:20)
[2020-11-02] MEDS: LACTOBACILLUS RHAMNOSUS GG 1 CAPSULE. PO SCH (08:20)
[2020-11-02] MEDS: FUROSEMIDE 20 MG TABLET PO SCH (08:20)
[2020-11-02] MEDS: GABAPENTIN 100 MG CAPSULE. PO SCH ×2 (08:21→20:34)
[2020-11-02] MEDS: CHOLECALCIFEROL (VITAMIN D3) 1,000 UNIT TABLET PO SCH (08:21)
[2020-11-02] MEDS: ASPIRIN ENTERIC COATED 81 MG TABLET.DR. PO SCH (08:21)
[2020-11-02] MEDS: MULTIVITAMIN with MINERAL TABLET. PO SCH (08:21)
[2020-11-02] MEDS: DIVALPROEX 125 MG CAP.SPRINK PO SCH ×3 (08:21→20:33)
[2020-11-02] MEDS: APIXABAN 5 MG TABLET. PO SCH ×2 (08:21→20:33)
[2020-11-02] MEDS: POTASSIUM CHLORIDE 10 MEQ TABLET.ER. PO SCH (08:21)
[2020-11-02] MEDS: NYSTATIN TOPICAL POWDER 15GM BOTTLE. TP SCH ×2 (08:22→20:34)
[2020-11-02] MEDS: CYANOCOBALAMIN (VITAMIN B-12) 250 MCG TABLET. PO SCH (08:22)
[2020-11-02] MEDS: INSULIN GLARGINE SYRINGE. SQ SCH (09:00)
[2020-11-02] MEDS: VITS A & D/LANOLIN TOPICAL OINTMENT 42GM TUBE. TP SCH ×2 (11:30→18:00)
--- NOTE | 2020-11-02 13:06 | NUR ---
Nursing note: Pt was in the dining room at time of AM med pass and assessment. She is pleasant, compliant with meds crushed and cooperative with assessment. Pt has no complaints of pain/concerns. She is currently sitting quietly in the day room. Will continue to monitor.
[2020-11-02 15:53] VITALS: BP 100/68
[2020-11-02] MEDS: MELATONIN 3 MG TABLET PO SCH (20:34)
[2020-11-02] MEDS: ATORVASTATIN CALCIUM 20 MG TABLET PO SCH (20:34)
--- NOTE | 2020-11-02 21:52 | PDOC ---
Exam Note: Edgar Note: Please also refer to the separate dictated note~for this date of service dictated separately.~Patient seen individually. Discussed the patient with Nursing staff reviewed the chart.~Reviewed interim history and current functioning. Reviewed vital signs,~Labs/ Radiology~and current medications noted below. Continue current treatment with the changes noted in the dictated addendum note Assessment: Vital Signs/I&O: Vital Signs Date Time Temp Pulse Resp B/P (MAP) Pulse Ox O2 Delivery O2 Flow Rate FiO2 11/02/20 15:53 97.0 77 18 100/68 (79) 98 11/02/20 06:04 Room Air I & O 11/01/20 11/01/20 11/02/20 15:00 23:00 07:00 Intake Total 720 ml 720 ml Balance 720 ml 720 ml Labs: Laboratory Tests Test 11/02/20 07:43 11/02/20 12:09 11/02/20 17:14 11/02/20 19:15 Glucose (Fingerstick) 100 mg/dL (70-99) H 83 mg/dL (70-99) 101 mg/dL (70-99) H 157 mg/dL (70-99) H Current Medications: Meds: Laboratory Tests Test 11/02/20 07:43 11/02/20 12:09 11/02/20 17:14 11/02/20 19:15 Glucose (Fingerstick) 100 mg/dL 83 mg/dL 101 mg/dL 157 mg/dL Current Medications Medications (Trade) Dose Ordered Sig/Alexx Route PRN Reason Start Time Stop Time Status Last Admin Dose Admin Acetaminophen (Tylenol) 650 mg PRN Q6HRS PRN PO MILD PAIN / TEMP > 100.3'F 10/14/20 20:15 Apixaban (Eliquis) 5 mg BID PO 10/14/20 21:00 11/02/20 20:33 Aspirin (Aspirin Enteric Coated) 81 mg DAILY PO 10/15/20 09:00 11/02/20 08:21 Aspirin (Aspirin Enteric Coated) 81 mg DAILY PO 10/15/20 09:00 UNV Divalproex Sodium (Depakote Sprinkles) 500 mg 0900,1300,1700 PO 10/15/20 09:00 10/22/20 17:40 DC 10/22/20 13:11 Divalproex Sodium (Depakote Sprinkles) 750 mg HS PO 10/14/20 21:00 10/29/20 18:37 DC 10/28/20 20:58 Furosemide (Lasix) 20 mg DAILY PO 10/15/20 09:00 11/02/20 08:20 Gabapentin (Neurontin) 100 mg BID PO 10/14/20 21:00 10/30/20 16:03 DC 10/30/20 08:37 Acetaminophen/ Hydrocodone Bitart (Lortab 5/325) 1 tab PRN Q4HRS PRN PO MODERATE PAIN, SEVERE PAIN 10/14/20 20:15 10/24/20 17:49 Hydroxyzine HCl (Atarax) 25 mg PRN TID PRN PO ITCHING 10/14/20 21:00 11/01/20 20:15 Insulin Human Lispro (HumaLOG) 1 units TIDWMEALS SQ 10/15/20 08:00 Cancel Linagliptin (Tradjenta) 5 mg DAILY PO 10/15/20 09:00 11/02/20 08:19 Al Hydroxide/Mg Hydroxide (Mylanta Plus Xs) 15 ml PRN BFRMEALHC PRN PO DYSPEPSIA 10/14/20 20:15 Melatonin (Melatonin) 3 mg HS PO 10/14/20 21:00 11/02/20 20:34 Metformin HCl (Glucophage) 750 mg BIDWMEALS PO 10/15/20 08:00 11/02/20 16:50 Metoprolol Succinate (Toprol Xl) 50 mg DAILY PO 10/15/20 09:00 11/02/20 08:19 Nystatin (Nystop) 15 rocio BID TP 10/14/20 21:00 10/24/20 19:29 DC 10/24/20 09:30 Risperidone (RisperDAL) 0.5 mg BID PO 10/14/20 21:00 10/30/20 16:03 DC 10/30/20 08:35 Sertraline HCl (Zoloft) 50 mg DAILY PO 10/15/20 09:00 11/02/20 08:20 Atorvastatin Calcium (Lipitor) 40 mg QHS PO 10/14/20 21:00 11/02/20 20:34 Cyanocobalamin (Vitamin B-12) 500 mcg DAILY PO 10/15/20 09:00 11/02/20 08:22 Insulin Glargine (Lantus Syringe) 35 unit DAILY SQ 10/15/20 09:00 10/21/20 16:52 DC 10/21/20 10:03 Lactobacillus Rhamnosus (Culturelle) 1 cap DAILY PO 10/15/20 09:00 11/02/20 08:20 Magnesium Hydroxide (Milk Of Magnesia) 2,400 mg PRN DAILY PRN PO CONSTIPATION 10/14/20 21:00 10/25/20 20:04 Multi-Ingredient Ointment (Analgesic [place]) 1 rocio PRN Q6HRS PRN TP MUSCLE PAIN 10/14/20 21:00 Multivitamins/ Calcium (Thera-M Plus) 1 tab DAILY PO 10/15/20 09:00 11/02/20 08:21 Pantoprazole Sodium (Protonix) 40 mg BIDWMEALS PO 10/15/20 08:00 11/02/20 16:50 Potassium Chloride (Klor-Con) 10 meq DAILYWBKFT PO 10/15/20 08:00 11/02/20 08:21 Vitamin D (Vitamin D3) 500 unit DAILY PO 10/15/20 09:00 11/02/20 08:21 Acetaminophen (Tylenol) 650 mg PRN Q6HRS PRN PO MILD PAIN / TEMP > 100.3'F 10/14/20 23:15 10/14/20 23:34 DC Multi-Ingredient Ointment (Analgesic [place]) 1 rocio PRN QID PRN TP MUSCLE PAIN 10/14/20 23:15 10/16/20 08:37 DC Al Hydroxide/Mg Hydroxide (Mylanta Plus Xs) 15 ml PRN AFTMEALHC PRN PO DYSPEPSIA 10/14/20 23:15 10/14/20 23:39 DC Magnesium Hydroxide (Milk Of Magnesia) 2,400 mg PRN QHS PRN PO CONSTIPATION 10/14/20 23:15 10/14/20 23:39 DC Insulin Human Lispro (HumaLOG) 0-5 UNITS TIDWMEALS SQ 10/15/20 12:00 10/31/20 17:17 Ertapenem 1 gm/ Sodium Chloride 50 ml @ 100 mls/hr DAILY IV 10/20/20 09:00 10/28/20 22:00 DC 10/28/20 09:40 Insulin Glargine (Lantus Syringe) 20 unit DAILY SQ 10/21/20 17:00 11/01/20 08:50 Divalproex Sodium (Depakote Sprinkles) 500 mg 0900,1400 PO 10/23/20 09:00 10/29/20 18:37 DC 10/29/20 13:48 Nystatin (Nystop) 1 rocio BID TP 10/24/20 21:00 11/02/20 20:34 Divalproex Sodium (Depakote Sprinkles) 500 mg 0900,1400 PO 10/30/20 09:00 10/30/20 16:03 DC 10/30/20 12:45 Divalproex Sodium (Depakote Sprinkles) 750 mg HS PO 10/29/20 21:00 10/30/20 16:03 DC 10/29/20 20:27 Valproic Acid (Depakene) 750 mg QHS PO 10/30/20 21:00 10/31/20 15:02 DC 10/30/20 19:47 Valproic Acid (Depakene) 500 mg 0900,1400 PO 10/31/20 09:00 10/31/20 15:02 DC 10/31/20 13:36 Gabapentin (Neurontin Oral Soln) 100 mg BID PO 10/30/20 21:00 10/31/20 15:02 DC 10/31/20 08:26 Risperidone (RisperDAL) 0.5 mg BID PO 10/30/20 21:00 10/31/20 15:02 DC 10/31/20 08:29 Divalproex Sodium (Depakote Sprinkles) 750 mg HS PO 10/31/20 21:00 11/02/20 20:33 Divalproex Sodium (Depakote Sprinkles) 500 mg 0900,1400 PO 11/01/20 09:00 11/02/20 14:32 Risperidone (RisperDAL) 0.5 mg BID PO 10/31/20 21:00 11/02/20 20:34 Gabapentin (Neurontin) 100 mg BID PO 10/31/20 21:00 11/02/20 20:34 Vitamin A/Vitamin D (Vitamin A & D Ointment) 1 rocio BID76 TP 11/02/20 11:30 I have reviewed the current psychotropics carefully including drug interactions. Risk benefit ratio favors no change other than as noted in my dictated progress note. Diagnosis: Problems: (1) Schizoaffective disorder, bipolar type (2) Impulse control disorder, unspecified (3) Anxiety disorder, unspecified (4) Bipolar disorder, curr episode mixed, severe, with psychotic features (5) UTI due to extended-spectrum beta lactamase (ESBL) producing Escherichia coli CHAVO WANG MD Nov 02, 2020 21:52
[2020-11-03] MEDS: VITS A & D/LANOLIN TOPICAL OINTMENT 42GM TUBE. TP SCH ×2 (05:50→17:31)
[2020-11-03 05:57] VITALS: BP 126/72
[2020-11-03] MEDS: LINAGLIPTIN 5 MG TABLET PO SCH (08:47)
[2020-11-03] MEDS: APIXABAN 5 MG TABLET. PO SCH ×2 (08:47→20:20)
[2020-11-03] MEDS: PANTOPRAZOLE 40 MG TABLET. PO SCH ×2 (08:47→17:30)
[2020-11-03] MEDS: POTASSIUM CHLORIDE 10 MEQ TABLET.ER. PO SCH (08:47)
[2020-11-03] MEDS: SERTRALINE 50 MG TABLET. PO SCH (08:47)
[2020-11-03] MEDS: CYANOCOBALAMIN (VITAMIN B-12) 250 MCG TABLET. PO SCH (08:47)
[2020-11-03] MEDS: CHOLECALCIFEROL (VITAMIN D3) 1,000 UNIT TABLET PO SCH (08:47)
[2020-11-03] MEDS: FUROSEMIDE 20 MG TABLET PO SCH (08:47)
[2020-11-03] MEDS: risperiDONE 0.25 MG TABLET. PO SCH ×2 (08:47→20:20)
[2020-11-03] MEDS: LACTOBACILLUS RHAMNOSUS GG 1 CAPSULE. PO SCH (08:47)
[2020-11-03] MEDS: metFORMIN 500 MG TABLET PO SCH ×2 (08:48→17:30)
[2020-11-03] MEDS: ASPIRIN ENTERIC COATED 81 MG TABLET.DR. PO SCH (08:48)
[2020-11-03] MEDS: METOPROLOL SUCC 24HR ER 50 MG TAB.ER.24H. PO SCH (08:48)
[2020-11-03] MEDS: DIVALPROEX 125 MG CAP.SPRINK PO SCH ×3 (08:49→20:20)
[2020-11-03] MEDS: MULTIVITAMIN with MINERAL TABLET. PO SCH (08:51)
[2020-11-03] MEDS: NYSTATIN TOPICAL POWDER 15GM BOTTLE. TP SCH ×2 (08:51→20:20)
[2020-11-03] MEDS: GABAPENTIN 100 MG CAPSULE. PO SCH ×2 (08:51→20:21)
[2020-11-03] MEDS: INSULIN LISPRO 300 UNITS/3 ML VIAL. SQ SCH ×3 (08:52→17:31)
--- NOTE | 2020-11-03 09:20 | PDOC ---
Exam Note: Edgar Note: This note is a late entry for 11/01/2020 covers elements not covered in my initial note. Subjective: The patient was seen individually in the evening of 11/01/2020 with Treasure MELGAR, discussed and reviewed the chart. She slept 7 hours previous night. I met with her in her room. Previous evening her medications were given floated to her in apple sauce. She is trying to pocket her medications. No yelling however. Review of Systems: Ambulation impaired in wheelchair. No CV, , pulmonary, eye system symptoms on review. Mental Status Exam: The patient is reasonably oriented to herself. Speech is coherent. Abstraction is fair. Computation impaired. Language function intact. Attention span short. Mood and affect labile. Laboratory Data: Reviewed. Impression: Schizoaffective disorder bipolar type. Impulse control disorder unspecified. Anxiety disorder unspecified. Plan: Continue rest of the psychotropics unchanged. Assessment: Vital Signs/I&O: Vital Signs Date Time Temp Pulse Resp B/P (MAP) Pulse Ox O2 Delivery O2 Flow Rate FiO2 11/03/20 08:48 68 126/72 11/03/20 05:57 97.3 16 95 11/02/20 06:04 Room Air I & O 11/02/20 11/02/20 11/03/20 15:00 23:00 07:00 Intake Total 480 ml 680 ml Balance 480 ml 680 ml Labs: Laboratory Tests Test 11/02/20 12:09 11/02/20 17:14 11/02/20 19:15 11/03/20 07:55 Glucose (Fingerstick) 83 mg/dL (70-99) 101 mg/dL (70-99) H 157 mg/dL (70-99) H 96 mg/dL (70-99) Current Medications: Meds: Laboratory Tests Test 11/02/20 12:09 11/02/20 17:14 11/02/20 19:15 11/03/20 07:55 Glucose (Fingerstick) 83 mg/dL 101 mg/dL 157 mg/dL 96 mg/dL Current Medications Medications (Trade) Dose Ordered Sig/Alexx Route PRN Reason Start Time Stop Time Status Last Admin Dose Admin Acetaminophen (Tylenol) 650 mg PRN Q6HRS PRN PO MILD PAIN / TEMP > 100.3'F 10/14/20 20:15 Apixaban (Eliquis) 5 mg BID PO 10/14/20 21:00 11/03/20 08:47 Aspirin (Aspirin Enteric Coated) 81 mg DAILY PO 10/15/20 09:00 11/03/20 08:48 Aspirin (Aspirin Enteric Coated) 81 mg DAILY PO 10/15/20 09:00 UNV Divalproex Sodium (Depakote Sprinkles) 500 mg 0900,1300,1700 PO 10/15/20 09:00 10/22/20 17:40 DC 10/22/20 13:11 Divalproex Sodium (Depakote Sprinkles) 750 mg HS PO 10/14/20 21:00 10/29/20 18:37 DC 10/28/20 20:58 Furosemide (Lasix) 20 mg DAILY PO 10/15/20 09:00 11/03/20 08:47 Gabapentin (Neurontin) 100 mg BID PO 10/14/20 21:00 10/30/20 16:03 DC 10/30/20 08:37 Acetaminophen/ Hydrocodone Bitart (Lortab 5/325) 1 tab PRN Q4HRS PRN PO MODERATE PAIN, SEVERE PAIN 10/14/20 20:15 10/24/20 17:49 Hydroxyzine HCl (Atarax) 25 mg PRN TID PRN PO ITCHING 10/14/20 21:00 11/01/20 20:15 Insulin Human Lispro (HumaLOG) 1 units TIDWMEALS SQ 10/15/20 08:00 Cancel Linagliptin (Tradjenta) 5 mg DAILY PO 10/15/20 09:00 11/03/20 08:47 Al Hydroxide/Mg Hydroxide (Mylanta Plus Xs) 15 ml PRN BFRMEALHC PRN PO DYSPEPSIA 10/14/20 20:15 Melatonin (Melatonin) 3 mg HS PO 10/14/20 21:00 11/02/20 20:34 Metformin HCl (Glucophage) 750 mg BIDWMEALS PO 10/15/20 08:00 11/03/20 08:48 Metoprolol Succinate (Toprol Xl) 50 mg DAILY PO 10/15/20 09:00 11/03/20 08:48 Nystatin (Nystop) 15 rocio BID TP 10/14/20 21:00 10/24/20 19:29 DC 10/24/20 09:30 Risperidone (RisperDAL) 0.5 mg BID PO 10/14/20 21:00 10/30/20 16:03 DC 10/30/20 08:35 Sertraline HCl (Zoloft) 50 mg DAILY PO 10/15/20 09:00 11/03/20 08:47 Atorvastatin Calcium (Lipitor) 40 mg QHS PO 10/14/20 21:00 11/02/20 20:34 Cyanocobalamin (Vitamin B-12) 500 mcg DAILY PO 10/15/20 09:00 11/03/20 08:47 Insulin Glargine (Lantus Syringe) 35 unit DAILY SQ 10/15/20 09:00 10/21/20 16:52 DC 10/21/20 10:03 Lactobacillus Rhamnosus (Culturelle) 1 cap DAILY PO 10/15/20 09:00 11/03/20 08:47 Magnesium Hydroxide (Milk Of Magnesia) 2,400 mg PRN DAILY PRN PO CONSTIPATION 10/14/20 21:00 10/25/20 20:04 Multi-Ingredient Ointment (Analgesic [place]) 1 rocio PRN Q6HRS PRN TP MUSCLE PAIN 10/14/20 21:00 Multivitamins/ Calcium (Thera-M Plus) 1 tab DAILY PO 10/15/20 09:00 11/03/20 08:51 Pantoprazole Sodium (Protonix) 40 mg BIDWMEALS PO 10/15/20 08:00 11/03/20 08:47 Potassium Chloride (Klor-Con) 10 meq DAILYWBKFT PO 10/15/20 08:00 11/03/20 08:47 Vitamin D (Vitamin D3) 500 unit DAILY PO 10/15/20 09:00 11/03/20 08:47 Acetaminophen (Tylenol) 650 mg PRN Q6HRS PRN PO MILD PAIN / TEMP > 100.3'F 10/14/20 23:15 10/14/20 23:34 DC Multi-Ingredient Ointment (Analgesic [place]) 1 rocio PRN QID PRN TP MUSCLE PAIN 10/14/20 23:15 10/16/20 08:37 DC Al Hydroxide/Mg Hydroxide (Mylanta Plus Xs) 15 ml PRN AFTMEALHC PRN PO DYSPEPSIA 10/14/20 23:15 10/14/20 23:39 DC Magnesium Hydroxide (Milk Of Magnesia) 2,400 mg PRN QHS PRN PO CONSTIPATION 10/14/20 23:15 10/14/20 23:39 DC Insulin Human Lispro (HumaLOG) 0-5 UNITS TIDWMEALS SQ 10/15/20 12:00 10/31/20 17:17 Ertapenem 1 gm/ Sodium Chloride 50 ml @ 100 mls/hr DAILY IV 10/20/20 09:00 10/28/20 22:00 DC 10/28/20 09:40 Insulin Glargine (Lantus Syringe) 20 unit DAILY SQ 10/21/20 17:00 11/01/20 08:50 Divalproex Sodium (Depakote Sprinkles) 500 mg 0900,1400 PO 10/23/20 09:00 10/29/20 18:37 DC 10/29/20 13:48 Nystatin (Nystop) 1 rocio BID TP 10/24/20 21:00 11/03/20 08:51 Divalproex Sodium (Depakote Sprinkles) 500 mg 0900,1400 PO 10/30/20 09:00 10/30/20 16:03 DC 10/30/20 12:45 Divalproex Sodium (Depakote Sprinkles) 750 mg HS PO 10/29/20 21:00 10/30/20 16:03 DC 10/29/20 20:27 Valproic Acid (Depakene) 750 mg QHS PO 10/30/20 21:00 10/31/20 15:02 DC 10/30/20 19:47 Valproic Acid (Depakene) 500 mg 0900,1400 PO 10/31/20 09:00 10/31/20 15:02 DC 10/31/20 13:36 Gabapentin (Neurontin Oral Soln) 100 mg BID PO 10/30/20 21:00 10/31/20 15:02 DC 10/31/20 08:26 Risperidone (RisperDAL) 0.5 mg BID PO 10/30/20 21:00 10/31/20 15:02 DC 10/31/20 08:29 Divalproex Sodium (Depakote Sprinkles) 750 mg HS PO 10/31/20 21:00 11/02/20 20:33 Divalproex Sodium (Depakote Sprinkles) 500 mg 0900,1400 PO 11/01/20 09:00 11/03/20 08:49 Risperidone (RisperDAL) 0.5 mg BID PO 10/31/20 21:00 11/03/20 08:47 Gabapentin (Neurontin) 100 mg BID PO 10/31/20 21:00 11/03/20 08:51 Vitamin A/Vitamin D (Vitamin A & D Ointment) 1 rocio BID76 TP 11/02/20 11:30 11/03/20 05:50 Current Medications Medications (Trade) Dose Ordered Sig/Alexx Route PRN Reason Start Time Stop Time Status Last Admin Dose Admin Vitamin A/Vitamin D (Vitamin A & D Ointment) 1 rocio BID76 TP 11/02/20 11:30 11/03/20 05:50 I have reviewed the current psychotropics carefully including drug interactions. Risk benefit ratio favors no change other than as noted in my dictated progress note. Diagnosis: Problems: (1) Schizoaffective disorder, bipolar type (2) Impulse control disorder, unspecified (3) Anxiety disorder, unspecified (4) Bipolar disorder, curr episode mixed, severe, with psychotic features CHAVO WANG MD Nov 03, 2020 09:20
[2020-11-03] MEDS: INSULIN GLARGINE SYRINGE. SQ SCH (09:36)
--- NOTE | 2020-11-03 09:41 | PDOC ---
Exam Note: Edgar Note: This note is a late entry for 11/02/2020 covers elements not covered in my initial note. Subjective: The patient was seen individually in the evening of 11/02/2020 with Treasure MELGAR, discussed and reviewed the chart. She slept 5-1/2 hours previous night. Previous night she was somewhat rude, better during the day today. Review of Systems: Ambulation impaired in wheelchair. No CV, , pulmonary, eye system symptoms on review. Mental Status Exam: The patient is reasonably oriented to herself. Speech is coherent. Abstraction is fair. Computation impaired. Language function intact. Attention span short. Mood and affect anxious, labile. Laboratory Data: Reviewed. Impression: Schizoaffective disorder bipolar type. Impulse control disorder unspecified. Anxiety disorder unspecified. Plan: Continue rest of the psychotropics unchanged. Assessment: Vital Signs/I&O: Vital Signs Date Time Temp Pulse Resp B/P (MAP) Pulse Ox O2 Delivery O2 Flow Rate FiO2 11/03/20 08:48 68 126/72 11/03/20 05:57 97.3 16 95 11/02/20 06:04 Room Air I & O 11/02/20 11/02/20 11/03/20 14:59 22:59 06:59 Intake Total 480 ml 680 ml Balance 480 ml 680 ml Labs: Laboratory Tests Test 11/02/20 12:09 11/02/20 17:14 11/02/20 19:15 11/03/20 07:55 Glucose (Fingerstick) 83 mg/dL (70-99) 101 mg/dL (70-99) H 157 mg/dL (70-99) H 96 mg/dL (70-99) Current Medications: Meds: Laboratory Tests Test 11/02/20 12:09 11/02/20 17:14 11/02/20 19:15 11/03/20 07:55 Glucose (Fingerstick) 83 mg/dL 101 mg/dL 157 mg/dL 96 mg/dL Current Medications Medications (Trade) Dose Ordered Sig/Alexx Route PRN Reason Start Time Stop Time Status Last Admin Dose Admin Acetaminophen (Tylenol) 650 mg PRN Q6HRS PRN PO MILD PAIN / TEMP > 100.3'F 10/14/20 20:15 Apixaban (Eliquis) 5 mg BID PO 10/14/20 21:00 11/03/20 08:47 Aspirin (Aspirin Enteric Coated) 81 mg DAILY PO 10/15/20 09:00 11/03/20 08:48 Aspirin (Aspirin Enteric Coated) 81 mg DAILY PO 10/15/20 09:00 UNV Divalproex Sodium (Depakote Sprinkles) 500 mg 0900,1300,1700 PO 10/15/20 09:00 10/22/20 17:40 DC 10/22/20 13:11 Divalproex Sodium (Depakote Sprinkles) 750 mg HS PO 10/14/20 21:00 10/29/20 18:37 DC 10/28/20 20:58 Furosemide (Lasix) 20 mg DAILY PO 10/15/20 09:00 11/03/20 08:47 Gabapentin (Neurontin) 100 mg BID PO 10/14/20 21:00 10/30/20 16:03 DC 10/30/20 08:37 Acetaminophen/ Hydrocodone Bitart (Lortab 5/325) 1 tab PRN Q4HRS PRN PO MODERATE PAIN, SEVERE PAIN 10/14/20 20:15 10/24/20 17:49 Hydroxyzine HCl (Atarax) 25 mg PRN TID PRN PO ITCHING 10/14/20 21:00 11/01/20 20:15 Insulin Human Lispro (HumaLOG) 1 units TIDWMEALS SQ 10/15/20 08:00 Cancel Linagliptin (Tradjenta) 5 mg DAILY PO 10/15/20 09:00 11/03/20 08:47 Al Hydroxide/Mg Hydroxide (Mylanta Plus Xs) 15 ml PRN BFRMEALHC PRN PO DYSPEPSIA 10/14/20 20:15 Melatonin (Melatonin) 3 mg HS PO 10/14/20 21:00 11/02/20 20:34 Metformin HCl (Glucophage) 750 mg BIDWMEALS PO 10/15/20 08:00 11/03/20 08:48 Metoprolol Succinate (Toprol Xl) 50 mg DAILY PO 10/15/20 09:00 11/03/20 08:48 Nystatin (Nystop) 15 rocio BID TP 10/14/20 21:00 10/24/20 19:29 DC 10/24/20 09:30 Risperidone (RisperDAL) 0.5 mg BID PO 10/14/20 21:00 10/30/20 16:03 DC 10/30/20 08:35 Sertraline HCl (Zoloft) 50 mg DAILY PO 10/15/20 09:00 11/03/20 08:47 Atorvastatin Calcium (Lipitor) 40 mg QHS PO 10/14/20 21:00 11/02/20 20:34 Cyanocobalamin (Vitamin B-12) 500 mcg DAILY PO 10/15/20 09:00 11/03/20 08:47 Insulin Glargine (Lantus Syringe) 35 unit DAILY SQ 10/15/20 09:00 10/21/20 16:52 DC 10/21/20 10:03 Lactobacillus Rhamnosus (Culturelle) 1 cap DAILY PO 10/15/20 09:00 11/03/20 08:47 Magnesium Hydroxide (Milk Of Magnesia) 2,400 mg PRN DAILY PRN PO CONSTIPATION 10/14/20 21:00 10/25/20 20:04 Multi-Ingredient Ointment (Analgesic [place]) 1 rocio PRN Q6HRS PRN TP MUSCLE PAIN 10/14/20 21:00 Multivitamins/ Calcium (Thera-M Plus) 1 tab DAILY PO 10/15/20 09:00 11/03/20 08:51 Pantoprazole Sodium (Protonix) 40 mg BIDWMEALS PO 10/15/20 08:00 11/03/20 08:47 Potassium Chloride (Klor-Con) 10 meq DAILYWBKFT PO 10/15/20 08:00 11/03/20 08:47 Vitamin D (Vitamin D3) 500 unit DAILY PO 10/15/20 09:00 11/03/20 08:47 Acetaminophen (Tylenol) 650 mg PRN Q6HRS PRN PO MILD PAIN / TEMP > 100.3'F 10/14/20 23:15 10/14/20 23:34 DC Multi-Ingredient Ointment (Analgesic [place]) 1 rocio PRN QID PRN TP MUSCLE PAIN 10/14/20 23:15 10/16/20 08:37 DC Al Hydroxide/Mg Hydroxide (Mylanta Plus Xs) 15 ml PRN AFTMEALHC PRN PO DYSPEPSIA 10/14/20 23:15 10/14/20 23:39 DC Magnesium Hydroxide (Milk Of Magnesia) 2,400 mg PRN QHS PRN PO CONSTIPATION 10/14/20 23:15 10/14/20 23:39 DC Insulin Human Lispro (HumaLOG) 0-5 UNITS TIDWMEALS SQ 10/15/20 12:00 10/31/20 17:17 Ertapenem 1 gm/ Sodium Chloride 50 ml @ 100 mls/hr DAILY IV 10/20/20 09:00 10/28/20 22:00 DC 10/28/20 09:40 Insulin Glargine (Lantus Syringe) 20 unit DAILY SQ 10/21/20 17:00 11/03/20 09:36 Divalproex Sodium (Depakote Sprinkles) 500 mg 0900,1400 PO 10/23/20 09:00 10/29/20 18:37 DC 10/29/20 13:48 Nystatin (Nystop) 1 rocio BID TP 10/24/20 21:00 11/03/20 08:51 Divalproex Sodium (Depakote Sprinkles) 500 mg 0900,1400 PO 10/30/20 09:00 10/30/20 16:03 DC 10/30/20 12:45 Divalproex Sodium (Depakote Sprinkles) 750 mg HS PO 10/29/20 21:00 10/30/20 16:03 DC 10/29/20 20:27 Valproic Acid (Depakene) 750 mg QHS PO 10/30/20 21:00 10/31/20 15:02 DC 10/30/20 19:47 Valproic Acid (Depakene) 500 mg 0900,1400 PO 10/31/20 09:00 10/31/20 15:02 DC 10/31/20 13:36 Gabapentin (Neurontin Oral Soln) 100 mg BID PO 10/30/20 21:00 10/31/20 15:02 DC 10/31/20 08:26 Risperidone (RisperDAL) 0.5 mg BID PO 10/30/20 21:00 10/31/20 15:02 DC 10/31/20 08:29 Divalproex Sodium (Depakote Sprinkles) 750 mg HS PO 10/31/20 21:00 11/02/20 20:33 Divalproex Sodium (Depakote Sprinkles) 500 mg 0900,1400 PO 11/01/20 09:00 11/03/20 08:49 Risperidone (RisperDAL) 0.5 mg BID PO 10/31/20 21:00 11/03/20 08:47 Gabapentin (Neurontin) 100 mg BID PO 10/31/20 21:00 11/03/20 08:51 Vitamin A/Vitamin D (Vitamin A & D Ointment) 1 rocio BID76 TP 11/02/20 11:30 11/03/20 05:50 Current Medications Medications (Trade) Dose Ordered Sig/Alexx Route PRN Reason Start Time Stop Time Status Last Admin Dose Admin Vitamin A/Vitamin D (Vitamin A & D Ointment) 1 rocio BID76 TP 11/02/20 11:30 11/03/20 05:50 I have reviewed the current psychotropics carefully including drug interactions. Risk benefit ratio favors no change other than as noted in my dictated progress note. Diagnosis: Problems: (1) Schizoaffective disorder, bipolar type (2) Impulse control disorder, unspecified (3) Anxiety disorder, unspecified (4) Bipolar disorder, curr episode mixed, severe, with psychotic features CHAVO WANG MD Nov 03, 2020 09:41
--- NOTE | 2020-11-03 13:52 | NUR ---
KEITH contacted pt brother Jerman to give him an update on pt and how she is doing. KEITH explained to Jerman that pt has completed treatment for her UTI and appears to be doing much better. Pt does not qualify for a Level II and will return to [facility]. KEITH has attempted a few times to contact staff there with no such luck. KEITH faxed over a packet on Friday and will attempt to contact someone about discharging pt middle of next week. Jerman reports he will be out of town Friday through Friday. However, he would like to know discharge plans when they are made.
--- NOTE | 2020-11-03 14:12 | NUR ---
KEITH contacted KEITH Watts at [facility] to discuss pt. Stefanie reports that she did not get an updated fax and asked that KEITH email it to her so she can pass it on to the team. Stefanie reports that pt does not allow for them to complete cares and other things, which could explain why pt continues to have a UTI. For them, if a pt refuses something, they are not allowed to continue or have to attempt back at a later time. KEITH mentioned treatment team being Friday but knew that the team this week discussed discharge on either Friday or Friday. KEITH will plan to contact Stefanie after team Friday to finalize an actual discharge date.
[2020-11-03 16:23] VITALS: BP 90/61
[2020-11-03] MEDS: MELATONIN 3 MG TABLET PO SCH (20:20)
[2020-11-03] MEDS: ATORVASTATIN CALCIUM 20 MG TABLET PO SCH (20:21)
--- NOTE | 2020-11-03 21:57 | PDOC ---
Exam Note: Edgar Note: Please also refer to the separate dictated note~for this date of service dictated separately.~Patient seen individually. Discussed the patient with Nursing staff reviewed the chart.~Reviewed interim history and current functioning. Reviewed vital signs,~Labs/ Radiology~and current medications noted below. Continue current treatment with the changes noted in the dictated addendum note Assessment: Vital Signs/I&O: Vital Signs Date Time Temp Pulse Resp B/P (MAP) Pulse Ox O2 Delivery O2 Flow Rate FiO2 11/03/20 16:23 97.1 81 20 90/61 (71) 97 11/02/20 06:04 Room Air I & O 11/02/20 11/02/20 11/03/20 15:00 23:00 07:00 Intake Total 480 ml 680 ml Balance 480 ml 680 ml Labs: Laboratory Tests Test 11/03/20 07:55 11/03/20 12:08 11/03/20 17:14 11/03/20 19:23 Glucose (Fingerstick) 96 mg/dL (70-99) 98 mg/dL (70-99) 81 mg/dL (70-99) 73 mg/dL (70-99) Current Medications: Meds: Laboratory Tests Test 11/03/20 07:55 11/03/20 12:08 11/03/20 17:14 11/03/20 19:23 Glucose (Fingerstick) 96 mg/dL 98 mg/dL 81 mg/dL 73 mg/dL Current Medications Medications (Trade) Dose Ordered Sig/Alexx Route PRN Reason Start Time Stop Time Status Last Admin Dose Admin Acetaminophen (Tylenol) 650 mg PRN Q6HRS PRN PO MILD PAIN / TEMP > 100.3'F 10/14/20 20:15 Apixaban (Eliquis) 5 mg BID PO 10/14/20 21:00 11/03/20 20:20 Aspirin (Aspirin Enteric Coated) 81 mg DAILY PO 10/15/20 09:00 11/03/20 08:48 Aspirin (Aspirin Enteric Coated) 81 mg DAILY PO 10/15/20 09:00 UNV Divalproex Sodium (Depakote Sprinkles) 500 mg 0900,1300,1700 PO 10/15/20 09:00 10/22/20 17:40 DC 10/22/20 13:11 Divalproex Sodium (Depakote Sprinkles) 750 mg HS PO 10/14/20 21:00 10/29/20 18:37 DC 10/28/20 20:58 Furosemide (Lasix) 20 mg DAILY PO 10/15/20 09:00 11/03/20 08:47 Gabapentin (Neurontin) 100 mg BID PO 10/14/20 21:00 10/30/20 16:03 DC 10/30/20 08:37 Acetaminophen/ Hydrocodone Bitart (Lortab 5/325) 1 tab PRN Q4HRS PRN PO MODERATE PAIN, SEVERE PAIN 10/14/20 20:15 10/24/20 17:49 Hydroxyzine HCl (Atarax) 25 mg PRN TID PRN PO ITCHING 10/14/20 21:00 11/01/20 20:15 Insulin Human Lispro (HumaLOG) 1 units TIDWMEALS SQ 10/15/20 08:00 Cancel Linagliptin (Tradjenta) 5 mg DAILY PO 10/15/20 09:00 11/03/20 08:47 Al Hydroxide/Mg Hydroxide (Mylanta Plus Xs) 15 ml PRN BFRMEALHC PRN PO DYSPEPSIA 10/14/20 20:15 Melatonin (Melatonin) 3 mg HS PO 10/14/20 21:00 11/03/20 20:20 Metformin HCl (Glucophage) 750 mg BIDWMEALS PO 10/15/20 08:00 11/03/20 17:30 Metoprolol Succinate (Toprol Xl) 50 mg DAILY PO 10/15/20 09:00 11/03/20 08:48 Nystatin (Nystop) 15 rocio BID TP 10/14/20 21:00 10/24/20 19:29 DC 10/24/20 09:30 Risperidone (RisperDAL) 0.5 mg BID PO 10/14/20 21:00 10/30/20 16:03 DC 10/30/20 08:35 Sertraline HCl (Zoloft) 50 mg DAILY PO 10/15/20 09:00 11/03/20 08:47 Atorvastatin Calcium (Lipitor) 40 mg QHS PO 10/14/20 21:00 11/03/20 20:21 Cyanocobalamin (Vitamin B-12) 500 mcg DAILY PO 10/15/20 09:00 11/03/20 08:47 Insulin Glargine (Lantus Syringe) 35 unit DAILY SQ 10/15/20 09:00 10/21/20 16:52 DC 10/21/20 10:03 Lactobacillus Rhamnosus (Culturelle) 1 cap DAILY PO 10/15/20 09:00 11/03/20 08:47 Magnesium Hydroxide (Milk Of Magnesia) 2,400 mg PRN DAILY PRN PO CONSTIPATION 10/14/20 21:00 10/25/20 20:04 Multi-Ingredient Ointment (Analgesic [place]) 1 rocio PRN Q6HRS PRN TP MUSCLE PAIN 10/14/20 21:00 Multivitamins/ Calcium (Thera-M Plus) 1 tab DAILY PO 10/15/20 09:00 11/03/20 08:51 Pantoprazole Sodium (Protonix) 40 mg BIDWMEALS PO 10/15/20 08:00 11/03/20 17:30 Potassium Chloride (Klor-Con) 10 meq DAILYWBKFT PO 10/15/20 08:00 11/03/20 08:47 Vitamin D (Vitamin D3) 500 unit DAILY PO 10/15/20 09:00 11/03/20 08:47 Acetaminophen (Tylenol) 650 mg PRN Q6HRS PRN PO MILD PAIN / TEMP > 100.3'F 10/14/20 23:15 10/14/20 23:34 DC Multi-Ingredient Ointment (Analgesic [place]) 1 rocio PRN QID PRN TP MUSCLE PAIN 10/14/20 23:15 10/16/20 08:37 DC Al Hydroxide/Mg Hydroxide (Mylanta Plus Xs) 15 ml PRN AFTMEALHC PRN PO DYSPEPSIA 10/14/20 23:15 10/14/20 23:39 DC Magnesium Hydroxide (Milk Of Magnesia) 2,400 mg PRN QHS PRN PO CONSTIPATION 10/14/20 23:15 10/14/20 23:39 DC Insulin Human Lispro (HumaLOG) 0-5 UNITS TIDWMEALS SQ 10/15/20 12:00 10/31/20 17:17 Ertapenem 1 gm/ Sodium Chloride 50 ml @ 100 mls/hr DAILY IV 10/20/20 09:00 10/28/20 22:00 DC 10/28/20 09:40 Insulin Glargine (Lantus Syringe) 20 unit DAILY SQ 10/21/20 17:00 11/03/20 09:36 Divalproex Sodium (Depakote Sprinkles) 500 mg 0900,1400 PO 10/23/20 09:00 10/29/20 18:37 DC 10/29/20 13:48 Nystatin (Nystop) 1 rocio BID TP 10/24/20 21:00 11/03/20 20:20 Divalproex Sodium (Depakote Sprinkles) 500 mg 0900,1400 PO 10/30/20 09:00 10/30/20 16:03 DC 10/30/20 12:45 Divalproex Sodium (Depakote Sprinkles) 750 mg HS PO 10/29/20 21:00 10/30/20 16:03 DC 10/29/20 20:27 Valproic Acid (Depakene) 750 mg QHS PO 10/30/20 21:00 10/31/20 15:02 DC 10/30/20 19:47 Valproic Acid (Depakene) 500 mg 0900,1400 PO 10/31/20 09:00 10/31/20 15:02 DC 10/31/20 13:36 Gabapentin (Neurontin Oral Soln) 100 mg BID PO 10/30/20 21:00 10/31/20 15:02 DC 10/31/20 08:26 Risperidone (RisperDAL) 0.5 mg BID PO 10/30/20 21:00 10/31/20 15:02 DC 10/31/20 08:29 Divalproex Sodium (Depakote Sprinkles) 750 mg HS PO 10/31/20 21:00 11/03/20 20:20 Divalproex Sodium (Depakote Sprinkles) 500 mg 0900,1400 PO 11/01/20 09:00 11/03/20 14:24 Risperidone (RisperDAL) 0.5 mg BID PO 10/31/20 21:00 11/03/20 20:20 Gabapentin (Neurontin) 100 mg BID PO 10/31/20 21:00 11/03/20 20:21 Vitamin A/Vitamin D (Vitamin A & D Ointment) 1 rocio BID76 TP 11/02/20 11:30 11/03/20 17:31 I have reviewed the current psychotropics carefully including drug interactions. Risk benefit ratio favors no change other than as noted in my dictated progress note. Diagnosis: Problems: (1) Schizoaffective disorder, bipolar type (2) Impulse control disorder, unspecified (3) Anxiety disorder, unspecified (4) Bipolar disorder, curr episode mixed, severe, with psychotic features CHAVO WANG MD Nov 03, 2020 21:57
--- NOTE | 2020-11-03 23:51 | NUR ---
This evening pt was often at nursing station window asking where here room was and at other times calling out hello or help repetitively. Eventually she went into the day room where she watched a movie while visiting with peers and eating popcorn. She took her meds whole without difficulty and was cooperative with cares and has been sleeping.
[2020-11-04] MEDS: VITS A & D/LANOLIN TOPICAL OINTMENT 42GM TUBE. TP SCH ×2 (05:53→16:59)
[2020-11-04 06:00] VITALS: BP 118/70
--- NOTE | 2020-11-04 06:28 | PDOC ---
Exam Note: Edgar Note: This note is a late entry for 11/03/2020 covers elements not covered in my initial note. Subjective: The patient was seen individually in the evening of 11/03/2020 with Estephanie MELGAR, discussed and reviewed the chart. She slept 7 hours previous night, less yelling. I met with her individually. She was talking about getting irritated with what goes on around here? On further questioning she is referring to some of the demented patients walking into other patients rooms and this seems to agitate her. We discussed ways for her to keep psychological distant from things that are upsetting to her and she was able to comprehend this and was appreciative that I discussed this with her. Review of Systems: Ambulation impaired in wheelchair. No CV, , pulmonary, eye, ENT system symptoms on review. Mental Status Exam: The patient is reasonably oriented to herself. Speech is coherent. Abstraction is fair. Computation impaired. Language function intact. Attention span short. Mood and affect anxious, labile. Laboratory Data: Reviewed. Impression: Schizoaffective disorder bipolar type. Impulse control disorder unspecified. Anxiety disorder unspecified. Plan: Continue rest of the psychotropics unchanged Assessment: Vital Signs/I&O: Vital Signs Date Time Temp Pulse Resp B/P (MAP) Pulse Ox O2 Delivery O2 Flow Rate FiO2 11/04/20 06:00 97.6 82 16 118/70 (86) 94 Room Air I & O 11/03/20 11/03/20 11/04/20 15:00 23:00 07:00 Intake Total 600 ml 240 ml 240 ml Balance 600 ml 240 ml 240 ml Labs: Laboratory Tests Test 11/03/20 07:55 11/03/20 12:08 11/03/20 17:14 11/03/20 19:23 Glucose (Fingerstick) 96 mg/dL (70-99) 98 mg/dL (70-99) 81 mg/dL (70-99) 73 mg/dL (70-99) Current Medications: Meds: Laboratory Tests Test 11/03/20 07:55 11/03/20 12:08 11/03/20 17:14 11/03/20 19:23 Glucose (Fingerstick) 96 mg/dL 98 mg/dL 81 mg/dL 73 mg/dL Current Medications Medications (Trade) Dose Ordered Sig/Alexx Route PRN Reason Start Time Stop Time Status Last Admin Dose Admin Acetaminophen (Tylenol) 650 mg PRN Q6HRS PRN PO MILD PAIN / TEMP > 100.3'F 10/14/20 20:15 Apixaban (Eliquis) 5 mg BID PO 10/14/20 21:00 11/03/20 20:20 Aspirin (Aspirin Enteric Coated) 81 mg DAILY PO 10/15/20 09:00 11/03/20 08:48 Aspirin (Aspirin Enteric Coated) 81 mg DAILY PO 10/15/20 09:00 UNV Divalproex Sodium (Depakote Sprinkles) 500 mg 0900,1300,1700 PO 10/15/20 09:00 10/22/20 17:40 DC 10/22/20 13:11 Divalproex Sodium (Depakote Sprinkles) 750 mg HS PO 10/14/20 21:00 10/29/20 18:37 DC 10/28/20 20:58 Furosemide (Lasix) 20 mg DAILY PO 10/15/20 09:00 11/03/20 08:47 Gabapentin (Neurontin) 100 mg BID PO 10/14/20 21:00 10/30/20 16:03 DC 10/30/20 08:37 Acetaminophen/ Hydrocodone Bitart (Lortab 5/325) 1 tab PRN Q4HRS PRN PO MODERATE PAIN, SEVERE PAIN 10/14/20 20:15 10/24/20 17:49 Hydroxyzine HCl (Atarax) 25 mg PRN TID PRN PO ITCHING 10/14/20 21:00 11/01/20 20:15 Insulin Human Lispro (HumaLOG) 1 units TIDWMEALS SQ 10/15/20 08:00 Cancel Linagliptin (Tradjenta) 5 mg DAILY PO 10/15/20 09:00 11/03/20 08:47 Al Hydroxide/Mg Hydroxide (Mylanta Plus Xs) 15 ml PRN BFRMEALHC PRN PO DYSPEPSIA 10/14/20 20:15 Melatonin (Melatonin) 3 mg HS PO 10/14/20 21:00 11/03/20 20:20 Metformin HCl (Glucophage) 750 mg BIDWMEALS PO 10/15/20 08:00 11/03/20 17:30 Metoprolol Succinate (Toprol Xl) 50 mg DAILY PO 10/15/20 09:00 11/03/20 08:48 Nystatin (Nystop) 15 rocio BID TP 10/14/20 21:00 10/24/20 19:29 DC 10/24/20 09:30 Risperidone (RisperDAL) 0.5 mg BID PO 10/14/20 21:00 10/30/20 16:03 DC 10/30/20 08:35 Sertraline HCl (Zoloft) 50 mg DAILY PO 10/15/20 09:00 11/03/20 08:47 Atorvastatin Calcium (Lipitor) 40 mg QHS PO 10/14/20 21:00 11/03/20 20:21 Cyanocobalamin (Vitamin B-12) 500 mcg DAILY PO 10/15/20 09:00 11/03/20 08:47 Insulin Glargine (Lantus Syringe) 35 unit DAILY SQ 10/15/20 09:00 10/21/20 16:52 DC 10/21/20 10:03 Lactobacillus Rhamnosus (Culturelle) 1 cap DAILY PO 10/15/20 09:00 11/03/20 08:47 Magnesium Hydroxide (Milk Of Magnesia) 2,400 mg PRN DAILY PRN PO CONSTIPATION 10/14/20 21:00 10/25/20 20:04 Multi-Ingredient Ointment (Analgesic [place]) 1 rocio PRN Q6HRS PRN TP MUSCLE PAIN 10/14/20 21:00 Multivitamins/ Calcium (Thera-M Plus) 1 tab DAILY PO 10/15/20 09:00 11/03/20 08:51 Pantoprazole Sodium (Protonix) 40 mg BIDWMEALS PO 10/15/20 08:00 11/03/20 17:30 Potassium Chloride (Klor-Con) 10 meq DAILYWBKFT PO 10/15/20 08:00 11/03/20 08:47 Vitamin D (Vitamin D3) 500 unit DAILY PO 10/15/20 09:00 11/03/20 08:47 Acetaminophen (Tylenol) 650 mg PRN Q6HRS PRN PO MILD PAIN / TEMP > 100.3'F 10/14/20 23:15 10/14/20 23:34 DC Multi-Ingredient Ointment (Analgesic [place]) 1 rocio PRN QID PRN TP MUSCLE PAIN 10/14/20 23:15 10/16/20 08:37 DC Al Hydroxide/Mg Hydroxide (Mylanta Plus Xs) 15 ml PRN AFTMEALHC PRN PO DYSPEPSIA 10/14/20 23:15 10/14/20 23:39 DC Magnesium Hydroxide (Milk Of Magnesia) 2,400 mg PRN QHS PRN PO CONSTIPATION 10/14/20 23:15 10/14/20 23:39 DC Insulin Human Lispro (HumaLOG) 0-5 UNITS TIDWMEALS SQ 10/15/20 12:00 10/31/20 17:17 Ertapenem 1 gm/ Sodium Chloride 50 ml @ 100 mls/hr DAILY IV 10/20/20 09:00 10/28/20 22:00 DC 10/28/20 09:40 Insulin Glargine (Lantus Syringe) 20 unit DAILY SQ 10/21/20 17:00 11/03/20 09:36 Divalproex Sodium (Depakote Sprinkles) 500 mg 0900,1400 PO 10/23/20 09:00 10/29/20 18:37 DC 10/29/20 13:48 Nystatin (Nystop) 1 rocio BID TP 10/24/20 21:00 11/03/20 20:20 Divalproex Sodium (Depakote Sprinkles) 500 mg 0900,1400 PO 10/30/20 09:00 10/30/20 16:03 DC 10/30/20 12:45 Divalproex Sodium (Depakote Sprinkles) 750 mg HS PO 10/29/20 21:00 10/30/20 16:03 DC 10/29/20 20:27 Valproic Acid (Depakene) 750 mg QHS PO 10/30/20 21:00 10/31/20 15:02 DC 10/30/20 19:47 Valproic Acid (Depakene) 500 mg 0900,1400 PO 10/31/20 09:00 10/31/20 15:02 DC 10/31/20 13:36 Gabapentin (Neurontin Oral Soln) 100 mg BID PO 10/30/20 21:00 10/31/20 15:02 DC 10/31/20 08:26 Risperidone (RisperDAL) 0.5 mg BID PO 10/30/20 21:00 10/31/20 15:02 DC 10/31/20 08:29 Divalproex Sodium (Depakote Sprinkles) 750 mg HS PO 10/31/20 21:00 11/03/20 20:20 Divalproex Sodium (Depakote Sprinkles) 500 mg 0900,1400 PO 11/01/20 09:00 11/03/20 14:24 Risperidone (RisperDAL) 0.5 mg BID PO 10/31/20 21:00 11/03/20 20:20 Gabapentin (Neurontin) 100 mg BID PO 10/31/20 21:00 11/03/20 20:21 Vitamin A/Vitamin D (Vitamin A & D Ointment) 1 rocio BID76 TP 11/02/20 11:30 11/04/20 05:53 I have reviewed the current psychotropics carefully including drug interactions. Risk benefit ratio favors no change other than as noted in my dictated progress note. Diagnosis: Problems: (1) Schizoaffective disorder, bipolar type (2) Impulse control disorder, unspecified (3) Anxiety disorder, unspecified (4) Bipolar disorder, curr episode mixed, severe, with psychotic features CHAVO WANG MD Nov 04, 2020 06:28
[2020-11-04] MEDS: INSULIN LISPRO 300 UNITS/3 ML VIAL. SQ SCH ×3 (08:00→16:26)
[2020-11-04] MEDS: metFORMIN 500 MG TABLET PO SCH ×2 (08:21→16:36)
[2020-11-04] MEDS: DIVALPROEX 125 MG CAP.SPRINK PO SCH ×3 (08:21→18:33)
[2020-11-04] MEDS: MULTIVITAMIN with MINERAL TABLET. PO SCH (08:21)
[2020-11-04] MEDS: GABAPENTIN 100 MG CAPSULE. PO SCH ×2 (08:21→18:34)
[2020-11-04] MEDS: LACTOBACILLUS RHAMNOSUS GG 1 CAPSULE. PO SCH (08:21)
[2020-11-04] MEDS: PANTOPRAZOLE 40 MG TABLET. PO SCH ×2 (08:21→16:36)
[2020-11-04] MEDS: ASPIRIN ENTERIC COATED 81 MG TABLET.DR. PO SCH (08:21)
[2020-11-04] MEDS: risperiDONE 0.25 MG TABLET. PO SCH ×2 (08:21→18:34)
[2020-11-04] MEDS: APIXABAN 5 MG TABLET. PO SCH ×2 (08:22→18:34)
[2020-11-04] MEDS: LINAGLIPTIN 5 MG TABLET PO SCH (08:22)
[2020-11-04] MEDS: POTASSIUM CHLORIDE 10 MEQ TABLET.ER. PO SCH (08:22)
[2020-11-04] MEDS: CYANOCOBALAMIN (VITAMIN B-12) 250 MCG TABLET. PO SCH (08:22)
[2020-11-04] MEDS: FUROSEMIDE 20 MG TABLET PO SCH (08:22)
[2020-11-04] MEDS: CHOLECALCIFEROL (VITAMIN D3) 1,000 UNIT TABLET PO SCH (08:22)
[2020-11-04] MEDS: SERTRALINE 50 MG TABLET. PO SCH (08:22)
[2020-11-04] MEDS: NYSTATIN TOPICAL POWDER 15GM BOTTLE. TP SCH ×2 (08:23→19:50)
[2020-11-04] MEDS: METOPROLOL SUCC 24HR ER 50 MG TAB.ER.24H. PO SCH (08:23)
[2020-11-04] MEDS: INSULIN GLARGINE SYRINGE. SQ SCH (08:28)
[2020-11-04 15:47] VITALS: BP 110/69
[2020-11-04] MEDS: MELATONIN 3 MG TABLET PO SCH (18:33)
[2020-11-04] MEDS: ATORVASTATIN CALCIUM 20 MG TABLET PO SCH (18:34)
--- NOTE | 2020-11-04 21:53 | PDOC ---
Exam Note: Edgar Note: Please also refer to the separate dictated note~for this date of service dictated separately.~Patient seen individually. Discussed the patient with Nursing staff reviewed the chart.~Reviewed interim history and current functioning. Reviewed vital signs,~Labs/ Radiology~and current medications noted below. Continue current treatment with the changes noted in the dictated addendum note Assessment: Vital Signs/I&O: Vital Signs Date Time Temp Pulse Resp B/P (MAP) Pulse Ox O2 Delivery O2 Flow Rate FiO2 11/04/20 15:47 96.8 73 16 110/69 (83) 96 11/04/20 06:00 Room Air I & O 11/03/20 11/03/20 11/04/20 15:00 23:00 07:00 Intake Total 600 ml 240 ml 240 ml Balance 600 ml 240 ml 240 ml Labs: Laboratory Tests Test 11/04/20 07:50 11/04/20 11:34 11/04/20 16:22 11/04/20 19:38 Glucose (Fingerstick) 99 mg/dL (70-99) 102 mg/dL (70-99) H 84 mg/dL (70-99) 93 mg/dL (70-99) Current Medications: Meds: Laboratory Tests Test 11/04/20 07:50 11/04/20 11:34 11/04/20 16:22 11/04/20 19:38 Glucose (Fingerstick) 99 mg/dL 102 mg/dL 84 mg/dL 93 mg/dL Current Medications Medications (Trade) Dose Ordered Sig/Aelxx Route PRN Reason Start Time Stop Time Status Last Admin Dose Admin Acetaminophen (Tylenol) 650 mg PRN Q6HRS PRN PO MILD PAIN / TEMP > 100.3'F 10/14/20 20:15 Apixaban (Eliquis) 5 mg BID PO 10/14/20 21:00 11/04/20 18:34 Aspirin (Aspirin Enteric Coated) 81 mg DAILY PO 10/15/20 09:00 11/04/20 08:21 Aspirin (Aspirin Enteric Coated) 81 mg DAILY PO 10/15/20 09:00 UNV Divalproex Sodium (Depakote Sprinkles) 500 mg 0900,1300,1700 PO 10/15/20 09:00 10/22/20 17:40 DC 10/22/20 13:11 Divalproex Sodium (Depakote Sprinkles) 750 mg HS PO 10/14/20 21:00 10/29/20 18:37 DC 10/28/20 20:58 Furosemide (Lasix) 20 mg DAILY PO 10/15/20 09:00 11/04/20 08:22 Gabapentin (Neurontin) 100 mg BID PO 10/14/20 21:00 10/30/20 16:03 DC 10/30/20 08:37 Acetaminophen/ Hydrocodone Bitart (Lortab 5/325) 1 tab PRN Q4HRS PRN PO MODERATE PAIN, SEVERE PAIN 10/14/20 20:15 10/24/20 17:49 Hydroxyzine HCl (Atarax) 25 mg PRN TID PRN PO ITCHING 10/14/20 21:00 11/01/20 20:15 Insulin Human Lispro (HumaLOG) 1 units TIDWMEALS SQ 10/15/20 08:00 Cancel Linagliptin (Tradjenta) 5 mg DAILY PO 10/15/20 09:00 11/04/20 08:22 Al Hydroxide/Mg Hydroxide (Mylanta Plus Xs) 15 ml PRN BFRMEALHC PRN PO DYSPEPSIA 10/14/20 20:15 Melatonin (Melatonin) 3 mg HS PO 10/14/20 21:00 11/04/20 18:33 Metformin HCl (Glucophage) 750 mg BIDWMEALS PO 10/15/20 08:00 11/04/20 16:36 Metoprolol Succinate (Toprol Xl) 50 mg DAILY PO 10/15/20 09:00 11/04/20 08:23 Nystatin (Nystop) 15 rocio BID TP 10/14/20 21:00 10/24/20 19:29 DC 10/24/20 09:30 Risperidone (RisperDAL) 0.5 mg BID PO 10/14/20 21:00 10/30/20 16:03 DC 10/30/20 08:35 Sertraline HCl (Zoloft) 50 mg DAILY PO 10/15/20 09:00 11/04/20 08:22 Atorvastatin Calcium (Lipitor) 40 mg QHS PO 10/14/20 21:00 11/04/20 18:34 Cyanocobalamin (Vitamin B-12) 500 mcg DAILY PO 10/15/20 09:00 11/04/20 08:22 Insulin Glargine (Lantus Syringe) 35 unit DAILY SQ 10/15/20 09:00 10/21/20 16:52 DC 10/21/20 10:03 Lactobacillus Rhamnosus (Culturelle) 1 cap DAILY PO 10/15/20 09:00 11/04/20 08:21 Magnesium Hydroxide (Milk Of Magnesia) 2,400 mg PRN DAILY PRN PO CONSTIPATION 10/14/20 21:00 10/25/20 20:04 Multi-Ingredient Ointment (Analgesic [place]) 1 rocio PRN Q6HRS PRN TP MUSCLE PAIN 10/14/20 21:00 Multivitamins/ Calcium (Thera-M Plus) 1 tab DAILY PO 10/15/20 09:00 11/04/20 08:21 Pantoprazole Sodium (Protonix) 40 mg BIDWMEALS PO 10/15/20 08:00 11/04/20 16:36 Potassium Chloride (Klor-Con) 10 meq DAILYWBKFT PO 10/15/20 08:00 11/04/20 08:22 Vitamin D (Vitamin D3) 500 unit DAILY PO 10/15/20 09:00 11/04/20 08:22 Acetaminophen (Tylenol) 650 mg PRN Q6HRS PRN PO MILD PAIN / TEMP > 100.3'F 10/14/20 23:15 10/14/20 23:34 DC Multi-Ingredient Ointment (Analgesic [place]) 1 rocio PRN QID PRN TP MUSCLE PAIN 10/14/20 23:15 10/16/20 08:37 DC Al Hydroxide/Mg Hydroxide (Mylanta Plus Xs) 15 ml PRN AFTMEALHC PRN PO DYSPEPSIA 10/14/20 23:15 10/14/20 23:39 DC Magnesium Hydroxide (Milk Of Magnesia) 2,400 mg PRN QHS PRN PO CONSTIPATION 10/14/20 23:15 10/14/20 23:39 DC Insulin Human Lispro (HumaLOG) 0-5 UNITS TIDWMEALS SQ 10/15/20 12:00 10/31/20 17:17 Ertapenem 1 gm/ Sodium Chloride 50 ml @ 100 mls/hr DAILY IV 10/20/20 09:00 10/28/20 22:00 DC 10/28/20 09:40 Insulin Glargine (Lantus Syringe) 20 unit DAILY SQ 10/21/20 17:00 11/04/20 08:28 Divalproex Sodium (Depakote Sprinkles) 500 mg 0900,1400 PO 10/23/20 09:00 10/29/20 18:37 DC 10/29/20 13:48 Nystatin (Nystop) 1 rocio BID TP 10/24/20 21:00 11/04/20 19:50 Divalproex Sodium (Depakote Sprinkles) 500 mg 0900,1400 PO 10/30/20 09:00 10/30/20 16:03 DC 10/30/20 12:45 Divalproex Sodium (Depakote Sprinkles) 750 mg HS PO 10/29/20 21:00 10/30/20 16:03 DC 10/29/20 20:27 Valproic Acid (Depakene) 750 mg QHS PO 10/30/20 21:00 10/31/20 15:02 DC 10/30/20 19:47 Valproic Acid (Depakene) 500 mg 0900,1400 PO 10/31/20 09:00 10/31/20 15:02 DC 10/31/20 13:36 Gabapentin (Neurontin Oral Soln) 100 mg BID PO 10/30/20 21:00 10/31/20 15:02 DC 10/31/20 08:26 Risperidone (RisperDAL) 0.5 mg BID PO 10/30/20 21:00 10/31/20 15:02 DC 10/31/20 08:29 Divalproex Sodium (Depakote Sprinkles) 750 mg HS PO 10/31/20 21:00 11/04/20 18:33 Divalproex Sodium (Depakote Sprinkles) 500 mg 0900,1400 PO 11/01/20 09:00 11/04/20 13:24 Risperidone (RisperDAL) 0.5 mg BID PO 10/31/20 21:00 11/04/20 18:34 Gabapentin (Neurontin) 100 mg BID PO 10/31/20 21:00 11/04/20 18:34 Vitamin A/Vitamin D (Vitamin A & D Ointment) 1 rocio BID76 TP 11/02/20 11:30 11/04/20 16:59 I have reviewed the current psychotropics carefully including drug interactions. Risk benefit ratio favors no change other than as noted in my dictated progress note. Diagnosis: Problems: (1) Schizoaffective disorder, bipolar type (2) Impulse control disorder, unspecified (3) Anxiety disorder, unspecified (4) Bipolar disorder, curr episode mixed, severe, with psychotic features CHAVO WANG MD Nov 04, 2020 21:53
--- NOTE | 2020-11-04 23:53 | NUR ---
Pt located in her room this evening laying calmly in bed. Compliant with HS medications. Continues to yell out during ADLs.
[2020-11-05 06:05] VITALS: BP 108/67
[2020-11-05] MEDS: VITS A & D/LANOLIN TOPICAL OINTMENT 42GM TUBE. TP SCH ×2 (07:00→18:00)
[2020-11-05 07:40] LABS: BASO % 0 % (0-3); EOS # 0.2 x10^3/uL (0.0-0.7); EOS % 3 % (0-3); HEMATOCRIT 31.6 % (36.0-47.0); HEMOGLOBIN 10.4 g/dL (12.0-15.5); LYMPH # 2.1 x10^3/uL (1.0-4.8); LYMPH % 32 % (24-48); MEAN CORPUSCULAR HEMOGLOBIN 30 pg (25-35); MEAN CORPUSCULAR HGB CONC 33 g/dL (31-37); MEAN CORPUSCULAR VOLUME 91 fL (79-100); MONO # 0.4 x10^3/uL (0.0-1.1); MONO % 6 % (0-9); NEUT # 3.9 x10^3uL (1.8-7.7); NEUT % 59 % (31-73); PLATELET COUNT 332 x10^3/uL (140-400); RED BLOOD COUNT 3.49 x10^6/uL (3.50-5.40); RED CELL DISTRIBUTION WIDTH 17.7 % (11.5-14.5); WHITE BLOOD COUNT 6.6 x10^3/uL (4.0-11.0)
[2020-11-05 07:56] LABS: ALBUMIN 2.3 g/dL (3.4-5.0); ALBUMIN/GLOBULIN RATIO 0.7 (1.0-1.7); CALCIUM 8.5 mg/dL (8.5-10.1); CREATININE 0.8 mg/dL (0.6-1.0); GFR 71.1; POTASSIUM 3.9 mmol/L (3.5-5.1); TOTAL BILIRUBIN 0.2 mg/dL (0.2-1.0); TOTAL PROTEIN 5.7 g/dL (6.4-8.2)
[2020-11-05] MEDS: INSULIN LISPRO 300 UNITS/3 ML VIAL. SQ SCH ×3 (08:00→17:00)
[2020-11-05] MEDS: NYSTATIN TOPICAL POWDER 15GM BOTTLE. TP SCH ×2 (08:15→20:27)
[2020-11-05] MEDS: LACTOBACILLUS RHAMNOSUS GG 1 CAPSULE. PO SCH (08:16)
[2020-11-05] MEDS: GABAPENTIN 100 MG CAPSULE. PO SCH ×2 (08:16→20:27)
[2020-11-05] MEDS: CHOLECALCIFEROL (VITAMIN D3) 1,000 UNIT TABLET PO SCH (08:17)
[2020-11-05] MEDS: metFORMIN 500 MG TABLET PO SCH ×2 (08:17→17:51)
[2020-11-05] MEDS: LINAGLIPTIN 5 MG TABLET PO SCH (08:17)
[2020-11-05] MEDS: DIVALPROEX 125 MG CAP.SPRINK PO SCH ×3 (08:17→20:27)
[2020-11-05] MEDS: PANTOPRAZOLE 40 MG TABLET. PO SCH ×2 (08:18→17:52)
[2020-11-05] MEDS: MULTIVITAMIN with MINERAL TABLET. PO SCH (08:18)
[2020-11-05] MEDS: SERTRALINE 50 MG TABLET. PO SCH (08:18)
[2020-11-05] MEDS: POTASSIUM CHLORIDE 10 MEQ TABLET.ER. PO SCH (08:18)
[2020-11-05] MEDS: ASPIRIN ENTERIC COATED 81 MG TABLET.DR. PO SCH (08:18)
[2020-11-05] MEDS: CYANOCOBALAMIN (VITAMIN B-12) 250 MCG TABLET. PO SCH (08:18)
[2020-11-05] MEDS: FUROSEMIDE 20 MG TABLET PO SCH (08:19)
[2020-11-05] MEDS: APIXABAN 5 MG TABLET. PO SCH ×2 (08:19→20:27)
[2020-11-05] MEDS: risperiDONE 0.25 MG TABLET. PO SCH ×2 (08:19→20:27)
[2020-11-05] MEDS: METOPROLOL SUCC 24HR ER 50 MG TAB.ER.24H. PO SCH (08:19)
--- NOTE | 2020-11-05 09:50 | PDOC ---
Exam Note: Edgar Note: This note is a late entry for 11/04/2020 covers elements not covered in my initial note. Subjective: The patient was seen individually in the evening of 11/04/2020 with Gennaro MELGAR, discussed and reviewed the chart. She slept 6 hours previous night. She has done well. I met with her in her room. Review of Systems: Ambulation impaired in wheelchair. No CV, , pulmonary, eye, ENT system symptoms on review. Mental Status Exam: The patient is reasonably oriented to herself. She is pleasant, verbal, interactive as I met with her. Speech is coherent. Abstract ion is fair. Computation impaired. Language function intact. Attention span short. Mood and affect anxious, labile. Laboratory Data: Reviewed. Impression: Schizoaffective disorder bipolar type. Impulse control disorder unspecified. Anxiety disorder unspecified. Plan: Continue rest of the psychotropics unchanged. Assessment: Vital Signs/I&O: Vital Signs Date Time Temp Pulse Resp B/P (MAP) Pulse Ox O2 Delivery O2 Flow Rate FiO2 11/05/20 08:19 86 108/67 11/05/20 06:05 97.2 16 94 Room Air I & O 11/04/20 11/04/20 11/05/20 15:00 23:00 07:00 Intake Total 600 ml 360 ml Balance 600 ml 360 ml Labs: Laboratory Tests Test 11/04/20 11:34 11/04/20 16:22 11/04/20 19:38 11/05/20 07:01 Glucose (Fingerstick) 102 mg/dL (70-99) H 84 mg/dL (70-99) 93 mg/dL (70-99) White Blood Count 6.6 x10^3/uL (4.0-11.0) Red Blood Count 3.49 x10^6/uL (3.50-5.40) L Hemoglobin 10.4 g/dL (12.0-15.5) L Hematocrit 31.6 % (36.0-47.0) L Mean Corpuscular Volume 91 fL (79-100) Mean Corpuscular Hemoglobin 30 pg (25-35) Mean Corpuscular Hemoglobin Concent 33 g/dL (31-37) Red Cell Distribution Width 17.7 % (11.5-14.5) H Platelet Count 332 x10^3/uL (140-400) Neutrophils (%) (Auto) 59 % (31-73) Lymphocytes (%) (Auto) 32 % (24-48) Monocytes (%) (Auto) 6 % (0-9) Eosinophils (%) (Auto) 3 % (0-3) Basophils (%) (Auto) 0 % (0-3) Neutrophils # (Auto) 3.9 x10^3uL (1.8-7.7) Lymphocytes # (Auto) 2.1 x10^3/uL (1.0-4.8) Monocytes # (Auto) 0.4 x10^3/uL (0.0-1.1) Eosinophils # (Auto) 0.2 x10^3/uL (0.0-0.7) Basophils # (Auto) 0.0 x10^3/uL (0.0-0.2) Sodium Level 142 mmol/L (136-145) Potassium Level 3.9 mmol/L (3.5-5.1) Chloride Level 107 mmol/L (98-107) Carbon Dioxide Level 27 mmol/L (21-32) Anion Gap 8 (6-14) Blood Urea Nitrogen 18 mg/dL (7-20) Creatinine 0.8 mg/dL (0.6-1.0) Estimated GFR (Cockcroft-Gault) 71.1 BUN/Creatinine Ratio 23 (6-20) H Glucose Level 85 mg/dL (70-99) Calcium Level 8.5 mg/dL (8.5-10.1) Total Bilirubin 0.2 mg/dL (0.2-1.0) Aspartate Amino Transferase (AST) 19 U/L (15-37) Alanine Aminotransferase (ALT) 21 U/L (14-59) Alkaline Phosphatase 64 U/L (46-116) Total Protein 5.7 g/dL (6.4-8.2) L Albumin 2.3 g/dL (3.4-5.0) L Albumin/Globulin Ratio 0.7 (1.0-1.7) L Test 11/05/20 07:28 Glucose (Fingerstick) 77 mg/dL (70-99) Current Medications: Meds: Laboratory Tests Test 11/04/20 11:34 11/04/20 16:22 11/04/20 19:38 11/05/20 07:01 Glucose (Fingerstick) 102 mg/dL 84 mg/dL 93 mg/dL White Blood Count 6.6 x10^3/uL Red Blood Count 3.49 x10^6/uL Hemoglobin 10.4 g/dL Hematocrit 31.6 % Mean Corpuscular Volume 91 fL Mean Corpuscular Hemoglobin 30 pg Mean Corpuscular Hemoglobin Concent 33 g/dL Red Cell Distribution Width 17.7 % Platelet Count 332 x10^3/uL Neutrophils (%) (Auto) 59 % Lymphocytes (%) (Auto) 32 % Monocytes (%) (Auto) 6 % Eosinophils (%) (Auto) 3 % Basophils (%) (Auto) 0 % Neutrophils # (Auto) 3.9 x10^3uL Lymphocytes # (Auto) 2.1 x10^3/uL Monocytes # (Auto) 0.4 x10^3/uL Eosinophils # (Auto) 0.2 x10^3/uL Basophils # (Auto) 0.0 x10^3/uL Sodium Level 142 mmol/L Potassium Level 3.9 mmol/L Chloride Level 107 mmol/L Carbon Dioxide Level 27 mmol/L Anion Gap 8 Blood Urea Nitrogen 18 mg/dL Creatinine 0.8 mg/dL Estimated GFR (Cockcroft-Gault) 71.1 BUN/Creatinine Ratio 23 Glucose Level 85 mg/dL Calcium Level 8.5 mg/dL Total Bilirubin 0.2 mg/dL Aspartate Amino Transf (AST/SGOT) 19 U/L Alanine Aminotransferase (ALT/SGPT) 21 U/L Alkaline Phosphatase 64 U/L Total Protein 5.7 g/dL Albumin 2.3 g/dL Albumin/Globulin Ratio 0.7 Test 11/05/20 07:28 Glucose (Fingerstick) 77 mg/dL Current Medications Medications (Trade) Dose Ordered Sig/Alexx Route PRN Reason Start Time Stop Time Status Last Admin Dose Admin Acetaminophen (Tylenol) 650 mg PRN Q6HRS PRN PO MILD PAIN / TEMP > 100.3'F 10/14/20 20:15 Apixaban (Eliquis) 5 mg BID PO 10/14/20 21:00 11/05/20 08:19 Aspirin (Aspirin Enteric Coated) 81 mg DAILY PO 10/15/20 09:00 11/05/20 08:18 Aspirin (Aspirin Enteric Coated) 81 mg DAILY PO 10/15/20 09:00 UNV Divalproex Sodium (Depakote Sprinkles) 500 mg 0900,1300,1700 PO 10/15/20 09:00 10/22/20 17:40 DC 10/22/20 13:11 Divalproex Sodium (Depakote Sprinkles) 750 mg HS PO 10/14/20 21:00 10/29/20 18:37 DC 10/28/20 20:58 Furosemide (Lasix) 20 mg DAILY PO 10/15/20 09:00 11/05/20 08:19 Gabapentin (Neurontin) 100 mg BID PO 10/14/20 21:00 10/30/20 16:03 DC 10/30/20 08:37 Acetaminophen/ Hydrocodone Bitart (Lortab 5325) 1 tab PRN Q4HRS PRN PO MODERATE PAIN, SEVERE PAIN 10/14/20 20:15 10/24/20 17:49 Hydroxyzine HCl (Atarax) 25 mg PRN TID PRN PO ITCHING 10/14/20 21:00 11/01/20 20:15 Insulin Human Lispro (HumaLOG) 1 units TIDWMEALS SQ 10/15/20 08:00 Cancel Linagliptin (Tradjenta) 5 mg DAILY PO 10/15/20 09:00 11/05/20 08:17 Al Hydroxide/Mg Hydroxide (Mylanta Plus Xs) 15 ml PRN BFRMEALHC PRN PO DYSPEPSIA 10/14/20 20:15 Melatonin (Melatonin) 3 mg HS PO 10/14/20 21:00 11/04/20 18:33 Metformin HCl (Glucophage) 750 mg BIDWMEALS PO 10/15/20 08:00 11/05/20 08:17 Metoprolol Succinate (Toprol Xl) 50 mg DAILY PO 10/15/20 09:00 11/04/20 08:23 Nystatin (Nystop) 15 rocio BID TP 10/14/20 21:00 10/24/20 19:29 DC 10/24/20 09:30 Risperidone (RisperDAL) 0.5 mg BID PO 10/14/20 21:00 10/30/20 16:03 DC 10/30/20 08:35 Sertraline HCl (Zoloft) 50 mg DAILY PO 10/15/20 09:00 11/05/20 08:18 Atorvastatin Calcium (Lipitor) 40 mg QHS PO 10/14/20 21:00 11/04/20 18:34 Cyanocobalamin (Vitamin B-12) 500 mcg DAILY PO 10/15/20 09:00 11/05/20 08:18 Insulin Glargine (Lantus Syringe) 35 unit DAILY SQ 10/15/20 09:00 10/21/20 16:52 DC 10/21/20 10:03 Lactobacillus Rhamnosus (Culturelle) 1 cap DAILY PO 10/15/20 09:00 11/05/20 08:16 Magnesium Hydroxide (Milk Of Magnesia) 2,400 mg PRN DAILY PRN PO CONSTIPATION 10/14/20 21:00 10/25/20 20:04 Multi-Ingredient Ointment (Analgesic [place]) 1 rocio PRN Q6HRS PRN TP MUSCLE PAIN 10/14/20 21:00 Multivitamins/ Calcium (Thera-M Plus) 1 tab DAILY PO 10/15/20 09:00 11/05/20 08:18 Pantoprazole Sodium (Protonix) 40 mg BIDWMEALS PO 10/15/20 08:00 11/05/20 08:18 Potassium Chloride (Klor-Con) 10 meq DAILYWBKFT PO 10/15/20 08:00 11/05/20 08:18 Vitamin D (Vitamin D3) 500 unit DAILY PO 10/15/20 09:00 11/05/20 08:17 Acetaminophen (Tylenol) 650 mg PRN Q6HRS PRN PO MILD PAIN / TEMP > 100.3'F 10/14/20 23:15 10/14/20 23:34 DC Multi-Ingredient Ointment (Analgesic [place]) 1 rocio PRN QID PRN TP MUSCLE PAIN 10/14/20 23:15 10/16/20 08:37 DC Al Hydroxide/Mg Hydroxide (Mylanta Plus Xs) 15 ml PRN AFTMEALHC PRN PO DYSPEPSIA 10/14/20 23:15 10/14/20 23:39 DC Magnesium Hydroxide (Milk Of Magnesia) 2,400 mg PRN QHS PRN PO CONSTIPATION 10/14/20 23:15 10/14/20 23:39 DC Insulin Human Lispro (HumaLOG) 0-5 UNITS TIDWMEALS SQ 10/15/20 12:00 10/31/20 17:17 Ertapenem 1 gm/ Sodium Chloride 50 ml @ 100 mls/hr DAILY IV 10/20/20 09:00 10/28/20 22:00 DC 10/28/20 09:40 Insulin Glargine (Lantus Syringe) 20 unit DAILY SQ 10/21/20 17:00 11/04/20 08:28 Divalproex Sodium (Depakote Sprinkles) 500 mg 0900,1400 PO 10/23/20 09:00 10/29/20 18:37 DC 10/29/20 13:48 Nystatin (Nystop) 1 rocio BID TP 10/24/20 21:00 11/05/20 08:15 Divalproex Sodium (Depakote Sprinkles) 500 mg 0900,1400 PO 10/30/20 09:00 10/30/20 16:03 DC 10/30/20 12:45 Divalproex Sodium (Depakote Sprinkles) 750 mg HS PO 10/29/20 21:00 10/30/20 16:03 DC 10/29/20 20:27 Valproic Acid (Depakene) 750 mg QHS PO 10/30/20 21:00 10/31/20 15:02 DC 10/30/20 19:47 Valproic Acid (Depakene) 500 mg 0900,1400 PO 10/31/20 09:00 10/31/20 15:02 DC 10/31/20 13:36 Gabapentin (Neurontin Oral Soln) 100 mg BID PO 10/30/20 21:00 10/31/20 15:02 DC 10/31/20 08:26 Risperidone (RisperDAL) 0.5 mg BID PO 10/30/20 21:00 10/31/20 15:02 DC 10/31/20 08:29 Divalproex Sodium (Depakote Sprinkles) 750 mg HS PO 10/31/20 21:00 11/04/20 18:33 Divalproex Sodium (Depakote Sprinkles) 500 mg 0900,1400 PO 11/01/20 09:00 11/05/20 08:17 Risperidone (RisperDAL) 0.5 mg BID PO 10/31/20 21:00 11/05/20 08:19 Gabapentin (Neurontin) 100 mg BID PO 10/31/20 21:00 11/05/20 08:16 Vitamin A/Vitamin D (Vitamin A & D Ointment) 1 rocio BID76 TP 11/02/20 11:30 11/05/20 07:00 I have reviewed the current psychotropics carefully including drug interactions. Risk benefit ratio favors no change other than as noted in my dictated progress note. Diagnosis: Problems: (1) Schizoaffective disorder, bipolar type (2) Impulse control disorder, unspecified (3) Anxiety disorder, unspecified (4) Bipolar disorder, curr episode mixed, severe, with psychotic features CHAVO WANG MD Nov 05, 2020 09:50
[2020-11-05] MEDS: INSULIN GLARGINE SYRINGE. SQ SCH (09:53)
[2020-11-05 16:00] VITALS: BP 101/67
[2020-11-05] MEDS: hydrOXYzine HCL 25 MG TABLET PO PRN (18:19)
[2020-11-05] MEDS: ATORVASTATIN CALCIUM 20 MG TABLET PO SCH (20:27)
[2020-11-05] MEDS: MELATONIN 3 MG TABLET PO SCH (20:27)
--- NOTE | 2020-11-05 21:54 | PDOC ---
Exam Note: Edgar Note: Please also refer to the separate dictated note~for this date of service dictated separately.~Patient seen individually. Discussed the patient with Nursing staff reviewed the chart.~Reviewed interim history and current functioning. Reviewed vital signs,~Labs/ Radiology~and current medications noted below. Continue current treatment with the changes noted in the dictated addendum note Assessment: Vital Signs/I&O: Vital Signs Date Time Temp Pulse Resp B/P (MAP) Pulse Ox O2 Delivery O2 Flow Rate FiO2 11/05/20 16:00 97.2 90 18 101/67 (78) 92 11/05/20 06:05 Room Air I & O 11/04/20 11/04/20 11/05/20 15:00 23:00 07:00 Intake Total 600 ml 360 ml Balance 600 ml 360 ml Labs: Laboratory Tests Test 11/05/20 07:01 11/05/20 07:28 11/05/20 11:30 11/05/20 16:42 White Blood Count 6.6 x10^3/uL (4.0-11.0) Red Blood Count 3.49 x10^6/uL (3.50-5.40) L Hemoglobin 10.4 g/dL (12.0-15.5) L Hematocrit 31.6 % (36.0-47.0) L Mean Corpuscular Volume 91 fL (79-100) Mean Corpuscular Hemoglobin 30 pg (25-35) Mean Corpuscular Hemoglobin Concent 33 g/dL (31-37) Red Cell Distribution Width 17.7 % (11.5-14.5) H Platelet Count 332 x10^3/uL (140-400) Neutrophils (%) (Auto) 59 % (31-73) Lymphocytes (%) (Auto) 32 % (24-48) Monocytes (%) (Auto) 6 % (0-9) Eosinophils (%) (Auto) 3 % (0-3) Basophils (%) (Auto) 0 % (0-3) Neutrophils # (Auto) 3.9 x10^3uL (1.8-7.7) Lymphocytes # (Auto) 2.1 x10^3/uL (1.0-4.8) Monocytes # (Auto) 0.4 x10^3/uL (0.0-1.1) Eosinophils # (Auto) 0.2 x10^3/uL (0.0-0.7) Basophils # (Auto) 0.0 x10^3/uL (0.0-0.2) Sodium Level 142 mmol/L (136-145) Potassium Level 3.9 mmol/L (3.5-5.1) Chloride Level 107 mmol/L (98-107) Carbon Dioxide Level 27 mmol/L (21-32) Anion Gap 8 (6-14) Blood Urea Nitrogen 18 mg/dL (7-20) Creatinine 0.8 mg/dL (0.6-1.0) Estimated GFR (Cockcroft-Gault) 71.1 BUN/Creatinine Ratio 23 (6-20) H Glucose Level 85 mg/dL (70-99) Calcium Level 8.5 mg/dL (8.5-10.1) Total Bilirubin 0.2 mg/dL (0.2-1.0) Aspartate Amino Transferase (AST) 19 U/L (15-37) Alanine Aminotransferase (ALT) 21 U/L (14-59) Alkaline Phosphatase 64 U/L (46-116) Total Protein 5.7 g/dL (6.4-8.2) L Albumin 2.3 g/dL (3.4-5.0) L Albumin/Globulin Ratio 0.7 (1.0-1.7) L Glucose (Fingerstick) 77 mg/dL (70-99) 184 mg/dL (70-99) H 149 mg/dL (70-99) H Test 11/05/20 19:15 Glucose (Fingerstick) 154 mg/dL (70-99) H Current Medications: Meds: Laboratory Tests Test 11/05/20 07:01 11/05/20 07:28 11/05/20 11:30 11/05/20 16:42 White Blood Count 6.6 x10^3/uL Red Blood Count 3.49 x10^6/uL Hemoglobin 10.4 g/dL Hematocrit 31.6 % Mean Corpuscular Volume 91 fL Mean Corpuscular Hemoglobin 30 pg Mean Corpuscular Hemoglobin Concent 33 g/dL Red Cell Distribution Width 17.7 % Platelet Count 332 x10^3/uL Neutrophils (%) (Auto) 59 % Lymphocytes (%) (Auto) 32 % Monocytes (%) (Auto) 6 % Eosinophils (%) (Auto) 3 % Basophils (%) (Auto) 0 % Neutrophils # (Auto) 3.9 x10^3uL Lymphocytes # (Auto) 2.1 x10^3/uL Monocytes # (Auto) 0.4 x10^3/uL Eosinophils # (Auto) 0.2 x10^3/uL Basophils # (Auto) 0.0 x10^3/uL Sodium Level 142 mmol/L Potassium Level 3.9 mmol/L Chloride Level 107 mmol/L Carbon Dioxide Level 27 mmol/L Anion Gap 8 Blood Urea Nitrogen 18 mg/dL Creatinine 0.8 mg/dL Estimated GFR (Cockcroft-Gault) 71.1 BUN/Creatinine Ratio 23 Glucose Level 85 mg/dL Calcium Level 8.5 mg/dL Total Bilirubin 0.2 mg/dL Aspartate Amino Transf (AST/SGOT) 19 U/L Alanine Aminotransferase (ALT/SGPT) 21 U/L Alkaline Phosphatase 64 U/L Total Protein 5.7 g/dL Albumin 2.3 g/dL Albumin/Globulin Ratio 0.7 Glucose (Fingerstick) 77 mg/dL 184 mg/dL 149 mg/dL Test 11/05/20 19:15 Glucose (Fingerstick) 154 mg/dL Current Medications Medications (Trade) Dose Ordered Sig/Alexx Route PRN Reason Start Time Stop Time Status Last Admin Dose Admin Acetaminophen (Tylenol) 650 mg PRN Q6HRS PRN PO MILD PAIN / TEMP > 100.3'F 10/14/20 20:15 Apixaban (Eliquis) 5 mg BID PO 10/14/20 21:00 11/05/20 20:27 Aspirin (Aspirin Enteric Coated) 81 mg DAILY PO 10/15/20 09:00 11/05/20 08:18 Aspirin (Aspirin Enteric Coated) 81 mg DAILY PO 10/15/20 09:00 UNV Divalproex Sodium (Depakote Sprinkles) 500 mg 0900,1300,1700 PO 10/15/20 09:00 10/22/20 17:40 DC 10/22/20 13:11 Divalproex Sodium (Depakote Sprinkles) 750 mg HS PO 10/14/20 21:00 10/29/20 18:37 DC 10/28/20 20:58 Furosemide (Lasix) 20 mg DAILY PO 10/15/20 09:00 11/05/20 08:19 Gabapentin (Neurontin) 100 mg BID PO 10/14/20 21:00 10/30/20 16:03 DC 10/30/20 08:37 Acetaminophen/ Hydrocodone Bitart (Lortab 5/325) 1 tab PRN Q4HRS PRN PO MODERATE PAIN, SEVERE PAIN 10/14/20 20:15 10/24/20 17:49 Hydroxyzine HCl (Atarax) 25 mg PRN TID PRN PO ITCHING 10/14/20 21:00 11/05/20 18:19 Insulin Human Lispro (HumaLOG) 1 units TIDWMEALS SQ 10/15/20 08:00 Cancel Linagliptin (Tradjenta) 5 mg DAILY PO 10/15/20 09:00 11/05/20 08:17 Al Hydroxide/Mg Hydroxide (Mylanta Plus Xs) 15 ml PRN BFRMEALHC PRN PO DYSPEPSIA 10/14/20 20:15 Melatonin (Melatonin) 3 mg HS PO 10/14/20 21:00 11/05/20 20:27 Metformin HCl (Glucophage) 750 mg BIDWMEALS PO 10/15/20 08:00 11/05/20 17:51 Metoprolol Succinate (Toprol Xl) 50 mg DAILY PO 10/15/20 09:00 11/04/20 08:23 Nystatin (Nystop) 15 rocio BID TP 10/14/20 21:00 10/24/20 19:29 DC 10/24/20 09:30 Risperidone (RisperDAL) 0.5 mg BID PO 10/14/20 21:00 10/30/20 16:03 DC 10/30/20 08:35 Sertraline HCl (Zoloft) 50 mg DAILY PO 10/15/20 09:00 11/05/20 08:18 Atorvastatin Calcium (Lipitor) 40 mg QHS PO 10/14/20 21:00 11/05/20 20:27 Cyanocobalamin (Vitamin B-12) 500 mcg DAILY PO 10/15/20 09:00 11/05/20 08:18 Insulin Glargine (Lantus Syringe) 35 unit DAILY SQ 10/15/20 09:00 10/21/20 16:52 DC 10/21/20 10:03 Lactobacillus Rhamnosus (Culturelle) 1 cap DAILY PO 10/15/20 09:00 11/05/20 08:16 Magnesium Hydroxide (Milk Of Magnesia) 2,400 mg PRN DAILY PRN PO CONSTIPATION 10/14/20 21:00 10/25/20 20:04 Multi-Ingredient Ointment (Analgesic [place]) 1 rocio PRN Q6HRS PRN TP MUSCLE PAIN 10/14/20 21:00 Multivitamins/ Calcium (Thera-M Plus) 1 tab DAILY PO 10/15/20 09:00 11/05/20 08:18 Pantoprazole Sodium (Protonix) 40 mg BIDWMEALS PO 10/15/20 08:00 11/05/20 17:52 Potassium Chloride (Klor-Con) 10 meq DAILYWBKFT PO 10/15/20 08:00 11/05/20 08:18 Vitamin D (Vitamin D3) 500 unit DAILY PO 10/15/20 09:00 11/05/20 08:17 Acetaminophen (Tylenol) 650 mg PRN Q6HRS PRN PO MILD PAIN / TEMP > 100.3'F 10/14/20 23:15 10/14/20 23:34 DC Multi-Ingredient Ointment (Analgesic [place]) 1 rocio PRN QID PRN TP MUSCLE PAIN 10/14/20 23:15 10/16/20 08:37 DC Al Hydroxide/Mg Hydroxide (Mylanta Plus Xs) 15 ml PRN AFTMEALHC PRN PO DYSPEPSIA 10/14/20 23:15 10/14/20 23:39 DC Magnesium Hydroxide (Milk Of Magnesia) 2,400 mg PRN QHS PRN PO CONSTIPATION 10/14/20 23:15 10/14/20 23:39 DC Insulin Human Lispro (HumaLOG) 0-5 UNITS TIDWMEALS SQ 10/15/20 12:00 11/05/20 12:17 Ertapenem 1 gm/ Sodium Chloride 50 ml @ 100 mls/hr DAILY IV 10/20/20 09:00 10/28/20 22:00 DC 10/28/20 09:40 Insulin Glargine (Lantus Syringe) 20 unit DAILY SQ 10/21/20 17:00 11/05/20 09:53 Divalproex Sodium (Depakote Sprinkles) 500 mg 0900,1400 PO 10/23/20 09:00 10/29/20 18:37 DC 10/29/20 13:48 Nystatin (Nystop) 1 rocio BID TP 10/24/20 21:00 11/05/20 20:27 Divalproex Sodium (Depakote Sprinkles) 500 mg 0900,1400 PO 10/30/20 09:00 10/30/20 16:03 DC 10/30/20 12:45 Divalproex Sodium (Depakote Sprinkles) 750 mg HS PO 10/29/20 21:00 10/30/20 16:03 DC 10/29/20 20:27 Valproic Acid (Depakene) 750 mg QHS PO 10/30/20 21:00 10/31/20 15:02 DC 10/30/20 19:47 Valproic Acid (Depakene) 500 mg 0900,1400 PO 10/31/20 09:00 10/31/20 15:02 DC 10/31/20 13:36 Gabapentin (Neurontin Oral Soln) 100 mg BID PO 10/30/20 21:00 10/31/20 15:02 DC 10/31/20 08:26 Risperidone (RisperDAL) 0.5 mg BID PO 10/30/20 21:00 10/31/20 15:02 DC 10/31/20 08:29 Divalproex Sodium (Depakote Sprinkles) 750 mg HS PO 10/31/20 21:00 11/05/20 20:27 Divalproex Sodium (Depakote Sprinkles) 500 mg 0900,1400 PO 11/01/20 09:00 11/05/20 15:01 Risperidone (RisperDAL) 0.5 mg BID PO 10/31/20 21:00 11/05/20 20:27 Gabapentin (Neurontin) 100 mg BID PO 10/31/20 21:00 11/05/20 20:27 Vitamin A/Vitamin D (Vitamin A & D Ointment) 1 rocio [id number] TP 11/02/20 11:30 11/05/20 18:00 I have reviewed the current psychotropics carefully including drug interactions. Risk benefit ratio favors no change other than as noted in my dictated progress note. Diagnosis: Problems: (1) Schizoaffective disorder, bipolar type (2) Impulse control disorder, unspecified (3) Anxiety disorder, unspecified (4) Bipolar disorder, curr episode mixed, severe, with psychotic features CHAVO WANG MD Nov 05, 2020 21:54
--- NOTE | 2020-11-05 22:43 | NUR ---
Pt located in her room sitting in her wheelchair. Compliant with crushed medications. Less yelling with ADLs.
[2020-11-06 05:45] VITALS: BP 112/69
[2020-11-06] MEDS: DIVALPROEX 125 MG CAP.SPRINK PO SCH ×3 (08:11→20:08)
[2020-11-06] MEDS: FUROSEMIDE 20 MG TABLET PO SCH (08:12)
[2020-11-06] MEDS: risperiDONE 0.25 MG TABLET. PO SCH ×2 (08:12→20:07)
[2020-11-06] MEDS: APIXABAN 5 MG TABLET. PO SCH ×2 (08:13→20:07)
[2020-11-06] MEDS: MULTIVITAMIN with MINERAL TABLET. PO SCH (08:13)
[2020-11-06] MEDS: PANTOPRAZOLE 40 MG TABLET. PO SCH ×2 (08:13→17:11)
[2020-11-06] MEDS: metFORMIN 500 MG TABLET PO SCH ×2 (08:13→17:12)
[2020-11-06] MEDS: METOPROLOL SUCC 24HR ER 50 MG TAB.ER.24H. PO SCH (08:13)
[2020-11-06] MEDS: CYANOCOBALAMIN (VITAMIN B-12) 250 MCG TABLET. PO SCH (08:13)
[2020-11-06] MEDS: SERTRALINE 50 MG TABLET. PO SCH (08:13)
[2020-11-06] MEDS: LACTOBACILLUS RHAMNOSUS GG 1 CAPSULE. PO SCH (08:13)
[2020-11-06] MEDS: GABAPENTIN 100 MG CAPSULE. PO SCH ×2 (08:13→20:12)
[2020-11-06] MEDS: ASPIRIN ENTERIC COATED 81 MG TABLET.DR. PO SCH (08:13)
[2020-11-06] MEDS: CHOLECALCIFEROL (VITAMIN D3) 1,000 UNIT TABLET PO SCH (08:14)
[2020-11-06] MEDS: LINAGLIPTIN 5 MG TABLET PO SCH (08:14)
[2020-11-06] MEDS: POTASSIUM CHLORIDE 10 MEQ TABLET.ER. PO SCH (08:14)
[2020-11-06] MEDS: VITS A & D/LANOLIN TOPICAL OINTMENT 42GM TUBE. TP SCH ×2 (08:14→17:12)
[2020-11-06] MEDS: NYSTATIN TOPICAL POWDER 15GM BOTTLE. TP SCH ×2 (08:15→20:08)
[2020-11-06] MEDS: INSULIN LISPRO 300 UNITS/3 ML VIAL. SQ SCH ×3 (08:20→17:11)
--- NOTE | 2020-11-06 09:20 | PDOC ---
Exam Note: Edgar Note: This note is a late entry for 11/05/2020 covers elements not covered in my initial note. Subjective: The patient was seen individually in the evening of 11/05/2020 with Estephanie MELGAR, discussed and reviewed the chart. She slept 7-1/4 hours previous night. No yelling noted. I met with her in her room. She was pleasant, cooperative, appreciative of my visit. Review of Systems: Ambulation impaired in wheelchair. No CV, , pulmonary, eye, ENT system symptoms on review. Mental Status Exam: The patient is reasonably oriented to herself. Speech is coherent. Abstraction is fair. Computation impaired. Language function intact. Attention span short. Mood and affect anxious, labile. Laboratory Data: Reviewed. Impression: Schizoaffective disorder bipolar type. Impulse control disorder unspecified. Anxiety disorder unspecified. Plan: Continue rest of the psychotropics unchanged. Assessment: Vital Signs/I&O: Vital Signs Date Time Temp Pulse Resp B/P (MAP) Pulse Ox O2 Delivery O2 Flow Rate FiO2 11/06/20 08:13 74 112/69 11/06/20 05:45 97.3 18 94 11/05/20 06:05 Room Air I & O 11/05/20 11/05/20 11/06/20 15:00 23:00 07:00 Intake Total 720 ml 360 ml Balance 720 ml 360 ml Labs: Laboratory Tests Test 11/05/20 11:30 11/05/20 16:42 11/05/20 19:15 11/06/20 07:27 Glucose (Fingerstick) 184 mg/dL (70-99) H 149 mg/dL (70-99) H 154 mg/dL (70-99) H 172 mg/dL (70-99) H Current Medications: Meds: Laboratory Tests Test 11/05/20 11:30 11/05/20 16:42 11/05/20 19:15 11/06/20 07:27 Glucose (Fingerstick) 184 mg/dL 149 mg/dL 154 mg/dL 172 mg/dL Current Medications Medications (Trade) Dose Ordered Sig/Alexx Route PRN Reason Start Time Stop Time Status Last Admin Dose Admin Acetaminophen (Tylenol) 650 mg PRN Q6HRS PRN PO MILD PAIN / TEMP > 100.3'F 10/14/20 20:15 Apixaban (Eliquis) 5 mg BID PO 10/14/20 21:00 11/06/20 08:13 Aspirin (Aspirin Enteric Coated) 81 mg DAILY PO 10/15/20 09:00 11/06/20 08:13 Aspirin (Aspirin Enteric Coated) 81 mg DAILY PO 10/15/20 09:00 UNV Divalproex Sodium (Depakote Sprinkles) 500 mg 0900,1300,1700 PO 10/15/20 09:00 10/22/20 17:40 DC 10/22/20 13:11 Divalproex Sodium (Depakote Sprinkles) 750 mg HS PO 10/14/20 21:00 10/29/20 18:37 DC 10/28/20 20:58 Furosemide (Lasix) 20 mg DAILY PO 10/15/20 09:00 11/06/20 08:12 Gabapentin (Neurontin) 100 mg BID PO 10/14/20 21:00 10/30/20 16:03 DC 10/30/20 08:37 Acetaminophen/ Hydrocodone Bitart (Lortab 5/325) 1 tab PRN Q4HRS PRN PO MODERATE PAIN, SEVERE PAIN 10/14/20 20:15 10/24/20 17:49 Hydroxyzine HCl (Atarax) 25 mg PRN TID PRN PO ITCHING 10/14/20 21:00 11/05/20 18:19 Insulin Human Lispro (HumaLOG) 1 units TIDWMEALS SQ 10/15/20 08:00 Cancel Linagliptin (Tradjenta) 5 mg DAILY PO 10/15/20 09:00 11/06/20 08:14 Al Hydroxide/Mg Hydroxide (Mylanta Plus Xs) 15 ml PRN BFRMEALHC PRN PO DYSPEPSIA 10/14/20 20:15 Melatonin (Melatonin) 3 mg HS PO 10/14/20 21:00 11/05/20 20:27 Metformin HCl (Glucophage) 750 mg BIDWMEALS PO 10/15/20 08:00 11/06/20 08:13 Metoprolol Succinate (Toprol Xl) 50 mg DAILY PO 10/15/20 09:00 11/06/20 08:13 Nystatin (Nystop) 15 rocio BID TP 10/14/20 21:00 10/24/20 19:29 DC 10/24/20 09:30 Risperidone (RisperDAL) 0.5 mg BID PO 10/14/20 21:00 10/30/20 16:03 DC 10/30/20 08:35 Sertraline HCl (Zoloft) 50 mg DAILY PO 10/15/20 09:00 11/06/20 08:13 Atorvastatin Calcium (Lipitor) 40 mg QHS PO 10/14/20 21:00 11/05/20 20:27 Cyanocobalamin (Vitamin B-12) 500 mcg DAILY PO 10/15/20 09:00 11/06/20 08:13 Insulin Glargine (Lantus Syringe) 35 unit DAILY SQ 10/15/20 09:00 10/21/20 16:52 DC 10/21/20 10:03 Lactobacillus Rhamnosus (Culturelle) 1 cap DAILY PO 10/15/20 09:00 11/06/20 08:13 Magnesium Hydroxide (Milk Of Magnesia) 2,400 mg PRN DAILY PRN PO CONSTIPATION 10/14/20 21:00 10/25/20 20:04 Multi-Ingredient Ointment (Analgesic Icard) 1 rocio PRN Q6HRS PRN TP MUSCLE PAIN 10/14/20 21:00 Multivitamins/ Calcium (Thera-M Plus) 1 tab DAILY PO 10/15/20 09:00 11/06/20 08:13 Pantoprazole Sodium (Protonix) 40 mg BIDWMEALS PO 10/15/20 08:00 11/06/20 08:13 Potassium Chloride (Klor-Con) 10 meq DAILYWBKFT PO 10/15/20 08:00 11/06/20 08:14 Vitamin D (Vitamin D3) 500 unit DAILY PO 10/15/20 09:00 11/06/20 08:14 Acetaminophen (Tylenol) 650 mg PRN Q6HRS PRN PO MILD PAIN / TEMP > 100.3'F 10/14/20 23:15 10/14/20 23:34 DC Multi-Ingredient Ointment (Analgesic Icard) 1 rocio PRN QID PRN TP MUSCLE PAIN 10/14/20 23:15 10/16/20 08:37 DC Al Hydroxide/Mg Hydroxide (Mylanta Plus Xs) 15 ml PRN AFTMEALHC PRN PO DYSPEPSIA 10/14/20 23:15 10/14/20 23:39 DC Magnesium Hydroxide (Milk Of Magnesia) 2,400 mg PRN QHS PRN PO CONSTIPATION 10/14/20 23:15 10/14/20 23:39 DC Insulin Human Lispro (HumaLOG) 0-5 UNITS TIDWMEALS SQ 10/15/20 12:00 11/06/20 08:20 Ertapenem 1 gm/ Sodium Chloride 50 ml @ 100 mls/hr DAILY IV 10/20/20 09:00 10/28/20 22:00 DC 10/28/20 09:40 Insulin Glargine (Lantus Syringe) 20 unit DAILY SQ 10/21/20 17:00 11/05/20 09:53 Divalproex Sodium (Depakote Sprinkles) 500 mg 0900,1400 PO 10/23/20 09:00 10/29/20 18:37 DC 10/29/20 13:48 Nystatin (Nystop) 1 rocoi BID TP 10/24/20 21:00 11/06/20 08:15 Divalproex Sodium (Depakote Sprinkles) 500 mg 0900,1400 PO 10/30/20 09:00 10/30/20 16:03 DC 10/30/20 12:45 Divalproex Sodium (Depakote Sprinkles) 750 mg HS PO 10/29/20 21:00 10/30/20 16:03 DC 10/29/20 20:27 Valproic Acid (Depakene) 750 mg QHS PO 10/30/20 21:00 10/31/20 15:02 DC 10/30/20 19:47 Valproic Acid (Depakene) 500 mg 0900,1400 PO 10/31/20 09:00 10/31/20 15:02 DC 10/31/20 13:36 Gabapentin (Neurontin Oral Soln) 100 mg BID PO 10/30/20 21:00 10/31/20 15:02 DC 10/31/20 08:26 Risperidone (RisperDAL) 0.5 mg BID PO 10/30/20 21:00 10/31/20 15:02 DC 10/31/20 08:29 Divalproex Sodium (Depakote Sprinkles) 750 mg HS PO 10/31/20 21:00 11/05/20 20:27 Divalproex Sodium (Depakote Sprinkles) 500 mg 0900,1400 PO 11/01/20 09:00 11/06/20 08:11 Risperidone (RisperDAL) 0.5 mg BID PO 10/31/20 21:00 11/06/20 08:12 Gabapentin (Neurontin) 100 mg BID PO 10/31/20 21:00 11/06/20 08:13 Vitamin A/Vitamin D (Vitamin A & D Ointment) 1 rocio BID76 TP 11/02/20 11:30 11/06/20 08:14 I have reviewed the current psychotropics carefully including drug interactions. Risk benefit ratio favors no change other than as noted in my dictated progress note. Diagnosis: Problems: (1) Schizoaffective disorder, bipolar type (2) Impulse control disorder, unspecified (3) Anxiety disorder, unspecified (4) Bipolar disorder, curr episode mixed, severe, with psychotic features CHAVO WANG MD Nov 06, 2020 09:20
[2020-11-06] MEDS: INSULIN GLARGINE SYRINGE. SQ SCH (10:00)
--- NOTE | 2020-11-06 13:10 | NUR ---
WEEKLY ACTIVITY THERAPY NOTE Date of Admission: 10/14/20 Date of AT Assessment: 10/16 Precipitating behaviors that initiated intake and admission: yelling out, name calling, belligerent, verbally aggressive, cursing, socially disruptive, agitated, resistant to cares Goal aimed:support socialization and engagement Initial Goal: Pt will participate in at least three individual or group Activity Therapy sessions per week. Weekly progress towards goal: did not achieve, 0/3 Group participation level: none Weekly highlights: Behaviors observed: withdrawn to room, limited interest in groups Plan: no change to goal-pending discharge Wednesday 11/08, otherwise change goal to: Pt will participate in at least three individual or group Activity Therapy sessions before discharge. Beneficial adaptations:
--- NOTE | 2020-11-06 15:41 | TX PLAN ---
Interdisciplinary Tx Plan Admission Information October 14, 2020 at 07:30 Legal Status (on Admission): Voluntary DPOA/Guardian Name: Jerman Carrera Contact Other Contact Name: [facility] Other Contact Verified Code Status: Full Code Allergies: Coded Allergies: I S O L A T I O N *CONTACT* (Verified Allergy, Unknown, 06/21/20) ESBL amoxicillin (Verified Allergy, Unknown, 06/16/20) clavulanic acid (Verified Allergy, Unknown, 06/16/20) doxycycline (Verified Allergy, Unknown, 06/16/20) Diagnoses Primary Diagnosis: Schizoaffective D/O, Bipolar type Reasons for Admission: Aggressive, Angry, Combative, Confusion/Disoriented Problem in Patient's Words: Needs further medication evaluation Additional Admission Comments: According to the intake pt is refusing showers and baths, threatening to kick other's asses, yelling out, name calling peers, belligerent, verbally aggressive, cursing, socially disruptive, agitated, bangs on the duncan, throwing things during outbursts. Problems Active Problems: Agitated possible UTI attention-seeking Inactive Problems: medication mgmt redirectable Pt Strengths/Limitations Ability for [place]: Poor Cognitive Functioning/Ability: Poor Communication Skills/Ability: Fair Financial Resources: Fair Insight/Judgement: Poor Intellectual Ability: Fair Physical Health: Poor Social Skills: Fair Stability in Family: Good Stability in School/Work: Poor Verbal Skills: Fair Discharge Criteria Discharge Criteria: No need for close observ., Adequate arrangements @DC, Improved behavior, Improved mood/thought Preliminary Discharge Plan Preliminary DC Plan: Current Living Arrange. Special Precautions Fall Risk: Moderate Initial D/C Plan Pt to return to [facility] once stable Identified Discharge Needs: Psychiatric services Currently Utilized Resources Currently Utilized Resources/P: Primary Care physician Identified Problems/Hx/Goals Objectives/Short-Term Goals Short Term Goals: Dec. Aggression, Dec. Hallucination/Delus, Dec. Outbursts, Improved Social Skills, Promote Coping Skill Short Term Goals in Patient's: NA Interventions/Frequency Staff Interventions/Frequency&: Psychiatrist to assess pt at least 3x per week for medication mgmt. Social Work to assess pt at least 2x per week to identify barriers to care and discharge planning. Nursing to assess medication effects, behavior management and completion of 15 minute checks daily. Encourage participation in group activities (if applicable) or 1:1 engagement based off Activity Dept goals. 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 Education: Pt graduated High School (12th grade) and attended college in [place]. Pt has a Bachelors and Masters in Business Administration. Community Follow-up Primary Care Physician Treatment Plan Explained Patient/Franchise Consultant had this treatment plan explained to him/her as indicated by the signature below and has been given the opportunity to ask questions and make suggestions: Date: Patient/Franchise Consultant Signature: Status Update Update Pt is sleeping on average 7 hours per night and eating roughly 75% of meals. Pt is more medication compliant and cooperative with staff direction. Pt has less yelling during ADL care and tends to be more withdrawn to her room. It is unsure sometimes if pt is getting herself back to bed or if the WATER PURIFICATION CHEMIST's are helping her. Pt does sometimes yell for help or yells hello while in her room; however, sometimes does not need anything; but wants to talk to someone versus sitting in her room alone. SW will be working with the family and placement on getting pt returned to [facility] on Friday. JEANNIE ROMERO Nov 06, 2020 15:41
[2020-11-06 16:00] VITALS: BP 124/76
--- NOTE | 2020-11-06 18:20 | NUR ---
NSG NOTE; SHIFT SUMMARY sarbjit has spent the day withdrawn in her room. she will talk to staff but not to other patients. she wanted to be in bed most of the day was gotten up and taken to the dining room for all meals. she has been med compliant.
[2020-11-06] MEDS: MELATONIN 3 MG TABLET PO SCH (20:07)
[2020-11-06] MEDS: ATORVASTATIN CALCIUM 20 MG TABLET PO SCH (20:07)
--- NOTE | 2020-11-06 21:57 | PDOC ---
Exam Note: Edgar Note: Please also refer to the separate dictated note~for this date of service dictated separately.~Patient seen individually. Discussed the patient with Nursing staff reviewed the chart.~Reviewed interim history and current functioning. Reviewed vital signs,~Labs/ Radiology~and current medications noted below. Continue current treatment with the changes noted in the dictated addendum note Assessment: Vital Signs/I&O: Vital Signs Date Time Temp Pulse Resp B/P (MAP) Pulse Ox O2 Delivery O2 Flow Rate FiO2 11/06/20 16:00 97.6 74 18 124/76 (92) 96 11/05/20 06:05 Room Air I & O 11/05/20 11/05/20 11/06/20 15:00 23:00 07:00 Intake Total 720 ml 360 ml Balance 720 ml 360 ml Labs: Laboratory Tests Test 11/06/20 07:27 11/06/20 11:39 11/06/20 16:44 11/06/20 19:18 Glucose (Fingerstick) 172 mg/dL (70-99) H 103 mg/dL (70-99) H 79 mg/dL (70-99) 148 mg/dL (70-99) H Current Medications: Meds: Laboratory Tests Test 11/06/20 07:27 11/06/20 11:39 11/06/20 16:44 11/06/20 19:18 Glucose (Fingerstick) 172 mg/dL 103 mg/dL 79 mg/dL 148 mg/dL Current Medications Medications (Trade) Dose Ordered Sig/Alexx Route PRN Reason Start Time Stop Time Status Last Admin Dose Admin Acetaminophen (Tylenol) 650 mg PRN Q6HRS PRN PO MILD PAIN / TEMP > 100.3'F 10/14/20 20:15 Apixaban (Eliquis) 5 mg BID PO 10/14/20 21:00 11/06/20 20:07 Aspirin (Aspirin Enteric Coated) 81 mg DAILY PO 10/15/20 09:00 11/06/20 08:13 Aspirin (Aspirin Enteric Coated) 81 mg DAILY PO 10/15/20 09:00 UNV Divalproex Sodium (Depakote Sprinkles) 500 mg 0900,1300,1700 PO 10/15/20 09:00 10/22/20 17:40 DC 10/22/20 13:11 Divalproex Sodium (Depakote Sprinkles) 750 mg HS PO 10/14/20 21:00 10/29/20 18:37 DC 10/28/20 20:58 Furosemide (Lasix) 20 mg DAILY PO 10/15/20 09:00 11/06/20 08:12 Gabapentin (Neurontin) 100 mg BID PO 10/14/20 21:00 10/30/20 16:03 DC 10/30/20 08:37 Acetaminophen/ Hydrocodone Bitart (Lortab 5/325) 1 tab PRN Q4HRS PRN PO MODERATE PAIN, SEVERE PAIN 10/14/20 20:15 10/24/20 17:49 Hydroxyzine HCl (Atarax) 25 mg PRN TID PRN PO ITCHING 10/14/20 21:00 11/05/20 18:19 Insulin Human Lispro (HumaLOG) 1 units TIDWMEALS SQ 10/15/20 08:00 Cancel Linagliptin (Tradjenta) 5 mg DAILY PO 10/15/20 09:00 11/06/20 08:14 Al Hydroxide/Mg Hydroxide (Mylanta Plus Xs) 15 ml PRN BFRMEALHC PRN PO DYSPEPSIA 10/14/20 20:15 Melatonin (Melatonin) 3 mg HS PO 10/14/20 21:00 11/06/20 20:07 Metformin HCl (Glucophage) 750 mg BIDWMEALS PO 10/15/20 08:00 11/06/20 17:12 Metoprolol Succinate (Toprol Xl) 50 mg DAILY PO 10/15/20 09:00 11/06/20 08:13 Nystatin (Nystop) 15 rocio BID TP 10/14/20 21:00 10/24/20 19:29 DC 10/24/20 09:30 Risperidone (RisperDAL) 0.5 mg BID PO 10/14/20 21:00 10/30/20 16:03 DC 10/30/20 08:35 Sertraline HCl (Zoloft) 50 mg DAILY PO 10/15/20 09:00 11/06/20 08:13 Atorvastatin Calcium (Lipitor) 40 mg QHS PO 10/14/20 21:00 11/06/20 20:07 Cyanocobalamin (Vitamin B-12) 500 mcg DAILY PO 10/15/20 09:00 11/06/20 08:13 Insulin Glargine (Lantus Syringe) 35 unit DAILY SQ 10/15/20 09:00 10/21/20 16:52 DC 10/21/20 10:03 Lactobacillus Rhamnosus (Culturelle) 1 cap DAILY PO 10/15/20 09:00 11/06/20 08:13 Magnesium Hydroxide (Milk Of Magnesia) 2,400 mg PRN DAILY PRN PO CONSTIPATION 10/14/20 21:00 10/25/20 20:04 Multi-Ingredient Ointment (Analgesic [place]) 1 rocio PRN Q6HRS PRN TP MUSCLE PAIN 10/14/20 21:00 Multivitamins/ Calcium (Thera-M Plus) 1 tab DAILY PO 10/15/20 09:00 11/06/20 08:13 Pantoprazole Sodium (Protonix) 40 mg BIDWMEALS PO 10/15/20 08:00 11/06/20 17:11 Potassium Chloride (Klor-Con) 10 meq DAILYWBKFT PO 10/15/20 08:00 11/06/20 08:14 Vitamin D (Vitamin D3) 500 unit DAILY PO 10/15/20 09:00 11/06/20 08:14 Acetaminophen (Tylenol) 650 mg PRN Q6HRS PRN PO MILD PAIN / TEMP > 100.3'F 10/14/20 23:15 10/14/20 23:34 DC Multi-Ingredient Ointment (Analgesic [place]) 1 roico PRN QID PRN TP MUSCLE PAIN 10/14/20 23:15 10/16/20 08:37 DC Al Hydroxide/Mg Hydroxide (Mylanta Plus Xs) 15 ml PRN AFTMEALHC PRN PO DYSPEPSIA 10/14/20 23:15 10/14/20 23:39 DC Magnesium Hydroxide (Milk Of Magnesia) 2,400 mg PRN QHS PRN PO CONSTIPATION 10/14/20 23:15 10/14/20 23:39 DC Insulin Human Lispro (HumaLOG) 0-5 UNITS TIDWMEALS SQ 10/15/20 12:00 11/06/20 08:20 Ertapenem 1 gm/ Sodium Chloride 50 ml @ 100 mls/hr DAILY IV 10/20/20 09:00 10/28/20 22:00 DC 10/28/20 09:40 Insulin Glargine (Lantus Syringe) 20 unit DAILY SQ 10/21/20 17:00 11/06/20 10:00 Divalproex Sodium (Depakote Sprinkles) 500 mg 0900,1400 PO 10/23/20 09:00 10/29/20 18:37 DC 10/29/20 13:48 Nystatin (Nystop) 1 rocio BID TP 10/24/20 21:00 11/06/20 20:08 Divalproex Sodium (Depakote Sprinkles) 500 mg 0900,1400 PO 10/30/20 09:00 10/30/20 16:03 DC 10/30/20 12:45 Divalproex Sodium (Depakote Sprinkles) 750 mg HS PO 10/29/20 21:00 10/30/20 16:03 DC 10/29/20 20:27 Valproic Acid (Depakene) 750 mg QHS PO 10/30/20 21:00 10/31/20 15:02 DC 10/30/20 19:47 Valproic Acid (Depakene) 500 mg 0900,1400 PO 10/31/20 09:00 10/31/20 15:02 DC 10/31/20 13:36 Gabapentin (Neurontin Oral Soln) 100 mg BID PO 10/30/20 21:00 10/31/20 15:02 DC 10/31/20 08:26 Risperidone (RisperDAL) 0.5 mg BID PO 10/30/20 21:00 10/31/20 15:02 DC 10/31/20 08:29 Divalproex Sodium (Depakote Sprinkles) 750 mg HS PO 10/31/20 21:00 11/06/20 20:08 Divalproex Sodium (Depakote Sprinkles) 500 mg 0900,1400 PO 11/01/20 09:00 11/06/20 14:49 Risperidone (RisperDAL) 0.5 mg BID PO 10/31/20 21:00 11/06/20 20:07 Gabapentin (Neurontin) 100 mg BID PO 10/31/20 21:00 11/06/20 20:12 Vitamin A/Vitamin D (Vitamin A & D Ointment) 1 rocio BID76 TP 11/02/20 11:30 11/06/20 17:12 I have reviewed the current psychotropics carefully including drug interactions. Risk benefit ratio favors no change other than as noted in my dictated progress note. Diagnosis: Problems: (1) Schizoaffective disorder, bipolar type (2) Impulse control disorder, unspecified (3) Anxiety disorder, unspecified (4) Bipolar disorder, curr episode mixed, severe, with psychotic features CHAVO WANG MD Nov 06, 2020 21:57
--- NOTE | 2020-11-06 22:50 | NUR ---
Pt sitting calmly in her wheelchair this evening. Pt yelling out "hello" intermittently. Compliant with crushed medications. Yelling out and resistive with ADLs.
[2020-11-07 06:11] VITALS: BP 129/73
[2020-11-07] MEDS: VITS A & D/LANOLIN TOPICAL OINTMENT 42GM TUBE. TP SCH ×2 (07:00→17:00)
--- NOTE | 2020-11-07 07:10 | NUR ---
Wound Care Wound Type/Assessment: Patient seen for follow up per wound care. See wound assessment. 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 Wound cleansed, assessed, measured, and redressed at this time. Wound appears to be better. Treatment Recommendations/Plan: Recommendations to continue with the A&D ointment to be applied BID PRN and with every brief change. Patient to be turned every 2 hours as well. A&D ointment applied at this time. Patient should only be in the wheelchair for meals. Education provided: Patient educated on turning and PU treatment and management, but will need reinforcement due to mental status. Offloading surface/device: Patient to turn every 2 hours and for purple wedge to be used when turning. wheelchair cushion in her chair. Recommended Referrals/Tests: N/A Discharge Recommendations for dressings: Dressing change instructions left at nursing station and placed in chart. Wound care will follow up for reassessment. Notified TALIA Aragon about the POC.
[2020-11-07] MEDS: NYSTATIN TOPICAL POWDER 15GM BOTTLE. TP SCH ×2 (07:30→20:43)
[2020-11-07] MEDS: INSULIN LISPRO 300 UNITS/3 ML VIAL. SQ SCH ×3 (08:00→17:24)
--- NOTE | 2020-11-07 08:59 | PDOC ---
Exam Note: Edgar Note: This note is a late entry for 11/06/2020 covers elements not covered in my initial note. Subjective: The patient was reviewed in the morning of 11/06/2020 for a treatment team meeting with Sadaf Aguilar, Iraida Wills and Mari (social sciences lecturer), Cheri, activity therapy and Estephanie MELGAR, discussed and reviewed the chart. She slept 8-1/4 hours previous night. Appetite is 75%. Sleeping average 7 hours. She spends much time in her room, occasional yelling but much better. Review of Systems: Ambulation impaired in wheelchair. No CV, , pulmonary, eye, ENT system symptoms on review. Mental Status Exam: The patient is reasonably oriented to herself. I met with her in the hallway outside her room. She stated she was having increased anxiety and we discussed involving herself and various social activities in the dayroom rather than being by herself in her room which would increase anxiety. She was very appreciative of this. Speech is coherent. Abstraction is fair. Computation impaired. Language function intact. Attention span short. Mood and affect anxious, labile. Laboratory Data: Reviewed. Impression: Schizoaffective disorder bipolar type. Impulse control disorder unspecified. Anxiety disorder unspecified. Plan: Continue rest of the psychotropics unchanged. Assessment: Vital Signs/I&O: Vital Signs Date Time Temp Pulse Resp B/P (MAP) Pulse Ox O2 Delivery O2 Flow Rate FiO2 11/07/20 06:11 97.4 72 20 129/73 (91) 93 Room Air I & O 11/06/20 11/06/20 11/07/20 15:00 23:00 07:00 Intake Total 720 ml 480 ml Balance 720 ml 480 ml Labs: Laboratory Tests Test 11/06/20 11:39 11/06/20 16:44 11/06/20 19:18 11/07/20 07:39 Glucose (Fingerstick) 103 mg/dL (70-99) H 79 mg/dL (70-99) 148 mg/dL (70-99) H 118 mg/dL (70-99) H Current Medications: Meds: Laboratory Tests Test 11/06/20 11:39 11/06/20 16:44 11/06/20 19:18 11/07/20 07:39 Glucose (Fingerstick) 103 mg/dL 79 mg/dL 148 mg/dL 118 mg/dL Current Medications Medications (Trade) Dose Ordered Sig/Alexx Route PRN Reason Start Time Stop Time Status Last Admin Dose Admin Acetaminophen (Tylenol) 650 mg PRN Q6HRS PRN PO MILD PAIN / TEMP > 100.3'F 10/14/20 20:15 Apixaban (Eliquis) 5 mg BID PO 10/14/20 21:00 11/06/20 20:07 Aspirin (Aspirin Enteric Coated) 81 mg DAILY PO 10/15/20 09:00 11/06/20 08:13 Aspirin (Aspirin Enteric Coated) 81 mg DAILY PO 10/15/20 09:00 UNV Divalproex Sodium (Depakote Sprinkles) 500 mg 0900,1300,1700 PO 10/15/20 09:00 10/22/20 17:40 DC 10/22/20 13:11 Divalproex Sodium (Depakote Sprinkles) 750 mg HS PO 10/14/20 21:00 10/29/20 18:37 DC 10/28/20 20:58 Furosemide (Lasix) 20 mg DAILY PO 10/15/20 09:00 11/06/20 08:12 Gabapentin (Neurontin) 100 mg BID PO 10/14/20 21:00 10/30/20 16:03 DC 10/30/20 08:37 Acetaminophen/ Hydrocodone Bitart (Lortab 5/325) 1 tab PRN Q4HRS PRN PO MODERATE PAIN, SEVERE PAIN 10/14/20 20:15 10/24/20 17:49 Hydroxyzine HCl (Atarax) 25 mg PRN TID PRN PO ITCHING 10/14/20 21:00 11/05/20 18:19 Insulin Human Lispro (HumaLOG) 1 units TIDWMEALS SQ 10/15/20 08:00 Cancel Linagliptin (Tradjenta) 5 mg DAILY PO 10/15/20 09:00 11/06/20 08:14 Al Hydroxide/Mg Hydroxide (Mylanta Plus Xs) 15 ml PRN BFRMEALHC PRN PO DYSPEPSIA 10/14/20 20:15 Melatonin (Melatonin) 3 mg HS PO 10/14/20 21:00 11/06/20 20:07 Metformin HCl (Glucophage) 750 mg BIDWMEALS PO 10/15/20 08:00 11/06/20 17:12 Metoprolol Succinate (Toprol Xl) 50 mg DAILY PO 10/15/20 09:00 11/06/20 08:13 Nystatin (Nystop) 15 rocio BID TP 10/14/20 21:00 10/24/20 19:29 DC 10/24/20 09:30 Risperidone (RisperDAL) 0.5 mg BID PO 10/14/20 21:00 10/30/20 16:03 DC 10/30/20 08:35 Sertraline HCl (Zoloft) 50 mg DAILY PO 10/15/20 09:00 11/06/20 08:13 Atorvastatin Calcium (Lipitor) 40 mg QHS PO 10/14/20 21:00 11/06/20 20:07 Cyanocobalamin (Vitamin B-12) 500 mcg DAILY PO 10/15/20 09:00 11/06/20 08:13 Insulin Glargine (Lantus Syringe) 35 unit DAILY SQ 10/15/20 09:00 10/21/20 16:52 DC 10/21/20 10:03 Lactobacillus Rhamnosus (Culturelle) 1 cap DAILY PO 10/15/20 09:00 11/06/20 08:13 Magnesium Hydroxide (Milk Of Magnesia) 2,400 mg PRN DAILY PRN PO CONSTIPATION 10/14/20 21:00 10/25/20 20:04 Multi-Ingredient Ointment (Analgesic [place]) 1 rocio PRN Q6HRS PRN TP MUSCLE PAIN 10/14/20 21:00 Multivitamins/ Calcium (Thera-M Plus) 1 tab DAILY PO 10/15/20 09:00 11/06/20 08:13 Pantoprazole Sodium (Protonix) 40 mg BIDWMEALS PO 10/15/20 08:00 11/06/20 17:11 Potassium Chloride (Klor-Con) 10 meq DAILYWBKFT PO 10/15/20 08:00 11/06/20 08:14 Vitamin D (Vitamin D3) 500 unit DAILY PO 10/15/20 09:00 11/06/20 08:14 Acetaminophen (Tylenol) 650 mg PRN Q6HRS PRN PO MILD PAIN / TEMP > 100.3'F 10/14/20 23:15 10/14/20 23:34 DC Multi-Ingredient Ointment (Analgesic [place]) 1 rocio PRN QID PRN TP MUSCLE PAIN 10/14/20 23:15 10/16/20 08:37 DC Al Hydroxide/Mg Hydroxide (Mylanta Plus Xs) 15 ml PRN AFTMEALHC PRN PO DYSPEPSIA 10/14/20 23:15 10/14/20 23:39 DC Magnesium Hydroxide (Milk Of Magnesia) 2,400 mg PRN QHS PRN PO CONSTIPATION 10/14/20 23:15 10/14/20 23:39 DC Insulin Human Lispro (HumaLOG) 0-5 UNITS TIDWMEALS SQ 10/15/20 12:00 11/06/20 08:20 Ertapenem 1 gm/ Sodium Chloride 50 ml @ 100 mls/hr DAILY IV 10/20/20 09:00 10/28/20 22:00 DC 10/28/20 09:40 Insulin Glargine (Lantus Syringe) 20 unit DAILY SQ 10/21/20 17:00 11/06/20 10:00 Divalproex Sodium (Depakote Sprinkles) 500 mg 0900,1400 PO 10/23/20 09:00 10/29/20 18:37 DC 10/29/20 13:48 Nystatin (Nystop) 1 rocio BID TP 10/24/20 21:00 11/06/20 20:08 Divalproex Sodium (Depakote Sprinkles) 500 mg 0900,1400 PO 10/30/20 09:00 10/30/20 16:03 DC 10/30/20 12:45 Divalproex Sodium (Depakote Sprinkles) 750 mg HS PO 10/29/20 21:00 10/30/20 16:03 DC 10/29/20 20:27 Valproic Acid (Depakene) 750 mg QHS PO 10/30/20 21:00 10/31/20 15:02 DC 10/30/20 19:47 Valproic Acid (Depakene) 500 mg 0900,1400 PO 10/31/20 09:00 10/31/20 15:02 DC 10/31/20 13:36 Gabapentin (Neurontin Oral Soln) 100 mg BID PO 10/30/20 21:00 10/31/20 15:02 DC 10/31/20 08:26 Risperidone (RisperDAL) 0.5 mg BID PO 10/30/20 21:00 10/31/20 15:02 DC 10/31/20 08:29 Divalproex Sodium (Depakote Sprinkles) 750 mg HS PO 10/31/20 21:00 11/06/20 20:08 Divalproex Sodium (Depakote Sprinkles) 500 mg 0900,1400 PO 11/01/20 09:00 11/06/20 14:49 Risperidone (RisperDAL) 0.5 mg BID PO 10/31/20 21:00 11/06/20 20:07 Gabapentin (Neurontin) 100 mg BID PO 10/31/20 21:00 11/06/20 20:12 Vitamin A/Vitamin D (Vitamin A & D Ointment) 1 rocio BID76 TP 11/02/20 11:30 11/06/20 17:12 I have reviewed the current psychotropics carefully including drug interactions. Risk benefit ratio favors no change other than as noted in my dictated progress note. Diagnosis: Problems: (1) Schizoaffective disorder, bipolar type (2) Impulse control disorder, unspecified (3) Anxiety disorder, unspecified (4) Bipolar disorder, curr episode mixed, severe, with psychotic features CHAVO WANG MD Nov 07, 2020 08:59
[2020-11-07] MEDS: LINAGLIPTIN 5 MG TABLET PO SCH (09:17)
[2020-11-07] MEDS: FUROSEMIDE 20 MG TABLET PO SCH (09:17)
[2020-11-07] MEDS: ASPIRIN ENTERIC COATED 81 MG TABLET.DR. PO SCH (09:17)
[2020-11-07] MEDS: GABAPENTIN 100 MG CAPSULE. PO SCH ×2 (09:17→20:43)
[2020-11-07] MEDS: SERTRALINE 50 MG TABLET. PO SCH (09:17)
[2020-11-07] MEDS: APIXABAN 5 MG TABLET. PO SCH ×2 (09:18→20:42)
[2020-11-07] MEDS: DIVALPROEX 125 MG CAP.SPRINK PO SCH ×3 (09:18→20:42)
[2020-11-07] MEDS: MULTIVITAMIN with MINERAL TABLET. PO SCH (09:18)
[2020-11-07] MEDS: risperiDONE 0.25 MG TABLET. PO SCH ×2 (09:18→20:43)
[2020-11-07] MEDS: PANTOPRAZOLE 40 MG TABLET. PO SCH ×2 (09:18→17:23)
[2020-11-07] MEDS: METOPROLOL SUCC 24HR ER 50 MG TAB.ER.24H. PO SCH (09:18)
[2020-11-07] MEDS: CHOLECALCIFEROL (VITAMIN D3) 1,000 UNIT TABLET PO SCH (09:18)
[2020-11-07] MEDS: LACTOBACILLUS RHAMNOSUS GG 1 CAPSULE. PO SCH (09:19)
[2020-11-07] MEDS: metFORMIN 500 MG TABLET PO SCH ×2 (09:19→17:23)
[2020-11-07] MEDS: POTASSIUM CHLORIDE 10 MEQ TABLET.ER. PO SCH (09:19)
[2020-11-07] MEDS: CYANOCOBALAMIN (VITAMIN B-12) 250 MCG TABLET. PO SCH (09:20)
[2020-11-07] MEDS: INSULIN GLARGINE SYRINGE. SQ SCH (12:13)
[2020-11-07] MEDS: hydrOXYzine HCL 25 MG TABLET PO PRN (12:14)
--- NOTE | 2020-11-07 14:18 | NUR ---
KEITH attempted to contact Stefanie at [facility] to set up a time for pt discharge and left a message asking for a returned call.
--- NOTE | 2020-11-07 14:54 | NUR ---
KEITH returned call to Stefanie about transportation on pt. Stefanie reports that they have given pt bed to a lady needing respite. That lady is to leave on Friday and they will be able to accept pt back at that time. Stefanie confirmed that she received KEITH email re: discharge on Friday but got busy and forgot to call KEITH back to inform her that Friday would not work. KEITH received a leaf size picker time for Friday at 1400.
--- NOTE | 2020-11-07 14:59 | NUR ---
[facility] Social Work Discharge Planning Form Patient Name MICAELA LYNCH Admit Date: 13 Oct 2020 DISCHARGE PLAN Discharge Destination: Pt to return to [facility]. Care Assessment: N/A Level II Assessment: Completed; denied Level II status Transportation: Facility to set up transportation for pt to return to [facility] Special Instructions/Notes: Please fax discharge orders, discharge medication list and discharge summary to the fax number listed below. DISCHARGE TO FACILITY Facility: [facility] Address: [address] [place] [address] Contact Name: Stefanie Armstrong, Pre K Teacher: Contact Name: Trinidad Natarajan, Admissions: PCP: To see the facility physician
[2020-11-07 15:55] VITALS: BP 137/73
--- NOTE | 2020-11-07 18:28 | NUR ---
Patient has been disorganized, helpless, attention seeking, compliant with medications, and mildly confused throughout this shift. Patient repeatedly calls out 'Help' or 'Hello' while in bed, then states she does not need anything. Patient was verbally abusive when staff changed her brief, calling the aides 'fucking bitches', telling them to leave her alone, and was noncooperative with getting her brief changed. When told that she would be getting a roommate, patient stated she could not have a roommate because they would have 'nothing in common.' Will continue to monitor and report to oncoming shift.
[2020-11-07] MEDS: ATORVASTATIN CALCIUM 20 MG TABLET PO SCH (20:42)
[2020-11-07] MEDS: MELATONIN 3 MG TABLET PO SCH (20:43)
--- NOTE | 2020-11-07 22:14 | PDOC ---
Exam Note: Edgar Note: Please also refer to the separate dictated note~for this date of service dictated separately.~Patient seen individually. Discussed the patient with Nursing staff reviewed the chart.~Reviewed interim history and current functioning. Reviewed vital signs,~Labs/ Radiology~and current medications noted below. Continue current treatment with the changes noted in the dictated addendum note Assessment: Vital Signs/I&O: Vital Signs Date Time Temp Pulse Resp B/P (MAP) Pulse Ox O2 Delivery O2 Flow Rate FiO2 11/07/20 15:55 97.2 84 18 137/73 (94) 96 11/07/20 06:11 Room Air I & O 11/06/20 11/06/20 11/07/20 15:00 23:00 07:00 Intake Total 720 ml 480 ml Balance 720 ml 480 ml Labs: Laboratory Tests Test 11/07/20 07:39 11/07/20 11:06 11/07/20 16:25 11/07/20 19:25 Glucose (Fingerstick) 118 mg/dL (70-99) H 172 mg/dL (70-99) H 158 mg/dL (70-99) H 188 mg/dL (70-99) H Current Medications: Meds: Laboratory Tests Test 11/07/20 07:39 11/07/20 11:06 11/07/20 16:25 11/07/20 19:25 Glucose (Fingerstick) 118 mg/dL 172 mg/dL 158 mg/dL 188 mg/dL Current Medications Medications (Trade) Dose Ordered Sig/Alexx Route PRN Reason Start Time Stop Time Status Last Admin Dose Admin Acetaminophen (Tylenol) 650 mg PRN Q6HRS PRN PO MILD PAIN / TEMP > 100.3'F 10/14/20 20:15 Apixaban (Eliquis) 5 mg BID PO 10/14/20 21:00 11/07/20 20:42 Aspirin (Aspirin Enteric Coated) 81 mg DAILY PO 10/15/20 09:00 11/07/20 09:17 Aspirin (Aspirin Enteric Coated) 81 mg DAILY PO 10/15/20 09:00 UNV Divalproex Sodium (Depakote Sprinkles) 500 mg 0900,1300,1700 PO 10/15/20 09:00 10/22/20 17:40 DC 10/22/20 13:11 Divalproex Sodium (Depakote Sprinkles) 750 mg HS PO 10/14/20 21:00 10/29/20 18:37 DC 10/28/20 20:58 Furosemide (Lasix) 20 mg DAILY PO 10/15/20 09:00 11/07/20 09:17 Gabapentin (Neurontin) 100 mg BID PO 10/14/20 21:00 10/30/20 16:03 DC 10/30/20 08:37 Acetaminophen/ Hydrocodone Bitart (Lortab 5/325) 1 tab PRN Q4HRS PRN PO MODERATE PAIN, SEVERE PAIN 10/14/20 20:15 10/24/20 17:49 Hydroxyzine HCl (Atarax) 25 mg PRN TID PRN PO ITCHING 10/14/20 21:00 11/07/20 12:14 Insulin Human Lispro (HumaLOG) 1 units TIDWMEALS SQ 10/15/20 08:00 Cancel Linagliptin (Tradjenta) 5 mg DAILY PO 10/15/20 09:00 11/07/20 09:17 Al Hydroxide/Mg Hydroxide (Mylanta Plus Xs) 15 ml PRN BFRMEALHC PRN PO DYSPEPSIA 10/14/20 20:15 Melatonin (Melatonin) 3 mg HS PO 10/14/20 21:00 11/07/20 20:43 Metformin HCl (Glucophage) 750 mg BIDWMEALS PO 10/15/20 08:00 11/07/20 17:23 Metoprolol Succinate (Toprol Xl) 50 mg DAILY PO 10/15/20 09:00 11/07/20 09:18 Nystatin (Nystop) 15 rocio BID TP 10/14/20 21:00 10/24/20 19:29 DC 10/24/20 09:30 Risperidone (RisperDAL) 0.5 mg BID PO 10/14/20 21:00 10/30/20 16:03 DC 10/30/20 08:35 Sertraline HCl (Zoloft) 50 mg DAILY PO 10/15/20 09:00 11/07/20 09:17 Atorvastatin Calcium (Lipitor) 40 mg QHS PO 10/14/20 21:00 11/07/20 20:42 Cyanocobalamin (Vitamin B-12) 500 mcg DAILY PO 10/15/20 09:00 11/07/20 09:20 Insulin Glargine (Lantus Syringe) 35 unit DAILY SQ 10/15/20 09:00 10/21/20 16:52 DC 10/21/20 10:03 Lactobacillus Rhamnosus (Culturelle) 1 cap DAILY PO 10/15/20 09:00 11/07/20 09:19 Magnesium Hydroxide (Milk Of Magnesia) 2,400 mg PRN DAILY PRN PO CONSTIPATION 10/14/20 21:00 10/25/20 20:04 Multi-Ingredient Ointment (Analgesic [place]) 1 rocio PRN Q6HRS PRN TP MUSCLE PAIN 10/14/20 21:00 Multivitamins/ Calcium (Thera-M Plus) 1 tab DAILY PO 10/15/20 09:00 11/07/20 09:18 Pantoprazole Sodium (Protonix) 40 mg BIDWMEALS PO 10/15/20 08:00 11/07/20 17:23 Potassium Chloride (Klor-Con) 10 meq DAILYWBKFT PO 10/15/20 08:00 11/07/20 09:19 Vitamin D (Vitamin D3) 500 unit DAILY PO 10/15/20 09:00 11/07/20 09:18 Acetaminophen (Tylenol) 650 mg PRN Q6HRS PRN PO MILD PAIN / TEMP > 100.3'F 10/14/20 23:15 10/14/20 23:34 DC Multi-Ingredient Ointment (Analgesic [place]) 1 rocio PRN QID PRN TP MUSCLE PAIN 10/14/20 23:15 10/16/20 08:37 DC Al Hydroxide/Mg Hydroxide (Mylanta Plus Xs) 15 ml PRN AFTMEALHC PRN PO DYSPEPSIA 10/14/20 23:15 10/14/20 23:39 DC Magnesium Hydroxide (Milk Of Magnesia) 2,400 mg PRN QHS PRN PO CONSTIPATION 10/14/20 23:15 10/14/20 23:39 DC Insulin Human Lispro (HumaLOG) 0-5 UNITS TIDWMEALS SQ 10/15/20 12:00 11/07/20 17:24 Ertapenem 1 gm/ Sodium Chloride 50 ml @ 100 mls/hr DAILY IV 10/20/20 09:00 10/28/20 22:00 DC 10/28/20 09:40 Insulin Glargine (Lantus Syringe) 20 unit DAILY SQ 10/21/20 17:00 11/07/20 12:13 Divalproex Sodium (Depakote Sprinkles) 500 mg 0900,1400 PO 10/23/20 09:00 10/29/20 18:37 DC 10/29/20 13:48 Nystatin (Nystop) 1 rocio BID TP 10/24/20 21:00 11/07/20 20:43 Divalproex Sodium (Depakote Sprinkles) 500 mg 0900,1400 PO 10/30/20 09:00 10/30/20 16:03 DC 10/30/20 12:45 Divalproex Sodium (Depakote Sprinkles) 750 mg HS PO 10/29/20 21:00 10/30/20 16:03 DC 10/29/20 20:27 Valproic Acid (Depakene) 750 mg QHS PO 10/30/20 21:00 10/31/20 15:02 DC 10/30/20 19:47 Valproic Acid (Depakene) 500 mg 0900,1400 PO 10/31/20 09:00 10/31/20 15:02 DC 10/31/20 13:36 Gabapentin (Neurontin Oral Soln) 100 mg BID PO 10/30/20 21:00 10/31/20 15:02 DC 10/31/20 08:26 Risperidone (RisperDAL) 0.5 mg BID PO 10/30/20 21:00 10/31/20 15:02 DC 10/31/20 08:29 Divalproex Sodium (Depakote Sprinkles) 750 mg HS PO 10/31/20 21:00 11/07/20 20:42 Divalproex Sodium (Depakote Sprinkles) 500 mg 0900,1400 PO 11/01/20 09:00 11/07/20 14:35 Risperidone (RisperDAL) 0.5 mg BID PO 10/31/20 21:00 11/07/20 20:43 Gabapentin (Neurontin) 100 mg BID PO 10/31/20 21:00 11/07/20 20:43 Vitamin A/Vitamin D (Vitamin A & D Ointment) 1 rocio BID76 TP 11/02/20 11:30 11/07/20 17:00 I have reviewed the current psychotropics carefully including drug interactions. Risk benefit ratio favors no change other than as noted in my dictated progress note. Diagnosis: Problems: (1) Schizoaffective disorder, bipolar type (2) Impulse control disorder, unspecified (3) Anxiety disorder, unspecified (4) Bipolar disorder, curr episode mixed, severe, with psychotic features CHAVO WANG MD Nov 07, 2020 22:14
--- NOTE | 2020-11-07 23:46 | NUR ---
Nursing Note PT is pleasant and cooperative takes po meds whole, denies complaints. Compliments me on my hair, and clothing, states our hair is close to the same color. Has been in bed a lot today, but pt states shes comfortable.
[2020-11-08 06:31] VITALS: BP 129/73
--- NOTE | 2020-11-08 06:37 | PDOC ---
Exam Note: Edgar Note: This note is a late entry for 11/07/2020 covers elements not covered in my initial note. Subjective: The patient was seen individually in the evening of 11/07/2020 with Mahesh MELGAR, discussed and reviewed the chart. She slept 8 hours previous night. The patient has been calling out at times but less than before, verbally aggressive at times of her brief being changed by nursing staff. I addressed this with her. Review of Systems: Ambulation impaired in wheelchair. No CV, , pulmonary, eye, ENT system symptoms on review. Mental Status Exam: The patient is reasonably oriented to herself. Speech is coherent. Abstraction is fair. Computation impaired. Language function intact. Attention span short. Mood and affect anxious, labile. Laboratory Data: Reviewed. Impression: Schizoaffective disorder bipolar type. Impulse control disorder unspecified. Anxiety disorder unspecified. Plan: Continue rest of the psychotropics unchanged. Assessment: Vital Signs/I&O: Vital Signs Date Time Temp Pulse Resp B/P (MAP) Pulse Ox O2 Delivery O2 Flow Rate FiO2 11/08/20 06:31 97.9 61 18 129/73 (91) 95 11/07/20 06:11 Room Air I & O 11/07/20 11/07/20 11/08/20 15:00 23:00 07:00 Intake Total 960 ml 480 ml Balance 960 ml 480 ml Labs: Laboratory Tests Test 11/07/20 07:39 11/07/20 11:06 11/07/20 16:25 11/07/20 19:25 Glucose (Fingerstick) 118 mg/dL (70-99) H 172 mg/dL (70-99) H 158 mg/dL (70-99) H 188 mg/dL (70-99) H Current Medications: Meds: Laboratory Tests Test 11/07/20 07:39 11/07/20 11:06 11/07/20 16:25 11/07/20 19:25 Glucose (Fingerstick) 118 mg/dL 172 mg/dL 158 mg/dL 188 mg/dL Current Medications Medications (Trade) Dose Ordered Sig/Alexx Route PRN Reason Start Time Stop Time Status Last Admin Dose Admin Acetaminophen (Tylenol) 650 mg PRN Q6HRS PRN PO MILD PAIN / TEMP > 100.3'F 10/14/20 20:15 Apixaban (Eliquis) 5 mg BID PO 10/14/20 21:00 11/07/20 20:42 Aspirin (Aspirin Enteric Coated) 81 mg DAILY PO 10/15/20 09:00 11/07/20 09:17 Aspirin (Aspirin Enteric Coated) 81 mg DAILY PO 10/15/20 09:00 UNV Divalproex Sodium (Depakote Sprinkles) 500 mg 0900,1300,1700 PO 10/15/20 09:00 10/22/20 17:40 DC 10/22/20 13:11 Divalproex Sodium (Depakote Sprinkles) 750 mg HS PO 10/14/20 21:00 10/29/20 18:37 DC 10/28/20 20:58 Furosemide (Lasix) 20 mg DAILY PO 10/15/20 09:00 11/07/20 09:17 Gabapentin (Neurontin) 100 mg BID PO 10/14/20 21:00 10/30/20 16:03 DC 10/30/20 08:37 Acetaminophen/ Hydrocodone Bitart (Lortab 5/325) 1 tab PRN Q4HRS PRN PO MODERATE PAIN, SEVERE PAIN 10/14/20 20:15 10/24/20 17:49 Hydroxyzine HCl (Atarax) 25 mg PRN TID PRN PO ITCHING 10/14/20 21:00 11/07/20 12:14 Insulin Human Lispro (HumaLOG) 1 units TIDWMEALS SQ 10/15/20 08:00 Cancel Linagliptin (Tradjenta) 5 mg DAILY PO 10/15/20 09:00 11/07/20 09:17 Al Hydroxide/Mg Hydroxide (Mylanta Plus Xs) 15 ml PRN BFRMEALHC PRN PO DYSPEPSIA 10/14/20 20:15 Melatonin (Melatonin) 3 mg HS PO 10/14/20 21:00 11/07/20 20:43 Metformin HCl (Glucophage) 750 mg BIDWMEALS PO 10/15/20 08:00 11/07/20 17:23 Metoprolol Succinate (Toprol Xl) 50 mg DAILY PO 10/15/20 09:00 11/07/20 09:18 Nystatin (Nystop) 15 rocio BID TP 10/14/20 21:00 10/24/20 19:29 DC 10/24/20 09:30 Risperidone (RisperDAL) 0.5 mg BID PO 10/14/20 21:00 10/30/20 16:03 DC 10/30/20 08:35 Sertraline HCl (Zoloft) 50 mg DAILY PO 10/15/20 09:00 11/07/20 09:17 Atorvastatin Calcium (Lipitor) 40 mg QHS PO 10/14/20 21:00 11/07/20 20:42 Cyanocobalamin (Vitamin B-12) 500 mcg DAILY PO 10/15/20 09:00 11/07/20 09:20 Insulin Glargine (Lantus Syringe) 35 unit DAILY SQ 10/15/20 09:00 10/21/20 16:52 DC 10/21/20 10:03 Lactobacillus Rhamnosus (Culturelle) 1 cap DAILY PO 10/15/20 09:00 11/07/20 09:19 Magnesium Hydroxide (Milk Of Magnesia) 2,400 mg PRN DAILY PRN PO CONSTIPATION 10/14/20 21:00 10/25/20 20:04 Multi-Ingredient Ointment (Analgesic [place]) 1 rocio PRN Q6HRS PRN TP MUSCLE PAIN 10/14/20 21:00 Multivitamins/ Calcium (Thera-M Plus) 1 tab DAILY PO 10/15/20 09:00 11/07/20 09:18 Pantoprazole Sodium (Protonix) 40 mg BIDWMEALS PO 10/15/20 08:00 11/07/20 17:23 Potassium Chloride (Klor-Con) 10 meq DAILYWBKFT PO 10/15/20 08:00 11/07/20 09:19 Vitamin D (Vitamin D3) 500 unit DAILY PO 10/15/20 09:00 11/07/20 09:18 Acetaminophen (Tylenol) 650 mg PRN Q6HRS PRN PO MILD PAIN / TEMP > 100.3'F 10/14/20 23:15 10/14/20 23:34 DC Multi-Ingredient Ointment (Analgesic [place]) 1 rocio PRN QID PRN TP MUSCLE PAIN 10/14/20 23:15 10/16/20 08:37 DC Al Hydroxide/Mg Hydroxide (Mylanta Plus Xs) 15 ml PRN AFTMEALHC PRN PO DYSPEPSIA 10/14/20 23:15 10/14/20 23:39 DC Magnesium Hydroxide (Milk Of Magnesia) 2,400 mg PRN QHS PRN PO CONSTIPATION 10/14/20 23:15 10/14/20 23:39 DC Insulin Human Lispro (HumaLOG) 0-5 UNITS TIDWMEALS SQ 10/15/20 12:00 11/07/20 17:24 Ertapenem 1 gm/ Sodium Chloride 50 ml @ 100 mls/hr DAILY IV 10/20/20 09:00 10/28/20 22:00 DC 10/28/20 09:40 Insulin Glargine (Lantus Syringe) 20 unit DAILY SQ 10/21/20 17:00 11/07/20 12:13 Divalproex Sodium (Depakote Sprinkles) 500 mg 0900,1400 PO 10/23/20 09:00 10/29/20 18:37 DC 10/29/20 13:48 Nystatin (Nystop) 1 rocio BID TP 10/24/20 21:00 11/07/20 20:43 Divalproex Sodium (Depakote Sprinkles) 500 mg 0900,1400 PO 10/30/20 09:00 10/30/20 16:03 DC 10/30/20 12:45 Divalproex Sodium (Depakote Sprinkles) 750 mg HS PO 10/29/20 21:00 10/30/20 16:03 DC 10/29/20 20:27 Valproic Acid (Depakene) 750 mg QHS PO 10/30/20 21:00 10/31/20 15:02 DC 10/30/20 19:47 Valproic Acid (Depakene) 500 mg 0900,1400 PO 10/31/20 09:00 10/31/20 15:02 DC 10/31/20 13:36 Gabapentin (Neurontin Oral Soln) 100 mg BID PO 10/30/20 21:00 10/31/20 15:02 DC 10/31/20 08:26 Risperidone (RisperDAL) 0.5 mg BID PO 10/30/20 21:00 10/31/20 15:02 DC 10/31/20 08:29 Divalproex Sodium (Depakote Sprinkles) 750 mg HS PO 10/31/20 21:00 11/07/20 20:42 Divalproex Sodium (Depakote Sprinkles) 500 mg 0900,1400 PO 11/01/20 09:00 11/07/20 14:35 Risperidone (RisperDAL) 0.5 mg BID PO 10/31/20 21:00 11/07/20 20:43 Gabapentin (Neurontin) 100 mg BID PO 10/31/20 21:00 11/07/20 20:43 Vitamin A/Vitamin D (Vitamin A & D Ointment) 1 rocio BID76 TP 11/02/20 11:30 11/07/20 17:00 I have reviewed the current psychotropics carefully including drug interactions. Risk benefit ratio favors no change other than as noted in my dictated progress note. Diagnosis: Problems: (1) Schizoaffective disorder, bipolar type (2) Impulse control disorder, unspecified (3) Anxiety disorder, unspecified (4) Bipolar disorder, curr episode mixed, severe, with psychotic features CHAVO WANG MD Nov 08, 2020 06:37
[2020-11-08] MEDS: VITS A & D/LANOLIN TOPICAL OINTMENT 42GM TUBE. TP SCH ×2 (07:00→17:40)
[2020-11-08] MEDS: INSULIN LISPRO 300 UNITS/3 ML VIAL. SQ SCH ×3 (08:00→17:00)
[2020-11-08] MEDS: NYSTATIN TOPICAL POWDER 15GM BOTTLE. TP SCH ×2 (08:58→20:18)
[2020-11-08] MEDS: PANTOPRAZOLE 40 MG TABLET. PO SCH ×2 (08:59→17:19)
[2020-11-08] MEDS: APIXABAN 5 MG TABLET. PO SCH ×2 (08:59→20:18)
[2020-11-08] MEDS: POTASSIUM CHLORIDE 10 MEQ TABLET.ER. PO SCH (08:59)
[2020-11-08] MEDS: SERTRALINE 50 MG TABLET. PO SCH (08:59)
[2020-11-08] MEDS: metFORMIN 500 MG TABLET PO SCH ×2 (09:00→17:20)
[2020-11-08] MEDS: LINAGLIPTIN 5 MG TABLET PO SCH (09:00)
[2020-11-08] MEDS: LACTOBACILLUS RHAMNOSUS GG 1 CAPSULE. PO SCH (09:00)
[2020-11-08] MEDS: DIVALPROEX 125 MG CAP.SPRINK PO SCH ×3 (09:00→20:18)
[2020-11-08] MEDS: risperiDONE 0.25 MG TABLET. PO SCH ×2 (09:01→20:18)
[2020-11-08] MEDS: CHOLECALCIFEROL (VITAMIN D3) 1,000 UNIT TABLET PO SCH (09:01)
[2020-11-08] MEDS: GABAPENTIN 100 MG CAPSULE. PO SCH ×2 (09:01→20:18)
[2020-11-08] MEDS: MULTIVITAMIN with MINERAL TABLET. PO SCH (09:01)
[2020-11-08] MEDS: ASPIRIN ENTERIC COATED 81 MG TABLET.DR. PO SCH (09:01)
[2020-11-08] MEDS: CYANOCOBALAMIN (VITAMIN B-12) 250 MCG TABLET. PO SCH (09:01)
[2020-11-08] MEDS: FUROSEMIDE 20 MG TABLET PO SCH (09:02)
[2020-11-08] MEDS: METOPROLOL SUCC 24HR ER 50 MG TAB.ER.24H. PO SCH (09:02)
[2020-11-08] MEDS: INSULIN GLARGINE SYRINGE. SQ SCH (09:11)
[2020-11-08] MEDS: hydrOXYzine HCL 25 MG TABLET PO PRN (13:17)
[2020-11-08 15:50] VITALS: BP 121/70
--- NOTE | 2020-11-08 17:40 | NUR ---
Patient has been disorganized, helpless, attention seeking, compliant with medications, and mildly confused throughout this shift. Patient repeatedly calls out 'Help' or 'Hello' while in bed, then states she does not need anything or asks for something minor such as moving her blanket. She remained in bed for most of the shift with q2h turns related to the wound on her buttocks. Patient had two loose stools, will report to MD during rounds. Will continue to monitor and report to oncoming shift.
[2020-11-08] MEDS: ATORVASTATIN CALCIUM 20 MG TABLET PO SCH (20:18)
[2020-11-08] MEDS: MELATONIN 3 MG TABLET PO SCH (20:18)
--- NOTE | 2020-11-08 22:00 | PDOC ---
Exam Note: Edgar Note: Please also refer to the separate dictated note~for this date of service dictated separately.~Patient seen individually. Discussed the patient with Nursing staff reviewed the chart.~Reviewed interim history and current functioning. Reviewed vital signs,~Labs/ Radiology~and current medications noted below. Continue current treatment with the changes noted in the dictated addendum note Assessment: Vital Signs/I&O: Vital Signs Date Time Temp Pulse Resp B/P (MAP) Pulse Ox O2 Delivery O2 Flow Rate FiO2 11/08/20 15:50 97.2 71 16 121/70 (87) 99 11/07/20 06:11 Room Air I & O 11/07/20 11/07/20 11/08/20 15:00 23:00 07:00 Intake Total 960 ml 480 ml Balance 960 ml 480 ml Labs: Laboratory Tests Test 11/08/20 07:50 11/08/20 11:35 11/08/20 16:19 11/08/20 19:16 Glucose (Fingerstick) 94 mg/dL (70-99) 132 mg/dL (70-99) H 117 mg/dL (70-99) H 233 mg/dL (70-99) H Current Medications: Meds: Laboratory Tests Test 11/08/20 07:50 11/08/20 11:35 11/08/20 16:19 11/08/20 19:16 Glucose (Fingerstick) 94 mg/dL 132 mg/dL 117 mg/dL 233 mg/dL Current Medications Medications (Trade) Dose Ordered Sig/Alexx Route PRN Reason Start Time Stop Time Status Last Admin Dose Admin Acetaminophen (Tylenol) 650 mg PRN Q6HRS PRN PO MILD PAIN / TEMP > 100.3'F 10/14/20 20:15 Apixaban (Eliquis) 5 mg BID PO 10/14/20 21:00 11/08/20 20:18 Aspirin (Aspirin Enteric Coated) 81 mg DAILY PO 10/15/20 09:00 11/08/20 09:01 Aspirin (Aspirin Enteric Coated) 81 mg DAILY PO 10/15/20 09:00 UNV Divalproex Sodium (Depakote Sprinkles) 500 mg 0900,1300,1700 PO 10/15/20 09:00 10/22/20 17:40 DC 10/22/20 13:11 Divalproex Sodium (Depakote Sprinkles) 750 mg HS PO 10/14/20 21:00 10/29/20 18:37 DC 10/28/20 20:58 Furosemide (Lasix) 20 mg DAILY PO 10/15/20 09:00 11/08/20 09:02 Gabapentin (Neurontin) 100 mg BID PO 10/14/20 21:00 10/30/20 16:03 DC 10/30/20 08:37 Acetaminophen/ Hydrocodone Bitart (Lortab 5/325) 1 tab PRN Q4HRS PRN PO MODERATE PAIN, SEVERE PAIN 10/14/20 20:15 10/24/20 17:49 Hydroxyzine HCl (Atarax) 25 mg PRN TID PRN PO ITCHING 10/14/20 21:00 11/08/20 13:17 Insulin Human Lispro (HumaLOG) 1 units TIDWMEALS SQ 10/15/20 08:00 Cancel Linagliptin (Tradjenta) 5 mg DAILY PO 10/15/20 09:00 11/08/20 09:00 Al Hydroxide/Mg Hydroxide (Mylanta Plus Xs) 15 ml PRN BFRMEALHC PRN PO DYSPEPSIA 10/14/20 20:15 Melatonin (Melatonin) 3 mg HS PO 10/14/20 21:00 11/08/20 20:18 Metformin HCl (Glucophage) 750 mg BIDWMEALS PO 10/15/20 08:00 11/08/20 17:20 Metoprolol Succinate (Toprol Xl) 50 mg DAILY PO 10/15/20 09:00 11/08/20 09:02 Nystatin (Nystop) 15 rocio BID TP 10/14/20 21:00 10/24/20 19:29 DC 10/24/20 09:30 Risperidone (RisperDAL) 0.5 mg BID PO 10/14/20 21:00 10/30/20 16:03 DC 10/30/20 08:35 Sertraline HCl (Zoloft) 50 mg DAILY PO 10/15/20 09:00 11/08/20 08:59 Atorvastatin Calcium (Lipitor) 40 mg QHS PO 10/14/20 21:00 11/08/20 20:18 Cyanocobalamin (Vitamin B-12) 500 mcg DAILY PO 10/15/20 09:00 11/08/20 09:01 Insulin Glargine (Lantus Syringe) 35 unit DAILY SQ 10/15/20 09:00 10/21/20 16:52 DC 10/21/20 10:03 Lactobacillus Rhamnosus (Culturelle) 1 cap DAILY PO 10/15/20 09:00 11/08/20 09:00 Magnesium Hydroxide (Milk Of Magnesia) 2,400 mg PRN DAILY PRN PO CONSTIPATION 10/14/20 21:00 10/25/20 20:04 Multi-Ingredient Ointment (Analgesic [place]) 1 rocio PRN Q6HRS PRN TP MUSCLE PAIN 10/14/20 21:00 Multivitamins/ Calcium (Thera-M Plus) 1 tab DAILY PO 10/15/20 09:00 11/08/20 09:01 Pantoprazole Sodium (Protonix) 40 mg BIDWMEALS PO 10/15/20 08:00 11/08/20 17:19 Potassium Chloride (Klor-Con) 10 meq DAILYWBKFT PO 10/15/20 08:00 11/08/20 08:59 Vitamin D (Vitamin D3) 500 unit DAILY PO 10/15/20 09:00 11/08/20 09:01 Acetaminophen (Tylenol) 650 mg PRN Q6HRS PRN PO MILD PAIN / TEMP > 100.3'F 10/14/20 23:15 10/14/20 23:34 DC Multi-Ingredient Ointment (Analgesic [place]) 1 rocio PRN QID PRN TP MUSCLE PAIN 10/14/20 23:15 10/16/20 08:37 DC Al Hydroxide/Mg Hydroxide (Mylanta Plus Xs) 15 ml PRN AFTMEALHC PRN PO DYSPEPSIA 10/14/20 23:15 10/14/20 23:39 DC Magnesium Hydroxide (Milk Of Magnesia) 2,400 mg PRN QHS PRN PO CONSTIPATION 10/14/20 23:15 10/14/20 23:39 DC Insulin Human Lispro (HumaLOG) 0-5 UNITS TIDWMEALS SQ 10/15/20 12:00 11/07/20 17:24 Ertapenem 1 gm/ Sodium Chloride 50 ml @ 100 mls/hr DAILY IV 10/20/20 09:00 10/28/20 22:00 DC 10/28/20 09:40 Insulin Glargine (Lantus Syringe) 20 unit DAILY SQ 10/21/20 17:00 11/08/20 09:11 Divalproex Sodium (Depakote Sprinkles) 500 mg 0900,1400 PO 10/23/20 09:00 10/29/20 18:37 DC 10/29/20 13:48 Nystatin (Nystop) 1 rocio BID TP 10/24/20 21:00 11/08/20 20:18 Divalproex Sodium (Depakote Sprinkles) 500 mg 0900,1400 PO 10/30/20 09:00 10/30/20 16:03 DC 10/30/20 12:45 Divalproex Sodium (Depakote Sprinkles) 750 mg HS PO 10/29/20 21:00 10/30/20 16:03 DC 10/29/20 20:27 Valproic Acid (Depakene) 750 mg QHS PO 10/30/20 21:00 10/31/20 15:02 DC 10/30/20 19:47 Valproic Acid (Depakene) 500 mg 0900,1400 PO 10/31/20 09:00 10/31/20 15:02 DC 10/31/20 13:36 Gabapentin (Neurontin Oral Soln) 100 mg BID PO 10/30/20 21:00 10/31/20 15:02 DC 10/31/20 08:26 Risperidone (RisperDAL) 0.5 mg BID PO 10/30/20 21:00 10/31/20 15:02 DC 10/31/20 08:29 Divalproex Sodium (Depakote Sprinkles) 750 mg HS PO 10/31/20 21:00 11/08/20 20:18 Divalproex Sodium (Depakote Sprinkles) 500 mg 0900,1400 PO 11/01/20 09:00 11/08/20 13:17 Risperidone (RisperDAL) 0.5 mg BID PO 10/31/20 21:00 11/08/20 20:18 Gabapentin (Neurontin) 100 mg BID PO 10/31/20 21:00 11/08/20 20:18 Vitamin A/Vitamin D (Vitamin A & D Ointment) 1 rocio BID76 TP 11/02/20 11:30 11/08/20 17:40 I have reviewed the current psychotropics carefully including drug interactions. Risk benefit ratio favors no change other than as noted in my dictated progress note. Diagnosis: Problems: (1) Schizoaffective disorder, bipolar type (2) Impulse control disorder, unspecified (3) Anxiety disorder, unspecified (4) Bipolar disorder, curr episode mixed, severe, with psychotic features CHAVO WANG MD Nov 08, 2020 22:00
--- NOTE | 2020-11-08 22:25 | NUR ---
Nursing Note Pt wanders the hallway, goes in and out of rooms, confused or at least acting confused. Reminded her that we had the same conversation several times about the location of her room. States "I thought that I was in my room?", reminded her to look at the door frame for her name outside the room.
[2020-11-09] MEDS ORDERED: VITS5OIN3 TP (00:55)
[2020-11-09 05:44] VITALS: BP 129/77
[2020-11-09] MEDS: VITS A & D/LANOLIN TOPICAL OINTMENT 42GM TUBE. TP SCH ×2 (05:45→17:10)
--- NOTE | 2020-11-09 07:02 | PDOC ---
Exam Note: Edgar Note: This note is a late entry for 11/08/2020 covers elements not covered in my initial note. Subjective: The patient was seen individually in the evening of 11/08/2020 with Mahesh MELGAR, discussed and reviewed the chart. She slept 7-1/4 hours previous night. The patient has done better with ADLs. She is still noted to be needy and attention seeking per nursing staff. I met with her in her room at length. She was very appreciative of my visit. She does tend to yell out when it is very quiet and she gets anxious. We discussed using music as a distraction and we will look into having an iPad with music for her if possible to see how she responds to this. Review of Systems: Ambulation impaired in wheelchair. No CV, , pulmonary, eye, ENT system symptoms on review. Mental Status Exam: The patient is reasonably oriented to herself. Speech is coherent. Abstraction is fair. Computation impaired. Language function intact. Attention span short. Mood and affect anxious, labile. Laboratory Data: Reviewed. Impression: Schizoaffective disorder bipolar type. Impulse control disorder unspecified. Anxiety disorder unspecified. Plan: Continue rest of the psychotropics unchanged. We discussed using music as a distraction and we will look into having an iPad with music for her if possible to see how she responds to this. Assessment: Vital Signs/I&O: Vital Signs Date Time Temp Pulse Resp B/P (MAP) Pulse Ox O2 Delivery O2 Flow Rate FiO2 11/09/20 05:44 97.3 67 18 129/77 (94) 98 Room Air I & O 11/08/20 11/08/20 11/09/20 15:00 23:00 07:00 Intake Total 480 ml 480 ml Balance 480 ml 480 ml Labs: Laboratory Tests Test 11/08/20 07:50 11/08/20 11:35 11/08/20 16:19 11/08/20 19:16 Glucose (Fingerstick) 94 mg/dL (70-99) 132 mg/dL (70-99) H 117 mg/dL (70-99) H 233 mg/dL (70-99) H Current Medications: Meds: Laboratory Tests Test 11/08/20 07:50 11/08/20 11:35 11/08/20 16:19 11/08/20 19:16 Glucose (Fingerstick) 94 mg/dL 132 mg/dL 117 mg/dL 233 mg/dL Current Medications Medications (Trade) Dose Ordered Sig/Alexx Route PRN Reason Start Time Stop Time Status Last Admin Dose Admin Acetaminophen (Tylenol) 650 mg PRN Q6HRS PRN PO MILD PAIN / TEMP > 100.3'F 10/14/20 20:15 Apixaban (Eliquis) 5 mg BID PO 10/14/20 21:00 11/08/20 20:18 Aspirin (Aspirin Enteric Coated) 81 mg DAILY PO 10/15/20 09:00 11/08/20 09:01 Aspirin (Aspirin Enteric Coated) 81 mg DAILY PO 10/15/20 09:00 UNV Divalproex Sodium (Depakote Sprinkles) 500 mg 0900,1300,1700 PO 10/15/20 09:00 10/22/20 17:40 DC 10/22/20 13:11 Divalproex Sodium (Depakote Sprinkles) 750 mg HS PO 10/14/20 21:00 10/29/20 18:37 DC 10/28/20 20:58 Furosemide (Lasix) 20 mg DAILY PO 10/15/20 09:00 11/08/20 09:02 Gabapentin (Neurontin) 100 mg BID PO 10/14/20 21:00 10/30/20 16:03 DC 10/30/20 08:37 Acetaminophen/ Hydrocodone Bitart (Lortab 5/325) 1 tab PRN Q4HRS PRN PO MODERATE PAIN, SEVERE PAIN 10/14/20 20:15 10/24/20 17:49 Hydroxyzine HCl (Atarax) 25 mg PRN TID PRN PO ITCHING 10/14/20 21:00 11/08/20 13:17 Insulin Human Lispro (HumaLOG) 1 units TIDWMEALS SQ 10/15/20 08:00 Cancel Linagliptin (Tradjenta) 5 mg DAILY PO 10/15/20 09:00 11/08/20 09:00 Al Hydroxide/Mg Hydroxide (Mylanta Plus Xs) 15 ml PRN BFRMEALHC PRN PO DYSPEPSIA 10/14/20 20:15 Melatonin (Melatonin) 3 mg HS PO 10/14/20 21:00 11/08/20 20:18 Metformin HCl (Glucophage) 750 mg BIDWMEALS PO 10/15/20 08:00 11/08/20 17:20 Metoprolol Succinate (Toprol Xl) 50 mg DAILY PO 10/15/20 09:00 11/08/20 09:02 Nystatin (Nystop) 15 rocio BID TP 10/14/20 21:00 10/24/20 19:29 DC 10/24/20 09:30 Risperidone (RisperDAL) 0.5 mg BID PO 10/14/20 21:00 10/30/20 16:03 DC 10/30/20 08:35 Sertraline HCl (Zoloft) 50 mg DAILY PO 10/15/20 09:00 11/08/20 08:59 Atorvastatin Calcium (Lipitor) 40 mg QHS PO 10/14/20 21:00 11/08/20 20:18 Cyanocobalamin (Vitamin B-12) 500 mcg DAILY PO 10/15/20 09:00 11/08/20 09:01 Insulin Glargine (Lantus Syringe) 35 unit DAILY SQ 10/15/20 09:00 10/21/20 16:52 DC 10/21/20 10:03 Lactobacillus Rhamnosus (Culturelle) 1 cap DAILY PO 10/15/20 09:00 11/08/20 09:00 Magnesium Hydroxide (Milk Of Magnesia) 2,400 mg PRN DAILY PRN PO CONSTIPATION 10/14/20 21:00 10/25/20 20:04 Multi-Ingredient Ointment (Analgesic [place]) 1 rocio PRN Q6HRS PRN TP MUSCLE PAIN 10/14/20 21:00 Multivitamins/ Calcium (Thera-M Plus) 1 tab DAILY PO 10/15/20 09:00 11/08/20 09:01 Pantoprazole Sodium (Protonix) 40 mg BIDWMEALS PO 10/15/20 08:00 11/08/20 17:19 Potassium Chloride (Klor-Con) 10 meq DAILYWBKFT PO 10/15/20 08:00 11/08/20 08:59 Vitamin D (Vitamin D3) 500 unit DAILY PO 10/15/20 09:00 11/08/20 09:01 Acetaminophen (Tylenol) 650 mg PRN Q6HRS PRN PO MILD PAIN / TEMP > 100.3'F 10/14/20 23:15 10/14/20 23:34 DC Multi-Ingredient Ointment (Analgesic [place]) 1 rocio PRN QID PRN TP MUSCLE PAIN 10/14/20 23:15 10/16/20 08:37 DC Al Hydroxide/Mg Hydroxide (Mylanta Plus Xs) 15 ml PRN AFTMEALHC PRN PO DYSPEPSIA 10/14/20 23:15 10/14/20 23:39 DC Magnesium Hydroxide (Milk Of Magnesia) 2,400 mg PRN QHS PRN PO CONSTIPATION 10/14/20 23:15 10/14/20 23:39 DC Insulin Human Lispro (HumaLOG) 0-5 UNITS TIDWMEALS SQ 10/15/20 12:00 11/07/20 17:24 Ertapenem 1 gm/ Sodium Chloride 50 ml @ 100 mls/hr DAILY IV 10/20/20 09:00 10/28/20 22:00 DC 10/28/20 09:40 Insulin Glargine (Lantus Syringe) 20 unit DAILY SQ 10/21/20 17:00 11/08/20 09:11 Divalproex Sodium (Depakote Sprinkles) 500 mg 0900,1400 PO 10/23/20 09:00 10/29/20 18:37 DC 10/29/20 13:48 Nystatin (Nystop) 1 rocio BID TP 10/24/20 21:00 11/08/20 20:18 Divalproex Sodium (Depakote Sprinkles) 500 mg 0900,1400 PO 10/30/20 09:00 10/30/20 16:03 DC 10/30/20 12:45 Divalproex Sodium (Depakote Sprinkles) 750 mg HS PO 10/29/20 21:00 10/30/20 16:03 DC 10/29/20 20:27 Valproic Acid (Depakene) 750 mg QHS PO 10/30/20 21:00 10/31/20 15:02 DC 10/30/20 19:47 Valproic Acid (Depakene) 500 mg 0900,1400 PO 10/31/20 09:00 10/31/20 15:02 DC 10/31/20 13:36 Gabapentin (Neurontin Oral Soln) 100 mg BID PO 10/30/20 21:00 10/31/20 15:02 DC 10/31/20 08:26 Risperidone (RisperDAL) 0.5 mg BID PO 10/30/20 21:00 10/31/20 15:02 DC 10/31/20 08:29 Divalproex Sodium (Depakote Sprinkles) 750 mg HS PO 10/31/20 21:00 11/08/20 20:18 Divalproex Sodium (Depakote Sprinkles) 500 mg 0900,1400 PO 11/01/20 09:00 11/08/20 13:17 Risperidone (RisperDAL) 0.5 mg BID PO 10/31/20 21:00 11/08/20 20:18 Gabapentin (Neurontin) 100 mg BID PO 10/31/20 21:00 11/08/20 20:18 Vitamin A/Vitamin D (Vitamin A & D Ointment) 1 rocio BID76 TP 11/02/20 11:30 11/09/20 05:45 I have reviewed the current psychotropics carefully including drug interactions. Risk benefit ratio favors no change other than as noted in my dictated progress note. Diagnosis: Problems: (1) Schizoaffective disorder, bipolar type (2) Impulse control disorder, unspecified (3) Anxiety disorder, unspecified (4) Bipolar disorder, curr episode mixed, severe, with psychotic features CHAVO WANG MD Nov 09, 2020 07:02
[2020-11-09] MEDS: INSULIN LISPRO 300 UNITS/3 ML VIAL. SQ SCH ×3 (08:00→17:00)
[2020-11-09] MEDS: ASPIRIN ENTERIC COATED 81 MG TABLET.DR. PO SCH (09:56)
[2020-11-09] MEDS: MULTIVITAMIN with MINERAL TABLET. PO SCH (09:56)
[2020-11-09] MEDS: GABAPENTIN 100 MG CAPSULE. PO SCH ×2 (09:56→20:30)
[2020-11-09] MEDS: LINAGLIPTIN 5 MG TABLET PO SCH (09:56)
[2020-11-09] MEDS: LACTOBACILLUS RHAMNOSUS GG 1 CAPSULE. PO SCH (09:57)
[2020-11-09] MEDS: risperiDONE 0.25 MG TABLET. PO SCH ×2 (09:57→20:31)
[2020-11-09] MEDS: CYANOCOBALAMIN (VITAMIN B-12) 250 MCG TABLET. PO SCH (09:57)
[2020-11-09] MEDS: FUROSEMIDE 20 MG TABLET PO SCH (09:58)
[2020-11-09] MEDS: APIXABAN 5 MG TABLET. PO SCH ×2 (09:58→20:30)
[2020-11-09] MEDS: CHOLECALCIFEROL (VITAMIN D3) 1,000 UNIT TABLET PO SCH (09:58)
[2020-11-09] MEDS: PANTOPRAZOLE 40 MG TABLET. PO SCH ×2 (09:58→17:09)
[2020-11-09] MEDS: POTASSIUM CHLORIDE 10 MEQ TABLET.ER. PO SCH (09:58)
[2020-11-09] MEDS: SERTRALINE 50 MG TABLET. PO SCH (09:58)
[2020-11-09] MEDS: metFORMIN 500 MG TABLET PO SCH ×2 (09:58→17:10)
[2020-11-09] MEDS: DIVALPROEX 125 MG CAP.SPRINK PO SCH ×3 (09:59→20:30)
[2020-11-09] MEDS: METOPROLOL SUCC 24HR ER 50 MG TAB.ER.24H. PO SCH (09:59)
[2020-11-09] MEDS: NYSTATIN TOPICAL POWDER 15GM BOTTLE. TP SCH ×2 (10:00→20:31)
[2020-11-09] MEDS: INSULIN GLARGINE SYRINGE. SQ SCH (10:01)
[2020-11-09] MEDS: hydrOXYzine HCL 25 MG TABLET PO PRN ×2 (10:02→17:09)
--- NOTE | 2020-11-09 12:31 | NUR ---
[facility] Social Work Discharge Planning Form Patient Name MICAELA LYNCH Admit Date: 13 Oct 2020 DISCHARGE PLAN Discharge Destination: Pt to return to [facility]. 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 Special Instructions/Notes: Please fax discharge orders, discharge medication list and discharge summary to the fax number listed below. DISCHARGE TO FACILITY Facility: [facility] Address: [address] [place] [address] Contact Name: Stefanie Armstrong, [employer] Supervisor: Contact Name: Trinidad Natarajan, Admissions: PCP: To see the facility physician
[2020-11-09] MEDS ORDERED: LOPERAMIDE 2 MG CAPSULE PO PRN (13:15)
[2020-11-09 15:37] VITALS: BP 91/58
--- NOTE | 2020-11-09 17:33 | NUR ---
Patient has been disorganized, helpless, attention seeking, compliant with medications, and mildly confused throughout this shift. Patient repeatedly calls out 'Help' or 'Hello' while awake. She remained in bed for most of the shift with q2h turns related to the wound on her buttocks. Patient repeatedly made rude comments about her roommate such as 'When is she leaving, I can't stand her' and 'She's hideous'. Patient has complained of feeling jittery at times during shift, prn medication provided per eMAR. Will continue to monitor and report to MD during rounds.
[2020-11-09] MEDS: MELATONIN 3 MG TABLET PO SCH (20:30)
[2020-11-09] MEDS: ATORVASTATIN CALCIUM 20 MG TABLET PO SCH (20:31)
--- NOTE | 2020-11-09 21:51 | PDOC ---
Exam Note: Edgar Note: Please also refer to the separate dictated note~for this date of service dictated separately.~Patient seen individually. Discussed the patient with Nursing staff reviewed the chart.~Reviewed interim history and current functioning. Reviewed vital signs,~Labs/ Radiology~and current medications noted below. Continue current treatment with the changes noted in the dictated addendum note Assessment: Vital Signs/I&O: Vital Signs Date Time Temp Pulse Resp B/P (MAP) Pulse Ox O2 Delivery O2 Flow Rate FiO2 11/09/20 15:37 97.7 84 20 91/58 (69) 96 11/09/20 05:44 Room Air I & O 11/08/20 11/08/20 11/09/20 15:00 23:00 07:00 Intake Total 480 ml 480 ml Balance 480 ml 480 ml Labs: Laboratory Tests Test 11/09/20 07:42 11/09/20 12:06 11/09/20 16:37 11/09/20 19:40 Glucose (Fingerstick) 106 mg/dL (70-99) H 143 mg/dL (70-99) H 141 mg/dL (70-99) H 107 mg/dL (70-99) H Current Medications: Meds: Laboratory Tests Test 11/09/20 07:42 11/09/20 12:06 11/09/20 16:37 11/09/20 19:40 Glucose (Fingerstick) 106 mg/dL 143 mg/dL 141 mg/dL 107 mg/dL Current Medications Medications (Trade) Dose Ordered Sig/Alexx Route PRN Reason Start Time Stop Time Status Last Admin Dose Admin Acetaminophen (Tylenol) 650 mg PRN Q6HRS PRN PO MILD PAIN / TEMP > 100.3'F 10/14/20 20:15 Apixaban (Eliquis) 5 mg BID PO 10/14/20 21:00 11/09/20 20:30 Aspirin (Aspirin Enteric Coated) 81 mg DAILY PO 10/15/20 09:00 11/09/20 09:56 Aspirin (Aspirin Enteric Coated) 81 mg DAILY PO 10/15/20 09:00 UNV Divalproex Sodium (Depakote Sprinkles) 500 mg 0900,1300,1700 PO 10/15/20 09:00 10/22/20 17:40 DC 10/22/20 13:11 Divalproex Sodium (Depakote Sprinkles) 750 mg HS PO 10/14/20 21:00 10/29/20 18:37 DC 10/28/20 20:58 Furosemide (Lasix) 20 mg DAILY PO 10/15/20 09:00 11/09/20 09:58 Gabapentin (Neurontin) 100 mg BID PO 10/14/20 21:00 10/30/20 16:03 DC 10/30/20 08:37 Acetaminophen/ Hydrocodone Bitart (Lortab 5/325) 1 tab PRN Q4HRS PRN PO MODERATE PAIN, SEVERE PAIN 10/14/20 20:15 10/24/20 17:49 Hydroxyzine HCl (Atarax) 25 mg PRN TID PRN PO ITCHING 10/14/20 21:00 11/09/20 17:09 Insulin Human Lispro (HumaLOG) 1 units TIDWMEALS SQ 10/15/20 08:00 Cancel Linagliptin (Tradjenta) 5 mg DAILY PO 10/15/20 09:00 11/09/20 09:56 Al Hydroxide/Mg Hydroxide (Mylanta Plus Xs) 15 ml PRN BFRMEALHC PRN PO DYSPEPSIA 10/14/20 20:15 Melatonin (Melatonin) 3 mg HS PO 10/14/20 21:00 11/09/20 20:30 Metformin HCl (Glucophage) 750 mg BIDWMEALS PO 10/15/20 08:00 11/09/20 17:10 Metoprolol Succinate (Toprol Xl) 50 mg DAILY PO 10/15/20 09:00 11/09/20 09:59 Nystatin (Nystop) 15 rocio BID TP 10/14/20 21:00 10/24/20 19:29 DC 10/24/20 09:30 Risperidone (RisperDAL) 0.5 mg BID PO 10/14/20 21:00 10/30/20 16:03 DC 10/30/20 08:35 Sertraline HCl (Zoloft) 50 mg DAILY PO 10/15/20 09:00 11/09/20 09:58 Atorvastatin Calcium (Lipitor) 40 mg QHS PO 10/14/20 21:00 11/09/20 20:31 Cyanocobalamin (Vitamin B-12) 500 mcg DAILY PO 10/15/20 09:00 11/09/20 09:57 Insulin Glargine (Lantus Syringe) 35 unit DAILY SQ 10/15/20 09:00 10/21/20 16:52 DC 10/21/20 10:03 Lactobacillus Rhamnosus (Culturelle) 1 cap DAILY PO 10/15/20 09:00 11/09/20 09:57 Magnesium Hydroxide (Milk Of Magnesia) 2,400 mg PRN DAILY PRN PO CONSTIPATION 10/14/20 21:00 10/25/20 20:04 Multi-Ingredient Ointment (Analgesic [place]) 1 rocio PRN Q6HRS PRN TP MUSCLE PAIN 10/14/20 21:00 Multivitamins/ Calcium (Thera-M Plus) 1 tab DAILY PO 10/15/20 09:00 11/09/20 09:56 Pantoprazole Sodium (Protonix) 40 mg BIDWMEALS PO 10/15/20 08:00 11/09/20 17:09 Potassium Chloride (Klor-Con) 10 meq DAILYWBKFT PO 10/15/20 08:00 11/09/20 09:58 Vitamin D (Vitamin D3) 500 unit DAILY PO 10/15/20 09:00 11/09/20 09:58 Acetaminophen (Tylenol) 650 mg PRN Q6HRS PRN PO MILD PAIN / TEMP > 100.3'F 10/14/20 23:15 10/14/20 23:34 DC Multi-Ingredient Ointment (Analgesic [place]) 1 rocio PRN QID PRN TP MUSCLE PAIN 10/14/20 23:15 10/16/20 08:37 DC Al Hydroxide/Mg Hydroxide (Mylanta Plus Xs) 15 ml PRN AFTMEALHC PRN PO DYSPEPSIA 10/14/20 23:15 10/14/20 23:39 DC Magnesium Hydroxide (Milk Of Magnesia) 2,400 mg PRN QHS PRN PO CONSTIPATION 10/14/20 23:15 10/14/20 23:39 DC Insulin Human Lispro (HumaLOG) 0-5 UNITS TIDWMEALS SQ 10/15/20 12:00 11/07/20 17:24 Ertapenem 1 gm/ Sodium Chloride 50 ml @ 100 mls/hr DAILY IV 10/20/20 09:00 10/28/20 22:00 DC 10/28/20 09:40 Insulin Glargine (Lantus Syringe) 20 unit DAILY SQ 10/21/20 17:00 11/09/20 10:01 Divalproex Sodium (Depakote Sprinkles) 500 mg 0900,1400 PO 10/23/20 09:00 10/29/20 18:37 DC 10/29/20 13:48 Nystatin (Nystop) 1 rocio BID TP 10/24/20 21:00 11/09/20 20:31 Divalproex Sodium (Depakote Sprinkles) 500 mg 0900,1400 PO 10/30/20 09:00 10/30/20 16:03 DC 10/30/20 12:45 Divalproex Sodium (Depakote Sprinkles) 750 mg HS PO 10/29/20 21:00 10/30/20 16:03 DC 10/29/20 20:27 Valproic Acid (Depakene) 750 mg QHS PO 10/30/20 21:00 10/31/20 15:02 DC 10/30/20 19:47 Valproic Acid (Depakene) 500 mg 0900,1400 PO 10/31/20 09:00 10/31/20 15:02 DC 10/31/20 13:36 Gabapentin (Neurontin Oral Soln) 100 mg BID PO 10/30/20 21:00 10/31/20 15:02 DC 10/31/20 08:26 Risperidone (RisperDAL) 0.5 mg BID PO 10/30/20 21:00 10/31/20 15:02 DC 10/31/20 08:29 Divalproex Sodium (Depakote Sprinkles) 750 mg HS PO 10/31/20 21:00 11/09/20 20:30 Divalproex Sodium (Depakote Sprinkles) 500 mg 0900,1400 PO 11/01/20 09:00 11/09/20 14:31 Risperidone (RisperDAL) 0.5 mg BID PO 10/31/20 21:00 11/09/20 20:31 Gabapentin (Neurontin) 100 mg BID PO 10/31/20 21:00 11/09/20 20:30 Vitamin A/Vitamin D (Vitamin A & D Ointment) 1 rocio BID76 TP 11/02/20 11:30 11/09/20 17:10 Loperamide HCl (Imodium) 2 mg PRN Q15MIN PRN PO DIARRHEA 11/09/20 13:15 I have reviewed the current psychotropics carefully including drug interactions. Risk benefit ratio favors no change other than as noted in my dictated progress note. Diagnosis: Problems: (1) Schizoaffective disorder, bipolar type (2) Impulse control disorder, unspecified (3) Anxiety disorder, unspecified (4) Bipolar disorder, curr episode mixed, severe, with psychotic features CHAVO WANG MD Nov 09, 2020 21:51
--- NOTE | 2020-11-10 01:00 | NUR ---
Nursing Note Pt sits outside the nurses station, repeatedly states "Hello, Hello?" even after being addressed she will continue to be intrusive and insistent. Pt instructed to please stop with the constant speech pattern. Once pt is engaged then will talk at length about where she is from, what she did for a living, the [facility] area etc. Med compliant and cooperative, takes redirection well eventually. Denies other complaints.
[2020-11-10 05:46] VITALS: BP 119/71
--- NOTE | 2020-11-10 07:01 | PDOC ---
Exam Note: Edgar Note: This note is a late entry for 11/09/2020 covers elements not covered in my initial note. Subjective: The patient was seen individually in the evening of 11/09/2020 with Mahesh MELGAR, discussed and reviewed the chart. She slept 7 hours previous night. The patient has been yelling less and somewhat quite rude to her roommate. Review of Systems: Ambulation impaired in wheelchair. No CV, , pulmonary, eye, ENT system symptoms on review. Mental Status Exam: The patient is reasonably oriented to herself. Speech is coherent. Abstraction is fair. Computation impaired. Language function intact. Attention span short. Mood and affect quite anxious. Laboratory Data: Reviewed. Impression: Schizoaffective disorder bipolar type. Impulse control disorder unspecified. Anxiety disorder unspecified. Plan: Continue rest of the psychotropics unchanged. We discussed with nursing staff about using music to help reduce her anxiety but apparently this was failed in the past. Assessment: Vital Signs/I&O: Vital Signs Date Time Temp Pulse Resp B/P (MAP) Pulse Ox O2 Delivery O2 Flow Rate FiO2 11/10/20 05:46 96.9 65 14 119/71 (87) 94 Room Air I & O 11/09/20 11/09/20 11/10/20 15:00 23:00 07:00 Intake Total 600 ml 360 ml Balance 600 ml 360 ml Labs: Laboratory Tests Test 11/09/20 07:42 11/09/20 12:06 11/09/20 16:37 11/09/20 19:40 Glucose (Fingerstick) 106 mg/dL (70-99) H 143 mg/dL (70-99) H 141 mg/dL (70-99) H 107 mg/dL (70-99) H Current Medications: Meds: Laboratory Tests Test 11/09/20 07:42 11/09/20 12:06 11/09/20 16:37 11/09/20 19:40 Glucose (Fingerstick) 106 mg/dL 143 mg/dL 141 mg/dL 107 mg/dL Current Medications Medications (Trade) Dose Ordered Sig/Alexx Route PRN Reason Start Time Stop Time Status Last Admin Dose Admin Acetaminophen (Tylenol) 650 mg PRN Q6HRS PRN PO MILD PAIN / TEMP > 100.3'F 10/14/20 20:15 Apixaban (Eliquis) 5 mg BID PO 10/14/20 21:00 11/09/20 20:30 Aspirin (Aspirin Enteric Coated) 81 mg DAILY PO 10/15/20 09:00 11/09/20 09:56 Aspirin (Aspirin Enteric Coated) 81 mg DAILY PO 10/15/20 09:00 UNV Divalproex Sodium (Depakote Sprinkles) 500 mg 0900,1300,1700 PO 10/15/20 09:00 10/22/20 17:40 DC 10/22/20 13:11 Divalproex Sodium (Depakote Sprinkles) 750 mg HS PO 10/14/20 21:00 10/29/20 18:37 DC 10/28/20 20:58 Furosemide (Lasix) 20 mg DAILY PO 10/15/20 09:00 11/09/20 09:58 Gabapentin (Neurontin) 100 mg BID PO 10/14/20 21:00 10/30/20 16:03 DC 10/30/20 08:37 Acetaminophen/ Hydrocodone Bitart (Lortab 5/325) 1 tab PRN Q4HRS PRN PO MODERATE PAIN, SEVERE PAIN 10/14/20 20:15 10/24/20 17:49 Hydroxyzine HCl (Atarax) 25 mg PRN TID PRN PO ITCHING 10/14/20 21:00 11/09/20 17:09 Insulin Human Lispro (HumaLOG) 1 units TIDWMEALS SQ 10/15/20 08:00 Cancel Linagliptin (Tradjenta) 5 mg DAILY PO 10/15/20 09:00 11/09/20 09:56 Al Hydroxide/Mg Hydroxide (Mylanta Plus Xs) 15 ml PRN BFRMEALHC PRN PO DYSPEPSIA 10/14/20 20:15 Melatonin (Melatonin) 3 mg HS PO 10/14/20 21:00 11/09/20 20:30 Metformin HCl (Glucophage) 750 mg BIDWMEALS PO 10/15/20 08:00 11/09/20 17:10 Metoprolol Succinate (Toprol Xl) 50 mg DAILY PO 10/15/20 09:00 11/09/20 09:59 Nystatin (Nystop) 15 rocio BID TP 10/14/20 21:00 10/24/20 19:29 DC 10/24/20 09:30 Risperidone (RisperDAL) 0.5 mg BID PO 10/14/20 21:00 10/30/20 16:03 DC 10/30/20 08:35 Sertraline HCl (Zoloft) 50 mg DAILY PO 10/15/20 09:00 11/09/20 09:58 Atorvastatin Calcium (Lipitor) 40 mg QHS PO 10/14/20 21:00 11/09/20 20:31 Cyanocobalamin (Vitamin B-12) 500 mcg DAILY PO 10/15/20 09:00 11/09/20 09:57 Insulin Glargine (Lantus Syringe) 35 unit DAILY SQ 10/15/20 09:00 10/21/20 16:52 DC 10/21/20 10:03 Lactobacillus Rhamnosus (Culturelle) 1 cap DAILY PO 10/15/20 09:00 11/09/20 09:57 Magnesium Hydroxide (Milk Of Magnesia) 2,400 mg PRN DAILY PRN PO CONSTIPATION 10/14/20 21:00 10/25/20 20:04 Multi-Ingredient Ointment (Analgesic Springer) 1 rocio PRN Q6HRS PRN TP MUSCLE PAIN 10/14/20 21:00 Multivitamins/ Calcium (Thera-M Plus) 1 tab DAILY PO 10/15/20 09:00 11/09/20 09:56 Pantoprazole Sodium (Protonix) 40 mg BIDWMEALS PO 10/15/20 08:00 11/09/20 17:09 Potassium Chloride (Klor-Con) 10 meq DAILYWBKFT PO 10/15/20 08:00 11/09/20 09:58 Vitamin D (Vitamin D3) 500 unit DAILY PO 10/15/20 09:00 11/09/20 09:58 Acetaminophen (Tylenol) 650 mg PRN Q6HRS PRN PO MILD PAIN / TEMP > 100.3'F 10/14/20 23:15 10/14/20 23:34 DC Multi-Ingredient Ointment (Analgesic Springer) 1 rocio PRN QID PRN TP MUSCLE PAIN 10/14/20 23:15 10/16/20 08:37 DC Al Hydroxide/Mg Hydroxide (Mylanta Plus Xs) 15 ml PRN AFTMEALHC PRN PO DYSPEPSIA 10/14/20 23:15 10/14/20 23:39 DC Magnesium Hydroxide (Milk Of Magnesia) 2,400 mg PRN QHS PRN PO CONSTIPATION 10/14/20 23:15 10/14/20 23:39 DC Insulin Human Lispro (HumaLOG) 0-5 UNITS TIDWMEALS SQ 10/15/20 12:00 11/07/20 17:24 Ertapenem 1 gm/ Sodium Chloride 50 ml @ 100 mls/hr DAILY IV 10/20/20 09:00 10/28/20 22:00 DC 10/28/20 09:40 Insulin Glargine (Lantus Syringe) 20 unit DAILY SQ 10/21/20 17:00 11/09/20 10:01 Divalproex Sodium (Depakote Sprinkles) 500 mg 0900,1400 PO 10/23/20 09:00 10/29/20 18:37 DC 10/29/20 13:48 Nystatin (Nystop) 1 rocio BID TP 10/24/20 21:00 11/09/20 20:31 Divalproex Sodium (Depakote Sprinkles) 500 mg 0900,1400 PO 10/30/20 09:00 10/30/20 16:03 DC 10/30/20 12:45 Divalproex Sodium (Depakote Sprinkles) 750 mg HS PO 10/29/20 21:00 10/30/20 16:03 DC 10/29/20 20:27 Valproic Acid (Depakene) 750 mg QHS PO 10/30/20 21:00 10/31/20 15:02 DC 10/30/20 19:47 Valproic Acid (Depakene) 500 mg 0900,1400 PO 10/31/20 09:00 10/31/20 15:02 DC 10/31/20 13:36 Gabapentin (Neurontin Oral Soln) 100 mg BID PO 10/30/20 21:00 10/31/20 15:02 DC 10/31/20 08:26 Risperidone (RisperDAL) 0.5 mg BID PO 10/30/20 21:00 10/31/20 15:02 DC 10/31/20 08:29 Divalproex Sodium (Depakote Sprinkles) 750 mg HS PO 10/31/20 21:00 11/09/20 20:30 Divalproex Sodium (Depakote Sprinkles) 500 mg 0900,1400 PO 11/01/20 09:00 11/09/20 14:31 Risperidone (RisperDAL) 0.5 mg BID PO 10/31/20 21:00 11/09/20 20:31 Gabapentin (Neurontin) 100 mg BID PO 10/31/20 21:00 11/09/20 20:30 Vitamin A/Vitamin D (Vitamin A & D Ointment) 1 rocio BID76 TP 11/02/20 11:30 11/09/20 17:10 Loperamide HCl (Imodium) 2 mg PRN Q15MIN PRN PO DIARRHEA 11/09/20 13:15 I have reviewed the current psychotropics carefully including drug interactions. Risk benefit ratio favors no change other than as noted in my dictated progress note. Diagnosis: Problems: (1) Schizoaffective disorder, bipolar type (2) Impulse control disorder, unspecified (3) Anxiety disorder, unspecified (4) Bipolar disorder, curr episode mixed, severe, with psychotic features CHAVO WANG MD Nov 10, 2020 07:01
[2020-11-10 08:19] VITALS: BP 119/71
[2020-11-10] MEDS: DIVALPROEX 125 MG CAP.SPRINK PO SCH (08:19)
[2020-11-10] MEDS: SERTRALINE 50 MG TABLET. PO SCH (08:19)
[2020-11-10] MEDS: MULTIVITAMIN with MINERAL TABLET. PO SCH (08:19)
[2020-11-10] MEDS: METOPROLOL SUCC 24HR ER 50 MG TAB.ER.24H. PO SCH (08:19)
[2020-11-10] MEDS: CHOLECALCIFEROL (VITAMIN D3) 1,000 UNIT TABLET PO SCH (08:20)
[2020-11-10] MEDS: APIXABAN 5 MG TABLET. PO SCH (08:20)
[2020-11-10] MEDS: GABAPENTIN 100 MG CAPSULE. PO SCH (08:20)
[2020-11-10] MEDS: FUROSEMIDE 20 MG TABLET PO SCH (08:20)
[2020-11-10] MEDS: PANTOPRAZOLE 40 MG TABLET. PO SCH (08:20)
[2020-11-10] MEDS: risperiDONE 0.25 MG TABLET. PO SCH (08:21)
[2020-11-10] MEDS: LACTOBACILLUS RHAMNOSUS GG 1 CAPSULE. PO SCH (08:21)
[2020-11-10] MEDS: metFORMIN 500 MG TABLET PO SCH (08:21)
[2020-11-10] MEDS: ASPIRIN ENTERIC COATED 81 MG TABLET.DR. PO SCH (08:22)
[2020-11-10] MEDS: POTASSIUM CHLORIDE 10 MEQ TABLET.ER. PO SCH (08:22)
[2020-11-10] MEDS: VITS A & D/LANOLIN TOPICAL OINTMENT 42GM TUBE. TP SCH (08:22)
[2020-11-10] MEDS: INSULIN LISPRO 300 UNITS/3 ML VIAL. SQ SCH ×2 (08:22→11:50)
[2020-11-10] MEDS: LINAGLIPTIN 5 MG TABLET PO SCH (08:22)
[2020-11-10] MEDS: CYANOCOBALAMIN (VITAMIN B-12) 250 MCG TABLET. PO SCH (08:23)
[2020-11-10] MEDS: NYSTATIN TOPICAL POWDER 15GM BOTTLE. TP SCH (08:23)
[2020-11-10] MEDS: INSULIN GLARGINE SYRINGE. SQ SCH (09:23)
--- NOTE | 2020-11-10 14:25 | NUR ---
Transition Record was faxed to follow-up provider with the following elements: Reason for admission, procedures, tests, principal diagnosis, pending studies, patient instructions, 23/12 contact information for unit, phone number to obtain pending test results, plan for follow-up care, physician follow-up, advanced directive information, and medication list with dose, duration and instructions. This information was included in the following documents: History and physical, lab results, study results, progress notes, social work planning form, DC instruction form, patient visit summary, and medication reconciliation form. Date & time record faxed: 11/10/20 at 0153 Record faxed to: [facility] fax# [phone] Record discussed with/ report given to: Dimple SHETH at 1416 Pt discharged at 1410 via w/c accomp by facility's transport personnel. all personal items sent with pt
--- NOTE | 2020-11-10 22:07 | PDOC ---
Exam Note: Edgar Note: Please also refer to the separate dictated note~for this date of service dictated separately.~Patient seen individually. Discussed the patient with Nursing staff reviewed the chart.~Reviewed interim history and current functioning. Reviewed vital signs,~Labs/ Radiology~and current medications noted below. Continue current treatment with the changes noted in the dictated addendum note Assessment: Vital Signs/I&O: Vital Signs Date Time Temp Pulse Resp B/P (MAP) Pulse Ox O2 Delivery O2 Flow Rate FiO2 11/10/20 08:19 65 119/71 11/10/20 05:46 96.9 14 94 Room Air I & O 11/09/20 11/09/20 11/10/20 15:00 23:00 07:00 Intake Total 600 ml 360 ml Balance 600 ml 360 ml Labs: Laboratory Tests Test 11/10/20 07:31 11/10/20 11:38 Glucose (Fingerstick) 97 mg/dL (70-99) 132 mg/dL (70-99) H Current Medications: Meds: Laboratory Tests Test 11/10/20 07:31 11/10/20 11:38 Glucose (Fingerstick) 97 mg/dL 132 mg/dL Current Medications Medications (Trade) Dose Ordered Sig/Alexx Route PRN Reason Start Time Stop Time Status Last Admin Dose Admin Acetaminophen (Tylenol) 650 mg PRN Q6HRS PRN PO MILD PAIN / TEMP > 100.3'F 10/14/20 20:15 11/10/20 14:37 DC Apixaban (Eliquis) 5 mg BID PO 10/14/20 21:00 11/10/20 14:37 DC 11/10/20 08:20 Aspirin (Aspirin Enteric Coated) 81 mg DAILY PO 10/15/20 09:00 11/10/20 14:37 DC 11/10/20 08:22 Aspirin (Aspirin Enteric Coated) 81 mg DAILY PO 10/15/20 09:00 UNV Divalproex Sodium (Depakote Sprinkles) 500 mg 0900,1300,1700 PO 10/15/20 09:00 10/22/20 17:40 DC 10/22/20 13:11 Divalproex Sodium (Depakote Sprinkles) 750 mg HS PO 10/14/20 21:00 10/29/20 18:37 DC 10/28/20 20:58 Furosemide (Lasix) 20 mg DAILY PO 10/15/20 09:00 11/10/20 14:37 DC 11/10/20 08:20 Gabapentin (Neurontin) 100 mg BID PO 10/14/20 21:00 10/30/20 16:03 DC 10/30/20 08:37 Acetaminophen/ Hydrocodone Bitart (Lortab 5/325) 1 tab PRN Q4HRS PRN PO MODERATE PAIN, SEVERE PAIN 10/14/20 20:15 11/10/20 14:37 DC 10/24/20 17:49 Hydroxyzine HCl (Atarax) 25 mg PRN TID PRN PO ITCHING 10/14/20 21:00 11/10/20 14:37 DC 11/09/20 17:09 Insulin Human Lispro (HumaLOG) 1 units TIDWMEALS SQ 10/15/20 08:00 Cancel Linagliptin (Tradjenta) 5 mg DAILY PO 10/15/20 09:00 11/10/20 14:37 DC 11/10/20 08:22 Al Hydroxide/Mg Hydroxide (Mylanta Plus Xs) 15 ml PRN BFRMEALHC PRN PO DYSPEPSIA 10/14/20 20:15 11/10/20 14:37 DC Melatonin (Melatonin) 3 mg HS PO 10/14/20 21:00 11/10/20 14:37 DC 11/09/20 20:30 Metformin HCl (Glucophage) 750 mg BIDWMEALS PO 10/15/20 08:00 11/10/20 14:37 DC 11/10/20 08:21 Metoprolol Succinate (Toprol Xl) 50 mg DAILY PO 10/15/20 09:00 11/10/20 14:37 DC 11/10/20 08:19 Nystatin (Nystop) 15 rocio BID TP 10/14/20 21:00 10/24/20 19:29 DC 10/24/20 09:30 Risperidone (RisperDAL) 0.5 mg BID PO 10/14/20 21:00 10/30/20 16:03 DC 10/30/20 08:35 Sertraline HCl (Zoloft) 50 mg DAILY PO 10/15/20 09:00 11/10/20 14:37 DC 11/10/20 08:19 Atorvastatin Calcium (Lipitor) 40 mg QHS PO 10/14/20 21:00 11/10/20 14:37 DC 11/09/20 20:31 Cyanocobalamin (Vitamin B-12) 500 mcg DAILY PO 10/15/20 09:00 11/10/20 14:37 DC 11/10/20 08:23 Insulin Glargine (Lantus Syringe) 35 unit DAILY SQ 10/15/20 09:00 10/21/20 16:52 DC 10/21/20 10:03 Lactobacillus Rhamnosus (Culturelle) 1 cap DAILY PO 10/15/20 09:00 11/10/20 14:37 DC 11/10/20 08:21 Magnesium Hydroxide (Milk Of Magnesia) 2,400 mg PRN DAILY PRN PO CONSTIPATION 10/14/20 21:00 11/10/20 14:37 DC 10/25/20 20:04 Multi-Ingredient Ointment (Analgesic Delta) 1 rocio PRN Q6HRS PRN TP MUSCLE PAIN 10/14/20 21:00 11/10/20 14:37 DC Multivitamins/ Calcium (Thera-M Plus) 1 tab DAILY PO 10/15/20 09:00 11/10/20 14:37 DC 11/10/20 08:19 Pantoprazole Sodium (Protonix) 40 mg BIDWMEALS PO 10/15/20 08:00 11/10/20 14:37 DC 11/10/20 08:20 Potassium Chloride (Klor-Con) 10 meq DAILYWBKFT PO 10/15/20 08:00 11/10/20 14:37 DC 11/10/20 08:22 Vitamin D (Vitamin D3) 500 unit DAILY PO 10/15/20 09:00 11/10/20 14:37 DC 11/10/20 08:20 Acetaminophen (Tylenol) 650 mg PRN Q6HRS PRN PO MILD PAIN / TEMP > 100.3'F 10/14/20 23:15 10/14/20 23:34 DC Multi-Ingredient Ointment (Analgesic Delta) 1 rocio PRN QID PRN TP MUSCLE PAIN 10/14/20 23:15 10/16/20 08:37 DC Al Hydroxide/Mg Hydroxide (Mylanta Plus Xs) 15 ml PRN AFTMEALHC PRN PO DYSPEPSIA 10/14/20 23:15 10/14/20 23:39 DC Magnesium Hydroxide (Milk Of Magnesia) 2,400 mg PRN QHS PRN PO CONSTIPATION 10/14/20 23:15 10/14/20 23:39 DC Insulin Human Lispro (HumaLOG) 0-5 UNITS TIDWMEALS SQ 10/15/20 12:00 11/10/20 14:37 DC 11/07/20 17:24 Ertapenem 1 gm/ Sodium Chloride 50 ml @ 100 mls/hr DAILY IV 10/20/20 09:00 10/28/20 22:00 DC 10/28/20 09:40 Insulin Glargine (Lantus Syringe) 20 unit DAILY SQ 10/21/20 17:00 11/10/20 14:37 DC 11/10/20 09:23 Divalproex Sodium (Depakote Sprinkles) 500 mg 0900,1400 PO 10/23/20 09:00 10/29/20 18:37 DC 10/29/20 13:48 Nystatin (Nystop) 1 rocio BID TP 10/24/20 21:00 11/10/20 14:37 DC 11/10/20 08:23 Divalproex Sodium (Depakote Sprinkles) 500 mg 0900,1400 PO 10/30/20 09:00 10/30/20 16:03 DC 10/30/20 12:45 Divalproex Sodium (Depakote Sprinkles) 750 mg HS PO 10/29/20 21:00 10/30/20 16:03 DC 10/29/20 20:27 Valproic Acid (Depakene) 750 mg QHS PO 10/30/20 21:00 10/31/20 15:02 DC 10/30/20 19:47 Valproic Acid (Depakene) 500 mg 0900,1400 PO 10/31/20 09:00 10/31/20 15:02 DC 10/31/20 13:36 Gabapentin (Neurontin Oral Soln) 100 mg BID PO 10/30/20 21:00 10/31/20 15:02 DC 10/31/20 08:26 Risperidone (RisperDAL) 0.5 mg BID PO 10/30/20 21:00 10/31/20 15:02 DC 10/31/20 08:29 Divalproex Sodium (Depakote Sprinkles) 750 mg HS PO 10/31/20 21:00 11/10/20 14:37 DC 11/09/20 20:30 Divalproex Sodium (Depakote Sprinkles) 500 mg 0900,1400 PO 11/01/20 09:00 11/10/20 14:37 DC 11/10/20 08:19 Risperidone (RisperDAL) 0.5 mg BID PO 10/31/20 21:00 11/10/20 14:37 DC 11/10/20 08:21 Gabapentin (Neurontin) 100 mg BID PO 10/31/20 21:00 11/10/20 14:37 DC 11/10/20 08:20 Vitamin A/Vitamin D (Vitamin A & D Ointment) 1 rocio BID76 TP 11/02/20 11:30 11/10/20 14:37 DC 11/10/20 08:22 Loperamide HCl (Imodium) 2 mg PRN Q15MIN PRN PO DIARRHEA 11/09/20 13:15 11/10/20 14:37 DC I have reviewed the current psychotropics carefully including drug interactions. Risk benefit ratio favors no change other than as noted in my dictated progress note. Diagnosis: Problems: (1) Schizoaffective disorder, bipolar type (2) Impulse control disorder, unspecified (3) Anxiety disorder, unspecified (4) Bipolar disorder, curr episode mixed, severe, with psychotic features CHAVO WANG MD Nov 10, 2020 22:07
--- NOTE | 2020-11-12 22:33 | DS ---
DATE OF DISCHARGE: 11/10/2020 This is a late entry for date of service 11/10/2020 covers the elements not covered in my initial note of 11/10/2020. REASON FOR ADMISSION: The patient is a 70-year-old female referred to us from [facility] on account of an acute exacerbation of her schizoaffective disorder, bipolar type. The patient had been refusing showers and bathing. She is threatening to kick others asses. She was yelling out, name calling peers, belligerent, verbally aggressive, cursing, socially disruptive, agitated, banging on the duncan. She had thrown things during outbursts. The patient had failed outpatient psychiatric interventions resulting in this referral. SIGNIFICANT FINDINGS AND CLINICAL COURSE: Following admission, the patient was seen daily individually by myself from a psychiatric standpoint. Medical followup with Dr. Reddy/Dr. Bowen. The patient had marked mood lability, paranoia, and significant anxiety. She did have ESBL UTI, which as described was complicating behavioral symptoms. She was treated for the UTI and her psychotropics adjusted. She finally seemed to respond to a combination of Depakote sprinkles 500 mg at 0900, 1400 and 750 mg at bedtime with a Valproic acid level therapeutic at 58. Risperdal 0.5 mg b.i.d., Zoloft 50 mg a day, melatonin 3 mg at bedtime, Atarax 25 mg at bedtime p.r.n. anxiety. Gradually mood appeared to stabilize. She was less agitated, still a little impulsive. REVIEW OF SYSTEMS: Prior to discharge, ambulation impaired in wheelchair. Does complain of anxiety. No CV, , pulmonary, eye system symptoms on review. MENTAL STATUS EXAMINATION: Oriented to herself, situation. Speech is coherent. Abstraction fair. Computation impaired. Language function intact. Mood and affect, lability is improved. FINAL DIAGNOSES: Schizoaffective disorder, bipolar type, mixed with psychotic features; anxiety disorder, unspecified; impulse control disorder. Rest unchanged from admission including ESBL urinary tract infection. DISCHARGE MEDICATIONS: Please refer to the [facility]. DISCHARGE INSTRUCTIONS: Outpatient psychiatric and medical followup at the [facility]. LA/[place]RI[place] DR: LA/abhinav TID: [id number]
== END 2020-11-10 14:10 | DRG 885 ==
LOC: GEROPSY 07:30
PROVIDERS: ADMIT Psychiatry & Neurology Psychiatry; ATTEND Psychiatry & Neurology Psychiatry
DX: F25.0 Schizoaffective disorder, bipolar type (principal); N18.9 Chronic kidney disease, unspecified; Z16.12 Extended spectrum beta lactamase (ESBL) resistance; N39.0 Urinary tract infection, site not specified; E11.9 Type 2 diabetes mellitus without complications; B96.20 Unspecified Escherichia coli [E. coli] as the cause of diseases classified elsewhere; E78.5 Hyperlipidemia, unspecified; F03.90 Unspecified dementia, unspecified severity, without behavioral disturbance, psychotic disturbance, mood disturbance, and anxiety; F09 Unspecified mental disorder due to known physiological condition; F41.1 Generalized anxiety disorder; F63.9 Impulse disorder, unspecified; Z79.899 Other long term (current) drug therapy; Z86.718 Personal history of other venous thrombosis and embolism; Z89.512 Acquired absence of left leg below knee; E11.22 Type 2 diabetes mellitus with diabetic chronic kidney disease; I48.0 Paroxysmal atrial fibrillation; E11.51 Type 2 diabetes mellitus with diabetic peripheral angiopathy without gangrene; I12.9 Hypertensive chronic kidney disease with stage 1 through stage 4 chronic kidney disease, or unspecified chronic kidney disease
CPT/HCPCS: 36415; 80053; 80061; 80164; 81001; 82306; 82607; 82947; 83036; 83540; 83550; 83735; 84436; 84443; 84480; 85025; 85027; 85379; 86592; 87077; 87086; 87186; 93005; G0378; G0379; J1335; J1815; U0003; 97530